=== PATIENT | male | born 1965 | race Caucasian/White ===

== ENCOUNTER 2019-03-22 17:11 | Emergency (ER) | payer SELFPAY ==
[~2019-03-22] VITALS: Ht 170.2 cm; Wt 73.2 kg
[2019-03-22 17:37] VITALS: Ht 170.2 cm; Wt 73.2 kg
[2019-03-22] MEDS ORDERED: ACETAMINOPHEN 500 MG TAB PO STA (17:50)
[2019-03-22] MEDS ORDERED: SOD CHLORIDE 0.9% 1,000 ML IV STA (17:50)
[2019-03-22] MEDS ORDERED: KETOROLAC 15 MG INJ IV STA (17:50)
--- NOTE | 2019-03-22 18:25 | ERD ---
ER Documentation Chief Complaint Chief Complaint PT REPORTS AP, NAUSEA X 3 DAYS HPI Very pleasant 54-year-old gentleman history of hypertension and diabetes who presents with 2 to 3 days of symptoms that include mild headache, sore throat, dry nonproductive cough. He denies any significant shortness of breath. Occasionally he has epigastric abdominal discomfort but no significant nausea vomiting diarrhea or constipation. Abdominal pain seems to be very mild component of this presentation. Patient was started on oral antibiotic by his primary care physician for the symptoms. The patient was only had one dose of this medication. He presents because of a fever. He did not take any Tylenol or Motrin prior to arrival. ROS All systems reviewed and are negative except as per history of present illness. Medications Home Meds Active Scripts Ibuprofen* (Motrin*) 800 Mg Tab, 800 MG PO Q6H PRN for PAIN AND OR ELEVATED TEMP, #30 TAB Prov:CRISPIN JUSTICE MD 03/22/19 Albuterol Sulfate* (Ventolin HFA*) 18 Gm Hfa.aer.ad, 2 PUFF INHALATION Q4H, #1 INHALER Prov:CRISPIN JUSTICE MD 03/22/19 Allergies Allergies: Coded Allergies: No Known Allergy (Unverified , 03/22/19) PMhx/Soc Medical and Surgical Hx: pt denies Surgical Hx Hx Cardiac Disorders: Yes (HTN, HYPERLIPIDEMIA) Hx Alcohol Use: No Hx Substance Use: No Hx Tobacco Use: No Smoking Status: Never smoker FmHx Family History: diabetes Physical Exam Vitals Vital Signs Date Temp Pulse Resp B/P (MAP) Pulse Ox O2 O2 Flow FiO2 Time Delivery Rate 03/22/19 112 22 139/79 98 Nasal 2.0 18:33 (99) Cannula 03/22/19 103.4 18:08 03/22/19 103.4 119 22 139/79 96 Room Air 18:01 (99) 03/22/19 102.4 121 20 160/79 95 17:37 (106) Physical Exam General: Well developed, well nourished, no acute distress Head: Normocephalic, atraumatic. Eyes: Pupils equally reactive, EOM intact ENT: Moist mucous membranes, posterior pharynx without swelling or exudates, uvula midline, tympanic membranes are nonbulging bilaterally Neck: Supple, no lymphadenopathy Respiratory: Lungs clear bilaterally, no distress Cardiovascular: RRR, no murmurs, rubs, or gallops Abdominal: Soft, non-tender, non-distended, no peritoneal signs : Deferred MSK: No edema, no unilateral swelling, 5/5 strength Neurologic: Alert and oriented, moving all extremities, normal speech, no focal weakness, no cerebellar signs Skin: No rash Psych: Normal mood Result Diagram: 03/22/19 1755 03/22/19 1754 Results 24 hrs Laboratory Tests Test 03/22/19 17:53 03/22/19 17:54 White Blood Count 5.4 10^3/ul Red Blood Count 2.91 10^6/ul Hemoglobin 9.1 g/dl Hematocrit 27.0 % Mean Corpuscular Volume 92.8 fl Mean Corpuscular Hemoglobin 31.3 pg Mean Corpuscular Hemoglobin Concent 33.7 g/dl Red Cell Distribution Width 13.2 % Platelet Count 117 10^3/UL Mean Platelet Volume 8.8 fl Immature Granulocytes % 7.800 % Neutrophils % 56.1 % Lymphocytes % 21.1 % Monocytes % 14.8 % Eosinophils % 0.0 % Basophils % 0.2 % Nucleated Red Blood Cells % 0.0 /100WBC Immature Granulocytes # 0.420 10^3/ul Neutrophils # 3.0 10^3/ul Lymphocytes # 1.1 10^3/ul Monocytes # 0.8 10^3/ul Eosinophils # 0.0 10^3/ul Basophils # 0.0 10^3/ul Nucleated Red Blood Cells # 0.0 10^3/ul Sodium Level 133 mmol/L Potassium Level 4.0 mmol/L Chloride Level 98 mmol/L Carbon Dioxide Level 24 mmol/L Anion Gap 11 Blood Urea Nitrogen 14 mg/dl Creatinine 0.83 mg/dl Est Glomerular Filtrat Rate mL/min > 60 mL/min Glucose Level 109 mg/dl Calcium Level 8.8 mg/dl Current Medications Medications Dose Sig/Oj Start Time Status Last (Trade) Ordered Route PRN Stop Time Admin Dose Reason Admin Sodium 1,000 ml @ Q1H STAT 03/22/19 DC 03/22/19 Chloride 1,000 mls/hr IV 17:50 18:05 03/22/19 18:49 Ketorolac 15 mg ONCE STAT 03/22/19 DC 03/22/19 Tromethamine IV 17:50 18:05 (Toradol) 03/22/19 17:52 1,000 mg ONCE STAT 03/22/19 DC 03/22/19 Acetaminophen PO 17:50 18:08 (Tylenol 03/22/19 17:52 Tab) Procedures/MDM EKG, MONITORS, & DIAGNOSTIC IMAGING: Chest x-ray: I reviewed and interpreted a 1 view of the chest Mediastinum: No enlargement Cardiac silhouette: No cardiomegaly Airspace: Clear lung camara bilaterally without evidence of pneumothorax Bones: No evidence of fracture LAB INTERPRETATION: I reviewed the laboratory testing and it shows mild anemia consistent with his reported baseline MEDICAL DECISION MAKING: The patient signs and symptoms are very consistent with likely viral upper respiratory tract infection. The patient does have a fever and needs to be evaluated for pneumonia but the patient initially started what appears to be amoxicillin. Patient does not have any clinical signs or symptoms concerning for pneumonia. The abdominal exam is benign without concern for acute intraabdominal process. Abdominal pain seems to be a very mild component of his symptomatology. 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 No concern for acute appendicitis or alternative acute interabdominal process. ER COURSE: * The patient continues to be well-appearing, he has been improved symptomatically with IV fluids and antipyretics. Vital signs improving. * No laboratory testing or diagnostic imaging suggestive of bacterial illness. The patient can continue his azithromycin given by his primary care physician. Again however this is more likely consistent with viral process. Return precautions were discussed and understood. * Outpatient follow-up for his baseline anemia is appropriate CONSULTATION: None DISPOSITION PLAN: The patient does not have an identifiable emergent medical condition that warrants inpatient hospitalization at this time. The patient is deemed safe for discharge with outpatient follow-up. We discussed follow up with the patient's primary care doctor within 24 to 48 h ours as needed. We also discussed return to the emergency room for worsening symptoms or worsening condition. Outpatient referral: None required Discharge Medications: Ventolin, Motrin Departure Diagnosis: Primary Impression: Acute bronchitis Bronchitis organism: unspecified organism Qualified Codes: J20.9 - Acute bronchitis, unspecified Additional Impression: Anemia Anemia type: unspecified type Qualified Codes: D64.9 - Anemia, unspecified Condition: Stable CRISPIN JUSTICE MD Mar 22, 2019 18:25
[2019-03-22 19:02] VITALS: BP 129/77; PULSE 114; RESP 24
[2019-03-22] MEDS ORDERED: IBUP800T48 PO (19:02)
[2019-03-22] MEDS ORDERED: ALBU18HF INHALATION (19:02)
[2019-03-23] MEDS ORDERED: METF500T24 PO (15:29)
[2019-03-23] MEDS ORDERED: ACET325T45 PO (15:29)
[2019-03-23] MEDS ORDERED: ONDA4TAB13 PO (15:29)
[2019-03-23] MEDS ORDERED: AZIT500T5 PO (15:30)
[2019-03-23] MEDS ORDERED: LISI-471 PO (16:07)
[2019-03-23] MEDS ORDERED: METO-429 PO (16:07)
== END 2019-03-22 19:10 | disposition home or self-care (01) ==
LOC: E/R 17:11
DX: J20.9 Acute bronchitis, unspecified (principal); I10 Essential (primary) hypertension; E11.9 Type 2 diabetes mellitus without complications; D64.9 Anemia, unspecified
CPT/HCPCS: 36415; 71045; 80048; 85025; 96374; 99284; J1885; J7030

== ENCOUNTER 2019-03-23 14:36 | Inpatient (IN) | payer MEDICAID ==
[~2019-03-23] VITALS: Ht 167.6 cm; Wt 70.5 kg
[~2019-03-23 14:36] MED LIST: ALBU18HF INHALATION; IBUP800T48 PO
[2019-03-23] MEDS ORDERED: METF500T24 PO (15:29)
[2019-03-23] MEDS ORDERED: ONDA4TAB13 PO (15:29)
[2019-03-23] MEDS ORDERED: ACET325T45 PO (15:29)
[2019-03-23] MEDS ORDERED: AZIT500T5 PO (15:30)
[2019-03-23] MEDS ORDERED: METO-429 PO (16:07)
[2019-03-23] MEDS ORDERED: LISI-471 PO (16:07)
[2019-03-23] MEDS ORDERED: ONDANSETRON 4 MG INJ IV PRN (16:30)
[2019-03-23] MEDS ORDERED: ACETAMINOPHEN 325 MG TAB PO PRN (16:30)
--- NOTE | 2019-03-23 16:35 | ERD ---
ER Documentation Chief Complaint Chief Complaint called back to er for abnoraml lab results from yesterday HPI Patient is a 54-year-old male with hypertension and diabetes who presents with blasts in his blood. Please note a glass ribbon machine operator assistant was used for the entire history and physical exam. The patient was seen yesterday for multiple complaints and was diagnosed with bronchitis. CBC was done which showed anemia but today our pathologist Dr. Cash called and said that there were blasts seen on the manual differential. He saw the patient was discharged and want to make sure the patient was followed up. Therefore the patient was called by myself and our charge nurse to return for reevaluation and admission. The pa tia was seen yesterday for abdominal pain, headache, and cough. He had fever at that time but has had no fever today. His primary doctor is Dr. Cason. ROS All systems reviewed and are negative except as per history of present illness. Medications Home Meds Active Scripts Ibuprofen* (Motrin*) 800 Mg Tab, 800 MG PO Q6H PRN for PAIN AND OR ELEVATED TEMP, #30 TAB Prov:CRISPIN JUSTICE MD 03/22/19 Reported Medications Metoprolol Tartrate* (Lopressor*) 50 Mg Tab, 50 MG PO DAILY, #60 TAB 03/23/19 Lisinopril* (Lisinopril*) 20 Mg Tablet, 20 MG PO DAILY, #30 TAB 03/23/19 Azithromycin* (Azithromycin*) 500 Mg Tablet, 500 MG PO DAILY, TAB START DATE 03/21/19 03/23/19 Acetaminophen* (Acetaminophen*) 325 Mg Tablet, 325 MG PO QID PRN for PAIN AND OR ELEVATED TEMP, #30 TAB 03/23/19 Ondansetron Hcl* (Zofran*) 4 Mg Tab, 4 MG PO TID PRN for NAUSEA AND OR VOMITING, TAB 03/23/19 Metformin Hcl* (Metformin Hcl*) 500 Mg Tablet, 500 MG PO WITH BREAKFAST DINNE, #60 TAB 03/23/19 Discontinued Scripts Albuterol Sulfate* (Ventolin HFA*) 18 Gm Hfa.aer.ad, 2 PUFF INHALATION Q4H, #1 INHALER Prov:CRISPIN JUSTICE MD 03/22/19 Allergies Allergies: Coded Allergies: No Known Allergy (Unverified , 03/23/19) PMhx/Soc History of Surgery: No Anesthesia Reaction: No Hx Neurological Disorder: No Hx Respiratory Disorders: No Hx Cardiac Disorders: Yes (HTN, HYPERLIPIDEMIA) Hx Psychiatric Problems: No Hx Miscellaneous Medical Probl: No Hx Alcohol Use: No Hx Substance Use: No Hx Tobacco Use: No Smoking Status: Never smoker FmHx Family History: No diabetes Physical Exam Vitals Vital Signs Date Temp Pulse Resp B/P (MAP) Pulse Ox O2 O2 Flow FiO2 Time Delivery Rate 03/23/19 98.2 100 18 150/91 96 Room Air 15:15 (110) 03/23/19 98.2 114 18 152/79 98 14:40 (103) Physical Exam Const: No acute distress Head: Atraumatic Eyes: Normal Conjunctiva ENT: Normal External Ears, Nose and Mouth. Neck: Full range of motion. No meningismus. Resp: Clear to auscultation bilaterally Cardio: Regular rate and rhythm, no murmurs Abd: Soft, non tender, non distended. Normal bowel sounds Skin: No petechiae or rashes Back: No midline or flank tenderness Ext: No cyanosis, or edema Neur: Awake and alert Psych: Normal Mood and Affect Result Diagram: 03/23/19 1518 03/23/19 1518 Results 24 hrs Laboratory Tests Test 03/23/19 15:18 White Blood Count 5.8 10^3/ul Red Blood Count 2.83 10^6/ul Hemoglobin 8.8 g/dl Hematocrit 25.7 % Mean Corpuscular Volume 90.8 fl Mean Corpuscular Hemoglobin 31.1 pg Mean Corpuscular Hemoglobin Concent 34.2 g/dl Red Cell Distribution Width 13.4 % Platelet Count 107 10^3/UL Mean Platelet Volume 9.0 fl Immature Granulocytes % 5.000 % Neutrophils % 57.5 % Segmented Neutrophils % (Manual) 63 % Lymphocytes % 24.2 % Lymphocytes % (Manual) 27 % Monocytes % 13.1 % Monocytes % (Manual) 2 % Eosinophils % 0.0 % Basophils % 0.2 % Promyelocytes % (Manual) 1 % Blast Cells % (Manual) 7.0 % Nucleated Red Blood Cells % 0.0 /100WBC Immature Granulocytes # 0.290 10^3/ul Neutrophils # 3.3 10^3/ul Lymphocytes (Manual) 1.5 10^3/ul Lymphocytes # 1.4 10^3/ul Monocytes # 0.8 10^3/ul Monocytes # (Manual) 0.1 10^3/ul Eosinophils # 0.0 10^3/ul Basophils # 0.0 10^3/ul Promyelocytes # 0.0 10^3/ul Nucleated Red Blood Cells # 0.0 10^3/ul Platelet Estimate NORMAL Polychromasia 1+ Sodium Level 133 mmol/L Potassium Level 3.8 mmol/L Chloride Level 100 mmol/L Carbon Dioxide Level 20 mmol/L Anion Gap 13 Blood Urea Nitrogen 21 mg/dl Creatinine 1.15 mg/dl Est Glomerular Filtrat Rate mL/min > 60 mL/min Glucose Level 152 mg/dl Calcium Level 8.5 mg/dl Total Bilirubin 0.6 mg/dl Direct Bilirubin 0.00 mg/dl Indirect Bilirubin 0.6 mg/dl Aspartate Amino Transf (AST/SGOT) 17 IU/L Alanine Aminotransferase (ALT/SGPT) 22 IU/L Alkaline Phosphatase 81 IU/L Lactate Dehydrogenase 597 IU/L Total Protein 7.6 g/dl Albumin 3.4 g/dl Globulin 4.20 g/dl Albumin/Globulin Ratio 0.80 Lipase 23 U/L Current Medications Medications Dose Sig/Oj Start Time Status Last (Trade) Ordered Route PRN Stop Time Admin Dose Reason Admin Ondansetron 4 mg BRIDGE ORDER 03/23/19 HCl (Zofran PRN IV 16:30 Inj) NAUSEA/VOMITI 03/24/19 16:29 NG 650 mg ER BRIDGE 03/23/19 Acetaminophen PRN PO 16:30 (Tylenol .MILD PAIN 03/24/19 16:29 Tab) 1-3 OR TEMP Procedures/MDM Patient is a 54-year-old male who presents with anemia with blasts in his blood. I am concerned for a bone marrow cancer. I doubt sepsis at this time. The patient will be admitted to the care of the panel team to a medical surgical bed. He will likely need bone marrow biopsy to confirm his diagnosis. I believe inpatient admission is appropriate. 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
--- NOTE | 2019-03-23 17:26 | HP ---
Date/Time of Note Date/Time of Note DATE: 03/23/19 TIME: 17:25 Assessment/Plan VTE Prophylaxis Pharmacological prophylaxis: NA/contraindicated Pharm contraindication: thrombocytopenia Lines/Catheters IV [facility] Assessment/Plan Hospital Course 54-year-old male with comorbidities including hypertension and diabetes mellitus who presented to the emergency room on 03/22/2019 with febrile illness and was discharged home on oral antibiotics, who was called back on 03/23/2019 as per the instruction of the pathologist for increased blast cells on CBC drawn on 03/22/2019. 1. Febrile illness with underlying anemia, thrombocytopenia, and blast cells on manual differential. To rule out myeloproliferative disorder. Obtain hematology consult. Bone marrow biopsy if required will be deferred to hematology. Obtain LDH and haptoglobin. Obtain iron panel. Obtain stool for OB. 2. Diabetes mellitus type 2. Obtain hemoglobin A1c to evaluate the blood glucose control over the past 3 months. Start the patient on sliding scale insulin along with basal insulin. 3. Hypertension. Resume antihypertensives. Plan: The patient will be admitted to inpatient medical surgical floor. The patient will be started on a carbohydrate controlled diet. The patient will be started on DVT prophylaxis (SCDs). The patient will remain a full code. Activities will be as tolerated. The rest of the patient's management will be based on the clinical course, inputs from consultants, and the results of diagnostic studies. Based on the patient's clinical presentation, he most probably requires at least 2 midnights' stay for further management and evaluation of his clinical presentation. The patient was seen in collaboration with Dr. Avilez. Result Diagram: 03/23/19 1518 03/23/19 1518 Results 24hrs Laboratory Tests Test 03/23/19 15:18 White Blood Count 5.8 Red Blood Count 2.83 L Hemoglobin 8.8 L Hematocrit 25.7 L Mean Corpuscular Volume 90.8 Mean Corpuscular Hemoglobin 31.1 Mean Corpuscular Hemoglobin Concent 34.2 Red Cell Distribution Width 13.4 Platelet Count 107 L Mean Platelet Volume 9.0 Immature Granulocytes % 5.000 H Neutrophils % 57.5 Segmented Neutrophils % (Manual) 63 Lymphocytes % 24.2 Lymphocytes % (Manual) 27 Monocytes % 13.1 H Monocytes % (Manual) 2 Eosinophils % 0.0 Basophils % 0.2 Promyelocytes % (Manual) 1 H Blast Cells % (Manual) 7.0 H Nucleated Red Blood Cells % 0.0 Immature Granulocytes # 0.290 H Neutrophils # 3.3 Lymphocytes (Manual) 1.5 Lymphocytes # 1.4 Monocytes # 0.8 Monocytes # (Manual) 0.1 L Eosinophils # 0.0 Basophils # 0.0 Promyelocytes # 0.0 Nucleated Red Blood Cells # 0.0 Platelet Estimate NORMAL Polychromasia 1+ Sodium Level 133 L Potassium Level 3.8 Chloride Level 100 Carbon Dioxide Level 20 L Anion Gap 13 Blood Urea Nitrogen 21 H Creatinine 1.15 Est Glomerular Filtrat Rate mL/min > 60 Glucose Level 152 Calcium Level 8.5 Total Bilirubin 0.6 Direct Bilirubin 0.00 Indirect Bilirubin 0.6 Aspartate Amino Transf (AST/SGOT) 17 Alanine Aminotransferase (ALT/SGPT) 22 Alkaline Phosphatase 81 Lactate Dehydrogenase 597 Total Protein 7.6 Albumin 3.4 Globulin 4.20 H Albumin/Globulin Ratio 0.80 Lipase 23 HPI/ROS Admit Date/Time Admit Date/Time Hx of Present Illness Reason for admission: Called back for further work-up because of presence of blastic cells in the blood work-up done on 03/22/2019. Consultants 1. Hematology/oncology. This is a 54-year-old male with past medical history of hypertension and diabetes mellitus type 2. The patient came to the emergency room on 03/22/2019 because of fevers and was discharged home on Zithromax for possible underlying upper respiratory infection. The patient's blood that was drawn on 03/22/2019 showed 4% blast cells on manual differential. Therefore, the hospital pathologist informed the ER physician and the ER physician called the patient back for further work-up for any underlying myeloproliferative disorder. The patient has been complaining of night sweats for the past 3 weeks. The patient also verbalized intentional/unintentional weight loss of 9 pounds over the past 1 month. He was complaining of occasional dry cough. He denied any hematemesis, hematochezia or melena. He was complaining of constipation. Lab work in the emergency room on 03/23/2019 showed normocytic anemia with thrombocytopenia and blast cells of 7%. The patient also had minimal hyponatremia. The patient's chest x-ray that was done on 03/22/2019 was negative for any acute cardiopulmonary process. ROS Constitutional: chills, febrile, other (night sweats, weight loss (intentional Vs unintentional)) Eyes: no complaints ENT: no complaints Respiratory: cough Cardiovascular: no complaints Gastrointestinal: constipation Genitourinary: no complaints Musculoskeletal: no complaints Skin: no complaints Neurologic: no complaints Endocrine: no complaints Lymphatic: no complaints Psychological: no complaints Immunologic: no complaints PMH/Family/Social Past Medical History 1. HTN. 2. DM. 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 Alcohol Use: occasionally Smoking Status: Never smoker Drug Use: none Exam/Review of Systems Vital Signs Vitals Vital Signs Date Temp Pulse Resp B/P (MAP) Pulse Ox O2 O2 Flow FiO2 Time Delivery Rate 03/23/19 98.2 100 18 150/91 96 Room Air 15:15 (110) Exam Exam General: Adequately build 54 year-old male lying in bed in no apparent distress. HEENT: Normocephalic, atraumatic. Eyes: Anicteric sclerae, conjunctivae clear. ENT: Nasal septum midline, oral mucosa moist. Neck supple, no JVD noticed. Respiratory: Bilaterally clear breath sounds. No use of accessory muscles of respiration. No adventitious breath sounds. Cardiovascular: S1, S2 heard. Regular rate and rhythm. Abdomen: Soft, nontender, and nondistended. Bowel sounds positive in all 4 quadrants. Genitourinary: Deferred. Extremities: No cyanosis, no clubbing, no edema. Peripheral pulses palpable. Neurologic: Cranial nerves II through XII grossly intact. The patient is awake, alert, and oriented. Skin: Normal skin turgor. No skin rashes. KATIE PACE NP Mar 23, 2019 17:26
[2019-03-23] MEDS ORDERED: GLUCOSE GEL 15 GRAM TUBE PO PRN ×2 (18:00)
[2019-03-23] MEDS: INSULIN ASPART [NOVOLOG] 3 ML PEN SC SCH ×2 (18:00→21:00)
[2019-03-23] MEDS ORDERED: GLUCAGON 1 MG INJ IM PRN (18:00)
[2019-03-23] MEDS ORDERED: NACL 0.9% 3 ML SYG IV SCH (18:00)
[2019-03-23] MEDS ORDERED: DEXTROSE 50% 50 ML SYRINGE IV PRN ×2 (18:00)
[2019-03-23] MEDS ORDERED: GLUCOSE GEL 15 GRAM TUBE BUCCAL PRN (18:00)
[2019-03-23 20:00] VITALS: BMI 26.3
[2019-03-23 20:05] VITALS: BP 142/81; PULSE 104; RESP 18
[2019-03-23] MEDS: SOD CHLORIDE 0.9% 1,000 ML IV SCH (20:50)
[2019-03-23] MEDS: LISINOPRIL 20 MG TAB PO SCH (22:04)
[2019-03-23] MEDS: METOPROLOL 50 MG TAB PO SCH (22:05)
[2019-03-23] MEDS: POLYETHYLENE GLYCOL 17 GM PACKET PO SCH (22:08)
[2019-03-23] MEDS: INSULIN GLARGINE [LANTus] (100 UNITS/ML) SYG SC SCH (22:14)
[2019-03-24 02:00] VITALS: BP 131/75; PULSE 94; RESP 19
[2019-03-24] MEDS: SOD CHLORIDE 0.9% 1,000 ML IV SCH ×2 (04:00→12:27)
[2019-03-24 07:44] VITALS: BP 141/82; PULSE 116; RESP 16
[2019-03-24] MEDS: POLYETHYLENE GLYCOL 17 GM PACKET PO SCH ×2 (08:10→21:00)
[2019-03-24] MEDS: METOPROLOL 50 MG TAB PO SCH (08:11)
[2019-03-24] MEDS: LISINOPRIL 20 MG TAB PO SCH (08:11)
[2019-03-24] MEDS: INSULIN ASPART [NOVOLOG] 3 ML PEN SC SCH ×4 (08:12→22:00)
--- NOTE | 2019-03-24 09:30 | CONS ---
Assessment/Plan Assessment/Plan Assessment/Plan (Daily) 54yo male with h/o HTN and DM admitted with progressive fatigue and fevers. Pt found to have pancytopenia with blasts noted on peripheral smear. 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 Pt needs to undergo a bone marrow biopsy to confirm likely AML. -I will order a bone marrow bx for basil (perhaps tomorrow) -Check coags to rule out signs of APL-not clinically likely. -Keep on Neutropenic precautions and diet -Cx if temp over 100.5. Monitor for secondary infection. -Check 2D echo to assess EF prior to starting likely anthracycline-based chemotherapy Plan discussed before pt and his . Nurse aware. Drs. Avery/Brinda to assume care in am. Sujey Salazar MD Hematology/Oncology Consultation Date/Type/Reason Admit Date/Time Date of Consultation: Mar 24, 2019 Type of Consult Hematology Consult Reason for Consultation Pancytopenia with blasts noted on peripheral smear Requesting Provider: KATIE PACE NP Date/Time of Note DATE: 03/24/19 TIME: 09:22 Hx of Present Illness 54yo male with past medical history notable for HTN and type 2DM admitted with progressive fatigue and fevers x 2-3 weeks. Pt found to have pancytopenia on admission with 4% blasts seen on peripheral smear. I have been asked to the pt for hematological examination. 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 He denies pain but has become more fatigued and has noted subjective fevers and chills with occasional sweats. He denies bruising, bleeding, diarrhea, cough, sob, chest pain, or nausea. Constitutional: chills, febrile Past Medical History Medical History: diabetes, hypertension Home Meds Active Scripts Ibuprofen* (Motrin*) 800 Mg Tab, 800 MG PO Q6H PRN for PAIN AND OR ELEVATED TEMP, #30 TAB Prov:CRISPIN JUSTICE MD 03/22/19 Reported Medications Metoprolol Tartrate* (Lopressor*) 50 Mg Tab, 50 MG PO DAILY, #60 TAB 03/23/19 Lisinopril* (Lisinopril*) 20 Mg Tablet, 20 MG PO DAILY, #30 TAB 03/23/19 Azithromycin* (Azithromycin*) 500 Mg Tablet, 500 MG PO DAILY, TAB START DATE 03/21/19 03/23/19 Acetaminophen* (Acetaminophen*) 325 Mg Tablet, 325 MG PO QID PRN for PAIN AND OR ELEVATED TEMP, #30 TAB 03/23/19 Ondansetron Hcl* (Zofran*) 4 Mg Tab, 4 MG PO TID PRN for NAUSEA AND OR VOMITING, TAB 03/23/19 Metformin Hcl* (Metformin Hcl*) 500 Mg Tablet, 500 MG PO WITH BREAKFAST DINNE, #60 TAB 03/23/19 Discontinued Scripts Albuterol Sulfate* (Ventolin HFA*) 18 Gm Hfa.aer.ad, 2 PUFF INHALATION Q4H, #1 INHALER Prov:CRISPIN JUSTICE MD 03/22/19 Medications Current Medications Ondansetron HCl (Zofran Inj) 4 mg BRIDGE ORDER PRN IV NAUSEA/VOMITING; Start 03/23/19 at 16:30; Stop 03/24/19 at 16:29 Acetaminophen (Tylenol Tab) 650 mg ER BRIDGE PRN PO .MILD PAIN 1-3 OR TEMP; Start 03/23/19 at 16:30; Stop 03/24/19 at 16:29 Lisinopril (Zestril) 20 mg DAILY PO Last administered on 03/24/19at 08:11; Admin Dose 20 MG; Start 03/23/19 at 21:00 Metoprolol Tartrate (Lopressor) 50 mg DAILY PO Last administered on 03/24/19at 08:11; Admin Dose 50 MG; Start 03/23/19 at 21:00 Insulin Glargine (Lantus) 11 units DAILY@2000 SC Last administered on 03/23/19at 22:14; Admin Dose 11 UNITS; Start 03/23/19 at 20:00 Insulin Aspart (Novolog Insulin Pen) NOVOLOG *MILD* ALGORITHM WITH MEALS BEDTIME SC Last administered on 03/24/19at 08:12; Admin Dose 1 UNIT; Start 03/23/19 at 18:00 IV Flush (NS 3 ml) 3 ml PER PROTOCOL IV ; Start 03/23/19 at 18:00 Ondansetron HCl (Zofran Inj) 4 mg Q6H PRN IV NAUSEA/VOMITING; Start 03/23/19 at 18:00 Acetaminophen (Tylenol Tab) 650 mg Q6H PRN PO .PAIN 1-3 OR TEMP; Start 03/23/19 at 18:00 Acetaminophen/ Hydrocodone Bitart ([place] (5/325)) 1 tab Q6H PRN PO .MOD PAIN 4- 6; Start 03/23/19 at 18:00 Polyethylene Glycol (Miralax) 17 gm BID PO Last administered on 03/24/19at 08:10; Admin Dose 17 GM; Start 03/23/19 at 21:00 Miscellaneous Information 1 ea NOTE XX ; Start 03/23/19 at 18:00 Glucose (Glutose) 15 gm Q15M PRN PO DECREASED GLUCOSE; Start 03/23/19 at 18:00 Glucose (Glutose) 22.5 gm Q15M PRN PO DECREASED GLUCOSE; Start 03/23/19 at 18:00 Dextrose (D50w Syringe) 25 ml Q15M PRN IV DECREASED GLUCOSE; Start 03/23/19 at 18:00 Dextrose (D50w Syringe) 50 ml Q15M PRN IV DECREASED GLUCOSE; Start 03/23/19 at 18:00 Glucagon (Glucagen) 1 mg Q15M PRN IM DECREASED GLUCOSE; Start 03/23/19 at 18:00 Glucose (Glutose) 15 gm Q15M PRN BUCCAL DECREASED GLUCOSE; Start 03/23/19 at 18:00 Allergies: Coded Allergies: No Known Allergy (Unverified , 03/23/19) Past Surgical History Past Surgical Hx: no surgical history Family History Significant Family History: no pertinent family hx Social History Alcohol Use: occasionally Smoking Status: Never smoker Drug Use: none Exam/Review of Systems Exam Vitals Vital Signs Date Temp Pulse Resp B/P (MAP) Pulse Ox O2 O2 Flow FiO2 Time Delivery Rate 03/24/19 99.8 116 16 141/82 93 07:44 (101) 03/24/19 Room Air 02:00 Intake and Output 03/23/19 03/23/19 03/24/19 1515:00 23:00 07:00 IntakeIntake Total 360 ml 1000 ml BalanceBalance 360 ml 1000 ml Constitutional: alert, oriented, well developed Cardiovascular: other (tachycardia) Skin: other (pale complexion) Results Result Diagram: 03/24/19 0513 03/24/19 0513 Results 24hrs Laboratory Tests Test 03/23/19 15:17 03/23/19 15:18 03/23/19 21:58 03/24/19 05:13 Hemoglobin A1c 9.6 H Iron Level 18 L Total Iron Binding 192 L Capacity Percent Iron 9 L Saturation Ferritin 573.0 H White Blood Count 5.8 2.8 #L Red Blood Count 2.83 L 2.58 L Hemoglobin 8.8 L 8.0 L Hematocrit 25.7 L 24.0 L Mean Corpuscular 90.8 93.0 Volume Mean Corpuscular 31.1 31.0 Hemoglobin Mean Corpuscular 34.2 33.3 Hemoglobin Concent Red Cell 13.4 13.6 Distribution Width Platelet Count 107 L 115 L Mean Platelet Volume 9.0 9.3 Immature 5.000 H 6.300 H Granulocytes % Neutrophils % 57.5 Segmented 63 43 Neutrophils % (Manual) Lymphocytes % 24.2 Lymphocytes % 27 44 (Manual) Monocytes % 13.1 H Monocytes % (Manual) 2 1 Eosinophils % 0.0 Basophils % 0.2 Promyelocytes % 1 H 2 H (Manual) Blast Cells % 7.0 H 4.0 H (Manual) Nucleated Red Blood 0.0 0.0 Cells % Immature 0.290 H 0.180 H Granulocytes # Neutrophils # 3.3 Lymphocytes (Manual) 1.5 1.2 Lymphocytes # 1.4 Monocytes # 0.8 Monocytes # (Manual) 0.1 L 0.0 L Eosinophils # 0.0 Basophils # 0.0 Promyelocytes # 0.0 0.0 Nucleated Red Blood 0.0 Cells # Platelet Estimate NORMAL DECREASED Polychromasia 1+ 1+ Sodium Level 133 L 135 Potassium Level 3.8 3.6 Chloride Level 100 104 Carbon Dioxide Level 20 L 22 Anion Gap 13 9 Blood Urea Nitrogen 21 H 16 Creatinine 1.15 0.75 Est Glomerular > 60 > 60 Filtrat Rate mL/min Glucose Level 152 129 Calcium Level 8.5 8.6 Total Bilirubin 0.6 0.5 Direct Bilirubin 0.00 0.00 Indirect Bilirubin 0.6 0.5 Aspartate Amino 17 13 L Transf (AST/SGOT) Alanine 22 20 Aminotransferase (AL T/SGPT) Alkaline Phosphatase 81 67 Lactate 597 Dehydrogenase Total Protein 7.6 6.7 Albumin 3.4 3.0 L Globulin 4.20 H 3.70 H Albumin/Globulin 0.80 0.81 Ratio Lipase 23 Bedside Glucose 96 Band Neutrophils % 5 H (Manual) Myelocytes % 1 H (Manual) Neutrophils # 1.2 L (Manual) Band Neutrophils # 0.1 Myelocytes # 0.0 Poikilocytosis 1+ Anisocytosis 1+ Erythrocyte 128 H Sedimentation Rate Phosphorus Level 3.3 Magnesium Level 1.9 C-Reactive Protein 24.7 H Triglycerides Level 70 Cholesterol Level 84 L LDL Cholesterol, 46 Calculated HDL Cholesterol 24 L Cholesterol/HDL 3.5 Ratio Test 03/24/19 08:00 Bedside Glucose 158 Medications Medication Current Medications Ondansetron HCl (Zofran Inj) 4 mg BRIDGE ORDER PRN IV NAUSEA/VOMITING; Start 03/23/19 at 16:30; Stop 03/24/19 at 16:29 Acetaminophen (Tylenol Tab) 650 mg ER BRIDGE PRN PO .MILD PAIN 1-3 OR TEMP; Start 03/23/19 at 16:30; Stop 03/24/19 at 16:29 Lisinopril (Zestril) 20 mg DAILY PO Last administered on 03/24/19at 08:11; Admin Dose 20 MG; Start 03/23/19 at 21:00 Metoprolol Tartrate (Lopressor) 50 mg DAILY PO Last administered on 03/24/19at 08:11; Admin Dose 50 MG; Start 03/23/19 at 21:00 Insulin Glargine (Lantus) 11 units DAILY@2000 SC Last administered on 03/23/19at 22:14; Admin Dose 11 UNITS; Start 03/23/19 at 20:00 Insulin Aspart (Novolog Insulin Pen) NOVOLOG *MILD* ALGORITHM WITH MEALS BEDTIME SC Last administered on 03/24/19at 08:12; Admin Dose 1 UNIT; Start 03/23/19 at 18:00 IV Flush (NS 3 ml) 3 ml PER PROTOCOL IV ; Start 03/23/19 at 18:00 Ondansetron HCl (Zofran Inj) 4 mg Q6H PRN IV NAUSEA/VOMITING; Start 03/23/19 at 18:00 Acetaminophen (Tylenol Tab) 650 mg Q6H PRN PO .PAIN 1-3 OR TEMP; Start 03/23/19 at 18:00 Acetaminophen/ Hydrocodone Bitart ([place] (5/325)) 1 tab Q6H PRN PO .MOD PAIN 4- 6; Start 03/23/19 at 18:00 Polyethylene Glycol (Miralax) 17 gm BID PO Last administered on 03/24/19at 08:10; Admin Dose 17 GM; Start 03/23/19 at 21:00 Miscellaneous Information 1 ea NOTE XX ; Start 03/23/19 at 18:00 Glucose (Glutose) 15 gm Q15M PRN PO DECREASED GLUCOSE; Start 03/23/19 at 18:00 Glucose (Glutose) 22.5 gm Q15M PRN PO DECREASED GLUCOSE; Start 03/23/19 at 18:00 Dextrose (D50w Syringe) 25 ml Q15M PRN IV DECREASED GLUCOSE; Start 03/23/19 at 18:00 Dextrose (D50w Syringe) 50 ml Q15M PRN IV DECREASED GLUCOSE; Start 03/23/19 at 18:00 Glucagon (Glucagen) 1 mg Q15M PRN IM DECREASED GLUCOSE; Start 03/23/19 at 18:00 Glucose (Glutose) 15 gm Q15M PRN BUCCAL DECREASED GLUCOSE; Start 03/23/19 at 18:00 SUJEY SALAZAR Mar 24, 2019 09:30
--- NOTE | 2019-03-24 09:47 | PN ---
Date/Time of Note Date/Time of Note DATE: 03/24/19 TIME: 09:46 Assessment/Plan VTE Prophylaxis Risk score (from Ns)>0 risk: 1 SCD applied (from Ns): No SCD contraindicated: other Pharmacological prophylaxis: NA/contraindicated Pharm contraindication: low risk/ambulating, thrombocytopenia Lines/Catheters IV [facility] [place] Assessment/Plan Hospital Course SUBJECTIVE: Complains of constipation. OBJECTIVE: Physical Exam General: Adequately build 54 year-old male lying in bed in no apparent distress. HEENT: Normocephalic, atraumatic. Eyes: Anicteric sclerae, conjunctivae clear. ENT: Nasal septum midline, oral mucosa moist. Neck supple, no JVD noticed. Respiratory: Bilaterally clear breath sounds. No use of accessory muscles of respiration. No adventitious breath sounds. Cardiovascular: S1, S2 heard. Regular rate and rhythm. Abdomen: Soft, nontender, and nondistended. Bowel sounds positive in all 4 quadrants. Genitourinary: Deferred. Extremities: No cyanosis, no clubbing, no edema. Peripheral pulses palpable. Neurologic: Cranial nerves II through XII grossly intact. The patient is awake, alert, and oriented. Skin: Normal skin turgor. No skin rashes. Labs & Vitals per chart ASSESSMENT & PLAN 54-year-old male with comorbidities including hypertension and diabetes mellitus who presented to the emergency room on 03/22/2019 with febrile illness and was discharged home on oral antibiotics, who was called back on 03/23/2019 as per the instruction of the pathologist for increased blast cells on CBC drawn on 03/22/2019. 1. Febrile illness with pancytopenia and blast cells on manual differential. Being followed by oncology. Blast cells with Candis rods on manual differential suggesting AML. Bone marrow biopsy has been ordered. Monitor for any febrile illness (secondary infection). Neutropenic precautions and neutropenic diet. 2. Diabetes mellitus type 2. Hemoglobin A1c 9.6. Continue the patient on sliding scale insulin along with basal insulin. 3. Hypertension. Continue antihypertensives. 4. Fluids, electrolytes, and nutrition. Carbohydrate controlled, neutropenic diet. 5. DVT prophylaxis. Bilateral SCDs. 6. Plan. Continue to monitor for any secondary infection. Await bone marrow biopsy. Bowel regimen for constipation. The patient was seen in collaboration with Dr. Avilez. Result Diagram: 03/24/19 0513 03/24/19 0513 Results 24hrs Laboratory Tests Test 03/23/19 15:17 03/23/19 15:18 03/23/19 21:58 03/24/19 05:13 Hemoglobin A1c 9.6 H Iron Level 18 L Total Iron Binding 192 L Capacity Percent Iron 9 L Saturation Ferritin 573.0 H White Blood Count 5.8 2.8 #L Red Blood Count 2.83 L 2.58 L Hemoglobin 8.8 L 8.0 L Hematocrit 25.7 L 24.0 L Mean Corpuscular 90.8 93.0 Volume Mean Corpuscular 31.1 31.0 Hemoglobin Mean Corpuscular 34.2 33.3 Hemoglobin Concent Red Cell 13.4 13.6 Distribution Width Platelet Count 107 L 115 L Mean Platelet Volume 9.0 9.3 Immature 5.000 H 6.300 H Granulocytes % Neutrophils % 57.5 Segmented 63 43 Neutrophils % (Manual) Lymphocytes % 24.2 Lymphocytes % 27 44 (Manual) Monocytes % 13.1 H Monocytes % (Manual) 2 1 Eosinophils % 0.0 Basophils % 0.2 Promyelocytes % 1 H 2 H (Manual) Blast Cells % 7.0 H 4.0 H (Manual) Nucleated Red Blood 0.0 0.0 Cells % Immature 0.290 H 0.180 H Granulocytes # Neutrophils # 3.3 Lymphocytes (Manual) 1.5 1.2 Lymphocytes # 1.4 Monocytes # 0.8 Monocytes # (Manual) 0.1 L 0.0 L Eosinophils # 0.0 Basophils # 0.0 Promyelocytes # 0.0 0.0 Nucleated Red Blood 0.0 Cells # Platelet Estimate NORMAL DECREASED Polychromasia 1+ 1+ Sodium Level 133 L 135 Potassium Level 3.8 3.6 Chloride Level 100 104 Carbon Dioxide Level 20 L 22 Anion Gap 13 9 Blood Urea Nitrogen 21 H 16 Creatinine 1.15 0.75 Est Glomerular > 60 > 60 Filtrat Rate mL/min Glucose Level 152 129 Calcium Level 8.5 8.6 Total Bilirubin 0.6 0.5 Direct Bilirubin 0.00 0.00 Indirect Bilirubin 0.6 0.5 Aspartate Amino 17 13 L Transf (AST/SGOT) Alanine 22 20 Aminotransferase (AL T/SGPT) Alkaline Phosphatase 81 67 Lactate 597 Dehydrogenase Total Protein 7.6 6.7 Albumin 3.4 3.0 L Globulin 4.20 H 3.70 H Albumin/Globulin 0.80 0.81 Ratio Lipase 23 Bedside Glucose 96 Band Neutrophils % 5 H (Manual) Myelocytes % 1 H (Manual) Neutrophils # 1.2 L (Manual) Band Neutrophils # 0.1 Myelocytes # 0.0 Poikilocytosis 1+ Anisocytosis 1+ Erythrocyte 128 H Sedimentation Rate Phosphorus Level 3.3 Magnesium Level 1.9 C-Reactive Protein 24.7 H Triglycerides Level 70 Cholesterol Level 84 L LDL Cholesterol, 46 Calculated HDL Cholesterol 24 L Cholesterol/HDL 3.5 Ratio Test 03/24/19 08:00 Bedside Glucose 158 Exam/Review of Systems Exam Vitals Vital Signs Date Temp Pulse Resp B/P (MAP) Pulse Ox O2 O2 Flow FiO2 Time Delivery Rate 03/24/19 99.8 116 16 141/82 93 07:44 (101) 03/24/19 Room Air 02:00 Intake and Output 03/23/19 03/23/19 03/24/19 1515:00 23:00 07:00 IntakeIntake Total 360 ml 1000 ml BalanceBalance 360 ml 1000 ml Results Results 24hrs Laboratory Tests Test 03/23/19 15:17 03/23/19 15:18 03/23/19 21:58 03/24/19 05:13 Hemoglobin A1c 9.6 H Iron Level 18 L Total Iron Binding 192 L Capacity Percent Iron 9 L Saturation Ferritin 573.0 H White Blood Count 5.8 2.8 #L Red Blood Count 2.83 L 2.58 L Hemoglobin 8.8 L 8.0 L Hematocrit 25.7 L 24.0 L Mean Corpuscular 90.8 93.0 Volume Mean Corpuscular 31.1 31.0 Hemoglobin Mean Corpuscular 34.2 33.3 Hemoglobin Concent Red Cell 13.4 13.6 Distribution Width Platelet Count 107 L 115 L Mean Platelet Volume 9.0 9.3 Immature 5.000 H 6.300 H Granulocytes % Neutrophils % 57.5 Segmented 63 43 Neutrophils % (Manual) Lymphocytes % 24.2 Lymphocytes % 27 44 (Manual) Monocytes % 13.1 H Monocytes % (Manual) 2 1 Eosinophils % 0.0 Basophils % 0.2 Promyelocytes % 1 H 2 H (Manual) Blast Cells % 7.0 H 4.0 H (Manual) Nucleated Red Blood 0.0 0.0 Cells % Immature 0.290 H 0.180 H Granulocytes # Neutrophils # 3.3 Lymphocytes (Manual) 1.5 1.2 Lymphocytes # 1.4 Monocytes # 0.8 Monocytes # (Manual) 0.1 L 0.0 L Eosinophils # 0.0 Basophils # 0.0 Promyelocytes # 0.0 0.0 Nucleated Red Blood 0.0 Cells # Platelet Estimate NORMAL DECREASED Polychromasia 1+ 1+ Sodium Level 133 L 135 Potassium Level 3.8 3.6 Chloride Level 100 104 Carbon Dioxide Level 20 L 22 Anion Gap 13 9 Blood Urea Nitrogen 21 H 16 Creatinine 1.15 0.75 Est Glomerular > 60 > 60 Filtrat Rate mL/min Glucose Level 152 129 Calcium Level 8.5 8.6 Total Bilirubin 0.6 0.5 Direct Bilirubin 0.00 0.00 Indirect Bilirubin 0.6 0.5 Aspartate Amino 17 13 L Transf (AST/SGOT) Alanine 22 20 Aminotransferase (AL T/SGPT) Alkaline Phosphatase 81 67 Lactate 597 Dehydrogenase Total Protein 7.6 6.7 Albumin 3.4 3.0 L Globulin 4.20 H 3.70 H Albumin/Globulin 0.80 0.81 Ratio Lipase 23 Bedside Glucose 96 Band Neutrophils % 5 H (Manual) Myelocytes % 1 H (Manual) Neutrophils # 1.2 L (Manual) Band Neutrophils # 0.1 Myelocytes # 0.0 Poikilocytosis 1+ Anisocytosis 1+ Erythrocyte 128 H Sedimentation Rate Phosphorus Level 3.3 Magnesium Level 1.9 C-Reactive Protein 24.7 H Triglycerides Level 70 Cholesterol Level 84 L LDL Cholesterol, 46 Calculated HDL Cholesterol 24 L Cholesterol/HDL 3.5 Ratio Test 03/24/19 08:00 Bedside Glucose 158 Medications Medication Current Medications Ondansetron HCl (Zofran Inj) 4 mg BRIDGE ORDER PRN IV NAUSEA/VOMITING; Start 03/23/19 at 16:30; Stop 03/24/19 at 16:29 Acetaminophen (Tylenol Tab) 650 mg ER BRIDGE PRN PO .MILD PAIN 1-3 OR TEMP; Start 03/23/19 at 16:30; Stop 03/24/19 at 16:29 Lisinopril (Zestril) 20 mg DAILY PO Last administered on 03/24/19at 08:11; Admin Dose 20 MG; Start 03/23/19 at 21:00 Metoprolol Tartrate (Lopressor) 50 mg DAILY PO Last administered on 03/24/19at 08:11; Admin Dose 50 MG; Start 03/23/19 at 21:00 Insulin Glargine (Lantus) 11 units DAILY@2000 SC Last administered on 03/23/19at 22:14; Admin Dose 11 UNITS; Start 03/23/19 at 20:00 Insulin Aspart (Novolog Insulin Pen) NOVOLOG *MILD* ALGORITHM WITH MEALS BEDTIME SC Last administered on 03/24/19at 08:12; Admin Dose 1 UNIT; Start 03/23/19 at 18:00 IV Flush (NS 3 ml) 3 ml PER PROTOCOL IV ; Start 03/23/19 at 18:00 Ondansetron HCl (Zofran Inj) 4 mg Q6H PRN IV NAUSEA/VOMITING; Start 03/23/19 at 18:00 Acetaminophen (Tylenol Tab) 650 mg Q6H PRN PO .PAIN 1-3 OR TEMP; Start 03/23/19 at 18:00 Acetaminophen/ Hydrocodone Bitart ([place] (5/325)) 1 tab Q6H PRN PO .MOD PAIN 4- 6; Start 03/23/19 at 18:00 Polyethylene Glycol (Miralax) 17 gm BID PO Last administered on 03/24/19at 08:10; Admin Dose 17 GM; Start 03/23/19 at 21:00 Miscellaneous Information 1 ea NOTE XX ; Start 03/23/19 at 18:00 Glucose (Glutose) 15 gm Q15M PRN PO DECREASED GLUCOSE; Start 03/23/19 at 18:00 Glucose (Glutose) 22.5 gm Q15M PRN PO DECREASED GLUCOSE; Start 03/23/19 at 18:00 Dextrose (D50w Syringe) 25 ml Q15M PRN IV DECREASED GLUCOSE; Start 03/23/19 at 18:00 Dextrose (D50w Syringe) 50 ml Q15M PRN IV DECREASED GLUCOSE; Start 03/23/19 at 18:00 Glucagon (Glucagen) 1 mg Q15M PRN IM DECREASED GLUCOSE; Start 03/23/19 at 18:00 Glucose (Glutose) 15 gm Q15M PRN BUCCAL DECREASED GLUCOSE; Start 03/23/19 at 18:00 KATIE PACE NP Mar 24, 2019 09:47
[2019-03-24] MEDS ORDERED: MAGNESIUM CITRATE 300 ML BTL PO ONE (11:00)
[2019-03-24 14:32] VITALS: BP 133/83; PULSE 105; RESP 16
[2019-03-24] MEDS: ACETAMINOPHEN 325 MG TAB PO PRN (19:35)
[2019-03-24 19:48] VITALS: BP 130/75; PULSE 95; RESP 17
[2019-03-24] MEDS: INSULIN GLARGINE [LANTus] (100 UNITS/ML) SYG SC SCH (21:58)
[2019-03-25 02:00] VITALS: BP 121/68; PULSE 96; RESP 18
[2019-03-25 02:25] VITALS: PULSE 90
[2019-03-25] MEDS: SOD CHLORIDE 0.9% 1,000 ML IV SCH (08:06)
[2019-03-25] MEDS: METOPROLOL 50 MG TAB PO SCH (08:07)
[2019-03-25] MEDS: POLYETHYLENE GLYCOL 17 GM PACKET PO SCH ×2 (08:07→20:44)
[2019-03-25] MEDS: LISINOPRIL 20 MG TAB PO SCH (08:08)
[2019-03-25] MEDS: INSULIN ASPART [NOVOLOG] 3 ML PEN SC SCH ×4 (08:20→20:47)
[2019-03-25 08:24] VITALS: BP 148/81; PULSE 109; RESP 18
--- NOTE | 2019-03-25 10:47 | PN ---
Date/Time of Note Date/Time of Note DATE: 03/25/19 TIME: 10:41 Assessment/Plan VTE Prophylaxis Risk score (from [facility] [place]0 risk: 3 SCD applied (from [facility] [place]): Yes Pharmacological prophylaxis: other Pharm contraindication: thrombocytopenia Lines/Catheters IV Catheter Type (from [facility]): Peripheral IV Urinary Cath still in place: No Assessment/Plan Hospital Course Assessment and plan 1. Febrile illness with pancytopenia and blast cells on manual differential. - Patient being currently worked up for AML. - Oncologist following -Tentative plan for bone marrow biopsy per oncologist - Continue neutropenic precautions. - Antipyretics as needed for fever. - Monitor for infection. 2.Diabetes type 2. - HbA1c is 9.6 - Continue on insulin regimen. 3. Hypertension. - Continue antihypertensives. Disposition and plan. Monitor for infection. Continue neutropenic precautions. Plan for bone marrow biopsy per oncologist. Follow-up on labs. Discussed plan of care with Dr. Wagner Result Diagram: 03/25/19 0512 03/25/19 0511 Results 24hrs Laboratory Tests Test 03/24/19 10:51 03/24/19 12:22 03/24/19 17:31 03/24/19 21:55 Platelet Count 115 L Prothrombin Time 15.3 H Prothrombin Time 1.2 Ratio INR International 1.20 Normalized Ratio Activated 35.3 H Partial Thromboplast Time Thrombin Time 13.7 L Fibrinogen 738.0 H D-Dimer 2830.41 H D-Dimer Comment Uric Acid 3.8 Bedside Glucose 242 H 196 178 Test 03/25/19 05:08 03/25/19 05:11 03/25/19 05:12 03/25/19 08:06 Phosphorus Level 3.1 Magnesium Level 2.0 Prothrombin Time 14.6 Prothrombin Time 1.1 Ratio INR International 1.13 Normalized Ratio Activated 33.1 Partial Thromboplast Time Sodium Level 137 Potassium Level 3.9 Chloride Level 104 Carbon Dioxide Level 25 Anion Gap 8 Blood Urea Nitrogen 12 Creatinine 0.71 Est Glomerular > 60 Filtrat Rate mL/min Glucose Level 139 Calcium Level 8.3 L Total Bilirubin 0.5 Direct Bilirubin 0.00 Indirect Bilirubin 0.5 Aspartate Amino 17 Transf (AST/SGOT) Alanine 25 Aminotransferase (AL T/SGPT) Alkaline Phosphatase 77 Total Protein 6.8 Albumin 3.1 L Globulin 3.70 H Albumin/Globulin 0.83 Ratio White Blood Count 3.8 #L Red Blood Count 2.53 L Hemoglobin 7.9 L Hematocrit 23.7 L Mean Corpuscular 93.7 Volume Mean Corpuscular 31.2 Hemoglobin Mean Corpuscular 33.3 Hemoglobin Concent Red Cell 13.7 Distribution Width Platelet Count 115 L Mean Platelet Volume 8.6 Immature 5.800 H Granulocytes % Neutrophils % Segmented 52 Neutrophils % (Manual) Band Neutrophils % 2 (Manual) Lymphocytes % Lymphocytes % 36 (Manual) Reactive Lymphocytes 2 H % (Manual) Monocytes % Monocytes % (Manual) 4 Eosinophils % Basophils % Basophils % (Manual) 2 Blast Cells % 2.0 H (Manual) Nucleated Red Blood 0.0 Cells % Immature 0.220 H Granulocytes # Neutrophils # Neutrophils # 2.0 (Manual) Band Neutrophils # 0.0 Lymphocytes (Manual) 1.3 Lymphocytes # Reactive Lymphocytes 0.0 # Monocytes # Monocytes # (Manual) 0.1 L Eosinophils # Basophils # Basophils # (Manual) 0.0 Nucleated Red Blood Cells # Platelet Estimate DECREASED Polychromasia 1+ Anisocytosis 1+ Tear Drop Cells 1+ Bedside Glucose 198 Subjective 24 Hr Interval Summary Free Text/Dictation Reports having some shortness of breath but denies any chest pain or weakness at this time. Exam/Review of Systems Exam Vitals Vital Signs Date Temp Pulse Resp B/P (MAP) Pulse Ox O2 O2 Flow FiO2 Time Delivery Rate 03/25/19 99.0 109 18 148/81 95 Room Air 08:24 (103) Intake and Output 03/24/19 03/24/19 03/25/19 1515:00 23:00 07:00 IntakeIntake Total 760 ml 660 ml 800 ml BalanceBalance 760 ml 660 ml 800 ml Constitutional: alert, oriented Psych: no complaints Eyes: nl conjunctiva Respiratory: clear to auscultation, normal air movement Cardiovascular: regular rate and rhythm Gastrointestinal: soft, non-tender Neurological: GLASS TINTER II-XII intact, nl mental status, nl speech Skin: other (pale) Results Results 24hrs Laboratory Tests Test 03/24/19 10:51 03/24/19 12:22 03/24/19 17:31 03/24/19 21:55 Platelet Count 115 L Prothrombin Time 15.3 H Prothrombin Time 1.2 Ratio INR International 1.20 Normalized Ratio Activated 35.3 H Partial Thromboplast Time Thrombin Time 13.7 L Fibrinogen 738.0 H D-Dimer 2830.41 H D-Dimer Comment Uric Acid 3.8 Bedside Glucose 242 H 196 178 Test 03/25/19 05:08 03/25/19 05:11 03/25/19 05:12 03/25/19 08:06 Phosphorus Level 3.1 Magnesium Level 2.0 Prothrombin Time 14.6 Prothrombin Time 1.1 Ratio INR International 1.13 Normalized Ratio Activated 33.1 Partial Thromboplast Time Sodium Level 137 Potassium Level 3.9 Chloride Level 104 Carbon Dioxide Level 25 Anion Gap 8 Blood Urea Nitrogen 12 Creatinine 0.71 Est Glomerular > 60 Filtrat Rate mL/min Glucose Level 139 Calcium Level 8.3 L Total Bilirubin 0.5 Direct Bilirubin 0.00 Indirect Bilirubin 0.5 Aspartate Amino 17 Transf (AST/SGOT) Alanine 25 Aminotransferase (AL T/SGPT) Alkaline Phosphatase 77 Total Protein 6.8 Albumin 3.1 L Globulin 3.70 H Albumin/Globulin 0.83 Ratio White Blood Count 3.8 #L Red Blood Count 2.53 L Hemoglobin 7.9 L Hematocrit 23.7 L Mean Corpuscular 93.7 Volume Mean Corpuscular 31.2 Hemoglobin Mean Corpuscular 33.3 Hemoglobin Concent Red Cell 13.7 Distribution Width Platelet Count 115 L Mean Platelet Volume 8.6 Immature 5.800 H Granulocytes % Neutrophils % Segmented 52 Neutrophils % (Manual) Band Neutrophils % 2 (Manual) Lymphocytes % Lymphocytes % 36 (Manual) Reactive Lymphocytes 2 H % (Manual) Monocytes % Monocytes % (Manual) 4 Eosinophils % Basophils % Basophils % (Manual) 2 Blast Cells % 2.0 H (Manual) Nucleated Red Blood 0.0 Cells % Immature 0.220 H Granulocytes # Neutrophils # Neutrophils # 2.0 (Manual) Band Neutrophils # 0.0 Lymphocytes (Manual) 1.3 Lymphocytes # Reactive Lymphocytes 0.0 # Monocytes # Monocytes # (Manual) 0.1 L Eosinophils # Basophils # Basophils # (Manual) 0.0 Nucleated Red Blood Cells # Platelet Estimate DECREASED Polychromasia 1+ Anisocytosis 1+ Tear Drop Cells 1+ Bedside Glucose 198 Medications Medication Current Medications Lisinopril (Zestril) 20 mg DAILY PO Last administered on 03/25/19at 08:08; Admin Dose 20 MG; Start 03/23/19 at 21:00 Metoprolol Tartrate (Lopressor) 50 mg DAILY PO Last administered on 03/25/19at 08:07; Admin Dose 50 MG; Start 03/23/19 at 21:00 Insulin Glargine (Lantus) 11 units DAILY@2000 SC Last administered on 03/24/19at 21:58; Admin Dose 11 UNITS; Start 03/23/19 at 20:00 Insulin Aspart (Novolog Insulin Pen) NOVOLOG *MILD* ALGORITHM WITH MEALS BEDTIME SC Last administered on 03/25/19at 08:20; Admin Dose 2 UNIT; Start 03/23/19 at 18:00 IV Flush (NS 3 ml) 3 ml PER PROTOCOL IV ; Start 03/23/19 at 18:00 Ondansetron HCl (Zofran Inj) 4 mg Q6H PRN IV NAUSEA/VOMITING; Start 03/23/19 at 18:00 Acetaminophen (Tylenol Tab) 650 mg Q6H PRN PO .PAIN 1-3 OR TEMP Last administered on 03/24/19at 19:35; Admin Dose 650 MG; Start 03/23/19 at 18:00 Acetaminophen/ Hydrocodone Bitart ([place] (5/325)) 1 tab Q6H PRN PO .MOD PAIN 4- 6; Start 03/23/19 at 18:00 Polyethylene Glycol (Miralax) 17 gm BID PO Last administered on 03/24/19at 08:10; Admin Dose 17 GM; Start 03/23/19 at 21:00 Miscellaneous Information 1 ea NOTE XX ; Start 03/23/19 at 18:00 Glucose (Glutose) 15 gm Q15M PRN PO DECREASED GLUCOSE; Start 03/23/19 at 18:00 Glucose (Glutose) 22.5 gm Q15M PRN PO DECREASED GLUCOSE; Start 03/23/19 at 18:00 Dextrose (D50w Syringe) 25 ml Q15M PRN IV DECREASED GLUCOSE; Start 03/23/19 at 18:00 Dextrose (D50w Syringe) 50 ml Q15M PRN IV DECREASED GLUCOSE; Start 03/23/19 at 18:00 Glucagon (Glucagen) 1 mg Q15M PRN IM DECREASED GLUCOSE; Start 03/23/19 at 18:00 Glucose (Glutose) 15 gm Q15M PRN BUCCAL DECREASED GLUCOSE; Start 03/23/19 at 18:00 Sodium Chloride 1,000 ml @ 50 mls/hr Q20H IV Last administered on 03/25/19at 08 :06; Admin Dose 50 MLS/HR; Start 03/24/19 at 11:00 JAY REEVES NP Mar 25, 2019 10:46
[2019-03-25 14:17] VITALS: BP 140/88; PULSE 104; RESP 18
[2019-03-25] MEDS: ACETAMINOPHEN 325 MG TAB PO PRN (14:28)
--- NOTE | 2019-03-25 15:55 | RADRPT ---
Echocardiogram Report Patient Name: RALF DUQUEPatient ID: [id number] : 1965 (54y 2m)Study Date: 03/24/2019 10:35:26 AM Gender: Connorcession #: [id number] Tech: [place] Location: [facility] Ref.Physician: SUJEY THOMAS Height(Cm): BSA: Weight(Kg): Quality: AdequateOrder Physician: SUJEY THOMAS Account #: Procedures: Echocardiographic Report: Transthoracic echocardiogram with complete 2D, M-Mode, and doppler examination. Indications: Evaluate Left Ventricular function. Measurements: 2D/M Mode Doppler Measurement Value Normal Range Measurement Value Normal Range LVIDd 2D 5.3 [ 4.2 - 5.8 ] cm MV E Peak Mikel 1.2 [ 60.0 - 130.0 ] cm/sec LVIDs 2D 3.7 [ 2.5 - 4.0 ] cm MV A Peak Mikel 0.8 [ 100.0 - 120.0 ] cm/sec LVPWd 2D 0.9 [ 0.6 - 1.0 ] cm MV E/A 1.5 [ 0.8 - 1.5 ] ratio IVSd 2D 0.9 [ 0.6 - 1.0 ] cm MV Decel Time 141 [ 104 - 258 ] msec AoR Diam 2D 3.2 [ 2.6 - 3.4 ] cm MV E/A 1.5 [ 0.8 - 1.5 ] ratio LA Dimen 2D 3.8 [ 3.0 - 4.0 ] cm Findings: Left Ventricle: Normal left ventricular cavity size. Normal left ventricular wall thickness. Moderate global left ventricular systolic dysfunction. Ejection fraction is visually estimated at 35-40 %. Tissue Doppler/Mitral Doppler indices are consistent with pseudonormalization with mildly elevated left atrial pressure (Stage II diastolic dysfunction). Right Ventricle: Normal right ventricular size. Normal right ventricular systolic function. Left Atrium: The left atrium is normal in size. Right Atrium: The right atrium is normal in size. Mitral Valve: Mitral valve leaflets appear mildly thickened. Mild mitral annular calcification. Trace mitral regurgitation. Aortic Valve: Normal appearance of the aortic valve. No significant aortic stenosis or insufficiency. Tricuspid Valve: Normal appearance and function of the tricuspid valve with trace physiologic regurgitation. Normal right ventricular systolic pressure. Pulmonic Valve: Normal pulmonic valve appearance. Pericardium: Normal pericardium with no significant pericardial effusion. Aorta: Normal aortic root. IVC: Normal size and normal respiratory collapse consistent with normal right atrial pressure. Normal size and no respiratory collapse consistent with elevated right atrial pressure. Conclusions: Normal left ventricular cavity size. Normal left ventricular wall thickness. Moderate global left ventricular systolic dysfunction. Ejection fraction is visually estimated at 35-40 %. Tissue Doppler/Mitral Doppler indices are consistent with pseudonormalization with mildly elevated left atrial pressure (Stage II diastolic dysfunction). Normal appearance of the aortic valve. No significant aortic stenosis or insufficiency. Normal appearance and function of the tricuspid valve with trace physiologic regurgitation. Normal right ventricular systolic pressure. Mitral valve leaflets appear mildly thickened. Mild mitral annular calcification. Trace mitral regurgitation. Electronically Signed By: Hipolito Koroma 2019-03-25 15:54:35 PDT
[2019-03-25 19:57] VITALS: BP 163/87; PULSE 100; RESP 18
[2019-03-25] MEDS: INSULIN GLARGINE [LANTus] (100 UNITS/ML) SYG SC SCH (20:46)
[2019-03-26] VITALS (11 sets, daily range): BP systolic 136–156; BP diastolic 70–93; PULSE 18–108; RESP 17–18
[2019-03-26] MEDS ORDERED: hydrALAzine 20 MG INJ IV PRN (03:30)
[2019-03-26] MEDS: SOD CHLORIDE 0.9% 1,000 ML IV SCH ×2 (03:36→23:20)
[2019-03-26] MEDS: INSULIN ASPART [NOVOLOG] 3 ML PEN SC SCH ×4 (08:53→21:28)
[2019-03-26] MEDS ORDERED: LIDOCAINE 1% (MDV) 20 ML INJ ONE ×3 (09:00→09:02)
[2019-03-26] MEDS ORDERED: MIDAZOLAM 1 MG/ML 2 ML INJ ONE ×2 (09:01→09:17)
[2019-03-26] MEDS ORDERED: FENTAnyl 50 MCG/ML VIAL ONE (09:01)
[2019-03-26] MEDS: ACETAMINOPHEN 325 MG TAB PO PRN ×2 (11:48→19:35)
[2019-03-26] MEDS: METOPROLOL 50 MG TAB PO SCH (11:54)
[2019-03-26] MEDS: LISINOPRIL 20 MG TAB PO SCH (11:55)
--- NOTE | 2019-03-26 12:01 | PN ---
Date/Time of Note Date/Time of Note DATE: 03/26/19 TIME: 11:57 Assessment/Plan VTE Prophylaxis Risk score (from [facility] [place]0 risk: 3 SCD applied (from [facility]): Yes Pharmacological prophylaxis: NA/contraindicated Pharm contraindication: thrombocytopenia Lines/Catheters IV Catheter Type (from [facility]): Peripheral IV Urinary Cath still in place: No Assessment/Plan Hospital Course Assessment and plan 1. Febrile illness with pancytopenia and blast cells on manual differential. - Oncologist following -s/p bone marrow biopsy - awaiting results - Continue neutropenic precautions. - Antipyretics as needed for fever. - Monitor for infection. 2.Diabetes type 2. - HbA1c is 9.6 - Continue on insulin regimen. 3. Hypertension. - Continue antihypertensives. 4. dyspnea - etiology unknown - f/u chest imaging - add breathing tx Disposition and plan. f/u chest imaging. breathing tx added. f/u biopsy results Discussed plan of care with Dr. Wagner Result Diagram: 03/25/19 0512 03/25/19 0511 Results 24hrs Laboratory Tests Test 03/25/19 12:37 03/25/19 17:53 03/25/19 20:42 03/26/19 08:34 Bedside Glucose 224 H 150 256 H 177 Subjective 24 Hr Interval Summary Free Text/Dictation reports having some shortness of breath Exam/Review of Systems Exam Vitals Vital Signs Date Temp Pulse Resp B/P (MAP) Pulse Ox O2 O2 Flow FiO2 Time Delivery Rate 03/26/19 99.8 100 18 136/70 92 Room Air 10:48 (92) Intake and Output 03/25/19 03/25/19 03/26/19 1515:00 23:00 07:00 IntakeIntake Total 1060 ml 500 ml 650 ml BalanceBalance 1060 ml 500 ml 650 ml Exam Constitutional: alert, oriented Psych: no complaints Eyes: nl conjunctiva Respiratory: clear to auscultation, normal air movement Cardiovascular: regular rate and rhythm Gastrointestinal: soft, non-tender Neurological: MACHINE SETTER II-XII intact, nl mental status, nl speech Skin: other (pale) Results Results 24hrs Laboratory Tests Test 03/25/19 12:37 03/25/19 17:53 03/25/19 20:42 03/26/19 08:34 Bedside Glucose 224 H 150 256 H 177 Medications Medication Current Medications Lisinopril (Zestril) 20 mg DAILY PO Last administered on 03/26/19at 11:55; Admin Dose 20 MG; Start 03/23/19 at 21:00 Metoprolol Tartrate (Lopressor) 50 mg DAILY PO Last administered on 03/26/19at 11:54; Admin Dose 50 MG; Start 03/23/19 at 21:00 Insulin Aspart (Novolog Insulin Pen) NOVOLOG *MILD* ALGORITHM WITH MEALS BEDTIME SC Last administered on 03/26/19at 08:53; Admin Dose 1 UNIT; Start 03/23/19 at 18:00 IV Flush (NS 3 ml) 3 ml PER PROTOCOL IV ; Start 03/23/19 at 18:00 Ondansetron HCl (Zofran Inj) 4 mg Q6H PRN IV NAUSEA/VOMITING; Start 03/23/19 at 18:00 Acetaminophen (Tylenol Tab) 650 mg Q6H PRN PO .PAIN 1-3 OR TEMP Last administered on 03/26/19at 11:48; Admin Dose 650 MG; Start 03/23/19 at 18:00 Acetaminophen/ Hydrocodone Bitart ([place] (5/325)) 1 tab Q6H PRN PO .MOD PAIN 4- 6; Start 03/23/19 at 18:00 Polyethylene Glycol (Miralax) 17 gm BID PO Last administered on 03/25/19at 20:44; Admin Dose 17 GM; Start 03/23/19 at 21:00 Miscellaneous Information 1 ea NOTE XX ; Start 03/23/19 at 18:00 Glucose (Glutose) 15 gm Q15M PRN PO DECREASED GLUCOSE; Start 03/23/19 at 18:00 Glucose (Glutose) 22.5 gm Q15M PRN PO DECREASED GLUCOSE; Start 03/23/19 at 18:00 Dextrose (D50w Syringe) 25 ml Q15M PRN IV DECREASED GLUCOSE; Start 03/23/19 at 18:00 Dextrose (D50w Syringe) 50 ml Q15M PRN IV DECREASED GLUCOSE; Start 03/23/19 at 18:00 Glucagon (Glucagen) 1 mg Q15M PRN IM DECREASED GLUCOSE; Start 03/23/19 at 18:00 Glucose (Glutose) 15 gm Q15M PRN BUCCAL DECREASED GLUCOSE; Start 03/23/19 at 18:00 Sodium Chloride 1,000 ml @ 50 mls/hr Q20H IV Last administered on 03/26/19at 03:36; Admin Dose 50 MLS/HR; Start 03/24/19 at 11:00 Hydralazine HCl (Apresoline) 10 mg Q4H PRN IV FOR SBP>170; Start 03/26/19 at 03:30 Insulin Glargine (Lantus) 15 units DAILY@2000 SC ; Start 03/26/19 at 20:00 JAY REEVES NP Mar 26, 2019 12:01
[2019-03-26] MEDS: POLYETHYLENE GLYCOL 17 GM PACKET PO SCH ×2 (12:30→21:28)
[2019-03-26] MEDS ORDERED: ALBUTEROL/IPRATROPIUM (NEB) 3 ML AMP HHN PRN (12:30)
--- NOTE | 2019-03-26 17:58 | PN ---
Date/Time of Note Date/Time of Note DATE: 03/26/19 TIME: 17:54 Assessment/Plan VTE Prophylaxis Risk score (from [facility] [place])>0 risk: 3 SCD applied (from [facility] [place]): Yes SCD contraindicated: low risk/ambulating Pharmacological prophylaxis: other Pharm contraindication: thrombocytopenia Lines/Catheters IV Catheter Type (from [facility]): Peripheral IV Urinary Cath still in place: No Assessment/Plan Assessment/Plan Unfortunately my progress note from yesterday was not saved. However the order for the marrow was and the results are pending. 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 If so, he will need a [place] catheter placed and to be started on chemotherapy. I will check for the results of the biopsy tomorrow. The patient is comfortable and has no pain or malaise presently. Result Diagram: 03/26/19 1204 03/26/19 1204 Results 24hrs Laboratory Tests Test 03/25/19 20:42 03/26/19 08:34 03/26/19 12:04 03/26/19 12:49 Bedside Glucose 256 H 177 152 White Blood Count 3.0 #L Red Blood Count 2.27 L Hemoglobin 7.1 L Hematocrit 21.5 L Mean Corpuscular 94.7 Volume Mean Corpuscular 31.3 Hemoglobin Mean Corpuscular 33.0 Hemoglobin Concent Red Cell 13.4 Distribution Width Platelet Count 109 L Mean Platelet Volume 8.6 Immature 8.200 H Granulocytes % Neutrophils % Segmented 35 L Neutrophils % (Manual) Band Neutrophils % 2 (Manual) Lymphocytes % Lymphocytes % 46 (Manual) Monocytes % Monocytes % (Manual) 5 Eosinophils % Basophils % Myelocytes % 2 H (Manual) Blast Cells % 10.0 H (Manual) Nucleated Red Blood 0.0 Cells % Immature 0.250 H Granulocytes # Neutrophils # Neutrophils # 1.1 L (Manual) Band Neutrophils # 0.0 Lymphocytes (Manual) 1.3 Lymphocytes # Monocytes # Monocytes # (Manual) 0.1 L Eosinophils # Basophils # Myelocytes # 0.0 Nucleated Red Blood Cells # Platelet Estimate DECREASED Polychromasia 3+ Anisocytosis 1+ Microcytosis 1+ Tear Drop Cells 1+ Ovalocytes 1+ Sodium Level 135 Potassium Level 3.9 Chloride Level 104 Carbon Dioxide Level 25 Anion Gap 6 Blood Urea Nitrogen 8 Creatinine 0.63 Est Glomerular > 60 Filtrat Rate mL/min Glucose Level 153 Calcium Level 7.9 L Total Bilirubin 0.5 Direct Bilirubin 0.00 Indirect Bilirubin 0.5 Aspartate Amino 16 Transf (AST/SGOT) Alanine 29 Aminotransferase (AL T/SGPT) Alkaline Phosphatase 66 Total Protein 6.5 Albumin 2.9 L Globulin 3.60 H Albumin/Globulin 0.80 Ratio Test 03/26/19 17:30 Bedside Glucose 198 Subjective 24 Hr Interval Summary Free Text/Dictation 54 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 Bone marrow biopsy done earlier today without complication. Exam/Review of Systems Exam Vitals Vital Signs Date Temp Pulse Resp B/P (MAP) Pulse Ox O2 O2 Flow FiO2 Time Delivery Rate 03/26/19 99.0 90 18 137/75 95 Room Air 14:28 (95) Intake and Output 03/25/19 03/25/19 03/26/19 1515:00 23:00 07:00 IntakeIntake Total 1060 ml 500 ml 650 ml BalanceBalance 1060 ml 500 ml 650 ml Constitutional: alert, oriented Head: normocephalic Eyes: other (conjunctival pallor) ENMT: nl external ears & nose, other (no gum hypeertrophy) Neck: supple Respiratory: clear to auscultation Cardiovascular: regular rate and rhythm Extremities: other (bone marrow site without bleeding) Lymph: nl lymph nodes Results Results 24hrs Laboratory Tests Test 03/25/19 20:42 03/26/19 08:34 03/26/19 12:04 03/26/19 12:49 Bedside Glucose 256 H 177 152 White Blood Count 3.0 #L Red Blood Count 2.27 L Hemoglobin 7.1 L Hematocrit 21.5 L Mean Corpuscular 94.7 Volume Mean Corpuscular 31.3 Hemoglobin Mean Corpuscular 33.0 Hemoglobin Concent Red Cell 13.4 Distribution Width Platelet Count 109 L Mean Platelet Volume 8.6 Immature 8.200 H Granulocytes % Neutrophils % Segmented 35 L Neutrophils % (Manual) Band Neutrophils % 2 (Manual) Lymphocytes % Lymphocytes % 46 (Manual) Monocytes % Monocytes % (Manual) 5 Eosinophils % Basophils % Myelocytes % 2 H (Manual) Blast Cells % 10.0 H (Manual) Nucleated Red Blood 0.0 Cells % Immature 0.250 H Granulocytes # Neutrophils # Neutrophils # 1.1 L (Manual) Band Neutrophils # 0.0 Lymphocytes (Manual) 1.3 Lymphocytes # Monocytes # Monocytes # (Manual) 0.1 L Eosinophils # Basophils # Myelocytes # 0.0 Nucleated Red Blood Cells # Platelet Estimate DECREASED Polychromasia 3+ Anisocytosis 1+ Microcytosis 1+ Tear Drop Cells 1+ Ovalocytes 1+ Sodium Level 135 Potassium Level 3.9 Chloride Level 104 Carbon Dioxide Level 25 Anion Gap 6 Blood Urea Nitrogen 8 Creatinine 0.63 Est Glomerular > 60 Filtrat Rate mL/min Glucose Level 153 Calcium Level 7.9 L Total Bilirubin 0.5 Direct Bilirubin 0.00 Indirect Bilirubin 0.5 Aspartate Amino 16 Transf (AST/SGOT) Alanine 29 Aminotransferase (AL T/SGPT) Alkaline Phosphatase 66 Total Protein 6.5 Albumin 2.9 L Globulin 3.60 H Albumin/Globulin 0.80 Ratio Test 03/26/19 17:30 Bedside Glucose 198 Medications Medication Current Medications Lisinopril (Zestril) 20 mg DAILY PO Last administered on 03/26/19 11:55; Admin Dose 20 MG; Start 03/23/19 at 21:00 Metoprolol Tartrate (Lopressor) 50 mg DAILY PO Last administered on 03/26/19 11:54; Admin Dose 50 MG; Start 03/23/19 at 21:00 Insulin Aspart (Novolog Insulin Pen) NOVOLOG *MILD* ALGORITHM WITH MEALS BEDTIME SC Last administered on 03/26/19 17:33; Admin Dose 2 UNIT; Start 03/23/19 at 18:00 IV Flush (NS 3 ml) 3 ml PER PROTOCOL IV ; Start 03/23/19 at 18:00 Ondansetron HCl (Zofran Inj) 4 mg Q6H PRN IV NAUSEA/VOMITING; Start 03/23/19 at 18:00 Acetaminophen (Tylenol Tab) 650 mg Q6H PRN PO .PAIN 1-3 OR TEMP Last administered on 03/26/19at 11:48; Admin Dose 650 MG; Start 03/23/19 at 18:00 Acetaminophen/ Hydrocodone Bitart ([place] (5/325)) 1 tab Q6H PRN PO .MOD PAIN 4- 6; Start 03/23/19 at 18:00 Polyethylene Glycol (Miralax) 17 gm BID PO Last administered on 03/25/19at 20:44; Admin Dose 17 GM; Start 03/23/19 at 21:00 Miscellaneous Information 1 ea NOTE XX ; Start 03/23/19 at 18:00 Glucose (Glutose) 15 gm Q15M PRN PO DECREASED GLUCOSE; Start 03/23/19 at 18:00 Glucose (Glutose) 22.5 gm Q15M PRN PO DECREASED GLUCOSE; Start 03/23/19 at 18:00 Dextrose (D50w Syringe) 25 ml Q15M PRN IV DECREASED GLUCOSE; Start 03/23/19 at 18:00 Dextrose (D50w Syringe) 50 ml Q15M PRN IV DECREASED GLUCOSE; Start 03/23/19 at 18:00 Glucagon (Glucagen) 1 mg Q15M PRN IM DECREASED GLUCOSE; Start 03/23/19 at 18:00 Glucose (Glutose) 15 gm Q15M PRN BUCCAL DECREASED GLUCOSE; Start 03/23/19 at 18:00 Sodium Chloride 1,000 ml @ 50 mls/hr Q20H IV Last administered on 03/26/19at 03:36; Admin Dose 50 MLS/HR; Start 03/24/19 at 11:00 Hydralazine HCl (Apresoline) 10 mg Q4H PRN IV FOR SBP>170; Start 03/26/19 at 03:30 Insulin Glargine (Lantus) 15 units DAILY@2000 SC ; Start 03/26/19 at 20:00 Albuterol/ Ipratropium (Duoneb) 3 ml Q2H RESP THERAPY PRN HHN sob; Start at 12:30 BETTE MALDONADO MD Mar 26, 2019 17:58
[2019-03-26] MEDS: INSULIN GLARGINE [LANTus] (100 UNITS/ML) SYG SC SCH (21:26)
[2019-03-27 01:10] VITALS: BP 135/79; PULSE 97; RESP 17
[2019-03-27 07:51] VITALS: BP 146/81; PULSE 100; RESP 16
[2019-03-27] MEDS: INSULIN ASPART [NOVOLOG] 3 ML PEN SC SCH ×4 (08:00→20:57)
[2019-03-27] MEDS: POLYETHYLENE GLYCOL 17 GM PACKET PO SCH ×2 (08:59→22:25)
[2019-03-27] MEDS: METOPROLOL 50 MG TAB PO SCH (09:00)
[2019-03-27] MEDS: LISINOPRIL 20 MG TAB PO SCH (09:00)
--- NOTE | 2019-03-27 10:52 | PN ---
Date/Time of Note Date/Time of Note DATE: 03/27/19 TIME: 10:47 Assessment/Plan VTE Prophylaxis [place] [facility] [place]: 3 [place]CD [place] [facility] [place] Yes Pharmacological prophylaxis: NA/contraindicated Pharm contraindication: other (anemia) Lines/Catheters [facility] (from [facility] Peripheral IV Urinary Cath still in place: No Assessment/Plan Hospital Course Assessment and plan 1. Febrile illness with pancytopenia and blast cells on manual differential. - Oncologist following -s/p bone marrow biopsy - awaiting results - Continue neutropenic precautions. - Antipyretics as needed for fever. - Monitor for infection. - will get ID consult -started on abx - f/u cultures 2.Diabetes type 2. - HbA1c is 9.6 - Continue on insulin regimen. 3. Hypertension. - Continue antihypertensives. 4. dyspnea - CXR with pulmonary congestion - start on lasix - breathing tx 5. CHF - manifold builder consult 6. 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 f/u biopsy results. cardiology and ID consult to follow. start on diuretic and abx. f/u H&H. Transfuse blood products prn. monitor inhouse Discussed plan of care with Dr. Wagner Result Diagram: 03/27/19 0452 03/27/19 0452 Results 24hrs Laboratory Tests Test 03/26/19 12:04 03/26/19 12:49 03/26/19 16:22 03/26/19 17:30 White Blood Count 3.0 #L Red Blood Count 2.27 L Hemoglobin 7.1 L Hematocrit 21.5 L Mean Corpuscular 94.7 Volume Mean Corpuscular 31.3 Hemoglobin Mean Corpuscular 33.0 Hemoglobin Concent Red Cell 13.4 Distribution Width Platelet Count 109 L Mean Platelet Volume 8.6 Immature 8.200 H Granulocytes % Neutrophils % Segmented 35 L Neutrophils % (Manual) Band Neutrophils % 2 (Manual) Lymphocytes % Lymphocytes % 46 (Manual) Monocytes % Monocytes % (Manual) 5 Eosinophils % Basophils % Myelocytes % 2 H (Manual) Blast Cells % 10.0 H (Manual) Nucleated Red Blood 0.0 Cells % Immature 0.250 H Granulocytes # Neutrophils # Neutrophils # 1.1 L (Manual) Band Neutrophils # 0.0 Lymphocytes (Manual) 1.3 Lymphocytes # Monocytes # Monocytes # (Manual) 0.1 L Eosinophils # Basophils # Myelocytes # 0.0 Nucleated Red Blood Cells # Platelet Estimate DECREASED Polychromasia 3+ Anisocytosis 1+ Microcytosis 1+ Tear Drop Cells 1+ Ovalocytes 1+ Sodium Level 135 Potassium Level 3.9 Chloride Level 104 Carbon Dioxide Level 25 Anion Gap 6 Blood Urea Nitrogen 8 Creatinine 0.63 Est Glomerular > 60 Filtrat Rate mL/min Glucose Level 153 Calcium Level 7.9 L Total Bilirubin 0.5 Direct Bilirubin 0.00 Indirect Bilirubin 0.5 Aspartate Amino 16 Transf (AST/SGOT) Alanine 29 Aminotransferase (AL T/SGPT) Alkaline Phosphatase 66 Total Protein 6.5 Albumin 2.9 L Globulin 3.60 H Albumin/Globulin 0.80 Ratio Bedside Glucose 152 198 Stool Occult Blood NEGATIVE Test 03/26/19 21:22 03/27/19 02:07 03/27/19 04:52 03/27/19 08:34 Bedside Glucose 219 129 120 White Blood Count 3.0 L Red Blood Count 2.21 L Hemoglobin 6.9 *L Hematocrit 21.2 L Mean Corpuscular 95.9 Volume Mean Corpuscular 31.2 Hemoglobin Mean Corpuscular 32.5 Hemoglobin Concent Red Cell 13.8 Distribution Width Platelet Count 106 L Mean Platelet Volume 9.0 Immature 7.700 H Granulocytes % Neutrophils % Segmented 31 L Neutrophils % (Manual) Lymphocytes % Lymphocytes % 52 H (Manual) Monocytes % Monocytes % (Manual) 5 Eosinophils % Eosinophils % 1 (Manual) Basophils % Myelocytes % 2 H (Manual) Blast Cells % 9.0 H (Manual) Nucleated Red Blood 0.0 Cells % Immature 0.230 H Granulocytes # Neutrophils # Lymphocytes (Manual) 1.5 Lymphocytes # Monocytes # Monocytes # (Manual) 0.1 L Eosinophils # Basophils # Myelocytes # 0.0 Nucleated Red Blood Cells # Platelet Estimate DECREASED Giant Platelets 2 H Sodium Level 139 Potassium Level 4.1 Chloride Level 102 Carbon Dioxide Level 26 Anion Gap 11 Blood Urea Nitrogen 9 Creatinine 0.64 Est Glomerular > 60 Filtrat Rate mL/min Glucose Level 115 Calcium Level 7.9 L Subjective 24 Hr Interval Summary Free Text/Dictation reports still having some shortness of breath, more notable on exertion Exam/Review of Systems Exam Vitals Vital Signs Date Temp Pulse Resp B/P (MAP) Pulse Ox O2 O2 Flow FiO2 Time Delivery Rate 03/27/19 99.7 100 16 146/81 96 07:51 (102) 03/26/19 Room Air 14:28 Intake and Output 03/26/19 03/26/19 03/27/19 1515:00 23:00 07:00 IntakeIntake Total 240 ml 1350 ml 850 ml OutputOutput Total 300 ml BalanceBalance -60 ml 1350 ml 850 ml Exam Constitutional: alert, oriented Psych: no complaints Eyes: nl conjunctiva Respiratory: no obvious wheezing/rhonchi Cardiovascular: regular rate and rhythm Gastrointestinal: soft, non-tender 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, nl mental status, nl speech Skin: other (pale) Results Results 24hrs Laboratory Tests Test 03/26/19 12:04 03/26/19 12:49 03/26/19 16:22 03/26/19 17:30 White Blood Count 3.0 #L Red Blood Count 2.27 L Hemoglobin 7.1 L Hematocrit 21.5 L Mean Corpuscular 94.7 Volume Mean Corpuscular 31.3 Hemoglobin Mean Corpuscular 33.0 Hemoglobin Concent Red Cell 13.4 Distribution Width Platelet Count 109 L Mean Platelet Volume 8.6 Immature 8.200 H Granulocytes % Neutrophils % Segmented 35 L Neutrophils % (Manual) Band Neutrophils % 2 (Manual) Lymphocytes % Lymphocytes % 46 (Manual) Monocytes % Monocytes % (Manual) 5 Eosinophils % Basophils % Myelocytes % 2 H (Manual) Blast Cells % 10.0 H (Manual) Nucleated Red Blood 0.0 Cells % Immature 0.250 H Granulocytes # Neutrophils # Neutrophils # 1.1 L (Manual) Band Neutrophils # 0.0 Lymphocytes (Manual) 1.3 Lymphocytes # Monocytes # Monocytes # (Manual) 0.1 L Eosinophils # Basophils # Myelocytes # 0.0 Nucleated Red Blood Cells # Platelet Estimate DECREASED Polychromasia 3+ Anisocytosis 1+ Microcytosis 1+ Tear Drop Cells 1+ Ovalocytes 1+ Sodium Level 135 Potassium Level 3.9 Chloride Level 104 Carbon Dioxide Level 25 Anion Gap 6 Blood Urea Nitrogen 8 Creatinine 0.63 Est Glomerular > 60 Filtrat Rate mL/min Glucose Level 153 Calcium Level 7.9 L Total Bilirubin 0.5 Direct Bilirubin 0.00 Indirect Bilirubin 0.5 Aspartate Amino 16 Transf (AST/SGOT) Alanine 29 Aminotransferase (AL T/SGPT) Alkaline Phosphatase 66 Total Protein 6.5 Albumin 2.9 L Globulin 3.60 H Albumin/Globulin 0.80 Ratio Bedside Glucose 152 198 Stool Occult Blood NEGATIVE Test 03/26/19 21:22 03/27/19 02:07 03/27/19 04:52 03/27/19 08:34 Bedside Glucose 219 129 120 White Blood Count 3.0 L Red Blood Count 2.21 L Hemoglobin 6.9 *L Hematocrit 21.2 L Mean Corpuscular 95.9 Volume Mean Corpuscular 31.2 Hemoglobin Mean Corpuscular 32.5 Hemoglobin Concent Red Cell 13.8 Distribution Width Platelet Count 106 L Mean Platelet Volume 9.0 Immature 7.700 H Granulocytes % Neutrophils % Segmented 31 L Neutrophils % (Manual) Lymphocytes % Lymphocytes % 52 H (Manual) Monocytes % Monocytes % (Manual) 5 Eosinophils % Eosinophils % 1 (Manual) Basophils % Myelocytes % 2 H (Manual) Blast Cells % 9.0 H (Manual) Nucleated Red Blood 0.0 Cells % Immature 0.230 H Granulocytes # Neutrophils # Lymphocytes (Manual) 1.5 Lymphocytes # Monocytes # Monocytes # (Manual) 0.1 L Eosinophils # Basophils # Myelocytes # 0.0 Nucleated Red Blood Cells # Platelet Estimate DECREASED Giant Platelets 2 H Sodium Level 139 Potassium Level 4.1 Chloride Level 102 Carbon Dioxide Level 26 Anion Gap 11 Blood Urea Nitrogen 9 Creatinine 0.64 Est Glomerular > 60 Filtrat Rate mL/min Glucose Level 115 Calcium Level 7.9 L Medications Medication Current Medications Lisinopril (Zestril) 20 mg DAILY PO Last administered on 03/27/19at 09:00; Admin Dose 20 MG; Start 03/23/19 at 21:00 Metoprolol Tartrate (Lopressor) 50 mg DAILY PO Last administered on 03/27/19at 09:00; Admin Dose 50 MG; Start 03/23/19 at 21:00 Insulin Aspart (Novolog Insulin Pen) NOVOLOG *MILD* ALGORITHM WITH MEALS BEDTIME SC Last administered on 03/26/19at 21:28; Admin Dose 1 UNIT; Start 03/23/19 at 18:00 IV Flush (NS 3 ml) 3 ml PER PROTOCOL IV ; Start 03/23/19 at 18:00 Ondansetron HCl (Zofran Inj) 4 mg Q6H PRN IV NAUSEA/VOMITING; Start 03/23/19 at 18:00 Acetaminophen (Tylenol Tab) 650 mg Q6H PRN PO .PAIN 1-3 OR TEMP Last administered on 03/26/19at 19:35; Admin Dose 650 MG; Start 03/23/19 at 18:00 Acetaminophen/ Hydrocodone Bitart ([place] (5/325)) 1 tab Q6H PRN PO .MOD PAIN 4- 6; Start 03/23/19 at 18:00 Polyethylene Glycol (Miralax) 17 gm BID PO Last administered on 03/27/19at 08:59; Admin Dose 17 GM; Start 03/23/19 at 21:00 Miscellaneous Information 1 ea NOTE XX ; Start 03/23/19 at 18:00 Glucose (Glutose) 15 gm Q15M PRN PO DECREASED GLUCOSE; Start 03/23/19 at 18:00 Glucose (Glutose) 22.5 gm Q15M PRN PO DECREASED GLUCOSE; Start 03/23/19 at 18:00 Dextrose (D50w Syringe) 25 ml Q15M PRN IV DECREASED GLUCOSE; Start 03/23/19 at 18:00 Dextrose (D50w Syringe) 50 ml Q15M PRN IV DECREASED GLUCOSE; Start 03/23/19 at 18:00 Glucagon (Glucagen) 1 mg Q15M PRN IM DECREASED GLUCOSE; Start 03/23/19 at 18:00 Glucose (Glutose) 15 gm Q15M PRN BUCCAL DECREASED GLUCOSE; Start 03/23/19 at 18:00 Sodium Chloride 1,000 ml @ 50 mls/hr Q20H IV Last administered on 03/26/19at 23:20; Admin Dose 50 MLS/HR; Start 03/24/19 at 11:00 Hydralazine HCl (Apresoline) 10 mg Q4H PRN IV FOR SBP>170; Start 03/26/19 at 03:30 Insulin Glargine (Lantus) 15 units DAILY@2000 SC Last administered on 03/26/19at 21:26; Admin Dose 15 UNITS; Start 03/26/19 at 20:00 Albuterol/ Ipratropium (Duoneb) 3 ml Q2H RESP THERAPY PRN HHN sob; Start 03/26/19 at 12:30 Cefepime HCl 50 ml @ 100 mls/hr Q8 IVPB ; Start 03/27/19 at 14:00; Status JAY OROURKE NP Mar 27, 2019 10:52
[2019-03-27] MEDS: FUROSEMIDE 40 MG INJ IV SCH (12:47)
[2019-03-27] MEDS: CEFEPIME 2GM/50 ML (PMX) 50 ML IVPB SCH ×2 (14:53→22:25)
[2019-03-27 15:05] VITALS: BP 131/75; PULSE 100; RESP 16
--- NOTE | 2019-03-27 15:39 | CONS ---
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 Consultation Date/Type/Reason Admit Date/Time Type of Consult Cardiology Reason for Consultation Shortness of breath Date/Time of Note DATE: 03/27/19 TIME: 15:34 Hx of Present Illness This is a 54-year-old male who presents with progressive worsening shortness of breath and fatigue over the past month. Symptoms are worse with exertion and improved at rest. He denies exertional chest pain, denies dizziness or lightheadedness. 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 He does get occasional chills. He is currently undergoing work-up for leukemia. 12 point review of systems was performed with all pertinent positives and neg atives mentioned above and all else is negative Past Medical History Medical History: diabetes, high cholesterol, hypertension Home Meds Active Scripts Ibuprofen* (Motrin*) 800 Mg Tab, 800 MG PO Q6H PRN for PAIN AND OR ELEVATED TEMP, #30 TAB Prov:CRISPIN JUSTICE MD 03/22/19 Reported Medications Metoprolol Tartrate* (Lopressor*) 50 Mg Tab, 50 MG PO DAILY, #60 TAB 03/23/19 Lisinopril* (Lisinopril*) 20 Mg Tablet, 20 MG PO DAILY, #30 TAB 03/23/19 Azithromycin* (Azithromycin*) 500 Mg Tablet, 500 MG PO DAILY, TAB START DATE 03/21/19 03/23/19 Acetaminophen* (Acetaminophen*) 325 Mg Tablet, 325 MG PO QID PRN for PAIN AND OR ELEVATED TEMP, #30 TAB 03/23/19 Ondansetron Hcl* (Zofran*) 4 Mg Tab, 4 MG PO TID PRN for NAUSEA AND OR VOMITING, TAB 03/23/19 Metformin Hcl* (Metformin Hcl*) 500 Mg Tablet, 500 MG PO WITH BREAKFAST DINNE, #60 TAB 03/23/19 Discontinued Scripts Albuterol Sulfate* (Ventolin HFA*) 18 Gm Hfa.aer.ad, 2 PUFF INHALATION Q4H, #1 INHALER Prov:CRISPIN JUSTICE MD 03/22/19 Medications Current Medications Lisinopril (Zestril) 20 mg DAILY PO Last administered on 03/27/19at 09:00; Admin Dose 20 MG; Start 03/23/19 at 21:00 Metoprolol Tartrate (Lopressor) 50 mg DAILY PO Last administered on 03/27/19at 09:00; Admin Dose 50 MG; Start 03/23/19 at 21:00 Insulin Aspart (Novolog Insulin Pen) NOVOLOG *MILD* ALGORITHM WITH MEALS BEDTIME SC Last administered on 03/27/19at 12:50; Admin Dose 1 UNIT; Start 03/23/19 at 18:00 IV Flush (NS 3 ml) 3 ml PER PROTOCOL IV ; Start 03/23/19 at 18:00 Ondansetron HCl (Zofran Inj) 4 mg Q6H PRN IV NAUSEA/VOMITING; Start 03/23/19 at 18:00 Acetaminophen (Tylenol Tab) 650 mg Q6H PRN PO .PAIN 1-3 OR TEMP Last administered on 03/26/19at 19:35; Admin Dose 650 MG; Start 03/23/19 at 18:00 Acetaminophen/ Hydrocodone Bitart ([place] (5/325)) 1 tab Q6H PRN PO .MOD PAIN 4- 6; Start 03/23/19 at 18:00 Polyethylene Glycol (Miralax) 17 gm BID PO Last administered on 03/27/19at 08:59; Admin Dose 17 GM; Start 03/23/19 at 21:00 Miscellaneous Information 1 ea NOTE XX ; Start 03/23/19 at 18:00 Glucose (Glutose) 15 gm Q15M PRN PO DECREASED GLUCOSE; Start 03/23/19 at 18:00 Glucose (Glutose) 22.5 gm Q15M PRN PO DECREASED GLUCOSE; Start 03/23/19 at 18:00 Dextrose (D50w Syringe) 25 ml Q15M PRN IV DECREASED GLUCOSE; Start 03/23/19 at 18:00 Dextrose (D50w Syringe) 50 ml Q15M PRN IV DECREASED GLUCOSE; Start 03/23/19 at 18:00 Glucagon (Glucagen) 1 mg Q15M PRN IM DECREASED GLUCOSE; Start 03/23/19 at 18:00 Glucose (Glutose) 15 gm Q15M PRN BUCCAL DECREASED GLUCOSE; Start 03/23/19 at 18:00 Hydralazine HCl (Apresoline) 10 mg Q4H PRN IV FOR SBP>170; Start 03/26/19 at 03:30 Insulin Glargine (Lantus) 15 units DAILY@2000 SC Last administered on 03/26/19at 21:26; Admin Dose 15 UNITS; Start 03/26/19 at 20:00 Albuterol/ Ipratropium (Duoneb) 3 ml Q2H RESP THERAPY PRN HHN sob; Start 03/26/19 at 12:30 Cefepime HCl 50 ml @ 100 mls/hr Q8 IVPB Last administered on 03/27/19at 14:53; Admin Dose 100 MLS/HR; Start 03/27/19 at 14:00 Furosemide (Lasix) 40 mg DAILY@0600 IV Last administered on 03/27/19at 12:47; Admin Dose 40 MG; Start 03/27/19 at 11:00 Allergies: Coded Allergies: No Known Allergy (Unverified , 03/23/19) Past Surgical History Past Surgical Hx: no surgical history Family History Significant Family History: no pertinent family hx Social History Alcohol Use: occasionally Smoking Status: Never smoker Drug Use: none 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 Exam/Review of Systems Vital Signs Vitals Vital Signs Date Temp Pulse Resp B/P (MAP) Pulse Ox O2 O2 Flow FiO2 Time Delivery Rate 03/27/19 100.2 100 16 131/75 95 15:05 (93) 03/26/19 Room Air 14:28 Intake and Output 03/26/19 03/26/19 03/27/19 1515:00 23:00 07:00 IntakeIntake Total 240 ml 1350 ml 850 ml OutputOutput Total 300 ml BalanceBalance -60 ml 1350 ml 850 ml Exam Constitutional: alert, oriented (No apparent distress) Head: normocephalic Respiratory: other (Coarse breath sounds bilaterally, no wheezing) Cardiovascular: regular rate and rhythm, other (S1-S2 heard) Gastrointestinal: soft, non-tender, bowel sounds Extremities: edema (Trace) Labs Result Diagram: 03/27/19 1031 03/27/19 0452 Results 24hrs Laboratory Tests Test 03/26/19 16:22 03/26/19 17:30 03/26/19 21:22 03/27/19 02:07 Stool Occult Blood NEGATIVE Bedside Glucose 198 219 129 Test 03/27/19 04:52 03/27/19 08:34 03/27/19 10:31 03/27/19 12:45 White Blood Count 3.0 L 2.9 L Red Blood Count 2.21 L 2.29 L Hemoglobin 6.9 *L 7.1 L Hematocrit 21.2 L 21.6 L Mean Corpuscular 95.9 94.3 Volume Mean Corpuscular 31.2 31.0 Hemoglobin Mean Corpuscular 32.5 32.9 Hemoglobin Concent Red Cell 13.8 13.7 Distribution Width Platelet Count 106 L 105 L Mean Platelet Volume 9.0 8.9 Immature 7.700 H 7.400 H Granulocytes % Neutrophils % Segmented 31 L 40 Neutrophils % (Manual) Lymphocytes % Lymphocytes % 52 H 44 (Manual) Monocytes % Monocytes % (Manual) 5 3 Eosinophils % Eosinophils % 1 (Manual) Basophils % Myelocytes % 2 H 2 H (Manual) Blast Cells % 9.0 H 7.0 H (Manual) Nucleated Red Blood 0.0 0.0 Cells % Immature 0.230 H 0.210 H Granulocytes # Neutrophils # Lymphocytes (Manual) 1.5 1.2 Lymphocytes # Monocytes # Monocytes # (Manual) 0.1 L 0.0 L Eosinophils # Basophils # Myelocytes # 0.0 0.0 Nucleated Red Blood Cells # Platelet Estimate DECREASED DECREASED Giant Platelets 2 H Sodium Level 139 Potassium Level 4.1 Chloride Level 102 Carbon Dioxide Level 26 Anion Gap 11 Blood Urea Nitrogen 9 Creatinine 0.64 Est Glomerular > 60 Filtrat Rate mL/min Glucose Level 115 Calcium Level 7.9 L Bedside Glucose 120 158 Reactive Lymphocytes 2 H % (Manual) Basophils % (Manual) 1 Metamyelocytes % 1 H (manual) Reactive Lymphocytes 0.0 # Basophils # (Manual) 0.0 Metamyelocytes # 0.0 Polychromasia 1+ Anisocytosis 1+ Microcytosis 1+ Lactic Acid Level 0.9 Medications Medications Current Medications Lisinopril (Zestril) 20 mg DAILY PO Last administered on 03/27/19at 09:00; Admin Dose 20 MG; Start 03/23/19 at 21:00 Metoprolol Tartrate (Lopressor) 50 mg DAILY PO Last administered on 03/27/19 09:00; Admin Dose 50 MG; Start 03/23/19 at 21:00 Insulin Aspart (Novolog Insulin Pen) NOVOLOG *MILD* ALGORITHM WITH MEALS BEDTIME SC Last administered on 03/27/19at 12:50; Admin Dose 1 UNIT; Start 03/23/19 at 18:00 IV Flush (NS 3 ml) 3 ml PER PROTOCOL IV ; Start 03/23/19 at 18:00 Ondansetron HCl (Zofran Inj) 4 mg Q6H PRN IV NAUSEA/VOMITING; Start 03/23/19 at 18:00 Acetaminophen (Tylenol Tab) 650 mg Q6H PRN PO .PAIN 1-3 OR TEMP Last administered on 03/26/19at 19:35; Admin Dose 650 MG; Start 03/23/19 at 18:00 Acetaminophen/ Hydrocodone Bitart ([place] (5/325)) 1 tab Q6H PRN PO .MOD PAIN 4- 6; Start 03/23/19 at 18:00 Polyethylene Glycol (Miralax) 17 gm BID PO Last administered on 03/27/19at 08:59; Admin Dose 17 GM; Start 03/23/19 at 21:00 Miscellaneous Information 1 ea NOTE XX ; Start 03/23/19 at 18:00 Glucose (Glutose) 15 gm Q15M PRN PO DECREASED GLUCOSE; Start 03/23/19 at 18:00 Glucose (Glutose) 22.5 gm Q15M PRN PO DECREASED GLUCOSE; Start 03/23/19 at 18:00 Dextrose (D50w Syringe) 25 ml Q15M PRN IV DECREASED GLUCOSE; Start 03/23/19 at 18:00 Dextrose (D50w Syringe) 50 ml Q15M PRN IV DECREASED GLUCOSE; Start 03/23/19 at 18:00 Glucagon (Glucagen) 1 mg Q15M PRN IM DECREASED GLUCOSE; Start 03/23/19 at 18:00 Glucose (Glutose) 15 gm Q15M PRN BUCCAL DECREASED GLUCOSE; Start 03/23/19 at 18:00 Hydralazine HCl (Apresoline) 10 mg Q4H PRN IV FOR SBP>170; Start 03/26/19 at 03:30 Insulin Glargine (Lantus) 15 units DAILY@2000 SC Last administered on 03/26/19at 21:26; Admin Dose 15 UNITS; Start 03/26/19 at 20:00 Albuterol/ Ipratropium (Duoneb) 3 ml Q2H RESP THERAPY PRN HHN sob; Start 03/26/19 at 12:30 Cefepime HCl 50 ml @ 100 mls/hr Q8 IVPB Last administered on 03/27/19at 14:53; Admin Dose 100 MLS/HR; Start 03/27/19 at 14:00 Furosemide (Lasix) 40 mg DAILY@0600 IV Last administered on 03/27/19at 12:47; Admin Dose 40 MG; Start 03/27/19 at 11:00 Jun Ayala DO Mar 27, 2019 15:39
--- NOTE | 2019-03-27 17:10 | PN ---
Date/Time of Note Date/Time of Note DATE: 03/27/19 TIME: 17:03 Assessment/Plan VTE Prophylaxis Risk score (from [facility])>0 risk: 4 SCD applied (from [facility]): Yes Pharmacological prophylaxis: NA/contraindicated (impending pancytopenia) Pharm contraindication: other (thrombocytopenia impending) Lines/Catheters IV [facility]ter Type (from [facility]): [place] Urinary Cath still in place: No Assessment/Plan Assessment/Plan Path shows acute myelogenous leukemia. Full markers are pending to establish the subtype. He will need a double lumen Worthington catheter placed and to start chemotherapy, likely 7+3 regimen. I would also transfer to Oncology floor when convenient. I spoke to pt and to . He will be in the hospital for about a month after chemotherapy starts even if all goes smoothly. I also explained that he will need antibiotics and blood products on an ongoing basis. He recognizes that his prognosis is dismal without treatment and is willing to proceed. I will talk to hospitalist about getting the Worthington placed. Result Diagram: 03/27/19 1031 03/27/19 0452 Results 24hrs Laboratory Tests Test 03/26/19 17:30 03/26/19 21:22 03/27/19 02:07 03/27/19 04:52 Bedside Glucose 198 219 129 White Blood Count 3.0 L Red Blood Count 2.21 L Hemoglobin 6.9 *L Hematocrit 21.2 L Mean Corpuscular 95.9 Volume Mean Corpuscular 31.2 Hemoglobin Mean Corpuscular 32.5 Hemoglobin Concent Red Cell 13.8 Distribution Width Platelet Count 106 L Mean Platelet Volume 9.0 Immature 7.700 H Granulocytes % Neutrophils % Segmented 31 L Neutrophils % (Manual) Lymphocytes % Lymphocytes % 52 H (Manual) Monocytes % Monocytes % (Manual) 5 Eosinophils % Eosinophils % 1 (Manual) Basophils % Myelocytes % 2 H (Manual) Blast Cells % 9.0 H (Manual) Nucleated Red Blood 0.0 Cells % Immature 0.230 H Granulocytes # Neutrophils # Lymphocytes (Manual) 1.5 Lymphocytes # Monocytes # Monocytes # (Manual) 0.1 L Eosinophils # Basophils # Myelocytes # 0.0 Nucleated Red Blood Cells # Platelet Estimate DECREASED Giant Platelets 2 H Sodium Level 139 Potassium Level 4.1 Chloride Level 102 Carbon Dioxide Level 26 Anion Gap 11 Blood Urea Nitrogen 9 Creatinine 0.64 Est Glomerular > 60 Filtrat Rate mL/min Glucose Level 115 Calcium Level 7.9 L Test 03/27/19 08:34 03/27/19 10:31 03/27/19 12:45 Bedside Glucose 120 158 White Blood Count 2.9 L Red Blood Count 2.29 L Hemoglobin 7.1 L Hematocrit 21.6 L Mean Corpuscular 94.3 Volume Mean Corpuscular 31.0 Hemoglobin Mean Corpuscular 32.9 Hemoglobin Concent Red Cell 13.7 Distribution Width Platelet Count 105 L Mean Platelet Volume 8.9 Immature 7.400 H Granulocytes % Neutrophils % Segmented 40 Neutrophils % (Manual) Lymphocytes % Lymphocytes % 44 (Manual) Reactive Lymphocytes 2 H % (Manual) Monocytes % Monocytes % (Manual) 3 Eosinophils % Basophils % Basophils % (Manual) 1 Metamyelocytes % 1 H (manual) Myelocytes % 2 H (Manual) Blast Cells % 7.0 H (Manual) Nucleated Red Blood 0.0 Cells % Immature 0.210 H Granulocytes # Neutrophils # Lymphocytes (Manual) 1.2 Lymphocytes # Reactive Lymphocytes 0.0 # Monocytes # Monocytes # (Manual) 0.0 L Eosinophils # Basophils # Basophils # (Manual) 0.0 Metamyelocytes # 0.0 Myelocytes # 0.0 Nucleated Red Blood Cells # Platelet Estimate DECREASED Polychromasia 1+ Anisocytosis 1+ Microcytosis 1+ Lactic Acid Level 0.9 Subjective 24 Hr Interval Summary Free Text/Dictation Pt is stable clinically and is resting in bed with sitting next to him. Eyes: other (conjunctival pallor) Respiratory: no complaints Exam/Review of Systems Exam Vitals Vital Signs Date Temp Pulse Resp B/P (MAP) Pulse Ox O2 O2 Flow FiO2 Time Delivery Rate 03/27/19 100.2 100 16 131/75 95 15:05 (93) 03/26/19 Room Air 14:28 Intake and Output 03/26/19 03/26/19 03/27/19 1515:00 23:00 07:00 IntakeIntake Total 240 ml 1350 ml 850 ml OutputOutput Total 300 ml BalanceBalance -60 ml 1350 ml 850 ml Constitutional: alert, oriented, well developed Head: normocephalic Eyes: other (conjunctival pallor) Neck: supple Respiratory: clear to auscultation Cardiovascular: regular rate and rhythm Gastrointestinal: soft, non-tender Musculoskeletal: nl extremities to inspection Neurological: TDP DISPLAYS ANALYST II-XII intact, nl mental status, nl speech Skin: rash or lesions (none) Results Results 24hrs Laboratory Tests Test 03/26/19 17:30 03/26/19 21:22 03/27/19 02:07 03/27/19 04:52 Bedside Glucose 198 219 129 White Blood Count 3.0 L Red Blood Count 2.21 L Hemoglobin 6.9 *L Hematocrit 21.2 L Mean Corpuscular 95.9 Volume Mean Corpuscular 31.2 Hemoglobin Mean Corpuscular 32.5 Hemoglobin Concent Red Cell 13.8 Distribution Width Platelet Count 106 L Mean Platelet Volume 9.0 Immature 7.700 H Granulocytes % Neutrophils % Segmented 31 L Neutrophils % (Manual) Lymphocytes % Lymphocytes % 52 H (Manual) Monocytes % Monocytes % (Manual) 5 Eosinophils % Eosinophils % 1 (Manual) Basophils % Myelocytes % 2 H (Manual) Blast Cells % 9.0 H (Manual) Nucleated Red Blood 0.0 Cells % Immature 0.230 H Granulocytes # Neutrophils # Lymphocytes (Manual) 1.5 Lymphocytes # Monocytes # Monocytes # (Manual) 0.1 L Eosinophils # Basophils # Myelocytes # 0.0 Nucleated Red Blood Cells # Platelet Estimate DECREASED Giant Platelets 2 H Sodium Level 139 Potassium Level 4.1 Chloride Level 102 Carbon Dioxide Level 26 Anion Gap 11 Blood Urea Nitrogen 9 Creatinine 0.64 Est Glomerular > 60 Filtrat Rate mL/min Glucose Level 115 Calcium Level 7.9 L Test 03/27/19 08:34 03/27/19 10:31 03/27/19 12:45 Bedside Glucose 120 158 White Blood Count 2.9 L Red Blood Count 2.29 L Hemoglobin 7.1 L Hematocrit 21.6 L Mean Corpuscular 94.3 Volume Mean Corpuscular 31.0 Hemoglobin Mean Corpuscular 32.9 Hemoglobin Concent Red Cell 13.7 Distribution Width Platelet Count 105 L Mean Platelet Volume 8.9 Immature 7.400 H Granulocytes % Neutrophils % Segmented 40 Neutrophils % (Manual) Lymphocytes % Lymphocytes % 44 (Manual) Reactive Lymphocytes 2 H % (Manual) Monocytes % Monocytes % (Manual) 3 Eosinophils % Basophils % Basophils % (Manual) 1 Metamyelocytes % 1 H (manual) Myelocytes % 2 H (Manual) Blast Cells % 7.0 H (Manual) Nucleated Red Blood 0.0 Cells % Immature 0.210 H Granulocytes # Neutrophils # Lymphocytes (Manual) 1.2 Lymphocytes # Reactive Lymphocytes 0.0 # Monocytes # Monocytes # (Manual) 0.0 L Eosinophils # Basophils # Basophils # (Manual) 0.0 Metamyelocytes # 0.0 Myelocytes # 0.0 Nucleated Red Blood Cells # Platelet Estimate DECREASED Polychromasia 1+ Anisocytosis 1+ Microcytosis 1+ Lactic Acid Level 0.9 Medications Medication Current Medications Insulin Aspart (Novolog Insulin Pen) NOVOLOG *MILD* ALGORITHM WITH MEALS BEDTIME SC Last administered on 03/27/19at 12:50; Admin Dose 1 UNIT; Start 03/23/19 at 18:00 IV Flush (NS 3 ml) 3 ml PER PROTOCOL IV ; Start 03/23/19 at 18:00 Ondansetron HCl (Zofran Inj) 4 mg Q6H PRN IV NAUSEA/VOMITING; Start 03/23/19 at 18:00 Acetaminophen (Tylenol Tab) 650 mg Q6H PRN PO .PAIN 1-3 OR TEMP Last administered on 03/26/19at 19:35; Admin Dose 650 MG; Start 03/23/19 at 18:00 Acetaminophen/ Hydrocodone Bitart ([place] (5/325)) 1 tab Q6H PRN PO .MOD PAIN 4- 6; Start 03/23/19 at 18:00 Polyethylene Glycol (Miralax) 17 gm BID PO Last administered on 03/27/19at 08:59; Admin Dose 17 GM; Start 03/23/19 at 21:00 Miscellaneous Information 1 ea NOTE XX ; Start 03/23/19 at 18:00 Glucose (Glutose) 15 gm Q15M PRN PO DECREASED GLUCOSE; Start 03/23/19 at 18:00 Glucose (Glutose) 22.5 gm Q15M PRN PO DECREASED GLUCOSE; Start 03/23/19 at 18:00 Dextrose (D50w Syringe) 25 ml Q15M PRN IV DECREASED GLUCOSE; Start 03/23/19 at 18:00 Dextrose (D50w Syringe) 50 ml Q15M PRN IV DECREASED GLUCOSE; Start 03/23/19 at 18:00 Glucagon (Glucagen) 1 mg Q15M PRN IM DECREASED GLUCOSE; Start 03/23/19 at 18:00 Glucose (Glutose) 15 gm Q15M PRN BUCCAL DECREASED GLUCOSE; Start 03/23/19 at 18:00 Hydralazine HCl (Apresoline) 10 mg Q4H PRN IV FOR SBP>170; Start 03/26/19 at 03:30 Insulin Glargine (Lantus) 15 units DAILY@2000 SC Last administered on 03/26/19at 21:26; Admin Dose 15 UNITS; Start 03/26/19 at 20:00 Albuterol/ Ipratropium (Duoneb) 3 ml Q2H RESP THERAPY PRN HHN sob; Start 03/26/19 at 12:30 Cefepime HCl 50 ml @ 100 mls/hr Q8 IVPB Last administered on 03/27/19at 14:53; Admin Dose 100 MLS/HR; Start 03/27/19 at 14:00 Furosemide (Lasix) 40 mg DAILY@0600 IV Last administered on 03/27/19at 12:47; Admin Dose 40 MG; Start 03/27/19 at 11:00 Lisinopril (Zestril) 10 mg BID PO ; Start 03/28/19 at 09:00 Carvedilol (Coreg) 6.25 mg BID PO ; Start 03/27/19 at 21:00 BETTE MALDONADO MD Mar 27, 2019 17:10
[2019-03-27 20:07] VITALS: BP 139/74; PULSE 99; RESP 17
[2019-03-27] MEDS: INSULIN GLARGINE [LANTus] (100 UNITS/ML) SYG SC SCH (20:57)
[2019-03-27] MEDS ORDERED: VANCOMYCIN IV PER PHARMACY XX SCH (22:00)
[2019-03-27] MEDS ORDERED: VANCOMYCIN HCL 1.5 GM in SOD CHLORIDE 0.9% 250 ML IVPB ONE (23:00)
--- NOTE | 2019-03-27 23:56 | CONS ---
DATE OF ADMISSION: 03/23/2019 DATE OF CONSULTATION: 03/27/2019 TYPE OF CONSULTATION: Infectious disease. REASON FOR CONSULTATION: Antibiotic management. HISTORY OF PRESENT ILLNESS: Dudley Park is a 54-year-old male who was admitted on the f or abnormal lab results. The patient's history includes: 1. Hypertension. 2. Diabetes. The patient presents with blasts in his blood. The patient was seen again from 03/22/2019 for multip le complaints and was diagnosed with bronchitis. CBC was done, which showed anemia and Dr. Cash, our pathologist, called, noted there were blasts in the manual differential. The patient was called in for evaluation. He was seen previously for abdominal pain, headache, and cough. He had fever at that time, but no fever today. Primary doctor is . PAST MEDICAL HISTORY: Positive for hypertension and hyperlipidemia. FAMILY HISTORY: Noncontributory. SOCIAL HISTORY: Does not smoke, drink, or abuse drugs. ALLERGIES: NONE TO PENICILLIN, SULFA, OR FOODS. MEDICATIONS: Per chart. REVIEW OF SYSTEMS: As per HPI. On admission, his white count is 5.8, H and H of 8.8/25.7, platelets 107,000, with 63% neutrophils an d 7% blasts. BUN and creatinine 21/1.15, glucose of 152. PHYSICAL EXAMINATION: VITAL SIGNS: Stable. SKIN: Without generalized rash. HEENT: Within normal limits. NECK: Supple. LYMPH NODES: None palpable. CHEST: Decreased breath sounds at the bases. HEART: Without murmur or gallop. ABDOMEN: Soft, nontender, without organosplenomegaly or masses. EXTREMITIES: Without cyanosis, clubbing, or edema. RECTAL AND GENITAL: Deferred. NEUROLOGICAL: No focal neurological abnormalities. IMPRESSION AND PLAN: Patient was admitted for a bone marrow biopsy and to delineate what his problem is. The patient was seen by Dr. Jesse Parry. The patient was thought to have acute myelogenous leukemia. If so, we will need a Worthington catheter, and he was started on chemotherapy. His white cou nt on the was 3000, H and H of 7.1 and 21.5, platelet count 109,000. BUN and creatinine 8/0.63. Glucose of 153. Today, patient has a febrile illness with pancytopenia and blasts on manual differ ential. Bone marrow biopsy is pending. He is on neutropenic precautions, antipyretics. His H and H now is 6.9 and 21.2, platelet count of 106,000, white count of 3000. BUN and creatinine 9/0.64. Jose weber was started on cefepime, which I think is reasonable. His temperature was up to 102 yesterday. Blood cultures were done x4. A urine culture is pending. Needle biopsy was done of the left iliac crest and will await the results. I will dictate my findings to the hospitalist and Dr. Parry. Dictated By: MELLISA ORR MD, JD/NTS Conf#: [id number] DID#: [id number] CC: KURTIS WHITTAKER MD;*End*
[2019-03-28 02:00] VITALS: BP 101/59; PULSE 91; RESP 18
[2019-03-28] MEDS: FUROSEMIDE 40 MG INJ IV SCH (05:50)
[2019-03-28] MEDS: CEFEPIME 2GM/50 ML (PMX) 50 ML IVPB SCH ×3 (05:50→22:01)
[2019-03-28] MEDS: ACETAMINOPHEN 325 MG TAB PO PRN ×2 (05:58→13:33)
[2019-03-28] MEDS ORDERED: VANCOMYCIN 1 GM 250 ML IVPB SCH ×2 (07:00→17:00)
[2019-03-28 08:10] VITALS: BP 125/74; PULSE 82; RESP 18
[2019-03-28] MEDS: INSULIN ASPART [NOVOLOG] 3 ML PEN SC SCH ×4 (08:42→22:21)
[2019-03-28] MEDS: POLYETHYLENE GLYCOL 17 GM PACKET PO SCH ×2 (09:09→21:00)
[2019-03-28] MEDS: LISINOPRIL 10 MG TAB PO SCH ×2 (09:10→22:04)
--- NOTE | 2019-03-28 11:08 | PN ---
Date/Time of Note Date/Time of Note DATE: 03/28/19 TIME: 11:05 Assessment/Plan VTE Prophylaxis Risk score (from [place])>0 risk: 4 SCD applied (from [place]): Yes Pharmacological prophylaxis: NA/contraindicated Pharm contraindication: other (anemia) Lines/Catheters IV [facility]ter Type (from [facility]): Peripheral IV Urinary Cath still in place: No Assessment/Plan Hospital Course Assessment and plan 1. Febrile illness with pancytopenia and blast cells on manual differential. 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 - Antipyretics as needed for fever. - Monitor for infection - ID consult to follow -continue on abx - f/u cultures 2.Diabetes type 2. - HbA1c is 9.6 - Continue on insulin regimen. 3. Hypertension. - Continue antihypertensives. 4. dyspnea - CXR with pulmonary congestion - start on lasix - breathing tx 5. CHF - absence management consultant following - continue medical optimization 6. 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 Plan for placement of double-lumen Worthington catheter for chemotherapy. Follow-up with oncologist recommendations. Monitor labs. Discussed plan of care with Dr. Wagner Result Diagram: 03/28/19 0509 03/28/19 0509 Results 24hrs Laboratory Tests Test 03/27/19 12:45 03/27/19 17:45 03/27/19 20:53 03/28/19 02:05 Bedside Glucose 158 160 236 H 155 Test 03/28/19 05:09 03/28/19 08:32 White Blood Count 3.5 #L Red Blood Count 2.27 L Hemoglobin 7.2 L Hematocrit 21.1 L Mean Corpuscular 93.0 Volume Mean Corpuscular 31.7 Hemoglobin Mean Corpuscular 34.1 Hemoglobin Concent Red Cell 13.4 Distribution Width Platelet Count 95 L Mean Platelet Volume 8.8 Immature 8.000 H Granulocytes % Neutrophils % Segmented 33 L Neutrophils % (Manual) Band Neutrophils % 6 H (Manual) Lymphocytes % Lymphocytes % 49 (Manual) Reactive Lymphocytes 2 H % (Manual) Monocytes % Monocytes % (Manual) 2 Eosinophils % Basophils % Metamyelocytes % 1 H (manual) Myelocytes % 1 H (Manual) Blast Cells % 6.0 H (Manual) Nucleated Red Blood 0.0 Cells % Immature 0.280 H Granulocytes # Neutrophils # Neutrophils # 1.2 L (Manual) Band Neutrophils # 0.2 Lymphocytes (Manual) 1.7 Lymphocytes # Reactive Lymphocytes 0.0 # Monocytes # Monocytes # (Manual) 0.0 L Eosinophils # Basophils # Metamyelocytes # 0.0 Myelocytes # 0.0 Nucleated Red Blood Cells # Platelet Estimate DECREASED Polychromasia 1+ Anisocytosis 1+ Microcytosis 1+ Sodium Level 134 L Potassium Level 3.9 Chloride Level 99 Carbon Dioxide Level 26 Anion Gap 9 Blood Urea Nitrogen 12 Creatinine 0.61 Est Glomerular > 60 Filtrat Rate mL/min Glucose Level 151 Calcium Level 8.0 L Magnesium Level 1.8 Bedside Glucose 165 Subjective 24 Hr Interval Summary Free Text/Dictation reports breathing better. no s/s of distress Exam/Review of Systems Exam Vitals Vital Signs Date Temp Pulse Resp B/P (MAP) Pulse Ox O2 O2 Flow FiO2 Time Delivery Rate 03/28/19 98.6 82 18 125/74 96 Room Air 08:10 (91) Intake and Output 03/27/19 03/27/19 03/28/19 1515:00 23:00 07:00 IntakeIntake Total 1240 ml 1250 ml 780 ml BalanceBalance 1240 ml 1250 ml 780 ml Exam Constitutional: alert, oriented Psych: no complaints Eyes: nl conjunctiva Respiratory: no obvious wheezing/rhonchi Cardiovascular: regular rate and rhythm Gastrointestinal: soft, non-tender Neurological: TELE TECH II-XII intact, nl mental status, nl speech Skin: other (pale) Results Results 24hrs Laboratory Tests Test 03/27/19 12:45 03/27/19 17:45 03/27/19 20:53 03/28/19 02:05 Bedside Glucose 158 160 236 H 155 Test 03/28/19 05:09 03/28/19 08:32 White Blood Count 3.5 #L Red Blood Count 2.27 L Hemoglobin 7.2 L Hematocrit 21.1 L Mean Corpuscular 93.0 Volume Mean Corpuscular 31.7 Hemoglobin Mean Corpuscular 34.1 Hemoglobin Concent Red Cell 13.4 Distribution Width Platelet Count 95 L Mean Platelet Volume 8.8 Immature 8.000 H Granulocytes % Neutrophils % Segmented 33 L Neutrophils % (Manual) Band Neutrophils % 6 H (Manual) Lymphocytes % Lymphocytes % 49 (Manual) Reactive Lymphocytes 2 H % (Manual) Monocytes % Monocytes % (Manual) 2 Eosinophils % Basophils % Metamyelocytes % 1 H (manual) Myelocytes % 1 H (Manual) Blast Cells % 6.0 H (Manual) Nucleated Red Blood 0.0 Cells % Immature 0.280 H Granulocytes # Neutrophils # Neutrophils # 1.2 L (Manual) Band Neutrophils # 0.2 Lymphocytes (Manual) 1.7 Lymphocytes # Reactive Lymphocytes 0.0 # Monocytes # Monocytes # (Manual) 0.0 L Eosinophils # Basophils # Metamyelocytes # 0.0 Myelocytes # 0.0 Nucleated Red Blood Cells # Platelet Estimate DECREASED Polychromasia 1+ Anisocytosis 1+ Microcytosis 1+ Sodium Level 134 L Potassium Level 3.9 Chloride Level 99 Carbon Dioxide Level 26 Anion Gap 9 Blood Urea Nitrogen 12 Creatinine 0.61 Est Glomerular > 60 Filtrat Rate mL/min Glucose Level 151 Calcium Level 8.0 L Magnesium Level 1.8 Bedside Glucose 165 Medications Medication Current Medications Insulin Aspart (Novolog Insulin Pen) NOVOLOG *MILD* ALGORITHM WITH MEALS BEDTIME SC Last administered on 03/28/19at 08:42; Admin Dose 1 UNIT; Start 03/23/19 at 18:00 IV Flush (NS 3 ml) 3 ml PER PROTOCOL IV ; Start 03/23/19 at 18:00 Ondansetron HCl (Zofran Inj) 4 mg Q6H PRN IV NAUSEA/VOMITING; Start 03/23/19 at 18:00 Acetaminophen (Tylenol Tab) 650 mg Q6H PRN PO .PAIN 1-3 OR TEMP Last administered on 03/28/19at 05:58; Admin Dose 650 MG; Start 03/23/19 at 18:00 Acetaminophen/ Hydrocodone Bitart ([place] (5/325)) 1 tab Q6H PRN PO .MOD PAIN 4- 6; Start 03/23/19 at 18:00 Polyethylene Glycol (Miralax) 17 gm BID PO Last administered on 03/28/19at 09:09; Admin Dose 17 GM; Start 03/23/19 at 21:00 Miscellaneous Information 1 ea NOTE XX ; Start 03/23/19 at 18:00 Glucose (Glutose) 15 gm Q15M PRN PO DECREASED GLUCOSE; Start 03/23/19 at 18:00 Glucose (Glutose) 22.5 gm Q15M PRN PO DECREASED GLUCOSE; Start 03/23/19 at 18:00 Dextrose (D50w Syringe) 25 ml Q15M PRN IV DECREASED GLUCOSE; Start 03/23/19 at 18:00 Dextrose (D50w Syringe) 50 ml Q15M PRN IV DECREASED GLUCOSE; Start 03/23/19 at 18:00 Glucagon (Glucagen) 1 mg Q15M PRN IM DECREASED GLUCOSE; Start 03/23/19 at 18:00 Glucose (Glutose) 15 gm Q15M PRN BUCCAL DECREASED GLUCOSE; Start 03/23/19 at 18:00 Hydralazine HCl (Apresoline) 10 mg Q4H PRN IV FOR SBP>170; Start 03/26/19 at 03:30 Insulin Glargine (Lantus) 15 units DAILY@2000 SC Last administered on 03/27/19at 20:57; Admin Dose 15 UNITS; Start 03/26/19 at 20:00 Albuterol/ Ipratropium (Duoneb) 3 ml Q2H RESP THERAPY PRN HHN sob; Start 03/26/19 at 12:30 Cefepime HCl 50 ml @ 100 mls/hr Q8 IVPB Last administered on 03/28/19 05:50; Admin Dose 100 MLS/HR; Start 03/27/19 at 14:00 Furosemide (Lasix) 40 mg DAILY@0600 IV Last administered on 03/28/19 05:50; Admin Dose 40 MG; Start 03/27/19 at 11:00 Lisinopril (Zestril) 10 mg BID PO Last administered on 03/28/19 09:10; Admin Dose 10 MG; Start 03/28/19 at 09:00 Carvedilol (Coreg) 6.25 mg BID PO Last administered on 03/28/19 09:10; Admin Dose 6.25 MG; Start 03/27/19 at 21:00 Vancomycin HCl (Vanco Iv Per Pharmacy) 1 ea Per Rx Protocol XX ; Start 03/27/19 at 22:00 Vancomycin HCl 250 ml @ 125 mls/hr Q8H IVPB Last administered on 03/28/19 09:10; Admin Dose 125 MLS/HR; Start 03/28/19 at 07:00 JAY REEVES NP Mar 28, 2019 11:08
--- NOTE | 2019-03-28 13:12 | CONS ---
Assessment/Plan Assessment/Plan Hospital Course (Demo Recall) Patient is alert complaining of chills he is still spiking low-grade fevers with a T-max this morning 100.2 WBC today 3.5 platelets 95 Blood cultures and urine culture negative Chest x-ray this morning revealed no acute pulmonary abnormality BUN 12 creatinine 0.61 Antimicrobials: Vancomycin cefepime Physical examination: Well-developed middle-aged man who is alert in no distress head atraumatic normocephalic sclera nonicteric vehicle mucosa pink neck is supple chest rise symmetrical breath sounds clear Heart S1-S2 abdomen soft bowel sounds present extremities without cyanosis edema Assessment: 1. Neutropenic fevers 2. AML, newly diagnosed 3. Diabetes 4. Hypertension 5. Pancytopenia Plan: Clinically stable, continue antibiotics until neutropenia resolves, follow oncology recommendations, pending Port-A-Cath placement Consultation Date/Type/Reason Admit Date/Time Mar 23, 2019 at 16:10 Initial Consult Date 03/24/19 Type of Consult id Requesting Provider: KATIE PACE NP Date/Time of Note DATE: 03/28/19 TIME: 13:11 Exam/Review of Systems Exam Vitals Vital Signs Date Temp Pulse Resp B/P (MAP) Pulse Ox O2 O2 Flow FiO2 Time Delivery Rate 03/28/19 98.6 82 18 125/74 96 Room Air 08:10 (91) Intake and Output 03/27/19 03/27/19 03/28/19 1515:00 23:00 07:00 IntakeIntake Total 1240 ml 1250 ml 780 ml BalanceBalance 1240 ml 1250 ml 780 ml Results Result Diagram: 03/28/19 0509 03/28/19 0509 Results 24hrs Laboratory Tests Test 03/27/19 17:45 03/27/19 20:53 03/28/19 02:05 03/28/19 05:09 Bedside Glucose 160 236 H 155 White Blood Count 3.5 #L Red Blood Count 2.27 L Hemoglobin 7.2 L Hematocrit 21.1 L Mean Corpuscular 93.0 Volume Mean Corpuscular 31.7 Hemoglobin Mean Corpuscular 34.1 Hemoglobin Concen t Red Cell 13.4 Distribution Width Platelet Count 95 L Mean Platelet 8.8 Volume Immature 8.000 H Granulocytes % Neutrophils % Segmented 33 L Neutrophils % (Manual) Band Neutrophils 6 H % (Manual) Lymphocytes % Lymphocytes % 49 (Manual) Reactive 2 H Lymphocytes % (Manual) Monocytes % Monocytes % 2 (Manual) Eosinophils % Basophils % Metamyelocytes % 1 H (manual) Myelocytes % 1 H (Manual) Blast Cells % 6.0 H (Manual) Nucleated Red 0.0 Blood Cells % Immature 0.280 H Granulocytes # Neutrophils # Neutrophils # 1.2 L (Manual) Band Neutrophils 0.2 # Lymphocytes 1.7 (Manual) Lymphocytes # Reactive 0.0 Lymphocytes # Monocytes # Monocytes # 0.0 L (Manual) Eosinophils # Basophils # Metamyelocytes # 0.0 Myelocytes # 0.0 Nucleated Red Blood Cells # Platelet Estimate DECREASED Polychromasia 1+ Anisocytosis 1+ Microcytosis 1+ Sodium Level 134 L Potassium Level 3.9 Chloride Level 99 Carbon Dioxide 26 Level Anion Gap 9 Blood Urea 12 Nitrogen Creatinine 0.61 Est Glomerular > 60 Filtrat Rate mL/min Glucose Level 151 Calcium Level 8.0 L Magnesium Level 1.8 Test 03/28/19 08:32 03/28/19 11:30 03/28/19 13:02 Bedside Glucose 165 242 H Urine Color YELLOW Urine Clarity SLIGHTLY CLOUDY A Urine pH 5.0 Urine Specific 1.018 [place] Urine Ketones TRACE A Urine Nitrite NEGATIVE Urine Bilirubin NEGATIVE Urine NEGATIVE Urobilinogen Urine Leukocyte NEGATIVE Esterase Urine Microscopic 0 RBC Urine Microscopic 2 WBC Urine Bacteria FEW A Urine Mucus FEW A Urine Hemoglobin NEGATIVE Urine Glucose 3+ H Urine Total NEGATIVE Protein Medications Medication Current Medications Insulin Aspart (Novolog Insulin Pen) NOVOLOG *MILD* ALGORITHM WITH MEALS BEDTIME SC Last administered on 03/28/19at 08:42; Admin Dose 1 UNIT; Start 03/23/19 at 18:00 IV Flush (NS 3 ml) 3 ml PER PROTOCOL IV ; Start 03/23/19 at 18:00 Ondansetron HCl (Zofran Inj) 4 mg Q6H PRN IV NAUSEA/VOMITING; Start 03/23/19 at 18:00 Acetaminophen (Tylenol Tab) 650 mg Q6H PRN PO .PAIN 1-3 OR TEMP Last administered on 03/28/19at 05:58; Admin Dose 650 MG; Start 03/23/19 at 18:00 Acetaminophen/ Hydrocodone Bitart ([place] (5/325)) 1 tab Q6H PRN PO .MOD PAIN 4- 6; Start 03/23/19 at 18:00 Polyethylene Glycol (Miralax) 17 gm BID PO Last administered on 03/28/19at 09:09; Admin Dose 17 GM; Start 03/23/19 at 21:00 Miscellaneous Information 1 ea NOTE XX ; Start 03/23/19 at 18:00 Glucose (Glutose) 15 gm Q15M PRN PO DECREASED GLUCOSE; Start 03/23/19 at 18:00 Glucose (Glutose) 22.5 gm Q15M PRN PO DECREASED GLUCOSE; Start 03/23/19 at 18:00 Dextrose (D50w Syringe) 25 ml Q15M PRN IV DECREASED GLUCOSE; Start 03/23/19 at 18:00 Dextrose (D50w Syringe) 50 ml Q15M PRN IV DECREASED GLUCOSE; Start 03/23/19 at 18:00 Glucagon (Glucagen) 1 mg Q15M PRN IM DECREASED GLUCOSE; Start 03/23/19 at 18:00 Glucose (Glutose) 15 gm Q15M PRN BUCCAL DECREASED GLUCOSE; Start 03/23/19 at 18:00 Hydralazine HCl (Apresoline) 10 mg Q4H PRN IV FOR SBP>170; Start 03/26/19 at 03:30 Insulin Glargine (Lantus) 15 units DAILY@2000 SC Last administered on 03/27/19at 20:57; Admin Dose 15 UNITS; Start 03/26/19 at 20:00 Albuterol/ Ipratropium (Duoneb) 3 ml Q2H RESP THERAPY PRN HHN sob; Start 03/26/19 at 12:30 Cefepime HCl 50 ml @ 100 mls/hr Q8 IVPB Last administered on 03/28/19at 05:50; Admin Dose 100 MLS/HR; Start 03/27/19 at 14:00 Furosemide (Lasix) 40 mg DAILY@0600 IV Last administered on 03/28/19at 05:50; Admin Dose 40 MG; Start 03/27/19 at 11:00 Lisinopril (Zestril) 10 mg BID PO Last administered on 03/28/19at 09:10; Admin Dose 10 MG; Start 03/28/19 at 09:00 Carvedilol (Coreg) 6.25 mg BID PO Last administered on 03/28/19at 09:10; Admin Dose 6.25 MG; Start 03/27/19 at 21:00 Vancomycin HCl (Vanco Iv Per Pharmacy) 1 ea Per Rx Protocol XX ; Start 03/27/19 at 22:00 Vancomycin HCl 250 ml @ 125 mls/hr Q8H IVPB ; Start 03/28/19 at 17:00 Miscellaneous Information (*Rx Drug Level Order Reminder*) 1 0000 ONCE XX ; Start 03/29/19 at 00:00; Stop 03/29/19 at 00:01 JEANNIE NICHOLSON NP Mar 28, 2019 13:12
--- NOTE | 2019-03-28 14:33 | PN ---
Date/Time of Note Date/Time of Note DATE: 03/28/19 TIME: 14:28 Assessment/Plan VTE Prophylaxis Risk score (from [facility])>0 risk: 4 SCD applied (from [facility]): Yes Pharmacological prophylaxis: NA/contraindicated (progressive pancytopenia) Pharm contraindication: other (progressive pancytopenia) Lines/Catheters IV Catheter Type (from [facility]): Peripheral IV Urinary Cath still in place: No Assessment/Plan Assessment/Plan [place] has been delayed since there is no doctor presently available to perform the procedure. [employer] Deny is working on getting someone to do it. He also developed high fever and is now on antibiotics. I have spoken to pt, and son. The plan will be to start 7 + 3 regimen once venous access is obtained. If we cannot get a [place], we may need to use a PICC line. Result Diagram: 03/28/19 0509 03/28/19 0509 Results 24hrs Laboratory Tests Test 03/27/19 17:45 03/27/19 20:53 03/28/19 02:05 03/28/19 05:09 Bedside Glucose 160 236 H 155 White Blood Count 3.5 #L Red Blood Count 2.27 L Hemoglobin 7.2 L Hematocrit 21.1 L Mean Corpuscular 93.0 Volume Mean Corpuscular 31.7 Hemoglobin Mean Corpuscular 34.1 Hemoglobin Concen t Red Cell 13.4 Distribution Width Platelet Count 95 L Mean Platelet 8.8 Volume Immature 8.000 H Granulocytes % Neutrophils % Segmented 33 L Neutrophils % (Manual) Band Neutrophils 6 H % (Manual) Lymphocytes % Lymphocytes % 49 (Manual) Reactive 2 H Lymphocytes % (Manual) Monocytes % Monocytes % 2 (Manual) Eosinophils % Basophils % Metamyelocytes % 1 H (manual) Myelocytes % 1 H (Manual) Blast Cells % 6.0 H (Manual) Nucleated Red 0.0 Blood Cells % Immature 0.280 H Granulocytes # Neutrophils # Neutrophils # 1.2 L (Manual) Band Neutrophils 0.2 # Lymphocytes 1.7 (Manual) Lymphocytes # Reactive 0.0 Lymphocytes # Monocytes # Monocytes # 0.0 L (Manual) Eosinophils # Basophils # Metamyelocytes # 0.0 Myelocytes # 0.0 Nucleated Red Blood Cells # Platelet Estimate DECREASED Polychromasia 1+ Anisocytosis 1+ Microcytosis 1+ Sodium Level 134 L Potassium Level 3.9 Chloride Level 99 Carbon Dioxide 26 Level Anion Gap 9 Blood Urea 12 Nitrogen Creatinine 0.61 Est Glomerular > 60 Filtrat Rate mL/min Glucose Level 151 Calcium Level 8.0 L Magnesium Level 1.8 Test 03/28/19 08:32 03/28/19 11:30 03/28/19 13:02 Bedside Glucose 165 242 H Urine Color YELLOW Urine Clarity SLIGHTLY CLOUDY A Urine pH 5.0 Urine Specific 1.018 [place] Urine Ketones TRACE A Urine Nitrite NEGATIVE Urine Bilirubin NEGATIVE Urine NEGATIVE Urobilinogen Urine Leukocyte NEGATIVE Esterase Urine Microscopic 0 RBC Urine Microscopic 2 WBC Urine Bacteria FEW A Urine Mucus FEW A Urine Hemoglobin NEGATIVE Urine Glucose 3+ H Urine Total NEGATIVE Protein Subjective 24 Hr Interval Summary Free Text/Dictation Pt had fever but is alert and says he is comfortable presently. Exam/Review of Systems Exam Vitals Vital Signs Date Temp Pulse Resp B/P (MAP) Pulse Ox O2 O2 Flow FiO2 Time Delivery Rate 03/28/19 101.9 13:33 03/28/19 82 18 125/74 96 Room Air 08:10 (91) Intake and Output 03/27/19 03/27/19 03/28/19 1515:00 23:00 07:00 IntakeIntake Total 1240 ml 1250 ml 780 ml BalanceBalance 1240 ml 1250 ml 780 ml Constitutional: alert, oriented Head: normocephalic Eyes: other (conjunctival pallor) ENMT: nl lips & teeth Neck: supple Respiratory: clear to auscultation Cardiovascular: regular rate and rhythm Gastrointestinal: soft, non-tender Results Results 24hrs Laboratory Tests Test 03/27/19 17:45 03/27/19 20:53 03/28/19 02:05 03/28/19 05:09 Bedside Glucose 160 236 H 155 White Blood Count 3.5 #L Red Blood Count 2.27 L Hemoglobin 7.2 L Hematocrit 21.1 L Mean Corpuscular 93.0 Volume Mean Corpuscular 31.7 Hemoglobin Mean Corpuscular 34.1 Hemoglobin Concen t Red Cell 13.4 Distribution Width Platelet Count 95 L Mean Platelet 8.8 Volume Immature 8.000 H Granulocytes % Neutrophils % Segmented 33 L Neutrophils % (Manual) Band Neutrophils 6 H % (Manual) Lymphocytes % Lymphocytes % 49 (Manual) Reactive 2 H Lymphocytes % (Manual) Monocytes % Monocytes % 2 (Manual) Eosinophils % Basophils % Metamyelocytes % 1 H (manual) Myelocytes % 1 H (Manual) Blast Cells % 6.0 H (Manual) Nucleated Red 0.0 Blood Cells % Immature 0.280 H Granulocytes # Neutrophils # Neutrophils # 1.2 L (Manual) Band Neutrophils 0.2 # Lymphocytes 1.7 (Manual) Lymphocytes # Reactive 0.0 Lymphocytes # Monocytes # Monocytes # 0.0 L (Manual) Eosinophils # Basophils # Metamyelocytes # 0.0 Myelocytes # 0.0 Nucleated Red Blood Cells # Platelet Estimate DECREASED Polychromasia 1+ Anisocytosis 1+ Microcytosis 1+ Sodium Level 134 L Potassium Level 3.9 Chloride Level 99 Carbon Dioxide 26 Level Anion Gap 9 Blood Urea 12 Nitrogen Creatinine 0.61 Est Glomerular > 60 Filtrat Rate mL/min Glucose Level 151 Calcium Level 8.0 L Magnesium Level 1.8 Test 03/28/19 08:32 03/28/19 11:30 03/28/19 13:02 Bedside Glucose 165 242 H Urine Color YELLOW Urine Clarity SLIGHTLY CLOUDY A Urine pH 5.0 Urine Specific 1.018 [place] Urine Ketones TRACE A Urine Nitrite NEGATIVE Urine Bilirubin NEGATIVE Urine NEGATIVE Urobilinogen Urine Leukocyte NEGATIVE Esterase Urine Microscopic 0 RBC Urine Microscopic 2 WBC Urine Bacteria FEW A Urine Mucus FEW A Urine Hemoglobin NEGATIVE Urine Glucose 3+ H Urine Total NEGATIVE Protein Medications Medication Current Medications Insulin Aspart (Novolog Insulin Pen) NOVOLOG *MILD* ALGORITHM WITH MEALS BEDTIME SC Last administered on 03/28/19at 13:13; Admin Dose 3 UNIT; Start 03/23/19 at 18:00 IV Flush (NS 3 ml) 3 ml PER PROTOCOL IV ; Start 03/23/19 at 18:00 Ondansetron HCl (Zofran Inj) 4 mg Q6H PRN IV NAUSEA/VOMITING; Start 03/23/19 at 18:00 Acetaminophen (Tylenol Tab) 650 mg Q6H PRN PO .PAIN 1-3 OR TEMP Last administered on 03/28/19at 13:33; Admin Dose 650 MG; Start 03/23/19 at 18:00 Acetaminophen/ Hydrocodone Bitart ([place] (5/325)) 1 tab Q6H PRN PO .MOD PAIN 4- 6; Start 03/23/19 at 18:00 Polyethylene Glycol (Miralax) 17 gm BID PO Last administered on 03/28/19at 09:09; Admin Dose 17 GM; Start 03/23/19 at 21:00 Miscellaneous Information 1 ea NOTE XX ; Start 03/23/19 at 18:00 Glucose (Glutose) 15 gm Q15M PRN PO DECREASED GLUCOSE; Start 03/23/19 at 18:00 Glucose (Glutose) 22.5 gm Q15M PRN PO DECREASED GLUCOSE; Start 03/23/19 at 18:00 Dextrose (D50w Syringe) 25 ml Q15M PRN IV DECREASED GLUCOSE; Start 03/23/19 at 18:00 Dextrose (D50w Syringe) 50 ml Q15M PRN IV DECREASED GLUCOSE; Start 03/23/19 at 18:00 Glucagon (Glucagen) 1 mg Q15M PRN IM DECREASED GLUCOSE; Start 03/23/19 at 18:00 Glucose (Glutose) 15 gm Q15M PRN BUCCAL DECREASED GLUCOSE; Start 03/23/19 at 18:00 Hydralazine HCl (Apresoline) 10 mg Q4H PRN IV FOR SBP>170; Start 03/26/19 at 03:30 Insulin Glargine (Lantus) 15 units DAILY@2000 SC Last administered on 03/27/19at 20:57; Admin Dose 15 UNITS; Start 03/26/19 at 20:00 Albuterol/ Ipratropium (Duoneb) 3 ml Q2H RESP THERAPY PRN HHN sob; Start 03/26/19 at 12:30 Cefepime HCl 50 ml @ 100 mls/hr Q8 IVPB Last administered on 03/28/19at 05:50; Admin Dose 100 MLS/HR; Start 03/27/19 at 14:00 Furosemide (Lasix) 40 mg DAILY@0600 IV Last administered on 03/28/19at 05:50; Admin Dose 40 MG; Start 03/27/19 at 11:00 Lisinopril (Zestril) 10 mg BID PO Last administered on 03/28/19at 09:10; Admin Dose 10 MG; Start 03/28/19 at 09:00 Carvedilol (Coreg) 6.25 mg BID PO Last administered on 03/28/19at 09:10; Admin Dose 6.25 MG; Start 03/27/19 at 21:00 Vancomycin HCl (Vanco Iv Per Pharmacy) 1 ea Per Rx Protocol XX ; Start 03/27/19 at 22:00 Vancomycin HCl 250 ml @ 125 mls/hr Q8H IVPB ; Start 03/28/19 at 17:00 Miscellaneous Information (*Rx Drug Level Order Reminder*) 1 0000 ONCE XX ; Start 03/29/19 at 00:00; Stop 03/29/19 at 00:01 BETTE MALDONADO MD Mar 28, 2019 14:33
[2019-03-28 14:55] VITALS: BP 128/73; PULSE 97; RESP 18
[2019-03-28] MEDS ORDERED: POTASSIUM CHLORIDE (SR) 20 MEQ TAB PO STA (17:15)
--- NOTE | 2019-03-28 17:17 | CONS ---
Assessment/Plan Assessment/Plan Hospital Course (Demo Recall) Acute decompensated systolic congestive heart failure Newly diagnosed cardia myopathy LV ejection fraction 35 to 40% Newly diagnosed AML Diabetes Hypertension Patient with improvement in respiratory status, would plan on transition to p.o. in the next 1 to 2 days if continues to improve. Continue carvedilol and titrate as heart rate and blood pressure permits Continue lisinopril and titrate as renal function and blood pressure permits Maintain potassium above 4.0 and magnesium above 2.0. Consultation Date/Type/Reason Admit Date/Time Mar 23, 2019 at 16:10 Initial Consult Date 03/24/19 Type of Consult Cardiology Requesting Provider: KATIE PACE NP Date/Time of Note DATE: 03/28/19 TIME: 17:16 24 HR Interval Summary Free Text/Dictation Shortness of breath is much better. Denies palpitations, dizziness or chest pain Exam/Review of Systems Vital Signs Vitals Vital Signs Date Temp Pulse Resp B/P (MAP) Pulse Ox O2 O2 Flow FiO2 Time Delivery Rate 03/28/19 99.1 15:33 03/28/19 97 18 128/73 92 Room Air 14:55 (91) Intake and Output 03/27/19 03/27/19 03/28/19 1515:00 23:00 07:00 IntakeIntake Total 1240 ml 1250 ml 780 ml BalanceBalance 1240 ml 1250 ml 780 ml Exam Constitutional: alert, oriented Head: normocephalic Respiratory: other (Coarse breath sounds bilaterally, no wheezing) Cardiovascular: regular rate and rhythm (S1-S2 heard) Gastrointestinal: soft, non-tender, bowel sounds Extremities: other (No significant edema) Labs Result Diagram: 03/28/19 0509 03/28/19 0509 Results 24hrs Laboratory Tests Test 03/27/19 17:45 03/27/19 20:53 03/28/19 02:05 03/28/19 05:09 Bedside Glucose 160 236 H 155 White Blood Count 3.5 #L Red Blood Count 2.27 L Hemoglobin 7.2 L Hematocrit 21.1 L Mean Corpuscular 93.0 Volume Mean Corpuscular 31.7 Hemoglobin Mean Corpuscular 34.1 Hemoglobin Concen t Red Cell 13.4 Distribution Width Platelet Count 95 L Mean Platelet 8.8 Volume Immature 8.000 H Granulocytes % Neutrophils % Segmented 33 L Neutrophils % (Manual) Band Neutrophils 6 H % (Manual) Lymphocytes % Lymphocytes % 49 (Manual) Reactive 2 H Lymphocytes % (Manual) Monocytes % Monocytes % 2 (Manual) Eosinophils % Basophils % Metamyelocytes % 1 H (manual) Myelocytes % 1 H (Manual) Blast Cells % 6.0 H (Manual) Nucleated Red 0.0 Blood Cells % Immature 0.280 H Granulocytes # Neutrophils # Neutrophils # 1.2 L (Manual) Band Neutrophils 0.2 # Lymphocytes 1.7 (Manual) Lymphocytes # Reactive 0.0 Lymphocytes # Monocytes # Monocytes # 0.0 L (Manual) Eosinophils # Basophils # Metamyelocytes # 0.0 Myelocytes # 0.0 Nucleated Red Blood Cells # Platelet Estimate DECREASED Polychromasia 1+ Anisocytosis 1+ Microcytosis 1+ Sodium Level 134 L Potassium Level 3.9 Chloride Level 99 Carbon Dioxide 26 Level Anion Gap 9 Blood Urea 12 Nitrogen Creatinine 0.61 Est Glomerular > 60 Filtrat Rate mL/min Glucose Level 151 Calcium Level 8.0 L Magnesium Level 1.8 Test 03/28/19 08:32 03/28/19 11:30 03/28/19 13:02 Bedside Glucose 165 242 H Urine Color YELLOW Urine Clarity SLIGHTLY CLOUDY A Urine pH 5.0 Urine Specific 1.018 [place] Urine Ketones TRACE A Urine Nitrite NEGATIVE Urine Bilirubin NEGATIVE Urine NEGATIVE Urobilinogen Urine Leukocyte NEGATIVE Esterase Urine Microscopic 0 RBC Urine Microscopic 2 WBC Urine Bacteria FEW A Urine Mucus FEW A Urine Hemoglobin NEGATIVE Urine Glucose 3+ H Urine Total NEGATIVE Protein Medications Medications Current Medications Insulin Aspart (Novolog Insulin Pen) NOVOLOG *MILD* ALGORITHM WITH MEALS BEDTIME SC Last administered on 03/28/19at 13:13; Admin Dose 3 UNIT; Start 03/23/19 at 18:00 IV Flush (NS 3 ml) 3 ml PER PROTOCOL IV ; Start 03/23/19 at 18:00 Ondansetron HCl (Zofran Inj) 4 mg Q6H PRN IV NAUSEA/VOMITING; Start 03/23/19 at 18:00 Acetaminophen (Tylenol Tab) 650 mg Q6H PRN PO .PAIN 1-3 OR TEMP Last administered on 03/28/19at 13:33; Admin Dose 650 MG; Start 03/23/19 at 18:00 Acetaminophen/ Hydrocodone Bitart ([place] (5/325)) 1 tab Q6H PRN PO .MOD PAIN 4- 6; Start 03/23/19 at 18:00 Polyethylene Glycol (Miralax) 17 gm BID PO Last administered on 03/28/19at 09:09; Admin Dose 17 GM; Start 03/23/19 at 21:00 Miscellaneous Information 1 ea NOTE XX ; Start 03/23/19 at 18:00 Glucose (Glutose) 15 gm Q15M PRN PO DECREASED GLUCOSE; Start 03/23/19 at 18:00 Glucose (Glutose) 22.5 gm Q15M PRN PO DECREASED GLUCOSE; Start 03/23/19 at 18:00 Dextrose (D50w Syringe) 25 ml Q15M PRN IV DECREASED GLUCOSE; Start 03/23/19 at 18:00 Dextrose (D50w Syringe) 50 ml Q15M PRN IV DECREASED GLUCOSE; Start 03/23/19 at 18:00 Glucagon (Glucagen) 1 mg Q15M PRN IM DECREASED GLUCOSE; Start 03/23/19 at 18:00 Glucose (Glutose) 15 gm Q15M PRN BUCCAL DECREASED GLUCOSE; Start 03/23/19 at 18:00 Hydralazine HCl (Apresoline) 10 mg Q4H PRN IV FOR SBP>170; Start 03/26/19 at 03:30 Insulin Glargine (Lantus) 15 units DAILY@2000 SC Last administered on 03/27/19at 20:57; Admin Dose 15 UNITS; Start 03/26/19 at 20:00 Albuterol/ Ipratropium (Duoneb) 3 ml Q2H RESP THERAPY PRN HHN sob; Start 03/26/19 at 12:30 Cefepime HCl 50 ml @ 100 mls/hr Q8 IVPB Last administered on 03/28/19at 15:33; Admin Dose 100 MLS/HR; Start 03/27/19 at 14:00 Furosemide (Lasix) 40 mg DAILY@0600 IV Last administered on 03/28/19at 05:50; Admin Dose 40 MG; Start 03/27/19 at 11:00 Lisinopril (Zestril) 10 mg BID PO Last administered on 03/28/19at 09:10; Admin Dose 10 MG; Start 03/28/19 at 09:00 Carvedilol (Coreg) 6.25 mg BID PO Last administered on 03/28/19at 09:10; Admin Dose 6.25 MG; Start 03/27/19 at 21:00 Vancomycin HCl (Vanco Iv Per Pharmacy) 1 ea Per Rx Protocol XX ; Start 03/27/19 at 22:00 Vancomycin HCl 250 ml @ 125 mls/hr Q8H IVPB ; Start 03/28/19 at 17:00 Miscellaneous Information (*Rx Drug Level Order Reminder*) 1 0000 ONCE XX ; Start 03/29/19 at 00:00; Stop 03/29/19 at 00:01 Jun Ayala DO Mar 28, 2019 17:17
[2019-03-28] MEDS ORDERED: FUROSEMIDE 20 MG INJ IV ONE (17:30)
[2019-03-28] MEDS ORDERED: MAGNESIUM SULFATE 2 GM/50 ML 50 ML IVPB ONE (17:30)
[2019-03-28 20:00] VITALS: BP 122/75; PULSE 84; RESP 18
[2019-03-28] MEDS: INSULIN GLARGINE [LANTus] (100 UNITS/ML) SYG SC SCH (22:20)
[2019-03-29 02:00] VITALS: BP 108/63; PULSE 88; RESP 18
[2019-03-29] MEDS ORDERED: VANCOMYCIN 1 GM 250 ML IVPB SCH (03:30)
[2019-03-29] MEDS: CEFEPIME 2GM/50 ML (PMX) 50 ML IVPB SCH ×3 (06:57→22:22)
[2019-03-29] MEDS: FUROSEMIDE 40 MG INJ IV SCH (06:58)
--- NOTE | 2019-03-29 07:40 | RADRPT ---
Vent Rate: 104 bpm RR Interval: 576 msec FL Interval: 129 msec QRS Duration: 81 msec QT Interval: 319 msec QTC Interval: 420 msec P-R-T [place]: 35 - 50 - 118 degrees Sinus tachycardia...rate> 99 Nonspecific T abnormalities, lateral leads...T <-0.10mV, I aVL V5 V6 Electronically Signed By: Scot Devries
[2019-03-29 07:52] VITALS: BP 111/59; PULSE 80; RESP 19
[2019-03-29] MEDS: LISINOPRIL 10 MG TAB PO SCH ×2 (08:30→20:48)
[2019-03-29] MEDS: POLYETHYLENE GLYCOL 17 GM PACKET PO SCH ×2 (08:30→20:48)
[2019-03-29] MEDS: INSULIN ASPART [NOVOLOG] 3 ML PEN SC SCH ×4 (08:39→20:47)
[2019-03-29] MEDS: VANCOMYCIN HCL 1.25 GM in SOD CHLORIDE 0.9% 250 ML IVPB SCH ×2 (11:30→18:29)
--- NOTE | 2019-03-29 11:57 | PN ---
Date/Time of Note Date/Time of Note DATE: 03/29/19 TIME: 11:54 Assessment/Plan VTE Prophylaxis Risk score (from [facility])>0 risk: 5 SCD applied (from Ns): Yes Pharmacological prophylaxis: NA/contraindicated Pharm contraindication: other (anemic) Lines/Catheters IV C[facility]ter Type (from [facility] Saline Lock Urinary Cath still in place: No Assessment/Plan Hospital Course Assessment and plan 1. Febrile illness with pancytopenia and blast cells on manual differential. 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 - Antipyretics as needed for fever. - Monitor for infection - ID consult to follow -continue on abx - s/p double lumen vidales placement 2.Diabetes type 2. - HbA1c is 9.6 - Continue on insulin regimen. 3. Hypertension. - Continue antihypertensives. 4. dyspnea - improved - lasix prn 5. CHF - emergency doctor following - continue medical optimization 6. 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 transfer to [facility]. chemo per oncologist. continue daily labs monitoring Discussed plan of care with Dr. Wagner Result Diagram: 03/29/19 0252 03/29/19 0251 Results 24hrs Laboratory Tests Test 03/28/19 13:02 03/28/19 22:17 03/29/19 02:50 03/29/19 02:51 Bedside Glucose 242 H 269 H 195 Sodium Level 134 L Potassium Level 4.4 Chloride Level 103 Carbon Dioxide Level 23 Anion Gap 8 Blood Urea Nitrogen 17 Creatinine 0.64 Est Glomerular > 60 Filtrat Rate mL/min Glucose Level 174 Calcium Level 7.9 L Vancomycin Level 9.2 L Trough Test 03/29/19 02:52 03/29/19 08:29 White Blood Count 3.1 L Red Blood Count 2.32 L Hemoglobin 7.2 L Hematocrit 21.9 L Mean Corpuscular 94.4 Volume Mean Corpuscular 31.0 Hemoglobin Mean Corpuscular 32.9 Hemoglobin Concent Red Cell 13.4 Distribution Width Platelet Count 92 L Mean Platelet Volume 8.8 Immature 7.700 H Granulocytes % Neutrophils % Segmented 31 L Neutrophils % (Manual) Lymphocytes % Lymphocytes % 62 H (Manual) Monocytes % Monocytes % (Manual) 3 Eosinophils % Basophils % Basophils % (Manual) 1 Myelocytes % 2 H (Manual) Blast Cells % 1.0 H (Manual) Nucleated Red Blood 0.0 Cells % Immature 0.240 H Granulocytes # Neutrophils # Lymphocytes (Manual) 1.9 Lymphocytes # Monocytes # Monocytes # (Manual) 0.0 L Eosinophils # Basophils # Basophils # (Manual) 0.0 Myelocytes # 0.0 Nucleated Red Blood Cells # Platelet Estimate DECREASED Giant Platelets 2 H Polychromasia 1+ Anisocytosis 1+ Magnesium Level 2.6 H Bedside Glucose 201 Subjective 24 Hr Interval Summary Free Text/Dictation no s/s of distress comfortable at present Exam/Review of Systems Exam Vitals Vital Signs Date Temp Pulse Resp B/P (MAP) Pulse Ox O2 O2 Flow FiO2 Time Delivery Rate 03/29/19 98.9 80 19 111/59 95 07:52 (76) 03/29/19 Room Air 02:00 Intake and Output 03/28/19 03/28/19 03/29/19 1515:00 23:00 07:00 IntakeIntake Total 490 ml 50 ml 1200 ml OutputOutput Total 550 ml BalanceBalance 490 ml 50 ml 650 ml Exam Exam Constitutional: alert, oriented Psych: no complaints Eyes: nl conjunctiva Respiratory: no obvious wheezing/rhonchi Cardiovascular: regular rate and rhythm Gastrointestinal: soft, non-tender 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, nl mental status, nl speech Skin: other (pale) Results Results 24hrs Laboratory Tests Test 03/28/19 13:02 03/28/19 22:17 03/29/19 02:50 03/29/19 02:51 Bedside Glucose 242 H 269 H 195 Sodium Level 134 L Potassium Level 4.4 Chloride Level 103 Carbon Dioxide Level 23 Anion Gap 8 Blood Urea Nitrogen 17 Creatinine 0.64 Est Glomerular > 60 Filtrat Rate mL/min Glucose Level 174 Calcium Level 7.9 L Vancomycin Level 9.2 L Trough Test 03/29/19 02:52 03/29/19 08:29 White Blood Count 3.1 L Red Blood Count 2.32 L Hemoglobin 7.2 L Hematocrit 21.9 L Mean Corpuscular 94.4 Volume Mean Corpuscular 31.0 Hemoglobin Mean Corpuscular 32.9 Hemoglobin Concent Red Cell 13.4 Distribution Width Platelet Count 92 L Mean Platelet Volume 8.8 Immature 7.700 H Granulocytes % Neutrophils % Segmented 31 L Neutrophils % (Manual) Lymphocytes % Lymphocytes % 62 H (Manual) Monocytes % Monocytes % (Manual) 3 Eosinophils % Basophils % Basophils % (Manual) 1 Myelocytes % 2 H (Manual) Blast Cells % 1.0 H (Manual) Nucleated Red Blood 0.0 Cells % Immature 0.240 H Granulocytes # Neutrophils # Lymphocytes (Manual) 1.9 Lymphocytes # Monocytes # Monocytes # (Manual) 0.0 L Eosinophils # Basophils # Basophils # (Manual) 0.0 Myelocytes # 0.0 Nucleated Red Blood Cells # Platelet Estimate DECREASED Giant Platelets 2 H Polychromasia 1+ Anisocytosis 1+ Magnesium Level 2.6 H Bedside Glucose 201 Medications Medication Current Medications Insulin Aspart (Novolog Insulin Pen) NOVOLOG *MILD* ALGORITHM WITH MEALS BEDTIME SC Last administered on 03/29/19at 08:39; Admin Dose 2 UNIT; Start 03/23/19 at 18:00 IV Flush (NS 3 ml) 3 ml PER PROTOCOL IV ; Start 03/23/19 at 18:00 Ondansetron HCl (Zofran Inj) 4 mg Q6H PRN IV NAUSEA/VOMITING; Start 03/23/19 at 18:00 Acetaminophen (Tylenol Tab) 650 mg Q6H PRN PO .PAIN 1-3 OR TEMP Last administered on 03/28/19at 13:33; Admin Dose 650 MG; Start 03/23/19 at 18:00 Acetaminophen/ Hydrocodone Bitart ([place] (5/325)) 1 tab Q6H PRN PO .MOD PAIN 4- 6; Start 03/23/19 at 18:00 Polyethylene Glycol (Miralax) 17 gm BID PO Last administered on 03/28/19at 09:09; Admin Dose 17 GM; Start 03/23/19 at 21:00 Miscellaneous Information 1 ea NOTE XX ; Start 03/23/19 at 18:00 Glucose (Glutose) 15 gm Q15M PRN PO DECREASED GLUCOSE; Start 03/23/19 at 18:00 Glucose (Glutose) 22.5 gm Q15M PRN PO DECREASED GLUCOSE; Start 03/23/19 at 18:00 Dextrose (D50w Syringe) 25 ml Q15M PRN IV DECREASED GLUCOSE; Start 03/23/19 at 18:00 Dextrose (D50w Syringe) 50 ml Q15M PRN IV DECREASED GLUCOSE; Start 03/23/19 at 18:00 Glucagon (Glucagen) 1 mg Q15M PRN IM DECREASED GLUCOSE; Start 03/23/19 at 18:00 Glucose (Glutose) 15 gm Q15M PRN BUCCAL DECREASED GLUCOSE; Start 03/23/19 at 18:00 Hydralazine HCl (Apresoline) 10 mg Q4H PRN IV FOR SBP>170; Start 03/26/19 at 03:30 Insulin Glargine (Lantus) 15 units DAILY@2000 SC Last administered on 03/28/19at 22:20; Admin Dose 15 UNITS; Start 03/26/19 at 20:00 Albuterol/ Ipratropium (Duoneb) 3 ml Q2H RESP THERAPY PRN HHN sob; Start 03/26/19 at 12:30 Cefepime HCl 50 ml @ 100 mls/hr Q8 IVPB Last administered on 03/29/19 06:57; Admin Dose 100 MLS/HR; Start 03/27/19 at 14:00 Furosemide (Lasix) 40 mg DAILY@0600 IV Last administered on 03/29/19at 06:58; Admin Dose 40 MG; Start 03/27/19 at 11:00 Lisinopril (Zestril) 10 mg BID PO Last administered on 03/29/19 08:30; Admin Dose 10 MG; Start 03/28/19 at 09:00 Carvedilol (Coreg) 6.25 mg BID PO Last administered on 03/29/19 08:30; Admin Dose 6.25 MG; Start 03/27/19 at 21:00 Vancomycin HCl (Vanco Iv Per Pharmacy) 1 ea Per Rx Protocol XX ; Start 03/27/19 at 22:00 Vancomycin HCl 1.25 gm/Sodium Chloride 250 ml @ 83.333 mls/ hr Q8H IVPB Last administered on 03/29/19at 11:30; Admin Dose 83.333 MLS/HR; Start 03/29/19 at 11:00 Miscellaneous Information (*Rx Drug Level Order Reminder*) VANCOMYCIN TROUGH LEVEL 1000 ONCE XX ; Start 03/30/19 at 10:00; Stop 03/30/19 at 10:01 JAY REEVES NP Mar 29, 2019 11:57
[2019-03-29] MEDS: ACETAMINOPHEN 325 MG TAB PO PRN ×2 (12:37→23:39)
--- NOTE | 2019-03-29 13:34 | CONS ---
Assessment/Plan Assessment/Plan Hospital Course (Demo Recall) Patient is alert eating lunch denies pain he is still having fevers Blood cultures and urine culture negative Chest x-ray revealed no acute pulmonary abnormality Antimicrobials: Vancomycin cefepime Physical examination: Well-developed middle-aged man who is alert in no distress head atraumatic normocephalic sclera nonicteric vehicle mucosa pink neck is supple chest rise symmetrical breath sounds clear Heart S1-S2 abdomen soft bowel sounds present extremities without cyanosis edema Assessment: 1. Ongoing fevers likely secondary to underlying malignancy and neutropenia 2. AML, newly diagnosed 3. Diabetes 4. Hypertension 5. Pancytopenia Plan: Clinically stable, all cultures negative, continue antibiotics, follow oncology recommendations, plan for Port-A-Cath placement Consultation Date/Type/Reason Admit Date/Time Mar 23, 2019 at 16:10 Initial Consult Date 03/24/19 Type of Consult id Requesting Provider: KATIE PACE NP Date/Time of Note DATE: 03/29/19 TIME: 13:32 Exam/Review of Systems Exam Vitals Vital Signs Date Temp Pulse Resp B/P (MAP) Pulse Ox O2 O2 Flow FiO2 Time Delivery Rate 03/29/19 101.3 12:37 03/29/19 80 19 111/59 95 07:52 (76) 03/29/19 Room Air 02:00 Intake and Output 03/28/19 03/28/19 03/29/19 1515:00 23:00 07:00 IntakeIntake Total 490 ml 50 ml 1200 ml OutputOutput Total 550 ml BalanceBalance 490 ml 50 ml 650 ml Results Result Diagram: 03/29/19 0252 03/29/19 0251 Results 24hrs Laboratory Tests Test 03/28/19 22:17 03/29/19 02:50 03/29/19 02:51 03/29/19 02:52 Bedside Glucose 269 H 195 Sodium Level 134 L Potassium Level 4.4 Chloride Level 103 Carbon Dioxide Level 23 Anion Gap 8 Blood Urea Nitrogen 17 Creatinine 0.64 Est Glomerular > 60 Filtrat Rate mL/min Glucose Level 174 Calcium Level 7.9 L Vancomycin Level 9.2 L Trough White Blood Count 3.1 L Red Blood Count 2.32 L Hemoglobin 7.2 L Hematocrit 21.9 L Mean Corpuscular 94.4 Volume Mean Corpuscular 31.0 Hemoglobin Mean Corpuscular 32.9 Hemoglobin Concent Red Cell 13.4 Distribution Width Platelet Count 92 L Mean Platelet Volume 8.8 Immature 7.700 H Granulocytes % Neutrophils % Segmented 31 L Neutrophils % (Manual) Lymphocytes % Lymphocytes % 62 H (Manual) Monocytes % Monocytes % (Manual) 3 Eosinophils % Basophils % Basophils % (Manual) 1 Myelocytes % 2 H (Manual) Blast Cells % 1.0 H (Manual) Nucleated Red Blood 0.0 Cells % Immature 0.240 H Granulocytes # Neutrophils # Lymphocytes (Manual) 1.9 Lymphocytes # Monocytes # Monocytes # (Manual) 0.0 L Eosinophils # Basophils # Basophils # (Manual) 0.0 Myelocytes # 0.0 Nucleated Red Blood Cells # Platelet Estimate DECREASED Giant Platelets 2 H Polychromasia 1+ Anisocytosis 1+ Magnesium Level 2.6 H Test 03/29/19 08:29 03/29/19 12:39 Bedside Glucose 201 301 H Medications Medication Current Medications Insulin Aspart (Novolog Insulin Pen) NOVOLOG *MILD* ALGORITHM WITH MEALS BEDTIME SC Last administered on 03/29/19at 12:44; Admin Dose 5 UNIT; Start 03/23/19 at 18:00 IV Flush (NS 3 ml) 3 ml PER PROTOCOL IV ; Start 03/23/19 at 18:00 Ondansetron HCl (Zofran Inj) 4 mg Q6H PRN IV NAUSEA/VOMITING; Start 03/23/19 at 18:00 Acetaminophen (Tylenol Tab) 650 mg Q6H PRN PO .PAIN 1-3 OR TEMP Last administ ered on 03/29/19at 12:37; Admin Dose 650 MG; Start 03/23/19 at 18:00 Acetaminophen/ Hydrocodone Bitart ([place] (5/325)) 1 tab Q6H PRN PO .MOD PAIN 4- 6; Start 03/23/19 at 18:00 Polyethylene Glycol (Miralax) 17 gm BID PO Last administered on 03/28/19at 09:09; Admin Dose 17 GM; Start 03/23/19 at 21:00 Miscellaneous Information 1 ea NOTE XX ; Start 03/23/19 at 18:00 Glucose (Glutose) 15 gm Q15M PRN PO DECREASED GLUCOSE; Start 03/23/19 at 18:00 Glucose (Glutose) 22.5 gm Q15M PRN PO DECREASED GLUCOSE; Start 03/23/19 at 18:00 Dextrose (D50w Syringe) 25 ml Q15M PRN IV DECREASED GLUCOSE; Start 03/23/19 at 18:00 Dextrose (D50w Syringe) 50 ml Q15M PRN IV DECREASED GLUCOSE; Start 03/23/19 at 18:00 Glucagon (Glucagen) 1 mg Q15M PRN IM DECREASED GLUCOSE; Start 03/23/19 at 18:00 Glucose (Glutose) 15 gm Q15M PRN BUCCAL DECREASED GLUCOSE; Start 03/23/19 at 18:00 Hydralazine HCl (Apresoline) 10 mg Q4H PRN IV FOR SBP>170; Start 03/26/19 at 03:30 Insulin Glargine (Lantus) 15 units DAILY@2000 SC Last administered on 03/28/19at 22:20; Admin Dose 15 UNITS; Start 03/26/19 at 20:00 Albuterol/ Ipratropium (Duoneb) 3 ml Q2H RESP THERAPY PRN HHN sob; Start 03/26/19 at 12:30 Cefepime HCl 50 ml @ 100 mls/hr Q8 IVPB Last administered on 03/29/19at 06:57; Admin Dose 100 MLS/HR; Start 03/27/19 at 14:00 Furosemide (Lasix) 40 mg DAILY@0600 IV Last administered on 03/29/19at 06:58; Admin Dose 40 MG; Start 03/27/19 at 11:00 Lisinopril (Zestril) 10 mg BID PO Last administered on 03/29/19at 08:30; Admin Dose 10 MG; Start 03/28/19 at 09:00 Carvedilol (Coreg) 6.25 mg BID PO Last administered on 03/29/19at 08:30; Admin Dose 6.25 MG; Start 03/27/19 at 21:00 Vancomycin HCl (Vanco Iv Per Pharmacy) 1 ea Per Rx Protocol XX ; Start 03/27/19 at 22:00 Vancomycin HCl 1.25 gm/Sodium Chloride 250 ml @ 83.333 mls/ hr Q8H IVPB Last administered on 03/29/19at 11:30; Admin Dose 83.333 MLS/HR; Start 03/29/19 at 11:00 Miscellaneous Information (*Rx Drug Level Order Reminder*) VANCOMYCIN TROUGH LEVEL 1000 ONCE XX ; Start 03/30/19 at 10:00; Stop 03/30/19 at 10:01 JEANNIE NICHOLSON NP Mar 29, 2019 13:34
--- NOTE | 2019-03-29 14:32 | CONS ---
Assessment/Plan Assessment/Plan Assessment/Plan (Daily) Acute decompensated systolic congestive heart failure Newly diagnosed cardia myopathy LV ejection fraction 35 to 40% Newly diagnosed AML Diabetes Hypertension Patient with improvement in respiratory status, would plan on transition to p.o. in the next 1 to 2 days if continues to improve. Continue carvedilol and titrate as heart rate and blood pressure permits Continue lisinopril and titrate as renal function and blood pressure permits Maintain potassium above 4.0 and magnesium above 2.0. Consultation Date/Type/Reason Admit Date/Time Mar 23, 2019 at 16:10 Initial Consult Date 03/24/19 Type of Consult Cardiology Requesting Provider: KATIE PACE NP Date/Time of Note DATE: 03/29/19 TIME: 14:32 24 HR Interval Summary Free Text/Dictation the patient with no cahnge Exam/Review of Systems Vital Signs Vitals Vital Signs Date Temp Pulse Resp B/P (MAP) Pulse Ox O2 O2 Flow FiO2 Time Delivery Rate 03/29/19 100.0 13:30 03/29/19 80 19 111/59 95 07:52 (76) 03/29/19 Room Air 02:00 Intake and Output 03/28/19 03/28/19 03/29/19 1515:00 23:00 07:00 IntakeIntake Total 490 ml 50 ml 1200 ml OutputOutput Total 550 ml BalanceBalance 490 ml 50 ml 650 ml Labs Result Diagram: 03/29/19 0252 03/29/19 0251 Results 24hrs Laboratory Tests Test 03/28/19 22:17 03/29/19 02:50 03/29/19 02:51 03/29/19 02:52 Bedside Glucose 269 H 195 Sodium Level 134 L Potassium Level 4.4 Chloride Level 103 Carbon Dioxide Level 23 Anion Gap 8 Blood Urea Nitrogen 17 Creatinine 0.64 Est Glomerular > 60 Filtrat Rate mL/min Glucose Level 174 Calcium Level 7.9 L Vancomycin Level 9.2 L Trough White Blood Count 3.1 L Red Blood Count 2.32 L Hemoglobin 7.2 L Hematocrit 21.9 L Mean Corpuscular 94.4 Volume Mean Corpuscular 31.0 Hemoglobin Mean Corpuscular 32.9 Hemoglobin Concent Red Cell 13.4 Distribution Width Platelet Count 92 L Mean Platelet Volume 8.8 Immature 7.700 H Granulocytes % Neutrophils % Segmented 31 L Neutrophils % (Manual) Lymphocytes % Lymphocytes % 62 H (Manual) Monocytes % Monocytes % (Manual) 3 Eosinophils % Basophils % Basophils % (Manual) 1 Myelocytes % 2 H (Manual) Blast Cells % 1.0 H (Manual) Nucleated Red Blood 0.0 Cells % Immature 0.240 H Granulocytes # Neutrophils # Lymphocytes (Manual) 1.9 Lymphocytes # Monocytes # Monocytes # (Manual) 0.0 L Eosinophils # Basophils # Basophils # (Manual) 0.0 Myelocytes # 0.0 Nucleated Red Blood Cells # Platelet Estimate DECREASED Giant Platelets 2 H Polychromasia 1+ Anisocytosis 1+ Magnesium Level 2.6 H Test 03/29/19 08:29 03/29/19 12:39 Bedside Glucose 201 301 H Medications Medications Current Medications Insulin Aspart (Novolog Insulin Pen) NOVOLOG *MILD* ALGORITHM WITH MEALS BEDTIME SC Last administered on 03/29/19at 12:44; Admin Dose 5 UNIT; Start 03/23/19 at 18:00 IV Flush (NS 3 ml) 3 ml PER PROTOCOL IV ; Start 03/23/19 at 18:00 Ondansetron HCl (Zofran Inj) 4 mg Q6H PRN IV NAUSEA/VOMITING; Start 03/23/19 at 18:00 Acetaminophen (Tylenol Tab) 650 mg Q6H PRN PO .PAIN 1-3 OR TEMP Last a dministered on 03/29/19at 12:37; Admin Dose 650 MG; Start 03/23/19 at 18:00 Acetaminophen/ Hydrocodone Bitart ([place] (5/325)) 1 tab Q6H PRN PO .MOD PAIN 4- 6; Start 03/23/19 at 18:00 Polyethylene Glycol (Miralax) 17 gm BID PO Last administered on 03/28/19at 09:09; Admin Dose 17 GM; Start 03/23/19 at 21:00 Miscellaneous Information 1 ea NOTE XX ; Start 03/23/19 at 18:00 Glucose (Glutose) 15 gm Q15M PRN PO DECREASED GLUCOSE; Start 03/23/19 at 18:00 Glucose (Glutose) 22.5 gm Q15M PRN PO DECREASED GLUCOSE; Start 03/23/19 at 18:00 Dextrose (D50w Syringe) 25 ml Q15M PRN IV DECREASED GLUCOSE; Start 03/23/19 at 18:00 Dextrose (D50w Syringe) 50 ml Q15M PRN IV DECREASED GLUCOSE; Start 03/23/19 at 18:00 Glucagon (Glucagen) 1 mg Q15M PRN IM DECREASED GLUCOSE; Start 03/23/19 at 18:00 Glucose (Glutose) 15 gm Q15M PRN BUCCAL DECREASED GLUCOSE; Start 03/23/19 at 18:00 Hydralazine HCl (Apresoline) 10 mg Q4H PRN IV FOR SBP>170; Start 03/26/19 at 03:30 Insulin Glargine (Lantus) 15 units DAILY@2000 SC Last administered on 03/28/19 22:20; Admin Dose 15 UNITS; Start 03/26/19 at 20:00 Albuterol/ Ipratropium (Duoneb) 3 ml Q2H RESP THERAPY PRN HHN sob; Start 03/26/19 at 12:30 Cefepime HCl 50 ml @ 100 mls/hr Q8 IVPB Last administered on 03/29/19 06:57; Admin Dose 100 MLS/HR; Start 03/27/19 at 14:00 Furosemide (Lasix) 40 mg DAILY@0600 IV Last administered on 03/29/19at 06:58; Admin Dose 40 MG; Start 03/27/19 at 11:00 Lisinopril (Zestril) 10 mg BID PO Last administered on 03/29/19at 08:30; Admin Dose 10 MG; Start 03/28/19 at 09:00 Carvedilol (Coreg) 6.25 mg BID PO Last administered on 03/29/19 08:30; Admin Dose 6.25 MG; Start 03/27/19 at 21:00 Vancomycin HCl (Vanco Iv Per Pharmacy) 1 ea Per Rx Protocol XX ; Start 03/27/19 at 22:00 Vancomycin HCl 1.25 gm/Sodium Chloride 250 ml @ 83.333 mls/ hr Q8H IVPB Last administered on 03/29/19at 11:30; Admin Dose 83.333 MLS/HR; Start 03/29/19 at 11:00 Miscellaneous Information (*Rx Drug Level Order Reminder*) VANCOMYCIN TROUGH LEVEL 1000 ONCE XX ; Start 03/30/19 at 10:00; Stop 03/30/19 at 10:01 EMRE PLASCENCIA MD Mar 29, 2019 14:32
[2019-03-29 14:50] VITALS: BP 117/68; PULSE 95; RESP 18
--- NOTE | 2019-03-29 15:48 | PN ---
DATE: 03/29/2019 SUBJECTIVE: The patient has had a double lumen Worthington catheter inserted. He is experiencing minima l discomfort in the area of insertion. He does not complain of shortness of breath or pleuritic pain . OBJECTIVE: GENERAL: The patient is a well-developed, well-nourished male in no acute distress. VITAL SIGNS: Temperature 99.2, pulse 95, respirations 18, blood pressure 117/68, pulse oximetry 97% on room air. SKIN: No ecchymosis, no petechiae or rashes, but warm to the touch. HEENT: Normocephalic. No evidence of trauma. Pupils are equal, round, react to light and accommoda tion. Sclerae are nonicteric. Oral mucosa is moist without lesions. Tongue is well papillated. No gingival hyperplasia, no hypertrophy of Waldeyer's ring. NECK: Supple. No jugular venous distention or thyroid enlargement. No carotid bruits. CHEST: Clear to auscultation and percussion. No rhonchi, wheezes, rales or rubs. There is a double lumen Worthington catheter tunneled subcutaneously in the right anterior chest. Site is covered with dr jose. HEART: Regular sinus rhythm. No S3, S4 or murmurs. ABDOMEN: Soft. No masses, no ascites. EXTREMITIES: Good range of motion. No clubbing, edema or cyanosis. NEUROLOGIC: Normal. LABORATORY DATA: Sodium 134, potassium ____, carbon dioxide 23, creatinine 0.64, BUN 17. Calcium is 7.9. WBC 3100 with an absolute neutrophil count of 1200, hemoglobin 7.2, hematocrit 21.9, platelet count i s 92,000. ASSESSMENT: Acute myelogenous leukemia. PLAN: 1. The patient will receive 2 units of packed red blood cells. 2. He will be transferred to [facility] to start chemotherapy with a 7-day infusion of ____ and 3 days o f daunorubicin. 3. We will also start the patient on allopurinol 300 mg daily. Dictated By: ERIN COLLADO MD SR/NTS Conf#: [id number] DID#: [id number] CC: MELLISA ORR MD; KURTIS WHITTAKER MD;*[facility]*
[2019-03-29] MEDS: ALLOPURINOL 300 MG TAB PO SCH (15:59)
[2019-03-29 18:08] VITALS: BP 136/82; PULSE 87; RESP 18
[2019-03-29 20:07] VITALS: BP 158/93; PULSE 88; RESP 20
[2019-03-29] MEDS: INSULIN GLARGINE [LANTus] (100 UNITS/ML) SYG SC SCH (20:45)
[2019-03-30] VITALS (7 sets, daily range): BP systolic 120–139; BP diastolic 76–88; PULSE 80–89; RESP 18–20; Ht 167.6 cm; Wt 70.5 kg
[2019-03-30] MEDS: VANCOMYCIN HCL 1.25 GM in SOD CHLORIDE 0.9% 250 ML IVPB SCH ×3 (02:44→20:45)
[2019-03-30] MEDS: FUROSEMIDE 40 MG INJ IV SCH (06:27)
[2019-03-30] MEDS: CEFEPIME 2GM/50 ML (PMX) 50 ML IVPB SCH ×3 (06:28→23:30)
[2019-03-30] MEDS: ALLOPURINOL 300 MG TAB PO SCH (08:31)
[2019-03-30] MEDS: POLYETHYLENE GLYCOL 17 GM PACKET PO SCH ×2 (08:31→20:54)
[2019-03-30] MEDS: LISINOPRIL 10 MG TAB PO SCH ×2 (08:32→20:53)
[2019-03-30] MEDS: INSULIN ASPART [NOVOLOG] 3 ML PEN SC SCH ×4 (08:34→20:53)
--- NOTE | 2019-03-30 12:34 | PN ---
Date/Time of Note Date/Time of Note DATE: 03/30/19 TIME: 12:32 Assessment/Plan VTE [place]axis [place] [facility] [place]: 5 [place] [facility] [place] Yes Pharmacological prophylaxis: NA/contraindicated Pharm contraindication: other (anemic) Lines/Catheters [facility] Per[facility] IV Urinary Cath still in place: No Assessment/Plan Hospital Course Assessment and plan 1. Febrile illness with pancytopenia and blast cells on manual differential. 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 - Antipyretics as needed for fever. - Monitor for infection - ID consult to follow -continue on abx - s/p double lumen vidales placement 2.Diabetes type 2. - HbA1c is 9.6 - Continue on insulin regimen. 3. Hypertension. - Continue antihypertensives. 4. dyspnea - improved - lasix prn 5. 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 Pancytopenia - secondary to AML - transfuse blood products prn Disposition and plan. daily cbc monitoring. transfuse blood products prn. chemo per oncologist Discussed plan of care with Dr. Abreu Result Diagram: 03/30/19 0428 03/30/19 0428 Results 24hrs Laboratory Tests Test 03/29/19 12:39 03/29/19 17:52 03/29/19 20:41 03/30/19 03:21 Bedside Glucose 301 H 239 H 321 H 193 Test 03/30/19 04:28 03/30/19 07:06 03/30/19 08:03 03/30/19 09:57 White Blood Count 3.6 L Red Blood Count 2.65 L Hemoglobin 8.3 L Hematocrit 24.6 L Mean Corpuscular 92.8 Volume Mean Corpuscular 31.3 Hemoglobin Mean Corpuscular 33.7 Hemoglobin Concen t Red Cell 13.4 Distribution Width Platelet Count 91 L Mean Platelet 9.2 Volume Immature 8.600 H Granulocytes % Neutrophils % Lymphocytes % Monocytes % Eosinophils % Basophils % Nucleated Red 0.0 Blood Cells % Immature 0.310 H Granulocytes # Neutrophils # Lymphocytes # Monocytes # Eosinophils # Basophils # Nucleated Red Blood Cells # Sodium Level 134 L Potassium Level 4.1 Chloride Level 102 Carbon Dioxide 25 Level Anion Gap 7 Blood Urea 11 Nitrogen Creatinine 0.56 L Est Glomerular > 60 Filtrat Rate mL/min Glucose Level 176 Uric Acid 2.7 L Calcium Level 7.8 L Lactate 432 Dehydrogenase Lab Scanned BLOOD TRANSFUSIO Report N Bedside Glucose 160 Vancomycin Level 13.1 Trough Subjective 24 Hr Interval Summary Free Text/Dictation no s/s of distress. family at bedside. 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 intact, nl mental status, nl speech Skin: cdi Results Results 24hrs Laboratory Tests Test 03/29/19 12:39 03/29/19 17:52 03/29/19 20:41 03/30/19 03:21 Bedside Glucose 301 H 239 H 321 H 193 Test 03/30/19 04:28 03/30/19 07:06 03/30/19 08:03 03/30/19 09:57 White Blood Count 3.6 L Red Blood Count 2.65 L Hemoglobin 8.3 L Hematocrit 24.6 L Mean Corpuscular 92.8 Volume Mean Corpuscular 31.3 Hemoglobin Mean Corpuscular 33.7 Hemoglobin Concen t Red Cell 13.4 Distribution Width Platelet Count 91 L Mean Platelet 9.2 Volume Immature 8.600 H Granulocytes % Neutrophils % Lymphocytes % Monocytes % Eosinophils % Basophils % Nucleated Red 0.0 Blood Cells % Immature 0.310 H Granulocytes # Neutrophils # Lymphocytes # Monocytes # Eosinophils # Basophils # Nucleated Red Blood Cells # Sodium Level 134 L Potassium Level 4.1 Chloride Level 102 Carbon Dioxide 25 Level Anion Gap 7 Blood Urea 11 Nitrogen Creatinine 0.56 L Est Glomerular > 60 Filtrat Rate mL/min Glucose Level 176 Uric Acid 2.7 L Calcium Level 7.8 L Lactate 432 Dehydrogenase Lab Scanned BLOOD TRANSFUSIO Report N Bedside Glucose 160 Vancomycin Level 13.1 Trough Medications Medication Current Medications Insulin Aspart (Novolog Insulin Pen) NOVOLOG *MILD* ALGORITHM WITH MEALS BEDTIME SC Last administered on 03/30/19at 08:34; Admin Dose 1 UNIT; Start 03/23/19 at 18:00 IV Flush (NS 3 ml) 3 ml PER PROTOCOL IV ; Start 03/23/19 at 18:00 Ondansetron HCl (Zofran Inj) 4 mg Q6H PRN IV NAUSEA/VOMITING; Start 03/23/19 at 18:00 Acetaminophen (Tylenol Tab) 650 mg Q6H PRN PO .PAIN 1-3 OR TEMP Last administered on 03/29/19at 23:39; Admin Dose 650 MG; Start 03/23/19 at 18:00 Acetaminophen/ Hydrocodone Bitart ([place] (5/325)) 1 tab Q6H PRN PO .MOD PAIN 4- 6; Start 03/23/19 at 18:00 Polyethylene Glycol (Miralax) 17 gm BID PO Last administered on 03/30/19at 08:31; Admin Dose 17 GM; Start 03/23/19 at 21:00 Miscellaneous Information 1 ea NOTE XX ; Start 03/23/19 at 18:00 Glucose (Glutose) 15 gm Q15M PRN PO DECREASED GLUCOSE; Start 03/23/19 at 18:00 Glucose (Glutose) 22.5 gm Q15M PRN PO DECREASED GLUCOSE; Start 03/23/19 at 18:00 Dextrose (D50w Syringe) 25 ml Q15M PRN IV DECREASED GLUCOSE; Start 03/23/19 at 18:00 Dextrose (D50w Syringe) 50 ml Q15M PRN IV DECREASED GLUCOSE; Start 03/23/19 at 18:00 Glucagon (Glucagen) 1 mg Q15M PRN IM DECREASED GLUCOSE; Start 03/23/19 at 18:00 Glucose (Glutose) 15 gm Q15M PRN BUCCAL DECREASED GLUCOSE; Start 03/23/19 at 18:00 Hydralazine HCl (Apresoline) 10 mg Q4H PRN IV FOR SBP>170; Start 03/26/19 at 03:30 Insulin Glargine (Lantus) 15 units DAILY@2000 SC Last administered on 03/29/19at 20:45; Admin Dose 15 UNITS; Start 03/26/19 at 20:00 Albuterol/ Ipratropium (Duoneb) 3 ml Q2H RESP THERAPY PRN HHN sob; Start 03/26/19 at 12:30 Cefepime HCl 50 ml @ 100 mls/hr Q8 IVPB Last administered on 03/30/19at 06:28; Admin Dose 100 MLS/HR; Start 03/27/19 at 14:00 Furosemide (Lasix) 40 mg DAILY@0600 IV Last administered on 03/30/19at 06:27; Admin Dose 40 MG; Start 03/27/19 at 11:00 Lisinopril (Zestril) 10 mg BID PO Last administered on 03/30/19 08:32; Admin Dose 10 MG; Start 03/28/19 at 09:00 Carvedilol (Coreg) 6.25 mg BID PO Last administered on 03/30/19 08:32; Admin Dose 6.25 MG; Start 03/27/19 at 21:00 Vancomycin HCl (Vanco Iv Per Pharmacy) 1 ea Per Rx Protocol XX ; Start 03/27/19 at 22:00 Vancomycin HCl 1.25 gm/Sodium Chloride 250 ml @ 83.333 mls/ hr Q8H IVPB Last administered on 03/30/19at 12:02; Admin Dose 83.333 MLS/HR; Start 03/29/19 at 11:00 Allopurinol (Zyloprim) 300 mg DAILY PO Last administered on 03/30/19at 08:31; Admin Dose 300 MG; Start 03/29/19 at 15:30 Cytarabine 0.28 gm/Sodium Chloride 1,000 ml @ 41.667 mls/ hr Q24H IV ; Start 03/30/19 at 15:00; Stop 04/06/19 at 14:59 Daunorubicin HCl 140 mg/Sodium Chloride 100 ml @ 100 mls/hr Q24H IV ; Start 03/30/19 at 15:00; Stop 04/01/19 at 15:59 Ondansetron HCl 16 mg/ Dexamethasone 20 mg/Sodium Chloride 63 ml @ 252 mls/hr Q24H IV ; Start 03/30/19 at 14:30; Stop 04/01/19 at 14:44 Ondansetron HCl 8 mg/Sodium Chloride 54 ml @ 216 mls/hr Q8H PRN IV NAUSEA AND/OR VOMITING; Start 03/30/19 at 14:30; Stop 04/06/19 at 14:29 JAY REEVES NP Mar 30, 2019 12:34
--- NOTE | 2019-03-30 14:06 | CONS ---
Assessment/Plan Assessment/Plan Hospital Course (Demo Recall) ID PROGRESS NOTE CURRENT ABX: DAY # =>Vanco IV + Cefepime 03/30/198 03/30/19427 24H INTERVAL SUMMARY * VSS, NAD, afebrile so far today -> Yesterday TMAX 101.3 * Blood cultures and urine culture negative * s/p 03/26/[address] guided left iliac bone marrow aspiration and biopsy. DIAGNOSTIC IMAGING * 03/28/19 CXR: Chest x-ray revealed no acute pulmonary abnormality PHYSICAL EXAMINATION: GENERAL: VSS, NAD HEENT: AT, NC, NECK: Supple, CHEST: Rise symmetrical HEART: Pulse RRR ABDOMEN: Benign EXTREMITIES: Warm, dry SKIN: No rash, no diaphoresis ID ASSESSMENT 54 yo M admit with: 1. Ongoing fevers likely secondary to underlying malignancy and neutropenia 2. AML, newly diagnosed 3. Diabetes 4. Hypertension 5. Pancytopenia ABX ALLERGIES: KNDA INVASIVES: PIV CURRENT ABX: DAY # ID RECOMMENDATIONS/PLAN: 1. Continue current ABX 2. Neutropenic precautions when indicated . Consultation Date/Type/Reason Admit Date/Time Mar 23, 2019 at 16:10 Initial Consult Date 03/24/19 Requesting Provider: KATIE PACE NP Date/Time of Note DATE: 03/30/19 TIME: 14:05 Exam/Review of Systems Exam Vitals Vital Signs Date Temp Pulse Resp B/P (MAP) Pulse Ox O2 O2 Flow FiO2 Time Delivery Rate 03/30/19 98.3 84 20 138/83 96 Room Air 08:07 (101) Intake and Output 03/29/19 03/29/19 03/30/19 1515:00 23:00 07:00 IntakeIntake Total 1050 ml 840 ml 600 ml OutputOutput Total 1380 ml BalanceBalance 1050 ml 840 ml -780 ml Results Result Diagram: 03/30/1942703/30/19427 Results 24hrs Laboratory Tests Test 03/29/19 17:52 03/29/19 20:41 03/30/19 03:21 03/30/19 04:28 Bedside Glucose 239 H 321 H 193 White Blood Count 3.6 L Red Blood Count 2.65 L Hemoglobin 8.3 L Hematocrit 24.6 L Mean Corpuscular 92.8 Volume Mean Corpuscular 31.3 Hemoglobin Mean Corpuscular 33.7 Hemoglobin Concen t Red Cell 13.4 Distribution Width Platelet Count 91 L Mean Platelet 9.2 Volume Immature 8.600 H Granulocytes % Neutrophils % Lymphocytes % Monocytes % Eosinophils % Basophils % Nucleated Red 0.0 Blood Cells % Immature 0.310 H Granulocytes # Neutrophils # Lymphocytes # Monocytes # Eosinophils # Basophils # Nucleated Red Blood Cells # Sodium Level 134 L Potassium Level 4.1 Chloride Level 102 Carbon Dioxide 25 Level Anion Gap 7 Blood Urea 11 Nitrogen Creatinine 0.56 L Est Glomerular > 60 Filtrat Rate mL/min Glucose Level 176 Uric Acid 2.7 L Calcium Level 7.8 L Lactate 432 Dehydrogenase Test 03/30/19 07:06 03/30/19 08:03 03/30/19 09:57 03/30/19 12:46 Lab Scanned BLOOD TRANSFUSIO Report N Bedside Glucose 160 219 Vancomycin Level 13.1 Trough Medications Medication Current Medications Insulin Aspart (Novolog Insulin Pen) NOVOLOG *MILD* ALGORITHM WITH MEALS BEDTIME SC Last administered on 03/30/19at 13:19; Admin Dose 2 UNIT; Start 03/23/19 at 18:00 IV Flush (NS 3 ml) 3 ml PER PROTOCOL IV ; Start 03/23/19 at 18:00 Ondansetron HCl (Zofran Inj) 4 mg Q6H PRN IV NAUSEA/VOMITING; Start 03/23/19 at 18:00 Acetaminophen (Tylenol Tab) 650 mg Q6H PRN PO .PAIN 1-3 OR TEMP Last administered on 03/29/19at 23:39; Admin Dose 650 MG; Start 03/23/19 at 18:00 Acetaminophen/ Hydrocodone Bitart ([place] (5/325)) 1 tab Q6H PRN PO .MOD PAIN 4- 6; Start 03/23/19 at 18:00 Polyethylene Glycol (Miralax) 17 gm BID PO Last administered on 03/30/19at 08:31; Admin Dose 17 GM; Start 03/23/19 at 21:00 Miscellaneous Information 1 ea NOTE XX ; Start 03/23/19 at 18:00 Glucose (Glutose) 15 gm Q15M PRN PO DECREASED GLUCOSE; Start 03/23/19 at 18:00 Glucose (Glutose) 22.5 gm Q15M PRN PO DECREASED GLUCOSE; Start 03/23/19 at 18:00 Dextrose (D50w Syringe) 25 ml Q15M PRN IV DECREASED GLUCOSE; Start 03/23/19 at 18:00 Dextrose (D50w Syringe) 50 ml Q15M PRN IV DECREASED GLUCOSE; Start 03/23/19 at 18:00 Glucagon (Glucagen) 1 mg Q15M PRN IM DECREASED GLUCOSE; Start 03/23/19 at 18:00 Glucose (Glutose) 15 gm Q15M PRN BUCCAL DECREASED GLUCOSE; Start 03/23/19 at 18:00 Hydralazine HCl (Apresoline) 10 mg Q4H PRN IV FOR SBP>170; Start 03/26/19 at 03:30 Insulin Glargine (Lantus) 15 units DAILY@2000 SC Last administered on 03/29/19at 20:45; Admin Dose 15 UNITS; Start 03/26/19 at 20:00 Albuterol/ Ipratropium (Duoneb) 3 ml Q2H RESP THERAPY PRN HHN sob; Start 03/26/19 at 12:30 Cefepime HCl 50 ml @ 100 mls/hr Q8 IVPB Last administered on 03/30/19at 13:38; Admin Dose 100 MLS/HR; Start 03/27/19 at 14:00 Furosemide (Lasix) 40 mg DAILY@0600 IV Last administered on 03/30/19 06:27; Admin Dose 40 MG; Start 03/27/19 at 11:00 Lisinopril (Zestril) 10 mg BID PO Last administered on 03/30/19 08:32; Admin Dose 10 MG; Start 03/28/19 at 09:00 Carvedilol (Coreg) 6.25 mg BID PO Last administered on 03/30/19at 08:32; Admin Dose 6.25 MG; Start 03/27/19 at 21:00 Vancomycin HCl (Vanco Iv Per Pharmacy) 1 ea Per Rx Protocol XX ; Start 03/27/19 at 22:00 Vancomycin HCl 1.25 gm/Sodium Chloride 250 ml @ 83.333 mls/ hr Q8H IVPB Last administered on 03/30/19at 12:02; Admin Dose 83.333 MLS/HR; Start 03/29/19 at 11:00 Allopurinol (Zyloprim) 300 mg DAILY PO Last administered on 03/30/19 08:31; Admin Dose 300 MG; Start 03/29/19 at 15:30 Cytarabine 0.28 gm/Sodium Chloride 1,000 ml @ 41.667 mls/ hr Q24H IV ; Start 03/30/19 at 15:00; Stop 04/06/19 at 14:59 Daunorubicin HCl 140 mg/Sodium Chloride 100 ml @ 100 mls/hr Q24H IV ; Start 03/30/19 at 15:00; Stop 04/01/19 at 15:59 Ondansetron HCl 16 mg/ Dexamethasone 20 mg/Sodium Chloride 63 ml @ 252 mls/hr Q24H IV ; Start 03/30/19 at 14:30; Stop 04/01/19 at 14:44 Ondansetron HCl 8 mg/Sodium Chloride 54 ml @ 216 mls/hr Q8H PRN IV NAUSEA AND/OR VOMITING; Start 03/30/19 at 14:30; Stop 04/06/19 at 14:29 LIVIA OSMAN NP Mar 30, 2019 14:06
[2019-03-30] MEDS ORDERED: ONDANSETRON INJ 8 MG in SOD CHLORIDE 0.9% 50 ML IV PRN (14:30)
[2019-03-30] MEDS: ONDANSETRON INJ 16 MG, DEXAMETHASONE 4 MG/ML 20 MG in SOD CHLORIDE 0.9% 50 ML IV SCH (15:46)
[2019-03-30] MEDS: DAUNORUBICIN IV SCH (16:11)
[2019-03-30] MEDS: SOD CHLORIDE 0.9% IV SCH ×2 (16:11→17:56)
[2019-03-30] MEDS: CYTARABINE IV SCH (17:56)
[2019-03-30] MEDS: INSULIN GLARGINE [LANTus] (100 UNITS/ML) SYG SC SCH (20:51)
[2019-03-31 02:10] VITALS: BP 125/74; PULSE 87; RESP 18
[2019-03-31] MEDS: VANCOMYCIN HCL 1.25 GM in SOD CHLORIDE 0.9% 250 ML IVPB SCH ×3 (03:59→18:37)
[2019-03-31] MEDS: CEFEPIME 2GM/50 ML (PMX) 50 ML IVPB SCH ×3 (05:54→21:19)
[2019-03-31] MEDS: FUROSEMIDE 40 MG INJ IV SCH (05:54)
[2019-03-31 08:20] VITALS: BP 126/74; PULSE 78; RESP 18
[2019-03-31] MEDS: ALLOPURINOL 300 MG TAB PO SCH (08:25)
[2019-03-31] MEDS: POLYETHYLENE GLYCOL 17 GM PACKET PO SCH ×2 (08:25→21:07)
[2019-03-31] MEDS: INSULIN ASPART [NOVOLOG] 3 ML PEN SC SCH ×6 (08:27→21:05)
[2019-03-31] MEDS: LISINOPRIL 10 MG TAB PO SCH ×2 (08:27→21:07)
--- NOTE | 2019-03-31 11:26 | PN ---
Date/Time of Note Date/Time of Note DATE: 03/31/19 TIME: 11:24 Assessment/Plan VTE Prophylaxis Risk score [place]from [facility] [place] risk: 5 SCD applied (from [facility] [place] Yes Pharmacological prophylaxis: NA/contraindicated Pharm contraindication: other (pancytopenia) Lines/Catheters [facility] Type [facility]from [facility] [place] line still needed: Yes Urinary Cath still in place: No Assessment/Plan Hospital Course Assessment and plan 1. Febrile illness with pancytopenia and blast cells on manual differential. 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 - Antipyretics as needed for fever. - Monitor for infection - ID consult to follow -continue on abx -continue 7+3 regimen 2.Diabetes type 2. - HbA1c is 9.6 - Continue on insulin regimen. Will adjust prn 3. Hypertension. - Continue antihypertensives. 4. dyspnea - improved - lasix prn 5. 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 Pancytopenia - secondary to AML - transfuse blood products prn Disposition and plan. daily cbc monitoring. transfuse blood products prn. chemo per oncologist. antiemetics prn. continue current tx Discussed plan of care with Dr. Abreu Result Diagram: 03/31/19 0414 03/31/194 Results 24hrs Laboratory Tests Test 03/30/19 12:46 03/30/19 17:56 03/30/19 20:47 03/31/19 02:05 Bedside Glucose 219 213 317 H 256 H Test 03/31/19 04:14 03/31/19 08:23 White Blood Count 2.1 #L Red Blood Count 3.19 #L Hemoglobin 9.9 L Hematocrit 29.8 #L Mean Corpuscular 93.4 Volume Mean Corpuscular 31.0 Hemoglobin Mean Corpuscular 33.2 Hemoglobin Concent Red Cell 13.8 Distribution Width Platelet Count 88 L Mean Platelet Volume 9.9 Immature 16.500 H Granulocytes % Neutrophils % Segmented 24 L Neutrophils % (Manual) Band Neutrophils % 16 H (Manual) Lymphocytes % Lymphocytes % 26 (Manual) Monocytes % Monocytes % (Manual) 10 Eosinophils % Basophils % Myelocytes % 3 H (Manual) Promyelocytes % 2 H (Manual) Blast Cells % 19.0 H (Manual) Nucleated Red Blood 0.0 Cells % Immature 0.350 H Granulocytes # Neutrophils # Neutrophils # 0.5 L (Manual) Band Neutrophils # 0.3 Lymphocytes (Manual) 0.5 L Lymphocytes # Monocytes # Monocytes # (Manual) 0.2 L Eosinophils # Basophils # Myelocytes # 0.0 Promyelocytes # 0.0 Nucleated Red Blood Cells # Platelet Estimate DECREASED Giant Platelets 3 H Poikilocytosis 2+ Sodium Level 139 Potassium Level 4.4 Chloride Level 103 Carbon Dioxide Level 23 Anion Gap 13 Blood Urea Nitrogen 14 Creatinine 0.61 Est Glomerular > 60 Filtrat Rate mL/min Glucose Level 260 H Calcium Level 8.4 Bedside Glucose 223 H Subjective 24 Hr Interval Summary Free Text/Dictation comfortable at present. denies any nausea. 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 TRUCKER II-XII intact, nl mental status, nl speech Skin: cdi Results Results 24hrs Laboratory Tests Test 03/30/19 12:46 03/30/19 17:56 03/30/19 20:47 03/31/19 02:05 Bedside Glucose 219 213 317 H 256 H Test 03/31/19 04:14 03/31/19 08:23 White Blood Count 2.1 #L Red Blood Count 3.19 #L Hemoglobin 9.9 L Hematocrit 29.8 #L Mean Corpuscular 93.4 Volume Mean Corpuscular 31.0 Hemoglobin Mean Corpuscular 33.2 Hemoglobin Concent Red Cell 13.8 Distribution Width Platelet Count 88 L Mean Platelet Volume 9.9 Immature 16.500 H Granulocytes % Neutrophils % Segmented 24 L Neutrophils % (Manual) Band Neutrophils % 16 H (Manual) Lymphocytes % Lymphocytes % 26 (Manual) Monocytes % Monocytes % (Manual) 10 Eosinophils % Basophils % Myelocytes % 3 H (Manual) Promyelocytes % 2 H (Manual) Blast Cells % 19.0 H (Manual) Nucleated Red Blood 0.0 Cells % Immature 0.350 H Granulocytes # Neutrophils # Neutrophils # 0.5 L (Manual) Band Neutrophils # 0.3 Lymphocytes (Manual) 0.5 L Lymphocytes # Monocytes # Monocytes # (Manual) 0.2 L Eosinophils # Basophils # Myelocytes # 0.0 Promyelocytes # 0.0 Nucleated Red Blood Cells # Platelet Estimate DECREASED Giant Platelets 3 H Poikilocytosis 2+ Sodium Level 139 Potassium Level 4.4 Chloride Level 103 Carbon Dioxide Level 23 Anion Gap 13 Blood Urea Nitrogen 14 Creatinine 0.61 Est Glomerular > 60 Filtrat Rate mL/min Glucose Level 260 H Calcium Level 8.4 Bedside Glucose 223 H Medications Medication Current Medications Insulin Aspart (Novolog Insulin Pen) NOVOLOG *MILD* ALGORITHM WITH MEALS BEDTIME SC Last administered on 03/31/19at 08:27; Admin Dose 3 UNIT; Start 03/23/19 at 18:00 IV Flush (NS 3 ml) 3 ml PER PROTOCOL IV ; Start 03/23/19 at 18:00 Ondansetron HCl (Zofran Inj) 4 mg Q6H PRN IV NAUSEA/VOMITING; Start 03/23/19 at 18:00 Acetaminophen (Tylenol Tab) 650 mg Q6H PRN PO .PAIN 1-3 OR TEMP Last administered on 03/29/19at 23:39; Admin Dose 650 MG; Start 03/23/19 at 18:00 Acetaminophen/ Hydrocodone Bitart ([place] (5/325)) 1 tab Q6H PRN PO .MOD PAIN 4- 6; Start 03/23/19 at 18:00 Polyethylene Glycol (Miralax) 17 gm BID PO Last administered on 03/30/19at 08:31; Admin Dose 17 GM; Start 03/23/19 at 21:00 Miscellaneous Information 1 ea NOTE XX ; Start 03/23/19 at 18:00 Glucose (Glutose) 15 gm Q15M PRN PO DECREASED GLUCOSE; Start 03/23/19 at 18:00 Glucose (Glutose) 22.5 gm Q15M PRN PO DECREASED GLUCOSE; Start 03/23/19 at 18:00 Dextrose (D50w Syringe) 25 ml Q15M PRN IV DECREASED GLUCOSE; Start 03/23/19 at 18:00 Dextrose (D50w Syringe) 50 ml Q15M PRN IV DECREASED GLUCOSE; Start 03/23/19 at 18:00 Glucagon (Glucagen) 1 mg Q15M PRN IM DECREASED GLUCOSE; Start 03/23/19 at 18:00 Glucose (Glutose) 15 gm Q15M PRN BUCCAL DECREASED GLUCOSE; Start 03/23/19 at 18:00 Hydralazine HCl (Apresoline) 10 mg Q4H PRN IV FOR SBP>170; Start 03/26/19 at 03:30 Albuterol/ Ipratropium (Duoneb) 3 ml Q2H RESP THERAPY PRN HHN sob; Start 03/26/19 at 12:30 Cefepime HCl 50 ml @ 100 mls/hr Q8 IVPB Last administered on 03/31/19 05:54; Admin Dose 100 MLS/HR; Start 03/27/19 at 14:00 Furosemide (Lasix) 40 mg DAILY@0600 IV Last administered on 03/31/19 05:54; Admin Dose 40 MG; Start 03/27/19 at 11:00 Lisinopril (Zestril) 10 mg BID PO Last administered on 03/31/19 08:27; Admin Dose 10 MG; Start 03/28/19 at 09:00 Carvedilol (Coreg) 6.25 mg BID PO Last administered on 03/31/19 08:25; Admin Dose 6.25 MG; Start 03/27/19 at 21:00 Vancomycin HCl (Vanco Iv Per Pharmacy) 1 ea Per Rx Protocol XX ; Start 03/27/19 at 22:00 Vancomycin HCl 1.25 gm/Sodium Chloride 250 ml @ 83.333 mls/ hr Q8H IVPB Last administered on 03/31/19at 10:46; Admin Dose 83.333 MLS/HR; Start 03/29/19 at 11:00 Allopurinol (Zyloprim) 300 mg DAILY PO Last administered on 03/31/19 08:25; Admin Dose 300 MG; Start 03/29/19 at 15:30 Cytarabine 0.28 gm/Sodium Chloride 1,000 ml @ 41.667 mls/ hr Q24H IV Last administered on 03/30/19at 17:56; Admin Dose 41.667 MLS/HR; Start 03/30/19 at 15:00; Stop 04/06/19 at 14:59 Daunorubicin HCl 140 mg/Sodium Chloride 100 ml @ 100 mls/hr Q24H IV Last administered on 03/30/19at 16:11; Admin Dose 100 MLS/HR; Start 03/30/19 at 15:00; Stop 04/01/19 at 15:59 Ondansetron HCl 16 mg/ Dexamethasone 20 mg/Sodium Chloride 63 ml @ 252 mls/hr Q24H IV Last administered on 03/30/19at 15:46; Admin Dose 252 MLS/HR; Start 03/30/19 at 14:30; Stop 04/01/19 at 14:44 Ondansetron HCl 8 mg/Sodium Chloride 54 ml @ 216 mls/hr Q8H PRN IV NAUSEA AND/OR VOMITING; Start 03/30/19 at 14:30; Stop 04/06/19 at 14:29 Insulin Glargine (Lantus) 20 units DAILY@2000 SC ; Start 03/31/19 at 20:00; Status UNV Insulin Aspart (Novolog Insulin Pen) 4 unit WITH MEALS SC ; Start 03/31/19 at 11:40; Status UNV JAY REEVES NP Mar 31, 2019 11:26
[2019-03-31 15:23] VITALS: BP 149/93; PULSE 83; RESP 18
--- NOTE | 2019-03-31 15:48 | PN ---
Date/Time of Note Date/Time of Note DATE: 03/30/19 TIME: 15:47 Assessment/Plan VTE Prophylaxis [place] [facility] [place] risk: 5 SCD applied [place] [facility] [place] SCD contraindicated: other Pharmacological prophylaxis: NA/contraindicated Pharm contraindication: low risk/ambulating Lines/Catheters [facility] Type [facility]from [facility] [place] line still needed: Yes Urinary Cath still in place: No Assessment/Plan Assessment/Plan ASSESSMENT: Acute myelogenous leukemia PLAN: Started on chemotherapy with a 7-day infusion of cytarabine and 3 days of daunorubicin. Continue patient on allopurinol 300 mg daily. Result Diagram: 03/31/19 0414 03/31/194 Results 24hrs Laboratory Tests Test 03/30/19 17:56 03/30/19 20:47 03/31/19 02:05 03/31/19 04:14 Bedside Glucose 213 317 H 256 H White Blood Count 2.1 #L Red Blood Count 3.19 #L Hemoglobin 9.9 L Hematocrit 29.8 #L Mean Corpuscular 93.4 Volume Mean Corpuscular 31.0 Hemoglobin Mean Corpuscular 33.2 Hemoglobin Concent Red Cell 13.8 Distribution Width Platelet Count 88 L Mean Platelet Volume 9.9 Immature 16.500 H Granulocytes % Neutrophils % Segmented 24 L Neutrophils % (Manual) Band Neutrophils % 16 H (Manual) Lymphocytes % Lymphocytes % 26 (Manual) Monocytes % Monocytes % (Manual) 10 Eosinophils % Basophils % Myelocytes % 3 H (Manual) Promyelocytes % 2 H (Manual) Blast Cells % 19.0 H (Manual) Nucleated Red Blood 0.0 Cells % Immature 0.350 H Granulocytes # Neutrophils # Neutrophils # 0.5 L (Manual) Band Neutrophils # 0.3 Lymphocytes (Manual) 0.5 L Lymphocytes # Monocytes # Monocytes # (Manual) 0.2 L Eosinophils # Basophils # Myelocytes # 0.0 Promyelocytes # 0.0 Nucleated Red Blood Cells # Platelet Estimate DECREASED Giant Platelets 3 H Poikilocytosis 2+ Sodium Level 139 Potassium Level 4.4 Chloride Level 103 Carbon Dioxide Level 23 Anion Gap 13 Blood Urea Nitrogen 14 Creatinine 0.61 Est Glomerular > 60 Filtrat Rate mL/min Glucose Level 260 H Calcium Level 8.4 Test 03/31/19 08:23 Bedside Glucose 223 H Subjective 24 Hr Interval Summary Constitutional: no complaints, improved Exam/Review of Systems Exam Vitals Vital Signs Date Temp Pulse Resp B/P (MAP) Pulse Ox O2 O2 Flow FiO2 Time Delivery Rate 03/31/19 98.4 78 18 126/74 98 Room Air 08:20 (91) Intake and Output 03/30/19 03/30/19 03/31/19 1515:00 23:00 07:00 IntakeIntake Total 1210 ml 1534.6 ml 1099.2 ml OutputOutput Total 600 ml 900 ml BalanceBalance 610 ml 634.6 ml 1099.2 ml Constitutional: alert, oriented Eyes: nl conjunctiva, EOMI Neck: supple, non-tender Respiratory: clear to auscultation, normal air movement Cardiovascular: regular rate and rhythm, nl pulses Gastrointestinal: soft, non-tender Results Results 24hrs Laboratory Tests Test 03/30/19 17:56 03/30/19 20:47 03/31/19 02:05 03/31/19 04:14 Bedside Glucose 213 317 H 256 H White Blood Count 2.1 #L Red Blood Count 3.19 #L Hemoglobin 9.9 L Hematocrit 29.8 #L Mean Corpuscular 93.4 Volume Mean Corpuscular 31.0 Hemoglobin Mean Corpuscular 33.2 Hemoglobin Concent Red Cell 13.8 Distribution Width Platelet Count 88 L Mean Platelet Volume 9.9 Immature 16.500 H Granulocytes % Neutrophils % Segmented 24 L Neutrophils % (Manual) Band Neutrophils % 16 H (Manual) Lymphocytes % Lymphocytes % 26 (Manual) Monocytes % Monocytes % (Manual) 10 Eosinophils % Basophils % Myelocytes % 3 H (Manual) Promyelocytes % 2 H (Manual) Blast Cells % 19.0 H (Manual) Nucleated Red Blood 0.0 Cells % Immature 0.350 H Granulocytes # Neutrophils # Neutrophils # 0.5 L (Manual) Band Neutrophils # 0.3 Lymphocytes (Manual) 0.5 L Lymphocytes # Monocytes # Monocytes # (Manual) 0.2 L Eosinophils # Basophils # Myelocytes # 0.0 Promyelocytes # 0.0 Nucleated Red Blood Cells # Platelet Estimate DECREASED Giant Platelets 3 H Poikilocytosis 2+ Sodium Level 139 Potassium Level 4.4 Chloride Level 103 Carbon Dioxide Level 23 Anion Gap 13 Blood Urea Nitrogen 14 Creatinine 0.61 Est Glomerular > 60 Filtrat Rate mL/min Glucose Level 260 H Calcium Level 8.4 Test 03/31/19 08:23 Bedside Glucose 223 H Medications Medication Current Medications Insulin Aspart (Novolog Insulin Pen) NOVOLOG *MILD* ALGORITHM WITH MEALS BEDTIME SC Last administered on 03/31/19at 12:33; Admin Dose 4 UNIT; Start 03/23/19 at 18:00 IV Flush (NS 3 ml) 3 ml PER PROTOCOL IV ; Start 03/23/19 at 18:00 Ondansetron HCl (Zofran Inj) 4 mg Q6H PRN IV NAUSEA/VOMITING; Start 03/23/19 at 18:00 Acetaminophen (Tylenol Tab) 650 mg Q6H PRN PO .PAIN 1-3 OR TEMP Last administered on 03/29/19at 23:39; Admin Dose 650 MG; Start 03/23/19 at 18:00 Acetaminophen/ Hydrocodone Bitart ([place] (5/325)) 1 tab Q6H PRN PO .MOD PAIN 4- 6; Start 03/23/19 at 18:00 Polyethylene Glycol (Miralax) 17 gm BID PO Last administered on 03/30/19at 08:31; Admin Dose 17 GM; Start 03/23/19 at 21:00 Miscellaneous Information 1 ea NOTE XX ; Start 03/23/19 at 18:00 Glucose (Glutose) 15 gm Q15M PRN PO DECREASED GLUCOSE; Start 03/23/19 at 18:00 Glucose (Glutose) 22.5 gm Q15M PRN PO DECREASED GLUCOSE; Start 03/23/19 at 18:00 Dextrose (D50w Syringe) 25 ml Q15M PRN IV DECREASED GLUCOSE; Start 03/23/19 at 18:00 Dextrose (D50w Syringe) 50 ml Q15M PRN IV DECREASED GLUCOSE; Start 03/23/19 at 18:00 Glucagon (Glucagen) 1 mg Q15M PRN IM DECREASED GLUCOSE; Start 03/23/19 at 18:00 Glucose (Glutose) 15 gm Q15M PRN BUCCAL DECREASED GLUCOSE; Start 03/23/19 at 18:00 Hydralazine HCl (Apresoline) 10 mg Q4H PRN IV FOR SBP>170; Start 03/26/19 at 03:30 Albuterol/ Ipratropium (Duoneb) 3 ml Q2H RESP THERAPY PRN HHN sob; Start 03/26/19 at 12:30 Cefepime HCl 50 ml @ 100 mls/hr Q8 IVPB Last administered on 03/31/19at 14:04; Admin Dose 100 MLS/HR; Start 03/27/19 at 14:00 Furosemide (Lasix) 40 mg DAILY@0600 IV Last administered on 03/31/19at 05:54; Admin Dose 40 MG; Start 03/27/19 at 11:00 Lisinopril (Zestril) 10 mg BID PO Last administered on 03/31/19at 08:27; Admin Dose 10 MG; Start 03/28/19 at 09:00 Carvedilol (Coreg) 6.25 mg BID PO Last administered on 03/31/19 08:25; Admin Dose 6.25 MG; Start 03/27/19 at 21:00 Vancomycin HCl (Vanco Iv Per Pharmacy) 1 ea Per Rx Protocol XX ; Start 03/27/19 at 22:00 Vancomycin HCl 1.25 gm/Sodium Chloride 250 ml @ 83.333 mls/ hr Q8H IVPB Last administered on 03/31/19at 10:46; Admin Dose 83.333 MLS/HR; Start 03/29/19 at 11:00 Allopurinol (Zyloprim) 300 mg DAILY PO Last administered on 03/31/19 08:25; Admin Dose 300 MG; Start 03/29/19 at 15:30 Cytarabine 0.28 gm/Sodium Chloride 1,000 ml @ 41.667 mls/ hr Q24H IV Last administered on 03/30/19at 17:56; Admin Dose 41.667 MLS/HR; Start 03/30/19 at 15:00; Stop 04/06/19 at 14:59 Daunorubicin HCl 140 mg/Sodium Chloride 100 ml @ 100 mls/hr Q24H IV Last administered on 03/30/19at 16:11; Admin Dose 100 MLS/HR; Start 03/30/19 at 15:00; Stop 04/01/19 at 15:59 Ondansetron HCl 16 mg/ Dexamethasone 20 mg/Sodium Chloride 63 ml @ 252 mls/hr Q24H IV Last administered on 03/30/19at 15:46; Admin Dose 252 MLS/HR; Start 03/30/19 at 14:30; Stop 04/01/19 at 14:44 Ondansetron HCl 8 mg/Sodium Chloride 54 ml @ 216 mls/hr Q8H PRN IV NAUSEA AND/OR VOMITING; Start 03/30/19 at 14:30; Stop 04/06/19 at 14:29 Insulin Glargine (Lantus) 20 units DAILY@2000 SC ; Start 03/31/19 at 20:00 Insulin Aspart (Novolog Insulin Pen) 4 unit WITH MEALS SC Last administered on 03/31/19at 12:34; Admin Dose 4 UNIT; Start 03/31/19 at 11:40 Miscellaneous Information (*Rx Drug Level Order Reminder*) VANCO TR 1000 ONCE XX ; Start 04/01/19 at 10:00; Stop 04/01/19 at 10:01 ALBERTO TENORIO MD Mar 31, 2019 15:48
--- NOTE | 2019-03-31 15:52 | PN ---
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 Patient started on standard induction chemotherapy "7+3" Continue to monitor CBC with prophylactic transfusion as needed Monitor closely for fever, although patient is already on vancomycin and cefepime Result Diagram: 03/31/19 0414 03/31/19 0414 Results 24hrs Laboratory Tests Test 03/30/19 17:56 03/30/19 20:47 03/31/19 02:05 03/31/19 04:14 Bedside Glucose 213 317 H 256 H White Blood Count 2.1 #L Red Blood Count 3.19 #L Hemoglobin 9.9 L Hematocrit 29.8 #L Mean Corpuscular 93.4 Volume Mean Corpuscular 31.0 Hemoglobin Mean Corpuscular 33.2 Hemoglobin Concent Red Cell 13.8 Distribution Width Platelet Count 88 L Mean Platelet Volume 9.9 Immature 16.500 H Granulocytes % Neutrophils % Segmented 24 L Neutrophils % (Manual) Band Neutrophils % 16 H (Manual) Lymphocytes % Lymphocytes % 26 (Manual) Monocytes % Monocytes % (Manual) 10 Eosinophils % Basophils % Myelocytes % 3 H (Manual) Promyelocytes % 2 H (Manual) Blast Cells % 19.0 H (Manual) Nucleated Red Blood 0.0 Cells % Immature 0.350 H Granulocytes # Neutrophils # Neutrophils # 0.5 L (Manual) Band Neutrophils # 0.3 Lymphocytes (Manual) 0.5 L Lymphocytes # Monocytes # Monocytes # (Manual) 0.2 L Eosinophils # Basophils # Myelocytes # 0.0 Promyelocytes # 0.0 Nucleated Red Blood Cells # Platelet Estimate DECREASED Giant Platelets 3 H Poikilocytosis 2+ Sodium Level 139 Potassium Level 4.4 Chloride Level 103 Carbon Dioxide Level 23 Anion Gap 13 Blood Urea Nitrogen 14 Creatinine 0.61 Est Glomerular > 60 Filtrat Rate mL/min Glucose Level 260 H Calcium Level 8.4 Test 03/31/19 08:23 Bedside Glucose 223 H Subjective 24 Hr Interval Summary Free Text/Dictation Patient without complaint. Denies any shortness of breath imbalance Exam/Review of Systems Exam Vitals Vital Signs Date Temp Pulse Resp B/P (MAP) Pulse Ox O2 O2 Flow FiO2 Time Delivery Rate 03/31/19 98.4 78 18 126/74 98 Room Air 08:20 (91) Intake and Output 03/30/19 03/30/19 03/31/19 1515:00 23:00 07:00 IntakeIntake Total 1210 ml 1534.6 ml 1099.2 ml OutputOutput Total 600 ml 900 ml BalanceBalance 610 ml 634.6 ml 1099.2 ml Constitutional: alert, oriented Eyes: nl conjunctiva, EOMI Neck: supple, non-tender Respiratory: clear to auscultation, normal air movement Cardiovascular: regular rate and rhythm, nl pulses Gastrointestinal: soft, non-tender Results Results 24hrs Laboratory Tests Test 03/30/19 17:56 03/30/19 20:47 03/31/19 02:05 03/31/19 04:14 Bedside Glucose 213 317 H 256 H White Blood Count 2.1 #L Red Blood Count 3.19 #L Hemoglobin 9.9 L Hematocrit 29.8 #L Mean Corpuscular 93.4 Volume Mean Corpuscular 31.0 Hemoglobin Mean Corpuscular 33.2 Hemoglobin Concent Red Cell 13.8 Distribution Width Platelet Count 88 L Mean Platelet Volume 9.9 Immature 16.500 H Granulocytes % Neutrophils % Segmented 24 L Neutrophils % (Manual) Band Neutrophils % 16 H (Manual) Lymphocytes % Lymphocytes % 26 (Manual) Monocytes % Monocytes % (Manual) 10 Eosinophils % Basophils % Myelocytes % 3 H (Manual) Promyelocytes % 2 H (Manual) Blast Cells % 19.0 H (Manual) Nucleated Red Blood 0.0 Cells % Immature 0.350 H Granulocytes # Neutrophils # Neutrophils # 0.5 L (Manual) Band Neutrophils # 0.3 Lymphocytes (Manual) 0.5 L Lymphocytes # Monocytes # Monocytes # (Manual) 0.2 L Eosinophils # Basophils # Myelocytes # 0.0 Promyelocytes # 0.0 Nucleated Red Blood Cells # Platelet Estimate DECREASED Giant Platelets 3 H Poikilocytosis 2+ Sodium Level 139 Potassium Level 4.4 Chloride Level 103 Carbon Dioxide Level 23 Anion Gap 13 Blood Urea Nitrogen 14 Creatinine 0.61 Est Glomerular > 60 Filtrat Rate mL/min Glucose Level 260 H Calcium Level 8.4 Test 03/31/19 08:23 Bedside Glucose 223 H Medications Medication Current Medications Insulin Aspart (Novolog Insulin Pen) NOVOLOG *MILD* ALGORITHM WITH MEALS BEDTIME SC Last administered on 03/31/19at 12:33; Admin Dose 4 UNIT; Start 03/23/19 at 18:00 IV Flush (NS 3 ml) 3 ml PER PROTOCOL IV ; Start 03/23/19 at 18:00 Ondansetron HCl (Zofran Inj) 4 mg Q6H PRN IV NAUSEA/VOMITING; Start 03/23/19 at 18:00 Acetaminophen (Tylenol Tab) 650 mg Q6H PRN PO .PAIN 1-3 OR TEMP Last administered on 03/29/19at 23:39; Admin Dose 650 MG; Start 03/23/19 at 18:00 Acetaminophen/ Hydrocodone Bitart ([place] (5/325)) 1 tab Q6H PRN PO .MOD PAIN 4- 6; Start 03/23/19 at 18:00 Polyethylene Glycol (Miralax) 17 gm BID PO Last administered on 03/30/19at 08:31; Admin Dose 17 GM; Start 03/23/19 at 21:00 Miscellaneous Information 1 ea NOTE XX ; Start 03/23/19 at 18:00 Glucose (Glutose) 15 gm Q15M PRN PO DECREASED GLUCOSE; Start 03/23/19 at 18:00 Glucose (Glutose) 22.5 gm Q15M PRN PO DECREASED GLUCOSE; Start 03/23/19 at 18:00 Dextrose (D50w Syringe) 25 ml Q15M PRN IV DECREASED GLUCOSE; Start 03/23/19 at 18:00 Dextrose (D50w Syringe) 50 ml Q15M PRN IV DECREASED GLUCOSE; Start 03/23/19 at 18:00 Glucagon (Glucagen) 1 mg Q15M PRN IM DECREASED GLUCOSE; Start 03/23/19 at 18:00 Glucose (Glutose) 15 gm Q15M PRN BUCCAL DECREASED GLUCOSE; Start 03/23/19 at 18:00 Hydralazine HCl (Apresoline) 10 mg Q4H PRN IV FOR SBP>170; Start 03/26/19 at 03:30 Albuterol/ Ipratropium (Duoneb) 3 ml Q2H RESP THERAPY PRN HHN sob; Start 03/26/19 at 12:30 Cefepime HCl 50 ml @ 100 mls/hr Q8 IVPB Last administered on 03/31/19 14:04; Admin Dose 100 MLS/HR; Start 03/27/19 at 14:00 Furosemide (Lasix) 40 mg DAILY@0600 IV Last administered on 03/31/19 05:54; Admin Dose 40 MG; Start 03/27/19 at 11:00 Lisinopril (Zestril) 10 mg BID PO Last administered on 03/31/19 08:27; Admin Dose 10 MG; Start 03/28/19 at 09:00 Carvedilol (Coreg) 6.25 mg BID PO Last administered on 03/31/19 08:25; Admin Dose 6.25 MG; Start 03/27/19 at 21:00 Vancomycin HCl (Vanco Iv Per Pharmacy) 1 ea Per Rx Protocol XX ; Start 03/27/19 at 22:00 Vancomycin HCl 1.25 gm/Sodium Chloride 250 ml @ 83.333 mls/ hr Q8H IVPB Last administered on 03/31/19at 10:46; Admin Dose 83.333 MLS/HR; Start 03/29/19 at 11:00 Allopurinol (Zyloprim) 300 mg DAILY PO Last administered on 03/31/19 08:25; Admin Dose 300 MG; Start 03/29/19 at 15:30 Cytarabine 0.28 gm/Sodium Chloride 1,000 ml @ 41.667 mls/ hr Q24H IV Last administered on 03/30/19at 17:56; Admin Dose 41.667 MLS/HR; Start 03/30/19 at 15:00; Stop 04/06/19 at 14:59 Daunorubicin HCl 140 mg/Sodium Chloride 100 ml @ 100 mls/hr Q24H IV Last administered on 03/30/19at 16:11; Admin Dose 100 MLS/HR; Start 03/30/19 at 15:00; Stop 04/01/19 at 15:59 Ondansetron HCl 16 mg/ Dexamethasone 20 mg/Sodium Chloride 63 ml @ 252 mls/hr Q24H IV Last administered on 03/30/19 15:46; Admin Dose 252 MLS/HR; Start 03/30/19 at 14:30; Stop 04/01/19 at 14:44 Ondansetron HCl 8 mg/Sodium Chloride 54 ml @ 216 mls/hr Q8H PRN IV NAUSEA AND/OR VOMITING; Start 03/30/19 at 14:30; Stop 04/06/19 at 14:29 Insulin Glargine (Lantus) 20 units DAILY@2000 SC ; Start 03/31/19 at 20:00 Insulin Aspart (Novolog Insulin Pen) 4 unit WITH MEALS SC Last administered on 03/31/19at 12:34; Admin Dose 4 UNIT; Start 03/31/19 at 11:40 Miscellaneous Information (*Rx Drug Level Order Reminder*) VANCO TR 1000 ONCE XX ; Start 04/01/19 at 10:00; Stop 04/01/19 at 10:01 ALBERTO TENORIO MD Mar 31, 2019 15:52
[2019-03-31] MEDS: ONDANSETRON INJ 16 MG, DEXAMETHASONE 4 MG/ML 20 MG in SOD CHLORIDE 0.9% 50 ML IV SCH (16:24)
[2019-03-31 16:30] VITALS: BP 154/91; PULSE 82; RESP 18
[2019-03-31] MEDS: SOD CHLORIDE 0.9% IV SCH ×2 (16:35→18:02)
[2019-03-31] MEDS: DAUNORUBICIN IV SCH (16:35)
[2019-03-31 16:55] VITALS: BP 153/90; PULSE 79; RESP 18
[2019-03-31] MEDS: CYTARABINE IV SCH (18:02)
--- NOTE | 2019-03-31 18:38 | CONS ---
Assessment/Plan Assessment/Plan Hospital Course (Demo Recall) ID PROGRESS NOTE CURRENT ABX: DAY # =>Vanco IV + Cefepime 24H INTERVAL SUMMARY * A/A/O, VSS, NAD, AFEBRILE X > 48H -- feeling better * Blood cultures and urine culture negative * s/p 03/26/[address] guided left iliac bone marrow aspiration and biopsy. DIAGNOSTIC IMAGING * 03/28/19 CXR: Chest x-ray revealed no acute pulmonary abnormality PHYSICAL EXAMINATION: GENERAL: VSS, NAD HEENT: AT, NC, NECK: Supple, CHEST: Rise symmetrical HEART: Pulse RRR ABDOMEN: Benign EXTREMITIES: Warm, dry SKIN: No rash, no diaphoresis ID ASSESSMENT 54 yo M admit with: 1. Ongoing fevers likely secondary to underlying malignancy and neutropenia 2. AML, newly diagnosed 3. Diabetes 4. Hypertension 5. Pancytopenia ABX ALLERGIES: KNDA INVASIVES: PIV CURRENT ABX: DAY # ID RECOMMENDATIONS/PLAN: 1. Continue current ABX 2. Neutropenic precautions when indicated . Consultation Date/Type/Reason Admit Date/Time Mar 23, 2019 at 16:10 Initial Consult Date 03/24/19 Requesting Provider: KATIE PACE NP Date/Time of Note DATE: 03/31/19 TIME: 18:36 Exam/Review of Systems Exam Vitals Vital Signs Date Temp Pulse Resp B/P (MAP) Pulse Ox O2 O2 Flow FiO2 Time Delivery Rate 03/31/19 79 18 153/90 99 Room Air 16:55 (111) 03/31/19 98.2 16:30 Intake and Output 03/30/19 03/30/19 03/31/19 1515:00 23:00 07:00 IntakeIntake Total 1210 ml 1534.6 ml 1099.2 ml OutputOutput Total 600 ml 900 ml BalanceBalance 610 ml 634.6 ml 1099.2 ml Results Result Diagram: 03/31/19 0414 03/31/19 0414 Results 24hrs Laboratory Tests Test 03/30/19 20:47 03/31/19 02:05 03/31/19 04:14 03/31/19 08:23 Bedside Glucose 317 H 256 H 223 H White Blood Count 2.1 #L Red Blood Count 3.19 #L Hemoglobin 9.9 L Hematocrit 29.8 #L Mean Corpuscular 93.4 Volume Mean Corpuscular 31.0 Hemoglobin Mean Corpuscular 33.2 Hemoglobin Concent Red Cell 13.8 Distribution Width Platelet Count 88 L Mean Platelet Volume 9.9 Immature 16.500 H Granulocytes % Neutrophils % Segmented 24 L Neutrophils % (Manual) Band Neutrophils % 16 H (Manual) Lymphocytes % Lymphocytes % 26 (Manual) Monocytes % Monocytes % (Manual) 10 Eosinophils % Basophils % Myelocytes % 3 H (Manual) Promyelocytes % 2 H (Manual) Blast Cells % 19.0 H (Manual) Nucleated Red Blood 0.0 Cells % Immature 0.350 H Granulocytes # Neutrophils # Neutrophils # 0.5 L (Manual) Band Neutrophils # 0.3 Lymphocytes (Manual) 0.5 L Lymphocytes # Monocytes # Monocytes # (Manual) 0.2 L Eosinophils # Basophils # Myelocytes # 0.0 Promyelocytes # 0.0 Nucleated Red Blood Cells # Platelet Estimate DECREASED Giant Platelets 3 H Poikilocytosis 2+ Sodium Level 139 Potassium Level 4.4 Chloride Level 103 Carbon Dioxide Level 23 Anion Gap 13 Blood Urea Nitrogen 14 Creatinine 0.61 Est Glomerular > 60 Filtrat Rate mL/min Glucose Level 260 H Calcium Level 8.4 Test 03/31/19 18:03 Bedside Glucose 210 Medications Medication Current Medications Insulin Aspart (Novolog Insulin Pen) NOVOLOG *MILD* ALGORITHM WITH MEALS BEDTIME SC Last administered on 03/31/19at 18:04; Admin Dose 2 UNIT; Start 03/23/19 at 18:00 IV Flush (NS 3 ml) 3 ml PER PROTOCOL IV ; Start 03/23/19 at 18:00 Ondansetron HCl (Zofran Inj) 4 mg Q6H PRN IV NAUSEA/VOMITING; Start 03/23/19 at 18:00 Acetaminophen (Tylenol Tab) 650 mg Q6H PRN PO .PAIN 1-3 OR TEMP Last administered on 03/29/19at 23:39; Admin Dose 650 MG; Start 03/23/19 at 18:00 Acetaminophen/ Hydrocodone Bitart ([place] (5/325)) 1 tab Q6H PRN PO .MOD PAIN 4- 6; Start 03/23/19 at 18:00 Polyethylene Glycol (Miralax) 17 gm BID PO Last administered on 03/30/19at 08:31; Admin Dose 17 GM; Start 03/23/19 at 21:00 Miscellaneous Information 1 ea NOTE XX ; Start 03/23/19 at 18:00 Glucose (Glutose) 15 gm Q15M PRN PO DECREASED GLUCOSE; Start 03/23/19 at 18:00 Glucose (Glutose) 22.5 gm Q15M PRN PO DECREASED GLUCOSE; Start 03/23/19 at 18:00 Dextrose (D50w Syringe) 25 ml Q15M PRN IV DECREASED GLUCOSE; Start 03/23/19 at 18:00 Dextrose (D50w Syringe) 50 ml Q15M PRN IV DECREASED GLUCOSE; Start 03/23/19 at 18:00 Glucagon (Glucagen) 1 mg Q15M PRN IM DECREASED GLUCOSE; Start 03/23/19 at 18:00 Glucose (Glutose) 15 gm Q15M PRN BUCCAL DECREASED GLUCOSE; Start 03/23/19 at 18:00 Hydralazine HCl (Apresoline) 10 mg Q4H PRN IV FOR SBP>170; Start 03/26/19 at 03:30 Albuterol/ Ipratropium (Duoneb) 3 ml Q2H RESP THERAPY PRN HHN sob; Start 03/26/19 at 12:30 Cefepime HCl 50 ml @ 100 mls/hr Q8 IVPB Last administered on 03/31/19at 14:04; Admin Dose 100 MLS/HR; Start 03/27/19 at 14:00 Furosemide (Lasix) 40 mg DAILY@0600 IV Last administered on 03/31/19at 05:54; Admin Dose 40 MG; Start 03/27/19 at 11:00 Lisinopril (Zestril) 10 mg BID PO Last administered on 03/31/19at 08:27; Admin Dose 10 MG; Start 03/28/19 at 09:00 Carvedilol (Coreg) 6.25 mg BID PO Last administered on 03/31/19at 08:25; Admin Dose 6.25 MG; Start 03/27/19 at 21:00 Vancomycin HCl (Vanco Iv Per Pharmacy) 1 ea Per Rx Protocol XX ; Start 03/27/19 at 22:00 Vancomycin HCl 1.25 gm/Sodium Chloride 250 ml @ 83.333 mls/ hr Q8H IVPB Last administered on 03/31/19at 10:46; Admin Dose 83.333 MLS/HR; Start 03/29/19 at 11:00 Allopurinol (Zyloprim) 300 mg DAILY PO Last administered on 03/31/19at 08:25; Admin Dose 300 MG; Start 03/29/19 at 15:30 Cytarabine 0.28 gm/Sodium Chloride 1,000 ml @ 41.667 mls/ hr Q24H IV Last administered on 03/31/19at 18:02; Admin Dose 41.667 MLS/HR; Start 03/30/19 at 15:00; Stop 04/06/19 at 14:59 Daunorubicin HCl 140 mg/Sodium Chloride 100 ml @ 100 mls/hr Q24H IV Last administered on 03/31/19at 16:35; Admin Dose 100 MLS/HR; Start 03/30/19 at 15:00; Stop 04/01/19 at 15:59 Ondansetron HCl 16 mg/ Dexamethasone 20 mg/Sodium Chloride 63 ml @ 252 mls/hr Q24H IV Last administered on 03/31/19at 16:24; Admin Dose 252 MLS/HR; Start 03/30/19 at 14:30; Stop 04/01/19 at 14:44 Ondansetron HCl 8 mg/Sodium Chloride 54 ml @ 216 mls/hr Q8H PRN IV NAUSEA AND/OR VOMITING; Start 03/30/19 at 14:30; Stop 04/06/19 at 14:29 Insulin Glargine (Lantus) 20 units DAILY@2000 SC ; Start 03/31/19 at 20:00 Insulin Aspart (Novolog Insulin Pen) 4 unit WITH MEALS SC Last administered on 03/31/19at 18:05; Admin Dose 4 UNIT; Start 03/31/19 at 11:40 Miscellaneous Information (*Rx Drug Level Order Reminder*) MARIIO TR 1000 ONCE XX ; Start 04/01/19 at 10:00; Stop 04/01/19 at 10:01 LIVIA OSMAN NP Mar 31, 2019 18:38
[2019-03-31 19:57] VITALS: BP 140/81; PULSE 90; RESP 18
[2019-03-31] MEDS: INSULIN GLARGINE [LANTus] (100 UNITS/ML) SYG SC SCH (21:06)
[2019-04-01] VITALS (7 sets, daily range): BP systolic 126–154; BP diastolic 77–92; PULSE 80–86; RESP 17–18
[2019-04-01] MEDS: VANCOMYCIN HCL 1.25 GM in SOD CHLORIDE 0.9% 250 ML IVPB SCH ×3 (02:25→19:07)
[2019-04-01] MEDS: CEFEPIME 2GM/50 ML (PMX) 50 ML IVPB SCH ×3 (05:37→23:31)
[2019-04-01] MEDS: FUROSEMIDE 40 MG INJ IV SCH (05:37)
[2019-04-01] MEDS: ALLOPURINOL 300 MG TAB PO SCH (08:51)
[2019-04-01] MEDS: LISINOPRIL 10 MG TAB PO SCH ×2 (08:52→21:31)
[2019-04-01] MEDS: POLYETHYLENE GLYCOL 17 GM PACKET PO SCH ×2 (08:52→21:29)
[2019-04-01] MEDS: INSULIN ASPART [NOVOLOG] 3 ML PEN SC SCH ×7 (08:59→21:28)
--- NOTE | 2019-04-01 10:23 | PN ---
Date/Time of Note Date/Time of Note DATE: 04/01/19 TIME: 10:20 Assessment/Plan VTE Prophylaxis Risk score (from Ns)>0 risk: 5 SCD applied (from Ns): No SCD contraindicated: low risk/ambulating Pharmacological prophylaxis: NA/contraindicated Pharm contraindication: thrombocytopenia Lines/Catheters IV C[facility] Type (from [facility]): [place] [facility] line still needed: Yes Urinary Cath still in place: No Assessment/Plan Hospital Course SUBJECTIVE: Denies any pain or dyspnea. Constipated. OBJECTIVE: Physical Exam General: Adequately build 54 year-old male lying in bed in no apparent distress. HEENT: Normocephalic, atraumatic. Eyes: Anicteric sclerae, conjunctivae clear. ENT: Nasal septum midline, oral mucosa moist. Neck supple, no JVD noticed. Respiratory: Bilaterally clear breath sounds. No use of accessory muscles of respiration. No adventitious breath sounds. Cardiovascular: S1, S2 heard. Regular rate and rhythm. Abdomen: Soft, nontender, and nondistended. Bowel sounds positive in all 4 quadrants. Genitourinary: Deferred. Extremities: No cyanosis, no clubbing, no edema. Peripheral pulses palpable. Neurologic: Cranial nerves II through XII grossly intact. The patient is awake, alert, and oriented. Skin: Normal skin turgor. No skin rashes. Labs & Vitals per chart ASSESSMENT & PLAN 54-year-old male with comorbidities including hypertension and diabetes mellitus who presented to the emergency room on 03/22/2019 with febrile illness and was discharged home on oral antibiotics, who was called back on 03/23/2019 as per the instruction of the pathologist for increased blast cells on CBC drawn on 03/22/2019. 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 2. Neutropenic fevers. On ABX as per ID. Reyes cultures remain negative. 3. Diabetes mellitus type 2. Hemoglobin A1c 9.6. Continue the patient on sliding scale insulin along with basal insulin. 4. Hypertension. Continue antihypertensives. 5. Cardiomyopathy. EF of 35-40%. Continue BBs and ACEIs. Cardiology following. 6. Acute CHF exacerbation, systolic dysfunction. Continue diuretic therapy. Switch to oral diuretic therapy. 7. Fluids, electrolytes, and nutrition. Carbohydrate controlled, neutropenic diet. 8. DVT prophylaxis. Bilateral SCDs. 9. Plan. Continue to monitor for any secondary infection. Continue chemotherapy as per oncology. The patient was seen in collaboration with Dr. Avilez. Result Diagram: 04/01/19 0424 04/01/19 0424 Results 24hrs Laboratory Tests Test 03/31/19 12:29 03/31/19 18:03 03/31/19 21:00 04/01/19 02:23 Bedside Glucose 267 H 210 258 H 262 H Test 04/01/19 04:24 04/01/19 06:11 04/01/19 08:50 White Blood Count 1.3 #L Red Blood Count 2.74 L Hemoglobin 8.5 L Hematocrit 25.3 L Mean Corpuscular 92.3 Volume Mean Corpuscular 31.0 Hemoglobin Mean Corpuscular 33.6 Hemoglobin Concen t Red Cell 14.0 Distribution Width Platelet Count 73 L Mean Platelet 10.3 Volume Immature 12.500 H Granulocytes % Neutrophils % Segmented 39 Neutrophils % (Manual) Band Neutrophils 8 H % (Manual) Lymphocytes % Lymphocytes % 33 (Manual) Monocytes % Monocytes % 7 (Manual) Eosinophils % Basophils % Myelocytes % 3 H (Manual) Promyelocytes % 1 H (Manual) Blast Cells % 9.0 H (Manual) Nucleated Red 0.0 Blood Cells % Immature 0.160 H Granulocytes # Neutrophils # Neutrophils # 0.5 L (Manual) Band Neutrophils 0.1 # Lymphocytes 0.4 L (Manual) Lymphocytes # Monocytes # Monocytes # 0.0 L (Manual) Eosinophils # Basophils # Myelocytes # 0.0 Promyelocytes # 0.0 Nucleated Red Blood Cells # Platelet Estimate DECREASED Dimorphic Red 3+ Blood Cells Poikilocytosis 3+ Anisocytosis 1+ Sodium Level 136 Potassium Level 4.4 Chloride Level 106 Carbon Dioxide 20 L Level Anion Gap 10 Blood Urea 18 Nitrogen Creatinine 0.47 L Est Glomerular > 60 Filtrat Rate mL/min Glucose Level 231 H Calcium Level 7.8 L Lab Scanned BLOOD TRANSFUSIO Report N Bedside Glucose 203 Exam/Review of Systems Exam Vitals Vital Signs Date Temp Pulse Resp B/P (MAP) Pulse Ox O2 O2 Flow FiO2 Time Delivery Rate 04/01/19 98.1 80 18 139/79 99 Room Air 08:07 (99) Intake and Output 03/31/19 03/31/19 04/01/19 1515:00 23:00 07:00 IntakeIntake Total 1140 ml 1808.868 ml 833.339 ml OutputOutput Total 850 ml 800 ml BalanceBalance 290 ml 1008.868 ml 833.339 ml Results Results 24hrs Laboratory Tests Test 03/31/19 12:29 03/31/19 18:03 03/31/19 21:00 04/01/19 02:23 Bedside Glucose 267 H 210 258 H 262 H Test 04/01/19 04:24 04/01/19 06:11 04/01/19 08:50 White Blood Count 1.3 #L Red Blood Count 2.74 L Hemoglobin 8.5 L Hematocrit 25.3 L Mean Corpuscular 92.3 Volume Mean Corpuscular 31.0 Hemoglobin Mean Corpuscular 33.6 Hemoglobin Concen t Red Cell 14.0 Distribution Width Platelet Count 73 L Mean Platelet 10.3 Volume Immature 12.500 H Granulocytes % Neutrophils % Segmented 39 Neutrophils % (Manual) Band Neutrophils 8 H % (Manual) Lymphocytes % Lymphocytes % 33 (Manual) Monocytes % Monocytes % 7 (Manual) Eosinophils % Basophils % Myelocytes % 3 H (Manual) Promyelocytes % 1 H (Manual) Blast Cells % 9.0 H (Manual) Nucleated Red 0.0 Blood Cells % Immature 0.160 H Granulocytes # Neutrophils # Neutrophils # 0.5 L (Manual) Band Neutrophils 0.1 # Lymphocytes 0.4 L (Manual) Lymphocytes # Monocytes # Monocytes # 0.0 L (Manual) Eosinophils # Basophils # Myelocytes # 0.0 Promyelocytes # 0.0 Nucleated Red Blood Cells # Platelet Estimate DECREASED Dimorphic Red 3+ Blood Cells Poikilocytosis 3+ Anisocytosis 1+ Sodium Level 136 Potassium Level 4.4 Chloride Level 106 Carbon Dioxide 20 L Level Anion Gap 10 Blood Urea 18 Nitrogen Creatinine 0.47 L Est Glomerular > 60 Filtrat Rate mL/min Glucose Level 231 H Calcium Level 7.8 L Lab Scanned BLOOD TRANSFUSIO Report N Bedside Glucose 203 Medications Medication Current Medications Insulin Aspart (Novolog Insulin Pen) NOVOLOG *MILD* ALGORITHM WITH MEALS BEDTIME SC Last administered on 04/01/19at 09:00; Admin Dose 2 UNIT; Start at 18:00 IV Flush (NS 3 ml) 3 ml PER PROTOCOL IV ; Start 03/23/19 at 18:00 Ondansetron HCl (Zofran Inj) 4 mg Q6H PRN IV NAUSEA/VOMITING; Start 03/23/19 at 18:00 Acetaminophen (Tylenol Tab) 650 mg Q6H PRN PO .PAIN 1-3 OR TEMP Last administered on 03/29/19at 23:39; Admin Dose 650 MG; Start 03/23/19 at 18:00 Acetaminophen/ Hydrocodone Bitart ([place] (5/325)) 1 tab Q6H PRN PO .MOD PAIN 4- 6; Start 03/23/19 at 18:00 Polyethylene Glycol (Miralax) 17 gm BID PO Last administered on 04/01/19at 08:5 2; Admin Dose 17 GM; Start 03/23/19 at 21:00 Miscellaneous Information 1 ea NOTE XX ; Start 03/23/19 at 18:00 Glucose (Glutose) 15 gm Q15M PRN PO DECREASED GLUCOSE; Start 03/23/19 at 18:00 Glucose (Glutose) 22.5 gm Q15M PRN PO DECREASED GLUCOSE; Start 03/23/19 at 18:00 Dextrose (D50w Syringe) 25 ml Q15M PRN IV DECREASED GLUCOSE; Start 03/23/19 at 18:00 Dextrose (D50w Syringe) 50 ml Q15M PRN IV DECREASED GLUCOSE; Start 03/23/19 at 18:00 Glucagon (Glucagen) 1 mg Q15M PRN IM DECREASED GLUCOSE; Start 03/23/19 at 18:00 Glucose (Glutose) 15 gm Q15M PRN BUCCAL DECREASED GLUCOSE; Start 03/23/19 at 18:00 Hydralazine HCl (Apresoline) 10 mg Q4H PRN IV FOR SBP>170; Start 03/26/19 at 03:30 Albuterol/ Ipratropium (Duoneb) 3 ml Q2H RESP THERAPY PRN HHN sob; Start 03/26/19 at 12:30 Cefepime HCl 50 ml @ 100 mls/hr Q8 IVPB Last administered on 04/01/19at 05:37; Admin Dose 100 MLS/HR; Start 03/27/19 at 14:00 Furosemide (Lasix) 40 mg DAILY@0600 IV Last administered on 04/01/19at 05:37; Admin Dose 40 MG; Start 03/27/19 at 11:00 Lisinopril (Zestril) 10 mg BID PO Last administered on 04/01/19at 08:52; Admin Dose 10 MG; Start 03/28/19 at 09:00 Carvedilol (Coreg) 6.25 mg BID PO Last administered on 04/01/19at 08:53; Admin Dose 6.25 MG; Start 03/27/19 at 21:00 Vancomycin HCl (Vanco Iv Per Pharmacy) 1 ea Per Rx Protocol XX ; Start 03/27/19 at 22:00 Vancomycin HCl 1.25 gm/Sodium Chloride 250 ml @ 83.333 mls/ hr Q8H IVPB Last administered on 04/01/19at 02:25; Admin Dose 83.333 MLS/HR; Start 03/29/19 at 11:00 Allopurinol (Zyloprim) 300 mg DAILY PO Last administered on 04/01/19 08:51; Admin Dose 300 MG; Start 03/29/19 at 15:30 Cytarabine 0.28 gm/Sodium Chloride 1,000 ml @ 41.667 mls/ hr Q24H IV Last administered on 03/31/19at 18:02; Admin Dose 41.667 MLS/HR; Start 03/30/19 at 15:00; Stop 04/06/19 at 14:59 Daunorubicin HCl 140 mg/Sodium Chloride 100 ml @ 100 mls/hr Q24H IV Last administered on 03/31/19at 16:35; Admin Dose 100 MLS/HR; Start 03/30/19 at 15:00; Stop 04/01/19 at 15:59 Ondansetron HCl 16 mg/ Dexamethasone 20 mg/Sodium Chloride 63 ml @ 252 mls/hr Q24H IV Last administered on 03/31/19at 16:24; Admin Dose 252 MLS/HR; Start 03/30/19 at 14:30; Stop 04/01/19 at 14:44 Ondansetron HCl 8 mg/Sodium Chloride 54 ml @ 216 mls/hr Q8H PRN IV NAUSEA AND/OR VOMITING; Start 03/30/19 at 14:30; Stop 04/06/19 at 14:29 Insulin Glargine (Lantus) 20 units DAILY@2000 SC Last administered on 03/31/19at 21:06; Admin Dose 20 UNITS; Start 03/31/19 at 20:00 Insulin Aspart (Novolog Insulin Pen) 4 unit WITH MEALS SC Last administered on 04/01/19at 08:59; Admin Dose 4 UNIT; Start 03/31/19 at 11:40 KATIE PACE NP Apr 01, 2019 10:23
--- NOTE | 2019-04-01 14:35 | CONS ---
Assessment/Plan Assessment/Plan Hospital Course (Demo Recall) No acute changes overnight patient is alert feels good no fevers WBC 1.3 BUN 18 creatinine 0.47 Indwelling's: Right upper extremity PICC line, right IJ Port-A-Cath Blood cultures and urine culture negative Chest x-ray revealed no acute pulmonary abnormality Antimicrobials: Vancomycin cefepime Physical examination: Well-developed middle-aged man who is alert in no distress head atraumatic normocephalic sclera nonicteric vehicle mucosa pink neck is supple chest rise symmetrical breath sounds clear Heart S1-S2 abdomen soft bowel sounds present extremities without cyanosis edema Assessment: 1. S/p neutropenia 2. AML, newly diagnosed 3. Diabetes 4. Hypertension 5. Pancytopenia Plan: Clinically stable, continue antibiotics, follow oncology recommendations Consultation Date/Type/Reason Admit Date/Time Mar 23, 2019 at 16:10 Initial Consult Date 03/24/19 Type of Consult id Requesting Provider: KATIE PACE NP Date/Time of Note DATE: 04/01/19 TIME: 14:34 Exam/Review of Systems Exam Vitals Vital Signs Date Temp Pulse Resp B/P (MAP) Pulse Ox O2 O2 Flow FiO2 Time Delivery Rate 04/01/19 98.1 80 18 139/79 99 Room Air 08:07 (99) Intake and Output 03/31/19 03/31/19 04/01/19 1515:00 23:00 07:00 IntakeIntake Total 1140 ml 1808.868 ml 833.339 ml OutputOutput Total 850 ml 800 ml BalanceBalance 290 ml 1008.868 ml 833.339 ml Results Result Diagram: 04/01/19 0424 04/01/19 0424 Results 24hrs Laboratory Tests Test 03/31/19 18:03 03/31/19 21:00 04/01/19 02:23 04/01/19 04:24 Bedside Glucose 210 258 H 262 H White Blood Count 1.3 #L Red Blood Count 2.74 L Hemoglobin 8.5 L Hematocrit 25.3 L Mean Corpuscular 92.3 Volume Mean Corpuscular 31.0 Hemoglobin Mean Corpuscular 33.6 Hemoglobin Concen t Red Cell 14.0 Distribution Width Platelet Count 73 L Mean Platelet 10.3 Volume Immature 12.500 H Granulocytes % Neutrophils % Segmented 39 Neutrophils % (Manual) Band Neutrophils 8 H % (Manual) Lymphocytes % Lymphocytes % 33 (Manual) Monocytes % Monocytes % 7 (Manual) Eosinophils % Basophils % Myelocytes % 3 H (Manual) Promyelocytes % 1 H (Manual) Blast Cells % 9.0 H (Manual) Nucleated Red 0.0 Blood Cells % Immature 0.160 H Granulocytes # Neutrophils # Neutrophils # 0.5 L (Manual) Band Neutrophils 0.1 # Lymphocytes 0.4 L (Manual) Lymphocytes # Monocytes # Monocytes # 0.0 L (Manual) Eosinophils # Basophils # Myelocytes # 0.0 Promyelocytes # 0.0 Nucleated Red Blood Cells # Platelet Estimate DECREASED Dimorphic Red 3+ Blood Cells Poikilocytosis 3+ Anisocytosis 1+ Sodium Level 136 Potassium Level 4.4 Chloride Level 106 Carbon Dioxide 20 L Level Anion Gap 10 Blood Urea 18 Nitrogen Creatinine 0.47 L Est Glomerular > 60 Filtrat Rate mL/min Glucose Level 231 H Calcium Level 7.8 L Test 04/01/19 06:11 04/01/19 08:50 04/01/19 09:57 04/01/19 12:43 Lab Scanned BLOOD TRANSFUSIO Report N Bedside Glucose 203 255 H Vancomycin Level 13.3 Trough Medications Medication Current Medications Insulin Aspart (Novolog Insulin Pen) NOVOLOG *MILD* ALGORITHM WITH MEALS BEDTIME SC Last administered on 04/01/19at 12:53; Admin Dose 3 UNIT; Start 03/23/19 at 18:00 IV Flush (NS 3 ml) 3 ml PER PROTOCOL IV ; Start 03/23/19 at 18:00 Ondansetron HCl (Zofran Inj) 4 mg Q6H PRN IV NAUSEA/VOMITING; Start 03/23/19 at 18:00 Acetaminophen (Tylenol Tab) 650 mg Q6H PRN PO .PAIN 1-3 OR TEMP Last administered on 03/29/19at 23:39; Admin Dose 650 MG; Start 03/23/19 at 18:00 Acetaminophen/ Hydrocodone Bitart ([place] (5/325)) 1 tab Q6H PRN PO .MOD PAIN 4- 6; Start 03/23/19 at 18:00 Polyethylene Glycol (Miralax) 17 gm BID PO Last administered on 04/01/19at 08:52; Admin Dose 17 GM; Start 03/23/19 at 21:00 Miscellaneous Information 1 ea NOTE XX ; Start 03/23/19 at 18:00 Glucose (Glutose) 15 gm Q15M PRN PO DECREASED GLUCOSE; Start 03/23/19 at 18:00 Glucose (Glutose) 22.5 gm Q15M PRN PO DECREASED GLUCOSE; Start 03/23/19 at 18:00 Dextrose (D50w Syringe) 25 ml Q15M PRN IV DECREASED GLUCOSE; Start 03/23/19 at 18:00 Dextrose (D50w Syringe) 50 ml Q15M PRN IV DECREASED GLUCOSE; Start 03/23/19 at 18:00 Glucagon (Glucagen) 1 mg Q15M PRN IM DECREASED GLUCOSE; Start 03/23/19 at 18:00 Glucose (Glutose) 15 gm Q15M PRN BUCCAL DECREASED GLUCOSE; Start 03/23/19 at 18:00 Hydralazine HCl (Apresoline) 10 mg Q4H PRN IV FOR SBP>170; Start 03/26/19 at 03:30 Albuterol/ Ipratropium (Duoneb) 3 ml Q2H RESP THERAPY PRN HHN sob; Start 03/26/19 at 12:30 Cefepime HCl 50 ml @ 100 mls/hr Q8 IVPB Last administered on 04/01/19at 14:24; Admin Dose 100 MLS/HR; Start 03/27/19 at 14:00 Lisinopril (Zestril) 10 mg BID PO Last administered on 04/01/19at 08:52; Admin Dose 10 MG; Start 03/28/19 at 09:00 Carvedilol (Coreg) 6.25 mg BID PO Last administered on 04/01/19at 08:53; Admin Dose 6.25 MG; Start 03/27/19 at 21:00 Vancomycin HCl (Vanco Iv Per Pharmacy) 1 ea Per Rx Protocol XX ; Start 03/27/19 at 22:00 Vancomycin HCl 1.25 gm/Sodium Chloride 250 ml @ 83.333 mls/ hr Q8H IVPB Last administered on 04/01/19at 11:30; Admin Dose 83.333 MLS/HR; Start 03/29/19 at 11:00 Allopurinol (Zyloprim) 300 mg DAILY PO Last administered on 04/01/19at 08:51; Admin Dose 300 MG; Start 03/29/19 at 15:30 Cytarabine 0.28 gm/Sodium Chloride 1,000 ml @ 41.667 mls/ hr Q24H IV Last administered on 03/31/19at 18:02; Admin Dose 41.667 MLS/HR; Start 03/30/19 at 15:00; Stop 04/06/19 at 14:59 Daunorubicin HCl 140 mg/Sodium Chloride 100 ml @ 100 mls/hr Q24H IV Last administered on 03/31/19at 16:35; Admin Dose 100 MLS/HR; Start 03/30/19 at 15:00; Stop 04/01/19 at 15:59 Ondansetron HCl 16 mg/ Dexamethasone 20 mg/Sodium Chloride 63 ml @ 252 mls/hr Q24H IV Last administered on 03/31/19at 16:24; Admin Dose 252 MLS/HR; Start 03/30/19 at 14:30; Stop 04/01/19 at 14:44 Ondansetron HCl 8 mg/Sodium Chloride 54 ml @ 216 mls/hr Q8H PRN IV NAUSEA AND/OR VOMITING; Start 03/30/19 at 14:30; Stop 04/06/19 at 14:29 Insulin Glargine (Lantus) 20 units DAILY@2000 SC Last administered on 03/31/19at 21:06; Admin Dose 20 UNITS; Start 03/31/19 at 20:00 Insulin Aspart (Novolog Insulin Pen) 4 unit WITH MEALS SC Last administered on 04/01/19at 12:53; Admin Dose 4 UNIT; Start 03/31/19 at 11:40 Furosemide (Lasix) 20 mg DAILY PO ; Start 04/02/19 at 09:00 JEANNIE NICHOLSON NP Apr 01, 2019 14:35
[2019-04-01] MEDS: ONDANSETRON INJ 16 MG, DEXAMETHASONE 4 MG/ML 20 MG in SOD CHLORIDE 0.9% 50 ML IV SCH (15:40)
[2019-04-01] MEDS: DAUNORUBICIN IV SCH (16:25)
[2019-04-01] MEDS: SOD CHLORIDE 0.9% IV SCH ×2 (16:25→18:12)
--- NOTE | 2019-04-01 18:09 | PN ---
Date/Time of Note Date/Time of Note DATE: 04/01/19 TIME: 18:05 Assessment/Plan VTE Prophylaxis Risk score (from Ns)>0 risk: 5 SCD applied (from [facility]): Yes Pharmacological prophylaxis: NA/contraindicated Pharm contraindication: thrombocytopenia, other (pancytopenia) Lines/Catheters IV Catheter Type (from [facility]): [place] [facility] line still needed: Yes Urinary Cath still in place: No Assessment/Plan Assessment/Plan Day 3 of induction with 7+3 regimen. No side effects so far. We discussed that he will need to be here for several weeks due to the pancytopenia that will become more severe. He will need blood products and antibiotics at least. He understands this and is handling this situation very well psychologically. Result Diagram: 04/01/19 0424 04/01/19423 Results 24hrs Laboratory Tests Test 03/31/19 21:00 04/01/19 02:23 04/01/19 04:24 04/01/19 06:11 Bedside Glucose 258 H 262 H White Blood Count 1.3 #L Red Blood Count 2.74 L Hemoglobin 8.5 L Hematocrit 25.3 L Mean Corpuscular 92.3 Volume Mean Corpuscular 31.0 Hemoglobin Mean Corpuscular 33.6 Hemoglobin Concen t Red Cell 14.0 Distribution Width Platelet Count 73 L Mean Platelet 10.3 Volume Immature 12.500 H Granulocytes % Neutrophils % Segmented 39 Neutrophils % (Manual) Band Neutrophils 8 H % (Manual) Lymphocytes % Lymphocytes % 33 (Manual) Monocytes % Monocytes % 7 (Manual) Eosinophils % Basophils % Myelocytes % 3 H (Manual) Promyelocytes % 1 H (Manual) Blast Cells % 9.0 H (Manual) Nucleated Red 0.0 Blood Cells % Immature 0.160 H Granulocytes # Neutrophils # Neutrophils # 0.5 L (Manual) Band Neutrophils 0.1 # Lymphocytes 0.4 L (Manual) Lymphocytes # Monocytes # Monocytes # 0.0 L (Manual) Eosinophils # Basophils # Myelocytes # 0.0 Promyelocytes # 0.0 Nucleated Red Blood Cells # Platelet Estimate DECREASED Dimorphic Red 3+ Blood Cells Poikilocytosis 3+ Anisocytosis 1+ Sodium Level 136 Potassium Level 4.4 Chloride Level 106 Carbon Dioxide 20 L Level Anion Gap 10 Blood Urea 18 Nitrogen Creatinine 0.47 L Est Glomerular > 60 Filtrat Rate mL/min Glucose Level 231 H Calcium Level 7.8 L Lab Scanned BLOOD TRANSFUSIO Report N Test 04/01/19 08:50 04/01/19 09:57 04/01/19 12:43 04/01/19 17:48 Bedside Glucose 203 255 H 235 H Vancomycin Level 13.3 Trough Subjective 24 Hr Interval Summary Free Text/Dictation Pt is day 3 of chemotherapy induction and has no complaints of nausea, malaise, vomiting Exam/Review of Systems Exam Vitals Vital Signs Date Temp Pulse Resp B/P (MAP) Pulse Ox O2 O2 Flow FiO2 Time Delivery Rate 04/01/19 98.1 80 18 139/79 99 Room Air 08:07 (99) Intake and Output 03/31/19 03/31/19 04/01/19 1515:00 23:00 07:00 IntakeIntake Total 1140 ml 1808.868 ml 833.339 ml OutputOutput Total 850 ml 800 ml BalanceBalance 290 ml 1008.868 ml 833.339 ml Constitutional: alert, oriented Head: normocephalic Eyes: other (conjunctival pallor) ENMT: nl lips & teeth Neck: supple Respiratory: clear to auscultation Cardiovascular: regular rate and rhythm Gastrointestinal: soft, non-tender Neurological: nl mental status, nl speech Lymph: nl lymph nodes Results Results 24hrs Laboratory Tests Test 03/31/19 21:00 04/01/19 02:23 04/01/19 04:24 04/01/19 06:11 Bedside Glucose 258 H 262 H White Blood Count 1.3 #L Red Blood Count 2.74 L Hemoglobin 8.5 L Hematocrit 25.3 L Mean Corpuscular 92.3 Volume Mean Corpuscular 31.0 Hemoglobin Mean Corpuscular 33.6 Hemoglobin Concen t Red Cell 14.0 Distribution Width Platelet Count 73 L Mean Platelet 10.3 Volume Immature 12.500 H Granulocytes % Neutrophils % Segmented 39 Neutrophils % (Manual) Band Neutrophils 8 H % (Manual) Lymphocytes % Lymphocytes % 33 (Manual) Monocytes % Monocytes % 7 (Manual) Eosinophils % Basophils % Myelocytes % 3 H (Manual) Promyelocytes % 1 H (Manual) Blast Cells % 9.0 H (Manual) Nucleated Red 0.0 Blood Cells % Immature 0.160 H Granulocytes # Neutrophils # Neutrophils # 0.5 L (Manual) Band Neutrophils 0.1 # Lymphocytes 0.4 L (Manual) Lymphocytes # Monocytes # Monocytes # 0.0 L (Manual) Eosinophils # Basophils # Myelocytes # 0.0 Promyelocytes # 0.0 Nucleated Red Blood Cells # Platelet Estimate DECREASED Dimorphic Red 3+ Blood Cells Poikilocytosis 3+ Anisocytosis 1+ Sodium Level 136 Potassium Level 4.4 Chloride Level 106 Carbon Dioxide 20 L Level Anion Gap 10 Blood Urea 18 Nitrogen Creatinine 0.47 L Est Glomerular > 60 Filtrat Rate mL/min Glucose Level 231 H Calcium Level 7.8 L Lab Scanned BLOOD TRANSFUSIO Report N Test 04/01/19 08:50 04/01/19 09:57 04/01/19 12:43 04/01/19 17:48 Bedside Glucose 203 255 H 235 H Vancomycin Level 13.3 Trough Medications Medication Current Medications Insulin Aspart (Novolog Insulin Pen) NOVOLOG *MILD* ALGORITHM WITH MEALS BEDTIME SC Last administered on 04/01/19at 12:53; Admin Dose 3 UNIT; Start 03/23/19 at 18:00 IV Flush (NS 3 ml) 3 ml PER PROTOCOL IV ; Start 03/23/19 at 18:00 Ondansetron HCl (Zofran Inj) 4 mg Q6H PRN IV NAUSEA/VOMITING; Start 03/23/19 at 18:00 Acetaminophen (Tylenol Tab) 650 mg Q6H PRN PO .PAIN 1-3 OR TEMP Last admi nistered on 03/29/19at 23:39; Admin Dose 650 MG; Start 03/23/19 at 18:00 Acetaminophen/ Hydrocodone Bitart ([place] (5/325)) 1 tab Q6H PRN PO .MOD PAIN 4- 6; Start 03/23/19 at 18:00 Polyethylene Glycol (Miralax) 17 gm BID PO Last administered on 04/01/19at 08:52; Admin Dose 17 GM; Start 03/23/19 at 21:00 Miscellaneous Information 1 ea NOTE XX ; Start 03/23/19 at 18:00 Glucose (Glutose) 15 gm Q15M PRN PO DECREASED GLUCOSE; Start 03/23/19 at 18:00 Glucose (Glutose) 22.5 gm Q15M PRN PO DECREASED GLUCOSE; Start 03/23/19 at 18:00 Dextrose (D50w Syringe) 25 ml Q15M PRN IV DECREASED GLUCOSE; Start 03/23/19 at 18:00 Dextrose (D50w Syringe) 50 ml Q15M PRN IV DECREASED GLUCOSE; Start 03/23/19 at 18:00 Glucagon (Glucagen) 1 mg Q15M PRN IM DECREASED GLUCOSE; Start 03/23/19 at 18:00 Glucose (Glutose) 15 gm Q15M PRN BUCCAL DECREASED GLUCOSE; Start 03/23/19 at 18:00 Hydralazine HCl (Apresoline) 10 mg Q4H PRN IV FOR SBP>170; Start 03/26/19 at 03:30 Albuterol/ Ipratropium (Duoneb) 3 ml Q2H RESP THERAPY PRN HHN sob; Start 03/26/19 at 12:30 Cefepime HCl 50 ml @ 100 mls/hr Q8 IVPB Last administered on 04/01/19at 14:24; Admin Dose 100 MLS/HR; Start 03/27/19 at 14:00 Lisinopril (Zestril) 10 mg BID PO Last administered on 04/01/19at 08:52; Admin Dose 10 MG; Start 03/28/19 at 09:00 Carvedilol (Coreg) 6.25 mg BID PO Last administered on 04/01/19at 08:53; Admin Dose 6.25 MG; Start 03/27/19 at 21:00 Vancomycin HCl (Vanco Iv Per Pharmacy) 1 ea Per Rx Protocol XX ; Start 03/27/19 at 22:00 Vancomycin HCl 1.25 gm/Sodium Chloride 250 ml @ 83.333 mls/ hr Q8H IVPB Last administered on 04/01/19at 11:30; Admin Dose 83.333 MLS/HR; Start 03/29/19 at 11:00 Allopurinol (Zyloprim) 300 mg DAILY PO Last administered on 04/01/19at 08:51; Admin Dose 300 MG; Start 03/29/19 at 15:30 Cytarabine 0.28 gm/Sodium Chloride 1,000 ml @ 41.667 mls/ hr Q24H IV Last administered on 03/31/19at 18:02; Admin Dose 41.667 MLS/HR; Start 03/30/19 at 15:00; Stop 04/06/19 at 14:59 Ondansetron HCl 8 mg/Sodium Chloride 54 ml @ 216 mls/hr Q8H PRN IV NAUSEA AND/OR VOMITING; Start 03/30/19 at 14:30; Stop 04/06/19 at 14:29 Insulin Glargine (Lantus) 20 units DAILY@2000 SC Last administered on 03/31/19at 21:06; Admin Dose 20 UNITS; Start 03/31/19 at 20:00 Insulin Aspart (Novolog Insulin Pen) 4 unit WITH MEALS SC Last administered on 04/01/19at 12:53; Admin Dose 4 UNIT; Start 03/31/19 at 11:40 Furosemide (Lasix) 20 mg DAILY PO ; Start 04/02/19 at 09:00 BETTE MALDONADO MD Apr 01, 2019 18:09
[2019-04-01] MEDS: CYTARABINE IV SCH (18:12)
[2019-04-01] MEDS: INSULIN GLARGINE [LANTus] (100 UNITS/ML) SYG SC SCH (21:29)
[2019-04-02 02:09] VITALS: BP 142/80; PULSE 81; RESP 18
[2019-04-02] MEDS: VANCOMYCIN HCL 1.25 GM in SOD CHLORIDE 0.9% 250 ML IVPB SCH ×2 (02:41→11:03)
[2019-04-02] MEDS ORDERED: ACCU-CHEK XX ONE (03:00)
[2019-04-02] MEDS ORDERED: INSULIN ASPART [NOVOLOG] 3 ML PEN SC ONE (03:00)
[2019-04-02] MEDS: CEFEPIME 2GM/50 ML (PMX) 50 ML IVPB SCH ×2 (05:27→14:16)
--- NOTE | 2019-04-02 05:53 | PN ---
Date/Time of Note Date/Time of Note DATE: 04/02/19 TIME: 05:53 Assessment/Plan VTE Prophylaxis Risk score (from Ns)>0 risk: 5 SCD applied (from [facility] [place]): No SCD contraindicated: other Pharmacological prophylaxis: NA/contraindicated Pharm contraindication: thrombocytopenia Lines/Catheters IV C[facility]ter Type (from [facility]): [place] [facility] line still needed: Yes Urinary Cath still in place: No Assessment/Plan Hospital Course SUBJECTIVE: Denies any pain or dyspnea. Constipated. OBJECTIVE: Physical Exam General: Adequately build 54 year-old male lying in bed in no apparent distress. HEENT: Normocephalic, atraumatic. Eyes: Anicteric sclerae, conjunctivae clear. ENT: Nasal septum midline, oral mucosa moist. Neck supple, no JVD noticed. Respiratory: Bilaterally clear breath sounds. No use of accessory muscles of respiration. No adventitious breath sounds. Cardiovascular: S1, S2 heard. Regular rate and rhythm. Abdomen: Soft, nontender, and nondistended. Bowel sounds positive in all 4 quadrants. Genitourinary: Deferred. Extremities: No cyanosis, no clubbing, no edema. Peripheral pulses palpable. Neurologic: Cranial nerves II through XII grossly intact. The patient is awake, alert, and oriented. Skin: Normal skin turgor. No skin rashes. Labs & Vitals per chart ASSESSMENT & PLAN 54-year-old male with comorbidities including hypertension and diabetes mellitus who presented to the emergency room on 03/22/2019 with febrile illness and was discharged home on oral antibiotics, who was called back on 03/23/2019 as per the instruction of the pathologist for increased blast cells on CBC drawn on 03/22/2019. 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 2. Neutropenic fevers. On ABX as per ID. Reyes cultures remain negative. 3. Diabetes mellitus type 2. Hemoglobin A1c 9.6. Continue the patient on sliding scale insulin along with basal insulin. 4. Hypertension. Continue antihypertensives. 5. Cardiomyopathy. EF of 35-40%. Continue BBs and ACEIs. Cardiology following. 6. Acute CHF exacerbation, systolic dysfunction. Continue diuretic therapy. Switch to oral diuretic therapy. 7. Fluids, electrolytes, and nutrition. Carbohydrate controlled, neutropenic diet. 8. DVT prophylaxis. Bilateral SCDs. 9. Plan. Continue to monitor for any secondary infection. Continue chemotherapy as per oncology. The patient was seen in collaboration with Dr. Avilez. Result Diagram: 04/02/19 0423 04/01/19 0424 Results 24hrs Laboratory Tests Test 04/01/19 06:11 04/01/19 08:50 04/01/19 09:57 04/01/19 12:43 Lab Scanned BLOOD TRANSFUSIO Report N Bedside Glucose 203 255 H Vancomycin Level 13.3 Trough Test 04/01/19 17:48 04/01/19 21:25 04/02/19 02:46 04/02/19 04:23 Bedside Glucose 235 H 224 H 231 H White Blood Count 1.0 #L Red Blood Count 2.73 L Hemoglobin 8.6 L Hematocrit 25.0 L Mean Corpuscular 91.6 Volume Mean Corpuscular 31.5 Hemoglobin Mean Corpuscular 34.4 Hemoglobin Concen t Red Cell 13.5 Distribution Width Platelet Count 70 L Mean Platelet 10.2 Volume Immature 10.200 H Granulocytes % Neutrophils % Lymphocytes % Monocytes % Eosinophils % Basophils % Nucleated Red 0.0 Blood Cells % Immature 0.100 H Granulocytes # Neutrophils # Lymphocytes # Monocytes # Eosinophils # Basophils # Nucleated Red Blood Cells # Test 04/02/19 05:25 Bedside Glucose 199 Exam/Review of Systems Exam Vitals Vital Signs Date Temp Pulse Resp B/P (MAP) Pulse Ox O2 O2 Flow FiO2 Time Delivery Rate 04/02/19 98.0 81 18 142/80 98 Room Air 02:09 (100) Intake and Output 04/01/19 04/01/19 04/02/19 1515:00 23:00 07:00 IntakeIntake Total 300 ml 3579.668 ml 600.002 ml BalanceBalance 300 ml 3579.668 ml 600.002 ml Results Results 24hrs Laboratory Tests Test 04/01/19 06:11 04/01/19 08:50 04/01/19 09:57 04/01/19 12:43 Lab Scanned BLOOD TRANSFUSIO Report N Bedside Glucose 203 255 H Vancomycin Level 13.3 Trough Test 04/01/19 17:48 04/01/19 21:25 04/02/19 02:46 04/02/19 04:23 Bedside Glucose 235 H 224 H 231 H White Blood Count 1.0 #L Red Blood Count 2.73 L Hemoglobin 8.6 L Hematocrit 25.0 L Mean Corpuscular 91.6 Volume Mean Corpuscular 31.5 Hemoglobin Mean Corpuscular 34.4 Hemoglobin Concen t Red Cell 13.5 Distribution Width Platelet Count 70 L Mean Platelet 10.2 Volume Immature 10.200 H Granulocytes % Neutrophils % Lymphocytes % Monocytes % Eosinophils % Basophils % Nucleated Red 0.0 Blood Cells % Immature 0.100 H Granulocytes # Neutrophils # Lymphocytes # Monocytes # Eosinophils # Basophils # Nucleated Red Blood Cells # Test 04/02/19 05:25 Bedside Glucose 199 Medications Medication Current Medications Insulin Aspart (Novolog Insulin Pen) NOVOLOG *MILD* ALGORITHM WITH MEALS BEDTIME SC Last administered on 04/01/19at 21:28; Admin Dose 2 UNIT; Start 03/23/19 at 18:00 IV Flush (NS 3 ml) 3 ml PER PROTOCOL IV ; Start 03/23/19 at 18:00 Ondansetron HCl (Zofran Inj) 4 mg Q6H PRN IV NAUSEA/VOMITING; Start 03/23/19 at 18:00 Acetaminophen (Tylenol Tab) 650 mg Q6H PRN PO .PAIN 1-3 OR TEMP Last administered on 03/29/19at 23:39; Admin Dose 650 MG; Start 03/23/19 at 18:00 Acetaminophen/ Hydrocodone Bitart ([place] (5/325)) 1 tab Q6H PRN PO .MOD PAIN 4- 6; Start 03/23/19 at 18:00 Polyethylene Glycol (Miralax) 17 gm BID PO Last administered on 04/01/19at 21:29; Admin Dose 17 GM; Start 03/23/19 at 21:00 Miscellaneous Information 1 ea NOTE XX ; Start 03/23/19 at 18:00 Glucose (Glutose) 15 gm Q15M PRN PO DECREASED GLUCOSE; Start 03/23/19 at 18:00 Glucose (Glutose) 22.5 gm Q15M PRN PO DECREASED GLUCOSE; Start 03/23/19 at 18:00 Dextrose (D50w Syringe) 25 ml Q15M PRN IV DECREASED GLUCOSE; Start 03/23/19 at 18:00 Dextrose (D50w Syringe) 50 ml Q15M PRN IV DECREASED GLUCOSE; Start 03/23/19 at 18:00 Glucagon (Glucagen) 1 mg Q15M PRN IM DECREASED GLUCOSE; Start 03/23/19 at 18:00 Glucose (Glutose) 15 gm Q15M PRN BUCCAL DECREASED GLUCOSE; Start 03/23/19 at 18:00 Hydralazine HCl (Apresoline) 10 mg Q4H PRN IV FOR SBP>170; Start 03/26/19 at 03:30 Albuterol/ Ipratropium (Duoneb) 3 ml Q2H RESP THERAPY PRN HHN sob; Start 03/26/19 at 12:30 Cefepime HCl 50 ml @ 100 mls/hr Q8 IVPB Last administered on 04/02/19 05:27; Admin Dose 100 MLS/HR; Start 03/27/19 at 14:00 Lisinopril (Zestril) 10 mg BID PO Last administered on 04/01/19 21:31; Admin Dose 10 MG; Start 03/28/19 at 09:00 Carvedilol (Coreg) 6.25 mg BID PO Last administered on 04/01/19 21:32; Admin Dose 6.25 MG; Start 03/27/19 at 21:00 Vancomycin HCl (Vanco Iv Per Pharmacy) 1 ea Per Rx Protocol XX ; Start 03/27/19 at 22:00 Vancomycin HCl 1.25 gm/Sodium Chloride 250 ml @ 83.333 mls/ hr Q8H IVPB Last administered on 04/02/19 02:41; Admin Dose 83.333 MLS/HR; Start 03/29/19 at 11:00 Allopurinol (Zyloprim) 300 mg DAILY PO Last administered on 04/01/19 08:51; Admin Dose 300 MG; Start 03/29/19 at 15:30 Cytarabine 0.28 gm/Sodium Chloride 1,000 ml @ 41.667 mls/ hr Q24H IV Last administered on 04/01/19 18:12; Admin Dose 41.667 MLS/HR; Start 03/30/19 at 15:00; Stop 04/06/19 at 14:59 Ondansetron HCl 8 mg/Sodium Chloride 54 ml @ 216 mls/hr Q8H PRN IV NAUSEA AND/OR VOMITING; Start 03/30/19 at 14:30; Stop 04/06/19 at 14:29 Insulin Glargine (Lantus) 20 units DAILY@2000 SC Last administered on 04/01/19at 21:29; Admin Dose 20 UNITS; Start 03/31/19 at 20:00 Insulin Aspart (Novolog Insulin Pen) 4 unit WITH MEALS SC Last administered on 04/01/19at 18:13; Admin Dose 4 UNIT; Start 03/31/19 at 11:40 Furosemide (Lasix) 20 mg DAILY PO ; Start 04/02/19 at 09:00 KATIE PACE NP Apr 02, 2019 05:53
[2019-04-02] MEDS: POLYETHYLENE GLYCOL 17 GM PACKET PO SCH ×2 (08:20→20:43)
[2019-04-02] MEDS: LISINOPRIL 10 MG TAB PO SCH ×2 (08:21→20:50)
[2019-04-02] MEDS: ALLOPURINOL 300 MG TAB PO SCH (08:21)
[2019-04-02] MEDS: FUROSEMIDE 20 MG TAB PO SCH (08:21)
[2019-04-02] MEDS: INSULIN ASPART [NOVOLOG] 3 ML PEN SC SCH ×7 (08:22→20:51)
[2019-04-02 08:31] VITALS: BP 147/91; PULSE 89; RESP 18
[2019-04-02 12:38] VITALS: BP 146/85; PULSE 77; RESP 18
--- NOTE | 2019-04-02 15:21 | CONS ---
Assessment/Plan Assessment/Plan Hospital Course (Demo Recall) No acute changes overnight. Patient is alert feels good, denies pain Indwelling's: Right upper extremity PICC line, right IJ Port-A-Cath Blood cultures and urine culture negative Antimicrobials: Vancomycin cefepime Physical examination: Well-developed middle-aged man who is alert in no distress head atraumatic normocephalic sclera nonicteric vehicle mucosa pink neck is supple chest rise symmetrical breath sounds clear Heart S1-S2 abdomen soft bowel sounds present extremities without cyanosis edema Assessment: 1. S/p neutropenia 2. AML, newly diagnosed 3. Diabetes 4. Hypertension 5. Pancytopenia Plan: Clinically stable, oncology recommendations noted, change abx to Levaquin and Doxycycline, add fluconazole and prophylactic acyclovir Consultation Date/Type/Reason Admit Date/Time Mar 23, 2019 at 16:10 Initial Consult Date 03/24/19 Type of Consult id Requesting Provider: KATIE PACE NP Date/Time of Note DATE: 04/02/19 TIME: 15:19 Exam/Review of Systems Exam Vitals Vital Signs Date Temp Pulse Resp B/P (MAP) Pulse Ox O2 O2 Flow FiO2 Time Delivery Rate 04/02/19 98.0 77 18 146/85 98 Room Air 12:38 (105) Intake and Output 04/01/19 04/01/19 04/02/19 1515:00 23:00 07:00 IntakeIntake Total 300 ml 3579.668 ml 733.336 ml BalanceBalance 300 ml 3579.668 ml 733.336 ml Results Result Diagram: 04/02/19 0423 04/02/19 0423 Results 24hrs Laboratory Tests Test 04/01/19 17:48 04/01/19 21:25 04/02/19 02:46 04/02/19 04:23 Bedside Glucose 235 H 224 H 231 H White Blood Count 1.0 #L Red Blood Count 2.73 L Hemoglobin 8.6 L Hematocrit 25.0 L Mean Corpuscular 91.6 Volume Mean Corpuscular 31.5 Hemoglobin Mean Corpuscular 34.4 Hemoglobin Concent Red Cell 13.5 Distribution Width Platelet Count 70 L Mean Platelet Volume 10.2 Immature 10.200 H Granulocytes % Neutrophils % Segmented 47 Neutrophils % (Manual) Band Neutrophils % 9 H (Manual) Lymphocytes % Lymphocytes % 38 (Manual) Monocytes % Monocytes % (Manual) 4 Eosinophils % Basophils % Blast Cells % 2.0 H (Manual) Nucleated Red Blood 0.0 Cells % Immature 0.100 H Granulocytes # Neutrophils # Neutrophils # 0.5 L (Manual) Band Neutrophils # 0.0 Lymphocytes (Manual) 0.3 L Lymphocytes # Monocytes # Monocytes # (Manual) 0.0 L Eosinophils # Basophils # Nucleated Red Blood Cells # Platelet Estimate DECREASED Hypochromasia 1+ Anisocytosis 1+ Macrocytosis 1+ Sodium Level 136 Potassium Level 4.4 Chloride Level 105 Carbon Dioxide Level 23 Anion Gap 8 Blood Urea Nitrogen 16 Creatinine 0.48 L Est Glomerular > 60 Filtrat Rate mL/min Glucose Level 203 Calcium Level 7.9 L Test 04/02/19 05:00 04/02/19 05:25 04/02/19 08:19 04/02/19 12:30 Phosphorus Level 4.1 Magnesium Level 2.2 Bedside Glucose 199 160 245 H Medications Medication Current Medications Insulin Aspart (Novolog Insulin Pen) NOVOLOG *MILD* ALGORITHM WITH MEALS BE DTIME SC Last administered on 04/02/19at 12:32; Admin Dose 3 UNIT; Start 03/23/19 at 18:00 IV Flush (NS 3 ml) 3 ml PER PROTOCOL IV ; Start 03/23/19 at 18:00 Ondansetron HCl (Zofran Inj) 4 mg Q6H PRN IV NAUSEA/VOMITING; Start 03/23/19 at 18:00 Acetaminophen (Tylenol Tab) 650 mg Q6H PRN PO .PAIN 1-3 OR TEMP Last administered on 03/29/19at 23:39; Admin Dose 650 MG; Start 03/23/19 at 18:00 Acetaminophen/ Hydrocodone Bitart ([place] (5/325)) 1 tab Q6H PRN PO .MOD PAIN 4- 6; Start 03/23/19 at 18:00 Polyethylene Glycol (Miralax) 17 gm BID PO Last administered on 04/02/19at 08:20; Admin Dose 17 GM; Start 03/23/19 at 21:00 Miscellaneous Information 1 ea NOTE XX ; Start 03/23/19 at 18:00 Glucose (Glutose) 15 gm Q15M PRN PO DECREASED GLUCOSE; Start 03/23/19 at 18:00 Glucose (Glutose) 22.5 gm Q15M PRN PO DECREASED GLUCOSE; Start 03/23/19 at 18:00 Dextrose (D50w Syringe) 25 ml Q15M PRN IV DECREASED GLUCOSE; Start 03/23/19 at 18:00 Dextrose (D50w Syringe) 50 ml Q15M PRN IV DECREASED GLUCOSE; Start 03/23/19 at 18:00 Glucagon (Glucagen) 1 mg Q15M PRN IM DECREASED GLUCOSE; Start 03/23/19 at 18:00 Glucose (Glutose) 15 gm Q15M PRN BUCCAL DECREASED GLUCOSE; Start 03/23/19 at 18:00 Hydralazine HCl (Apresoline) 10 mg Q4H PRN IV FOR SBP>170; Start 03/26/19 at 03:30 Albuterol/ Ipratropium (Duoneb) 3 ml Q2H RESP THERAPY PRN HHN sob; Start 03/26/19 at 12:30 Cefepime HCl 50 ml @ 100 mls/hr Q8 IVPB Last administered on 04/02/19at 14:16; Admin Dose 100 MLS/HR; Start 03/27/19 at 14:00 Lisinopril (Zestril) 10 mg BID PO Last administered on 04/02/19 08:21; Admin Dose 10 MG; Start 03/28/19 at 09:00 Carvedilol (Coreg) 6.25 mg BID PO Last administered on 04/02/19 08:23; Admin Dose 6.25 MG; Start 03/27/19 at 21:00 Vancomycin HCl (Vanco Iv Per Pharmacy) 1 ea Per Rx Protocol XX ; Start 03/27/19 at 22:00 Vancomycin HCl 1.25 gm/Sodium Chloride 250 ml @ 83.333 mls/ hr Q8H IVPB Last administered on 04/02/19at 11:03; Admin Dose 83.333 MLS/HR; Start 03/29/19 at 11:00 Allopurinol (Zyloprim) 300 mg DAILY PO Last administered on 04/02/19 08:21; Admin Dose 300 MG; Start 03/29/19 at 15:30 Ondansetron HCl 8 mg/Sodium Chloride 54 ml @ 216 mls/hr Q8H PRN IV NAUSEA AND/OR VOMITING; Start 03/30/19 at 14:30; Stop 04/06/19 at 14:29 Furosemide (Lasix) 20 mg DAILY PO Last administered on 04/02/19at 08:21; Admin Dose 20 MG; Start 04/02/19 at 09:00 Insulin Aspart (Novolog Insulin Pen) 5 unit WITH MEALS SC Last administered on 04/02/19at 12:33; Admin Dose 5 UNIT; Start 04/02/19 at 11:40 Insulin Glargine (Lantus) 22 units DAILY@2000 SC ; Start 04/02/19 at 20:00 JEANNIE NICHOLSON NP Apr 02, 2019 15:20
[2019-04-02] MEDS: FLUCONAZOLE 100 MG TAB PO SCH (16:04)
--- NOTE | 2019-04-02 16:31 | PN ---
Date/Time of Note Date/Time of Note DATE: 04/02/19 TIME: 16:28 Assessment/Plan VTE Prophylaxis Risk score (from Ns)>0 risk: 5 SCD applied (from Ns): Yes Pharmacological prophylaxis: other (plt are low and will get lower) Pharm contraindication: thrombocytopenia Lines/Catheters [facility] Type (from [facility] [place] [facility] line still needed: Yes Urinary Cath still in place: No Assessment/Plan Assessment/Plan Day 4 of induction. He is doing well without nausea. He does get some reflux however. Pancytopenia is present and likely to get worse as the chemotherapy progresses. Continue current plans. Result Diagram: 04/02/19 0423 04/02/19 0423 Results 24hrs Laboratory Tests Test 04/01/19 17:48 04/01/19 21:25 04/02/19 02:46 04/02/19 04:23 Bedside Glucose 235 H 224 H 231 H White Blood Count 1.0 #L Red Blood Count 2.73 L Hemoglobin 8.6 L Hematocrit 25.0 L Mean Corpuscular 91.6 Volume Mean Corpuscular 31.5 Hemoglobin Mean Corpuscular 34.4 Hemoglobin Concent Red Cell 13.5 Distribution Width Platelet Count 70 L Mean Platelet Volume 10.2 Immature 10.200 H Granulocytes % Neutrophils % Segmented 47 Neutrophils % (Manual) Band Neutrophils % 9 H (Manual) Lymphocytes % Lymphocytes % 38 (Manual) Monocytes % Monocytes % (Manual) 4 Eosinophils % Basophils % Blast Cells % 2.0 H (Manual) Nucleated Red Blood 0.0 Cells % Immature 0.100 H Granulocytes # Neutrophils # Neutrophils # 0.5 L (Manual) Band Neutrophils # 0.0 Lymphocytes (Manual) 0.3 L Lymphocytes # Monocytes # Monocytes # (Manual) 0.0 L Eosinophils # Basophils # Nucleated Red Blood Cells # Platelet Estimate DECREASED Hypochromasia 1+ Anisocytosis 1+ Macrocytosis 1+ Sodium Level 136 Potassium Level 4.4 Chloride Level 105 Carbon Dioxide Level 23 Anion Gap 8 Blood Urea Nitrogen 16 Creatinine 0.48 L Est Glomerular > 60 Filtrat Rate mL/min Glucose Level 203 Calcium Level 7.9 L Test 04/02/19 05:00 04/02/19 05:25 04/02/19 08:19 04/02/19 12:30 Phosphorus Level 4.1 Magnesium Level 2.2 Bedside Glucose 199 160 245 H Subjective 24 Hr Interval Summary Free Text/Dictation 54 yo man day 4 of induction with 7+3. He says that he feels well and spent a couple of hours this morning in a chair. Exam/Review of Systems Exam Vitals Vital Signs Date Temp Pulse Resp B/P (MAP) Pulse Ox O2 O2 Flow FiO2 Time Delivery Rate 04/02/19 98.0 77 18 146/85 98 Room Air 12:38 (105) Intake and Output 04/01/19 04/01/19 04/02/19 1515:00 23:00 07:00 IntakeIntake Total 300 ml 3579.668 ml 733.336 ml BalanceBalance 300 ml 3579.668 ml 733.336 ml Constitutional: alert, oriented Head: normocephalic Eyes: other (marked pallor) Neck: supple Respiratory: clear to auscultation Cardiovascular: regular rate and rhythm Gastrointestinal: soft, nl liver, spleen, non-tender Extremities: normal pulses Neurological: nl mental status, nl speech Skin: nl turgor Lymph: nl lymph nodes Results Results 24hrs Laboratory Tests Test 04/01/19 17:48 04/01/19 21:25 04/02/19 02:46 04/02/19 04:23 Bedside Glucose 235 H 224 H 231 H White Blood Count 1.0 #L Red Blood Count 2.73 L Hemoglobin 8.6 L Hematocrit 25.0 L Mean Corpuscular 91.6 Volume Mean Corpuscular 31.5 Hemoglobin Mean Corpuscular 34.4 Hemoglobin Concent Red Cell 13.5 Distribution Width Platelet Count 70 L Mean Platelet Volume 10.2 Immature 10.200 H Granulocytes % Neutrophils % Segmented 47 Neutrophils % (Manual) Band Neutrophils % 9 H (Manual) Lymphocytes % Lymphocytes % 38 (Manual) Monocytes % Monocytes % (Manual) 4 Eosinophils % Basophils % Blast Cells % 2.0 H (Manual) Nucleated Red Blood 0.0 Cells % Immature 0.100 H Granulocytes # Neutrophils # Neutrophils # 0.5 L (Manual) Band Neutrophils # 0.0 Lymphocytes (Manual) 0.3 L Lymphocytes # Monocytes # Monocytes # (Manual) 0.0 L Eosinophils # Basophils # Nucleated Red Blood Cells # Platelet Estimate DECREASED Hypochromasia 1+ Anisocytosis 1+ Macrocytosis 1+ Sodium Level 136 Potassium Level 4.4 Chloride Level 105 Carbon Dioxide Level 23 Anion Gap 8 Blood Urea Nitrogen 16 Creatinine 0.48 L Est Glomerular > 60 Filtrat Rate mL/min Glucose Level 203 Calcium Level 7.9 L Test 04/02/19 05:00 04/02/19 05:25 04/02/19 08:19 04/02/19 12:30 Phosphorus Level 4.1 Magnesium Level 2.2 Bedside Glucose 199 160 245 H Medications Medication Current Medications Insulin Aspart (Novolog Insulin Pen) NOVOLOG *MILD* ALGORITHM WITH MEALS BEDTIME SC Last administered on 04/02/19at 12:32; Admin Dose 3 UNIT; Start 03/23/19 at 18:00 IV Flush (NS 3 ml) 3 ml PER PROTOCOL IV ; Start 03/23/19 at 18:00 Ondansetron HCl (Zofran Inj) 4 mg Q6H PRN IV NAUSEA/VOMITING; Start 03/23/19 at 18:00 Acetaminophen (Tylenol Tab) 650 mg Q6H PRN PO .PAIN 1-3 OR TEMP Last administered on 03/29/19at 23:39; Admin Dose 650 MG; Start 03/23/19 at 18:00 Acetaminophen/ Hydrocodone Bitart ([place] (5/325)) 1 tab Q6H PRN PO .MOD PAIN 4- 6; Start 03/23/19 at 18:00 Polyethylene Glycol (Miralax) 17 gm BID PO Last administered on 04/02/19at 08:20; Admin Dose 17 GM; Start 03/23/19 at 21:00 Miscellaneous Information 1 ea NOTE XX ; Start 03/23/19 at 18:00 Glucose (Glutose) 15 gm Q15M PRN PO DECREASED GLUCOSE; Start 03/23/19 at 18:00 Glucose (Glutose) 22.5 gm Q15M PRN PO DECREASED GLUCOSE; Start 03/23/19 at 18:00 Dextrose (D50w Syringe) 25 ml Q15M PRN IV DECREASED GLUCOSE; Start 03/23/19 at 18:00 Dextrose (D50w Syringe) 50 ml Q15M PRN IV DECREASED GLUCOSE; Start 03/23/19 at 18:00 Glucagon (Glucagen) 1 mg Q15M PRN IM DECREASED GLUCOSE; Start 03/23/19 at 18:00 Glucose (Glutose) 15 gm Q15M PRN BUCCAL DECREASED GLUCOSE; Start 03/23/19 at 18:00 Hydralazine HCl (Apresoline) 10 mg Q4H PRN IV FOR SBP>170; Start 03/26/19 at 03:30 Albuterol/ Ipratropium (Duoneb) 3 ml Q2H RESP THERAPY PRN HHN sob; Start 03/26/19 at 12:30 Lisinopril (Zestril) 10 mg BID PO Last administered on 04/02/19 08:21; Admin Dose 10 MG; Start 03/28/19 at 09:00 Carvedilol (Coreg) 6.25 mg BID PO Last administered on 04/02/19 08:23; Admin Dose 6.25 MG; Start 03/27/19 at 21:00 Allopurinol (Zyloprim) 300 mg DAILY PO Last administered on 04/02/19 08:21; Admin Dose 300 MG; Start 03/29/19 at 15:30 Cytarabine 0.28 gm/Sodium Chloride 1,000 ml @ 41.667 mls/ hr Q24H IV Last administered on 04/01/19 18:12; Admin Dose 41.667 MLS/HR; Start 03/30/19 at 15:00; Stop 04/06/19 at 14:59 Ondansetron HCl 8 mg/Sodium Chloride 54 ml @ 216 mls/hr Q8H PRN IV NAUSEA AND/OR VOMITING; Start 03/30/19 at 14:30; Stop 04/06/19 at 14:29 Furosemide (Lasix) 20 mg DAILY PO Last administered on 04/02/19 08:21; Admin Dose 20 MG; Start 04/02/19 at 09:00 Insulin Aspart (Novolog Insulin Pen) 5 unit WITH MEALS SC Last administered on 04/02/19at 12:33; Admin Dose 5 UNIT; Start 04/02/19 at 11:40 Insulin Glargine (Lantus) 22 units DAILY@2000 SC ; Start 04/02/19 at 20:00 Fluconazole (Diflucan) 100 mg DAILY PO Last administered on 04/02/19at 16:04; Admin Dose 100 MG; Start 04/02/19 at 15:30 Acyclovir (Zovirax) 400 mg DAILY PO ; Start 04/03/19 at 09:00; Status UNV Levofloxacin (Levaquin) 500 mg DAILY@06 PO ; Start 6/26/19 at 06:00; Status UNV Doxycycline Hyclate (Vibramycin) 100 mg BID PO ; Start 04/02/19 at 21:00; Status UNV Famotidine (Pepcid) 20 mg BID PO ; Start 04/02/19 at 21:00; Status UNV BETTE MALDONADO MD Apr 02, 2019 16:31
[2019-04-02 17:42] VITALS: BP 156/97; PULSE 81; RESP 18
[2019-04-02] MEDS: CYTARABINE IV SCH (17:46)
[2019-04-02] MEDS: SOD CHLORIDE 0.9% IV SCH (17:46)
--- NOTE | 2019-04-02 18:33 | CONS ---
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 Consultation Date/Type/Reason Admit Date/Time Mar 23, 2019 at 16:10 Initial Consult Date 03/24/19 Type of Consult Cardiology Requesting Provider: KATIE PACE NP Date/Time of Note DATE: 04/02/19 TIME: 18:32 24 HR Interval Summary Free Text/Dictation No shortness of breath, chest pain, palpitations Exam/Review of Systems Vital Signs Vitals Vital Signs Date Temp Pulse Resp B/P (MAP) Pulse Ox O2 O2 Flow FiO2 Time Delivery Rate 04/02/19 97.3 81 18 156/97 99 Room Air 17:42 (116) Intake and Output 04/01/19 04/01/19 04/02/19 1515:00 23:00 07:00 IntakeIntake Total 300 ml 3579.668 ml 733.336 ml BalanceBalance 300 ml 3579.668 ml 733.336 ml Exam Constitutional: alert, oriented (No apparent distress) Head: normocephalic Respiratory: other (Coarse breath sounds bilaterally, no wheezing) Cardiovascular: regular rate and rhythm (S1-S2 heard) Gastrointestinal: soft, non-tender, bowel sounds Extremities: other (No significant edema) Labs Result Diagram: 04/02/19 0423 04/02/19 0423 Results 24hrs Laboratory Tests Test 04/01/19 21:25 04/02/19 02:46 04/02/19 04:23 04/02/19 05:00 Bedside Glucose 224 H 231 H White Blood Count 1.0 #L Red Blood Count 2.73 L Hemoglobin 8.6 L Hematocrit 25.0 L Mean Corpuscular 91.6 Volume Mean Corpuscular 31.5 Hemoglobin Mean Corpuscular 34.4 Hemoglobin Concent Red Cell 13.5 Distribution Width Platelet Count 70 L Mean Platelet Volume 10.2 Immature 10.200 H Granulocytes % Neutrophils % Segmented 47 Neutrophils % (Manual) Band Neutrophils % 9 H (Manual) Lymphocytes % Lymphocytes % 38 (Manual) Monocytes % Monocytes % (Manual) 4 Eosinophils % Basophils % Blast Cells % 2.0 H (Manual) Nucleated Red Blood 0.0 Cells % Immature 0.100 H Granulocytes # Neutrophils # Neutrophils # 0.5 L (Manual) Band Neutrophils # 0.0 Lymphocytes (Manual) 0.3 L Lymphocytes # Monocytes # Monocytes # (Manual) 0.0 L Eosinophils # Basophils # Nucleated Red Blood Cells # Platelet Estimate DECREASED Hypochromasia 1+ Anisocytosis 1+ Macrocytosis 1+ Sodium Level 136 Potassium Level 4.4 Chloride Level 105 Carbon Dioxide Level 23 Anion Gap 8 Blood Urea Nitrogen 16 Creatinine 0.48 L Est Glomerular > 60 Filtrat Rate mL/min Glucose Level 203 Calcium Level 7.9 L Phosphorus Level 4.1 Magnesium Level 2.2 Test 04/02/19 05:25 04/02/19 08:19 04/02/19 12:30 04/02/19 17:35 Bedside Glucose 199 160 245 H 187 Medications Medications Current Medications Insulin Aspart (Novolog Insulin Pen) NOVOLOG *MILD* ALGORITHM WITH MEALS BEDTIME SC Last administered on 04/02/19at 17:44; Admin Dose 2 UNIT; Start 03/23/19 at 18:00 IV Flush (NS 3 ml) 3 ml PER PROTOCOL IV ; Start 03/23/19 at 18:00 Ondansetron HCl (Zofran Inj) 4 mg Q6H PRN IV NAUSEA/VOMITING; Start 03/23/19 at 18:00 Acetaminophen (Tylenol Tab) 650 mg Q6H PRN PO .PAIN 1-3 OR TEMP Last administered on 03/29/19at 23:39; Admin Dose 650 MG; Start 03/23/19 at 18:00 Acetaminophen/ Hydrocodone Bitart ([place] (5/325)) 1 tab Q6H PRN PO .MOD PAIN 4- 6; Start 03/23/19 at 18:00 Polyethylene Glycol (Miralax) 17 gm BID PO Last administered on 04/02/19at 08:20; Admin Dose 17 GM; Start 03/23/19 at 21:00 Miscellaneous Information 1 ea NOTE XX ; Start 03/23/19 at 18:00 Glucose (Glutose) 15 gm Q15M PRN PO DECREASED GLUCOSE; Start 03/23/19 at 18:00 Glucose (Glutose) 22.5 gm Q15M PRN PO DECREASED GLUCOSE; Start 03/23/19 at 18:00 Dextrose (D50w Syringe) 25 ml Q15M PRN IV DECREASED GLUCOSE; Start 03/23/19 at 18:00 Dextrose (D50w Syringe) 50 ml Q15M PRN IV DECREASED GLUCOSE; Start 03/23/19 at 18:00 Glucagon (Glucagen) 1 mg Q15M PRN IM DECREASED GLUCOSE; Start 03/23/19 at 18:00 Glucose (Glutose) 15 gm Q15M PRN BUCCAL DECREASED GLUCOSE; Start 03/23/19 at 18:00 Hydralazine HCl (Apresoline) 10 mg Q4H PRN IV FOR SBP>170; Start 03/26/19 at 03:30 Albuterol/ Ipratropium (Duoneb) 3 ml Q2H RESP THERAPY PRN HHN sob; Start 03/26/19 at 12:30 Lisinopril (Zestril) 10 mg BID PO Last administered on 04/02/19 08:21; Admin Dose 10 MG; Start 03/28/19 at 09:00 Carvedilol (Coreg) 6.25 mg BID PO Last administered on 04/02/19 08:23; Admin Dose 6.25 MG; Start 03/27/19 at 21:00 Allopurinol (Zyloprim) 300 mg DAILY PO Last administered on 04/02/19 08:21; Admin Dose 300 MG; Start 03/29/19 at 15:30 Cytarabine 0.28 gm/Sodium Chloride 1,000 ml @ 41.667 mls/ hr Q24H IV Last administered on 04/02/19 17:46; Admin Dose 41.667 MLS/HR; Start 03/30/19 at 15:00; Stop 04/06/19 at 14:59 Ondansetron HCl 8 mg/Sodium Chloride 54 ml @ 216 mls/hr Q8H PRN IV NAUSEA AND/OR VOMITING; Start 03/30/19 at 14:30; Stop 04/06/19 at 14:29 Furosemide (Lasix) 20 mg DAILY PO Last administered on 04/02/19 08:21; Admin Dose 20 MG; Start 04/02/19 at 09:00 Insulin Aspart (Novolog Insulin Pen) 5 unit WITH MEALS SC Last administered on 6/25/19at 17:45; Admin Dose 5 UNIT; Start 04/02/19 at 11:40 Insulin Glargine (Lantus) 22 units DAILY@2000 SC ; Start 04/02/19 at 20:00 Fluconazole (Diflucan) 100 mg DAILY PO Last administered on 04/02/19at 16:04; Admin Dose 100 MG; Start 04/02/19 at 15:30 Acyclovir (Zovirax) 400 mg DAILY PO ; Start 04/03/19 at 09:00 Levofloxacin (Levaquin) 500 mg DAILY@06 PO ; Start 04/03/19 at 06:00 Doxycycline Hyclate (Vibramycin) 100 mg BID PO ; Start 04/02/19 at 21:00 Famotidine (Pepcid) 20 mg BID PO ; Start 04/02/19 at 21:00 Al Hydrox/Mg Hydrox/Simethicone (Mag-Al Plus) 30 ml Q6H PRN PO GASTROINTESTINAL UPSET; Start 04/02/19 at 18:30; Status Jun Luis DO Apr 02, 2019 18:33
[2019-04-02 20:07] VITALS: BP 152/93; PULSE 78; RESP 18
[2019-04-02] MEDS: FAMOTIDINE 20 MG TAB PO SCH (20:43)
[2019-04-02] MEDS: DOXYCYCLINE 100 MG TAB PO SCH (20:43)
[2019-04-02] MEDS: ONDANSETRON 4 MG INJ IV PRN (20:43)
[2019-04-02] MEDS: INSULIN GLARGINE [LANTus] (100 UNITS/ML) SYG SC SCH (20:48)
[2019-04-02 21:14] VITALS: BP 149/85; PULSE 79
[2019-04-03 00:26] VITALS: BP 136/81; PULSE 73; RESP 17
--- NOTE | 2019-04-03 05:43 | PN ---
Date/Time of Note Date/Time of Note DATE: 04/03/19 TIME: 05:43 Assessment/Plan VTE Prophylaxis Risk score (from Ns)>0 risk: 5 SCD applied (from [facility] [place]): No SCD contraindicated: other Pharmacological prophylaxis: NA/contraindicated Pharm contraindication: thrombocytopenia Lines/Catheters IV [facility] Type [facility]from [facility] [place] line still needed: Yes Urinary Cath still in place: No Assessment/Plan Hospital Course SUBJECTIVE: Denies any pain or dyspnea. Constipated. OBJECTIVE: Physical Exam General: Adequately build 54 year-old male lying in bed in no apparent distress. HEENT: Normocephalic, atraumatic. Eyes: Anicteric sclerae, conjunctivae clear. ENT: Nasal septum midline, oral mucosa moist. Neck supple, no JVD noticed. Respiratory: Bilaterally clear breath sounds. No use of accessory muscles of respiration. No adventitious breath sounds. Cardiovascular: S1, S2 heard. Regular rate and rhythm. Abdomen: Soft, nontender, and nondistended. Bowel sounds positive in all 4 quadrants. Genitourinary: Deferred. Extremities: No cyanosis, no clubbing, no edema. Peripheral pulses palpable. Neurologic: Cranial nerves II through XII grossly intact. The patient is awake, alert, and oriented. Skin: Normal skin turgor. No skin rashes. Labs & Vitals per chart ASSESSMENT & PLAN 54-year-old male with comorbidities including hypertension and diabetes mellitus who presented to the emergency room on 03/22/2019 with febrile illness and was discharged home on oral antibiotics, who was called back on 03/23/2019 as per the instruction of the pathologist for increased blast cells on CBC drawn on 03/22/2019. 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 2. Neutropenic fevers. On ABX as per ID. Reyes cultures remain negative. 3. Diabetes mellitus type 2. Hemoglobin A1c 9.6. Continue the patient on sliding scale insulin along with basal insulin. 4. Hypertension. Continue antihypertensives. 5. Cardiomyopathy. EF of 35-40%. Continue BBs and ACEIs. Cardiology following. 6. Acute CHF exacerbation, systolic dysfunction. Continue diuretic therapy. Switch to oral diuretic therapy. 7. Fluids, electrolytes, and nutrition. Carbohydrate controlled, neutropenic diet. 8. DVT prophylaxis. Bilateral SCDs. 9. Plan. Continue to monitor for any secondary infection. Continue chemotherapy as per oncology. The patient was seen in collaboration with Dr. Avilez. Result Diagram: 04/02/19 0423 04/02/19 0423 Results 24hrs Laboratory Tests Test 04/02/19 08:19 04/02/19 12:30 04/02/19 17:35 04/02/19 20:45 Bedside Glucose 160 245 H 187 158 Test 04/03/19 04:32 White Blood Count Pending Red Blood Count Pending Hemoglobin Pending Hematocrit Pending Mean Corpuscular Pending Volume Mean Corpuscular Pending Hemoglobin Mean Corpuscular Pending Hemoglobin Concent Red Cell Pending Distribution Width Platelet Count Pending Mean Platelet Volume Pending Exam/Review of Systems Exam Vitals Vital Signs Date Temp Pulse Resp B/P (MAP) Pulse Ox O2 O2 Flow FiO2 Time Delivery Rate 04/03/19 98.0 73 17 136/81 97 Room Air 00:26 (99) Intake and Output 04/02/19 04/02/19 04/03/19 1515:00 23:00 07:00 IntakeIntake Total 660 ml 1608.331 ml 566.668 ml BalanceBalance 660 ml 1608.331 ml 566.668 ml Results Results 24hrs Laboratory Tests Test 04/02/19 08:19 04/02/19 12:30 04/02/19 17:35 04/02/19 20:45 Bedside Glucose 160 245 H 187 158 Test 04/03/19 04:32 White Blood Count Pending Red Blood Count Pending Hemoglobin Pending Hematocrit Pending Mean Corpuscular Pending Volume Mean Corpuscular Pending Hemoglobin Mean Corpuscular Pending Hemoglobin Concent Red Cell Pending Distribution Width Platelet Count Pending Mean Platelet Volume Pending Medications Medication Current Medications Insulin Aspart (Novolog Insulin Pen) NOVOLOG *MILD* ALGORITHM WITH MEALS BEDTIME SC Last administered on 04/02/19at 17:44; Admin Dose 2 UNIT; Start 03/23/19 at 18:00 IV Flush (NS 3 ml) 3 ml PER PROTOCOL IV ; Start 03/23/19 at 18:00 Ondansetron HCl (Zofran Inj) 4 mg Q6H PRN IV NAUSEA/VOMITING Last administered on 04/02/19at 20:43; Admin Dose 4 MG; Start 03/23/19 at 18:00 Acetaminophen (Tylenol Tab) 650 mg Q6H PRN PO .PAIN 1-3 OR TEMP Last administered on 03/29/19at 23:39; Admin Dose 650 MG; Start 03/23/19 at 18:00 Acetaminophen/ Hydrocodone Bitart ([place] (5/325)) 1 tab Q6H PRN PO .MOD PAIN 4- 6; Start 03/23/19 at 18:00 Polyethylene Glycol (Miralax) 17 gm BID PO Last administered on 04/02/19at 20:43; Admin Dose 17 GM; Start 03/23/19 at 21:00 Miscellaneous Information 1 ea NOTE XX ; Start 03/23/19 at 18:00 Glucose (Glutose) 15 gm Q15M PRN PO DECREASED GLUCOSE; Start 03/23/19 at 18:00 Glucose (Glutose) 22.5 gm Q15M PRN PO DECREASED GLUCOSE; Start 03/23/19 at 18:00 Dextrose (D50w Syringe) 25 ml Q15M PRN IV DECREASED GLUCOSE; Start 03/23/19 at 18:00 Dextrose (D50w Syringe) 50 ml Q15M PRN IV DECREASED GLUCOSE; Start 03/23/19 at 18:00 Glucagon (Glucagen) 1 mg Q15M PRN IM DECREASED GLUCOSE; Start 03/23/19 at 18:00 Glucose (Glutose) 15 gm Q15M PRN BUCCAL DECREASED GLUCOSE; Start 03/23/19 at 18:00 Hydralazine HCl (Apresoline) 10 mg Q4H PRN IV FOR SBP>170; Start 03/26/19 at 03:30 Albuterol/ Ipratropium (Duoneb) 3 ml Q2H RESP THERAPY PRN HHN sob; Start 03/26/19 at 12:30 Lisinopril (Zestril) 10 mg BID PO Last administered on 04/02/19at 20:50; Admin Dose 10 MG; Start 03/28/19 at 09:00 Allopurinol (Zyloprim) 300 mg DAILY PO Last administered on 04/02/19at 08:21; Admin Dose 300 MG; Start 03/29/19 at 15:30 Cytarabine 0.28 gm/Sodium Chloride 1,000 ml @ 41.667 mls/ hr Q24H IV Last administered on 04/02/19at 17:46; Admin Dose 41.667 MLS/HR; Start 03/30/19 at 15:00; Stop 04/06/19 at 14:59 Ondansetron HCl 8 mg/Sodium Chloride 54 ml @ 216 mls/hr Q8H PRN IV NAUSEA AND/OR VOMITING; Start 03/30/19 at 14:30; Stop 04/06/19 at 14:29 Furosemide (Lasix) 20 mg DAILY PO Last administered on 04/02/19 08:21; Admin Dose 20 MG; Start 04/02/19 at 09:00 Insulin Aspart (Novolog Insulin Pen) 5 unit WITH MEALS SC Last administered on 04/02/19 17:45; Admin Dose 5 UNIT; Start 04/02/19 at 11:40 Insulin Glargine (Lantus) 22 units DAILY@2000 SC Last administered on 04/02/19 20:48; Admin Dose 22 UNITS; Start 04/02/19 at 20:00 Fluconazole (Diflucan) 100 mg DAILY PO Last administered on 04/02/19 16:04; Admin Dose 100 MG; Start 04/02/19 at 15:30 Acyclovir (Zovirax) 400 mg DAILY PO ; Start 04/03/19 at 09:00 Levofloxacin (Levaquin) 500 mg DAILY@06 PO ; Start 04/03/19 at 06:00 Doxycycline Hyclate (Vibramycin) 100 mg BID PO Last administered on 04/02/19 20:43; Admin Dose 100 MG; Start 04/02/19 at 21:00 Famotidine (Pepcid) 20 mg BID PO Last administered on 04/02/19 20:43; Admin Dose 20 MG; Start 04/02/19 at 21:00 Al Hydrox/Mg Hydrox/Simethicone (Mag-Al Plus) 30 ml Q6H PRN PO GASTROINTESTINAL UPSET; Start 04/02/19 at 18:30 Carvedilol (Coreg) 12.5 mg BID PO Last administered on 04/02/19 20:51; Admin Dose 12.5 MG; Start 04/02/19 at 21:00 KATIE PACE NP Apr 03, 2019 05:43
[2019-04-03] MEDS: LEVOFLOXACIN 500 MG TAB PO SCH (05:45)
[2019-04-03 07:18] VITALS: BP 140/78; PULSE 75; RESP 20
[2019-04-03] MEDS: INSULIN ASPART [NOVOLOG] 3 ML PEN SC SCH ×7 (07:50→21:00)
[2019-04-03] MEDS: POLYETHYLENE GLYCOL 17 GM PACKET PO SCH ×2 (08:55→21:15)
[2019-04-03] MEDS: LISINOPRIL 10 MG TAB PO SCH ×2 (08:56→21:14)
[2019-04-03] MEDS: DOXYCYCLINE 100 MG TAB PO SCH ×2 (08:56→21:15)
[2019-04-03] MEDS: FLUCONAZOLE 100 MG TAB PO SCH (08:57)
[2019-04-03] MEDS: FUROSEMIDE 20 MG TAB PO SCH (08:57)
[2019-04-03] MEDS: ALLOPURINOL 300 MG TAB PO SCH (08:57)
[2019-04-03] MEDS: FAMOTIDINE 20 MG TAB PO SCH ×2 (08:57→21:14)
[2019-04-03] MEDS: ACYCLOVIR 400 MG TAB PO SCH (08:57)
--- NOTE | 2019-04-03 11:36 | CONS ---
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 We will continue to follow trend and make further adjustments as necessary Continue lisinopril and titrate as renal function and blood pressure permits Maintain potassium above 4.0 and magnesium above 2.0. Consultation Date/Type/Reason Admit Date/Time Mar 23, 2019 at 16:10 Initial Consult Date 03/24/19 Type of Consult Cardiology Requesting Provider: KATIE PACE NP Date/Time of Note DATE: 04/03/19 TIME: 11:35 24 HR Interval Summary Free Text/Dictation Denies chest pain, palpitations or shortness of breath Exam/Review of Systems Vital Signs Vitals Vital Signs Date Temp Pulse Resp B/P (MAP) Pulse Ox O2 O2 Flow FiO2 Time Delivery Rate 04/03/19 98.4 75 20 140/78 96 Room Air 07:18 (98) Intake and Output 04/02/19 04/02/19 04/03/19 1515:00 23:00 07:00 IntakeIntake Total 660 ml 1608.331 ml 833.336 ml BalanceBalance 660 ml 1608.331 ml 833.336 ml Exam Constitutional: alert, oriented (No apparent distress) Head: normocephalic Respiratory: clear to auscultation, normal air movement Cardiovascular: regular rate and rhythm (S1-S2 heard) Gastrointestinal: soft, non-tender, bowel sounds Extremities: other (No significant edema) Labs Result Diagram: 04/03/19 0432 04/03/19 0432 Results 24hrs Laboratory Tests Test 04/02/19 12:30 04/02/19 17:35 04/02/19 20:45 04/03/19 04:32 Bedside Glucose 245 H 187 158 White Blood Count 1.9 #L Red Blood Count 2.82 L Hemoglobin 8.8 L Hematocrit 25.6 L Mean Corpuscular 90.8 Volume Mean Corpuscular 31.2 Hemoglobin Mean Corpuscular 34.4 Hemoglobin Concent Red Cell 13.4 Distribution Width Platelet Count 67 L Mean Platelet Volume 10.1 Immature 2.100 H Granulocytes % Neutrophils % Segmented 47 Neutrophils % (Manual) Band Neutrophils % 4 (Manual) Lymphocytes % Lymphocytes % 46 (Manual) Monocytes % Monocytes % (Manual) 2 Eosinophils % Basophils % Blast Cells % 1.0 H (Manual) Nucleated Red Blood 0.0 Cells % Immature 0.040 H Granulocytes # Neutrophils # Neutrophils # 0.9 L (Manual) Band Neutrophils # 0.0 Lymphocytes (Manual) 0.8 Lymphocytes # Monocytes # Monocytes # (Manual) 0.0 L Eosinophils # Basophils # Nucleated Red Blood Cells # Platelet Estimate DECREASED Sodium Level 134 L Potassium Level 3.9 Chloride Level 101 Carbon Dioxide Level 25 Anion Gap 8 Blood Urea Nitrogen 14 Creatinine 0.47 L Est Glomerular > 60 Filtrat Rate mL/min Glucose Level 103 # Calcium Level 7.8 L Phosphorus Level 3.5 Magnesium Level 2.3 Test 04/03/19 08:45 Bedside Glucose 87 Medications Medications Current Medications Insulin Aspart (Novolog Insulin Pen) NOVOLOG *MILD* ALGORITHM WITH MEALS BEDTIME SC Last administered on 04/02/19at 17:44; Admin Dose 2 UNIT; Start 03/23/19 at 18:00 IV Flush (NS 3 ml) 3 ml PER PROTOCOL IV ; Start 03/23/19 at 18:00 Ondansetron HCl (Zofran Inj) 4 mg Q6H PRN IV NAUSEA/VOMITING Last administered on 04/02/19at 20:43; Admin Dose 4 MG; Start 03/23/19 at 18:00 Acetaminophen (Tylenol Tab) 650 mg Q6H PRN PO .PAIN 1-3 OR TEMP Last administered on 03/29/19at 23:39; Admin Dose 650 MG; Start 03/23/19 at 18:00 Acetaminophen/ Hydrocodone Bitart ([place] (5/325)) 1 tab Q6H PRN PO .MOD PAIN 4- 6; Start 03/23/19 at 18:00 Polyethylene Glycol (Miralax) 17 gm BID PO Last administered on 04/03/19at 0 8:55; Admin Dose 17 GM; Start 03/23/19 at 21:00 Miscellaneous Information 1 ea NOTE XX ; Start 03/23/19 at 18:00 Glucose (Glutose) 15 gm Q15M PRN PO DECREASED GLUCOSE; Start 03/23/19 at 18:00 Glucose (Glutose) 22.5 gm Q15M PRN PO DECREASED GLUCOSE; Start 03/23/19 at 18:00 Dextrose (D50w Syringe) 25 ml Q15M PRN IV DECREASED GLUCOSE; Start 03/23/19 at 18:00 Dextrose (D50w Syringe) 50 ml Q15M PRN IV DECREASED GLUCOSE; Start 03/23/19 at 18:00 Glucagon (Glucagen) 1 mg Q15M PRN IM DECREASED GLUCOSE; Start 03/23/19 at 18:00 Glucose (Glutose) 15 gm Q15M PRN BUCCAL DECREASED GLUCOSE; Start 03/23/19 at 18:00 Hydralazine HCl (Apresoline) 10 mg Q4H PRN IV FOR SBP>170; Start 03/26/19 at 03:30 Albuterol/ Ipratropium (Duoneb) 3 ml Q2H RESP THERAPY PRN HHN sob; Start 03/26/19 at 12:30 Lisinopril (Zestril) 10 mg BID PO Last administered on 04/03/19at 08:56; Admin Dose 10 MG; Start 03/28/19 at 09:00 Allopurinol (Zyloprim) 300 mg DAILY PO Last administered on 04/03/19at 08:57; Admin Dose 300 MG; Start 03/29/19 at 15:30 Cytarabine 0.28 gm/Sodium Chloride 1,000 ml @ 41.667 mls/ hr Q24H IV Last administered on 04/02/19at 17:46; Admin Dose 41.667 MLS/HR; Start 03/30/19 at 15:00; Stop 04/06/19 at 14:59 Ondansetron HCl 8 mg/Sodium Chloride 54 ml @ 216 mls/hr Q8H PRN IV NAUSEA AND/OR VOMITING; Start 03/30/19 at 14:30; Stop 04/06/19 at 14:29 Furosemide (Lasix) 20 mg DAILY PO Last administered on 04/03/19 08:57; Admin Dose 20 MG; Start 04/02/19 at 09:00 Insulin Aspart (Novolog Insulin Pen) 5 unit WITH MEALS SC Last administered on 04/02/19at 17:45; Admin Dose 5 UNIT; Start 04/02/19 at 11:40 Insulin Glargine (Lantus) 22 units DAILY@2000 SC Last administered on 04/02/19at 20:48; Admin Dose 22 UNITS; Start 04/02/19 at 20:00 Fluconazole (Diflucan) 100 mg DAILY PO Last administered on 04/03/19 08:57; Admin Dose 100 MG; Start 04/02/19 at 15:30 Acyclovir (Zovirax) 400 mg DAILY PO Last administered on 04/03/19 08:57; Admin Dose 400 MG; Start 04/03/19 at 09:00 Levofloxacin (Levaquin) 500 mg DAILY@06 PO Last administered on 04/03/19 05:45; Admin Dose 500 MG; Start 04/03/19 at 06:00 Doxycycline Hyclate (Vibramycin) 100 mg BID PO Last administered on 04/03/19 08:56; Admin Dose 100 MG; Start 04/02/19 at 21:00 Famotidine (Pepcid) 20 mg BID PO Last administered on 04/03/19 08:57; Admin Dose 20 MG; Start 04/02/19 at 21:00 Al Hydrox/Mg Hydrox/Simethicone (Mag-Al Plus) 30 ml Q6H PRN PO GASTROINTESTINAL UPSET; Start 04/02/19 at 18:30 Carvedilol (Coreg) 12.5 mg BID PO Last administered on 04/03/19 08:57; Admin Dose 12.5 MG; Start 04/02/19 at 21:00 Jun Ayala DO Apr 03, 2019 11:36
[2019-04-03 13:15] VITALS: BP 140/80; PULSE 71; RESP 18
[2019-04-03 15:40] VITALS: BP 157/85; PULSE 74; RESP 18
--- NOTE | 2019-04-03 16:18 | CONS ---
Assessment/Plan Assessment/Plan Hospital Course (Demo Recall) No acute changes overnight. Patient is alert, feels ok, denies pain Indwelling's: Right IJ Port-A-Cath Blood cultures and urine culture negative Antimicrobials: Doxycycline, levofloxacin, fluconazole, acyclovir Physical examination: Well-developed middle-aged man who is alert in no distress head atraumatic normocephalic sclera nonicteric vehicle mucosa pink neck is supple chest rise symmetrical breath sounds clear Heart S1-S2 abdomen soft bowel sounds present extremities without cyanosis edema Assessment: 1. S/p neutropenia 2. AML, newly diagnosed 3. Diabetes 4. Hypertension 5. Pancytopenia Plan: Clinically stable, continue prophylactic coverage, follow oncology re commendations Consultation Date/Type/Reason Admit Date/Time Mar 23, 2019 at 16:10 Initial Consult Date 03/24/19 Type of Consult id Requesting Provider: KATIE PACE NP Date/Time of Note DATE: 04/03/19 TIME: 16:17 Exam/Review of Systems Exam Vitals Vital Signs Date Temp Pulse Resp B/P (MAP) Pulse Ox O2 O2 Flow FiO2 Time Delivery Rate 04/03/19 98.4 74 18 157/85 99 Room Air 15:40 (109) Intake and Output 04/02/19 04/02/19 04/03/19 1515:00 23:00 07:00 IntakeIntake Total 660 ml 1608.331 ml 833.336 ml BalanceBalance 660 ml 1608.331 ml 833.336 ml Results Result Diagram: 04/03/19 0432 04/03/19 0432 Results 24hrs Laboratory Tests Test 04/02/19 17:35 04/02/19 20:45 04/03/19 04:32 04/03/19 08:45 Bedside Glucose 187 158 87 White Blood Count 1.9 #L Red Blood Count 2.82 L Hemoglobin 8.8 L Hematocrit 25.6 L Mean Corpuscular 90.8 Volume Mean Corpuscular 31.2 Hemoglobin Mean Corpuscular 34.4 Hemoglobin Concent Red Cell 13.4 Distribution Width Platelet Count 67 L Mean Platelet Volume 10.1 Immature 2.100 H Granulocytes % Neutrophils % Segmented 47 Neutrophils % (Manual) Band Neutrophils % 4 (Manual) Lymphocytes % Lymphocytes % 46 (Manual) Monocytes % Monocytes % (Manual) 2 Eosinophils % Basophils % Blast Cells % 1.0 H (Manual) Nucleated Red Blood 0.0 Cells % Immature 0.040 H Granulocytes # Neutrophils # Neutrophils # 0.9 L (Manual) Band Neutrophils # 0.0 Lymphocytes (Manual) 0.8 Lymphocytes # Monocytes # Monocytes # (Manual) 0.0 L Eosinophils # Basophils # Nucleated Red Blood Cells # Platelet Estimate DECREASED Sodium Level 134 L Potassium Level 3.9 Chloride Level 101 Carbon Dioxide Level 25 Anion Gap 8 Blood Urea Nitrogen 14 Creatinine 0.47 L Est Glomerular > 60 Filtrat Rate mL/min Glucose Level 103 # Uric Acid 2.2 L Calcium Level 7.8 L Phosphorus Level 3.5 Magnesium Level 2.3 Test 04/03/19 13:11 Bedside Glucose 138 Medications Medication Current Medications Insulin Aspart (Novolog Insulin Pen) NOVOLOG *MILD* ALGORITHM WITH MEALS BEDTIME SC Last administered on 04/02/19at 17:44; Admin Dose 2 UNIT; Start 03/23/19 at 18:00 IV Flush (NS 3 ml) 3 ml PER PROTOCOL IV ; Start 03/23/19 at 18:00 Ondansetron HCl (Zofran Inj) 4 mg Q6H PRN IV NAUSEA/VOMITING Last administered on 04/02/19at 20:43; Admin Dose 4 MG; Start 03/23/19 at 18:00 Acetaminophen (Tylenol Tab) 650 mg Q6H PRN PO .PAIN 1-3 OR TEMP Last administered on 03/29/19at 23:39; Admin Dose 650 MG; Start 03/23/19 at 18:00 Acetaminophen/ Hydrocodone Bitart ([place] (5/325)) 1 tab Q6H PRN PO .MOD PAIN 4- 6; Start 03/23/19 at 18:00 Polyethylene Glycol (Miralax) 17 gm BID PO Last administered on 04/03/19at 08:55; Admin Dose 17 GM; Start 03/23/19 at 21:00 Miscellaneous Information 1 ea NOTE XX ; Start 03/23/19 at 18:00 Glucose (Glutose) 15 gm Q15M PRN PO DECREASED GLUCOSE; Start 03/23/19 at 18:00 Glucose (Glutose) 22.5 gm Q15M PRN PO DECREASED GLUCOSE; Start 03/23/19 at 18:00 Dextrose (D50w Syringe) 25 ml Q15M PRN IV DECREASED GLUCOSE; Start 03/23/19 at 18:00 Dextrose (D50w Syringe) 50 ml Q15M PRN IV DECREASED GLUCOSE; Start 03/23/19 at 18:00 Glucagon (Glucagen) 1 mg Q15M PRN IM DECREASED GLUCOSE; Start 03/23/19 at 18:00 Glucose (Glutose) 15 gm Q15M PRN BUCCAL DECREASED GLUCOSE; Start 03/23/19 at 18:00 Hydralazine HCl (Apresoline) 10 mg Q4H PRN IV FOR SBP>170; Start 03/26/19 at 03:30 Albuterol/ Ipratropium (Duoneb) 3 ml Q2H RESP THERAPY PRN HHN sob; Start 03/26/19 at 12:30 Lisinopril (Zestril) 10 mg BID PO Last administered on 04/03/19 08:56; Admin Dose 10 MG; Start 03/28/19 at 09:00 Allopurinol (Zyloprim) 300 mg DAILY PO Last administered on 04/03/19 08:57; Admin Dose 300 MG; Start 03/29/19 at 15:30 Cytarabine 0.28 gm/Sodium Chloride 1,000 ml @ 41.667 mls/ hr Q24H IV Last administered on 04/02/19 17:46; Admin Dose 41.667 MLS/HR; Start 03/30/19 at 15:00; Stop 04/06/19 at 14:59 Ondansetron HCl 8 mg/Sodium Chloride 54 ml @ 216 mls/hr Q8H PRN IV NAUSEA AND/OR VOMITING; Start 03/30/19 at 14:30; Stop 04/06/19 at 14:29 Furosemide (Lasix) 20 mg DAILY PO Last administered on 04/03/19 08:57; Admin D ose 20 MG; Start 04/02/19 at 09:00 Insulin Aspart (Novolog Insulin Pen) 5 unit WITH MEALS SC Last administered on 04/03/19 13:21; Admin Dose 5 UNIT; Start 04/02/19 at 11:40 Insulin Glargine (Lantus) 22 units DAILY@2000 SC Last administered on 04/02/19at 20:48; Admin Dose 22 UNITS; Start 04/02/19 at 20:00 Fluconazole (Diflucan) 100 mg DAILY PO Last administered on 6/26/19at 08:57; Admin Dose 100 MG; Start 04/02/19 at 15:30 Acyclovir (Zovirax) 400 mg DAILY PO Last administered on 04/03/19at 08:57; Admin Dose 400 MG; Start 04/03/19 at 09:00 Levofloxacin (Levaquin) 500 mg DAILY@06 PO Last administered on 04/03/19at 05:45; Admin Dose 500 MG; Start 04/03/19 at 06:00 Doxycycline Hyclate (Vibramycin) 100 mg BID PO Last administered on 04/03/19at 08:56; Admin Dose 100 MG; Start 04/02/19 at 21:00 Famotidine (Pepcid) 20 mg BID PO Last administered on 04/03/19at 08:57; Admin Dose 20 MG; Start 04/02/19 at 21:00 Al Hydrox/Mg Hydrox/Simethicone (Mag-Al Plus) 30 ml Q6H PRN PO GASTROINTESTINAL UPSET; Start 04/02/19 at 18:30 Carvedilol (Coreg) 12.5 mg BID PO Last administered on 04/03/19at 08:57; Admin Dose 12.5 MG; Start 04/02/19 at 21:00 JEANNIE NICHOLSON NP Apr 03, 2019 16:18
[2019-04-03] MEDS: SOD CHLORIDE 0.9% IV SCH (17:20)
[2019-04-03] MEDS: CYTARABINE IV SCH (17:20)
[2019-04-03 19:25] VITALS: BP 152/80; PULSE 75; RESP 20
--- NOTE | 2019-04-03 19:30 | PN ---
DATE: 04/03/2019 SUBJECTIVE: The patient states that he is feeling well. He is not complaining of any mouth discomfo rt or dysphagia. Has had some mild diarrhea. He denies any shaking chills or fever. No complaints of abdominal pain or nausea or vomiting. No ey e discomfort. OBJECTIVE: GENERAL: The patient is a well-developed, well-nourished male in no acute distress. VITAL SIGNS: Temperature 98.4 orally, pulse 74 per minute and regular, respirations 18, blood pressu re is 157/85, pulse oximetry 99% on room air. SKIN: No petechia, but there are diffuse ecchymoses, particularly on the arms. HEENT: Normocephalic. No evidence of trauma. Pupils equal, round, reactive to light and accommodat ion. Sclerae nonicteric. There is no conjunctival irritation. Oral mucosa is moist without lesions . Tongue is well papillated. No gingival hyperplasia, no hypertrophy of Waldeyer's ring, no mucosal telangiectasias. NECK: Supple, no jugular venous distention or thyroid enlargement. CHEST: Clear to auscultation and percussion. No rhonchi, wheezes, rales or rubs. There is a double lumen [place] catheter in place in the patient's right anterior chest wall. HEART: Regular sinus rhythm, no S3, S4 or murmurs. ABDOMEN: Soft, no masses, no ascites. EXTREMITIES: Good range of motion. No clubbing, no edema or cyanosis. No palpable cords or Homans sign. NEUROLOGIC: Normal. LABORATORY DATA: White count 1900 with absolute neutrophil count of 900. There are 1% blasts noted. Hemoglobin was 8.8, hematocrit 25.6 and platelet count is 67,000. Sodium 134, potassium 3.9, creatinine 0.47, BUN 14. Uric acid is 2.2. ASSESSMENT: Acute myelogenous leukemia, undergoing induction chemotherapy. DISCUSSION: This is day 5 of chemotherapy. The patient has completed 3 days of daunorubicin. He is now starting the fifth day of infusion of cytosine arabinoside. The patient seems to be tolerating therapy well. He is mildly depressed. I have discussed findings with the patient. I have again reinforced that all that he is experiencing is expected. I have expl ained that the ecchymoses are expected anticipated as well and that he will likely require transfusio ns in the future. We will continue to monitor the patient's CBC and electrolytes. I will also repeat coagulation studi es in the morning. The patient does not have any evidence of conjunctival irritation, but we will start the patient on c orticosteroid ophthalmic solution. Dictated By: ERIN COLLADO MD SR/NTS Conf#: [id number] DID#: [id number] CC: MELLISA ORR MD; KURTIS WHITTAKER MD;*EndCC*
[2019-04-03] MEDS: INSULIN GLARGINE [LANTus] (100 UNITS/ML) SYG SC SCH (21:12)
[2019-04-03] MEDS: DEXAMETHASONE 0.1% 5 ML OPH BOTH EYES SCH (21:18)
[2019-04-04 00:15] VITALS: BP 147/85; PULSE 74; RESP 20
[2019-04-04] MEDS: HYDROCODONE/APAP (5/325) TAB PO PRN ×3 (01:20→20:20)
[2019-04-04] MEDS: LEVOFLOXACIN 500 MG TAB PO SCH (05:21)
--- NOTE | 2019-04-04 07:38 | PN ---
Date/Time of Note Date/Time of Note DATE: 04/04/19 TIME: 07:38 Assessment/Plan VTE Prophylaxis Risk score (from Nsg)>0 risk: 5 SCD applied (from Ns): Yes Pharmacological prophylaxis: NA/contraindicated Pharm contraindication: thrombocytopenia [facility] [place] [facility] line still needed: Yes Urinary Cath still in place: No Assessment/Plan Hospital Course SUBJECTIVE: Denies any pain or dyspnea. Minimal nausea reported. OBJECTIVE: Physical Exam General: Adequately build 54 year-old male lying in bed in no apparent distress. HEENT: Normocephalic, atraumatic. Eyes: Anicteric sclerae, conjunctivae clear. ENT: Nasal septum midline, oral mucosa moist. Neck supple, no JVD noticed. Respiratory: Bilaterally clear breath sounds. No use of accessory muscles of respiration. No adventitious breath sounds. Cardiovascular: S1, S2 heard. Regular rate and rhythm. Abdomen: Soft, nontender, and nondistended. Bowel sounds positive in all 4 quadrants. Genitourinary: Deferred. Extremities: No cyanosis, no clubbing, no edema. Peripheral pulses palpable. Neurologic: Cranial nerves II through XII grossly intact. The patient is awake, alert, and oriented. Skin: Normal skin turgor. No skin rashes. Labs & Vitals per chart ASSESSMENT & PLAN 54-year-old male with comorbidities including hypertension and diabetes mellitus who presented to the emergency room on 03/22/2019 with febrile illness and was discharged home on oral antibiotics, who was called back on 03/23/2019 as per the instruction of the pathologist for increased blast cells on CBC drawn on 03/22/2019. 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 2. Neutropenic fevers. On ABX as per ID. Reyes cultures remain negative. 3. Diabetes mellitus type 2. Hemoglobin A1c 9.6. Continue the patient on sliding scale insulin along with basal insulin. 4. Hypertension. Continue antihypertensives. 5. Cardiomyopathy. EF of 35-40%. Continue BBs and ACEIs. Cardiology following. 6. Acute CHF exacerbation, systolic dysfunction. Continue diuretic therapy. Switch to oral diuretic therapy. 7. Fluids, electrolytes, and nutrition. Carbohydrate controlled, neutropenic diet. 8. DVT prophylaxis. Bilateral SCDs. 9. Plan. Continue to monitor for any secondary infection. Continue chemotherapy as per oncology. The patient was seen in collaboration with Dr. Avilez. Result Diagram: 04/04/19 0451 04/04/19 0451 Results 24hrs Laboratory Tests Test 04/03/19 08:45 04/03/19 13:11 04/03/19 17:50 04/03/19 19:35 Bedside Glucose 87 138 140 Prothrombin Time 14.4 Prothrombin Time 1.1 Ratio INR International 1.11 Normalized Ratio Activated 28.2 Partial Thromboplast Time Fibrinogen 395.0 # Test 04/03/19 21:09 04/04/19 04:51 Bedside Glucose 131 White Blood Count 1.5 #L Red Blood Count 2.61 L Hemoglobin 8.3 L Hematocrit 24.4 L Mean Corpuscular 93.5 Volume Mean Corpuscular 31.8 Hemoglobin Mean Corpuscular 34.0 Hemoglobin Concent Red Cell 13.5 Distribution Width Platelet Count 46 #L Mean Platelet Volume 10.2 Immature 1.400 H Granulocytes % Neutrophils % Lymphocytes % Monocytes % Eosinophils % Basophils % Nucleated Red Blood 0.0 Cells % Immature 0.020 Granulocytes # Neutrophils # Lymphocytes # Monocytes # Eosinophils # Basophils # Nucleated Red Blood Cells # Sodium Level 137 Potassium Level 3.8 Chloride Level 105 Carbon Dioxide Level 24 Anion Gap 8 Blood Urea Nitrogen 12 Creatinine 0.47 L Est Glomerular > 60 Filtrat Rate mL/min Glucose Level 71 Calcium Level 7.9 L Phosphorus Level 4.0 Magnesium Level 2.3 Exam/Review of Systems Exam Vitals Vital Signs Date Temp Pulse Resp B/P (MAP) Pulse Ox O2 O2 Flow FiO2 Time Delivery Rate 04/04/19 98.2 74 20 147/85 97 Room Air 00:15 (105) Intake and Output 04/03/19 04/03/19 04/04/19 1515:00 23:00 07:00 IntakeIntake Total 500 ml 658.337 ml 791.587 ml OutputOutput Total 2 ml 1 ml BalanceBalance 498 ml 657.337 ml 791.587 ml Results Results 24hrs Laboratory Tests Test 04/03/19 08:45 04/03/19 13:11 04/03/19 17:50 04/03/19 19:35 Bedside Glucose 87 138 140 Prothrombin Time 14.4 Prothrombin Time 1.1 Ratio INR International 1.11 Normalized Ratio Activated 28.2 Partial Thromboplast Time Fibrinogen 395.0 # Test 04/03/19 21:09 04/04/19 04:51 Bedside Glucose 131 White Blood Count 1.5 #L Red Blood Count 2.61 L Hemoglobin 8.3 L Hematocrit 24.4 L Mean Corpuscular 93.5 Volume Mean Corpuscular 31.8 Hemoglobin Mean Corpuscular 34.0 Hemoglobin Concent Red Cell 13.5 Distribution Width Platelet Count 46 #L Mean Platelet Volume 10.2 Immature 1.400 H Granulocytes % Neutrophils % Lymphocytes % Monocytes % Eosinophils % Basophils % Nucleated Red Blood 0.0 Cells % Immature 0.020 Granulocytes # Neutrophils # Lymphocytes # Monocytes # Eosinophils # Basophils # Nucleated Red Blood Cells # Sodium Level 137 Potassium Level 3.8 Chloride Level 105 Carbon Dioxide Level 24 Anion Gap 8 Blood Urea Nitrogen 12 Creatinine 0.47 L Est Glomerular > 60 Filtrat Rate mL/min Glucose Level 71 Calcium Level 7.9 L Phosphorus Level 4.0 Magnesium Level 2.3 Medications Medication Current Medications Insulin Aspart (Novolog Insulin Pen) NOVOLOG *MILD* ALGORITHM WITH MEALS BEDTIME SC Last administered on 04/02/19 17:44; Admin Dose 2 UNIT; Start 03/23/19 at 18:00 IV Flush (NS 3 ml) 3 ml PER PROTOCOL IV ; Start 03/23/19 at 18:00 Ondansetron HCl (Zofran Inj) 4 mg Q6H PRN IV NAUSEA/VOMITING Last administered on 04/02/19at 20:43; Admin Dose 4 MG; Start 03/23/19 at 18:00 Acetaminophen (Tylenol Tab) 650 mg Q6H PRN PO .PAIN 1-3 OR TEMP Last administered on 03/29/19at 23:39; Admin Dose 650 MG; Start 03/23/19 at 18:00 Acetaminophen/ Hydrocodone Bitart ([place] (5/325)) 1 tab Q6H PRN PO .MOD PAIN 4- 6 Last administered on 04/04/19 01:20; Admin Dose 1 TAB; Start 03/23/19 at 18:00 Polyethylene Glycol (Miralax) 17 gm BID PO Last administered on 04/03/19at 21:15 ; Admin Dose 17 GM; Start 03/23/19 at 21:00 Miscellaneous Information 1 ea NOTE XX ; Start 03/23/19 at 18:00 Glucose (Glutose) 15 gm Q15M PRN PO DECREASED GLUCOSE; Start 03/23/19 at 18:00 Glucose (Glutose) 22.5 gm Q15M PRN PO DECREASED GLUCOSE; Start 03/23/19 at 18:00 Dextrose (D50w Syringe) 25 ml Q15M PRN IV DECREASED GLUCOSE; Start 03/23/19 at 18:00 Dextrose (D50w Syringe) 50 ml Q15M PRN IV DECREASED GLUCOSE; Start 03/23/19 at 18:00 Glucagon (Glucagen) 1 mg Q15M PRN IM DECREASED GLUCOSE; Start 03/23/19 at 18:00 Glucose (Glutose) 15 gm Q15M PRN BUCCAL DECREASED GLUCOSE; Start 03/23/19 at 18:00 Hydralazine HCl (Apresoline) 10 mg Q4H PRN IV FOR SBP>170; Start 03/26/19 at 03:30 Albuterol/ Ipratropium (Duoneb) 3 ml Q2H RESP THERAPY PRN HHN sob; Start 03/26/19 at 12:30 Lisinopril (Zestril) 10 mg BID PO Last administered on 04/03/19at 21:14; Admin Dose 10 MG; Start 03/28/19 at 09:00 Allopurinol (Zyloprim) 300 mg DAILY PO Last administered on 04/03/19at 08:57; Admin Dose 300 MG; Start 03/29/19 at 15:30 Cytarabine 0.28 gm/Sodium Chloride 1,000 ml @ 41.667 mls/ hr Q24H IV Last admi nistered on 04/03/19at 17:20; Admin Dose 41.667 MLS/HR; Start 03/30/19 at 15:00; Stop 04/06/19 at 14:59 Ondansetron HCl 8 mg/Sodium Chloride 54 ml @ 216 mls/hr Q8H PRN IV NAUSEA AND/OR VOMITING; Start 03/30/19 at 14:30; Stop 04/06/19 at 14:29 Furosemide (Lasix) 20 mg DAILY PO Last administered on 04/03/19at 08:57; Admin Dose 20 MG; Start 04/02/19 at 09:00 Insulin Aspart (Novolog Insulin Pen) 5 unit WITH MEALS SC Last administered on 04/03/19at 17:52; Admin Dose 5 UNIT; Start 04/02/19 at 11:40 Insulin Glargine (Lantus) 22 units DAILY@2000 SC Last administered on 04/03/19 21:12; Admin Dose 22 UNITS; Start 04/02/19 at 20:00 Fluconazole (Diflucan) 100 mg DAILY PO Last administered on 04/03/19 08:57; Admin Dose 100 MG; Start 04/02/19 at 15:30 Acyclovir (Zovirax) 400 mg DAILY PO Last administered on 04/03/19 08:57; Admin Dose 400 MG; Start 04/03/19 at 09:00 Levofloxacin (Levaquin) 500 mg DAILY@06 PO Last administered on 04/04/19 05:21; Admin Dose 500 MG; Start 04/03/19 at 06:00 Doxycycline Hyclate (Vibramycin) 100 mg BID PO Last administered on 04/03/19 21:15; Admin Dose 100 MG; Start 04/02/19 at 21:00 Famotidine (Pepcid) 20 mg BID PO Last administered on 04/03/19 21:14; Admin Dose 20 MG; Start 04/02/19 at 21:00 Al Hydrox/Mg Hydrox/Simethicone (Mag-Al Plus) 30 ml Q6H PRN PO GASTROINTESTINAL UPSET; Start 04/02/19 at 18:30 Carvedilol (Coreg) 12.5 mg BID PO Last administered on 04/03/19 21:15; Admin Dose 12.5 MG; Start 04/02/19 at 21:00 Dexamethasone (Maxidex 0.1% Oph) 2 drop BID BOTH EYES Last administered on 04/03/19 21:18; Admin Dose 2 DROP; Start 04/03/19 at 21:00 KATIE PACE NP Apr 04, 2019 07:38
[2019-04-04 07:48] VITALS: BP 147/84; PULSE 68; RESP 18
[2019-04-04] MEDS: INSULIN ASPART [NOVOLOG] 3 ML PEN SC SCH ×7 (07:50→21:00)
[2019-04-04] MEDS: DOXYCYCLINE 100 MG TAB PO SCH ×2 (08:34→20:21)
[2019-04-04] MEDS: ALLOPURINOL 300 MG TAB PO SCH (08:34)
[2019-04-04] MEDS: POLYETHYLENE GLYCOL 17 GM PACKET PO SCH ×2 (08:34→20:24)
[2019-04-04] MEDS: FAMOTIDINE 20 MG TAB PO SCH ×2 (08:34→20:23)
[2019-04-04] MEDS: FLUCONAZOLE 100 MG TAB PO SCH (08:34)
[2019-04-04] MEDS: DEXAMETHASONE 0.1% 5 ML OPH BOTH EYES SCH ×2 (08:36→20:40)
[2019-04-04] MEDS: ACYCLOVIR 400 MG TAB PO SCH (08:36)
[2019-04-04] MEDS: LISINOPRIL 10 MG TAB PO SCH ×2 (08:36→20:23)
[2019-04-04] MEDS: FUROSEMIDE 20 MG TAB PO SCH (08:37)
--- NOTE | 2019-04-04 13:35 | CONS ---
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 Diabetes Hypertension Continue maintenance diuretics as needed Blood pressure trend improved after increasing carvedilol. We will continue to follow trend and make further adjustments as necessary Continue lisinopril and titrate as renal function and blood pressure permits Consultation Date/Type/Reason Admit Date/Time Mar 23, 2019 at 16:10 Initial Consult Date 03/24/19 Type of Consult Cardiology Requesting Provider: KATIE PACE NP Date/Time of Note DATE: 04/04/19 TIME: 13:34 24 HR Interval Summary Free Text/Dictation No chest pain, shortness of breath or palpitations Exam/Review of Systems Vital Signs Vitals Vital Signs Date Temp Pulse Resp B/P (MAP) Pulse Ox O2 O2 Flow FiO2 Time Delivery Rate 04/04/19 98.4 68 18 147/84 95 Room Air 07:48 (105) Intake and Output 04/03/19 04/03/19 04/04/19 1515:00 23:00 07:00 IntakeIntake Total 500 ml 658.337 ml 791.587 ml OutputOutput Total 2 ml 1 ml BalanceBalance 498 ml 657.337 ml 791.587 ml Exam Constitutional: alert, oriented, well developed Head: normocephalic Respiratory: clear to auscultation, normal air movement Cardiovascular: regular rate and rhythm (S1-S2 heard) Gastrointestinal: soft, non-tender, bowel sounds Extremities: other (No edema) Labs Result Diagram: 04/04/19 0451 04/04/19 0451 Results 24hrs Laboratory Tests Test 04/03/19 17:50 04/03/19 19:35 04/03/19 21:09 04/04/19 04:51 Bedside Glucose 140 131 Prothrombin Time 14.4 Prothrombin Time 1.1 Ratio INR International 1.11 Normalized Ratio Activated 28.[address] Time Fibrinogen 395.0 # White Blood Count 1.5 #L Red Blood Count 2.61 L Hemoglobin 8.3 L Hematocrit 24.4 L Mean Corpuscular 93.5 Volume Mean Corpuscular 31.8 Hemoglobin Mean Corpuscular 34.0 Hemoglobin Concent Red Cell 13.5 Distribution Width Platelet Count 46 #L Mean Platelet 10.2 Volume Immature 1.400 H Granulocytes % Neutrophils % Segmented 29 L Neutrophils % (Manual) Band Neutrophils % 4 (Manual) Lymphocytes % Lymphocytes % 66 H (Manual) Monocytes % Monocytes % 1 (Manual) Eosinophils % Basophils % Nucleated Red 0.0 Blood Cells % Immature 0.020 Granulocytes # Neutrophils # Neutrophils # 0.4 L (Manual) Band Neutrophils # 0.0 Lymphocytes 0.9 (Manual) Lymphocytes # Monocytes # Monocytes # 0.0 L (Manual) Eosinophils # Basophils # Nucleated Red Blood Cells # Platelet Estimate SIG DECREASED Poikilocytosis 1+ Anisocytosis 1+ Target Cells 1+ Sodium Level 137 Potassium Level 3.8 Chloride Level 105 Carbon Dioxide 24 Level Anion Gap 8 Blood Urea 12 Nitrogen Creatinine 0.47 L Est Glomerular > 60 Filtrat Rate mL/min Glucose Level 71 Calcium Level 7.9 L Phosphorus Level 4.0 Magnesium Level 2.3 Test 04/04/19 08:33 04/04/19 12:46 Bedside Glucose 78 130 Medications Medications Current Medications Insulin Aspart (Novolog Insulin Pen) NOVOLOG *MILD* ALGORITHM WITH MEALS BEDTIME SC Last administered on 04/02/19 17:44; Admin Dose 2 UNIT; Start 03/23/19 at 18:00 IV Flush (NS 3 ml) 3 ml PER PROTOCOL IV ; Start 03/23/19 at 18:00 Ondansetron HCl (Zofran Inj) 4 mg Q6H PRN IV NAUSEA/VOMITING Last administered on 04/02/19 20:43; Admin Dose 4 MG; Start 03/23/19 at 18:00 Acetaminophen (Tylenol Tab) 650 mg Q6H PRN PO .PAIN 1-3 OR TEMP Last administered on 03/29/19 23:39; Admin Dose 650 MG; Start 03/23/19 at 18:00 Acetaminophen/ Hydrocodone Bitart ([place] (5/325)) 1 tab Q6H PRN PO .MOD PAIN 4- 6 Last administered on 04/04/19 11:45; Admin Dose 1 TAB; Start 03/23/19 at 18:00 Polyethylene Glycol (Miralax) 17 gm BID PO Last administered on 04/04/19 08:34; Admin Dose 17 GM; Start 03/23/19 at 21:00 Miscellaneous Information 1 ea NOTE XX ; Start 03/23/19 at 18:00 Glucose (Glutose) 15 gm Q15M PRN PO DECREASED GLUCOSE; Start 03/23/19 at 18:00 Glucose (Glutose) 22.5 gm Q15M PRN PO DECREASED GLUCOSE; Start 03/23/19 at 18:00 Dextrose (D50w Syringe) 25 ml Q15M PRN IV DECREASED GLUCOSE; Start 03/23/19 at 18:00 Dextrose (D50w Syringe) 50 ml Q15M PRN IV DECREASED GLUCOSE; Start 03/23/19 at 18:00 Glucagon (Glucagen) 1 mg Q15M PRN IM DECREASED GLUCOSE; Start 03/23/19 at 18:00 Glucose (Glutose) 15 gm Q15M PRN BUCCAL DECREASED GLUCOSE; Start 03/23/19 at 18:00 Hydralazine HCl (Apresoline) 10 mg Q4H PRN IV FOR SBP>170; Start 03/26/19 at 03:30 Albuterol/ Ipratropium (Duoneb) 3 ml Q2H RESP THERAPY PRN HHN sob; Start 03/26/19 at 12:30 Lisinopril (Zestril) 10 mg BID PO Last administered on 04/04/19at 08:36; Admin D ose 10 MG; Start 03/28/19 at 09:00 Allopurinol (Zyloprim) 300 mg DAILY PO Last administered on 04/04/19at 08:34; Admin Dose 300 MG; Start 03/29/19 at 15:30 Cytarabine 0.28 gm/Sodium Chloride 1,000 ml @ 41.667 mls/ hr Q24H IV Last administered on 04/03/19at 17:20; Admin Dose 41.667 MLS/HR; Start 03/30/19 at 15:00; Stop 04/06/19 at 14:59 Ondansetron HCl 8 mg/Sodium Chloride 54 ml @ 216 mls/hr Q8H PRN IV NAUSEA AND/OR VOMITING; Start 03/30/19 at 14:30; Stop 04/06/19 at 14:29 Furosemide (Lasix) 20 mg DAILY PO Last administered on 04/04/19at 08:37; Admin Dose 20 MG; Start 04/02/19 at 09:00 Insulin Aspart (Novolog Insulin Pen) 5 unit WITH MEALS SC Last administered on 04/04/19at 12:50; Admin Dose 5 UNIT; Start 04/02/19 at 11:40 Insulin Glargine (Lantus) 22 units DAILY@2000 SC Last administered on 04/03/19 21:12; Admin Dose 22 UNITS; Start 04/02/19 at 20:00 Fluconazole (Diflucan) 100 mg DAILY PO Last administered on 04/04/19 08:34; Admin Dose 100 MG; Start 04/02/19 at 15:30 Acyclovir (Zovirax) 400 mg DAILY PO Last administered on 04/04/19 08:36; Admin Dose 400 MG; Start 04/03/19 at 09:00 Levofloxacin (Levaquin) 500 mg DAILY@06 PO Last administered on 04/04/19 05:21; Admin Dose 500 MG; Start 04/03/19 at 06:00 Doxycycline Hyclate (Vibramycin) 100 mg BID PO Last administered on 04/04/19 08:34; Admin Dose 100 MG; Start 04/02/19 at 21:00 Famotidine (Pepcid) 20 mg BID PO Last administered on 04/04/19 08:34; Admin Dose 20 MG; Start 04/02/19 at 21:00 Al Hydrox/Mg Hydrox/Simethicone (Mag-Al Plus) 30 ml Q6H PRN PO GASTROINTESTINAL UPSET; Start 04/02/19 at 18:30 Carvedilol (Coreg) 12.5 mg BID PO Last administered on 04/04/19 08:35; Admin Dose 12.5 MG; Start 04/02/19 at 21:00 Dexamethasone (Maxidex 0.1% Oph) 2 drop BID BOTH EYES Last administered on 04/04/19 08:36; Admin Dose 2 DROP; Start 04/03/19 at 21:00 Jun Ayala DO Apr 04, 2019 13:35
--- NOTE | 2019-04-04 14:53 | CONS ---
Assessment/Plan Assessment/Plan Hospital Course (Demo Recall) Patient is alert sitting comfortably in the chair denies pain no fevers overnight WBC 1.5 BUN 12 creatinine 0.47 Indwelling's: Right IJ Port-A-Cath Blood cultures and urine culture negative Antimicrobials: Doxycycline, levofloxacin, fluconazole, acyclovir Physical examination: Well-developed middle-aged man who is alert in no distress head atraumatic normocephalic sclera nonicteric vehicle mucosa pink neck is supple chest rise symmetrical breath sounds clear Heart S1-S2 abdomen soft bowel sounds present extremities without cyanosis edema Assessment: 1. S/p neutropenia 2. AML, newly diagnosed 3. Diabetes 4. Hypertension 5. Pancytopenia Plan: Clinically stable, continue prophylactic antimicrobials, follow oncology recommendations Consultation Date/Type/Reason Admit Date/Time Mar 23, 2019 at 16:10 Initial Consult Date 03/24/19 Type of Consult id Requesting Provider: KATIE PACE NP Date/Time of Note DATE: 04/04/19 TIME: 14:53 Exam/Review of Systems Exam Vitals Vital Signs Date Temp Pulse Resp B/P (MAP) Pulse Ox O2 O2 Flow FiO2 Time Delivery Rate 04/04/19 98.4 68 18 147/84 95 Room Air 07:48 (105) Intake and Output 04/03/19 04/03/19 04/04/19 1515:00 23:00 07:00 IntakeIntake Total 500 ml 658.337 ml 791.587 ml OutputOutput Total 2 ml 1 ml BalanceBalance 498 ml 657.337 ml 791.587 ml Results Result Diagram: 04/04/19 0451 04/04/19 0451 Results 24hrs Laboratory Tests Test 04/03/19 17:50 04/03/19 19:35 04/03/19 21:09 04/04/19 04:51 Bedside Glucose 140 131 Prothrombin Time 14.4 Prothrombin Time 1.1 Ratio INR International 1.11 Normalized Ratio Activated 28.[address] Time Fibrinogen 395.0 # White Blood Count 1.5 #L Red Blood Count 2.61 L Hemoglobin 8.3 L Hematocrit 24.4 L Mean Corpuscular 93.5 Volume Mean Corpuscular 31.8 Hemoglobin Mean Corpuscular 34.0 Hemoglobin Concent Red Cell 13.5 Distribution Width Platelet Count 46 #L Mean Platelet 10.2 Volume Immature 1.400 H Granulocytes % Neutrophils % Segmented 29 L Neutrophils % (Manual) Band Neutrophils % 4 (Manual) Lymphocytes % Lymphocytes % 66 H (Manual) Monocytes % Monocytes % 1 (Manual) Eosinophils % Basophils % Nucleated Red 0.0 Blood Cells % Immature 0.020 Granulocytes # Neutrophils # Neutrophils # 0.4 L (Manual) Band Neutrophils # 0.0 Lymphocytes 0.9 (Manual) Lymphocytes # Monocytes # Monocytes # 0.0 L (Manual) Eosinophils # Basophils # Nucleated Red Blood Cells # Platelet Estimate SIG DECREASED Poikilocytosis 1+ Anisocytosis 1+ Target Cells 1+ Sodium Level 137 Potassium Level 3.8 Chloride Level 105 Carbon Dioxide 24 Level Anion Gap 8 Blood Urea 12 Nitrogen Creatinine 0.47 L Est Glomerular > 60 Filtrat Rate mL/min Glucose Level 71 Calcium Level 7.9 L Phosphorus Level 4.0 Magnesium Level 2.3 Test 04/04/19 08:33 04/04/19 12:46 Bedside Glucose 78 130 Medications Medication Current Medications Insulin Aspart (Novolog Insulin Pen) NOVOLOG *MILD* ALGORITHM WITH MEALS BEDTIME SC Last administered on 04/02/19 17:44; Admin Dose 2 UNIT; Start 03/23/19 at 18:00 IV Flush (NS 3 ml) 3 ml PER PROTOCOL IV ; Start 03/23/19 at 18:00 Ondansetron HCl (Zofran Inj) 4 mg Q6H PRN IV NAUSEA/VOMITING Last administered on 04/02/19 20:43; Admin Dose 4 MG; Start 03/23/19 at 18:00 Acetaminophen (Tylenol Tab) 650 mg Q6H PRN PO .PAIN 1-3 OR TEMP Last administered on 03/29/19 23:39; Admin Dose 650 MG; Start 03/23/19 at 18:00 Acetaminophen/ Hydrocodone Bitart ([place] (5/325)) 1 tab Q6H PRN PO .MOD PAIN 4- 6 Last administered on 04/04/19 11:45; Admin Dose 1 TAB; Start 03/23/19 at 18:00 Polyethylene Glycol (Miralax) 17 gm BID PO Last administered on 04/04/19 08:34; Admin Dose 17 GM; Start 03/23/19 at 21:00 Miscellaneous Information 1 ea NOTE XX ; Start 03/23/19 at 18:00 Glucose (Glutose) 15 gm Q15M PRN PO DECREASED GLUCOSE; Start 03/23/19 at 18:00 Glucose (Glutose) 22.5 gm Q15M PRN PO DECREASED GLUCOSE; Start 03/23/19 at 18:00 Dextrose (D50w Syringe) 25 ml Q15M PRN IV DECREASED GLUCOSE; Start 03/23/19 at 18:00 Dextrose (D50w Syringe) 50 ml Q15M PRN IV DECREASED GLUCOSE; Start 03/23/19 at 18:00 Glucagon (Glucagen) 1 mg Q15M PRN IM DECREASED GLUCOSE; Start 03/23/19 at 18:00 Glucose (Glutose) 15 gm Q15M PRN BUCCAL DECREASED GLUCOSE; Start 03/23/19 at 18:00 Hydralazine HCl (Apresoline) 10 mg Q4H PRN IV FOR SBP>170; Start 03/26/19 at 03:30 Albuterol/ Ipratropium (Duoneb) 3 ml Q2H RESP THERAPY PRN HHN sob; Start 03/26/19 at 12:30 Lisinopril (Zestril) 10 mg BID PO Last administered on 04/04/19at 08:36; Admin Dose 10 MG; Start 03/28/19 at 09:00 Allopurinol (Zyloprim) 300 mg DAILY PO Last administered on 04/04/19at 08:34; Admin Dose 300 MG; Start 03/29/19 at 15:30 Cytarabine 0.28 gm/Sodium Chloride 1,000 ml @ 41.667 mls/ hr Q24H IV Last administered on 04/03/19at 17:20; Admin Dose 41.667 MLS/HR; Start 03/30/19 at 15 :00; Stop 04/06/19 at 14:59 Ondansetron HCl 8 mg/Sodium Chloride 54 ml @ 216 mls/hr Q8H PRN IV NAUSEA AND/OR VOMITING; Start 03/30/19 at 14:30; Stop 04/06/19 at 14:29 Furosemide (Lasix) 20 mg DAILY PO Last administered on 04/04/19at 08:37; Admin Dose 20 MG; Start 04/02/19 at 09:00 Insulin Aspart (Novolog Insulin Pen) 5 unit WITH MEALS SC Last administered on 04/04/19at 12:50; Admin Dose 5 UNIT; Start 04/02/19 at 11:40 Insulin Glargine (Lantus) 22 units DAILY@2000 SC Last administered on 04/03/19 21:12; Admin Dose 22 UNITS; Start 04/02/19 at 20:00 Fluconazole (Diflucan) 100 mg DAILY PO Last administered on 04/04/19 08:34; Admin Dose 100 MG; Start 04/02/19 at 15:30 Acyclovir (Zovirax) 400 mg DAILY PO Last administered on 04/04/19 08:36; Admin Dose 400 MG; Start 04/03/19 at 09:00 Levofloxacin (Levaquin) 500 mg DAILY@06 PO Last administered on 04/04/19 05:21; Admin Dose 500 MG; Start 04/03/19 at 06:00 Doxycycline Hyclate (Vibramycin) 100 mg BID PO Last administered on 04/04/19 08:34; Admin Dose 100 MG; Start 04/02/19 at 21:00 Famotidine (Pepcid) 20 mg BID PO Last administered on 04/04/19 08:34; Admin Dose 20 MG; Start 04/02/19 at 21:00 Al Hydrox/Mg Hydrox/Simethicone (Mag-Al Plus) 30 ml Q6H PRN PO GASTROINTESTINAL UPSET; Start 04/02/19 at 18:30 Carvedilol (Coreg) 12.5 mg BID PO Last administered on 04/04/19 08:35; Admin Dose 12.5 MG; Start 04/02/19 at 21:00 Dexamethasone (Maxidex 0.1% Oph) 2 drop BID BOTH EYES Last administered on 04/04/19 08:36; Admin Dose 2 DROP; Start 04/03/19 at 21:00 JEANNIE NICHOLSON NP Apr 04, 2019 14:53
[2019-04-04 15:04] VITALS: BP 154/87; PULSE 71; RESP 20
--- NOTE | 2019-04-04 16:11 | PN ---
Date/Time of Note Date/Time of Note DATE: 04/04/19 TIME: 16:07 Assessment/Plan VTE Prophylaxis Risk score (from Ns)>0 risk: 6 SCD applied (from [facility]): Yes Pharmacological prophylaxis: NA/contraindicated Pharm contraindication: thrombocytopenia Lines/Catheters IV C[facility]ter Type (from [facility]): [place] [facility] line still needed: Yes Urinary Cath still in place: No Assessment/Plan Assessment/Plan Counts are gradually declining but transfusions are not needed yet. No fever or chills yet either. I suggested his bring in cards or the like to give him something other than watching TV to do. Today is day 6 of the induction program and treatment is well tolerated so far. Result Diagram: 04/04/19 0451 04/04/19 0451 Results 24hrs Laboratory Tests Test 04/03/19 17:50 04/03/19 19:35 04/03/19 21:09 04/04/19 04:51 Bedside Glucose 140 131 Prothrombin Time 14.4 Prothrombin Time 1.1 Ratio INR International 1.11 Normalized Ratio Activated 28.[address] Time Fibrinogen 395.0 # White Blood Count 1.5 #L Red Blood Count 2.61 L Hemoglobin 8.3 L Hematocrit 24.4 L Mean Corpuscular 93.5 Volume Mean Corpuscular 31.8 Hemoglobin Mean Corpuscular 34.0 Hemoglobin Concent Red Cell 13.5 Distribution Width Platelet Count 46 #L Mean Platelet 10.2 Volume Immature 1.400 H Granulocytes % Neutrophils % Segmented 29 L Neutrophils % (Manual) Band Neutrophils % 4 (Manual) Lymphocytes % Lymphocytes % 66 H (Manual) Monocytes % Monocytes % 1 (Manual) Eosinophils % Basophils % Nucleated Red 0.0 Blood Cells % Immature 0.020 Granulocytes # Neutrophils # Neutrophils # 0.4 L (Manual) Band Neutrophils # 0.0 Lymphocytes 0.9 (Manual) Lymphocytes # Monocytes # Monocytes # 0.0 L (Manual) Eosinophils # Basophils # Nucleated Red Blood Cells # Platelet Estimate SIG DECREASED Poikilocytosis 1+ Anisocytosis 1+ Target Cells 1+ Sodium Level 137 Potassium Level 3.8 Chloride Level 105 Carbon Dioxide 24 Level Anion Gap 8 Blood Urea 12 Nitrogen Creatinine 0.47 L Est Glomerular > 60 Filtrat Rate mL/min Glucose Level 71 Calcium Level 7.9 L Phosphorus Level 4.0 Magnesium Level 2.3 Test 04/04/19 08:33 04/04/19 12:46 Bedside Glucose 78 130 Subjective 24 Hr Interval Summary Free Text/Dictation Pt is tolerating chemotherapy well. He goes from chair to bed. No cough, nausea, vomiting Exam/Review of Systems Exam Vitals Vital Signs Date Temp Pulse Resp B/P (MAP) Pulse Ox O2 O2 Flow FiO2 Time Delivery Rate 04/04/19 97.9 71 20 154/87 99 15:04 (109) 04/04/19 Room Air 07:48 Intake and Output 04/03/19 04/03/19 04/04/19 1515:00 23:00 07:00 IntakeIntake Total 500 ml 658.337 ml 791.587 ml OutputOutput Total 2 ml 1 ml BalanceBalance 498 ml 657.337 ml 791.587 ml Constitutional: alert, oriented Head: normocephalic Eyes: nl conjunctiva, other (conjunctival pallor) ENMT: nl external ears & nose Neck: supple Respiratory: clear to auscultation Cardiovascular: regular rate and rhythm Gastrointestinal: soft, non-tender Extremities: normal pulses Lymph: nl lymph nodes Results Results 24hrs Laboratory Tests Test 04/03/19 17:50 04/03/19 19:35 04/03/19 21:09 04/04/19 04:51 Bedside Glucose 140 131 Prothrombin Time 14.4 Prothrombin Time 1.1 Ratio INR International 1.11 Normalized Ratio Activated 28.[address] Time Fibrinogen 395.0 # White Blood Count 1.5 #L Red Blood Count 2.61 L Hemoglobin 8.3 L Hematocrit 24.4 L Mean Corpuscular 93.5 Volume Mean Corpuscular 31.8 Hemoglobin Mean Corpuscular 34.0 Hemoglobin Concent Red Cell 13.5 Distribution Width Platelet Count 46 #L Mean Platelet 10.2 Volume Immature 1.400 H Granulocytes % Neutrophils % Segmented 29 L Neutrophils % (Manual) Band Neutrophils % 4 (Manual) Lymphocytes % Lymphocytes % 66 H (Manual) Monocytes % Monocytes % 1 (Manual) Eosinophils % Basophils % Nucleated Red 0.0 Blood Cells % Immature 0.020 Granulocytes # Neutrophils # Neutrophils # 0.4 L (Manual) Band Neutrophils # 0.0 Lymphocytes 0.9 (Manual) Lymphocytes # Monocytes # Monocytes # 0.0 L (Manual) Eosinophils # Basophils # Nucleated Red Blood Cells # Platelet Estimate SIG DECREASED Poikilocytosis 1+ Anisocytosis 1+ Target Cells 1+ Sodium Level 137 Potassium Level 3.8 Chloride Level 105 Carbon Dioxide 24 Level Anion Gap 8 Blood Urea 12 Nitrogen Creatinine 0.47 L Est Glomerular > 60 Filtrat Rate mL/min Glucose Level 71 Calcium Level 7.9 L Phosphorus Level 4.0 Magnesium Level 2.3 Test 04/04/19 08:33 04/04/19 12:46 Bedside Glucose 78 130 Medications Medication Current Medications Insulin Aspart (Novolog Insulin Pen) NOVOLOG *MILD* ALGORITHM WITH MEALS BEDTIME SC Last administered on 04/02/19at 17:44; Admin Dose 2 UNIT; Start 03/23/19 at 18:00 IV Flush (NS 3 ml) 3 ml PER PROTOCOL IV ; Start 03/23/19 at 18:00 Ondansetron HCl (Zofran Inj) 4 mg Q6H PRN IV NAUSEA/VOMITING Last administered on 04/02/19at 20:43; Admin Dose 4 MG; Start 03/23/19 at 18:00 Acetaminophen (Tylenol Tab) 650 mg Q6H PRN PO .PAIN 1-3 OR TEMP Last administered on 03/29/19at 23:39; Admin Dose 650 MG; Start 03/23/19 at 18:00 Acetaminophen/ Hydrocodone Bitart ([place] (5/325)) 1 tab Q6H PRN PO .MOD PAIN 4- 6 Last administered on 04/04/19at 11:45; Admin Dose 1 TAB; Start 03/23/19 at 18:00 Polyethylene Glycol (Miralax) 17 gm BID PO Last administered on 04/04/19at 08:34; Admin Dose 17 GM; Start 03/23/19 at 21:00 Miscellaneous Information 1 ea NOTE XX ; Start 03/23/19 at 18:00 Glucose (Glutose) 15 gm Q15M PRN PO DECREASED GLUCOSE; Start 03/23/19 at 18:00 Glucose (Glutose) 22.5 gm Q15M PRN PO DECREASED GLUCOSE; Start 03/23/19 at 18:00 Dextrose (D50w Syringe) 25 ml Q15M PRN IV DECREASED GLUCOSE; Start 03/23/19 at 18:00 Dextrose (D50w Syringe) 50 ml Q15M PRN IV DECREASED GLUCOSE; Start 03/23/19 at 18:00 Glucagon (Glucagen) 1 mg Q15M PRN IM DECREASED GLUCOSE; Start 03/23/19 at 18:00 Glucose (Glutose) 15 gm Q15M PRN BUCCAL DECREASED GLUCOSE; Start 03/23/19 at 18:00 Hydralazine HCl (Apresoline) 10 mg Q4H PRN IV FOR SBP>170; Start 03/26/19 at 03:30 Albuterol/ Ipratropium (Duoneb) 3 ml Q2H RESP THERAPY PRN HHN sob; Start 03/26/19 at 12:30 Lisinopril (Zestril) 10 mg BID PO Last administered on 04/04/19 08:36; Admin Dose 10 MG; Start 03/28/19 at 09:00 Allopurinol (Zyloprim) 300 mg DAILY PO Last administered on 04/04/19 08:34; Admin Dose 300 MG; Start 03/29/19 at 15:30 Cytarabine 0.28 gm/Sodium Chloride 1,000 ml @ 41.667 mls/ hr Q24H IV Last administered on 04/03/19 17:20; Admin Dose 41.667 MLS/HR; Start 03/30/19 at 15:00; Stop 04/06/19 at 14:59 Ondansetron HCl 8 mg/Sodium Chloride 54 ml @ 216 mls/hr Q8H PRN IV NAUSEA AND/OR VOMITING; Start 03/30/19 at 14:30; Stop 04/06/19 at 14:29 Furosemide (Lasix) 20 mg DAILY PO Last administered on 04/04/19 08:37; Admin Dose 20 MG; Start 04/02/19 at 09:00 Insulin Aspart (Novolog Insulin Pen) 5 unit WITH MEALS SC Last administered on 04/04/19at 12:50; Admin Dose 5 UNIT; Start 04/02/19 at 11:40 Insulin Glargine (Lantus) 22 units DAILY@2000 SC Last administered on 04/03/19 21:12; Admin Dose 22 UNITS; Start 04/02/19 at 20:00 Fluconazole (Diflucan) 100 mg DAILY PO Last administered on 04/04/19 08:34; Admin Dose 100 MG; Start 04/02/19 at 15:30 Acyclovir (Zovirax) 400 mg DAILY PO Last administered on 04/04/19 08:36; Admin Dose 400 MG; Start 04/03/19 at 09:00 Levofloxacin (Levaquin) 500 mg DAILY@06 PO Last administered on 04/04/19 05:21; Admin Dose 500 MG; Start 04/03/19 at 06:00 Doxycycline Hyclate (Vibramycin) 100 mg BID PO Last administered on 04/04/19 08:34; Admin Dose 100 MG; Start 04/02/19 at 21:00 Famotidine (Pepcid) 20 mg BID PO Last administered on 04/04/19 08:34; Admin Dose 20 MG; Start 04/02/19 at 21:00 Al Hydrox/Mg Hydrox/Simethicone (Mag-Al Plus) 30 ml Q6H PRN PO GASTROINTESTINAL UPSET; Start 04/02/19 at 18:30 Carvedilol (Coreg) 12.5 mg BID PO Last administered on 04/04/19 08:35; Admin D ose 12.5 MG; Start 04/02/19 at 21:00 Dexamethasone (Maxidex 0.1% Oph) 2 drop BID BOTH EYES Last administered on 04/04/19 08:36; Admin Dose 2 DROP; Start 04/03/19 at 21:00 BETTE MALDONADO MD Apr 04, 2019 16:11
[2019-04-04] MEDS: SOD CHLORIDE 0.9% IV SCH (16:44)
[2019-04-04] MEDS: CYTARABINE IV SCH (16:44)
[2019-04-04] MEDS: ONDANSETRON 4 MG INJ IV PRN (17:41)
[2019-04-04 19:30] VITALS: BP 151/85; PULSE 71; RESP 20
[2019-04-04] MEDS: INSULIN GLARGINE [LANTus] (100 UNITS/ML) SYG SC SCH (20:00)
[2019-04-05 02:05] VITALS: BP 147/79; PULSE 71; RESP 20
[2019-04-05] MEDS: HYDROCODONE/APAP (5/325) TAB PO PRN ×2 (03:02→22:36)
[2019-04-05] MEDS: LEVOFLOXACIN 500 MG TAB PO SCH (05:18)
[2019-04-05 07:23] VITALS: BP 155/88; PULSE 73; RESP 18
[2019-04-05] MEDS: INSULIN ASPART [NOVOLOG] 3 ML PEN SC SCH ×7 (07:50→20:20)
[2019-04-05] MEDS: ONDANSETRON 4 MG INJ IV PRN ×2 (08:29→17:12)
[2019-04-05] MEDS: DEXAMETHASONE 0.1% 5 ML OPH BOTH EYES SCH ×2 (08:32→20:22)
[2019-04-05] MEDS: FLUCONAZOLE 100 MG TAB PO SCH (08:32)
[2019-04-05] MEDS: ALLOPURINOL 300 MG TAB PO SCH (08:32)
[2019-04-05] MEDS: DOXYCYCLINE 100 MG TAB PO SCH ×2 (08:32→20:15)
[2019-04-05] MEDS: ACYCLOVIR 400 MG TAB PO SCH (08:33)
[2019-04-05] MEDS: FAMOTIDINE 20 MG TAB PO SCH ×2 (08:33→20:15)
[2019-04-05] MEDS: POLYETHYLENE GLYCOL 17 GM PACKET PO SCH ×2 (08:33→20:22)
[2019-04-05] MEDS: FUROSEMIDE 20 MG TAB PO SCH (08:34)
[2019-04-05] MEDS: LISINOPRIL 10 MG TAB PO SCH (08:34)
--- NOTE | 2019-04-05 09:01 | PN ---
Date/Time of Note Date/Time of Note DATE: 04/05/19 TIME: 09:00 Assessment/Plan VTE Prophylaxis Risk score (from Nsg)>0 risk: 5 SCD applied (from Ns): Yes Pharmacological prophylaxis: NA/contraindicated Pharm contraindication: thrombocytopenia Lines/Catheters IV Catheter Type (from Nrsg): Central Line Central line still needed: Yes Urinary Cath still in place: No Assessment/Plan Hospital Course SUBJECTIVE: Denies any pain or dyspnea. Minimal nausea reported. OBJECTIVE: Physical Exam General: Adequately build 54 year-old male lying in bed in no apparent distress. HEENT: Normocephalic, atraumatic. Eyes: Anicteric sclerae, conjunctivae clear. ENT: Nasal septum midline, oral mucosa moist. Neck supple, no JVD noticed. Respiratory: Bilaterally clear breath sounds. No use of accessory muscles of respiration. No adventitious breath sounds. Cardiovascular: S1, S2 heard. Regular rate and rhythm. Abdomen: Soft, nontender, and nondistended. Bowel sounds positive in all 4 quadrants. Genitourinary: Deferred. Extremities: No cyanosis, no clubbing, no edema. Peripheral pulses palpable. Neurologic: Cranial nerves II through XII grossly intact. The patient is awake, alert, and oriented. Skin: Normal skin turgor. No skin rashes. Labs & Vitals per chart ASSESSMENT & PLAN 54-year-old male with comorbidities including hypertension and diabetes mellitus who presented to the emergency room on 03/22/2019 with febrile illness and was discharged home on oral antibiotics, who was called back on 03/23/2019 as per the instruction of the pathologist for increased blast cells on CBC drawn on 03/22/2019. 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 2. Neutropenic fevers. On ABX as per ID. Reyes cultures remain negative. 3. Diabetes mellitus type 2. Hemoglobin A1c 9.6. Continue the patient on sliding scale insulin along with basal insulin. 4. Hypertension. Continue antihypertensives. 5. Cardiomyopathy. EF of 35-40%. Continue BBs and ACEIs. Cardiology following. 6. Acute CHF exacerbation, systolic dysfunction. Continue diuretic therapy. Switch to oral diuretic therapy. 7. Fluids, electrolytes, and nutrition. Carbohydrate controlled, neutropenic diet. 8. DVT prophylaxis. Bilateral SCDs. 9. Plan. Continue to monitor for any secondary infection. Continue chemotherapy as per oncology. The patient was seen in collaboration with Dr. Avilez. Result Diagram: 04/05/19 0520 04/05/19 0520 Results 24hrs Laboratory Tests Test 04/04/19 12:46 04/04/19 17:42 04/04/19 20:32 04/05/19 05:20 Bedside Glucose 130 83 108 White Blood Count 1.1 #L Red Blood Count 2.82 L Hemoglobin 8.8 L Hematocrit 25.2 L Mean Corpuscular 89.4 Volume Mean Corpuscular 31.2 Hemoglobin Mean Corpuscular 34.9 Hemoglobin Concent Red Cell 13.3 Distribution Width Platelet Count 37 L Mean Platelet Volume 9.9 Immature 0.900 H Granulocytes % Neutrophils % Lymphocytes % Monocytes % Eosinophils % Basophils % Nucleated Red Blood 0.0 Cells % Immature 0.010 Granulocytes # Neutrophils # Lymphocytes # Monocytes # Eosinophils # Basophils # Nucleated Red Blood Cells # Sodium Level 136 Potassium Level 3.9 Chloride Level 104 Carbon Dioxide Level 24 Anion Gap 8 Blood Urea Nitrogen 10 Creatinine 0.47 L Est Glomerular > 60 Filtrat Rate mL/min Glucose Level 76 Calcium Level 8.4 Phosphorus Level 4.2 Magnesium Level 2.2 Test 04/05/19 08:13 Bedside Glucose 77 Exam/Review of Systems Exam Vitals Vital Signs Date Temp Pulse Resp B/P (MAP) Pulse Ox O2 O2 Flow FiO2 Time Delivery Rate 04/05/19 98.4 73 18 155/88 97 Room Air 07:23 (110) Intake and Output 04/04/19 04/04/19 04/05/19 1515:00 23:00 07:00 IntakeIntake Total 960 ml 458.413 ml 515 ml OutputOutput Total 1 ml BalanceBalance 959 ml 458.413 ml 515 ml Results Results 24hrs Laboratory Tests Test 04/04/19 12:46 04/04/19 17:42 04/04/19 20:32 04/05/19 05:20 Bedside Glucose 130 83 108 White Blood Count 1.1 #L Red Blood Count 2.82 L Hemoglobin 8.8 L Hematocrit 25.2 L Mean Corpuscular 89.4 Volume Mean Corpuscular 31.2 Hemoglobin Mean Corpuscular 34.9 Hemoglobin Concent Red Cell 13.3 Distribution Width Platelet Count 37 L Mean Platelet Volume 9.9 Immature 0.900 H Granulocytes % Neutrophils % Lymphocytes % Monocytes % Eosinophils % Basophils % Nucleated Red Blood 0.0 Cells % Immature 0.010 Granulocytes # Neutrophils # Lymphocytes # Monocytes # Eosinophils # Basophils # Nucleated Red Blood Cells # Sodium Level 136 Potassium Level 3.9 Chloride Level 104 Carbon Dioxide Level 24 Anion Gap 8 Blood Urea Nitrogen 10 Creatinine 0.47 L Est Glomerular > 60 Filtrat Rate mL/min Glucose Level 76 Calcium Level 8.4 Phosphorus Level 4.2 Magnesium Level 2.2 Test 04/05/19 08:13 Bedside Glucose 77 Medications Medication Current Medications Insulin Aspart (Novolog Insulin Pen) NOVOLOG *MILD* ALGORITHM WITH MEALS BEDTIME SC Last administered on 04/02/19 17:44; Admin Dose 2 UNIT; Start 03/23/19 at 18:00 IV Flush (NS 3 ml) 3 ml PER PROTOCOL IV ; Start 03/23/19 at 18:00 Ondansetron HCl (Zofran Inj) 4 mg Q6H PRN IV NAUSEA/VOMITING Last administered on 04/05/19 08:29; Admin Dose 4 MG; Start 03/23/19 at 18:00 Acetaminophen (Tylenol Tab) 650 mg Q6H PRN PO .PAIN 1-3 OR TEMP Last administered on 03/29/19at 23:39; Admin Dose 650 MG; Start 03/23/19 at 18:00 Acetaminophen/ Hydrocodone Bitart ([place] (5/325)) 1 tab Q6H PRN PO .MOD PAIN 4- 6 Last administered on 04/05/19at 03:02; Admin Dose 1 TAB; Start 03/23/19 at 18:00 Polyethylene Glycol (Miralax) 17 gm BID PO Last administered on 04/05/19 08:33; Admin Dose 17 GM; Start 03/23/19 at 21:00 Miscellaneous Information 1 ea NOTE XX ; Start 03/23/19 at 18:00 Glucose (Glutose) 15 gm Q15M PRN PO DECREASED GLUCOSE; Start 03/23/19 at 18:00 Glucose (Glutose) 22.5 gm Q15M PRN PO DECREASED GLUCOSE; Start 03/23/19 at 18:00 Dextrose (D50w Syringe) 25 ml Q15M PRN IV DECREASED GLUCOSE; Start 03/23/19 at 18:00 Dextrose (D50w Syringe) 50 ml Q15M PRN IV DECREASED GLUCOSE; Start 03/23/19 at 18:00 Glucagon (Glucagen) 1 mg Q15M PRN IM DECREASED GLUCOSE; Start 03/23/19 at 18:00 Glucose (Glutose) 15 gm Q15M PRN BUCCAL DECREASED GLUCOSE; Start 03/23/19 at 18:00 Hydralazine HCl (Apresoline) 10 mg Q4H PRN IV FOR SBP>170; Start 03/26/19 at 03:30 Albuterol/ Ipratropium (Duoneb) 3 ml Q2H RESP THERAPY PRN HHN sob; Start 03/26/19 at 12:30 Lisinopril (Zestril) 10 mg BID PO Last administered on 04/05/19 08:34; Admin Dose 10 MG; Start 03/28/19 at 09:00 Allopurinol (Zyloprim) 300 mg DAILY PO Last administered on 04/05/19 08:32; Admin Dose 300 MG; Start 03/29/19 at 15:30 Cytarabine 0.28 gm/Sodium Chloride 1,000 ml @ 41.667 mls/ hr Q24H IV Last administered on 04/04/19at 16:44; Admin Dose 41.667 MLS/HR; Start 03/30/19 at 15:00; Stop 04/06/19 at 14:59 Ondansetron HCl 8 mg/Sodium Chloride 54 ml @ 216 mls/hr Q8H PRN IV NAUSEA AND/OR VOMITING; Start 03/30/19 at 14:30; Stop 04/06/19 at 14:29 Furosemide (Lasix) 20 mg DAILY PO Last administered on 04/05/19 08:34; Admin Dose 20 MG; Start 04/02/19 at 09:00 Insulin Aspart (Novolog Insulin Pen) 5 unit WITH MEALS SC Last administered on 04/05/19 08:36; Admin Dose 5 UNIT; Start 04/02/19 at 11:40 Insulin Glargine (Lantus) 22 units DAILY@2000 SC Last administered on 04/03/19 21:12; Admin Dose 22 UNITS; Start 04/02/19 at 20:00 Fluconazole (Diflucan) 100 mg DAILY PO Last administered on 04/05/19 08:32; Admin Dose 100 MG; Start 04/02/19 at 15:30 Acyclovir (Zovirax) 400 mg DAILY PO Last administered on 04/05/19 08:33; Admin Dose 400 MG; Start 04/03/19 at 09:00 Levofloxacin (Levaquin) 500 mg DAILY@06 PO Last administered on 04/05/19 05:18; Admin Dose 500 MG; Start 04/03/19 at 06:00 Doxycycline Hyclate (Vibramycin) 100 mg BID PO Last administered on 04/05/19 08:32; Admin Dose 100 MG; Start 04/02/19 at 21:00 Famotidine (Pepcid) 20 mg BID PO Last administered on 04/05/19 08:33; Admin Dose 20 MG; Start 04/02/19 at 21:00 Al Hydrox/Mg Hydrox/Simethicone (Mag-Al Plus) 30 ml Q6H PRN PO GASTROINTESTINAL UPSET; Start 04/02/19 at 18:30 Carvedilol (Coreg) 12.5 mg BID PO Last administered on 04/05/19 08:34; Admin Dose 12.5 MG; Start 04/02/19 at 21:00 Dexamethasone (Maxidex 0.1% Oph) 2 drop BID BOTH EYES Last administered on 04/05/19 08:32; Admin Dose 2 DROP; Start 04/03/19 at 21:00 KATIE PACE NP Apr 05, 2019 09:01
--- NOTE | 2019-04-05 11:50 | PN ---
DATE: 04/05/2019 SUBJECTIVE: The patient states he is feeling well. He has no complaints of nausea or vomiting. He has had no diarrhea, no mouth soreness. He has had no complaints of eye discomfort. He has had no s haking chills. The patient did have an episode of some chest discomfort, but this abated spontaneously. OBJECTIVE: GENERAL: The patient is a well-developed, well-nourished male, in no acute distress. VITAL SIGNS: Temperature 98.4 orally, pulse 73 per minute and regular, respirations 18, blood pressu re 155/88 and pulse oximetry 97% on room air. SKIN: Scattered ecchymosis. No petechiae or rashes. HEENT: Normocephalic. No evidence of trauma. Pupils are equal, round and reactive to light and acc ommodation. Sclerae nonicteric. There is no conjunctival irritation or discharge. Oral mucosa is m oist without lesions. No evidence of monilia. No ulcerations. Tongue is well papillated. No gingi martin hyperplasia. NECK: Supple. No jugular venous distention or thyroid enlargement. CHEST: Clear to auscultation and percussion. No rhonchi, wheezes, rales or rubs. There is a double lumen [place] catheter in the right anterior chest wall. No evidence of infection at the insertion site. BREASTS: No gynecomastia. HEART: Regular sinus rhythm. No S3, S4 or murmurs. ABDOMEN: Soft, no masses, no ascites. Bowel sounds are active. No hernia defects. EXTREMITIES: Good range of motion. No clubbing, no edema or cyanosis. No palpable cords or Homans sign. NEUROLOGIC: Normal. LABORATORY DATA: WBC 1100 with absolute neutrophil count of approximately 400. There are no immatur e neutrophils. No circulating blasts. Hemoglobin 8.8, hematocrit 25.2, and platelet count is 37,000 . Protime 14.4 seconds, INR of 1.11, PTT is 28.2 seconds, fibrinogen 395. Sodium 136, potassium 3.9, creatinine 0.47, BUN 10. Uric acid not available. ASSESSMENT: 1. Acute myelogenous leukemia, undergoing induction chemotherapy, is now starting day 7 of continuou s infusion cytosine arabinoside. 2. Pancytopenia secondary to chemotherapy. We will continue to monitor the patient closely. At this point, there is no evidence of tumor lysis syndrome. The patient has no evidence of mucositis or conjunctivitis. We will continue to monitor the patient's uric acid as well as CBC and electrolytes. At this point, patient does not require transfusions. We will transfuse with platelets if the platel et count drops below 10,000 or there is clinical bleeding. Dictated By: ERIN COLLADO MD SR/NTS Conf#: [id number] DID#: [id number] CC: KURTIS WHITTAKER MD;*EndCC*
--- NOTE | 2019-04-05 12:46 | CONS ---
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 Diabetes Hypertension Continue maintenance diuretics as needed Blood pressure trend on the higher side, would increase dose of lisinopril Continue beta-blockers heart rate and blood pressure permits Consultation Date/Type/Reason Admit Date/Time Mar 23, 2019 at 16:10 Initial Consult Date 03/24/19 Type of Consult Cardiology Requesting Provider: KATIE PACE NP Date/Time of Note DATE: 04/05/19 TIME: 12:44 24 HR Interval Summary Free Text/Dictation No shortness of breath, chest pain, palpitations or dizziness at rest or with activity Exam/Review of Systems Vital Signs Vitals Vital Signs Date Temp Pulse Resp B/P (MAP) Pulse Ox O2 O2 Flow FiO2 Time Delivery Rate 04/05/19 98.4 73 18 155/88 97 Room Air 07:23 (110) Intake and Output 04/04/19 04/04/19 04/05/19 1515:00 23:00 07:00 IntakeIntake Total 960 ml 458.413 ml 515 ml OutputOutput Total 1 ml BalanceBalance 959 ml 458.413 ml 515 ml Exam Constitutional: alert, oriented (No apparent distress) Head: normocephalic Respiratory: other (Coarse breath sounds bilaterally, no wheezing) Cardiovascular: regular rate and rhythm (S1-S2 heard) Gastrointestinal: soft, non-tender, bowel sounds Extremities: other (No edema) Labs Result Diagram: 04/05/19 0520 04/05/19 0520 Results 24hrs Laboratory Tests Test 04/04/19 12:46 04/04/19 17:42 04/04/19 20:32 04/05/19 05:20 Bedside Glucose 130 83 108 White Blood Count 1.1 #L Red Blood Count 2.82 L Hemoglobin 8.8 L Hematocrit 25.2 L Mean Corpuscular 89.4 Volume Mean Corpuscular 31.2 Hemoglobin Mean Corpuscular 34.9 Hemoglobin Concent Red Cell 13.3 Distribution Width Platelet Count 37 L Mean Platelet Volume 9.9 Immature 0.900 H Granulocytes % Neutrophils % Lymphocytes % Monocytes % Eosinophils % Basophils % Nucleated Red Blood 0.0 Cells % Immature 0.010 Granulocytes # Neutrophils # Lymphocytes # Monocytes # Eosinophils # Basophils # Nucleated Red Blood Cells # Sodium Level 136 Potassium Level 3.9 Chloride Level 104 Carbon Dioxide Level 24 Anion Gap 8 Blood Urea Nitrogen 10 Creatinine 0.47 L Est Glomerular > 60 Filtrat Rate mL/min Glucose Level 76 Calcium Level 8.4 Phosphorus Level 4.2 Magnesium Level 2.2 Test 04/05/19 08:13 04/05/19 12:17 Bedside Glucose 77 155 Medications Medications Current Medications Insulin Aspart (Novolog Insulin Pen) NOVOLOG *MILD* ALGORITHM WITH MEALS BEDTIME SC Last administered on 04/05/19 12:39; Admin Dose 1 UNIT; Start 03/23/19 at 18:00 IV Flush (NS 3 ml) 3 ml PER PROTOCOL IV ; Start 03/23/19 at 18:00 Ondansetron HCl (Zofran Inj) 4 mg Q6H PRN IV NAUSEA/VOMITING Last administered on 04/05/19at 08:29; Admin Dose 4 MG; Start 03/23/19 at 18:00 Acetaminophen (Tylenol Tab) 650 mg Q6H PRN PO .PAIN 1-3 OR TEMP Last administered on 03/29/19at 23:39; Admin Dose 650 MG; Start 03/23/19 at 18:00 Acetaminophen/ Hydrocodone Bitart ([place] (5/325)) 1 tab Q6H PRN PO .MOD PAIN 4- 6 Last administered on 04/05/19 03:02; Admin Dose 1 TAB; Start 03/23/19 at 18:00 Polyethylene Glycol (Miralax) 17 gm BID PO Last administered on 04/05/19 08:33; Admin Dose 17 GM; Start 03/23/19 at 21:00 Miscellaneous Information 1 ea NOTE XX ; Start 03/23/19 at 18:00 Glucose (Glutose) 15 gm Q15M PRN PO DECREASED GLUCOSE; Start 03/23/19 at 18:00 Glucose (Glutose) 22.5 gm Q15M PRN PO DECREASED GLUCOSE; Start 03/23/19 at 18:00 Dextrose (D50w Syringe) 25 ml Q15M PRN IV DECREASED GLUCOSE; Start 03/23/19 at 18:00 Dextrose (D50w Syringe) 50 ml Q15M PRN IV DECREASED GLUCOSE; Start 03/23/19 at 18:00 Glucagon (Glucagen) 1 mg Q15M PRN IM DECREASED GLUCOSE; Start 03/23/19 at 18:00 Glucose (Glutose) 15 gm Q15M PRN BUCCAL DECREASED GLUCOSE; Start 03/23/19 at 18:00 Hydralazine HCl (Apresoline) 10 mg Q4H PRN IV FOR SBP>170; Start 03/26/19 at 03:30 Albuterol/ Ipratropium (Duoneb) 3 ml Q2H RESP THERAPY PRN HHN sob; Start 03/26/19 at 12:30 Lisinopril (Zestril) 10 mg BID PO Last administered on 04/05/19 08:34; Admin Dose 10 MG; Start 03/28/19 at 09:00 Allopurinol (Zyloprim) 300 mg DAILY PO Last administered on 04/05/19 08:32; Admin Dose 300 MG; Start 03/29/19 at 15:30 Cytarabine 0.28 gm/Sodium Chloride 1,000 ml @ 41.667 mls/ hr Q24H IV Last administered on 04/04/19 16:44; Admin Dose 41.667 MLS/HR; Start 03/30/19 at 15: 00; Stop 04/06/19 at 14:59 Ondansetron HCl 8 mg/Sodium Chloride 54 ml @ 216 mls/hr Q8H PRN IV NAUSEA AND/OR VOMITING; Start 03/30/19 at 14:30; Stop 04/06/19 at 14:29 Furosemide (Lasix) 20 mg DAILY PO Last administered on 04/05/19 08:34; Admin Dose 20 MG; Start 04/02/19 at 09:00 Insulin Aspart (Novolog Insulin Pen) 5 unit WITH MEALS SC Last administered on 04/05/19at 12:40; Admin Dose 5 UNIT; Start 04/02/19 at 11:40 Fluconazole (Diflucan) 100 mg DAILY PO Last administered on 04/05/19 08:32; Admin Dose 100 MG; Start 04/02/19 at 15:30 Acyclovir (Zovirax) 400 mg DAILY PO Last administered on 04/05/19 08:33; Admin Dose 400 MG; Start 04/03/19 at 09:00 Levofloxacin (Levaquin) 500 mg DAILY@06 PO Last administered on 04/05/19 05:18; Admin Dose 500 MG; Start 04/03/19 at 06:00 Doxycycline Hyclate (Vibramycin) 100 mg BID PO Last administered on 04/05/19 08:32; Admin Dose 100 MG; Start 04/02/19 at 21:00 Famotidine (Pepcid) 20 mg BID PO Last administered on 04/05/19at 08:33; Admin Dose 20 MG; Start 04/02/19 at 21:00 Al Hydrox/Mg Hydrox/Simethicone (Mag-Al Plus) 30 ml Q6H PRN PO GASTROINTESTINAL UPSET; Start 04/02/19 at 18:30 Carvedilol (Coreg) 12.5 mg BID PO Last administered on 04/05/19at 08:34; Admin Dose 12.5 MG; Start 04/02/19 at 21:00 Dexamethasone (Maxidex 0.1% Oph) 2 drop BID BOTH EYES Last administered on 04/05/19 08:32; Admin Dose 2 DROP; Start 04/03/19 at 21:00 Insulin Glargine (Lantus) 20 units DAILY@2000 SC ; Start 04/05/19 at 20:00 Jun Ayala DO Apr 05, 2019 12:46
--- NOTE | 2019-04-05 14:46 | CONS ---
Assessment/Plan Assessment/Plan Hospital Course (Demo Recall) No events, looks comfortable, no fevers Indwelling's: Right IJ Port-A-Cath Blood cultures and urine culture negative Antimicrobials: Doxycycline, levofloxacin, fluconazole, acyclovir Physical examination: Well-developed middle-aged man who is alert in no distress head atraumatic normocephalic sclera nonicteric vehicle mucosa pink neck is supple chest rise symmetrical breath sounds clear Heart S1-S2 abdomen soft bowel sounds present extremities without cyanosis edema Assessment: 1. S/p neutropenia 2. AML, newly diagnosed 3. Diabetes 4. Hypertension 5. Pancytopenia Plan: Stable, continue prophylactic antimicrobials, follow oncology recommendations Consultation Date/Type/Reason Admit Date/Time Mar 23, 2019 at 16:10 Initial Consult Date 03/24/19 Type of Consult id Requesting Provider: KATIE PACE NP Date/Time of Note DATE: 04/05/19 TIME: 14:45 Exam/Review of Systems Exam Vitals Vital Signs Date Temp Pulse Resp B/P (MAP) Pulse Ox O2 O2 Flow FiO2 Time Delivery Rate 04/05/19 98.4 73 18 155/88 97 Room Air 07:23 (110) Intake and Output 04/04/19 04/04/19 04/05/19 1515:00 23:00 07:00 IntakeIntake Total 960 ml 458.413 ml 515 ml OutputOutput Total 1 ml BalanceBalance 959 ml 458.413 ml 515 ml Results Result Diagram: 04/05/19 0520 04/05/19 0520 Results 24hrs Laboratory Tests Test 04/04/19 17:42 04/04/19 20:32 04/05/19 05:20 04/05/19 08:13 Bedside Glucose 83 108 77 White Blood Count 1.1 #L Red Blood Count 2.82 L Hemoglobin 8.8 L Hematocrit 25.2 L Mean Corpuscular 89.4 Volume Mean Corpuscular 31.2 Hemoglobin Mean Corpuscular 34.9 Hemoglobin Concent Red Cell 13.3 Distribution Width Platelet Count 37 L Mean Platelet Volume 9.9 Immature 0.900 H Granulocytes % Neutrophils % Segmented 28 L Neutrophils % (Manual) Band Neutrophils % 3 (Manual) Lymphocytes % Lymphocytes % 68 H (Manual) Monocytes % Monocytes % (Manual) 1 Eosinophils % Eosinophils % 1 (Manual) Basophils % Metamyelocytes % 1 H (manual) Nucleated Red Blood 0.0 Cells % Immature 0.010 Granulocytes # Neutrophils # Neutrophils # 0.3 L (Manual) Band Neutrophils # 0.0 Lymphocytes (Manual) 0.7 L Lymphocytes # Monocytes # Monocytes # (Manual) 0.0 L Eosinophils # Basophils # Metamyelocytes # 0.0 Nucleated Red Blood Cells # Platelet Estimate DECREASED Polychromasia 3+ Poikilocytosis 3+ Anisocytosis 3+ Microcytosis 1+ Macrocytosis 2+ Sodium Level 136 Potassium Level 3.9 Chloride Level 104 Carbon Dioxide Level 24 Anion Gap 8 Blood Urea Nitrogen 10 Creatinine 0.47 L Est Glomerular > 60 Filtrat Rate mL/min Glucose Level 76 Calcium Level 8.4 Phosphorus Level 4.2 Magnesium Level 2.2 Test 04/05/19 12:17 Bedside Glucose 155 Medications Medication Current Medications Insulin Aspart (Novolog Insulin Pen) NOVOLOG *MILD* ALGORITHM WITH MEALS BEDTIME SC Last administered on 04/05/19 12:39; Admin Dose 1 UNIT; Start 03/23/19 at 18:00 IV Flush (NS 3 ml) 3 ml PER PROTOCOL IV ; Start 03/23/19 at 18:00 Ondansetron HCl (Zofran Inj) 4 mg Q6H PRN IV NAUSEA/VOMITING Last administered on 04/05/19 08:29; Admin Dose 4 MG; Start 03/23/19 at 18:00 Acetaminophen (Tylenol Tab) 650 mg Q6H PRN PO .PAIN 1-3 OR TEMP Last administered on 03/29/19 23:39; Admin Dose 650 MG; Start 03/23/19 at 18:00 Acetaminophen/ Hydrocodone Bitart ([place] (5/325)) 1 tab Q6H PRN PO .MOD PAIN 4- 6 Last administered on 04/05/19 03:02; Admin Dose 1 TAB; Start 03/23/19 at 18:00 Polyethylene Glycol (Miralax) 17 gm BID PO Last administered on 04/05/19 08:33; Admin Dose 17 GM; Start 03/23/19 at 21:00 Miscellaneous Information 1 ea NOTE XX ; Start 03/23/19 at 18:00 Glucose (Glutose) 15 gm Q15M PRN PO DECREASED GLUCOSE; Start 03/23/19 at 18:00 Glucose (Glutose) 22.5 gm Q15M PRN PO DECREASED GLUCOSE; Start 03/23/19 at 18:00 Dextrose (D50w Syringe) 25 ml Q15M PRN IV DECREASED GLUCOSE; Start 03/23/19 at 18:00 Dextrose (D50w Syringe) 50 ml Q15M PRN IV DECREASED GLUCOSE; Start 03/23/19 at 18:00 Glucagon (Glucagen) 1 mg Q15M PRN IM DECREASED GLUCOSE; Start 03/23/19 at 18:00 Glucose (Glutose) 15 gm Q15M PRN BUCCAL DECREASED GLUCOSE; Start 03/23/19 at 18:00 Hydralazine HCl (Apresoline) 10 mg Q4H PRN IV FOR SBP>170; Start 03/26/19 at 03:30 Albuterol/ Ipratropium (Duoneb) 3 ml Q2H RESP THERAPY PRN HHN sob; Start 03/26/19 at 12:30 Allopurinol (Zyloprim) 300 mg DAILY PO Last administered on 04/05/19at 08:32; Admin Dose 300 MG; Start 03/29/19 at 15:30 Cytarabine 0.28 gm/Sodium Chloride 1,000 ml @ 41.667 mls/ hr Q24H IV Last administered on 04/04/19at 16:44; Admin Dose 41.667 MLS/HR; Start 03/30/19 at 15:00; Stop 04/06/19 at 14:59 Ondansetron HCl 8 mg/Sodium Chloride 54 ml @ 216 mls/hr Q8H PRN IV NAUSEA AND/OR VOMITING; Start 03/30/19 at 14:30; Stop 04/06/19 at 14:29 Furosemide (Lasix) 20 mg DAILY PO Last administered on 04/05/19at 08:34; Admin Dose 20 MG; Start 04/02/19 at 09:00 Insulin Aspart (Novolog Insulin Pen) 5 unit WITH MEALS SC Last administered on 04/05/19at 12:40; Admin Dose 5 UNIT; Start 04/02/19 at 11:40 Fluconazole (Diflucan) 100 mg DAILY PO Last administered on 04/05/19at 08:32; Admin Dose 100 MG; Start 04/02/19 at 15:30 Acyclovir (Zovirax) 400 mg DAILY PO Last administered on 04/05/19at 08:33; Admin Dose 400 MG; Start 04/03/19 at 09:00 Levofloxacin (Levaquin) 500 mg DAILY@06 PO Last administered on 04/05/19 05:18; Admin Dose 500 MG; Start 04/03/19 at 06:00 Doxycycline Hyclate (Vibramycin) 100 mg BID PO Last administered on 04/05/19 08:32; Admin Dose 100 MG; Start 04/02/19 at 21:00 Famotidine (Pepcid) 20 mg BID PO Last administered on 04/05/19at 08:33; Admin Dose 20 MG; Start 04/02/19 at 21:00 Al Hydrox/Mg Hydrox/Simethicone (Mag-Al Plus) 30 ml Q6H PRN PO GASTROINTESTINAL UPSET; Start 04/02/19 at 18:30 Carvedilol (Coreg) 12.5 mg BID PO Last administered on 04/05/19at 08:34; Admin Dose 12.5 MG; Start 04/02/19 at 21:00 Dexamethasone (Maxidex 0.1% Oph) 2 drop BID BOTH EYES Last administered on 04/05/19at 08:32; Admin Dose 2 DROP; Start 04/03/19 at 21:00 Insulin Glargine (Lantus) 20 units DAILY@2000 SC ; Start 04/05/19 at 20:00 Lisinopril (Zestril) 20 mg BID PO ; Start 04/05/19 at 21:00 JEANNIE NICHOLSON NP Apr 05, 2019 14:45
[2019-04-05] MEDS: CYTARABINE IV SCH (15:41)
[2019-04-05] MEDS: SOD CHLORIDE 0.9% IV SCH (15:41)
[2019-04-05 19:15] VITALS: BP 152/82; PULSE 77; RESP 20
[2019-04-05] MEDS: LISINOPRIL 20 MG TAB PO SCH (20:15)
[2019-04-05] MEDS: INSULIN GLARGINE [LANTus] (100 UNITS/ML) SYG SC SCH (20:21)
[2019-04-06] VITALS (7 sets, daily range): BP systolic 130–145; BP diastolic 74–82; PULSE 72–82; RESP 16–20
[2019-04-06] MEDS: LEVOFLOXACIN 500 MG TAB PO SCH (05:16)
[2019-04-06] MEDS: INSULIN ASPART [NOVOLOG] 3 ML PEN SC SCH ×7 (07:50→20:25)
[2019-04-06] MEDS: DOXYCYCLINE 100 MG TAB PO SCH ×2 (08:25→20:16)
[2019-04-06] MEDS: FAMOTIDINE 20 MG TAB PO SCH ×2 (08:25→20:16)
[2019-04-06] MEDS: FLUCONAZOLE 100 MG TAB PO SCH (08:25)
[2019-04-06] MEDS: LISINOPRIL 20 MG TAB PO SCH ×2 (08:25→20:16)
[2019-04-06] MEDS: ACYCLOVIR 400 MG TAB PO SCH (08:25)
[2019-04-06] MEDS: ALLOPURINOL 300 MG TAB PO SCH (08:26)
[2019-04-06] MEDS: POLYETHYLENE GLYCOL 17 GM PACKET PO SCH ×2 (08:26→20:24)
[2019-04-06] MEDS: FUROSEMIDE 20 MG TAB PO SCH (08:26)
--- NOTE | 2019-04-06 09:15 | PN ---
Date/Time of Note Date/Time of Note DATE: 04/06/19 TIME: 09:09 Assessment/Plan VTE Prophylaxis Risk score (from Nsg)>0 risk: 5 SCD applied (from Ns): Yes Pharmacological prophylaxis: NA/contraindicated Pharm contraindication: thrombocytopenia Lines/Catheters IV Catheter Type (from Nrsg): [place] line still needed: Yes Urinary Cath still in place: No Assessment/Plan Hospital Course SUBJECTIVE: Denies any pain or dyspnea. Minimal nausea reported. OBJECTIVE: Physical Exam General: Adequately build 54 year-old male lying in bed in no apparent distress. HEENT: Normocephalic, atraumatic. Eyes: Anicteric sclerae, conjunctivae clear. ENT: Nasal septum midline, oral mucosa moist. Neck supple, no JVD noticed. Respiratory: Bilaterally clear breath sounds. No use of accessory muscles of respiration. No adventitious breath sounds. Cardiovascular: S1, S2 heard. Regular rate and rhythm. Abdomen: Soft, nontender, and nondistended. Bowel sounds positive in all 4 quadrants. Genitourinary: Deferred. Extremities: No cyanosis, no clubbing, no edema. Peripheral pulses palpable. Neurologic: Cranial nerves II through XII grossly intact. The patient is awake, alert, and oriented. Skin: Normal skin turgor. No skin rashes. Labs & Vitals per chart ASSESSMENT & PLAN 54-year-old male with comorbidities including hypertension and diabetes mellitus who presented to the emergency room on 03/22/2019 with febrile illness and was discharged home on oral antibiotics, who was called back on 03/23/2019 as per the instruction of the pathologist for increased blast cells on CBC drawn on 03/22/2019. 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 2. Neutropenic fevers. On ABX as per ID. Reyes cultures remain negative. 3. Diabetes mellitus type 2. Hemoglobin A1c 9.6. Continue the patient on sliding scale insulin along with basal insulin. 4. Hypertension. Continue antihypertensives. 5. Cardiomyopathy. EF of 35-40%. Continue BBs and ACEIs. Cardiology following. 6. Acute CHF exacerbation, systolic dysfunction. Continue diuretic therapy. Switch to oral diuretic therapy. 7. Fluids, electrolytes, and nutrition. Carbohydrate controlled, neutropenic diet. 8. DVT prophylaxis. Bilateral SCDs. 9. Plan. Continue to monitor for any secondary infection. Continue chemotherapy as per oncology. The patient was seen in collaboration with Dr. Avilez. Result Diagram: 04/06/19 0502 04/06/19 0503 Results 24hrs Laboratory Tests Test 04/05/19 12:17 04/05/19 17:28 04/05/19 20:13 04/06/19 02:27 Bedside Glucose 155 124 230 H 94 Test 04/06/19 05:02 04/06/19 05:03 04/06/19 08:21 White Blood Count 0.9 L Red Blood Count 2.64 L Hemoglobin 8.4 L Hematocrit 23.8 L Mean Corpuscular 90.2 Volume Mean Corpuscular 31.8 Hemoglobin Mean Corpuscular 35.3 Hemoglobin Concent Red Cell 13.1 Distribution Width Platelet Count 25 #*L Mean Platelet 10.0 Volume Immature 0.000 L Granulocytes % Neutrophils % Segmented 23 L Neutrophils % (Manual) Band Neutrophils % 1 (Manual) Lymphocytes % Lymphocytes % 76 H (Manual) Monocytes % Eosinophils % Basophils % Nucleated Red 0.0 Blood Cells % Immature 0.000 Granulocytes # Neutrophils # Neutrophils # 0.2 L (Manual) Band Neutrophils # 0.0 Lymphocytes 0.6 L (Manual) Lymphocytes # Monocytes # Eosinophils # Basophils # Nucleated Red Blood Cells # Platelet Estimate SIG DECREASED Giant Platelets 1 H Fibrinogen 380.0 Phosphorus Level 4.1 Magnesium Level 2.1 Sodium Level 138 Potassium Level 4.0 Chloride Level 102 Carbon Dioxide 25 Level Anion Gap 11 Blood Urea 11 Nitrogen Creatinine 0.51 L Est Glomerular > 60 Filtrat Rate mL/min Glucose Level 84 Uric Acid 2.0 L Calcium Level 8.4 Total Bilirubin 0.8 Direct Bilirubin 0.00 Indirect Bilirubin 0.8 Aspartate Amino 57 H Transf (AST/SGOT) Alanine 72 H Aminotransferase ( ALT/SGPT) Alkaline 93 Phosphatase Lactate 445 Dehydrogenase Total Protein 6.2 Albumin 3.2 L Globulin 3.00 Albumin/Globulin 1.06 Ratio Bedside Glucose 87 Exam/Review of Systems Exam Vitals Vital Signs Date Temp Pulse Resp B/P (MAP) Pulse Ox O2 O2 Flow FiO2 Time Delivery Rate 04/06/19 98.4 72 16 142/82 100 Room Air 07:35 (102) Intake and Output 04/05/19 04/05/19 04/06/19 1515:00 23:00 07:00 IntakeIntake Total 780 ml 909 ml 680 ml BalanceBalance 780 ml 909 ml 680 ml Results Results 24hrs Laboratory Tests Test 04/05/19 12:17 04/05/19 17:28 04/05/19 20:13 04/06/19 02:27 Bedside Glucose 155 124 230 H 94 Test 04/06/19 05:02 04/06/19 05:03 04/06/19 08:21 White Blood Count 0.9 L Red Blood Count 2.64 L Hemoglobin 8.4 L Hematocrit 23.8 L Mean Corpuscular 90.2 Volume Mean Corpuscular 31.8 Hemoglobin Mean Corpuscular 35.3 Hemoglobin Concent Red Cell 13.1 Distribution Width Platelet Count 25 #*L Mean Platelet 10.0 Volume Immature 0.000 L Granulocytes % Neutrophils % Segmented 23 L Neutrophils % (Manual) Band Neutrophils % 1 (Manual) Lymphocytes % Lymphocytes % 76 H (Manual) Monocytes % Eosinophils % Basophils % Nucleated Red 0.0 Blood Cells % Immature 0.000 Granulocytes # Neutrophils # Neutrophils # 0.2 L (Manual) Band Neutrophils # 0.0 Lymphocytes 0.6 L (Manual) Lymphocytes # Monocytes # Eosinophils # Basophils # Nucleated Red Blood Cells # Platelet Estimate SIG DECREASED Giant Platelets 1 H Fibrinogen 380.0 Phosphorus Level 4.1 Magnesium Level 2.1 Sodium Level 138 Potassium Level 4.0 Chloride Level 102 Carbon Dioxide 25 Level Anion Gap 11 Blood Urea 11 Nitrogen Creatinine 0.51 L Est Glomerular > 60 Filtrat Rate mL/min Glucose Level 84 Uric Acid 2.0 L Calcium Level 8.4 Total Bilirubin 0.8 Direct Bilirubin 0.00 Indirect Bilirubin 0.8 Aspartate Amino 57 H Transf (AST/SGOT) Alanine 72 H Aminotransferase ( ALT/SGPT) Alkaline 93 Phosphatase Lactate 445 Dehydrogenase Total Protein 6.2 Albumin 3.2 L Globulin 3.00 Albumin/Globulin 1.06 Ratio Bedside Glucose 87 Medications Medication Current Medications Insulin Aspart (Novolog Insulin Pen) NOVOLOG *MILD* ALGORITHM WITH MEALS BEDTIME SC Last administered on 04/05/19at 20:20; Admin Dose 2 UNIT; Start 03/23/19 at 18:00 IV Flush (NS 3 ml) 3 ml PER PROTOCOL IV ; Start 03/23/19 at 18:00 Ondansetron HCl (Zofran Inj) 4 mg Q6H PRN IV NAUSEA/VOMITING Last administered on 04/05/19at 17:12; Admin Dose 4 MG; Start 03/23/19 at 18:00 Acetaminophen (Tylenol Tab) 650 mg Q6H PRN PO .PAIN 1-3 OR TEMP Last administered on 03/29/19at 23:39; Admin Dose 650 MG; Start 03/23/19 at 18:00 Acetaminophen/ Hydrocodone Bitart ([place] (5/325)) 1 tab Q6H PRN PO .MOD PAIN 4- 6 Last administered on 04/05/19at 22:36; Admin Dose 1 TAB; Start 03/23/19 at 18:00 Polyethylene Glycol (Miralax) 17 gm BID PO Last administered on 04/06/19at 08:26; Admin Dose 17 GM; Start 03/23/19 at 21:00 Miscellaneous Information 1 ea NOTE XX ; Start 03/23/19 at 18:00 Glucose (Glutose) 15 gm Q15M PRN PO DECREASED GLUCOSE; Start 03/23/19 at 18:00 Glucose (Glutose) 22.5 gm Q15M PRN PO DECREASED GLUCOSE; Start 03/23/19 at 18:00 Dextrose (D50w Syringe) 25 ml Q15M PRN IV DECREASED GLUCOSE; Start 03/23/19 at 18:00 Dextrose (D50w Syringe) 50 ml Q15M PRN IV DECREASED GLUCOSE; Start 03/23/19 at 18:00 Glucagon (Glucagen) 1 mg Q15M PRN IM DECREASED GLUCOSE; Start 03/23/19 at 18:00 Glucose (Glutose) 15 gm Q15M PRN BUCCAL DECREASED GLUCOSE; Start 03/23/19 at 18:00 Hydralazine HCl (Apresoline) 10 mg Q4H PRN IV FOR SBP>170; Start 03/26/19 at 03:30 Albuterol/ Ipratropium (Duoneb) 3 ml Q2H RESP THERAPY PRN HHN sob; Start 03/26/19 at 12:30 Allopurinol (Zyloprim) 300 mg DAILY PO Last administered on 04/06/19at 08:26; Admin Dose 300 MG; Start 03/29/19 at 15:30 Cytarabine 0.28 gm/Sodium Chloride 1,000 ml @ 41.667 mls/ hr Q24H IV Last administered on 04/05/19at 15:41; Admin Dose 41.667 MLS/HR; Start 03/30/19 at 15:00; Stop 04/06/19 at 14:59 Ondansetron HCl 8 mg/Sodium Chloride 54 ml @ 216 mls/hr Q8H PRN IV NAUSEA AND/OR VOMITING; Start 03/30/19 at 14:30; Stop 04/06/19 at 14:29 Furosemide (Lasix) 20 mg DAILY PO Last administered on 04/06/19 08:26; Admin Dose 20 MG; Start 04/02/19 at 09:00 Insulin Aspart (Novolog Insulin Pen) 5 unit WITH MEALS SC Last administered on 04/06/19 08:24; Admin Dose 5 UNIT; Start 04/02/19 at 11:40 Fluconazole (Diflucan) 100 mg DAILY PO Last administered on 04/06/19 08:25; Admin Dose 100 MG; Start 04/02/19 at 15:30 Acyclovir (Zovirax) 400 mg DAILY PO Last administered on 04/06/19 08:25; Admin Dose 400 MG; Start 04/03/19 at 09:00 Levofloxacin (Levaquin) 500 mg DAILY@06 PO Last administered on 04/06/19 05:16; Admin Dose 500 MG; Start 04/03/19 at 06:00 Doxycycline Hyclate (Vibramycin) 100 mg BID PO Last administered on 04/06/19 08:25; Admin Dose 100 MG; Start 04/02/19 at 21:00 Famotidine (Pepcid) 20 mg BID PO Last administered on 04/06/19 08:25; Admin Dose 20 MG; Start 04/02/19 at 21:00 Al Hydrox/Mg Hydrox/Simethicone (Mag-Al Plus) 30 ml Q6H PRN PO GASTROINTESTINAL UPSET; Start 04/02/19 at 18:30 Carvedilol (Coreg) 12.5 mg BID PO Last administered on 04/06/19 08:26; Admin Dose 12.5 MG; Start 04/02/19 at 21:00 Dexamethasone (Maxidex 0.1% Oph) 2 drop BID BOTH EYES Last administered on 04/05/19 20:22; Admin Dose 2 DROP; Start 04/03/19 at 21:00 Insulin Glargine (Lantus) 20 units DAILY@2000 SC Last administered on 04/05/19 20:21; Admin Dose 20 UNITS; Start 04/05/19 at 20:00 Lisinopril (Zestril) 20 mg BID PO Last administered on 04/06/19at 08:25; Admin Dose 20 MG; Start 04/05/19 at 21:00 KATIE PACE NP Apr 06, 2019 09:15
[2019-04-06] MEDS: DEXAMETHASONE 0.1% 5 ML OPH BOTH EYES SCH ×2 (10:54→20:17)
--- NOTE | 2019-04-06 10:54 | PN ---
DATE: 04/06/2019 MEDICAL ONCOLOGY/HEMATOLOGY SUBJECTIVE: Patient is feeling well. He denies complaints of nausea or vomiting. He has had some o ccasional diarrhea, but no abdominal cramping. He has no complaints of mouth soreness. No eye disco mfort. Appetite is good. The patient has had no gingival bleeding but has had occasional mild epistaxis. He denies shaking chills or night sweats. OBJECTIVE: GENERAL: The patient is a well-developed, well-nourished male in no acute distress. VITAL SIGNS: Temperature 98.4 orally, pulse 72 per minute and regular, respirations 16, blood pressu re 142/82 and pulse oximetry 100% on room air. SKIN: Occasional ecchymoses but no petechiae or rashes. HEENT: Normocephalic. No evidence of trauma. Pupils equal, round, react to light and accommodation . Sclerae nonicteric. Oral mucosa is moist without lesions. There are no mucosal ulcerations or pu rpura. Tongue is well papillated. There is no gingival hyperplasia, no hypertrophy of Waldeyer ring . NECK: Supple. No jugular venous distention or thyroid enlargement. No carotid bruits. CHEST: Clear to auscultation and percussion. No rhonchi, wheezes, rales or rubs. There is no pain on percussion of the spine, sternum, clavicles or ribs. There is a double lumen subcutaneously tunne led [place] catheter in the right anterior chest wall. There is no tenderness or erythema along the tunnel site. Entrance site is clear. HEART: Regular sinus rhythm, no S3, S4 or murmurs. ABDOMEN: Flat and soft. There is no organomegaly, mass or tenderness. No rebound. Bowel sounds are active. EXTREMITIES: Good range of motion. No clubbing, no edema or cyanosis. No palpable cords or Homans sign. NEUROLOGIC: Normal. LABORATORY DATA: White count today is 900 with an absolute neutrophil count of 200, hemoglobin 8.4, hematocrit 23.8, MCV 90.2, platelet count 25,000. Fibrinogen this morning is 380.6. Sodium 138, potassium 40, creatinine 0.51, BUN 11. Uric acid 2, t otal bilirubin 0.8, direct bilirubin 0, AST 57, ALT 72, alkaline phosphatase 93 and LDH 445. ASSESSMENT: 1. Acute myelogenous leukemia, undergoing induction therapy, today is day #7 of continuous infusion of cytosine arabinoside. 2. Pancytopenia secondary to #1. DISCUSSION: The patient will complete cytosine arabinoside infusion today and therefore, will have c ompleted his first course of induction chemotherapy. I have explained to the patient that now expect that he will have a prolonged period of pancytopenia which will last 2 to 3 weeks. During this time, the patient will require support with red blood cell and platelet transfusions. Platelet count is now 25,000. Will withhold platelet transfusions until the patient's platelet count is below 10,000 or there is clinical bleeding. This will help to delay the development of alloantib odies. Dictated By: ERIN COLLADO MD SR/NTS Conf#: [id number] DID#: [id number] CC: KURTIS WHITTAKER MD;*End*
[2019-04-06] MEDS: ONDANSETRON 4 MG INJ IV PRN (12:46)
--- NOTE | 2019-04-06 16:08 | CONS ---
Consultation Date/Type/Reason Admit Date/Time Mar 23, 2019 at 16:10 Initial Consult Date SUBJECTIVE: Pt is sleepy, afebrile, resting in bed comfortably. VS: stable T: 98.0 LABS: Reviewed. WBC-0.9 Hgb/Ht==8.4/23.8 Plt=25 Indwelling's: Right IJ Port-A-Cath Blood cultures and urine culture negative Antimicrobials: Doxycycline, levofloxacin, fluconazole, acyclovir Physical examination: GEN: Well-developed middle-aged man who is alert in no distress HENT: head atraumatic normocephalic, sclera nonicteric vehicle mucosa pink, neck is supple PULM: chest rise symmetrical breath sounds clear Heart: S1-S2 Abdomen: soft, bowel sounds present Extremities: no cyanosis or edema Assessment: 1. S/p neutropenia 2. AML, newly diagnosed 3. Diabetes 4. Hypertension 5. Pancytopenia Plan:Pt is stable. Continue prophylactic antimicrobials. Follow oncology recommendations. Pt is getting transfusion today. Requesting Provider: KATIE PACE NP Date/Time of Note DATE: 04/06/19 TIME: 16:04 Exam/Review of Systems Exam Vitals Vital Signs Date Temp Pulse Resp B/P (MAP) Pulse Ox O2 O2 Flow FiO2 Time Delivery Rate 04/06/19 98.0 16 130/75 100 Room Air 14:17 (93) 04/06/19 72 07:35 Intake and Output 04/05/19 04/05/19 04/06/19 1515:00 23:00 07:00 IntakeIntake Total 780 ml 909 ml 680 ml BalanceBalance 780 ml 909 ml 680 ml Results Result Diagram: 04/06/19 0502 04/06/19 0503 Results 24hrs Laboratory Tests Test 04/05/19 17:28 04/05/19 20:13 04/06/19 02:27 04/06/19 05:02 Bedside Glucose 124 230 H 94 White Blood Count 0.9 L Red Blood Count 2.64 L Hemoglobin 8.4 L Hematocrit 23.8 L Mean Corpuscular 90.2 Volume Mean Corpuscular 31.8 Hemoglobin Mean Corpuscular 35.3 Hemoglobin Concent Red Cell 13.1 Distribution Width Platelet Count 25 #*L Mean Platelet 10.0 Volume Immature 0.000 L Granulocytes % Neutrophils % Segmented 23 L Neutrophils % (Manual) Band Neutrophils % 1 (Manual) Lymphocytes % Lymphocytes % 76 H (Manual) Monocytes % Eosinophils % Basophils % Nucleated Red 0.0 Blood Cells % Immature 0.000 Granulocytes # Neutrophils # Neutrophils # 0.2 L (Manual) Band Neutrophils # 0.0 Lymphocytes 0.6 L (Manual) Lymphocytes # Monocytes # Eosinophils # Basophils # Nucleated Red Blood Cells # Platelet Estimate SIG DECREASED Giant Platelets 1 H Fibrinogen 380.0 Phosphorus Level 4.1 Magnesium Level 2.1 Test 04/06/19 05:03 04/06/19 08:21 04/06/19 12:27 Sodium Level 138 Potassium Level 4.0 Chloride Level 102 Carbon Dioxide 25 Level Anion Gap 11 Blood Urea 11 Nitrogen Creatinine 0.51 L Est Glomerular > 60 Filtrat Rate mL/min Glucose Level 84 Uric Acid 2.0 L Calcium Level 8.4 Total Bilirubin 0.8 Direct Bilirubin 0.00 Indirect Bilirubin 0.8 Aspartate Amino 57 H Transf (AST/SGOT) Alanine 72 H Aminotransferase ( ALT/SGPT) Alkaline 93 Phosphatase Lactate 445 Dehydrogenase Total Protein 6.2 Albumin 3.2 L Globulin 3.00 Albumin/Globulin 1.06 Ratio Bedside Glucose 87 155 Medications Medication Current Medications Insulin Aspart (Novolog Insulin Pen) NOVOLOG *MILD* ALGORITHM WITH MEALS BE DTIME SC Last administered on 04/06/19 12:41; Admin Dose 1 UNIT; Start 03/23/19 at 18:00 IV Flush (NS 3 ml) 3 ml PER PROTOCOL IV ; Start 03/23/19 at 18:00 Ondansetron HCl (Zofran Inj) 4 mg Q6H PRN IV NAUSEA/VOMITING Last administered on 04/06/19 12:46; Admin Dose 4 MG; Start 03/23/19 at 18:00 Acetaminophen (Tylenol Tab) 650 mg Q6H PRN PO .PAIN 1-3 OR TEMP Last administered on 03/29/19 23:39; Admin Dose 650 MG; Start 03/23/19 at 18:00 Acetaminophen/ Hydrocodone Bitart ([place] (5/325)) 1 tab Q6H PRN PO .MOD PAIN 4- 6 Last administered on 04/05/19 22:36; Admin Dose 1 TAB; Start 03/23/19 at 18:00 Polyethylene Glycol (Miralax) 17 gm BID PO Last administered on 04/06/19 08:26; Admin Dose 17 GM; Start 03/23/19 at 21:00 Miscellaneous Information 1 ea NOTE XX ; Start 03/23/19 at 18:00 Glucose (Glutose) 15 gm Q15M PRN PO DECREASED GLUCOSE; Start 03/23/19 at 18:00 Glucose (Glutose) 22.5 gm Q15M PRN PO DECREASED GLUCOSE; Start 03/23/19 at 18:00 Dextrose (D50w Syringe) 25 ml Q15M PRN IV DECREASED GLUCOSE; Start 03/23/19 at 18:00 Dextrose (D50w Syringe) 50 ml Q15M PRN IV DECREASED GLUCOSE; Start 03/23/19 at 18:00 Glucagon (Glucagen) 1 mg Q15M PRN IM DECREASED GLUCOSE; Start 03/23/19 at 18:00 Glucose (Glutose) 15 gm Q15M PRN BUCCAL DECREASED GLUCOSE; Start 03/23/19 at 18:00 Hydralazine HCl (Apresoline) 10 mg Q4H PRN IV FOR SBP>170; Start 03/26/19 at 03:30 Albuterol/ Ipratropium (Duoneb) 3 ml Q2H RESP THERAPY PRN HHN sob; Start 03/26/19 at 12:30 Allopurinol (Zyloprim) 300 mg DAILY PO Last administered on 04/06/19 08:26; Admin Dose 300 MG; Start 03/29/19 at 15:30 Furosemide (Lasix) 20 mg DAILY PO Last administered on 04/06/19 08:26; Admin Dose 20 MG; Start 04/02/19 at 09:00 Insulin Aspart (Novolog Insulin Pen) 5 unit WITH MEALS SC Last administered on 04/06/19at 12:42; Admin Dose 5 UNIT; Start 04/02/19 at 11:40 Fluconazole (Diflucan) 100 mg DAILY PO Last administered on 04/06/19 08:25; Admin Dose 100 MG; Start 04/02/19 at 15:30 Acyclovir (Zovirax) 400 mg DAILY PO Last administered on 04/06/19 08:25; Admin Dose 400 MG; Start 04/03/19 at 09:00 Levofloxacin (Levaquin) 500 mg DAILY@06 PO Last administered on 04/06/19at 05:16; Admin Dose 500 MG; Start 6/26/19 at 06:00 Doxycycline Hyclate (Vibramycin) 100 mg BID PO Last administered on 04/06/19 08:25; Admin Dose 100 MG; Start 04/02/19 at 21:00 Famotidine (Pepcid) 20 mg BID PO Last administered on 04/06/19 08:25; Admin Dose 20 MG; Start 04/02/19 at 21:00 Al Hydrox/Mg Hydrox/Simethicone (Mag-Al Plus) 30 ml Q6H PRN PO GASTROINTESTINAL UPSET; Start 04/02/19 at 18:30 Carvedilol (Coreg) 12.5 mg BID PO Last administered on 04/06/19 08:26; Admin Dose 12.5 MG; Start 04/02/19 at 21:00 Dexamethasone (Maxidex 0.1% Oph) 2 drop BID BOTH EYES Last administered on 04/06/19 10:54; Admin Dose 2 DROP; Start 04/03/19 at 21:00 Insulin Glargine (Lantus) 20 units DAILY@2000 SC Last administered on 04/05/19 20:21; Admin Dose 20 UNITS; Start 04/05/19 at 20:00 Lisinopril (Zestril) 20 mg BID PO Last administered on 04/06/19 08:25; Admin Dose 20 MG; Start 04/05/19 at 21:00 GRACIELA CARLIN Apr 06, 2019 16:08
[2019-04-06] MEDS: INSULIN GLARGINE [LANTus] (100 UNITS/ML) SYG SC SCH (20:20)
[2019-04-07 00:07] VITALS: BP 125/70; PULSE 72; RESP 18
[2019-04-07] MEDS: LEVOFLOXACIN 500 MG TAB PO SCH (05:47)
[2019-04-07 06:33] VITALS: BP 134/78; PULSE 79; RESP 20
[2019-04-07 07:20] VITALS: BP 136/77; PULSE 78; RESP 19
--- NOTE | 2019-04-07 08:43 | PN ---
Date/Time of Note Date/Time of Note DATE: 04/07/19 TIME: 08:41 Assessment/Plan VTE Prophylaxis Risk score (from Ns)>0 risk: 5 SCD applied (from Ns): Yes Pharmacological prophylaxis: NA/contraindicated Pharm contraindication: thrombocytopenia Lines/Catheters IV Catheter Type (from [facility]): [place] line still needed: Yes Urinary Cath still in place: No Assessment/Plan Hospital Course SUBJECTIVE: Denies any pain or dyspnea. Had a low grade fever in the morning. Last night, the patient felt dizzy after he used the restroom and he eased down to the floor. He denied hitting his head. He denied any significant impact of any other body organs. He denied any pain. OBJECTIVE: Physical Exam General: Adequately build 54 year-old male lying in bed in no apparent distress. HEENT: Normocephalic, atraumatic. Eyes: Anicteric sclerae, conjunctivae clear. ENT: Nasal septum midline, oral mucosa moist. Neck supple, no JVD noticed. Respiratory: Bilaterally clear breath sounds. No use of accessory muscles of respiration. No adventitious breath sounds. Cardiovascular: S1, S2 heard. Regular rate and rhythm. Abdomen: Soft, nontender, and nondistended. Bowel sounds positive in all 4 quadrants. Genitourinary: Deferred. Extremities: No cyanosis, no clubbing, no edema. Peripheral pulses palpable. Neurologic: Cranial nerves II through XII grossly intact. The patient is awake, alert, and oriented. Skin: Normal skin turgor. No skin rashes. Labs & Vitals per chart ASSESSMENT & PLAN 54-year-old male with comorbidities including hypertension and diabetes mellitus who presented to the emergency room on 03/22/2019 with febrile illness and was discharged home on oral antibiotics, who was called back on 03/23/2019 as per the instruction of the pathologist for increased blast cells on CBC drawn on 03/22/2019. 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 2. Neutropenic fevers. On antimicrobials as per ID. Reyes cultures remain negative. 3. Diabetes mellitus type 2. Hemoglobin A1c 9.6. Continue the patient on sliding scale insulin along with pre-meal insulin and basal insulin. 4. Hypertension. Continue antihypertensives. 5. Cardiomyopathy. EF of 35-40%. Continue BBs and ACEIs. Cardiology following. 6. Acute CHF exacerbation, systolic dysfunction. Continue diuretic therapy. Switched to oral diuretic therapy. 7. Fluids, electrolytes, and nutrition. Carbohydrate controlled, neutropenic diet. 8. DVT prophylaxis. Bilateral SCDs. 9. Plan. Continue to monitor for any secondary infection. Discharge the patient home once his pancytopenia is improved. Transfusion of blood products will be deferred to oncology. The patient was seen in collaboration with Dr. Avilez. Result Diagram: 04/07/19 0425 04/07/19 0425 Results 24hrs Laboratory Tests Test 04/06/19 12:27 04/06/19 17:49 04/06/19 20:14 04/07/19 04:25 Bedside Glucose 155 141 172 White Blood Count 0.6 #L Red Blood Count 2.51 L Hemoglobin 7.9 L Hematocrit 22.5 L Mean Corpuscular 89.6 Volume Mean Corpuscular 31.5 Hemoglobin Mean Corpuscular 35.1 Hemoglobin Concent Red Cell 12.9 Distribution Width Platelet Count 18 #*L Mean Platelet 11.2 H Volume Immature 1.700 H Granulocytes % Neutrophils % Segmented 11 L Neutrophils % (Manual) Lymphocytes % Lymphocytes % 85 H (Manual) Monocytes % Monocytes % 2 (Manual) Eosinophils % Basophils % Basophils % 1 (Manual) Metamyelocytes % 1 H (manual) Nucleated Red 0.0 Blood Cells % Immature 0.010 Granulocytes # Neutrophils # Lymphocytes 0.5 L (Manual) Lymphocytes # Monocytes # Monocytes # 0.0 L (Manual) Eosinophils # Basophils # Basophils # 0.0 (Manual) Metamyelocytes # 0.0 Nucleated Red Blood Cells # Platelet Estimate SIG DECREASED Anisocytosis 1+ Ovalocytes 1+ Sodium Level 135 Potassium Level 4.2 Chloride Level 102 Carbon Dioxide 25 Level Anion Gap 8 Blood Urea 9 Nitrogen Creatinine 0.52 L Est Glomerular > 60 Filtrat Rate mL/min Glucose Level 105 Uric Acid 1.9 L Calcium Level 8.3 L Phosphorus Level 4.4 Magnesium Level 2.0 Total Bilirubin 0.7 Direct Bilirubin 0.00 Indirect Bilirubin 0.7 Aspartate Amino 16 # Transf (AST/SGOT) Alanine 54 Aminotransferase ( ALT/SGPT) Alkaline 87 Phosphatase Lactate 304 L Dehydrogenase Total Protein 6.6 Albumin 3.2 L Globulin 3.40 H Albumin/Globulin 0.94 Ratio Exam/Review of Systems Exam Vitals Vital Signs Date Temp Pulse Resp B/P (MAP) Pulse Ox O2 O2 Flow FiO2 Time Delivery Rate 04/07/19 98.5 08:26 04/07/19 78 19 136/77 99 Room Air 07:20 (96) Intake and Output 04/06/19 04/06/19 04/07/19 1515:00 23:00 07:00 IntakeIntake Total 600 ml 446 ml 280 ml BalanceBalance 600 ml 446 ml 280 ml Results Results 24hrs Laboratory Tests Test 04/06/19 12:27 04/06/19 17:49 04/06/19 20:14 04/07/19 04:25 Bedside Glucose 155 141 172 White Blood Count 0.6 #L Red Blood Count 2.51 L Hemoglobin 7.9 L Hematocrit 22.5 L Mean Corpuscular 89.6 Volume Mean Corpuscular 31.5 Hemoglobin Mean Corpuscular 35.1 Hemoglobin Concent Red Cell 12.9 Distribution Width Platelet Count 18 #*L Mean Platelet 11.2 H Volume Immature 1.700 H Granulocytes % Neutrophils % Segmented 11 L Neutrophils % (Manual) Lymphocytes % Lymphocytes % 85 H (Manual) Monocytes % Monocytes % 2 (Manual) Eosinophils % Basophils % Basophils % 1 (Manual) Metamyelocytes % 1 H (manual) Nucleated Red 0.0 Blood Cells % Immature 0.010 Granulocytes # Neutrophils # Lymphocytes 0.5 L (Manual) Lymphocytes # Monocytes # Monocytes # 0.0 L (Manual) Eosinophils # Basophils # Basophils # 0.0 (Manual) Metamyelocytes # 0.0 Nucleated Red Blood Cells # Platelet Estimate SIG DECREASED Anisocytosis 1+ Ovalocytes 1+ Sodium Level 135 Potassium Level 4.2 Chloride Level 102 Carbon Dioxide 25 Level Anion Gap 8 Blood Urea 9 Nitrogen Creatinine 0.52 L Est Glomerular > 60 Filtrat Rate mL/min Glucose Level 105 Uric Acid 1.9 L Calcium Level 8.3 L Phosphorus Level 4.4 Magnesium Level 2.0 Total Bilirubin 0.7 Direct Bilirubin 0.00 Indirect Bilirubin 0.7 Aspartate Amino 16 # Transf (AST/SGOT) Alanine 54 Aminotransferase ( ALT/SGPT) Alkaline 87 Phosphatase Lactate 304 L Dehydrogenase Total Protein 6.6 Albumin 3.2 L Globulin 3.40 H Albumin/Globulin 0.94 Ratio Medications Medication Current Medications Insulin Aspart (Novolog Insulin Pen) NOVOLOG *MILD* ALGORITHM WITH MEALS BEDTIME SC Last administered on 04/06/19at 18:02; Admin Dose 1 UNIT; Start 03/23/19 at 18:00 IV Flush (NS 3 ml) 3 ml PER PROTOCOL IV ; Start 03/23/19 at 18:00 Ondansetron HCl (Zofran Inj) 4 mg Q6H PRN IV NAUSEA/VOMITING Last administered on 04/06/19at 12:46; Admin Dose 4 MG; Start 03/23/19 at 18:00 Acetaminophen (Tylenol Tab) 650 mg Q6H PRN PO .PAIN 1-3 OR TEMP Last administered on 03/29/19 23:39; Admin Dose 650 MG; Start 03/23/19 at 18:00 Acetaminophen/ Hydrocodone Bitart ([place] (5/325)) 1 tab Q6H PRN PO .MOD PAIN 4- 6 Last administered on 04/05/19 22:36; Admin Dose 1 TAB; Start 03/23/19 at 18:00 Polyethylene Glycol (Miralax) 17 gm BID PO Last administered on 04/06/19 08:26; Admin Dose 17 GM; Start 03/23/19 at 21:00 Miscellaneous Information 1 ea NOTE XX ; Start 03/23/19 at 18:00 Glucose (Glutose) 15 gm Q15M PRN PO DECREASED GLUCOSE; Start 03/23/19 at 18:00 Glucose (Glutose) 22.5 gm Q15M PRN PO DECREASED GLUCOSE; Start 03/23/19 at 18:00 Dextrose (D50w Syringe) 25 ml Q15M PRN IV DECREASED GLUCOSE; Start 03/23/19 at 18:00 Dextrose (D50w Syringe) 50 ml Q15M PRN IV DECREASED GLUCOSE; Start 03/23/19 at 18:00 Glucagon (Glucagen) 1 mg Q15M PRN IM DECREASED GLUCOSE; Start 03/23/19 at 18:00 Glucose (Glutose) 15 gm Q15M PRN BUCCAL DECREASED GLUCOSE; Start 03/23/19 at 18:00 Hydralazine HCl (Apresoline) 10 mg Q4H PRN IV FOR SBP>170; Start 03/26/19 at 03:30 Albuterol/ Ipratropium (Duoneb) 3 ml Q2H RESP THERAPY PRN HHN sob; Start 03/09 05/27 at 12:30 Allopurinol (Zyloprim) 300 mg DAILY PO Last administered on 04/06/19 08:26; Admin Dose 300 MG; Start 03/29/19 at 15:30 Furosemide (Lasix) 20 mg DAILY PO Last administered on 04/06/19 08:26; Admin Dose 20 MG; Start 04/02/19 at 09:00 Insulin Aspart (Novolog Insulin Pen) 5 unit WITH MEALS SC Last administered on 04/06/19 18:03; Admin Dose 5 UNIT; Start 04/02/19 at 11:40 Fluconazole (Diflucan) 100 mg DAILY PO Last administered on 04/06/19 08:25; Admin Dose 100 MG; Start 04/02/19 at 15:30 Acyclovir (Zovirax) 400 mg DAILY PO Last administered on 04/06/19 08:25; Admin Dose 400 MG; Start 04/03/19 at 09:00 Levofloxacin (Levaquin) 500 mg DAILY@06 PO Last administered on 04/07/19 05:47; Admin Dose 500 MG; Start 04/03/19 at 06:00 Doxycycline Hyclate (Vibramycin) 100 mg BID PO Last administered on 04/06/19 20:16; Admin Dose 100 MG; Start 04/02/19 at 21:00 Famotidine (Pepcid) 20 mg BID PO Last administered on 04/06/19 20:16; Admin Dose 20 MG; Start 04/02/19 at 21:00 Al Hydrox/Mg Hydrox/Simethicone (Mag-Al Plus) 30 ml Q6H PRN PO GASTROINTESTINAL UPSET; Start 04/02/19 at 18:30 Carvedilol (Coreg) 12.5 mg BID PO Last administered on 04/06/19 20:17; Admin Dose 12.5 MG; Start 04/02/19 at 21:00 Dexamethasone (Maxidex 0.1% Oph) 2 drop BID BOTH EYES Last administered on 04/06/19 20:17; Admin Dose 2 DROP; Start 04/03/19 at 21:00 Insulin Glargine (Lantus) 20 units DAILY@2000 SC Last administered on 04/06/19 20:20; Admin Dose 20 UNITS; Start 04/05/19 at 20:00 Lisinopril (Zestril) 20 mg BID PO Last administered on 04/06/19 20:16; Admin Dose 20 MG; Start 6/28/19 at 21:00 KATIE PACE NP Apr 07, 2019 08:43
[2019-04-07] MEDS: POLYETHYLENE GLYCOL 17 GM PACKET PO SCH ×2 (09:00→21:00)
[2019-04-07] MEDS: INSULIN ASPART [NOVOLOG] 3 ML PEN SC SCH ×7 (09:12→20:51)
[2019-04-07] MEDS: FAMOTIDINE 20 MG TAB PO SCH ×2 (09:13→20:46)
[2019-04-07] MEDS: ACYCLOVIR 400 MG TAB PO SCH (09:13)
[2019-04-07] MEDS: FLUCONAZOLE 100 MG TAB PO SCH (09:13)
[2019-04-07] MEDS: ALLOPURINOL 300 MG TAB PO SCH (09:13)
[2019-04-07] MEDS: DEXAMETHASONE 0.1% 5 ML OPH BOTH EYES SCH ×2 (09:14→20:47)
[2019-04-07] MEDS: FUROSEMIDE 20 MG TAB PO SCH (09:14)
[2019-04-07] MEDS: LISINOPRIL 20 MG TAB PO SCH ×2 (09:51→20:46)
[2019-04-07] MEDS: DOXYCYCLINE 100 MG TAB PO SCH ×2 (09:51→20:46)
--- NOTE | 2019-04-07 12:06 | CONS ---
Consultation Date/Type/Reason Admit Date/Time Mar 23, 2019 at 16:10 Initial Consult Date SUBJECTIVE: Pt is awake, alert, afebrile, resting in bed comfortably. Pt had mild fever in AM today 99.5 VS: stable T: 98.5 LABS: Reviewed. WBC-0.6 Hgb/Ht==7.9/22.5 Plt=18 Indwelling's: Right IJ Port-A-Cath Blood cultures and urine culture negative Antimicrobials: Doxycycline, levofloxacin, fluconazole, acyclovir Physical examination: GEN: Well-developed middle-aged man who is alert in no distress HENT: head atraumatic normocephalic, sclera nonicteric vehicle mucosa pink, neck is supple PULM: chest rise symmetrical breath sounds clear Heart: S1-S2 Abdomen: soft, bowel sounds present Extremities: no cyanosis or edema Assessment: 1. S/p neutropenia 2. AML, newly diagnosed 3. Diabetes 4. Hypertension 5. Pancytopenia Plan:Pt is stable. Continue prophylactic antimicrobials. Transfuse per oncology recommendations. Requesting Provider: KATIE PACE NP Date/Time of Note DATE: 04/07/19 TIME: 12:04 Exam/Review of Systems Exam Vitals Vital Signs Date Temp Pulse Resp B/P (MAP) Pulse Ox O2 O2 Flow FiO2 Time Delivery Rate 04/07/19 98.5 08:26 04/07/19 78 19 136/77 99 Room Air 07:20 (96) Intake and Output 04/06/19 04/06/19 04/07/19 1515:00 23:00 07:00 IntakeIntake Total 600 ml 446 ml 280 ml BalanceBalance 600 ml 446 ml 280 ml Results Result Diagram: 04/07/19 0425 04/07/19 0425 Results 24hrs Laboratory Tests Test 04/06/19 12:27 04/06/19 17:49 04/06/19 20:14 04/07/19 04:25 Bedside Glucose 155 141 172 White Blood Count 0.6 #L Red Blood Count 2.51 L Hemoglobin 7.9 L Hematocrit 22.5 L Mean Corpuscular 89.6 Volume Mean Corpuscular 31.5 Hemoglobin Mean Corpuscular 35.1 Hemoglobin Concent Red Cell 12.9 Distribution Width Platelet Count 18 #*L Mean Platelet 11.2 H Volume Immature 1.700 H Granulocytes % Neutrophils % Segmented 11 L Neutrophils % (Manual) Lymphocytes % Lymphocytes % 85 H (Manual) Monocytes % Monocytes % 2 (Manual) Eosinophils % Basophils % Basophils % 1 (Manual) Metamyelocytes % 1 H (manual) Nucleated Red 0.0 Blood Cells % Immature 0.010 Granulocytes # Neutrophils # Lymphocytes 0.5 L (Manual) Lymphocytes # Monocytes # Monocytes # 0.0 L (Manual) Eosinophils # Basophils # Basophils # 0.0 (Manual) Metamyelocytes # 0.0 Nucleated Red Blood Cells # Platelet Estimate SIG DECREASED Anisocytosis 1+ Ovalocytes 1+ Sodium Level 135 Potassium Level 4.2 Chloride Level 102 Carbon Dioxide 25 Level Anion Gap 8 Blood Urea 9 Nitrogen Creatinine 0.52 L Est Glomerular > 60 Filtrat Rate mL/min Glucose Level 105 Uric Acid 1.9 L Calcium Level 8.3 L Phosphorus Level 4.4 Magnesium Level 2.0 Total Bilirubin 0.7 Direct Bilirubin 0.00 Indirect Bilirubin 0.7 Aspartate Amino 16 # Transf (AST/SGOT) Alanine 54 Aminotransferase ( ALT/SGPT) Alkaline 87 Phosphatase Lactate 304 L Dehydrogenase Total Protein 6.6 Albumin 3.2 L Globulin 3.40 H Albumin/Globulin 0.94 Ratio Test 04/07/19 08:42 Bedside Glucose 97 Medications Medication Current Medications Insulin Aspart (Novolog Insulin Pen) NOVOLOG *MILD* ALGORITHM WITH MEALS BEDTIME SC Last administered on 04/06/19 18:02; Admin Dose 1 UNIT; Start 03/23/19 at 18:00 IV Flush (NS 3 ml) 3 ml PER PROTOCOL IV ; Start 03/23/19 at 18:00 Ondansetron HCl (Zofran Inj) 4 mg Q6H PRN IV NAUSEA/VOMITING Last administered on 04/06/19 12:46; Admin Dose 4 MG; Start 03/23/19 at 18:00 Acetaminophen (Tylenol Tab) 650 mg Q6H PRN PO .PAIN 1-3 OR TEMP Last administered on 03/29/19 23:39; Admin Dose 650 MG; Start 03/23/19 at 18:00 Acetaminophen/ Hydrocodone Bitart ([place] (5/325)) 1 tab Q6H PRN PO .MOD PAIN 4- 6 Last administered on 04/05/19 22:36; Admin Dose 1 TAB; Start 03/23/19 at 18:00 Polyethylene Glycol (Miralax) 17 gm BID PO Last administered on 04/06/19 08:26; Admin Dose 17 GM; Start 03/23/19 at 21:00 Miscellaneous Information 1 ea NOTE XX ; Start 03/23/19 at 18:00 Glucose (Glutose) 15 gm Q15M PRN PO DECREASED GLUCOSE; Start 03/23/19 at 18:00 Glucose (Glutose) 22.5 gm Q15M PRN PO DECREASED GLUCOSE; Start 03/23/19 at 18:00 Dextrose (D50w Syringe) 25 ml Q15M PRN IV DECREASED GLUCOSE; Start 03/23/19 at 18:00 Dextrose (D50w Syringe) 50 ml Q15M PRN IV DECREASED GLUCOSE; Start 03/23/19 at 18:00 Glucagon (Glucagen) 1 mg Q15M PRN IM DECREASED GLUCOSE; Start 03/23/19 at 18:00 Glucose (Glutose) 15 gm Q15M PRN BUCCAL DECREASED GLUCOSE; Start 03/23/19 at 18:00 Hydralazine HCl (Apresoline) 10 mg Q4H PRN IV FOR SBP>170; Start 03/26/19 at 03:30 Albuterol/ Ipratropium (Duoneb) 3 ml Q2H RESP THERAPY PRN HHN sob; Start 03/26/19 at 12:30 Allopurinol (Zyloprim) 300 mg DAILY PO Last administered on 04/07/19 09:13; Admin Dose 300 MG; Start 03/29/19 at 15:30 Furosemide (Lasix) 20 mg DAILY PO Last administered on 04/07/19 09:14; Admin Dose 20 MG; Start 04/02/19 at 09:00 Insulin Aspart (Novolog Insulin Pen) 5 unit WITH MEALS SC Last administered on 04/07/19 09:15; Admin Dose 5 UNIT; Start 04/02/19 at 11:40 Fluconazole (Diflucan) 100 mg DAILY PO Last administered on 04/07/19 09:13; Admin Dose 100 MG; Start 04/02/19 at 15:30 Acyclovir (Zovirax) 400 mg DAILY PO Last administered on 04/07/19 09:13; Admin Dose 400 MG; Start 04/03/19 at 09:00 Levofloxacin (Levaquin) 500 mg DAILY@06 PO Last administered on 6/30/19at 05:47; Admin Dose 500 MG; Start 04/03/19 at 06:00 Doxycycline Hyclate (Vibramycin) 100 mg BID PO Last administered on 04/07/19 09:51; Admin Dose 100 MG; Start 04/02/19 at 21:00 Famotidine (Pepcid) 20 mg BID PO Last administered on 04/07/19 09:13; Admin Dose 20 MG; Start 04/02/19 at 21:00 Al Hydrox/Mg Hydrox/Simethicone (Mag-Al Plus) 30 ml Q6H PRN PO GASTROINTESTINAL UPSET; Start 04/02/19 at 18:30 Carvedilol (Coreg) 12.5 mg BID PO Last administered on 04/07/19 09:14; Admin Dose 12.5 MG; Start 04/02/19 at 21:00 Dexamethasone (Maxidex 0.1% Oph) 2 drop BID BOTH EYES Last administered on 04/07/19 09:14; Admin Dose 2 DROP; Start 04/03/19 at 21:00 Insulin Glargine (Lantus) 20 units DAILY@2000 SC Last administered on 04/06/19 20:20; Admin Dose 20 UNITS; Start 04/05/19 at 20:00 Lisinopril (Zestril) 20 mg BID PO Last administered on 04/07/19 09:51; Admin D ose 20 MG; Start 04/05/19 at 21:00 GRACIELA CARLIN Apr 07, 2019 12:06
[2019-04-07 15:06] VITALS: BP 129/70; PULSE 83; RESP 18
[2019-04-07 19:33] VITALS: BP 140/78; PULSE 81; RESP 17
[2019-04-07] MEDS: INSULIN GLARGINE [LANTus] (100 UNITS/ML) SYG SC SCH (20:49)
--- NOTE | 2019-04-08 00:24 | PN ---
DATE: 04/07/2019 SUBJECTIVE: The patient states he is feeling weaker. Did get up to go to the bathroom last night an d had trouble getting off the toilet and had to sit on the floor. Did not actually fall or strike hi s head. The patient has had some mild diarrhea, but no melena or hematochezia. No complaints of mouth pain. He has had no fevers or chills. OBJECTIVE: GENERAL: The patient is a well-developed, well-nourished male in no acute distress. VITAL SIGNS: Temperature 99.6 orally, pulse 81 per minute and regular, respirations 17, blood pressu re 140/78, pulse oximetry 96% on room air. SKIN: Pale and scattered ecchymosis. No petechiae or rashes. HEENT: Normocephalic. No evidence of trauma. Pupils equal, round, reactive to light and accommodat ion. Sclerae nonicteric. Oral mucosa is moist without lesions. Tongue is well papillated. No ging ival hyperplasia, no hypertrophy of [place]yer ring. NECK: Supple. No jugular venous distention or thyroid enlargement. No carotid bruits. CHEST: Clear to auscultation and percussion. No rhonchi, wheezes, rales or rubs. There is a [place] n catheter tunneled subcutaneously in the upper chest on the right. There is no evidence of any infl ammation around the tunneled portion or the insertion site. HEART: Regular sinus rhythm. No S3, S4 or murmurs. No rubs. BREASTS: No gynecomastia. ABDOMEN: Soft. No masses, no ascites. Bowel sounds are active. EXTREMITIES: Good range of motion. No clubbing, no edema or cyanosis. No palpable cords or Homans sign. NEUROLOGIC: Normal. LABORATORY DATA: White count is 700 with an absolute neutrophil count of 100, hemoglobin is 7.9, hem atocrit 22.7 and platelet count is 14,000. Chemistries include a sodium 135, potassium 4.2, creatini ne 0.52, BUN 9. Uric acid 1.9, total bilirubin 0.7, direct bilirubin 0, AST 16, ALT 54, alkaline phos phatase 87. ASSESSMENT: 1. Acute myelogenous leukemia, undergoing induction therapy, today is day #8 after start of chemothe rapy. Continuous infusion of cytosine arabinoside is completed. 2. Pancytopenia secondary to #1. DISCUSSION: The patient has been cautioned not to get up without assistance. I have told the patient it is likely he will require platelet transfusions within the next day and al so red blood cell transfusions within the next several days. We will continue to monitor at this time. No other treatment indicated. Dictated By: ERIN COLLADO MD SR/NTS Conf#: [id number] DID#: [id number] CC: KURTIS WHITTAKER MD;*EndCC*
[2019-04-08 02:01] VITALS: BP 141/79; PULSE 80; RESP 18
[2019-04-08] MEDS: ACETAMINOPHEN 325 MG TAB PO PRN ×2 (02:20→11:28)
[2019-04-08] MEDS: LEVOFLOXACIN 500 MG TAB PO SCH (05:29)
--- NOTE | 2019-04-08 07:27 | PN ---
Date/Time of Note Date/Time of Note DATE: 04/08/19 TIME: 07:27 Assessment/Plan VTE Prophylaxis Risk score (from Ns)>0 risk: 4 SCD applied (from Ns): Yes Pharmacological prophylaxis: NA/contraindicated Pharm contraindication: thrombocytopenia Lines/Catheters IV [facility]ter Type [facility]from [facility] [place] line still needed: Yes Urinary Cath still in place: No Assessment/Plan Hospital Course SUBJECTIVE: Denies any pain or dyspnea. Had a low grade fever in the morning. OBJECTIVE: Physical Exam General: Adequately build 54 year-old male lying in bed in no apparent distress. HEENT: Normocephalic, atraumatic. Eyes: Anicteric sclerae, conjunctivae clear. ENT: Nasal septum midline, oral mucosa moist. Neck supple, no JVD noticed. Respiratory: Bilaterally clear breath sounds. No use of accessory muscles of respiration. No adventitious breath sounds. Cardiovascular: S1, S2 heard. Regular rate and rhythm. Abdomen: Soft, nontender, and nondistended. Bowel sounds positive in all 4 quadrants. Genitourinary: Deferred. Extremities: No cyanosis, no clubbing, no edema. Peripheral pulses palpable. Neurologic: Cranial nerves II through XII grossly intact. The patient is awake, alert, and oriented. Skin: Normal skin turgor. No skin rashes. Labs & Vitals per chart ASSESSMENT & PLAN 54-year-old male with comorbidities including hypertension and diabetes mellitus who presented to the emergency room on 03/22/2019 with febrile illness and was discharged home on oral antibiotics, who was called back on 03/23/2019 as per the instruction of the pathologist for increased blast cells on CBC drawn on . 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 2. Neutropenic fevers. On antimicrobials as per ID. Reyes cultures remain negative. 3. Diabetes mellitus type 2. Hemoglobin A1c 9.6. Continue the patient on sliding scale insulin along with pre-meal insulin and basal insulin. 4. Hypertension. Continue antihypertensives. 5. Cardiomyopathy. EF of 35-40%. Continue BBs and ACEIs. Cardiology following. 6. Acute CHF exacerbation, systolic dysfunction. Continue diuretic therapy. Switched to oral diuretic therapy. 7. Fluids, electrolytes, and nutrition. Carbohydrate controlled, neutropenic diet. 8. DVT prophylaxis. Bilateral SCDs. 9. Plan. Continue to monitor for any secondary infection. Discharge the patient home once his pancytopenia is improved. Transfusion of blood products will be deferred to oncology. The patient was seen in collaboration with Dr. Abreu. Result Diagram: 04/08/195 04/08/19424 Results 24hrs Laboratory Tests Test 04/07/19 08:42 04/07/19 12:40 04/07/19 13:06 04/07/19 17:31 Bedside Glucose 97 196 215 White Blood Count 0.7 L Red Blood Count 2.51 L Hemoglobin 7.9 L Hematocrit 22.7 L Mean Corpuscular 90.4 Volume Mean Corpuscular 31.5 Hemoglobin Mean Corpuscular 34.8 Hemoglobin Concent Red Cell 13.1 Distribution Width Platelet Count 14 #*L Mean Platelet Volume 9.7 Immature 0.000 L Granulocytes % Neutrophils % 13.9 L Lymphocytes % 84.6 H Monocytes % 1.5 Eosinophils % 0.0 Basophils % 0.0 Nucleated Red Blood 0.0 Cells % Immature 0.000 Granulocytes # Neutrophils # 0.1 L Lymphocytes # 0.6 L Monocytes # 0.0 L Eosinophils # 0.0 Basophils # 0.0 Nucleated Red Blood 0.0 Cells # Test 04/07/19 20:44 04/08/19 02:19 04/08/19 04:25 Bedside Glucose 220 123 White Blood Count 0.5 #L Red Blood Count 2.46 L Hemoglobin 7.7 L Hematocrit 21.8 L Mean Corpuscular 88.6 Volume Mean Corpuscular 31.3 Hemoglobin Mean Corpuscular 35.3 Hemoglobin Concent Red Cell 12.7 Distribution Width Platelet Count 11 #*L Mean Platelet Volume 10.7 H Immature 2.000 H Granulocytes % Neutrophils % Lymphocytes % Monocytes % Eosinophils % Basophils % Nucleated Red Blood 0.0 Cells % Immature 0.010 Granulocytes # Neutrophils # Lymphocytes # Monocytes # Eosinophils # Basophils # Nucleated Red Blood Cells # Sodium Level 134 L Potassium Level 4.1 Chloride Level 99 Carbon Dioxide Level 25 Anion Gap 10 Blood Urea Nitrogen 11 Creatinine 0.53 L Est Glomerular > 60 Filtrat Rate mL/min Glucose Level 97 Uric Acid 1.9 L Calcium Level 8.4 Phosphorus Level 4.3 Magnesium Level 2.0 Total Bilirubin 0.7 Direct Bilirubin 0.00 Indirect Bilirubin 0.7 Aspartate Amino 13 L Transf (AST/SGOT) Alanine 41 Aminotransferase (AL T/SGPT) Alkaline Phosphatase 71 Lactate 287 L Dehydrogenase Total Protein 6.4 Albumin 3.3 Globulin 3.10 Albumin/Globulin 1.06 Ratio Exam/Review of Systems Exam Vitals Vital Signs Date Temp Pulse Resp B/P (MAP) Pulse Ox O2 O2 Flow FiO2 Time Delivery Rate 04/08/19 98.3 03:05 04/08/19 80 18 141/79 98 Room Air 02:01 (99) Intake and Output 04/07/19 04/07/19 04/08/19 1515:00 23:00 07:00 IntakeIntake Total 1840 ml OutputOutput Total 420 ml BalanceBalance 1420 ml Results Results 24hrs Laboratory Tests Test 04/07/19 08:42 04/07/19 12:40 04/07/19 13:06 04/07/19 17:31 Bedside Glucose 97 196 215 White Blood Count 0.7 L Red Blood Count 2.51 L Hemoglobin 7.9 L Hematocrit 22.7 L Mean Corpuscular 90.4 Volume Mean Corpuscular 31.5 Hemoglobin Mean Corpuscular 34.8 Hemoglobin Concent Red Cell 13.1 Distribution Width Platelet Count 14 #*L Mean Platelet Volume 9.7 Immature 0.000 L Granulocytes % Neutrophils % 13.9 L Lymphocytes % 84.6 H Monocytes % 1.5 Eosinophils % 0.0 Basophils % 0.0 Nucleated Red Blood 0.0 Cells % Immature 0.000 Granulocytes # Neutrophils # 0.1 L Lymphocytes # 0.6 L Monocytes # 0.0 L Eosinophils # 0.0 Basophils # 0.0 Nucleated Red Blood 0.0 Cells # Test 04/07/19 20:44 04/08/19 02:19 04/08/19 04:25 Bedside Glucose 220 123 White Blood Count 0.5 #L Red Blood Count 2.46 L Hemoglobin 7.7 L Hematocrit 21.8 L Mean Corpuscular 88.6 Volume Mean Corpuscular 31.3 Hemoglobin Mean Corpuscular 35.3 Hemoglobin Concent Red Cell 12.7 Distribution Width Platelet Count 11 #*L Mean Platelet Volume 10.7 H Immature 2.000 H Granulocytes % Neutrophils % Lymphocytes % Monocytes % Eosinophils % Basophils % Nucleated Red Blood 0.0 Cells % Immature 0.010 Granulocytes # Neutrophils # Lymphocytes # Monocytes # Eosinophils # Basophils # Nucleated Red Blood Cells # Sodium Level 134 L Potassium Level 4.1 Chloride Level 99 Carbon Dioxide Level 25 Anion Gap 10 Blood Urea Nitrogen 11 Creatinine 0.53 L Est Glomerular > 60 Filtrat Rate mL/min Glucose Level 97 Uric Acid 1.9 L Calcium Level 8.4 Phosphorus Level 4.3 Magnesium Level 2.0 Total Bilirubin 0.7 Direct Bilirubin 0.00 Indirect Bilirubin 0.7 Aspartate Amino 13 L Transf (AST/SGOT) Alanine 41 Aminotransferase (AL T/SGPT) Alkaline Phosphatase 71 Lactate 287 L Dehydrogenase Total Protein 6.4 Albumin 3.3 Globulin 3.10 Albumin/Globulin 1.06 Ratio Medications Medication Current Medications Insulin Aspart (Novolog Insulin Pen) NOVOLOG *MILD* ALGORITHM WITH MEALS BEDTIME SC Last administered on 04/07/19 20:51; Admin Dose 1 UNIT; Start 03/23/19 at 18:00 IV Flush (NS 3 ml) 3 ml PER PROTOCOL IV Last administered on 04/08/19 05:29; Admin Dose 3 ML; Start 03/23/19 at 18:00 Ondansetron HCl (Zofran Inj) 4 mg Q6H PRN IV NAUSEA/VOMITING Last administered on 04/06/19 12:46; Admin Dose 4 MG; Start 03/23/19 at 18:00 Acetaminophen (Tylenol Tab) 650 mg Q6H PRN PO .PAIN 1-3 OR TEMP Last administered on 04/08/19 02:20; Admin Dose 650 MG; Start 03/23/19 at 18:00 Acetaminophen/ Hydrocodone Bitart ([place] (5/325)) 1 tab Q6H PRN PO .MOD PAIN 4- 6 Last administered on 04/05/19 22:36; Admin Dose 1 TAB; Start 03/23/19 at 18:00 Polyethylene Glycol (Miralax) 17 gm BID PO Last administered on 04/06/19 08:26; Admin Dose 17 GM; Start 03/23/19 at 21:00 Miscellaneous Information 1 ea NOTE XX ; Start 03/23/19 at 18:00 Glucose (Glutose) 15 gm Q15M PRN PO DECREASED GLUCOSE; Start 03/23/19 at 18:00 Glucose (Glutose) 22.5 gm Q15M PRN PO DECREASED GLUCOSE; Start 03/23/19 at 18:00 Dextrose (D50w Syringe) 25 ml Q15M PRN IV DECREASED GLUCOSE; Start 03/23/19 at 18:00 Dextrose (D50w Syringe) 50 ml Q15M PRN IV DECREASED GLUCOSE; Start 03/23/19 at 18:00 Glucagon (Glucagen) 1 mg Q15M PRN IM DECREASED GLUCOSE; Start 03/23/19 at 18:00 Glucose (Glutose) 15 gm Q15M PRN BUCCAL DECREASED GLUCOSE; Start 03/23/19 at 18:00 Hydralazine HCl (Apresoline) 10 mg Q4H PRN IV FOR SBP>170; Start 03/26/19 at 03:30 Albuterol/ Ipratropium (Duoneb) 3 ml Q2H RESP THERAPY PRN HHN sob; Start 03/26 at 12:30 Allopurinol (Zyloprim) 300 mg DAILY PO Last administered on 04/07/19 09:13; Admin Dose 300 MG; Start 03/29/19 at 15:30 Furosemide (Lasix) 20 mg DAILY PO Last administered on 04/07/19 09:14; Admin Dose 20 MG; Start 04/02/19 at 09:00 Insulin Aspart (Novolog Insulin Pen) 5 unit WITH MEALS SC Last administered on 04/07/19 18:17; Admin Dose 5 UNIT; Start 04/02/19 at 11:40 Fluconazole (Diflucan) 100 mg DAILY PO Last administered on 04/07/19 09:13; Admin Dose 100 MG; Start 04/02/19 at 15:30 Acyclovir (Zovirax) 400 mg DAILY PO Last administered on 04/07/19 09:13; Admin Dose 400 MG; Start 04/03/19 at 09:00 Levofloxacin (Levaquin) 500 mg DAILY@06 PO Last administered on 04/08/19 05:29; Admin Dose 500 MG; Start 04/03/19 at 06:00 Doxycycline Hyclate (Vibramycin) 100 mg BID PO Last administered on 04/07/19 20:46; Admin Dose 100 MG; Start 04/02/19 at 21:00 Famotidine (Pepcid) 20 mg BID PO Last administered on 04/07/19 20:46; Admin Dose 20 MG; Start 04/02/19 at 21:00 Al Hydrox/Mg Hydrox/Simethicone (Mag-Al Plus) 30 ml Q6H PRN PO GASTROINTESTINAL UPSET; Start 04/02/19 at 18:30 Carvedilol (Coreg) 12.5 mg BID PO Last administered on 04/07/19 20:46; Admin Dose 12.5 MG; Start 04/02/19 at 21:00 Dexamethasone (Maxidex 0.1% Oph) 2 drop BID BOTH EYES Last administered on 04/07/19 20:47; Admin Dose 2 DROP; Start 04/03/19 at 21:00 Insulin Glargine (Lantus) 20 units DAILY@2000 SC Last administered on 04/07/19 20:49; Admin Dose 20 UNITS; Start 04/05/19 at 20:00 Lisinopril (Zestril) 20 mg BID PO Last administered on 04/07/19 20:46; Admin Dose 20 MG; Start 04/05/19 at 21:00 KATIE PACE NP Apr 08, 2019 07:27
[2019-04-08 07:37] VITALS: BP 138/77; PULSE 80; RESP 18
[2019-04-08] MEDS: INSULIN ASPART [NOVOLOG] 3 ML PEN SC SCH ×7 (07:50→20:18)
[2019-04-08] MEDS: ACYCLOVIR 400 MG TAB PO SCH (08:39)
[2019-04-08] MEDS: FAMOTIDINE 20 MG TAB PO SCH ×2 (08:39→20:20)
[2019-04-08] MEDS: DOXYCYCLINE 100 MG TAB PO SCH ×2 (08:39→20:19)
[2019-04-08] MEDS: ALLOPURINOL 300 MG TAB PO SCH (08:39)
[2019-04-08] MEDS: FLUCONAZOLE 100 MG TAB PO SCH (08:40)
[2019-04-08] MEDS: DEXAMETHASONE 0.1% 5 ML OPH BOTH EYES SCH ×2 (08:40→20:21)
[2019-04-08] MEDS: LISINOPRIL 20 MG TAB PO SCH ×2 (08:40→20:19)
[2019-04-08] MEDS: FUROSEMIDE 20 MG TAB PO SCH (08:41)
[2019-04-08] MEDS: POLYETHYLENE GLYCOL 17 GM PACKET PO SCH ×2 (08:43→20:29)
[2019-04-08 14:00] VITALS: BP 130/78; PULSE 82; RESP 18
--- NOTE | 2019-04-08 14:27 | CONS ---
Assessment/Plan Assessment/Plan Hospital Course (Demo Recall) Patient is alert and looks comfortable denies pain had a low-grade fever last night currently afebrile Indwelling's: Right IJ Port-A-Cath Blood cultures and urine culture negative Antimicrobials: Doxycycline, levofloxacin, fluconazole, acyclovir Physical examination: Well-developed middle-aged man who is alert in no distress head atraumatic normocephalic sclera nonicteric vehicle mucosa pink neck is supple chest rise symmetrical breath sounds clear Heart S1-S2 abdomen soft bowel sounds present extremities without cyanosis edema Assessment: 1. S/p neutropenia 2. AML, newly diagnosed 3. Diabetes 4. Hypertension 5. Pancytopenia Plan: Stable, continue prophylactic antimicrobials, management per oncology Consultation Date/Type/Reason Admit Date/Time Mar 23, 2019 at 16:10 Initial Consult Date 03/24/19 Type of Consult id Requesting Provider: KATIE PACE NP Date/Time of Note DATE: 04/08/19 TIME: 14:26 Exam/Review of Systems Exam Vitals Vital Signs Date Temp Pulse Resp B/P (MAP) Pulse Ox O2 O2 Flow FiO2 Time Delivery Rate 04/08/19 99.3 12:20 04/08/19 80 18 138/77 98 Room Air 07:37 (97) Intake and Output 04/07/19 04/07/19 04/08/19 1515:00 23:00 07:00 IntakeIntake Total 1840 ml OutputOutput Total 420 ml BalanceBalance 1420 ml Results Result Diagram: 04/08/19 0425 04/08/19 0425 Results 24hrs Laboratory Tests Test 04/07/19 17:31 04/07/19 20:44 04/08/19 02:19 04/08/19 04:25 Bedside Glucose 215 220 123 White Blood Count 0.5 #L Red Blood Count 2.46 L Hemoglobin 7.7 L Hematocrit 21.8 L Mean Corpuscular 88.6 Volume Mean Corpuscular 31.3 Hemoglobin Mean Corpuscular 35.3 Hemoglobin Concent Red Cell 12.7 Distribution Width Platelet Count 11 #*L Mean Platelet 10.7 H Volume Immature 2.000 H Granulocytes % Neutrophils % Segmented 2 L Neutrophils % (Manual) Band Neutrophils % 1 (Manual) Lymphocytes % Lymphocytes % 97 H (Manual) Monocytes % Eosinophils % Basophils % Nucleated Red Blood 0.0 Cells % Immature 0.010 Granulocytes # Neutrophils # Neutrophils # 0.0 L (Manual) Band Neutrophils # 0.0 Lymphocytes 0.4 L (Manual) Lymphocytes # Monocytes # Eosinophils # Basophils # Nucleated Red Blood Cells # Platelet Estimate SIG DECREASED Ovalocytes 1+ Sodium Level 134 L Potassium Level 4.1 Chloride Level 99 Carbon Dioxide 25 Level Anion Gap 10 Blood Urea Nitrogen 11 Creatinine 0.53 L Est Glomerular > 60 Filtrat Rate mL/min Glucose Level 97 Uric Acid 1.9 L Calcium Level 8.4 Phosphorus Level 4.3 Magnesium Level 2.0 Total Bilirubin 0.7 Direct Bilirubin 0.00 Indirect Bilirubin 0.7 Aspartate Amino 13 L Transf (AST/SGOT) Alanine 41 Aminotransferase (A LT/SGPT) Alkaline 71 Phosphatase Lactate 287 L Dehydrogenase Total Protein 6.4 Albumin 3.3 Globulin 3.10 Albumin/Globulin 1.06 Ratio Test 04/08/19 08:20 04/08/19 12:45 Bedside Glucose 95 205 Medications Medication Current Medications Insulin Aspart (Novolog Insulin Pen) NOVOLOG *MILD* ALGORITHM WITH MEALS BEDTIME SC Last administered on 04/08/19 12:50; Admin Dose 2 UNIT; Start 03/23/19 at 18:00 IV Flush (NS 3 ml) 3 ml PER PROTOCOL IV Last administered on 04/08/19 05:29; Admin Dose 3 ML; Start 03/23/19 at 18:00 Ondansetron HCl (Zofran Inj) 4 mg Q6H PRN IV NAUSEA/VOMITING Last administered on 04/06/19 12:46; Admin Dose 4 MG; Start 03/23/19 at 18:00 Acetaminophen (Tylenol Tab) 650 mg Q6H PRN PO .PAIN 1-3 OR TEMP Last administered on 04/08/19 11:28; Admin Dose 650 MG; Start 03/23/19 at 18:00 Acetaminophen/ Hydrocodone Bitart ([place] (5/325)) 1 tab Q6H PRN PO .MOD PAIN 4- 6 Last administered on 04/05/19 22:36; Admin Dose 1 TAB; Start 03/23/19 at 18:00 Polyethylene Glycol (Miralax) 17 gm BID PO Last administered on 04/06/19 08:26; Admin Dose 17 GM; Start 03/23/19 at 21:00 Miscellaneous Information 1 ea NOTE XX ; Start 03/23/19 at 18:00 Glucose (Glutose) 15 gm Q15M PRN PO DECREASED GLUCOSE; Start 03/23/19 at 18:00 Glucose (Glutose) 22.5 gm Q15M PRN PO DECREASED GLUCOSE; Start 03/23/19 at 18:00 Dextrose (D50w Syringe) 25 ml Q15M PRN IV DECREASED GLUCOSE; Start 03/23/19 at 18:00 Dextrose (D50w Syringe) 50 ml Q15M PRN IV DECREASED GLUCOSE; Start 03/23/19 at 18:00 Glucagon (Glucagen) 1 mg Q15M PRN IM DECREASED GLUCOSE; Start 03/23/19 at 18:00 Glucose (Glutose) 15 gm Q15M PRN BUCCAL DECREASED GLUCOSE; Start 03/23/19 at 18:00 Hydralazine HCl (Apresoline) 10 mg Q4H PRN IV FOR SBP>170; Start 03/26/19 at 03:30 Albuterol/ Ipratropium (Duoneb) 3 ml Q2H RESP THERAPY PRN HHN sob; Start 03/26/19 at 12:30 Allopurinol (Zyloprim) 300 mg DAILY PO Last administered on 04/08/19 08:39; Admin Dose 300 MG; Start 03/29/19 at 15:30 Furosemide (Lasix) 20 mg DAILY PO Last administered on 04/08/19at 08:41; Admin Dose 20 MG; Start 04/02/19 at 09:00 Insulin Aspart (Novolog Insulin Pen) 5 unit WITH MEALS SC Last administered on 04/08/19at 12:50; Admin Dose 5 UNIT; Start 04/02/19 at 11:40 Fluconazole (Diflucan) 100 mg DAILY PO Last administered on 04/08/19at 08:40; Admin Dose 100 MG; Start 04/02/19 at 15:30 Acyclovir (Zovirax) 400 mg DAILY PO Last administered on 04/08/19 08:39; Admin Dose 400 MG; Start 04/03/19 at 09:00 Levofloxacin (Levaquin) 500 mg DAILY@06 PO Last administered on 04/08/19at 05:29; Admin Dose 500 MG; Start 04/03/19 at 06:00 Doxycycline Hyclate (Vibramycin) 100 mg BID PO Last administered on 04/08/19at 08:39; Admin Dose 100 MG; Start 04/02/19 at 21:00 Famotidine (Pepcid) 20 mg BID PO Last administered on 04/08/19 08:39; Admin Dose 20 MG; Start 04/02/19 at 21:00 Al Hydrox/Mg Hydrox/Simethicone (Mag-Al Plus) 30 ml Q6H PRN PO GASTROINTESTINAL UPSET; Start 04/02/19 at 18:30 Carvedilol (Coreg) 12.5 mg BID PO Last administered on 04/08/19at 08:41; Admin Dose 12.5 MG; Start 04/02/19 at 21:00 Dexamethasone (Maxidex 0.1% Oph) 2 drop BID BOTH EYES Last administered on 04/08/19 08:40; Admin Dose 2 DROP; Start 04/03/19 at 21:00 Insulin Glargine (Lantus) 20 units DAILY@2000 SC Last administered on 04/07/19at 20:49; Admin Dose 20 UNITS; Start 04/05/19 at 20:00 Lisinopril (Zestril) 20 mg BID PO Last administered on 04/08/19 08:40; Admin Dose 20 MG; Start 04/05/19 at 21:00 JEANNIE NICHOLSON NP Apr 08, 2019 14:27
--- NOTE | 2019-04-08 18:24 | PN ---
Date/Time of Note Date/Time of Note DATE: 04/08/19 TIME: 18:18 Assessment/Plan VTE Prophylaxis Risk score (from Ns)>0 risk: 6 SCD applied (from [facility] [place] Yes Pharmacological prophylaxis: other Pharm contraindication: thrombocytopenia Lines/Catheters IV C[facility]ter Type (from [facility]): [place] line still needed: Yes Urinary Cath still in place: No Assessment/Plan Assessment/Plan Pt has a low grade fever and severe neutropenia, as expected. Pt, his and I discussed that he will be in the hospital for two or three weeks even if all goes well. He will need transfusion support and antibiotics over this interval until the pancytopenia resolves. Note that today is day 10 of the induction program. Recheck CBC in the morning. Result Diagram: 04/08/195 04/08/19424 Results 24hrs Laboratory Tests Test 04/07/19 20:44 04/08/19 02:19 04/08/19 04:25 04/08/19 08:20 Bedside Glucose 220 123 95 White Blood Count 0.5 #L Red Blood Count 2.46 L Hemoglobin 7.7 L Hematocrit 21.8 L Mean Corpuscular 88.6 Volume Mean Corpuscular 31.3 Hemoglobin Mean Corpuscular 35.3 Hemoglobin Concent Red Cell 12.7 Distribution Width Platelet Count 11 #*L Mean Platelet Volume 10.7 H Immature 2.000 H Granulocytes % Neutrophils % Segmented 2 L Neutrophils % (Manual) Band Neutrophils % 1 (Manual) Lymphocytes % Lymphocytes % 97 H (Manual) Monocytes % Eosinophils % Basophils % Nucleated Red Blood 0.0 Cells % Immature 0.010 Granulocytes # Neutrophils # Neutrophils # 0.0 L (Manual) Band Neutrophils # 0.0 Lymphocytes (Manual) 0.4 L Lymphocytes # Monocytes # Eosinophils # Basophils # Nucleated Red Blood Cells # Platelet Estimate SIG DECREASED Ovalocytes 1+ Sodium Level 134 L Potassium Level 4.1 Chloride Level 99 Carbon Dioxide Level 25 Anion Gap 10 Blood Urea Nitrogen 11 Creatinine 0.53 L Est Glomerular > 60 Filtrat Rate mL/min Glucose Level 97 Uric Acid 1.9 L Calcium Level 8.4 Phosphorus Level 4.3 Magnesium Level 2.0 Total Bilirubin 0.7 Direct Bilirubin 0.00 Indirect Bilirubin 0.7 Aspartate Amino 13 L Transf (AST/SGOT) Alanine 41 Aminotransferase (AL T/SGPT) Alkaline Phosphatase 71 Lactate 287 L Dehydrogenase Total Protein 6.4 Albumin 3.3 Globulin 3.10 Albumin/Globulin 1.06 Ratio Test 04/08/19 12:45 04/08/19 17:56 Bedside Glucose 205 153 Subjective 24 Hr Interval Summary Free Text/Dictation Pt is eating dinner and is comfortable. Nurse says that both RBC and platelets have been given this afternoon. Exam/Review of Systems Exam Vitals Vital Signs Date Temp Pulse Resp B/P (MAP) Pulse Ox O2 O2 Flow FiO2 Time Delivery Rate 04/08/19 99.3 12:20 04/08/19 80 18 138/77 98 Room Air 07:37 (97) Intake and Output 04/07/19 04/07/19 04/08/19 1515:00 23:00 07:00 IntakeIntake Total 1840 ml OutputOutput Total 420 ml BalanceBalance 1420 ml Constitutional: alert, oriented Head: normocephalic Eyes: other (conjunctival pallor) ENMT: nl external ears & nose Neck: supple Respiratory: clear to auscultation Cardiovascular: regular rate and rhythm Gastrointestinal: soft, nl liver, spleen, non-tender Lymph: nl lymph nodes Results Results 24hrs Laboratory Tests Test 04/07/19 20:44 04/08/19 02:19 04/08/19 04:25 04/08/19 08:20 Bedside Glucose 220 123 95 White Blood Count 0.5 #L Red Blood Count 2.46 L Hemoglobin 7.7 L Hematocrit 21.8 L Mean Corpuscular 88.6 Volume Mean Corpuscular 31.3 Hemoglobin Mean Corpuscular 35.3 Hemoglobin Concent Red Cell 12.7 Distribution Width Platelet Count 11 #*L Mean Platelet Volume 10.7 H Immature 2.000 H Granulocytes % Neutrophils % Segmented 2 L Neutrophils % (Manual) Band Neutrophils % 1 (Manual) Lymphocytes % Lymphocytes % 97 H (Manual) Monocytes % Eosinophils % Basophils % Nucleated Red Blood 0.0 Cells % Immature 0.010 Granulocytes # Neutrophils # Neutrophils # 0.0 L (Manual) Band Neutrophils # 0.0 Lymphocytes (Manual) 0.4 L Lymphocytes # Monocytes # Eosinophils # Basophils # Nucleated Red Blood Cells # Platelet Estimate SIG DECREASED Ovalocytes 1+ Sodium Level 134 L Potassium Level 4.1 Chloride Level 99 Carbon Dioxide Level 25 Anion Gap 10 Blood Urea Nitrogen 11 Creatinine 0.53 L Est Glomerular > 60 Filtrat Rate mL/min Glucose Level 97 Uric Acid 1.9 L Calcium Level 8.4 Phosphorus Level 4.3 Magnesium Level 2.0 Total Bilirubin 0.7 Direct Bilirubin 0.00 Indirect Bilirubin 0.7 Aspartate Amino 13 L Transf (AST/SGOT) Alanine 41 Aminotransferase (AL T/SGPT) Alkaline Phosphatase 71 Lactate 287 L Dehydrogenase Total Protein 6.4 Albumin 3.3 Globulin 3.10 Albumin/Globulin 1.06 Ratio Test 04/08/19 12:45 04/08/19 17:56 Bedside Glucose 205 153 Medications Medication Current Medications Insulin Aspart (Novolog Insulin Pen) NOVOLOG *MILD* ALGORITHM WITH MEALS BEDTIME SC Last administered on 04/08/19 18:02; Admin Dose 1 UNIT; Start 03/23/19 at 18:00 IV Flush (NS 3 ml) 3 ml PER PROTOCOL IV Last administered on 04/08/19 05:29; Admin Dose 3 ML; Start 03/23/19 at 18:00 Ondansetron HCl (Zofran Inj) 4 mg Q6H PRN IV NAUSEA/VOMITING Last administered on 04/06/19at 12:46; Admin Dose 4 MG; Start 03/23/19 at 18:00 Acetaminophen (Tylenol Tab) 650 mg Q6H PRN PO .PAIN 1-3 OR TEMP Last administered on 04/08/19 11:28; Admin Dose 650 MG; Start 03/23/19 at 18:00 Acetaminophen/ Hydrocodone Bitart ([place] (5/325)) 1 tab Q6H PRN PO .MOD PAIN 4- 6 Last administered on 04/05/19 22:36; Admin Dose 1 TAB; Start 03/23/19 at 18:00 Polyethylene Glycol (Miralax) 17 gm BID PO Last administered on 04/06/19 08:26; Admin Dose 17 GM; Start 03/23/19 at 21:00 Miscellaneous Information 1 ea NOTE XX ; Start 03/23/19 at 18:00 Glucose (Glutose) 15 gm Q15M PRN PO DECREASED GLUCOSE; Start 03/23/19 at 18:00 Glucose (Glutose) 22.5 gm Q15M PRN PO DECREASED GLUCOSE; Start 03/23/19 at 18:00 Dextrose (D50w Syringe) 25 ml Q15M PRN IV DECREASED GLUCOSE; Start 03/23/19 at 18:00 Dextrose (D50w Syringe) 50 ml Q15M PRN IV DECREASED GLUCOSE; Start 03/23/19 at 18:00 Glucagon (Glucagen) 1 mg Q15M PRN IM DECREASED GLUCOSE; Start 03/23/19 at 18:00 Glucose (Glutose) 15 gm Q15M PRN BUCCAL DECREASED GLUCOSE; Start 03/23/19 at 18:00 Hydralazine HCl (Apresoline) 10 mg Q4H PRN IV FOR SBP>170; Start 03/26/19 at 03:30 Albuterol/ Ipratropium (Duoneb) 3 ml Q2H RESP THERAPY PRN HHN sob; Start 03/26/19 at 12:30 Allopurinol (Zyloprim) 300 mg DAILY PO Last administered on 04/08/19 08:39; Admin Dose 300 MG; Start 03/29/19 at 15:30 Furosemide (Lasix) 20 mg DAILY PO Last administered on 04/08/19at 08:41; Admin Dose 20 MG; Start 04/02/19 at 09:00 Insulin Aspart (Novolog Insulin Pen) 5 unit WITH MEALS SC Last administered on 04/08/19at 18:03; Admin Dose 5 UNIT; Start 04/02/19 at 11:40 Fluconazole (Diflucan) 100 mg DAILY PO Last administered on 04/08/19 08:40; Admin Dose 100 MG; Start 04/02/19 at 15:30 Acyclovir (Zovirax) 400 mg DAILY PO Last administered on 04/08/19 08:39; Admin Dose 400 MG; Start 04/03/19 at 09:00 Levofloxacin (Levaquin) 500 mg DAILY@06 PO Last administered on 04/08/19 05:29; Admin Dose 500 MG; Start 04/03/19 at 06:00 Doxycycline Hyclate (Vibramycin) 100 mg BID PO Last administered on 04/08/19 08:39; Admin Dose 100 MG; Start 04/02/19 at 21:00 Famotidine (Pepcid) 20 mg BID PO Last administered on 04/08/19 08:39; Admin Dose 20 MG; Start 04/02/19 at 21:00 Al Hydrox/Mg Hydrox/Simethicone (Mag-Al Plus) 30 ml Q6H PRN PO GASTROINTESTINAL UPSET; Start 04/02/19 at 18:30 Carvedilol (Coreg) 12.5 mg BID PO Last administered on 04/08/19 08:41; Admin Dose 12.5 MG; Start 04/02/19 at 21:00 Dexamethasone (Maxidex 0.1% Oph) 2 drop BID BOTH EYES Last administered on 04/08/19 08:40; Admin Dose 2 DROP; Start 04/03/19 at 21:00 Insulin Glargine (Lantus) 20 units DAILY@2000 SC Last administered on 04/07/19 20:49; Admin Dose 20 UNITS; Start 04/05/19 at 20:00 Lisinopril (Zestril) 20 mg BID PO Last administered on 04/08/19 08:40; Admin Dose 20 MG; Start 04/05/19 at 21:00 BETTE MALDONADO MD Apr 08, 2019 18:24
[2019-04-08 20:06] VITALS: BP 143/79; PULSE 86; RESP 18
[2019-04-08] MEDS: INSULIN GLARGINE [LANTus] (100 UNITS/ML) SYG SC SCH (20:18)
[2019-04-09 02:05] VITALS: BP 146/83; PULSE 80; RESP 18
[2019-04-09] MEDS: LEVOFLOXACIN 500 MG TAB PO SCH (05:40)
[2019-04-09 07:19] VITALS: BP 132/78; PULSE 82; RESP 19
--- NOTE | 2019-04-09 07:32 | PN ---
Date/Time of Note Date/Time of Note DATE: 04/09/19 TIME: 07:32 Assessment/Plan VTE Prophylaxis Risk score (from Ns)>0 risk: 5 SCD applied (from Ns): Yes Pharmacological prophylaxis: NA/contraindicated Pharm contraindication: thrombocytopenia Lines/Catheters [facility]from [facility] [place] line still needed: Yes Urinary Cath still in place: No Assessment/Plan Hospital Course SUBJECTIVE: Denies any pain or dyspnea. OBJECTIVE: Physical Exam General: Adequately build 54 year-old male lying in bed in no apparent distress. HEENT: Normocephalic, atraumatic. Eyes: Anicteric sclerae, conjunctivae clear. ENT: Nasal septum midline, oral mucosa moist. Neck supple, no JVD noticed. Respiratory: Bilaterally clear breath sounds. No use of accessory muscles of respiration. No adventitious breath sounds. Cardiovascular: S1, S2 heard. Regular rate and rhythm. Abdomen: Soft, nontender, and nondistended. Bowel sounds positive in all 4 quadrants. Genitourinary: Deferred. Extremities: No cyanosis, no clubbing, no edema. Peripheral pulses palpable. Neurologic: Cranial nerves II through XII grossly intact. The patient is awake, alert, and oriented. Skin: Normal skin turgor. No skin rashes. Labs & Vitals per chart ASSESSMENT & PLAN 54-year-old male with comorbidities including hypertension and diabetes mellitus who presented to the emergency room on 03/22/2019 with febrile illness and was discharged home on oral antibiotics, who was called back on 03/23/2019 as per the instruction of the pathologist for increased blast cells on CBC drawn on 03/22/2019. 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 2. Neutropenic fevers. On antimicrobials as per ID. Reyes cultures remain negative. 3. Diabetes mellitus type 2. Hemoglobin A1c 9.6. Continue the patient on sliding scale insulin along with pre-meal insulin and basal insulin. 4. Hypertension. Continue antihypertensives. 5. Cardiomyopathy. EF of 35-40%. Continue BBs and ACEIs. Cardiology following. 6. Acute CHF exacerbation, systolic dysfunction. Continue diuretic therapy. Switched to oral diuretic therapy. 7. Fluids, electrolytes, and nutrition. Carbohydrate controlled, neutropenic diet. 8. DVT prophylaxis. Bilateral SCDs. 9. Plan. Continue to monitor for any secondary infection. Discharge the patient home once his pancytopenia is improved. Transfusion of blood products will be deferred to oncology. The patient was seen in collaboration with Dr. Abreu. Result Diagram: 04/09/19 0422 04/09/19 0423 Results 24hrs Laboratory Tests Test 04/08/19 08:20 04/08/19 12:45 04/08/19 17:56 04/08/19 20:14 Bedside Glucose 95 205 153 188 Test 04/09/19 01:35 04/09/19 04:22 04/09/19 04:23 Bedside Glucose 97 White Blood Count 0.4 L Red Blood Count 2.79 L Hemoglobin 8.8 L Hematocrit 24.2 L Mean Corpuscular 86.7 Volume Mean Corpuscular 31.5 Hemoglobin Mean Corpuscular 36.4 Hemoglobin Concent Red Cell Distribution 12.6 Width Platelet Count 40 #L Mean Platelet Volume 10.5 H Immature Granulocytes 0.000 L % Neutrophils % 7.9 L Segmented Neutrophils 2 L % (Manual) Lymphocytes % 92.1 H Lymphocytes % 97 H (Manual) Monocytes % 0.0 Monocytes % (Manual) 1 Eosinophils % 0.0 Basophils % 0.0 Nucleated Red Blood 0.0 Cells % Immature Granulocytes 0.000 # Neutrophils # 0.0 L Lymphocytes (Manual) 0.3 L Lymphocytes # 0.4 L Monocytes # 0.0 L Monocytes # (Manual) 0.0 L Eosinophils # 0.0 Basophils # 0.0 Nucleated Red Blood 0.0 Cells # Platelet Estimate SIG DECREASED Poikilocytosis 1+ Anisocytosis 1+ Phosphorus Level 4.3 Magnesium Level 2.0 Sodium Level 134 L Potassium Level 4.0 Chloride Level 100 Carbon Dioxide Level 24 Anion Gap 10 Blood Urea Nitrogen 11 Creatinine 0.51 L Est Glomerular > 60 Filtrat Rate mL/min Glucose Level 81 Uric Acid 1.6 L Calcium Level 8.2 L Total Bilirubin 0.8 Direct Bilirubin 0.00 Indirect Bilirubin 0.8 Aspartate Amino 12 L Transf (AST/SGOT) Alanine 32 Aminotransferase (ALT /SGPT) Alkaline Phosphatase 73 Lactate Dehydrogenase 321 Total Protein 6.8 Albumin 3.4 Globulin 3.40 H Albumin/Globulin 1.00 Ratio Exam/Review of Systems Exam Vitals Vital Signs Date Temp Pulse Resp B/P (MAP) Pulse Ox O2 O2 Flow FiO2 Time Delivery Rate 04/09/19 98.4 82 19 132/78 98 07:19 (96) 04/09/19 Room Air 02:05 Intake and Output 04/08/19 04/08/19 04/09/19 1515:00 23:00 07:00 IntakeIntake Total 560 ml 1290 ml BalanceBalance 560 ml 1290 ml Results Results 24hrs Laboratory Tests Test 04/08/19 08:20 04/08/19 12:45 04/08/19 17:56 04/08/19 20:14 Bedside Glucose 95 205 153 188 Test 04/09/19 01:35 04/09/19 04:22 04/09/19 04:23 Bedside Glucose 97 White Blood Count 0.4 L Red Blood Count 2.79 L Hemoglobin 8.8 L Hematocrit 24.2 L Mean Corpuscular 86.7 Volume Mean Corpuscular 31.5 Hemoglobin Mean Corpuscular 36.4 Hemoglobin Concent Red Cell Distribution 12.6 Width Platelet Count 40 #L Mean Platelet Volume 10.5 H Immature Granulocytes 0.000 L % Neutrophils % 7.9 L Segmented Neutrophils 2 L % (Manual) Lymphocytes % 92.1 H Lymphocytes % 97 H (Manual) Monocytes % 0.0 Monocytes % (Manual) 1 Eosinophils % 0.0 Basophils % 0.0 Nucleated Red Blood 0.0 Cells % Immature Granulocytes 0.000 # Neutrophils # 0.0 L Lymphocytes (Manual) 0.3 L Lymphocytes # 0.4 L Monocytes # 0.0 L Monocytes # (Manual) 0.0 L Eosinophils # 0.0 Basophils # 0.0 Nucleated Red Blood 0.0 Cells # Platelet Estimate SIG DECREASED Poikilocytosis 1+ Anisocytosis 1+ Phosphorus Level 4.3 Magnesium Level 2.0 Sodium Level 134 L Potassium Level 4.0 Chloride Level 100 Carbon Dioxide Level 24 Anion Gap 10 Blood Urea Nitrogen 11 Creatinine 0.51 L Est Glomerular > 60 Filtrat Rate mL/min Glucose Level 81 Uric Acid 1.6 L Calcium Level 8.2 L Total Bilirubin 0.8 Direct Bilirubin 0.00 Indirect Bilirubin 0.8 Aspartate Amino 12 L Transf (AST/SGOT) Alanine 32 Aminotransferase (ALT /SGPT) Alkaline Phosphatase 73 Lactate Dehydrogenase 321 Total Protein 6.8 Albumin 3.4 Globulin 3.40 H Albumin/Globulin 1.00 Ratio Medications Medication Current Medications Insulin Aspart (Novolog Insulin Pen) NOVOLOG *MILD* ALGORITHM WITH MEALS BEDTIME SC Last administered on 04/08/19at 20:18; Admin Dose 1 UNIT; Start 03/23/19 at 18:00 IV Flush (NS 3 ml) 3 ml PER PROTOCOL IV Last administered on 04/08/19 05:29; Admin Dose 3 ML; Start 03/23/19 at 18:00 Ondansetron HCl (Zofran Inj) 4 mg Q6H PRN IV NAUSEA/VOMITING Last administered on 04/06/19 12:46; Admin Dose 4 MG; Start 03/23/19 at 18:00 Acetaminophen (Tylenol Tab) 650 mg Q6H PRN PO .PAIN 1-3 OR TEMP Last administered on 04/08/19 11:28; Admin Dose 650 MG; Start 03/23/19 at 18:00 Acetaminophen/ Hydrocodone Bitart ([place] (5/325)) 1 tab Q6H PRN PO .MOD PAIN 4- 6 Last administered on 04/05/19 22:36; Admin Dose 1 TAB; Start 03/23/19 at 18:00 Polyethylene Glycol (Miralax) 17 gm BID PO Last administered on 04/08/19 20:29; Admin Dose 17 GM; Start 03/23/19 at 21:00 Miscellaneous Information 1 ea NOTE XX ; Start 03/23/19 at 18:00 Glucose (Glutose) 15 gm Q15M PRN PO DECREASED GLUCOSE; Start 03/23/19 at 18:00 Glucose (Glutose) 22.5 gm Q15M PRN PO DECREASED GLUCOSE; Start 03/23/19 at 18:00 Dextrose (D50w Syringe) 25 ml Q15M PRN IV DECREASED GLUCOSE; Start 03/23/19 at 18:00 Dextrose (D50w Syringe) 50 ml Q15M PRN IV DECREASED GLUCOSE; Start 03/23/19 at 18:00 Glucagon (Glucagen) 1 mg Q15M PRN IM DECREASED GLUCOSE; Start 03/23/19 at 18:00 Glucose (Glutose) 15 gm Q15M PRN BUCCAL DECREASED GLUCOSE; Start 03/23/19 at 18 :00 Hydralazine HCl (Apresoline) 10 mg Q4H PRN IV FOR SBP>170; Start 03/26/19 at 03:30 Albuterol/ Ipratropium (Duoneb) 3 ml Q2H RESP THERAPY PRN HHN sob; Start 03/26/19 at 12:30 Allopurinol (Zyloprim) 300 mg DAILY PO Last administered on 04/08/19 08:39; Admin Dose 300 MG; Start 03/29/19 at 15:30 Furosemide (Lasix) 20 mg DAILY PO Last administered on 04/08/19 08:41; Admin Dose 20 MG; Start 04/02/19 at 09:00 Insulin Aspart (Novolog Insulin Pen) 5 unit WITH MEALS SC Last administered on 04/08/19 18:03; Admin Dose 5 UNIT; Start 04/02/19 at 11:40 Fluconazole (Diflucan) 100 mg DAILY PO Last administered on 04/08/19 08:40; Admin Dose 100 MG; Start 04/02/19 at 15:30 Acyclovir (Zovirax) 400 mg DAILY PO Last administered on 04/08/19 08:39; Admin Dose 400 MG; Start 04/03/19 at 09:00 Levofloxacin (Levaquin) 500 mg DAILY@06 PO Last administered on 04/09/19 05:40; Admin Dose 500 MG; Start 04/03/19 at 06:00 Doxycycline Hyclate (Vibramycin) 100 mg BID PO Last administered on 04/08/19 20:19; Admin Dose 100 MG; Start 04/02/19 at 21:00 Famotidine (Pepcid) 20 mg BID PO Last administered on 04/08/19 20:20; Admin Dose 20 MG; Start 04/02/19 at 21:00 Al Hydrox/Mg Hydrox/Simethicone (Mag-Al Plus) 30 ml Q6H PRN PO GASTROINTESTINAL UPSET; Start 04/02/19 at 18:30 Carvedilol (Coreg) 12.5 mg BID PO Last administered on 04/08/19 20:20; Admin Dose 12.5 MG; Start 04/02/19 at 21:00 Dexamethasone (Maxidex 0.1% Oph) 2 drop BID BOTH EYES Last administered on 04/08/19 20:21; Admin Dose 2 DROP; Start 04/03/19 at 21:00 Insulin Glargine (Lantus) 20 units DAILY@2000 SC Last administered on 04/08/19 20:18; Admin Dose 20 UNITS; Start 04/05/19 at 20:00 Lisinopril (Zestril) 20 mg BID PO Last administered on 04/08/19at 20:19; Admin Dose 20 MG; Start 04/05/19 at 21:00 KATIE PACE NP Apr 09, 2019 07:32
[2019-04-09] MEDS: INSULIN ASPART [NOVOLOG] 3 ML PEN SC SCH ×7 (07:50→20:33)
[2019-04-09] MEDS: ACYCLOVIR 400 MG TAB PO SCH (08:35)
[2019-04-09] MEDS: DOXYCYCLINE 100 MG TAB PO SCH ×2 (08:35→20:26)
[2019-04-09] MEDS: FLUCONAZOLE 100 MG TAB PO SCH (08:35)
[2019-04-09] MEDS: ALLOPURINOL 300 MG TAB PO SCH (08:35)
[2019-04-09] MEDS: FAMOTIDINE 20 MG TAB PO SCH ×2 (08:35→20:27)
[2019-04-09] MEDS: FUROSEMIDE 20 MG TAB PO SCH (08:36)
[2019-04-09] MEDS: DEXAMETHASONE 0.1% 5 ML OPH BOTH EYES SCH ×3 (08:37→20:49)
[2019-04-09] MEDS: LISINOPRIL 20 MG TAB PO SCH ×2 (08:37→20:27)
[2019-04-09] MEDS: POLYETHYLENE GLYCOL 17 GM PACKET PO SCH ×2 (08:38→21:00)
[2019-04-09] MEDS: ONDANSETRON 4 MG INJ IV PRN ×2 (11:09→17:54)
--- NOTE | 2019-04-09 12:13 | CONS ---
Assessment/Plan Assessment/Plan Hospital Course (Demo Recall) Patient is alert and looks comfortable, afebrile Indwelling's: Right IJ Port-A-Cath Blood cultures and urine culture negative Antimicrobials: Doxycycline, levofloxacin, fluconazole, acyclovir Physical examination: Well-developed middle-aged man who is alert in no distress head atraumatic normocephalic sclera nonicteric vehicle mucosa pink neck is supple chest rise symmetrical breath sounds clear Heart S1-S2 abdomen soft bowel sounds present extremities without cyanosis edema Assessment: 1. Neutropenia 2. AML, newly diagnosed 3. Diabetes 4. Hypertension 5. Pancytopenia Plan: Stable, continue prophylactic antimicrobials, continue chemotherapy per oncology, probiotics Consultation Date/Type/Reason Admit Date/Time Mar 23, 2019 at 16:10 Initial Consult Date 03/24/19 Type of Consult id Requesting Provider: KATIE PACE NP Date/Time of Note DATE: 04/09/19 TIME: 12:11 Exam/Review of Systems Exam Vitals Vital Signs Date Temp Pulse Resp B/P (MAP) Pulse Ox O2 O2 Flow FiO2 Time Delivery Rate 04/09/19 98.4 82 19 132/78 98 07:19 (96) 04/09/19 Room Air 02:05 Intake and Output 04/08/19 04/08/19 04/09/19 1515:00 23:00 07:00 IntakeIntake Total 560 ml 1290 ml BalanceBalance 560 ml 1290 ml Results Result Diagram: 04/09/19 0422 04/09/19 0423 Results 24hrs Laboratory Tests Test 04/08/19 12:45 04/08/19 17:56 04/08/19 20:14 04/09/19 01:35 Bedside Glucose 205 153 188 97 Test 04/09/19 04:22 04/09/19 04:23 04/09/19 07:46 04/09/19 08:30 White Blood Count 0.4 L Red Blood Count 2.79 L Hemoglobin 8.8 L Hematocrit 24.2 L Mean Corpuscular 86.7 Volume Mean Corpuscular 31.5 Hemoglobin Mean Corpuscular 36.4 Hemoglobin Concen t Red Cell 12.6 Distribution Width Platelet Count 40 #L Mean Platelet 10.5 H Volume Immature 0.000 L Granulocytes % Neutrophils % 7.9 L Segmented 2 L Neutrophils % (Manual) Lymphocytes % 92.1 H Lymphocytes % 97 H (Manual) Monocytes % 0.0 Monocytes % 1 (Manual) Eosinophils % 0.0 Basophils % 0.0 Nucleated Red 0.0 Blood Cells % Immature 0.000 Granulocytes # Neutrophils # 0.0 L Lymphocytes 0.3 L (Manual) Lymphocytes # 0.4 L Monocytes # 0.0 L Monocytes # 0.0 L (Manual) Eosinophils # 0.0 Basophils # 0.0 Nucleated Red 0.0 Blood Cells # Platelet Estimate SIG DECREASED Poikilocytosis 1+ Anisocytosis 1+ Phosphorus Level 4.3 Magnesium Level 2.0 Sodium Level 134 L Potassium Level 4.0 Chloride Level 100 Carbon Dioxide 24 Level Anion Gap 10 Blood Urea 11 Nitrogen Creatinine 0.51 L Est Glomerular > 60 Filtrat Rate mL/min Glucose Level 81 Uric Acid 1.6 L Calcium Level 8.2 L Total Bilirubin 0.8 Direct Bilirubin 0.00 Indirect 0.8 Bilirubin Aspartate Amino 12 L Transf (AST/SGOT) Alanine 32 Aminotransferase (ALT/SGPT) Alkaline 73 Phosphatase Lactate 321 Dehydrogenase Total Protein 6.8 Albumin 3.4 Globulin 3.40 H Albumin/Globulin 1.00 Ratio Lab Scanned BLOOD TRANSFUSIO Report N Bedside Glucose 99 Medications Medication Current Medications Insulin Aspart (Novolog Insulin Pen) NOVOLOG *MILD* ALGORITHM WITH MEALS B EDTIME SC Last administered on 04/08/19 20:18; Admin Dose 1 UNIT; Start 03/23/19 at 18:00 IV Flush (NS 3 ml) 3 ml PER PROTOCOL IV Last administered on 04/08/19 05:29; Admin Dose 3 ML; Start 03/23/19 at 18:00 Ondansetron HCl (Zofran Inj) 4 mg Q6H PRN IV NAUSEA/VOMITING Last administered on 04/09/19 11:09; Admin Dose 4 MG; Start 03/23/19 at 18:00 Acetaminophen (Tylenol Tab) 650 mg Q6H PRN PO .PAIN 1-3 OR TEMP Last administered on 04/08/19 11:28; Admin Dose 650 MG; Start 03/23/19 at 18:00 Acetaminophen/ Hydrocodone Bitart ([place] (5/325)) 1 tab Q6H PRN PO .MOD PAIN 4- 6 Last administered on 04/05/19 22:36; Admin Dose 1 TAB; Start 03/23/19 at 18:00 Polyethylene Glycol (Miralax) 17 gm BID PO Last administered on 04/08/19at 20:29; Admin Dose 17 GM; Start 03/23/19 at 21:00 Miscellaneous Information 1 ea NOTE XX ; Start 03/23/19 at 18:00 Glucose (Glutose) 15 gm Q15M PRN PO DECREASED GLUCOSE; Start 03/23/19 at 18:00 Glucose (Glutose) 22.5 gm Q15M PRN PO DECREASED GLUCOSE; Start 03/23/19 at 18:00 Dextrose (D50w Syringe) 25 ml Q15M PRN IV DECREASED GLUCOSE; Start 03/23/19 at 18:00 Dextrose (D50w Syringe) 50 ml Q15M PRN IV DECREASED GLUCOSE; Start 03/23/19 at 18:00 Glucagon (Glucagen) 1 mg Q15M PRN IM DECREASED GLUCOSE; Start 03/23/19 at 18:00 Glucose (Glutose) 15 gm Q15M PRN BUCCAL DECREASED GLUCOSE; Start 03/23/19 at 18:00 Hydralazine HCl (Apresoline) 10 mg Q4H PRN IV FOR SBP>170; Start 03/26/19 at 03:30 Albuterol/ Ipratropium (Duoneb) 3 ml Q2H RESP THERAPY PRN HHN sob; Start 03/26/19 at 12:30 Allopurinol (Zyloprim) 300 mg DAILY PO Last administered on 04/09/19at 08:35; Adm in Dose 300 MG; Start 03/29/19 at 15:30 Furosemide (Lasix) 20 mg DAILY PO Last administered on 04/09/19at 08:36; Admin Dose 20 MG; Start 04/02/19 at 09:00 Insulin Aspart (Novolog Insulin Pen) 5 unit WITH MEALS SC Last administered on 04/09/19at 08:37; Admin Dose 5 UNIT; Start 04/02/19 at 11:40 Fluconazole (Diflucan) 100 mg DAILY PO Last administered on 04/09/19at 08:35; Admin Dose 100 MG; Start 04/02/19 at 15:30 Acyclovir (Zovirax) 400 mg DAILY PO Last administered on 04/09/19at 08:35; Admin Dose 400 MG; Start 04/03/19 at 09:00 Levofloxacin (Levaquin) 500 mg DAILY@06 PO Last administered on 04/09/19 05:40; Admin Dose 500 MG; Start 04/03/19 at 06:00 Doxycycline Hyclate (Vibramycin) 100 mg BID PO Last administered on 04/09/19 08:35; Admin Dose 100 MG; Start 04/02/19 at 21:00 Famotidine (Pepcid) 20 mg BID PO Last administered on 04/09/19 08:35; Admin Dose 20 MG; Start 04/02/19 at 21:00 Al Hydrox/Mg Hydrox/Simethicone (Mag-Al Plus) 30 ml Q6H PRN PO GASTROINTESTINAL UPSET; Start 04/02/19 at 18:30 Carvedilol (Coreg) 12.5 mg BID PO Last administered on 04/09/19 08:38; Admin Dose 12.5 MG; Start 04/02/19 at 21:00 Dexamethasone (Maxidex 0.1% Oph) 2 drop BID BOTH EYES Last administered on 04/09/19 08:59; Admin Dose 2 DROP; Start 04/03/19 at 21:00 Insulin Glargine (Lantus) 20 units DAILY@2000 SC Last administered on 04/08/19 20:18; Admin Dose 20 UNITS; Start 04/05/19 at 20:00 Lisinopril (Zestril) 20 mg BID PO Last administered on 04/09/19 08:37; Admin Dose 20 MG; Start 04/05/19 at 21:00 JEANNIE NICHOLSON NP Apr 09, 2019 12:13
[2019-04-09] MEDS: AL HYDROX/MG HYDROX/SIMETH 30 ML CUP PO PRN (13:41)
--- NOTE | 2019-04-09 14:15 | PN ---
Date/Time of Note Date/Time of Note DATE: 04/09/19 TIME: 14:12 Assessment/Plan VTE Prophylaxis Risk score (from [facility])>0 risk: 6 SCD applied (from [facility]): Yes Pharmacological prophylaxis: other Pharm contraindication: thrombocytopenia Lines/Catheters IV C[facility]ter Type [facility]from [facility] [place] line still needed: Yes Urinary Cath still in place: No Assessment/Plan Assessment/Plan Pt feels better after RBC and plt transfusions yesterday. He and his son were told that he will still need to be here for at least a couple of weeks before marrow recovery is likely. Continue current plans and monitor counts daily. Today is day 11 of the induction program. Result Diagram: 04/09/19 0422 04/09/19 0423 Results 24hrs Laboratory Tests Test 04/08/19 17:56 04/08/19 20:14 04/09/19 01:35 04/09/19 04:22 Bedside Glucose 153 188 97 White Blood Count 0.4 L Red Blood Count 2.79 L Hemoglobin 8.8 L Hematocrit 24.2 L Mean Corpuscular 86.7 Volume Mean Corpuscular 31.5 Hemoglobin Mean Corpuscular 36.4 Hemoglobin Concen t Red Cell 12.6 Distribution Width Platelet Count 40 #L Mean Platelet 10.5 H Volume Immature 0.000 L Granulocytes % Neutrophils % 7.9 L Segmented 2 L Neutrophils % (Manual) Lymphocytes % 92.1 H Lymphocytes % 97 H (Manual) Monocytes % 0.0 Monocytes % 1 (Manual) Eosinophils % 0.0 Basophils % 0.0 Nucleated Red 0.0 Blood Cells % Immature 0.000 Granulocytes # Neutrophils # 0.0 L Lymphocytes 0.3 L (Manual) Lymphocytes # 0.4 L Monocytes # 0.0 L Monocytes # 0.0 L (Manual) Eosinophils # 0.0 Basophils # 0.0 Nucleated Red 0.0 Blood Cells # Platelet Estimate SIG DECREASED Poikilocytosis 1+ Anisocytosis 1+ Phosphorus Level 4.3 Magnesium Level 2.0 Test 04/09/19 04:23 04/09/19 07:46 04/09/19 08:30 04/09/19 12:46 Sodium Level 134 L Potassium Level 4.0 Chloride Level 100 Carbon Dioxide 24 Level Anion Gap 10 Blood Urea 11 Nitrogen Creatinine 0.51 L Est Glomerular > 60 Filtrat Rate mL/min Glucose Level 81 Uric Acid 1.6 L Calcium Level 8.2 L Total Bilirubin 0.8 Direct Bilirubin 0.00 Indirect 0.8 Bilirubin Aspartate Amino 12 L Transf (AST/SGOT) Alanine 32 Aminotransferase (ALT/SGPT) Alkaline 73 Phosphatase Lactate 321 Dehydrogenase Total Protein 6.8 Albumin 3.4 Globulin 3.40 H Albumin/Globulin 1.00 Ratio Lab Scanned BLOOD TRANSFUSIO Report N Bedside Glucose 99 180 Subjective 24 Hr Interval Summary Free Text/Dictation Pt feels better than yesterday but is still very sedentary Exam/Review of Systems Exam Vitals Vital Signs Date Temp Pulse Resp B/P (MAP) Pulse Ox O2 O2 Flow FiO2 Time Delivery Rate 04/09/19 98.4 82 19 132/78 98 07:19 (96) 04/09/19 Room Air 02:05 Intake and Output 04/08/19 04/08/19 04/09/19 1515:00 23:00 07:00 IntakeIntake Total 560 ml 1290 ml BalanceBalance 560 ml 1290 ml Constitutional: alert, oriented Head: normocephalic Eyes: other (cnjunctival pallor) Neck: supple Respiratory: clear to auscultation Cardiovascular: regular rate and rhythm Gastrointestinal: soft, nl liver, spleen, non-tender Extremities: normal pulses Lymph: nl lymph nodes Results Results 24hrs Laboratory Tests Test 04/08/19 17:56 04/08/19 20:14 04/09/19 01:35 04/09/19 04:22 Bedside Glucose 153 188 97 White Blood Count 0.4 L Red Blood Count 2.79 L Hemoglobin 8.8 L Hematocrit 24.2 L Mean Corpuscular 86.7 Volume Mean Corpuscular 31.5 Hemoglobin Mean Corpuscular 36.4 Hemoglobin Concen t Red Cell 12.6 Distribution Width Platelet Count 40 #L Mean Platelet 10.5 H Volume Immature 0.000 L Granulocytes % Neutrophils % 7.9 L Segmented 2 L Neutrophils % (Manual) Lymphocytes % 92.1 H Lymphocytes % 97 H (Manual) Monocytes % 0.0 Monocytes % 1 (Manual) Eosinophils % 0.0 Basophils % 0.0 Nucleated Red 0.0 Blood Cells % Immature 0.000 Granulocytes # Neutrophils # 0.0 L Lymphocytes 0.3 L (Manual) Lymphocytes # 0.4 L Monocytes # 0.0 L Monocytes # 0.0 L (Manual) Eosinophils # 0.0 Basophils # 0.0 Nucleated Red 0.0 Blood Cells # Platelet Estimate SIG DECREASED Poikilocytosis 1+ Anisocytosis 1+ Phosphorus Level 4.3 Magnesium Level 2.0 Test 04/09/19 04:23 04/09/19 07:46 04/09/19 08:30 04/09/19 12:46 Sodium Level 134 L Potassium Level 4.0 Chloride Level 100 Carbon Dioxide 24 Level Anion Gap 10 Blood Urea 11 Nitrogen Creatinine 0.51 L Est Glomerular > 60 Filtrat Rate mL/min Glucose Level 81 Uric Acid 1.6 L Calcium Level 8.2 L Total Bilirubin 0.8 Direct Bilirubin 0.00 Indirect 0.8 Bilirubin Aspartate Amino 12 L Transf (AST/SGOT) Alanine 32 Aminotransferase (ALT/SGPT) Alkaline 73 Phosphatase Lactate 321 Dehydrogenase Total Protein 6.8 Albumin 3.4 Globulin 3.40 H Albumin/Globulin 1.00 Ratio Lab Scanned BLOOD TRANSFUSIO Report N Bedside Glucose 99 180 Medications Medication Current Medications Insulin Aspart (Novolog Insulin Pen) NOVOLOG *MILD* ALGORITHM WITH MEALS BEDTIME SC Last administered on 04/09/19 12:51; Admin Dose 1 UNIT; Start 03/23/19 at 18:00 IV Flush (NS 3 ml) 3 ml PER PROTOCOL IV Last administered on 04/08/19 05:29; Admin Dose 3 ML; Start 03/23/19 at 18:00 Ondansetron HCl (Zofran Inj) 4 mg Q6H PRN IV NAUSEA/VOMITING Last administered on 04/09/19 11:09; Admin Dose 4 MG; Start 03/23/19 at 18:00 Acetaminophen (Tylenol Tab) 650 mg Q6H PRN PO .PAIN 1-3 OR TEMP Last administered on 04/08/19 11:28; Admin Dose 650 MG; Start 03/23/19 at 18:00 Acetaminophen/ Hydrocodone Bitart ([place] (5/325)) 1 tab Q6H PRN PO .MOD PAIN 4- 6 Last administered on 04/05/19 22:36; Admin Dose 1 TAB; Start 03/23/19 at 18: 00 Polyethylene Glycol (Miralax) 17 gm BID PO Last administered on 04/08/19 20:29; Admin Dose 17 GM; Start 03/23/19 at 21:00 Miscellaneous Information 1 ea NOTE XX ; Start 03/23/19 at 18:00 Glucose (Glutose) 15 gm Q15M PRN PO DECREASED GLUCOSE; Start 03/23/19 at 18:00 Glucose (Glutose) 22.5 gm Q15M PRN PO DECREASED GLUCOSE; Start 03/23/19 at 18:00 Dextrose (D50w Syringe) 25 ml Q15M PRN IV DECREASED GLUCOSE; Start 03/23/19 at 18:00 Dextrose (D50w Syringe) 50 ml Q15M PRN IV DECREASED GLUCOSE; Start 03/23/19 at 18:00 Glucagon (Glucagen) 1 mg Q15M PRN IM DECREASED GLUCOSE; Start 03/23/19 at 18:00 Glucose (Glutose) 15 gm Q15M PRN BUCCAL DECREASED GLUCOSE; Start 03/23/19 at 18:00 Hydralazine HCl (Apresoline) 10 mg Q4H PRN IV FOR SBP>170; Start 03/26/19 at 03:30 Albuterol/ Ipratropium (Duoneb) 3 ml Q2H RESP THERAPY PRN HHN sob; Start 03/26/19 at 12:30 Allopurinol (Zyloprim) 300 mg DAILY PO Last administered on 04/09/19 08:35; Admin Dose 300 MG; Start 03/29/19 at 15:30 Furosemide (Lasix) 20 mg DAILY PO Last administered on 04/09/19at 08:36; Admin Dose 20 MG; Start 04/02/19 at 09:00 Insulin Aspart (Novolog Insulin Pen) 5 unit WITH MEALS SC Last administered on 04/09/19at 12:52; Admin Dose 5 UNIT; Start 04/02/19 at 11:40 Fluconazole (Diflucan) 100 mg DAILY PO Last administered on 04/09/19 08:35; Admin Dose 100 MG; Start 04/02/19 at 15:30 Acyclovir (Zovirax) 400 mg DAILY PO Last administered on 04/09/19 08:35; Admin Dose 400 MG; Start 04/03/19 at 09:00 Levofloxacin (Levaquin) 500 mg DAILY@06 PO Last administered on 04/09/19at 05:40; Admin Dose 500 MG; Start 04/03/19 at 06:00 Doxycycline Hyclate (Vibramycin) 100 mg BID PO Last administered on 04/09/19 08:35; Admin Dose 100 MG; Start 04/02/19 at 21:00 Famotidine (Pepcid) 20 mg BID PO Last administered on 04/09/19 08:35; Admin Dose 20 MG; Start 04/02/19 at 21:00 Al Hydrox/Mg Hydrox/Simethicone (Mag-Al Plus) 30 ml Q6H PRN PO GASTROINTESTINAL UPSET Last administered on 04/09/19 13:41; Admin Dose 30 ML; Start 04/02/19 at 18:30 Carvedilol (Coreg) 12.5 mg BID PO Last administered on 04/09/19 08:38; Admin Dose 12.5 MG; Start 04/02/19 at 21:00 Dexamethasone (Maxidex 0.1% Oph) 2 drop BID BOTH EYES Last administered on 04/09/19 08:59; Admin Dose 2 DROP; Start 04/03/19 at 21:00 Insulin Glargine (Lantus) 20 units DAILY@2000 SC Last administered on 04/08/19at 20:18; Admin Dose 20 UNITS; Start 04/05/19 at 20:00 Lisinopril (Zestril) 20 mg BID PO Last administered on 04/09/19 08:37; Admin Dose 20 MG; Start 04/05/19 at 21:00 Lactobacillus Acidophilus (Florajen3 Capsule) 1 each BID PO ; Start 04/09/19 at 21:00 BETTE MALDONADO MD Apr 09, 2019 14:15
[2019-04-09 14:51] VITALS: BP 134/72; PULSE 78; RESP 20
[2019-04-09 20:06] VITALS: BP 145/79; PULSE 83; RESP 18
[2019-04-09] MEDS: ACETAMINOPHEN 325 MG TAB PO PRN (20:26)
[2019-04-09] MEDS: INSULIN GLARGINE [LANTus] (100 UNITS/ML) SYG SC SCH (20:33)
[2019-04-09] MEDS ORDERED: L ACIDOPHIL/B LACTIS/B LONGUM CAPSULE PO SCH (21:00)
[2019-04-10] MEDS ORDERED: ACCU-CHEK XX SCH (02:00)
[2019-04-10 02:01] VITALS: BP 121/65; PULSE 89; RESP 18
[2019-04-10] MEDS: HYDROCODONE/APAP (5/325) TAB PO PRN (03:07)
[2019-04-10] MEDS: LEVOFLOXACIN 500 MG TAB PO SCH (06:16)
[2019-04-10 08:23] VITALS: BP 124/74; PULSE 92; RESP 18
[2019-04-10] MEDS: POLYETHYLENE GLYCOL 17 GM PACKET PO SCH (09:00)
[2019-04-10] MEDS: ACETAMINOPHEN 325 MG TAB PO PRN (09:05)
[2019-04-10] MEDS: ALLOPURINOL 300 MG TAB PO SCH (09:06)
[2019-04-10] MEDS: FLUCONAZOLE 100 MG TAB PO SCH (09:06)
[2019-04-10] MEDS: DOXYCYCLINE 100 MG TAB PO SCH (09:06)
[2019-04-10] MEDS: FAMOTIDINE 20 MG TAB PO SCH (09:06)
[2019-04-10] MEDS: ACYCLOVIR 400 MG TAB PO SCH (09:06)
[2019-04-10] MEDS: LISINOPRIL 20 MG TAB PO SCH ×2 (09:07→20:28)
[2019-04-10] MEDS: FUROSEMIDE 20 MG TAB PO SCH (09:07)
[2019-04-10] MEDS: DEXAMETHASONE 0.1% 5 ML OPH BOTH EYES SCH (09:08)
[2019-04-10] MEDS: INSULIN ASPART [NOVOLOG] 3 ML PEN SC SCH ×7 (09:09→20:37)
--- NOTE | 2019-04-10 13:45 | CONS ---
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 Continue beta-lissette as heart rate and blood pressure permits Consultation Date/Type/Reason Admit Date/Time Mar 23, 2019 at 16:10 Initial Consult Date 03/24/19 Type of Consult Cardiology Requesting Provider: KATIE PACE NP Date/Time of Note DATE: 04/10/19 TIME: 13:43 24 HR Interval Summary Free Text/Dictation No shortness of breath, chest pain or palpitation Exam/Review of Systems Vital Signs Vitals Vital Signs Date Temp Pulse Resp B/P (MAP) Pulse Ox O2 O2 Flow FiO2 Time Delivery Rate 04/10/19 98.5 10:53 04/10/19 92 18 124/74 96 08:23 (91) 04/09/19 Room Air 02:05 Intake and Output 04/09/19 04/09/19 04/10/19 1414:59 22:59 06:59 IntakeIntake Total 300 ml 480 ml 480 ml BalanceBalance 300 ml 480 ml 480 ml Exam Constitutional: alert, oriented Head: normocephalic Respiratory: clear to auscultation, normal air movement, other Cardiovascular: regular rate and rhythm (S1-S2 heard) Gastrointestinal: soft, non-tender, bowel sounds Extremities: other (No significant edema) Labs Result Diagram: 04/10/19 0424 04/10/19 0424 Results 24hrs Laboratory Tests Test 04/09/19 17:34 04/09/19 20:25 04/10/19 02:31 04/10/19 04:24 Bedside Glucose 159 183 128 White Blood Count 0.2 #L Red Blood Count 2.64 L Hemoglobin 8.5 L Hematocrit 23.4 L Mean Corpuscular Volume 88.6 Mean Corpuscular 32.2 Hemoglobin Mean Corpuscular 36.3 Hemoglobin Concent Red Cell Distribution 12.5 Width Platelet Count 24 #*L Mean Platelet Volume 10.3 Immature Granulocytes % 0.000 L Neutrophils % Lymphocytes % Monocytes % Eosinophils % Basophils % Nucleated Red Blood 0.0 Cells % Immature Granulocytes # 0.000 Neutrophils # Lymphocytes # Monocytes # Eosinophils # Basophils # Nucleated Red Blood Cells # Sodium Level 129 L Potassium Level 4.1 Chloride Level 96 L Carbon Dioxide Level 23 Anion Gap 10 Blood Urea Nitrogen 11 Creatinine 0.56 L Est Glomerular Filtrat > 60 Rate mL/min Glucose Level 134 # Uric Acid 1.7 L Calcium Level 8.3 L Phosphorus Level 4.6 Magnesium Level 1.8 Total Bilirubin 0.7 Direct Bilirubin 0.00 Indirect Bilirubin 0.7 Aspartate Amino 12 L Transf (AST/SGOT) Alanine 32 Aminotransferase (ALT/SG PT) Alkaline Phosphatase 71 Lactate Dehydrogenase 309 L Total Protein 6.6 Albumin 3.3 Globulin 3.30 H Albumin/Globulin Ratio 1.00 Test 04/10/19 08:44 04/10/19 13:04 Bedside Glucose 146 228 H Medications Medications Current Medications Insulin Aspart (Novolog Insulin Pen) NOVOLOG *MILD* ALGORI... WITH MEALS BEDTIME SC Last administered on 04/10/19 13:06; Admin Dose 3 UNIT; Start 03/23/19 at 18:00 IV Flush (NS 3 ml) 3 ml PER PROTOCOL IV Last administered on 04/08/19 05:29; Admin Dose 3 ML; Start 03/23/19 at 18:00 Ondansetron HCl (Zofran Inj) 4 mg Q6H PRN IV NAUSEA/VOMITING Last administered on 04/09/19 17:54; Admin Dose 4 MG; Start 03/23/19 at 18:00 Acetaminophen (Tylenol Tab) 650 mg Q6H PRN PO .PAIN 1-3 OR TEMP Last admini stered on 04/10/19 09:05; Admin Dose 650 MG; Start 03/23/19 at 18:00 Acetaminophen/ Hydrocodone Bitart ([place] (5/325)) 1 tab Q6H PRN PO .MOD PAIN 4- 6 Last administered on 04/10/19 03:07; Admin Dose 1 TAB; Start 03/23/19 at 18:00 Polyethylene Glycol (Miralax) 17 gm BID PO Last administered on 04/08/19 20:29; Admin Dose 17 GM; Start 03/23/19 at 21:00 Miscellaneous Information 1 ea NOTE XX ; Start 03/23/19 at 18:00 Glucose (Glutose) 15 gm Q15M PRN PO DECREASED GLUCOSE; Start 03/23/19 at 18:00 Glucose (Glutose) 22.5 gm Q15M PRN PO DECREASED GLUCOSE; Start 03/23/19 at 18:00 Dextrose (D50w Syringe) 25 ml Q15M PRN IV DECREASED GLUCOSE; Start 03/23/19 at 18:00 Dextrose (D50w Syringe) 50 ml Q15M PRN IV DECREASED GLUCOSE; Start 03/23/19 at 18:00 Glucagon (Glucagen) 1 mg Q15M PRN IM DECREASED GLUCOSE; Start 03/23/19 at 18:00 Glucose (Glutose) 15 gm Q15M PRN BUCCAL DECREASED GLUCOSE; Start 03/23/19 at 18:00 Hydralazine HCl (Apresoline) 10 mg Q4H PRN IV FOR SBP>170; Start 03/26/19 at 03:30 Albuterol/ Ipratropium (Duoneb) 3 ml Q2H RESP THERAPY PRN HHN sob; Start 03/26/19 at 12:30 Allopurinol (Zyloprim) 300 mg DAILY PO Last administered on 04/10/19 09:06; Admin Dose 300 MG; Start 03/29/19 at 15:30 Furosemide (Lasix) 20 mg DAILY PO Last administered on 04/10/19 09:07; Admin Dose 20 MG; Start 04/02/19 at 09:00 Insulin Aspart (Novolog Insulin Pen) 5 unit WITH MEALS SC Last administered on 04/10/19 13:07; Admin Dose 5 UNIT; Start 04/02/19 at 11:40 Fluconazole (Diflucan) 100 mg DAILY PO Last administered on 04/10/19 09:06; Admin Dose 100 MG; Start 04/02/19 at 15:30 Acyclovir (Zovirax) 400 mg DAILY PO Last administered on 04/10/19 09:06; Admin Dose 400 MG; Start 04/03/19 at 09:00 Levofloxacin (Levaquin) 500 mg DAILY@06 PO Last administered on 04/10/19 06:16; Admin Dose 500 MG; Start 04/03/19 at 06:00 Doxycycline Hyclate (Vibramycin) 100 mg BID PO Last administered on 04/10/19 09:06; Admin Dose 100 MG; Start 04/02/19 at 21:00 Famotidine (Pepcid) 20 mg BID PO Last administered on 04/10/19 09:06; Admin Dose 20 MG; Start 04/02/19 at 21:00 Al Hydrox/Mg Hydrox/Simethicone (Mag-Al Plus) 30 ml Q6H PRN PO GASTROINTESTINAL UPSET Last administered on 04/09/19 13:41; Admin Dose 30 ML; Start 04/02/19 at 18:30 Carvedilol (Coreg) 12.5 mg BID PO Last administered on 04/10/19 09:07; Admin Dose 12.5 MG; Start 04/02/19 at 21:00 Dexamethasone (Maxidex 0.1% Oph) 2 drop BID BOTH EYES Last administered on 04/10/19 09:08; Admin Dose 2 DROP; Start 04/03/19 at 21:00 Insulin Glargine (Lantus) 20 units DAILY@2000 SC Last administered on 04/09/19 20:33; Admin Dose 20 UNITS; Start 04/05/19 at 20:00 Lisinopril (Zestril) 20 mg BID PO Last administered on 04/10/19 09:07; Admin Dose 20 MG; Start 04/05/19 at 21:00 Jun Ayala DO Apr 10, 2019 13:45
--- NOTE | 2019-04-10 13:59 | CONS ---
Assessment/Plan Assessment/Plan Hospital Course (Demo Recall) Patient is alert sitting up in a chair denies pain he has been having low-grade fevers with the highest 100.7. WBC 0.2 platelets 24 BUN 11 creatinine 0.56 Indwelling's: Right IJ Port-A-Cath Blood cultures and urine culture negative Antimicrobials: Doxycycline, levofloxacin, fluconazole, acyclovir Physical examination: Well-developed middle-aged man who is alert in no distress head atraumatic normocephalic sclera nonicteric vehicle mucosa pink neck is supple chest rise symmetrical breath sounds clear Heart S1-S2 abdomen soft bowel sounds present extremities without cyanosis edema Assessment: 1. Neutropenia with fevers 2. AML, newly diagnosed 3. Diabetes 4. Hypertension 5. Pancytopenia Plan: Remains stable, continue prophylactic antimicrobials, will repeat blood an d urine cultures if fever increased to 101, start Vanco Merrem and DC doxycycline Consultation Date/Type/Reason Admit Date/Time Mar 23, 2019 at 16:10 Initial Consult Date 03/24/19 Type of Consult id Requesting Provider: KATIE PACE NP Date/Time of Note DATE: 04/10/19 TIME: 13:57 Exam/Review of Systems Exam Vitals Vital Signs Date Temp Pulse Resp B/P (MAP) Pulse Ox O2 O2 Flow FiO2 Time Delivery Rate 04/10/19 98.5 10:53 04/10/19 92 18 124/74 96 08:23 (91) 04/09/19 Room Air 02:05 Intake and Output 04/09/19 04/09/19 04/10/19 1414:59 22:59 06:59 IntakeIntake Total 300 ml 480 ml 480 ml BalanceBalance 300 ml 480 ml 480 ml Results Result Diagram: 04/10/19 0424 04/10/19 0424 Results 24hrs Laboratory Tests Test 04/09/19 17:34 04/09/19 20:25 04/10/19 02:31 04/10/19 04:24 Bedside Glucose 159 183 128 White Blood Count 0.2 #L Red Blood Count 2.64 L Hemoglobin 8.5 L Hematocrit 23.4 L Mean Corpuscular Volume 88.6 Mean Corpuscular 32.2 Hemoglobin Mean Corpuscular 36.3 Hemoglobin Concent Red Cell Distribution 12.5 Width Platelet Count 24 #*L Mean Platelet Volume 10.3 Immature Granulocytes % 0.000 L Neutrophils % Lymphocytes % Monocytes % Eosinophils % Basophils % Nucleated Red Blood 0.0 Cells % Immature Granulocytes # 0.000 Neutrophils # Lymphocytes # Monocytes # Eosinophils # Basophils # Nucleated Red Blood Cells # Sodium Level 129 L Potassium Level 4.1 Chloride Level 96 L Carbon Dioxide Level 23 Anion Gap 10 Blood Urea Nitrogen 11 Creatinine 0.56 L Est Glomerular Filtrat > 60 Rate mL/min Glucose Level 134 # Uric Acid 1.7 L Calcium Level 8.3 L Phosphorus Level 4.6 Magnesium Level 1.8 Total Bilirubin 0.7 Direct Bilirubin 0.00 Indirect Bilirubin 0.7 Aspartate Amino 12 L Transf (AST/SGOT) Alanine 32 Aminotransferase (ALT/SG PT) Alkaline Phosphatase 71 Lactate Dehydrogenase 309 L Total Protein 6.6 Albumin 3.3 Globulin 3.30 H Albumin/Globulin Ratio 1.00 Test 04/10/19 08:44 04/10/19 13:04 Bedside Glucose 146 228 H Medications Medication Current Medications Insulin Aspart (Novolog Insulin Pen) NOVOLOG *MILD* ALGORI... WITH MEALS BEDTIME SC Last administered on 04/10/19 13:06; Admin Dose 3 UNIT; Start 03/23/19 at 18:00 IV Flush (NS 3 ml) 3 ml PER PROTOCOL IV Last administered on 04/08/19 05:29; Admin Dose 3 ML; Start 03/23/19 at 18:00 Ondansetron HCl (Zofran Inj) 4 mg Q6H PRN IV NAUSEA/VOMITING Last administered on 04/09/19 17:54; Admin Dose 4 MG; Start 03/23/19 at 18:00 Acetaminophen (Tylenol Tab) 650 mg Q6H PRN PO .PAIN 1-3 OR TEMP Last administered on 04/10/19 09:05; Admin Dose 650 MG; Start 03/23/19 at 18:00 Acetaminophen/ Hydrocodone Bitart ([place] (5/325)) 1 tab Q6H PRN PO .MOD PAIN 4- 6 Last administered on 04/10/19 03:07; Admin Dose 1 TAB; Start 03/23/19 at 18:00 Polyethylene Glycol (Miralax) 17 gm BID PO Last administered on 04/08/19 20:29; Admin Dose 17 GM; Start 03/23/19 at 21:00 Miscellaneous Information 1 ea NOTE XX ; Start 03/23/19 at 18:00 Glucose (Glutose) 15 gm Q15M PRN PO DECREASED GLUCOSE; Start 03/23/19 at 18:00 Glucose (Glutose) 22.5 gm Q15M PRN PO DECREASED GLUCOSE; Start 03/23/19 at 18:00 Dextrose (D50w Syringe) 25 ml Q15M PRN IV DECREASED GLUCOSE; Start 03/23/19 at 18:00 Dextrose (D50w Syringe) 50 ml Q15M PRN IV DECREASED GLUCOSE; Start 03/23/19 at 18:00 Glucagon (Glucagen) 1 mg Q15M PRN IM DECREASED GLUCOSE; Start 03/23/19 at 18:00 Glucose (Glutose) 15 gm Q15M PRN BUCCAL DECREASED GLUCOSE; Start 03/23/19 at 1 8:00 Hydralazine HCl (Apresoline) 10 mg Q4H PRN IV FOR SBP>170; Start 03/26/19 at 03:30 Albuterol/ Ipratropium (Duoneb) 3 ml Q2H RESP THERAPY PRN HHN sob; Start 03/26/19 at 12:30 Allopurinol (Zyloprim) 300 mg DAILY PO Last administered on 04/10/19 09:06; Admin Dose 300 MG; Start 03/29/19 at 15:30 Furosemide (Lasix) 20 mg DAILY PO Last administered on 04/10/19 09:07; Admin Dose 20 MG; Start 04/02/19 at 09:00 Insulin Aspart (Novolog Insulin Pen) 5 unit WITH MEALS SC Last administered on 04/10/19at 13:07; Admin Dose 5 UNIT; Start 04/02/19 at 11:40 Fluconazole (Diflucan) 100 mg DAILY PO Last administered on 04/10/19 09:06; Admin Dose 100 MG; Start 04/02/19 at 15:30 Acyclovir (Zovirax) 400 mg DAILY PO Last administered on 04/10/19 09:06; Admin Dose 400 MG; Start 04/03/19 at 09:00 Levofloxacin (Levaquin) 500 mg DAILY@06 PO Last administered on 04/10/19 06:16; Admin Dose 500 MG; Start 04/03/19 at 06:00 Doxycycline Hyclate (Vibramycin) 100 mg BID PO Last administered on 04/10/19 09:06; Admin Dose 100 MG; Start 04/02/19 at 21:00 Famotidine (Pepcid) 20 mg BID PO Last administered on 04/10/19 09:06; Admin Dose 20 MG; Start 04/02/19 at 21:00 Al Hydrox/Mg Hydrox/Simethicone (Mag-Al Plus) 30 ml Q6H PRN PO GASTROINTESTINAL UPSET Last administered on 04/09/19 13:41; Admin Dose 30 ML; Start 04/02/19 at 18:30 Carvedilol (Coreg) 12.5 mg BID PO Last administered on 04/10/19 09:07; Admin Dose 12.5 MG; Start 04/02/19 at 21:00 Dexamethasone (Maxidex 0.1% Oph) 2 drop BID BOTH EYES Last administered on 04/10/19 09:08; Admin Dose 2 DROP; Start 04/03/19 at 21:00 Insulin Glargine (Lantus) 20 units DAILY@2000 SC Last administered on 04/09/19 20:33; Admin Dose 20 UNITS; Start 04/05/19 at 20:00 Lisinopril (Zestril) 20 mg BID PO Last administered on 04/10/19 09:07; Admin Dose 20 MG; Start 04/05/19 at 21:00 JEANNIE NICHOLSON NP Apr 10, 2019 13:59
[2019-04-10 15:23] VITALS: BP 119/68; PULSE 82; RESP 18
[2019-04-10] MEDS ORDERED: VANCOMYCIN IV PER PHARMACY XX SCH (16:00)
[2019-04-10] MEDS ORDERED: VANCOMYCIN HCL 1.5 GM in SOD CHLORIDE 0.9% 250 ML IVPB SCH (17:00)
[2019-04-10] MEDS: MEROPENEM 500MG/50 ML (PMX) 50 ML IVPB SCH ×2 (18:02→23:02)
[2019-04-10 19:58] VITALS: BP 129/73; PULSE 91; RESP 18
--- NOTE | 2019-04-10 19:59 | PN ---
Date/Time of Note Date/Time of Note DATE: 04/10/19 TIME: 19:55 Assessment/Plan VTE Prophylaxis Risk score (from [facility] [place]0 risk: 5 SCD applied (from [facility] [place]): Yes SCD contraindicated: low risk/ambulating Pharmacological prophylaxis: NA/contraindicated Pharm contraindication: blood coag disorder Lines/Catheters IV C[facility]ter Type (from [facility] [place] line still needed: Yes Urinary Cath still in place: No Assessment/Plan Hospital Course A/P 1) AML; sp induction chemo; monitor 2) Neutropenic fever; cont atb/antiviral 3) CMY; EF=35%. ischemic vs nonischemic; cont bb/acei 4) DM [id number] 5) Metabolic syndrome 6) Pancytopenia S: sp transfusion. fever noted O: vss except fever PE no pallor reg s1s2 no mrg ctab; port c/d/i bs+ nt nd no r r g no edema Result Diagram: 04/10/19 0424 04/10/19 0424 Results 24hrs Laboratory Tests Test 04/09/19 20:25 04/10/19 02:31 04/10/19 04:24 04/10/19 08:44 Bedside Glucose 183 128 146 White Blood Count 0.2 #L Red Blood Count 2.64 L Hemoglobin 8.5 L Hematocrit 23.4 L Mean Corpuscular 88.6 Volume Mean Corpuscular 32.2 Hemoglobin Mean Corpuscular 36.3 Hemoglobin Concent Red Cell Distribution 12.5 Width Platelet Count 24 #*L Mean Platelet Volume 10.3 Immature Granulocytes 0.000 L % Neutrophils % Lymphocytes % Lymphocytes % 93 H (Manual) Monocytes % Monocytes % (Manual) 8 Eosinophils % Basophils % Nucleated Red Blood 0.0 Cells % Immature Granulocytes 0.000 # Neutrophils # Lymphocytes (Manual) 0.1 L Lymphocytes # Monocytes # Monocytes # (Manual) 0.0 L Eosinophils # Basophils # Nucleated Red Blood Cells # Platelet Estimate SIG DECREASED Polychromasia 1+ Poikilocytosis 2+ Sodium Level 129 L Potassium Level 4.1 Chloride Level 96 L Carbon Dioxide Level 23 Anion Gap 10 Blood Urea Nitrogen 11 Creatinine 0.56 L Est Glomerular > 60 Filtrat Rate mL/min Glucose Level 134 # Uric Acid 1.7 L Calcium Level 8.3 L Phosphorus Level 4.6 Magnesium Level 1.8 Total Bilirubin 0.7 Direct Bilirubin 0.00 Indirect Bilirubin 0.7 Aspartate Amino 12 L Transf (AST/SGOT) Alanine 32 Aminotransferase (ALT /SGPT) Alkaline Phosphatase 71 Lactate Dehydrogenase 309 L Total Protein 6.6 Albumin 3.3 Globulin 3.30 H Albumin/Globulin 1.00 Ratio Test 04/10/19 13:04 04/10/19 17:28 Bedside Glucose 228 H 226 H Exam/Review of Systems Exam Vitals Vital Signs Date Temp Pulse Resp B/P (MAP) Pulse Ox O2 O2 Flow FiO2 Time Delivery Rate 04/10/19 99.1 17:37 04/10/19 82 18 119/68 95 15:23 (85) 04/09/19 Room Air 02:05 Intake and Output 04/09/19 04/09/19 04/10/19 1515:00 23:00 07:00 IntakeIntake Total 300 ml 480 ml 480 ml BalanceBalance 300 ml 480 ml 480 ml Results Results 24hrs Laboratory Tests Test 04/09/19 20:25 04/10/19 02:31 04/10/19 04:24 04/10/19 08:44 Bedside Glucose 183 128 146 White Blood Count 0.2 #L Red Blood Count 2.64 L Hemoglobin 8.5 L Hematocrit 23.4 L Mean Corpuscular 88.6 Volume Mean Corpuscular 32.2 Hemoglobin Mean Corpuscular 36.3 Hemoglobin Concent Red Cell Distribution 12.5 Width Platelet Count 24 #*L Mean Platelet Volume 10.3 Immature Granulocytes 0.000 L % Neutrophils % Lymphocytes % Lymphocytes % 93 H (Manual) Monocytes % Monocytes % (Manual) 8 Eosinophils % Basophils % Nucleated Red Blood 0.0 Cells % Immature Granulocytes 0.000 # Neutrophils # Lymphocytes (Manual) 0.1 L Lymphocytes # Monocytes # Monocytes # (Manual) 0.0 L Eosinophils # Basophils # Nucleated Red Blood Cells # Platelet Estimate SIG DECREASED Polychromasia 1+ Poikilocytosis 2+ Sodium Level 129 L Potassium Level 4.1 Chloride Level 96 L Carbon Dioxide Level 23 Anion Gap 10 Blood Urea Nitrogen 11 Creatinine 0.56 L Est Glomerular > 60 Filtrat Rate mL/min Glucose Level 134 # Uric Acid 1.7 L Calcium Level 8.3 L Phosphorus Level 4.6 Magnesium Level 1.8 Total Bilirubin 0.7 Direct Bilirubin 0.00 Indirect Bilirubin 0.7 Aspartate Amino 12 L Transf (AST/SGOT) Alanine 32 Aminotransferase (ALT /SGPT) Alkaline Phosphatase 71 Lactate Dehydrogenase 309 L Total Protein 6.6 Albumin 3.3 Globulin 3.30 H Albumin/Globulin 1.00 Ratio Test 04/10/19 13:04 04/10/19 17:28 Bedside Glucose 228 H 226 H Medications Medication Current Medications Insulin Aspart (Novolog Insulin Pen) NOVOLOG *MILD* ALGORI... WITH MEALS BEDTIME SC Last administered on 04/10/19 17:53; Admin Dose 3 UNIT; Start 03/23/19 at 18:00 IV Flush (NS 3 ml) 3 ml PER PROTOCOL IV Last administered on 04/08/19 05:29; Admin Dose 3 ML; Start 03/23/19 at 18:00 Ondansetron HCl (Zofran Inj) 4 mg Q6H PRN IV NAUSEA/VOMITING Last administered on 04/09/19 17:54; Admin Dose 4 MG; Start 03/23/19 at 18:00 Acetaminophen (Tylenol Tab) 650 mg Q6H PRN PO .PAIN 1-3 OR TEMP Last admi nistered on 04/10/19 09:05; Admin Dose 650 MG; Start 03/23/19 at 18:00 Acetaminophen/ Hydrocodone Bitart ([place] (5/325)) 1 tab Q6H PRN PO .MOD PAIN 4- 6 Last administered on 04/10/19 03:07; Admin Dose 1 TAB; Start 03/23/19 at 18:00 Polyethylene Glycol (Miralax) 17 gm BID PO Last administered on 04/08/19 20:29; Admin Dose 17 GM; Start 03/23/19 at 21:00 Miscellaneous Information 1 ea NOTE XX ; Start 03/23/19 at 18:00 Glucose (Glutose) 15 gm Q15M PRN PO DECREASED GLUCOSE; Start 03/23/19 at 18:00 Glucose (Glutose) 22.5 gm Q15M PRN PO DECREASED GLUCOSE; Start 03/23/19 at 18:00 Dextrose (D50w Syringe) 25 ml Q15M PRN IV DECREASED GLUCOSE; Start 03/23/19 at 18:00 Dextrose (D50w Syringe) 50 ml Q15M PRN IV DECREASED GLUCOSE; Start 03/23/19 at 18:00 Glucagon (Glucagen) 1 mg Q15M PRN IM DECREASED GLUCOSE; Start 03/23/19 at 18:00 Glucose (Glutose) 15 gm Q15M PRN BUCCAL DECREASED GLUCOSE; Start 03/23/19 at 18:00 Hydralazine HCl (Apresoline) 10 mg Q4H PRN IV FOR SBP>170; Start 03/26/19 at 03:30 Albuterol/ Ipratropium (Duoneb) 3 ml Q2H RESP THERAPY PRN HHN sob; Start 03/26/19 at 12:30 Allopurinol (Zyloprim) 300 mg DAILY PO Last administered on 04/10/19 09:06; Admin Dose 300 MG; Start 03/29/19 at 15:30 Furosemide (Lasix) 20 mg DAILY PO Last administered on 04/10/19 09:07; Admin Dose 20 MG; Start 04/02/19 at 09:00 Insulin Aspart (Novolog Insulin Pen) 5 unit WITH MEALS SC Last administered on 04/10/19 17:54; Admin Dose 5 UNIT; Start 04/02/19 at 11:40 Fluconazole (Diflucan) 100 mg DAILY PO Last administered on 04/10/19 09:06; Admin Dose 100 MG; Start 04/02/19 at 15:30 Acyclovir (Zovirax) 400 mg DAILY PO Last administered on 04/10/19 09:06; Admin Dose 400 MG; Start 04/03/19 at 09:00 Levofloxacin (Levaquin) 500 mg DAILY@06 PO Last administered on 04/10/19 06:16; Admin Dose 500 MG; Start 04/03/19 at 06:00 Famotidine (Pepcid) 20 mg BID PO Last administered on 04/10/19 09:06; Admin Dose 20 MG; Start 04/02/19 at 21:00 Al Hydrox/Mg Hydrox/Simethicone (Mag-Al Plus) 30 ml Q6H PRN PO GASTROINTESTINAL UPSET Last administered on 04/09/19 13:41; Admin Dose 30 ML; Start 04/02/19 at 18:30 Carvedilol (Coreg) 12.5 mg BID PO Last administered on 04/10/19 09:07; Admin Dose 12.5 MG; Start 04/02/19 at 21:00 Dexamethasone (Maxidex 0.1% Oph) 2 drop BID BOTH EYES Last administered on 7/3/19at 09:08; Admin Dose 2 DROP; Start 04/03/19 at 21:00 Insulin Glargine (Lantus) 20 units DAILY@2000 SC Last administered on 04/09/19at 20:33; Admin Dose 20 UNITS; Start 04/05/19 at 20:00 Lisinopril (Zestril) 20 mg BID PO Last administered on 04/10/19 09:07; Admin Dose 20 MG; Start 04/05/19 at 21:00 Vancomycin HCl (Vanco Iv Per Pharmacy) VANCOMYCIN PER PHARMACY PER PROTOCOL XX ; Start 04/10/19 at 16:00 Meropenem/Sodium Chloride 50 ml @ 100 mls/hr Q8 IVPB Last administered on 04/10/19 18:02; Admin Dose 100 MLS/HR; Start 04/10/19 at 17:00 Vancomycin HCl 1.5 gm/Sodium Chloride 250 ml @ 83.333 mls/ hr Q24H IVPB Last administered on 04/10/19at 18:51; Admin Dose 83.333 MLS/HR; Start 04/10/19 at 17:00 Vancomycin HCl 1.25 gm/Sodium Chloride 250 ml @ 83.333 mls/ hr Q8H IVPB ; Start 04/11/19 at 01:00 ESPERANZA FAUST MD Apr 10, 2019 19:59
[2019-04-10] MEDS: MAGNESIUM OXIDE 400 MG TAB PO SCH (20:27)
[2019-04-10] MEDS: INSULIN GLARGINE [LANTus] (100 UNITS/ML) SYG SC SCH (20:36)
[2019-04-11] MEDS: VANCOMYCIN HCL 1.25 GM in SOD CHLORIDE 0.9% 250 ML IVPB SCH ×3 (01:24→17:19)
[2019-04-11 01:53] VITALS: BP 125/71; PULSE 84; RESP 19
[2019-04-11] MEDS: MEROPENEM 500MG/50 ML (PMX) 50 ML IVPB SCH ×3 (05:44→21:52)
[2019-04-11] MEDS: LEVOFLOXACIN 500 MG TAB PO SCH (05:44)
[2019-04-11 07:29] VITALS: BP 121/74; PULSE 79; RESP 16
[2019-04-11] MEDS: INSULIN ASPART [NOVOLOG] 3 ML PEN SC SCH ×7 (07:50→20:46)
--- NOTE | 2019-04-11 08:10 | CONS ---
Consult Date/Type/Reason Admit Date/Time Mar 23, 2019 at 16:10 Initial Consult Date 03/24/19 Requesting Provider: KATIE PACE NP Date/Time of Note DATE: 04/11/19 TIME: 08:07 Subjective Had low grade temp. Started on broad spectrum abx. No fever this am. Denies complaints including cough, dysuria, or mouth sores. Some loose BMs. No pain.No bleeding. Objective Vitals Vital Signs Date Temp Pulse Resp B/P (MAP) Pulse Ox O2 O2 Flow FiO2 Time Delivery Rate 04/11/19 98.5 79 16 121/74 100 Room Air 07:29 (90) Intake and Output 04/10/19 04/10/19 04/11/19 1414:59 22:59 06:59 IntakeIntake Total 1080 ml 1020 ml 300 ml BalanceBalance 1080 ml 1020 ml 300 ml Exam NAD/A&Ox4 OP clear RRR no m/g/r [place] in right ij CTA B Soft, nt, nd, +BS No c/c/e Results/Medications Result Diagram: 04/11/19 0432 04/11/19 0432 Results 24 hrs Laboratory Tests Test 04/10/19 08:44 04/10/19 13:04 04/10/19 17:28 04/10/19 20:32 Bedside Glucose 146 228 H 226 H 211 Test 04/11/19 01:43 04/11/19 04:32 Bedside Glucose 151 White Blood Count 0.5 #L Red Blood Count 2.72 L Hemoglobin 8.5 L Hematocrit 23.6 L Mean Corpuscular 86.8 Volume Mean Corpuscular 31.3 Hemoglobin Mean Corpuscular 36.0 Hemoglobin Concent Red Cell Distribution 12.5 Width Platelet Count 19 #*L Mean Platelet Volume 10.0 Immature Granulocytes 0.000 L % Neutrophils % Lymphocytes % Lymphocytes % 99 H (Manual) Monocytes % Monocytes % (Manual) 1 Eosinophils % Basophils % Nucleated Red Blood 0.0 Cells % Immature Granulocytes 0.000 # Neutrophils # Lymphocytes (Manual) 0.4 L Lymphocytes # Monocytes # Monocytes # (Manual) 0.0 L Eosinophils # Basophils # Nucleated Red Blood Cells # Platelet Estimate SIG DECREASED Polychromasia 3+ Poikilocytosis 1+ Anisocytosis 1+ Microcytosis 1+ Sodium Level 133 L Potassium Level 4.0 Chloride Level 98 Carbon Dioxide Level 23 Anion Gap 12 Blood Urea Nitrogen 12 Creatinine 0.58 L Est Glomerular > 60 Filtrat Rate mL/min Glucose Level 123 Uric Acid 1.6 L Calcium Level 8.2 L Total Bilirubin 0.5 Direct Bilirubin 0.00 Indirect Bilirubin 0.5 Aspartate Amino 24 # Transf (AST/SGOT) Alanine 86 H Aminotransferase (ALT /SGPT) Alkaline Phosphatase 109 # Lactate Dehydrogenase 300 L Total Protein 6.5 Albumin 3.2 L Globulin 3.30 H Albumin/Globulin 0.96 Ratio Thyroid Stimulating 2.720 Hormone (TSH) Home Meds Active Scripts Ibuprofen* (Motrin*) 800 Mg Tab, 800 MG PO Q6H PRN for PAIN AND OR ELEVATED TEMP, #30 TAB Prov:CRISPIN JUSTICE MD 03/22/19 Reported Medications Metoprolol Tartrate* (Lopressor*) 50 Mg Tab, 50 MG PO DAILY, #60 TAB 03/23/19 Lisinopril* (Lisinopril*) 20 Mg Tablet, 20 MG PO DAILY, #30 TAB 03/23/19 Azithromycin* (Azithromycin*) 500 Mg Tablet, 500 MG PO DAILY, TAB START DATE 03/21/19 03/23/19 Acetaminophen* (Acetaminophen*) 325 Mg Tablet, 325 MG PO QID PRN for PAIN AND OR ELEVATED TEMP, #30 TAB 03/23/19 Ondansetron Hcl* (Zofran*) 4 Mg Tab, 4 MG PO TID PRN for NAUSEA AND OR VOMITING, TAB 03/23/19 Metformin Hcl* (Metformin Hcl*) 500 Mg Tablet, 500 MG PO WITH BREAKFAST DINNE, #60 TAB 03/23/19 Medications Current Medications Insulin Aspart (Novolog Insulin Pen) NOVOLOG *MILD* ALGORI... WITH MEALS BEDTIME SC Last administered on 04/10/19at 20:37; Admin Dose 1 UNIT; Start 03/23/19 at 18:00 IV Flush (NS 3 ml) 3 ml PER PROTOCOL IV Last administered on 04/08/19at 05:29; Admin Dose 3 ML; Start 03/23/19 at 18:00 Ondansetron HCl (Zofran Inj) 4 mg Q6H PRN IV NAUSEA/VOMITING Last administered on 04/09/19at 17:54; Admin Dose 4 MG; Start 03/23/19 at 18:00 Acetaminophen (Tylenol Tab) 650 mg Q6H PRN PO .PAIN 1-3 OR TEMP Last administered on 04/10/19 09:05; Admin Dose 650 MG; Start 03/23/19 at 18:00 Acetaminophen/ Hydrocodone Bitart ([place] (5/325)) 1 tab Q6H PRN PO .MOD PAIN 4- 6 Last administered on 04/10/19 03:07; Admin Dose 1 TAB; Start 03/23/19 at 18:00 Miscellaneous Information 1 ea NOTE XX ; Start 03/23/19 at 18:00 Glucose (Glutose) 15 gm Q15M PRN PO DECREASED GLUCOSE; Start 03/23/19 at 18:00 Glucose (Glutose) 22.5 gm Q15M PRN PO DECREASED GLUCOSE; Start 03/23/19 at 18:00 Dextrose (D50w Syringe) 25 ml Q15M PRN IV DECREASED GLUCOSE; Start 03/23/19 at 18:00 Dextrose (D50w Syringe) 50 ml Q15M PRN IV DECREASED GLUCOSE; Start 03/23/19 at 18:00 Glucagon (Glucagen) 1 mg Q15M PRN IM DECREASED GLUCOSE; Start 03/23/19 at 18:00 Glucose (Glutose) 15 gm Q15M PRN BUCCAL DECREASED GLUCOSE; Start 03/23/19 at 18:00 Hydralazine HCl (Apresoline) 10 mg Q4H PRN IV FOR SBP>170; Start 03/26/19 at 03:30 Albuterol/ Ipratropium (Duoneb) 3 ml Q2H RESP THERAPY PRN HHN sob; Start 03/26/19 at 12:30 Allopurinol (Zyloprim) 300 mg DAILY PO Last administered on 04/10/19 09:06; Admin Dose 300 MG; Start 03/29/19 at 15:30 Furosemide (Lasix) 20 mg DAILY PO Last administered on 04/10/19 09:07; Admin Dose 20 MG; Start 04/02/19 at 09:00 Fluconazole (Diflucan) 100 mg DAILY PO Last administered on 04/10/19 09:06; Admin Dose 100 MG; Start 04/02/19 at 15:30 Acyclovir (Zovirax) 400 mg DAILY PO Last administered on 04/10/19 09:06; Admin Dose 400 MG; Start 04/03/19 at 09:00 Levofloxacin (Levaquin) 500 mg DAILY@06 PO Last administered on 04/11/19 05:44; Admin Dose 500 MG; Start 04/03/19 at 06:00 Al Hydrox/Mg Hydrox/Simethicone (Mag-Al Plus) 30 ml Q6H PRN PO GASTROINTESTINAL UPSET Last administered on 04/09/19 13:41; Admin Dose 30 ML; Start 04/02/19 at 18:30 Carvedilol (Coreg) 12.5 mg BID PO Last administered on 04/10/19 20:29; Admin Dose 12.5 MG; Start 04/02/19 at 21:00 Dexamethasone (Maxidex 0.1% Oph) 2 drop BID BOTH EYES Last administered on 04/10/19 09:08; Admin Dose 2 DROP; Start 04/03/19 at 21:00 Insulin Glargine (Lantus) 20 units DAILY@2000 SC Last administered on 04/10/19 20:36; Admin Dose 20 UNITS; Start 04/05/19 at 20:00 Lisinopril (Zestril) 20 mg BID PO Last administered on 04/10/19 20:28; Admin Dose 20 MG; Start 04/05/19 at 21:00 Vancomycin HCl (Vanco Iv Per Pharmacy) VANCOMYCIN PER PHARMACY PER PROTOCOL XX ; Start 04/10/19 at 16:00 Meropenem/Sodium Chloride 50 ml @ 100 mls/hr Q8 IVPB Last administered on 04/11/19 05:44; Admin Dose 100 MLS/HR; Start 04/10/19 at 17:00 Vancomycin HCl 1.25 gm/Sodium Chloride 250 ml @ 83.333 mls/ hr Q8H IVPB Last administered on 04/11/19 01:24; Admin Dose 83.333 MLS/HR; Start 04/11/19 at 01:00 Famotidine (Pepcid) 20 mg DAILY PO ; Start 04/11/19 at 09:00 Insulin Aspart (Novolog Insulin Pen) 7 unit WITH MEALS SC ; Start 04/11/19 at 07:50 Polyethylene Glycol (Miralax) 17 gm DAILY PO ; Start 04/11/19 at 09:00 Magnesium Oxide (Mag-Ox 400) 400 mg BID PO Last administered on 7/3/19at 20:27; Admin Dose 400 MG; Start 04/10/19 at 21:00 Miscellaneous Information (*Rx Drug Level Order Reminder*) VANCO TR LEVEL PRIOR... 1600 ONCE XX ; Start 04/11/19 at 16:00; Stop 04/11/19 at 16:01 Assessment/Plan Assessment/Plan (Daily) Pt with AML and s/p standard 7 +3 therapy. Awaiting return of blood counts. Spiked temp and now on broad spectrum abx. -F/u cxr -Cont Abx -No need to transfuse plts or pRBC today -Await recovery of marrow. Simon Salazar MD Hematology SIMON SALAZAR Apr 11, 2019 08:10
[2019-04-11] MEDS: DEXAMETHASONE 0.1% 5 ML OPH BOTH EYES SCH ×2 (08:28→20:40)
[2019-04-11] MEDS: FLUCONAZOLE 100 MG TAB PO SCH (08:29)
[2019-04-11] MEDS: FUROSEMIDE 20 MG TAB PO SCH (08:29)
[2019-04-11] MEDS: ALLOPURINOL 300 MG TAB PO SCH (08:29)
[2019-04-11] MEDS: MAGNESIUM OXIDE 400 MG TAB PO SCH ×2 (08:29→20:41)
[2019-04-11] MEDS: LISINOPRIL 20 MG TAB PO SCH ×2 (08:30→20:41)
[2019-04-11] MEDS: ACYCLOVIR 400 MG TAB PO SCH (08:30)
[2019-04-11] MEDS: FAMOTIDINE 20 MG TAB PO SCH (08:31)
[2019-04-11] MEDS: POLYETHYLENE GLYCOL 17 GM PACKET PO SCH (08:31)
--- NOTE | 2019-04-11 12:46 | CONS ---
Assessment/Plan Assessment/Plan Hospital Course (Demo Recall) ID PROGRESS NOTE CURRENT ABX: DAY # =>Doxycycline + Levaquin + Diflucan + Acyclovir s/p Vanco IV + Cefepime 24H INTERVAL SUMMARY * A/A/O, VSS, NAD, LOW GRADE TEMPERATURES INTERMITTENT PERSISTING * He reports 2 loose BMs today -- denies ABD pain * Blood cultures and urine culture negative to date * s/p 03/26/[address] guided left iliac bone marrow aspiration and biopsy. * Indwelling's: Right IJ Port-A-Cath DIAGNOSTIC IMAGING * 03/28/19 CXR: Chest x-ray revealed no acute pulmonary abnormality * 04/07/[address]: No acute findings PHYSICAL EXAMINATION: GENERAL: VSS, NAD HEENT: AT, NC, NECK: Supple, CHEST: Rise symmetrical HEART: Pulse RRR ABDOMEN: Benign EXTREMITIES: Warm, dry SKIN: No rash, no diaphoresis ID ASSESSMENT 54 yo M admit with: 1. Ongoing fevers likely secondary to underlying malignancy and neutropenia 2. AML, newly diagnosed 3. Diabetes 4. Hypertension 5. 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 Continue current ABX = PROPHYLAXIS per ID LABORATORY COURIER colleague notes * PRN => If fever increased to 101, start Vanco IV + Merrem and DC Doxycycline/Levaquin 2. Neutropenic precautions when indicated . Consultation Date/Type/Reason Admit Date/Time Mar 23, 2019 at 16:10 Initial Consult Date 03/24/19 Requesting Provider: KATIE PACE NP Date/Time of Note DATE: 04/11/19 TIME: 12:42 Exam/Review of Systems Exam Vitals Vital Signs Date Temp Pulse Resp B/P (MAP) Pulse Ox O2 O2 Flow FiO2 Time Delivery Rate 04/11/19 98.5 79 16 121/74 100 Room Air 07:29 (90) Intake and Output 04/10/19 04/10/19 04/11/19 1515:00 23:00 07:00 IntakeIntake Total 1080 ml 1020 ml 350 ml BalanceBalance 1080 ml 1020 ml 350 ml Results Result Diagram: 04/11/19 0432 04/11/19 043 Results 24hrs Laboratory Tests Test 04/10/19 13:04 04/10/19 17:28 04/10/19 20:32 04/11/19 01:43 Bedside Glucose 228 H 226 H 211 151 Test 04/11/19 04:32 04/11/19 08:22 White Blood Count 0.5 #L Red Blood Count 2.72 L Hemoglobin 8.5 L Hematocrit 23.6 L Mean Corpuscular 86.8 Volume Mean Corpuscular 31.3 Hemoglobin Mean Corpuscular 36.0 Hemoglobin Concent Red Cell Distribution 12.5 Width Platelet Count 19 #*L Mean Platelet Volume 10.0 Immature Granulocytes 0.000 L % Neutrophils % Lymphocytes % Lymphocytes % 99 H (Manual) Monocytes % Monocytes % (Manual) 1 Eosinophils % Basophils % Nucleated Red Blood 0.0 Cells % Immature Granulocytes 0.000 # Neutrophils # Lymphocytes (Manual) 0.4 L Lymphocytes # Monocytes # Monocytes # (Manual) 0.0 L Eosinophils # Basophils # Nucleated Red Blood Cells # Platelet Estimate SIG DECREASED Polychromasia 3+ Poikilocytosis 1+ Anisocytosis 1+ Microcytosis 1+ Sodium Level 133 L Potassium Level 4.0 Chloride Level 98 Carbon Dioxide Level 23 Anion Gap 12 Blood Urea Nitrogen 12 Creatinine 0.58 L Est Glomerular > 60 Filtrat Rate mL/min Glucose Level 123 Uric Acid 1.6 L Calcium Level 8.2 L Total Bilirubin 0.5 Direct Bilirubin 0.00 Indirect Bilirubin 0.5 Aspartate Amino 24 # Transf (AST/SGOT) Alanine 86 H Aminotransferase (ALT /SGPT) Alkaline Phosphatase 109 # Lactate Dehydrogenase 300 L Total Protein 6.5 Albumin 3.2 L Globulin 3.30 H Albumin/Globulin 0.96 Ratio Thyroid Stimulating 2.720 Hormone (TSH) Bedside Glucose 125 Medications Medication Current Medications Insulin Aspart (Novolog Insulin Pen) NOVOLOG *MILD* ALGORI... WITH MEALS BEDTIME SC Last administered on 04/10/19 20:37; Admin Dose 1 UNIT; Start 03/23/19 at 18:00 IV Flush (NS 3 ml) 3 ml PER PROTOCOL IV Last administered on 04/08/19 05:29; Admin Dose 3 ML; Start 03/23/19 at 18:00 Ondansetron HCl (Zofran Inj) 4 mg Q6H PRN IV NAUSEA/VOMITING Last administered on 7/2/19at 17:54; Admin Dose 4 MG; Start 03/23/19 at 18:00 Acetaminophen (Tylenol Tab) 650 mg Q6H PRN PO .PAIN 1-3 OR TEMP Last administered on 04/10/19 09:05; Admin Dose 650 MG; Start 03/23/19 at 18:00 Acetaminophen/ Hydrocodone Bitart ([place] (5/325)) 1 tab Q6H PRN PO .MOD PAIN 4- 6 Last administered on 04/10/19 03:07; Admin Dose 1 TAB; Start 03/23/19 at 18:00 Miscellaneous Information 1 ea NOTE XX ; Start 03/23/19 at 18:00 Glucose (Glutose) 15 gm Q15M PRN PO DECREASED GLUCOSE; Start 03/23/19 at 18:00 Glucose (Glutose) 22.5 gm Q15M PRN PO DECREASED GLUCOSE; Start 03/23/19 at 18:00 Dextrose (D50w Syringe) 25 ml Q15M PRN IV DECREASED GLUCOSE; Start 03/23/19 at 18:00 Dextrose (D50w Syringe) 50 ml Q15M PRN IV DECREASED GLUCOSE; Start 03/23/19 at 18:00 Glucagon (Glucagen) 1 mg Q15M PRN IM DECREASED GLUCOSE; Start 03/23/19 at 18:00 Glucose (Glutose) 15 gm Q15M PRN BUCCAL DECREASED GLUCOSE; Start 03/23/19 at 18:00 Hydralazine HCl (Apresoline) 10 mg Q4H PRN IV FOR SBP>170; Start 03/26/19 at 03:30 Albuterol/ Ipratropium (Duoneb) 3 ml Q2H RESP THERAPY PRN HHN sob; Start 03/26/19 at 12:30 Furosemide (Lasix) 20 mg DAILY PO Last administered on 04/11/19 08:29; Admin Dose 20 MG; Start 04/02/19 at 09:00 Fluconazole (Diflucan) 100 mg DAILY PO Last administered on 04/11/19 08:29; Admin Dose 100 MG; Start 04/02/19 at 15:30 Acyclovir (Zovirax) 400 mg DAILY PO Last administered on 04/11/19at 08:30; Admin Dose 400 MG; Start 04/03/19 at 09:00 Levofloxacin (Levaquin) 500 mg DAILY@06 PO Last administered on 04/11/19 05:44; Admin Dose 500 MG; Start 04/03/19 at 06:00 Al Hydrox/Mg Hydrox/Simethicone (Mag-Al Plus) 30 ml Q6H PRN PO GASTROINTESTINAL UPSET Last administered on 04/09/19 13:41; Admin Dose 30 ML; Start 04/02/19 at 18:30 Carvedilol (Coreg) 12.5 mg BID PO Last administered on 04/11/19 08:30; Admin Dose 12.5 MG; Start 04/02/19 at 21:00 Dexamethasone (Maxidex 0.1% Oph) 2 drop BID BOTH EYES Last administered on 04/10/19 09:08; Admin Dose 2 DROP; Start 04/03/19 at 21:00 Insulin Glargine (Lantus) 20 units DAILY@2000 SC Last administered on 04/10/19 20:36; Admin Dose 20 UNITS; Start 04/05/19 at 20:00 Lisinopril (Zestril) 20 mg BID PO Last administered on 04/11/19 08:30; Admin Dose 20 MG; Start 04/05/19 at 21:00 Vancomycin HCl (Vanco Iv Per Pharmacy) VANCOMYCIN PER PHARMACY PER PROTOCOL XX ; Start 04/10/19 at 16:00 Meropenem/Sodium Chloride 50 ml @ 100 mls/hr Q8 IVPB Last administered on 04/11/19 05:44; Admin Dose 100 MLS/HR; Start 04/10/19 at 17:00 Vancomycin HCl 1.25 gm/Sodium Chloride 250 ml @ 83.333 mls/ hr Q8H IVPB Last administered on 04/11/19 08:28; Admin Dose 83.333 MLS/HR; Start 04/11/19 at 01:00 Famotidine (Pepcid) 20 mg DAILY PO Last administered on 04/11/19 08:31; Admin Dose 20 MG; Start 04/11/19 at 09:00 Insulin Aspart (Novolog Insulin Pen) 7 unit WITH MEALS SC Last administered on 04/11/19 08:27; Admin Dose 7 UNIT; Start 04/11/19 at 07:50 Polyethylene Glycol (Miralax) 17 gm DAILY PO ; Start 04/11/19 at 09:00 Magnesium Oxide (Mag-Ox 400) 400 mg BID PO Last administered on 04/11/19at 08:29; Admin Dose 400 MG; Start 04/10/19 at 21:00 Miscellaneous Information (*Rx Drug Level Order Reminder*) VANCO TR LEVEL PRIOR... 1600 ONCE XX ; Start 04/11/19 at 16:00; Stop 04/11/19 at 16:01 LIVIA OSMAN NP Apr 11, 2019 12:46
[2019-04-11 14:27] VITALS: BP 120/80; PULSE 80; RESP 18
--- NOTE | 2019-04-11 15:06 | PN ---
Date/Time of Note Date/Time of Note DATE: 04/11/19 TIME: 15:04 Assessment/Plan VTE Prophylaxis Risk score (from Ns)>0 risk: 5 SCD applied (from [facility] [place] Yes SCD contraindicated: low risk/ambulating Pharmacological prophylaxis: NA/contraindicated Pharm contraindication: low risk/ambulating Lines/Catheters IV C[facility] Type (from [facility] [place] line still needed: Yes Urinary Cath still in place: No Assessment/Plan Hospital Course A/P 1) AML; sp induction chemo; monitor 2) Neutropenic fever; cont atb/antiviral 3) CMY; EF=35%. ischemic vs nonischemic; cont bb/acei 4) DM [id number] 5) Metabolic syndrome 6) Pancytopenia -aml vs chemo induced 7) Loose bm's: antibiotic induced/ Benign diarrhea. stool softners decreased. S: 04/10 sp transfusion. fever noted 04/11 no events; low grade fever O: vss except fever PE no pallor reg s1s2 no mrg ctab; port c/d/i bs+ nt nd no r r g no edema Result Diagram: 04/11/192 04/11/19 0432 Results 24hrs Laboratory Tests Test 04/10/19 17:28 04/10/19 20:32 04/11/19 01:43 04/11/19 04:32 Bedside Glucose 226 H 211 151 White Blood Count 0.5 #L Red Blood Count 2.72 L Hemoglobin 8.5 L Hematocrit 23.6 L Mean Corpuscular 86.8 Volume Mean Corpuscular 31.3 Hemoglobin Mean Corpuscular 36.0 Hemoglobin Concent Red Cell Distribution 12.5 Width Platelet Count 19 #*L Mean Platelet Volume 10.0 Immature Granulocytes 0.000 L % Neutrophils % Lymphocytes % Lymphocytes % 99 H (Manual) Monocytes % Monocytes % (Manual) 1 Eosinophils % Basophils % Nucleated Red Blood 0.0 Cells % Immature Granulocytes 0.000 # Neutrophils # Lymphocytes (Manual) 0.4 L Lymphocytes # Monocytes # Monocytes # (Manual) 0.0 L Eosinophils # Basophils # Nucleated Red Blood Cells # Platelet Estimate SIG DECREASED Polychromasia 3+ Poikilocytosis 1+ Anisocytosis 1+ Microcytosis 1+ Sodium Level 133 L Potassium Level 4.0 Chloride Level 98 Carbon Dioxide Level 23 Anion Gap 12 Blood Urea Nitrogen 12 Creatinine 0.58 L Est Glomerular > 60 Filtrat Rate mL/min Glucose Level 123 Uric Acid 1.6 L Calcium Level 8.2 L Total Bilirubin 0.5 Direct Bilirubin 0.00 Indirect Bilirubin 0.5 Aspartate Amino 24 # Transf (AST/SGOT) Alanine 86 H Aminotransferase (ALT /SGPT) Alkaline Phosphatase 109 # Lactate Dehydrogenase 300 L Total Protein 6.5 Albumin 3.2 L Globulin 3.30 H Albumin/Globulin 0.96 Ratio Thyroid Stimulating 2.720 Hormone (TSH) Test 04/11/19 08:22 04/11/19 12:39 Bedside Glucose 125 199 Exam/Review of Systems Exam Vitals Vital Signs Date Temp Pulse Resp B/P (MAP) Pulse Ox O2 O2 Flow FiO2 Time Delivery Rate 04/11/19 98.4 80 18 120/80 99 14:27 (93) 04/11/19 Room Air 07:29 Intake and Output 04/10/19 04/10/19 04/11/19 1414:59 22:59 06:59 IntakeIntake Total 1080 ml 1020 ml 350 ml BalanceBalance 1080 ml 1020 ml 350 ml Results Results 24hrs Laboratory Tests Test 04/10/19 17:28 04/10/19 20:32 04/11/19 01:43 04/11/19 04:32 Bedside Glucose 226 H 211 151 White Blood Count 0.5 #L Red Blood Count 2.72 L Hemoglobin 8.5 L Hematocrit 23.6 L Mean Corpuscular 86.8 Volume Mean Corpuscular 31.3 Hemoglobin Mean Corpuscular 36.0 Hemoglobin Concent Red Cell Distribution 12.5 Width Platelet Count 19 #*L Mean Platelet Volume 10.0 Immature Granulocytes 0.000 L % Neutrophils % Lymphocytes % Lymphocytes % 99 H (Manual) Monocytes % Monocytes % (Manual) 1 Eosinophils % Basophils % Nucleated Red Blood 0.0 Cells % Immature Granulocytes 0.000 # Neutrophils # Lymphocytes (Manual) 0.4 L Lymphocytes # Monocytes # Monocytes # (Manual) 0.0 L Eosinophils # Basophils # Nucleated Red Blood Cells # Platelet Estimate SIG DECREASED Polychromasia 3+ Poikilocytosis 1+ Anisocytosis 1+ Microcytosis 1+ Sodium Level 133 L Potassium Level 4.0 Chloride Level 98 Carbon Dioxide Level 23 Anion Gap 12 Blood Urea Nitrogen 12 Creatinine 0.58 L Est Glomerular > 60 Filtrat Rate mL/min Glucose Level 123 Uric Acid 1.6 L Calcium Level 8.2 L Total Bilirubin 0.5 Direct Bilirubin 0.00 Indirect Bilirubin 0.5 Aspartate Amino 24 # Transf (AST/SGOT) Alanine 86 H Aminotransferase (ALT /SGPT) Alkaline Phosphatase 109 # Lactate Dehydrogenase 300 L Total Protein 6.5 Albumin 3.2 L Globulin 3.30 H Albumin/Globulin 0.96 Ratio Thyroid Stimulating 2.720 Hormone (TSH) Test 04/11/19 08:22 04/11/19 12:39 Bedside Glucose 125 199 Medications Medication Current Medications Insulin Aspart (Novolog Insulin Pen) NOVOLOG *MILD* ALGORI... WITH MEALS BEDTIME SC Last administered on 04/11/19 12:46; Admin Dose 2 UNIT; Start 03/23/19 at 18:00 IV Flush (NS 3 ml) 3 ml PER PROTOCOL IV Last administered on 04/08/19 05:29; Admin Dose 3 ML; Start 03/23/19 at 18:00 Ondansetron HCl (Zofran Inj) 4 mg Q6H PRN IV NAUSEA/VOMITING Last administered on 04/09/19 17:54; Admin Dose 4 MG; Start 03/23/19 at 18:00 Acetaminophen (Tylenol Tab) 650 mg Q6H PRN PO .PAIN 1-3 OR TEMP Last ad ministered on 04/10/19 09:05; Admin Dose 650 MG; Start 03/23/19 at 18:00 Acetaminophen/ Hydrocodone Bitart ([place] (5/325)) 1 tab Q6H PRN PO .MOD PAIN 4- 6 Last administered on 04/10/19 03:07; Admin Dose 1 TAB; Start 03/23/19 at 18:00 Miscellaneous Information 1 ea NOTE XX ; Start 03/23/19 at 18:00 Glucose (Glutose) 15 gm Q15M PRN PO DECREASED GLUCOSE; Start 03/23/19 at 18:00 Glucose (Glutose) 22.5 gm Q15M PRN PO DECREASED GLUCOSE; Start 03/23/19 at 18:00 Dextrose (D50w Syringe) 25 ml Q15M PRN IV DECREASED GLUCOSE; Start 03/23/19 at 18:00 Dextrose (D50w Syringe) 50 ml Q15M PRN IV DECREASED GLUCOSE; Start 03/23/19 at 18:00 Glucagon (Glucagen) 1 mg Q15M PRN IM DECREASED GLUCOSE; Start 03/23/19 at 18:00 Glucose (Glutose) 15 gm Q15M PRN BUCCAL DECREASED GLUCOSE; Start 03/23/19 at 18:00 Hydralazine HCl (Apresoline) 10 mg Q4H PRN IV FOR SBP>170; Start 03/26/19 at 03:30 Albuterol/ Ipratropium (Duoneb) 3 ml Q2H RESP THERAPY PRN HHN sob; Start 03/26/19 at 12:30 Furosemide (Lasix) 20 mg DAILY PO Last administered on 04/11/19 08:29; Admin Dose 20 MG; Start 04/02/19 at 09:00 Fluconazole (Diflucan) 100 mg DAILY PO Last administered on 04/11/19 08:29; Admin Dose 100 MG; Start 04/02/19 at 15:30 Acyclovir (Zovirax) 400 mg DAILY PO Last administered on 04/11/19 08:30; Admin Dose 400 MG; Start 04/03/19 at 09:00 Levofloxacin (Levaquin) 500 mg DAILY@06 PO Last administered on 04/11/19 05:44; Admin Dose 500 MG; Start 04/03/19 at 06:00 Al Hydrox/Mg Hydrox/Simethicone (Mag-Al Plus) 30 ml Q6H PRN PO GASTROINTESTINAL UPSET Last administered on 04/09/19 13:41; Admin Dose 30 ML; Start 04/02/19 at 18:30 Carvedilol (Coreg) 12.5 mg BID PO Last administered on 04/11/19 08:30; Admin Dose 12.5 MG; Start 04/02/19 at 21:00 Dexamethasone (Maxidex 0.1% Oph) 2 drop BID BOTH EYES Last administered on 04/10/19 09:08; Admin Dose 2 DROP; Start 04/03/19 at 21:00 Insulin Glargine (Lantus) 20 units DAILY@2000 SC Last administered on 04/10/19 20:36; Admin Dose 20 UNITS; Start 04/05/19 at 20:00 Lisinopril (Zestril) 20 mg BID PO Last administered on 04/11/19 08:30; Admin Dose 20 MG; Start 04/05/19 at 21:00 Vancomycin HCl (Vanco Iv Per Pharmacy) VANCOMYCIN PER PHARMACY PER PROTOCOL XX ; Start 04/10/19 at 16:00 Meropenem/Sodium Chloride 50 ml @ 100 mls/hr Q8 IVPB Last administered on 04/11/19at 13:53; Admin Dose 100 MLS/HR; Start 04/10/19 at 17:00 Vancomycin HCl 1.25 gm/Sodium Chloride 250 ml @ 83.333 mls/ hr Q8H IVPB Last administered on 04/11/19at 08:28; Admin Dose 83.333 MLS/HR; Start 04/11/19 at 01:00 Famotidine (Pepcid) 20 mg DAILY PO Last administered on 04/11/19at 08:31; Admin Dose 20 MG; Start 04/11/19 at 09:00 Insulin Aspart (Novolog Insulin Pen) 7 unit WITH MEALS SC Last administered on 04/11/19at 12:47; Admin Dose 7 UNIT; Start 04/11/19 at 07:50 Polyethylene Glycol (Miralax) 17 gm DAILY PO ; Start 04/11/19 at 09:00 Magnesium Oxide (Mag-Ox 400) 400 mg BID PO Last administered on 04/11/19at 08:29; Admin Dose 400 MG; Start 04/10/19 at 21:00 Miscellaneous Information (*Rx Drug Level Order Reminder*) VANCO TR LEVEL PRIOR... 1600 ONCE XX ; Start 04/11/19 at 16:00; Stop 04/11/19 at 16:01 ESPERANZA FAUST MD Apr 11, 2019 15:05
[2019-04-11 19:25] VITALS: BP 138/84; PULSE 79; RESP 20
[2019-04-11] MEDS: INSULIN GLARGINE [LANTus] (100 UNITS/ML) SYG SC SCH (20:44)
[2019-04-12] VITALS (8 sets, daily range): BP systolic 121–139; BP diastolic 59–78; PULSE 68–99; RESP 18–20
[2019-04-12] MEDS: VANCOMYCIN HCL 1.5 GM in SOD CHLORIDE 0.9% 250 ML IVPB SCH ×3 (00:56→17:50)
[2019-04-12] MEDS: MEROPENEM 500MG/50 ML (PMX) 50 ML IVPB SCH ×3 (06:00→22:45)
[2019-04-12] MEDS: LEVOFLOXACIN 500 MG TAB PO SCH (06:00)
--- NOTE | 2019-04-12 06:17 | PN ---
DATE: 04/10/2019 HEMATOLOGY PROGRESS NOTE SUBJECTIVE: The patient states he is feeling well now. He did have temperature spike early today, b ut this was not associated with any shaking chills. The patient denies headaches or dizziness. He does not complain of any neck stiffness. He has had n o cough or shortness of breath. No dysphagia or odynophagia. No abdominal pain or nausea or vomitin g. No diarrhea. OBJECTIVE: GENERAL: The patient is a well-developed, well-nourished male who is in no acute distress. VITAL SIGNS: T-max 102.1, now 99.1, pulse 82 per minute and regular, respirations 18, blood pressure 119/68, pulse oximetry 95% on room air. SKIN: Scattered ecchymosis, no petechiae or rashes. HEENT: Normocephalic. No evidence of trauma. Pupils equal, round, reactive to light and accommodat ion. Sclerae nonicteric. Oral mucosa is moist without lesions. There is no conjunctival irritation . NECK: Supple. No jugular venous distention or thyroid enlargement. CHEST: Clear to auscultation and percussion. No rhonchi, wheezes, rales or rubs. There is a double lumen [place] catheter in the right anterior chest wall. There is no erythema along the subcutaneou s tunnel or at the insertion site. NODES: No palpable lymphadenopathy in any lymph node bearing area. HEART: Regular sinus rhythm. No S3, S4 or murmurs. No rubs. ABDOMEN: Soft, no masses, no ascites. EXTREMITIES: Good range of motion. No clubbing, no edema or cyanosis. No palpable cords or Homans sign. NEUROLOGIC: Normal. LABORATORY DATA: Sodium 129, potassium 4.1, BUN 11, creatinine 0.56. Uric acid 1.7. White count 20 0 with an absolute neutrophil count of 0, hemoglobin 8.5, hematocrit 23.4, platelet count 24,000. ASSESSMENT: 1. Acute myelogenous leukemia. Now on day 11 status post initiation of induction chemotherapy. 2. Pancytopenia secondary to #1. 3. Neutropenic fever. Cultures have been obtained. The patient has now been seen by infectious disease and has been starte d on meropenem and vancomycin. I have explained the situation in detail to the patient and his . I have explained that this is a typical event in the treatment of acute leukemia and that often a bacterial source for infection is not found. We will continue antibiotic therapy until the patient becomes afebrile. I have told the patient that frequently fever will resolve when the white count does rise. No platelet transfusions or red blood cell transfusion at this time. We will hold platelet transfusi ons unless platelet count drops below 10,000 or patient has clinical bleeding. Dictated By: ERIN COLLADO MD SR/NTS Conf#: [id number] DID#: [id number] CC: KURTIS WHITTAKER MD;*EndCC*
[2019-04-12] MEDS: INSULIN ASPART [NOVOLOG] 3 ML PEN SC SCH ×7 (07:50→21:37)
[2019-04-12] MEDS: FAMOTIDINE 20 MG TAB PO SCH (09:11)
[2019-04-12] MEDS: MAGNESIUM OXIDE 400 MG TAB PO SCH ×2 (09:11→21:32)
[2019-04-12] MEDS: ACYCLOVIR 400 MG TAB PO SCH (09:13)
[2019-04-12] MEDS: FLUCONAZOLE 100 MG TAB PO SCH (09:13)
[2019-04-12] MEDS: FUROSEMIDE 20 MG TAB PO SCH (09:13)
[2019-04-12] MEDS: LISINOPRIL 20 MG TAB PO SCH ×2 (09:14→21:33)
[2019-04-12] MEDS: POLYETHYLENE GLYCOL 17 GM PACKET PO SCH (09:14)
[2019-04-12] MEDS: DEXAMETHASONE 0.1% 5 ML OPH BOTH EYES SCH ×2 (09:15→21:33)
--- NOTE | 2019-04-12 11:38 | CONS ---
Assessment/Plan Assessment/Plan Hospital Course (Demo Recall) ID PROGRESS NOTE CURRENT ABX: DAY # =>Doxycycline + Levaquin + Diflucan + Acyclovir s/p Vanco IV + Cefepime 04/12/19 0436 04/12/19 0436 POST CHEMO INDUCTION=> DAY # 11 24H INTERVAL SUMMARY * A/A/O, VSS, NAD, no fevers recorded 24H, denies fever/chills/rigors today * Still with loose BMs yesterday and today -- denies ABD pain * Blood cultures and urine culture negative to date * s/p 03/26/[address] guided left iliac bone marrow aspiration and biopsy. * Indwelling's: Right IJ Port-A-Cath DIAGNOSTIC IMAGING * 03/28/19 CXR: Chest x-ray revealed no acute pulmonary abnormality * 04/07/[address]: No acute findings PHYSICAL EXAMINATION: GENERAL: VSS, NAD HEENT: AT, NC, NECK: Supple, CHEST: Rise symmetrical HEART: Pulse RRR ABDOMEN: Benign EXTREMITIES: Warm, dry SKIN: No rash, no diaphoresis ID ASSESSMENT 54 yo M admit with: 1. Ongoing fevers likely secondary to underlying malignancy and neutropenia 2. AML, newly diagnosed 3. Diabetes 4. Hypertension 5. 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 Neutropenic precautions when indicated . Consultation Date/Type/Reason Admit Date/Time Mar 23, 2019 at 16:10 Initial Consult Date 03/24/19 Requesting Provider: KATIE PACE NP Date/Time of Note DATE: 04/12/19 TIME: 11:36 Exam/Review of Systems Exam Vitals Vital Signs Date Temp Pulse Resp B/P (MAP) Pulse Ox O2 O2 Flow FiO2 Time Delivery Rate 04/12/19 98.6 76 18 130/78 98 Room Air 07:17 (95) Intake and Output 04/11/19 04/11/19 04/12/19 1414:59 22:59 06:59 IntakeIntake Total 550 ml 350 ml 300 ml BalanceBalance 550 ml 350 ml 300 ml Results Result Diagram: 04/12/19 0436 04/12/19 0436 Results 24hrs Laboratory Tests Test 04/11/19 12:39 04/11/19 15:51 04/11/19 18:01 04/11/19 20:39 Bedside Glucose 199 141 166 Vancomycin Level 9.1 L Trough Test 04/12/19 04:36 04/12/19 08:09 White Blood Count 0.3 #L Red Blood Count 2.47 L Hemoglobin 7.6 L Hematocrit 21.4 L Mean Corpuscular 86.6 Volume Mean Corpuscular 30.8 Hemoglobin Mean Corpuscular 35.5 Hemoglobin Concent Red Cell Distribution 12.3 Width Platelet Count 12 #*L Mean Platelet Volume 10.0 Immature Granulocytes 2.900 H % Neutrophils % Lymphocytes % Lymphocytes % 100 H (Manual) Monocytes % Monocytes % (Manual) 1 Eosinophils % Basophils % Nucleated Red Blood 0.0 Cells % Immature Granulocytes 0.010 # Neutrophils # Lymphocytes (Manual) 0.3 L Lymphocytes # Monocytes # Monocytes # (Manual) 0.0 L Eosinophils # Basophils # Nucleated Red Blood Cells # Platelet Estimate SIG DECREASED Polychromasia 1+ Poikilocytosis 1+ Anisocytosis 1+ Microcytosis 1+ Sodium Level 134 L Potassium Level 3.7 Chloride Level 103 Carbon Dioxide Level 23 Anion Gap 8 Blood Urea Nitrogen 9 Creatinine 0.50 L Est Glomerular > 60 Filtrat Rate mL/min Glucose Level 89 Uric Acid 1.8 L Calcium Level 7.6 L Total Bilirubin 0.5 Direct Bilirubin 0.00 Indirect Bilirubin 0.5 Aspartate Amino 15 Transf (AST/SGOT) Alanine 65 Aminotransferase (ALT /SGPT) Alkaline Phosphatase 97 Lactate Dehydrogenase 262 L Total Protein 6.2 Albumin 2.9 L Globulin 3.30 H Albumin/Globulin 0.87 Ratio Bedside Glucose 111 Medications Medication Current Medications Insulin Aspart (Novolog Insulin Pen) NOVOLOG *MILD* ALGORI... WITH MEALS BEDTIME SC Last administered on 04/11/19at 18:04; Admin Dose 1 UNIT; Start 03/23/19 at 18:00 IV Flush (NS 3 ml) 3 ml PER PROTOCOL IV Last administered on 04/08/19at 05:29; Admin Dose 3 ML; Start 03/23/19 at 18:00 Ondansetron HCl (Zofran Inj) 4 mg Q6H PRN IV NAUSEA/VOMITING Last administered on 04/09/19 17:54; Admin Dose 4 MG; Start 03/23/19 at 18:00 Acetaminophen (Tylenol Tab) 650 mg Q6H PRN PO .PAIN 1-3 OR TEMP Last administered on 04/10/19 09:05; Admin Dose 650 MG; Start 03/23/19 at 18:00 Acetaminophen/ Hydrocodone Bitart ([place] (5/325)) 1 tab Q6H PRN PO .MOD PAIN 4- 6 Last administered on 04/10/19 03:07; Admin Dose 1 TAB; Start 03/23/19 at 18:00 Miscellaneous Information 1 ea NOTE XX ; Start 03/23/19 at 18:00 Glucose (Glutose) 15 gm Q15M PRN PO DECREASED GLUCOSE; Start 03/23/19 at 18:00 Glucose (Glutose) 22.5 gm Q15M PRN PO DECREASED GLUCOSE; Start 03/23/19 at 18:00 Dextrose (D50w Syringe) 25 ml Q15M PRN IV DECREASED GLUCOSE; Start 03/23/19 at 18:00 Dextrose (D50w Syringe) 50 ml Q15M PRN IV DECREASED GLUCOSE; Start 03/23/19 at 18:00 Glucagon (Glucagen) 1 mg Q15M PRN IM DECREASED GLUCOSE; Start 03/23/19 at 18:00 Glucose (Glutose) 15 gm Q15M PRN BUCCAL DECREASED GLUCOSE; Start 03/23/19 at 18:00 Hydralazine HCl (Apresoline) 10 mg Q4H PRN IV FOR SBP>170; Start 03/26/19 at 03:30 Albuterol/ Ipratropium (Duoneb) 3 ml Q2H RESP THERAPY PRN HHN sob; Start 03/26/19 at 12:30 Furosemide (Lasix) 20 mg DAILY PO Last administered on 04/12/19 09:13; Admin Dose 20 MG; Start 04/02/19 at 09:00 Fluconazole (Diflucan) 100 mg DAILY PO Last administered on 04/12/19 09:13; Admin Dose 100 MG; Start 04/02/19 at 15:30 Acyclovir (Zovirax) 400 mg DAILY PO Last administered on 04/12/19 09:13; Admin Dose 400 MG; Start 04/03/19 at 09:00 Levofloxacin (Levaquin) 500 mg DAILY@06 PO Last administered on 04/12/19 06:00; Admin Dose 500 MG; Start 04/03/19 at 06:00 Al Hydrox/Mg Hydrox/Simethicone (Mag-Al Plus) 30 ml Q6H PRN PO GASTROINTESTINAL UPSET Last administered on 04/09/19 13:41; Admin Dose 30 ML; Start 04/02/19 at 18:30 Carvedilol (Coreg) 12.5 mg BID PO Last administered on 04/12/19 09:16; Admin Dose 12.5 MG; Start 04/02/19 at 21:00 Dexamethasone (Maxidex 0.1% Oph) 2 drop BID BOTH EYES Last administered on 04/12/19 09:15; Admin Dose 2 DROP; Start 04/03/19 at 21:00 Insulin Glargine (Lantus) 20 units DAILY@2000 SC Last administered on 04/11/19 20:44; Admin Dose 20 UNITS; Start 04/05/19 at 20:00 Lisinopril (Zestril) 20 mg BID PO Last administered on 04/12/19 09:14; Admin Dose 20 MG; Start 04/05/19 at 21:00 Vancomycin HCl (Vanco Iv Per Pharmacy) VANCOMYCIN PER PHARMACY PER PROTOCOL XX ; Start 04/10/19 at 16:00 Meropenem/Sodium Chloride 50 ml @ 100 mls/hr Q8 IVPB Last administered on 04/12/19 06:00; Admin Dose 100 MLS/HR; Start 04/10/19 at 17:00 Famotidine (Pepcid) 20 mg DAILY PO Last administered on 04/12/19 09:11; Admin Dose 20 MG; Start 04/11/19 at 09:00 Insulin Aspart (Novolog Insulin Pen) 7 unit WITH MEALS SC Last administered on 04/12/19 09:10; Admin Dose 7 UNIT; Start 04/11/19 at 07:50 Polyethylene Glycol (Miralax) 17 gm DAILY PO Last administered on 04/12/19 09:14; Admin Dose 17 GM; Start 04/11/19 at 09:00 Magnesium Oxide (Mag-Ox 400) 400 mg BID PO Last administered on 7/5/19at 09:11; Admin Dose 400 MG; Start 04/10/19 at 21:00 Vancomycin HCl 1.5 gm/Sodium Chloride 250 ml @ 83.333 mls/ hr Q8H IVPB Last administered on 04/12/19at 11:04; Admin Dose 83.333 MLS/HR; Start 04/12/19 at 01:00 Miscellaneous Information (*Rx Drug Level Order Reminder*) VANCO TROUGH @ 2,300 ON... 2300 ONCE XX ; Start 04/12/19 at 23:00; Stop 04/12/19 at 23:01 LIVIA OSMAN NP Apr 12, 2019 11:38
--- NOTE | 2019-04-12 12:53 | CONS ---
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 Continue beta-lissette as heart rate and blood pressure permits Consultation Date/Type/Reason Admit Date/Time Mar 23, 2019 at 16:10 Initial Consult Date 03/24/19 Type of Consult Cardiology Requesting Provider: KATIE PACE NP Date/Time of Note DATE: 04/12/19 TIME: 12:52 24 HR Interval Summary Free Text/Dictation No shortness of breath, chest pain, dizziness or palpitations Exam/Review of Systems Vital Signs Vitals Vital Signs Date Temp Pulse Resp B/P (MAP) Pulse Ox O2 O2 Flow FiO2 Time Delivery Rate 04/12/19 98.6 76 18 130/78 98 Room Air 07:17 (95) Intake and Output 04/11/19 04/11/19 04/12/19 1515:00 23:00 07:00 IntakeIntake Total 550 ml 350 ml 300 ml BalanceBalance 550 ml 350 ml 300 ml Exam Constitutional: alert, oriented (No apparent distress) Head: normocephalic Respiratory: other (Coarse breath sounds bilaterally, no wheezing) Cardiovascular: regular rate and rhythm (S1-S2 heard) Gastrointestinal: soft, non-tender, bowel sounds Extremities: other (No edema) Labs Result Diagram: 04/12/19 0436 04/12/19 0436 Results 24hrs Laboratory Tests Test 04/11/19 15:51 04/11/19 18:01 04/11/19 20:39 04/12/19 04:36 Vancomycin Level 9.1 L Trough Bedside Glucose 141 166 White Blood Count 0.3 #L Red Blood Count 2.47 L Hemoglobin 7.6 L Hematocrit 21.4 L Mean Corpuscular 86.6 Volume Mean Corpuscular 30.8 Hemoglobin Mean Corpuscular 35.5 Hemoglobin Concent Red Cell Distribution 12.3 Width Platelet Count 12 #*L Mean Platelet Volume 10.0 Immature Granulocytes 2.900 H % Neutrophils % Lymphocytes % Lymphocytes % 100 H (Manual) Monocytes % Monocytes % (Manual) 1 Eosinophils % Basophils % Nucleated Red Blood 0.0 Cells % Immature Granulocytes 0.010 # Neutrophils # Lymphocytes (Manual) 0.3 L Lymphocytes # Monocytes # Monocytes # (Manual) 0.0 L Eosinophils # Basophils # Nucleated Red Blood Cells # Platelet Estimate SIG DECREASED Polychromasia 1+ Poikilocytosis 1+ Anisocytosis 1+ Microcytosis 1+ Sodium Level 134 L Potassium Level 3.7 Chloride Level 103 Carbon Dioxide Level 23 Anion Gap 8 Blood Urea Nitrogen 9 Creatinine 0.50 L Est Glomerular > 60 Filtrat Rate mL/min Glucose Level 89 Uric Acid 1.8 L Calcium Level 7.6 L Total Bilirubin 0.5 Direct Bilirubin 0.00 Indirect Bilirubin 0.5 Aspartate Amino 15 Transf (AST/SGOT) Alanine 65 Aminotransferase (ALT /SGPT) Alkaline Phosphatase 97 Lactate Dehydrogenase 262 L Total Protein 6.2 Albumin 2.9 L Globulin 3.30 H Albumin/Globulin 0.87 Ratio Test 04/12/19 08:09 04/12/19 12:40 Bedside Glucose 111 155 Medications Medications Current Medications Insulin Aspart (Novolog Insulin Pen) NOVOLOG *MILD* ALGORI... WITH MEALS BEDTIME SC Last administered on 04/12/19 12:43; Admin Dose 1 UNIT; Start 03/23/19 at 18:00 IV Flush (NS 3 ml) 3 ml PER PROTOCOL IV Last administered on 04/08/19 05:29; Admin Dose 3 ML; Start 03/23/19 at 18:00 Ondansetron HCl (Zofran Inj) 4 mg Q6H PRN IV NAUSEA/VOMITING Last administered on 04/09/19 17:54; Admin Dose 4 MG; Start 03/23/19 at 18:00 Acetaminophen (Tylenol Tab) 650 mg Q6H PRN PO .PAIN 1-3 OR TEMP Last administered on 04/10/19 09:05; Admin Dose 650 MG; Start 03/23/19 at 18:00 Acetaminophen/ Hydrocodone Bitart ([place] (5/325)) 1 tab Q6H PRN PO .MOD PAIN 4- 6 Last administered on 04/10/19 03:07; Admin Dose 1 TAB; Start 03/23/19 at 18:00 Miscellaneous Information 1 ea NOTE XX ; Start 03/23/19 at 18:00 Glucose (Glutose) 15 gm Q15M PRN PO DECREASED GLUCOSE; Start 03/23/19 at 18:00 Glucose (Glutose) 22.5 gm Q15M PRN PO DECREASED GLUCOSE; Start 03/23/19 at 18:00 Dextrose (D50w Syringe) 25 ml Q15M PRN IV DECREASED GLUCOSE; Start 03/23/19 at 18:00 Dextrose (D50w Syringe) 50 ml Q15M PRN IV DECREASED GLUCOSE; Start 03/23/19 at 18:00 Glucagon (Glucagen) 1 mg Q15M PRN IM DECREASED GLUCOSE; Start 03/23/19 at 18:00 Glucose (Glutose) 15 gm Q15M PRN BUCCAL DECREASED GLUCOSE; Start 03/23/19 at 18:00 Hydralazine HCl (Apresoline) 10 mg Q4H PRN IV FOR SBP>170; Start 03/26/19 at 03:30 Albuterol/ Ipratropium (Duoneb) 3 ml Q2H RESP THERAPY PRN HHN sob; Start 03/26/19 at 12:30 Furosemide (Lasix) 20 mg DAILY PO Last administered on 04/12/19 09:13; Admin Dose 20 MG; Start 04/02/19 at 09:00 Fluconazole (Diflucan) 100 mg DAILY PO Last administered on 04/12/19 09:13; Admin Dose 100 MG; Start 04/02/19 at 15:30 Acyclovir (Zovirax) 400 mg DAILY PO Last administered on 04/12/19 09:13; Admin Dose 400 MG; Start 04/03/19 at 09:00 Levofloxacin (Levaquin) 500 mg DAILY@06 PO Last administered on 04/12/19 06:00; Admin Dose 500 MG; Start 04/03/19 at 06:00 Al Hydrox/Mg Hydrox/Simethicone (Mag-Al Plus) 30 ml Q6H PRN PO GASTROINTESTINAL UPSET Last administered on 04/09/19 13:41; Admin Dose 30 ML; Start 04/02/19 at 18:30 Carvedilol (Coreg) 12.5 mg BID PO Last administered on 04/12/19 09:16; Admin Dose 12.5 MG; Start 04/02/19 at 21:00 Dexamethasone (Maxidex 0.1% Oph) 2 drop BID BOTH EYES Last administered on 04/12/19 09:15; Admin Dose 2 DROP; Start 04/03/19 at 21:00 Insulin Glargine (Lantus) 20 units DAILY@2000 SC Last administered on 04/11/19 20:44; Admin Dose 20 UNITS; Start 04/05/19 at 20:00 Lisinopril (Zestril) 20 mg BID PO Last administered on 04/12/19at 09:14; Admin Dose 20 MG; Start 04/05/19 at 21:00 Vancomycin HCl (Vanco Iv Per Pharmacy) VANCOMYCIN PER PHARMACY PER PROTOCOL XX ; Start 04/10/19 at 16:00 Meropenem/Sodium Chloride 50 ml @ 100 mls/hr Q8 IVPB Last administered on 04/12/19at 06:00; Admin Dose 100 MLS/HR; Start 04/10/19 at 17:00 Famotidine (Pepcid) 20 mg DAILY PO Last administered on 04/12/19 09:11; Admin Dose 20 MG; Start 04/11/19 at 09:00 Insulin Aspart (Novolog Insulin Pen) 7 unit WITH MEALS SC Last administered on 04/12/19 12:44; Admin Dose 7 UNIT; Start 04/11/19 at 07:50 Polyethylene Glycol (Miralax) 17 gm DAILY PO Last administered on 04/12/19 09:1 4; Admin Dose 17 GM; Start 04/11/19 at 09:00 Magnesium Oxide (Mag-Ox 400) 400 mg BID PO Last administered on 04/12/19 09:11; Admin Dose 400 MG; Start 04/10/19 at 21:00 Vancomycin HCl 1.5 gm/Sodium Chloride 250 ml @ 83.333 mls/ hr Q8H IVPB Last administered on 04/12/19 11:04; Admin Dose 83.333 MLS/HR; Start 04/12/19 at 01:00 Miscellaneous Information (*Rx Drug Level Order Reminder*) VANCO TROUGH @ 2,300 ON... 2300 ONCE XX ; Start 04/12/19 at 23:00; Stop 04/12/19 at 23:01 Jun Ayala DO Apr 12, 2019 12:53
--- NOTE | 2019-04-12 13:58 | PN ---
Date/Time of Note Date/Time of Note DATE: 04/12/19 TIME: 13:57 Assessment/Plan VTE Prophylaxis Risk score (from [facility] [place]0 risk: 6 SCD applied (from [facility] [place]): Yes SCD contraindicated: low risk/ambulating Pharmacological prophylaxis: NA/contraindicated Pharm contraindication: low risk/ambulating Lines/Catheters IV C[facility] Type (from [facility] [place] line still needed: Yes Urinary Cath still in place: No Assessment/Plan Hospital Course A/P 1) AML; sp induction chemo; monitor 2) Neutropenic fever; cont atb/antiviral 3) CMY; EF=35%. ischemic vs nonischemic; cont bb/acei 4) DM [id number] 5) Metabolic syndrome 6) Pancytopenia -aml vs chemo induced 7) Loose bm's: antibiotic induced/ Benign diarrhea. stool softners decreased. S: 04/10 sp transfusion. fever noted 04/11 no events; low grade fever 04/12 no diarrhea abdominal pain. Low-grade fever. O: vss except fever PE no pallor reg s1s2 no mrg ctab; port c/d/i bs+ nt nd no r r g no edema Result Diagram: 04/12/19 0436 04/12/19 0436 Results 24hrs Laboratory Tests Test 04/11/19 15:51 04/11/19 18:01 04/11/19 20:39 04/12/19 04:36 Vancomycin Level 9.1 L Trough Bedside Glucose 141 166 White Blood Count 0.3 #L Red Blood Count 2.47 L Hemoglobin 7.6 L Hematocrit 21.4 L Mean Corpuscular 86.6 Volume Mean Corpuscular 30.8 Hemoglobin Mean Corpuscular 35.5 Hemoglobin Concent Red Cell Distribution 12.3 Width Platelet Count 12 #*L Mean Platelet Volume 10.0 Immature Granulocytes 2.900 H % Neutrophils % Lymphocytes % Lymphocytes % 100 H (Manual) Monocytes % Monocytes % (Manual) 1 Eosinophils % Basophils % Nucleated Red Blood 0.0 Cells % Immature Granulocytes 0.010 # Neutrophils # Lymphocytes (Manual) 0.3 L Lymphocytes # Monocytes # Monocytes # (Manual) 0.0 L Eosinophils # Basophils # Nucleated Red Blood Cells # Platelet Estimate SIG DECREASED Polychromasia 1+ Poikilocytosis 1+ Anisocytosis 1+ Microcytosis 1+ Sodium Level 134 L Potassium Level 3.7 Chloride Level 103 Carbon Dioxide Level 23 Anion Gap 8 Blood Urea Nitrogen 9 Creatinine 0.50 L Est Glomerular > 60 Filtrat Rate mL/min Glucose Level 89 Uric Acid 1.8 L Calcium Level 7.6 L Total Bilirubin 0.5 Direct Bilirubin 0.00 Indirect Bilirubin 0.5 Aspartate Amino 15 Transf (AST/SGOT) Alanine 65 Aminotransferase (ALT /SGPT) Alkaline Phosphatase 97 Lactate Dehydrogenase 262 L Total Protein 6.2 Albumin 2.9 L Globulin 3.30 H Albumin/Globulin 0.87 Ratio Test 04/12/19 08:09 04/12/19 12:40 Bedside Glucose 111 155 Exam/Review of Systems Exam Vitals Vital Signs Date Temp Pulse Resp B/P (MAP) Pulse Ox O2 O2 Flow FiO2 Time Delivery Rate 04/12/19 98.6 76 18 130/78 98 Room Air 07:17 (95) Intake and Output 04/11/19 04/11/19 04/12/19 1515:00 23:00 07:00 IntakeIntake Total 550 ml 350 ml 300 ml BalanceBalance 550 ml 350 ml 300 ml Results Results 24hrs Laboratory Tests Test 04/11/19 15:51 04/11/19 18:01 04/11/19 20:39 04/12/19 04:36 Vancomycin Level 9.1 L Trough Bedside Glucose 141 166 White Blood Count 0.3 #L Red Blood Count 2.47 L Hemoglobin 7.6 L Hematocrit 21.4 L Mean Corpuscular 86.6 Volume Mean Corpuscular 30.8 Hemoglobin Mean Corpuscular 35.5 Hemoglobin Concent Red Cell Distribution 12.3 Width Platelet Count 12 #*L Mean Platelet Volume 10.0 Immature Granulocytes 2.900 H % Neutrophils % Lymphocytes % Lymphocytes % 100 H (Manual) Monocytes % Monocytes % (Manual) 1 Eosinophils % Basophils % Nucleated Red Blood 0.0 Cells % Immature Granulocytes 0.010 # Neutrophils # Lymphocytes (Manual) 0.3 L Lymphocytes # Monocytes # Monocytes # (Manual) 0.0 L Eosinophils # Basophils # Nucleated Red Blood Cells # Platelet Estimate SIG DECREASED Polychromasia 1+ Poikilocytosis 1+ Anisocytosis 1+ Microcytosis 1+ Sodium Level 134 L Potassium Level 3.7 Chloride Level 103 Carbon Dioxide Level 23 Anion Gap 8 Blood Urea Nitrogen 9 Creatinine 0.50 L Est Glomerular > 60 Filtrat Rate mL/min Glucose Level 89 Uric Acid 1.8 L Calcium Level 7.6 L Total Bilirubin 0.5 Direct Bilirubin 0.00 Indirect Bilirubin 0.5 Aspartate Amino 15 Transf (AST/SGOT) Alanine 65 Aminotransferase (ALT /SGPT) Alkaline Phosphatase 97 Lactate Dehydrogenase 262 L Total Protein 6.2 Albumin 2.9 L Globulin 3.30 H Albumin/Globulin 0.87 Ratio Test 04/12/19 08:09 04/12/19 12:40 Bedside Glucose 111 155 Medications Medication Current Medications Insulin Aspart (Novolog Insulin Pen) NOVOLOG *MILD* ALGORI... WITH MEALS BEDTIME SC Last administered on 04/12/19 12:43; Admin Dose 1 UNIT; Start 03/23/19 at 18:00 IV Flush (NS 3 ml) 3 ml PER PROTOCOL IV Last administered on 04/08/19 05:29; Admin Dose 3 ML; Start 03/23/19 at 18:00 Ondansetron HCl (Zofran Inj) 4 mg Q6H PRN IV NAUSEA/VOMITING Last administered on 04/09/19 17:54; Admin Dose 4 MG; Start 03/23/19 at 18:00 Acetaminophen (Tylenol Tab) 650 mg Q6H PRN PO .PAIN 1-3 OR TEMP Last administered on 04/10/19 09:05; Admin Dose 650 MG; Start 03/23/19 at 18:00 Acetaminophen/ Hydrocodone Bitart ([place] (5/325)) 1 tab Q6H PRN PO .MOD PAIN 4- 6 Last administered on 04/10/19 03:07; Admin Dose 1 TAB; Start 03/23/19 at 18:00 Miscellaneous Information 1 ea NOTE XX ; Start 03/23/19 at 18:00 Glucose (Glutose) 15 gm Q15M PRN PO DECREASED GLUCOSE; Start 03/23/19 at 18:00 Glucose (Glutose) 22.5 gm Q15M PRN PO DECREASED GLUCOSE; Start 03/23/19 at 18:00 Dextrose (D50w Syringe) 25 ml Q15M PRN IV DECREASED GLUCOSE; Start 03/23/19 at 18:00 Dextrose (D50w Syringe) 50 ml Q15M PRN IV DECREASED GLUCOSE; Start 03/23/19 at 18:00 Glucagon (Glucagen) 1 mg Q15M PRN IM DECREASED GLUCOSE; Start 03/23/19 at 18:00 Glucose (Glutose) 15 gm Q15M PRN BUCCAL DECREASED GLUCOSE; Start 03/23/19 at 18:00 Hydralazine HCl (Apresoline) 10 mg Q4H PRN IV FOR SBP>170; Start 03/26/19 at 03:30 Albuterol/ Ipratropium (Duoneb) 3 ml Q2H RESP THERAPY PRN HHN sob; Start 03/26/19 at 12:30 Furosemide (Lasix) 20 mg DAILY PO Last administered on 04/12/19 09:13; Admin Dose 20 MG; Start 04/02/19 at 09:00 Fluconazole (Diflucan) 100 mg DAILY PO Last administered on 04/12/19 09:13; Admin Dose 100 MG; Start 04/02/19 at 15:30 Acyclovir (Zovirax) 400 mg DAILY PO Last administered on 04/12/19 09:13; Admin Dose 400 MG; Start 04/03/19 at 09:00 Levofloxacin (Levaquin) 500 mg DAILY@06 PO Last administered on 04/12/19 06:00; Admin Dose 500 MG; Start 04/03/19 at 06:00 Al Hydrox/Mg Hydrox/Simethicone (Mag-Al Plus) 30 ml Q6H PRN PO GASTROINTESTINAL UPSET Last administered on 04/09/19 13:41; Admin Dose 30 ML; Start 04/02/19 at 18:30 Carvedilol (Coreg) 12.5 mg BID PO Last administered on 04/12/19 09:16; Admin Dose 12.5 MG; Start 04/02/19 at 21:00 Dexamethasone (Maxidex 0.1% Oph) 2 drop BID BOTH EYES Last administered on 04/12/19 09:15; Admin Dose 2 DROP; Start 04/03/19 at 21:00 Insulin Glargine (Lantus) 20 units DAILY@2000 SC Last administered on 04/11/19 20:44; Admin Dose 20 UNITS; Start 04/05/19 at 20:00 Lisinopril (Zestril) 20 mg BID PO Last administered on 04/12/19 09:14; Admin Dose 20 MG; Start 04/05/19 at 21:00 Vancomycin HCl (Vanco Iv Per Pharmacy) VANCOMYCIN PER PHARMACY PER PROTOCOL XX ; Start 04/10/19 at 16:00 Meropenem/Sodium Chloride 50 ml @ 100 mls/hr Q8 IVPB Last administered on 04/12/19 06:00; Admin Dose 100 MLS/HR; Start 04/10/19 at 17:00 Famotidine (Pepcid) 20 mg DAILY PO Last administered on 04/12/19 09:11; Admin Dose 20 MG; Start 04/11/19 at 09:00 Insulin Aspart (Novolog Insulin Pen) 7 unit WITH MEALS SC Last administered on 04/12/19at 12:44; Admin Dose 7 UNIT; Start 04/11/19 at 07:50 Polyethylene Glycol (Miralax) 17 gm DAILY PO Last administered on 04/12/19 09:14; Admin Dose 17 GM; Start 04/11/19 at 09:00 Magnesium Oxide (Mag-Ox 400) 400 mg BID PO Last administered on 04/12/19 09:11; Admin Dose 400 MG; Start 04/10/19 at 21:00 Vancomycin HCl 1.5 gm/Sodium Chloride 250 ml @ 83.333 mls/ hr Q8H IVPB Last administered on 04/12/19 11:04; Admin Dose 83.333 MLS/HR; Start 04/12/19 at 01:00 Miscellaneous Information (*Rx Drug Level Order Reminder*) VANCO TROUGH @ 2,300 ON... 2300 ONCE XX ; Start 04/12/19 at 23:00; Stop 04/12/19 at 23:01 ESPERANZA FAUST MD Apr 12, 2019 13:57
--- NOTE | 2019-04-12 14:17 | PN ---
Date/Time of Note Date/Time of Note DATE: 04/12/19 TIME: 14:15 Assessment/Plan VTE Prophylaxis Risk score (from [facility])>0 risk: 6 SCD applied (from [facility]): Yes Pharmacological prophylaxis: NA/contraindicated Pharm contraindication: thrombocytopenia Lines/Catheters IV Catheter Type (from [facility]): [place] [facility] line still needed: Yes Urinary Cath still in place: No Assessment/Plan Assessment/Plan 1. Acute myelogenous leukemia. Now on day 11 status post initiation of induction chemotherapy. 2. Pancytopenia secondary to #1. 3. Neutropenic fever. Cultures have been obtained. The patient has now been seen by infectious disease and been administered meropenem and vancomycin. I have explained the situation in detail to the patient and his . I have again explained that this is a typical event in the treatment of acute leukemia and that often a bacterial source for infection is not found. We will continue antibiotic therapy until the patient becomes afebrile. I have told the patient that frequently fever will resolve when the white count does rise. No platelet transfusions or red blood cell transfusion at this time, but I will recheck his platelet count this afternoon with administration of platelet count for platelet below 10,000 or patient has clinical bleeding. Result Diagram: 04/12/19 0436 04/12/19 0436 Results 24hrs Laboratory Tests Test 04/11/19 15:51 04/11/19 18:01 04/11/19 20:39 04/12/19 04:36 Vancomycin Level 9.1 L Trough Bedside Glucose 141 166 White Blood Count 0.3 #L Red Blood Count 2.47 L Hemoglobin 7.6 L Hematocrit 21.4 L Mean Corpuscular 86.6 Volume Mean Corpuscular 30.8 Hemoglobin Mean Corpuscular 35.5 Hemoglobin Concent Red Cell Distribution 12.3 Width Platelet Count 12 #*L Mean Platelet Volume 10.0 Immature Granulocytes 2.900 H % Neutrophils % Lymphocytes % Lymphocytes % 100 H (Manual) Monocytes % Monocytes % (Manual) 1 Eosinophils % Basophils % Nucleated Red Blood 0.0 Cells % Immature Granulocytes 0.010 # Neutrophils # Lymphocytes (Manual) 0.3 L Lymphocytes # Monocytes # Monocytes # (Manual) 0.0 L Eosinophils # Basophils # Nucleated Red Blood Cells # Platelet Estimate SIG DECREASED Polychromasia 1+ Poikilocytosis 1+ Anisocytosis 1+ Microcytosis 1+ Sodium Level 134 L Potassium Level 3.7 Chloride Level 103 Carbon Dioxide Level 23 Anion Gap 8 Blood Urea Nitrogen 9 Creatinine 0.50 L Est Glomerular > 60 Filtrat Rate mL/min Glucose Level 89 Uric Acid 1.8 L Calcium Level 7.6 L Total Bilirubin 0.5 Direct Bilirubin 0.00 Indirect Bilirubin 0.5 Aspartate Amino 15 Transf (AST/SGOT) Alanine 65 Aminotransferase (ALT /SGPT) Alkaline Phosphatase 97 Lactate Dehydrogenase 262 L Total Protein 6.2 Albumin 2.9 L Globulin 3.30 H Albumin/Globulin 0.87 Ratio Test 04/12/19 08:09 04/12/19 12:40 Bedside Glucose 111 155 Subjective 24 Hr Interval Summary Free Text/Dictation Patient farigues, but denies fever or chills Exam/Review of Systems Exam Vitals Vital Signs Date Temp Pulse Resp B/P (MAP) Pulse Ox O2 O2 Flow FiO2 Time Delivery Rate 04/12/19 98.6 76 18 130/78 98 Room Air 07:17 (95) Intake and Output 04/11/19 04/11/19 04/12/19 1515:00 23:00 07:00 IntakeIntake Total 550 ml 350 ml 300 ml BalanceBalance 550 ml 350 ml 300 ml Constitutional: alert, oriented Head: normocephalic, atraumatic Eyes: nl conjunctiva, EOMI ENMT: nl external ears & nose, nl lips & teeth Neck: supple, non-tender Respiratory: clear to auscultation, normal air movement Cardiovascular: regular rate and rhythm, nl pulses Gastrointestinal: soft, non-tender Extremities: normal pulses Results Results 24hrs Laboratory Tests Test 04/11/19 15:51 04/11/19 18:01 04/11/19 20:39 04/12/19 04:36 Vancomycin Level 9.1 L Trough Bedside Glucose 141 166 White Blood Count 0.3 #L Red Blood Count 2.47 L Hemoglobin 7.6 L Hematocrit 21.4 L Mean Corpuscular 86.6 Volume Mean Corpuscular 30.8 Hemoglobin Mean Corpuscular 35.5 Hemoglobin Concent Red Cell Distribution 12.3 Width Platelet Count 12 #*L Mean Platelet Volume 10.0 Immature Granulocytes 2.900 H % Neutrophils % Lymphocytes % Lymphocytes % 100 H (Manual) Monocytes % Monocytes % (Manual) 1 Eosinophils % Basophils % Nucleated Red Blood 0.0 Cells % Immature Granulocytes 0.010 # Neutrophils # Lymphocytes (Manual) 0.3 L Lymphocytes # Monocytes # Monocytes # (Manual) 0.0 L Eosinophils # Basophils # Nucleated Red Blood Cells # Platelet Estimate SIG DECREASED Polychromasia 1+ Poikilocytosis 1+ Anisocytosis 1+ Microcytosis 1+ Sodium Level 134 L Potassium Level 3.7 Chloride Level 103 Carbon Dioxide Level 23 Anion Gap 8 Blood Urea Nitrogen 9 Creatinine 0.50 L Est Glomerular > 60 Filtrat Rate mL/min Glucose Level 89 Uric Acid 1.8 L Calcium Level 7.6 L Total Bilirubin 0.5 Direct Bilirubin 0.00 Indirect Bilirubin 0.5 Aspartate Amino 15 Transf (AST/SGOT) Alanine 65 Aminotransferase (ALT /SGPT) Alkaline Phosphatase 97 Lactate Dehydrogenase 262 L Total Protein 6.2 Albumin 2.9 L Globulin 3.30 H Albumin/Globulin 0.87 Ratio Test 04/12/19 08:09 04/12/19 12:40 Bedside Glucose 111 155 Medications Medication Current Medications Insulin Aspart (Novolog Insulin Pen) NOVOLOG *MILD* ALGORI... WITH MEALS BEDTIME SC Last administered on 04/12/19 12:43; Admin Dose 1 UNIT; Start 03/23/19 at 18:00 IV Flush (NS 3 ml) 3 ml PER PROTOCOL IV Last administered on 04/08/19 05:29; Admin Dose 3 ML; Start 03/23/19 at 18:00 Ondansetron HCl (Zofran Inj) 4 mg Q6H PRN IV NAUSEA/VOMITING Last administered on 04/09/19 17:54; Admin Dose 4 MG; Start 03/23/19 at 18:00 Acetaminophen (Tylenol Tab) 650 mg Q6H PRN PO .PAIN 1-3 OR TEMP Last administered on 04/10/19 09:05; Admin Dose 650 MG; Start 03/23/19 at 18:00 Acetaminophen/ Hydrocodone Bitart ([place] (5/325)) 1 tab Q6H PRN PO .MOD PAIN 4- 6 Last administered on 04/10/19 03:07; Admin Dose 1 TAB; Start 03/23/19 at 18:00 Miscellaneous Information 1 ea NOTE XX ; Start 03/23/19 at 18:00 Glucose (Glutose) 15 gm Q15M PRN PO DECREASED GLUCOSE; Start 03/23/19 at 18:00 Glucose (Glutose) 22.5 gm Q15M PRN PO DECREASED GLUCOSE; Start 03/23/19 at 18:00 Dextrose (D50w Syringe) 25 ml Q15M PRN IV DECREASED GLUCOSE; Start 03/23/19 at 18:00 Dextrose (D50w Syringe) 50 ml Q15M PRN IV DECREASED GLUCOSE; Start 03/23/19 at 18:00 Glucagon (Glucagen) 1 mg Q15M PRN IM DECREASED GLUCOSE; Start 03/23/19 at 18:00 Glucose (Glutose) 15 gm Q15M PRN BUCCAL DECREASED GLUCOSE; Start 03/23/19 at 18:00 Hydralazine HCl (Apresoline) 10 mg Q4H PRN IV FOR SBP>170; Start 03/26/19 at 03:30 Albuterol/ Ipratropium (Duoneb) 3 ml Q2H RESP THERAPY PRN HHN sob; Start 03/26/19 at 12:30 Furosemide (Lasix) 20 mg DAILY PO Last administered on 04/12/19 09:13; Admin Dose 20 MG; Start 04/02/19 at 09:00 Fluconazole (Diflucan) 100 mg DAILY PO Last administered on 04/12/19 09:13; Admin Dose 100 MG; Start 04/02/19 at 15:30 Acyclovir (Zovirax) 400 mg DAILY PO Last administered on 04/12/19 09:13; Admin Dose 400 MG; Start 04/03/19 at 09:00 Levofloxacin (Levaquin) 500 mg DAILY@06 PO Last administered on 04/12/19 06:00; Admin Dose 500 MG; Start 04/03/19 at 06:00 Al Hydrox/Mg Hydrox/Simethicone (Mag-Al Plus) 30 ml Q6H PRN PO GASTROINTESTINAL UPSET Last administered on 04/09/19 13:41; Admin Dose 30 ML; Start 04/02/19 at 18:30 Carvedilol (Coreg) 12.5 mg BID PO Last administered on 04/12/19 09:16; Admin Dose 12.5 MG; Start 04/02/19 at 21:00 Dexamethasone (Maxidex 0.1% Oph) 2 drop BID BOTH EYES Last administered on 04/12/19 09:15; Admin Dose 2 DROP; Start 04/03/19 at 21:00 Insulin Glargine (Lantus) 20 units DAILY@2000 SC Last administered on 04/11/19 20:44; Admin Dose 20 UNITS; Start 04/05/19 at 20:00 Lisinopril (Zestril) 20 mg BID PO Last administered on 04/12/19 09:14; Admin Dose 20 MG; Start 04/05/19 at 21:00 Vancomycin HCl (Vanco Iv Per Pharmacy) VANCOMYCIN PER PHARMACY PER PROTOCOL XX ; Start 04/10/19 at 16:00 Meropenem/Sodium Chloride 50 ml @ 100 mls/hr Q8 IVPB Last administered on 04/12/19 06:00; Admin Dose 100 MLS/HR; Start 04/10/19 at 17:00 Famotidine (Pepcid) 20 mg DAILY PO Last administered on 04/12/19 09:11; Admin Dose 20 MG; Start 04/11/19 at 09:00 Insulin Aspart (Novolog Insulin Pen) 7 unit WITH MEALS SC Last administered on 04/12/19 12:44; Admin Dose 7 UNIT; Start 04/11/19 at 07:50 Polyethylene Glycol (Miralax) 17 gm DAILY PO Last administered on 04/12/19 09:14; Admin Dose 17 GM; Start 04/11/19 at 09:00 Magnesium Oxide (Mag-Ox 400) 400 mg BID PO Last administered on 04/12/19 09:11; Admin Dose 400 MG; Start 04/10/19 at 21:00 Vancomycin HCl 1.5 gm/Sodium Chloride 250 ml @ 83.333 mls/ hr Q8H IVPB Last administered on 04/12/19 11:04; Admin Dose 83.333 MLS/HR; Start 04/12/19 at 01:00 Miscellaneous Information (*Rx Drug Level Order Reminder*) VANCO TROUGH @ 2,300 ON... 2300 ONCE XX ; Start 04/12/19 at 23:00; Stop 04/12/19 at 23:01 ALBERTO TENORIO MD Apr 12, 2019 14:17
[2019-04-12] MEDS: INSULIN GLARGINE [LANTus] (100 UNITS/ML) SYG SC SCH (21:37)
[2019-04-13] VITALS: BP 129/69; PULSE 70; RESP 18
[2019-04-13] MEDS: VANCOMYCIN HCL 1.5 GM in SOD CHLORIDE 0.9% 250 ML IVPB SCH ×2 (00:52→09:02)
[2019-04-13 02:20] VITALS: BP 134/75; PULSE 80; RESP 17
[2019-04-13] MEDS: LEVOFLOXACIN 500 MG TAB PO SCH (05:09)
[2019-04-13] MEDS: MEROPENEM 500MG/50 ML (PMX) 50 ML IVPB SCH ×3 (05:15→21:52)
[2019-04-13 07:23] VITALS: BP 153/80; PULSE 81; RESP 18
[2019-04-13] MEDS: INSULIN ASPART [NOVOLOG] 3 ML PEN SC SCH ×7 (07:50→21:00)
[2019-04-13] MEDS: MAGNESIUM OXIDE 400 MG TAB PO SCH ×2 (09:03→21:03)
[2019-04-13] MEDS: LOPERAMIDE 2 MG CAP PO PRN (09:03)
[2019-04-13] MEDS: ACYCLOVIR 400 MG TAB PO SCH (09:03)
[2019-04-13] MEDS: FUROSEMIDE 20 MG TAB PO SCH (09:03)
[2019-04-13] MEDS: FLUCONAZOLE 100 MG TAB PO SCH (09:04)
[2019-04-13] MEDS: FAMOTIDINE 20 MG TAB PO SCH (09:04)
[2019-04-13] MEDS: LISINOPRIL 20 MG TAB PO SCH ×2 (09:04→21:04)
[2019-04-13] MEDS: DEXAMETHASONE 0.1% 5 ML OPH BOTH EYES SCH ×2 (09:05→21:03)
--- NOTE | 2019-04-13 09:22 | CONS ---
Consult Date/Type/Reason Admit Date/Time Mar 23, 2019 at 16:10 Initial Consult Date 03/24/19 Requesting Provider: KATIE PACE NP Date/Time of Note DATE: 04/13/19 TIME: 09:19 Subjective Pt reports 3 loose BM overnight. Not foul smelling. Denies f/c/ns. No sob or chest pain. No bruising or bleeding. Posterior teeth feel loose. Objective Vitals Vital Signs Date Temp Pulse Resp B/P (MAP) Pulse Ox O2 O2 Flow FiO2 Time Delivery Rate 04/13/19 99.0 81 18 153/80 99 Room Air 07:23 (104) Intake and Output 04/12/19 04/12/19 04/13/19 1515:00 23:00 07:00 IntakeIntake Total 1050 ml 2620 ml 1150 ml BalanceBalance 1050 ml 2620 ml 1150 ml Exam NAD/A&Ox4 OP clear Anicteric No gingival hyperplasia RRR no m/g/r CTA B Soft NT ND +BS No c/c/e Results/Medications Result Diagram: 04/13/19 0430 04/13/19 0430 Results 24 hrs Laboratory Tests Test 04/12/19 12:40 04/12/19 14:54 04/12/19 17:49 04/12/19 21:35 Bedside Glucose 155 117 191 Platelet Count 7 #*L Test 04/12/19 23:11 04/13/19 02:02 04/13/19 04:30 04/13/19 07:11 Vancomycin Level 17.2 Trough Bedside Glucose 91 White Blood Count 0.4 #L Red Blood Count 2.29 L Hemoglobin 7.2 L Hematocrit 20.0 L Mean Corpuscular 87.3 Volume Mean Corpuscular 31.4 Hemoglobin Mean Corpuscular 36.0 Hemoglobin Concent Red Cell 12.1 Distribution Width Platelet Count 25 #*L Mean Platelet 8.9 Volume Immature 0.000 L Granulocytes % Neutrophils % Lymphocytes % Monocytes % Eosinophils % Basophils % Nucleated Red Blood 0.0 Cells % Immature 0.000 Granulocytes # Neutrophils # Lymphocytes # Monocytes # Eosinophils # Basophils # Nucleated Red Blood Cells # Sodium Level 134 L Potassium Level 3.5 Chloride Level 104 Carbon Dioxide 23 Level Anion Gap 7 Blood Urea Nitrogen 7 Creatinine 0.46 L Est Glomerular > 60 Filtrat Rate mL/min Glucose Level 66 #L Uric Acid 1.7 L Calcium Level 7.8 L Total Bilirubin 0.5 Direct Bilirubin 0.00 Indirect Bilirubin 0.5 Aspartate Amino 15 Transf (AST/SGOT) Alanine 53 Aminotransferase (A LT/SGPT) Alkaline 82 Phosphatase Lactate 297 L Dehydrogenase Total Protein 6.1 Albumin 2.9 L Globulin 3.20 Albumin/Globulin 0.90 Ratio Lab Scanned Report BLOOD TRANSFUSION Test 04/13/19 08:36 Bedside Glucose 89 Home Meds Active Scripts Ibuprofen* (Motrin*) 800 Mg Tab, 800 MG PO Q6H PRN for PAIN AND OR ELEVATED TEMP, #30 TAB Prov:CRISPIN JUSTICE MD 03/22/19 Reported Medications Metoprolol Tartrate* (Lopressor*) 50 Mg Tab, 50 MG PO DAILY, #60 TAB 03/23/19 Lisinopril* (Lisinopril*) 20 Mg Tablet, 20 MG PO DAILY, #30 TAB 03/23/19 Azithromycin* (Azithromycin*) 500 Mg Tablet, 500 MG PO DAILY, TAB START DATE 03/21/19 03/23/19 Acetaminophen* (Acetaminophen*) 325 Mg Tablet, 325 MG PO QID PRN for PAIN AND OR ELEVATED TEMP, #30 TAB 03/23/19 Ondansetron Hcl* (Zofran*) 4 Mg Tab, 4 MG PO TID PRN for NAUSEA AND OR VOMITING, TAB 03/23/19 Metformin Hcl* (Metformin Hcl*) 500 Mg Tablet, 500 MG PO WITH BREAKFAST DINNE, #60 TAB 03/23/19 Medications Current Medications Insulin Aspart (Novolog Insulin Pen) NOVOLOG *MILD* ALGORI... WITH MEALS BEDTIME SC Last administered on 04/12/19at 21:37; Admin Dose 1 UNIT; Start 03/23/19 at 18:00 IV Flush (NS 3 ml) 3 ml PER PROTOCOL IV Last administered on 04/08/19at 05:29; Admin Dose 3 ML; Start 03/23/19 at 18:00 Ondansetron HCl (Zofran Inj) 4 mg Q6H PRN IV NAUSEA/VOMITING Last administered on 04/09/19at 17:54; Admin Dose 4 MG; Start 03/23/19 at 18:00 Acetaminophen (Tylenol Tab) 650 mg Q6H PRN PO .PAIN 1-3 OR TEMP Last administered on 04/10/19at 09:05; Admin Dose 650 MG; Start 03/23/19 at 18:00 Acetaminophen/ Hydrocodone Bitart ([place] (5/325)) 1 tab Q6H PRN PO .MOD PAIN 4- 6 Last administered on 04/10/19 03:07; Admin Dose 1 TAB; Start 03/23/19 at 18:00 Miscellaneous Information 1 ea NOTE XX ; Start 03/23/19 at 18:00 Glucose (Glutose) 15 gm Q15M PRN PO DECREASED GLUCOSE; Start 03/23/19 at 18:00 Glucose (Glutose) 22.5 gm Q15M PRN PO DECREASED GLUCOSE; Start 03/23/19 at 18:00 Dextrose (D50w Syringe) 25 ml Q15M PRN IV DECREASED GLUCOSE; Start 03/23/19 at 18:00 Dextrose (D50w Syringe) 50 ml Q15M PRN IV DECREASED GLUCOSE; Start 03/23/19 at 18:00 Glucagon (Glucagen) 1 mg Q15M PRN IM DECREASED GLUCOSE; Start 03/23/19 at 18:00 Glucose (Glutose) 15 gm Q15M PRN BUCCAL DECREASED GLUCOSE; Start 03/23/19 at 18:00 Hydralazine HCl (Apresoline) 10 mg Q4H PRN IV FOR SBP>170; Start 03/26/19 at 03:30 Albuterol/ Ipratropium (Duoneb) 3 ml Q2H RESP THERAPY PRN HHN sob; Start 03/26/19 at 12:30 Furosemide (Lasix) 20 mg DAILY PO Last administered on 04/13/19at 09:03; Admin Dose 20 MG; Start 04/02/19 at 09:00 Fluconazole (Diflucan) 100 mg DAILY PO Last administered on 04/13/19at 09:04; Admin Dose 100 MG; Start 04/02/19 at 15:30 Acyclovir (Zovirax) 400 mg DAILY PO Last administered on 04/13/19 09:03; Admin Dose 400 MG; Start 04/03/19 at 09:00 Levofloxacin (Levaquin) 500 mg DAILY@06 PO Last administered on 04/13/19at 05:09; Admin Dose 500 MG; Start 04/03/19 at 06:00 Al Hydrox/Mg Hydrox/Simethicone (Mag-Al Plus) 30 ml Q6H PRN PO GASTROINTESTINAL UPSET Last administered on 04/09/19 13:41; Admin Dose 30 ML; Start 04/02/19 at 18:30 Carvedilol (Coreg) 12.5 mg BID PO Last administered on 04/13/19 09:03; Admin Dose 12.5 MG; Start 04/02/19 at 21:00 Dexamethasone (Maxidex 0.1% Oph) 2 drop BID BOTH EYES Last administered on 04/13/19 09:05; Admin Dose 2 DROP; Start 04/03/19 at 21:00 Insulin Glargine (Lantus) 20 units DAILY@2000 SC Last administered on 04/12/19 21:37; Admin Dose 20 UNITS; Start 04/05/19 at 20:00 Lisinopril (Zestril) 20 mg BID PO Last administered on 04/13/19 09:04; Admin Dose 20 MG; Start 04/05/19 at 21:00 Vancomycin HCl (Vanco Iv Per Pharmacy) VANCOMYCIN PER PHARMACY PER PROTOCOL XX ; Start 04/10/19 at 16:00 Meropenem/Sodium Chloride 50 ml @ 100 mls/hr Q8 IVPB Last administered on 04/13/19 05:15; Admin Dose 100 MLS/HR; Start 04/10/19 at 17:00 Famotidine (Pepcid) 20 mg DAILY PO Last administered on 04/13/19 09:04; Admin Dose 20 MG; Start 04/11/19 at 09:00 Insulin Aspart (Novolog Insulin Pen) 7 unit WITH MEALS SC Last administered on 04/13/19 09:13; Admin Dose 7 UNIT; Start 04/11/19 at 07:50 Magnesium Oxide (Mag-Ox 400) 400 mg BID PO Last administered on 04/13/19 09:03; Admin Dose 400 MG; Start 04/10/19 at 21:00 Vancomycin HCl 1.5 gm/Sodium Chloride 250 ml @ 83.333 mls/ hr Q8H IVPB Last administered on 04/13/19 09:02; Admin Dose 83.333 MLS/HR; Start 04/12/19 at 01:00 Loperamide HCl (Imodium Cap) 2 mg Q8H PRN PO DIARRHEA Last administered on 04/13/19 09:03; Admin Dose 2 MG; Start 04/13/19 at 09:00 Assessment/Plan Assessment/Plan (Daily) ASSESSMENT: 1. AML-s/p 7 + 3 induction therapy - awaiting marrow recovery 2. Pancytopenia: due to chemotherapy 3. Neutropenic fever: cx negative to date but on abx. Not spiking temp. PLAN 1. No need for transfusions today (goal to keep plts over 10k and Hb over 7.0) 2. Await marrow recovery prior to discharge 3. Cont Abx 4. Check stool for c.diff (negative) SUJEY THOMAS Apr 13, 2019 09:22
--- NOTE | 2019-04-13 10:54 | CONS ---
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 Continue beta-lissette as heart rate and blood pressure permits Consultation Date/Type/Reason Admit Date/Time Mar 23, 2019 at 16:10 Initial Consult Date 03/24/19 Type of Consult Cardiology Requesting Provider: KATIE PACE NP Date/Time of Note DATE: 04/13/19 TIME: 10:54 24 HR Interval Summary Free Text/Dictation the patient with no change Exam/Review of Systems Vital Signs Vitals Vital Signs Date Temp Pulse Resp B/P (MAP) Pulse Ox O2 O2 Flow FiO2 Time Delivery Rate 04/13/19 99.0 81 18 153/80 99 Room Air 07:23 (104) Intake and Output 04/12/19 04/12/19 04/13/19 1515:00 23:00 07:00 IntakeIntake Total 1050 ml 2620 ml 1150 ml BalanceBalance 1050 ml 2620 ml 1150 ml Labs Result Diagram: 04/13/19 0430 04/13/19 0430 Results 24hrs Laboratory Tests Test 04/12/19 12:40 04/12/19 14:54 04/12/19 17:49 04/12/19 21:35 Bedside Glucose 155 117 191 Platelet Count 7 #*L Test 04/12/19 23:11 04/13/19 02:02 04/13/19 04:30 04/13/19 07:11 Vancomycin Level 17.2 Trough Bedside Glucose 91 White Blood Count 0.4 #L Red Blood Count 2.29 L Hemoglobin 7.2 L Hematocrit 20.0 L Mean Corpuscular 87.3 Volume Mean Corpuscular 31.4 Hemoglobin Mean Corpuscular 36.0 Hemoglobin Concen t Red Cell 12.1 Distribution Width Platelet Count 25 #*L Mean Platelet 8.9 Volume Immature 0.000 L Granulocytes % Neutrophils % Band Neutrophils 3 % (Manual) Lymphocytes % Lymphocytes % 97 H (Manual) Monocytes % Eosinophils % Basophils % Nucleated Red 0.0 Blood Cells % Immature 0.000 Granulocytes # Neutrophils # Band Neutrophils 0.0 # Lymphocytes 0.3 L (Manual) Lymphocytes # Monocytes # Eosinophils # Basophils # Nucleated Red Blood Cells # White Cell @See below Morphology Comment Platelet Estimate SIG DECREASED Polychromasia 1+ Poikilocytosis 1+ Anisocytosis 1+ Red Cell @See below Morphology Comment Sodium Level 134 L Potassium Level 3.5 Chloride Level 104 Carbon Dioxide 23 Level Anion Gap 7 Blood Urea 7 Nitrogen Creatinine 0.46 L Est Glomerular > 60 Filtrat Rate mL/min Glucose Level 66 #L Uric Acid 1.7 L Calcium Level 7.8 L Total Bilirubin 0.5 Direct Bilirubin 0.00 Indirect 0.5 Bilirubin Aspartate Amino 15 Transf (AST/SGOT) Alanine 53 Aminotransferase (ALT/SGPT) Alkaline 82 Phosphatase Lactate 297 L Dehydrogenase Total Protein 6.1 Albumin 2.9 L Globulin 3.20 Albumin/Globulin 0.90 Ratio Lab Scanned BLOOD TRANSFUSIO Report N Test 04/13/19 08:36 Bedside Glucose 89 Medications Medications Current Medications Insulin Aspart (Novolog Insulin Pen) NOVOLOG *MILD* ALGORI... WITH MEALS BEDTIME SC Last administered on 04/12/19 21:37; Admin Dose 1 UNIT; Start 03/23/19 at 18:00 IV Flush (NS 3 ml) 3 ml PER PROTOCOL IV Last administered on 04/08/19 05:29; Admin Dose 3 ML; Start 03/23/19 at 18:00 Ondansetron HCl (Zofran Inj) 4 mg Q6H PRN IV NAUSEA/VOMITING Last administered on 04/09/19 17:54; Admin Dose 4 MG; Start 03/23/19 at 18:00 Acetaminophen (Tylenol Tab) 650 mg Q6H PRN PO .PAIN 1-3 OR TEMP Last administered on 04/10/19 09:05; Admin Dose 650 MG; Start 03/23/19 at 18:00 Acetaminophen/ Hydrocodone Bitart ([place] (5/325)) 1 tab Q6H PRN PO .MOD PAIN 4- 6 Last administered on 04/10/19 03:07; Admin Dose 1 TAB; Start 03/23/19 at 18:00 Miscellaneous Information 1 ea NOTE XX ; Start 03/23/19 at 18:00 Glucose (Glutose) 15 gm Q15M PRN PO DECREASED GLUCOSE; Start 03/23/19 at 18:00 Glucose (Glutose) 22.5 gm Q15M PRN PO DECREASED GLUCOSE; Start 03/23/19 at 18:00 Dextrose (D50w Syringe) 25 ml Q15M PRN IV DECREASED GLUCOSE; Start 03/23/19 at 18:00 Dextrose (D50w Syringe) 50 ml Q15M PRN IV DECREASED GLUCOSE; Start 03/23/19 at 18:00 Glucagon (Glucagen) 1 mg Q15M PRN IM DECREASED GLUCOSE; Start 03/23/19 at 18:00 Glucose (Glutose) 15 gm Q15M PRN BUCCAL DECREASED GLUCOSE; Start 03/23/19 at 18:00 Hydralazine HCl (Apresoline) 10 mg Q4H PRN IV FOR SBP>170; Start 03/26/19 at 03:30 Albuterol/ Ipratropium (Duoneb) 3 ml Q2H RESP THERAPY PRN HHN sob; Start 03/26/19 at 12:30 Furosemide (Lasix) 20 mg DAILY PO Last administered on 04/13/19 09:03; Admin Dose 20 MG; Start 04/02/19 at 09:00 Fluconazole (Diflucan) 100 mg DAILY PO Last administered on 04/13/19 09:04; Admin Dose 100 MG; Start 04/02/19 at 15:30 Acyclovir (Zovirax) 400 mg DAILY PO Last administered on 04/13/19 09:03; Admin Dose 400 MG; Start 04/03/19 at 09:00 Levofloxacin (Levaquin) 500 mg DAILY@06 PO Last administered on 04/13/19 05:09; Admin Dose 500 MG; Start 04/03/19 at 06:00 Al Hydrox/Mg Hydrox/Simethicone (Mag-Al Plus) 30 ml Q6H PRN PO GASTROINTESTINAL UPSET Last administered on 04/09/19 13:41; Admin Dose 30 ML; Start 04/02/19 at 18:30 Carvedilol (Coreg) 12.5 mg BID PO Last administered on 04/13/19 09:03; Admin Dose 12.5 MG; Start 04/02/19 at 21:00 Dexamethasone (Maxidex 0.1% Oph) 2 drop BID BOTH EYES Last administered on 04/13/19 09:05; Admin Dose 2 DROP; Start 04/03/19 at 21:00 Insulin Glargine (Lantus) 20 units DAILY@2000 SC Last administered on 04/12/19 21:37; Admin Dose 20 UNITS; Start 04/05/19 at 20:00 Lisinopril (Zestril) 20 mg BID PO Last administered on 04/13/19at 09:04; Admin Dose 20 MG; Start 04/05/19 at 21:00 Vancomycin HCl (Vanco Iv Per Pharmacy) VANCOMYCIN PER PHARMACY PER PROTOCOL XX ; Start 04/10/19 at 16:00 Meropenem/Sodium Chloride 50 ml @ 100 mls/hr Q8 IVPB Last administered on 04/13/19at 05:15; Admin Dose 100 MLS/HR; Start 04/10/19 at 17:00 Famotidine (Pepcid) 20 mg DAILY PO Last administered on 04/13/19at 09:04; Admin Dose 20 MG; Start 04/11/19 at 09:00 Insulin Aspart (Novolog Insulin Pen) 7 unit WITH MEALS SC Last administered on 04/13/19at 09:13; Admin Dose 7 UNIT; Start 04/11/19 at 07:50 Magnesium Oxide (Mag-Ox 400) 400 mg BID PO Last administered on 04/13/19at 09:03; Admin Dose 400 MG; Start 04/10/19 at 21:00 Loperamide HCl (Imodium Cap) 2 mg Q8H PRN PO DIARRHEA Last administered on 04/13/19at 09:03; Admin Dose 2 MG; Start 04/13/19 at 09:00 Vancomycin HCl 1.25 gm/Sodium Chloride 250 ml @ 83.333 mls/ hr Q8H IVPB ; Start 04/13/19 at 17:00 Miscellaneous Information (*Rx Drug Level Order Reminder*) VANCO TR LEVEL PRIOR... 1600 ONCE XX ; Start 04/14/19 at 16:00; Stop 04/14/19 at 16:01 EMRE PLASCENCIA MD Apr 13, 2019 10:54
[2019-04-13 14:03] VITALS: BP 134/75; PULSE 87; RESP 18
--- NOTE | 2019-04-13 14:27 | CONS ---
Assessment/Plan Assessment/Plan Hospital Course (Demo Recall) ID PROGRESS NOTE CURRENT ABX: DAY # =>Doxycycline + Levaquin + Diflucan + Acyclovir s/p Vanco IV + Cefepime POST CHEMO INDUCTION=> DAY # 12 24H INTERVAL SUMMARY * Low grade temps 100.+-- no chills/no rigors -- VSS * Still with loose BMs ye -- C DIFFICILE DNA AMPLIFICATION Final CYTOTOXIGENIC C DIFFICILE NEGATIVE (Ref Range Neg) * Blood cultures and urine culture negative to date * s/p 03/26/[address] guided left iliac bone marrow aspiration and biopsy. * Indwelling's: Right IJ Port-A-Cath DIAGNOSTIC IMAGING * 03/28/19 CXR: Chest x-ray revealed no acute pulmonary abnormality * 04/07/[address]: No acute findings PHYSICAL EXAMINATION: GENERAL: VSS, NAD HEENT: AT, NC, NECK: Supple, CHEST: Rise symmetrical HEART: Pulse RRR ABDOMEN: Benign EXTREMITIES: Warm, dry SKIN: No rash, no diaphoresis ID ASSESSMENT 54 yo M admit with: 1. Ongoing fevers likely secondary to underlying malignancy and neutropenia 2. AML, newly diagnosed 3. Diabetes 4. Hypertension 5. 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 Continue current ABX = PROPHYLAXIS per ID [employer] colleague notes * PRN => If fever increased to 101, start Vanco IV + Merrem and DC Doxycycline/Levaquin 2. Neutropenic precautions when indicated . Consultation Date/Type/Reason Admit Date/Time Mar 23, 2019 at 16:10 Initial Consult Date 03/24/19 Requesting Provider: KATIE PACE NP Date/Time of Note DATE: 04/13/19 TIME: 14:25 Exam/Review of Systems Exam Vitals Vital Signs Date Temp Pulse Resp B/P (MAP) Pulse Ox O2 O2 Flow FiO2 Time Delivery Rate 04/13/19 100.3 87 18 134/75 99 Room Air 14:03 (94) Intake and Output 04/12/19 04/12/19 04/13/19 1515:00 23:00 07:00 IntakeIntake Total 1050 ml 2620 ml 1150 ml BalanceBalance 1050 ml 2620 ml 1150 ml Results Result Diagram: 04/13/19 0430 04/13/19 0430 Results 24hrs Laboratory Tests Test 04/12/19 14:54 04/12/19 17:49 04/12/19 21:35 04/12/19 23:11 Platelet Count 7 #*L Bedside Glucose 117 191 Vancomycin Level 17.2 Trough Test 04/13/19 02:02 04/13/19 04:30 04/13/19 07:11 04/13/19 08:36 Bedside Glucose 91 89 White Blood Count 0.4 #L Red Blood Count 2.29 L Hemoglobin 7.2 L Hematocrit 20.0 L Mean Corpuscular 87.3 Volume Mean Corpuscular 31.4 Hemoglobin Mean Corpuscular 36.0 Hemoglobin Concen t Red Cell 12.1 Distribution Width Platelet Count 25 #*L Mean Platelet 8.9 Volume Immature 0.000 L Granulocytes % Neutrophils % Band Neutrophils 3 % (Manual) Lymphocytes % Lymphocytes % 97 H (Manual) Monocytes % Eosinophils % Basophils % Nucleated Red 0.0 Blood Cells % Immature 0.000 Granulocytes # Neutrophils # Band Neutrophils 0.0 # Lymphocytes 0.3 L (Manual) Lymphocytes # Monocytes # Eosinophils # Basophils # Nucleated Red Blood Cells # White Cell @See below Morphology Comment Platelet Estimate SIG DECREASED Polychromasia 1+ Poikilocytosis 1+ Anisocytosis 1+ Red Cell @See below Morphology Comment Sodium Level 134 L Potassium Level 3.5 Chloride Level 104 Carbon Dioxide 23 Level Anion Gap 7 Blood Urea 7 Nitrogen Creatinine 0.46 L Est Glomerular > 60 Filtrat Rate mL/min Glucose Level 66 #L Uric Acid 1.7 L Calcium Level 7.8 L Total Bilirubin 0.5 Direct Bilirubin 0.00 Indirect 0.5 Bilirubin Aspartate Amino 15 Transf (AST/SGOT) Alanine 53 Aminotransferase (ALT/SGPT) Alkaline 82 Phosphatase Lactate 297 L Dehydrogenase Total Protein 6.1 Albumin 2.9 L Globulin 3.20 Albumin/Globulin 0.90 Ratio Lab Scanned BLOOD TRANSFUSIO Report N Test 04/13/19 12:29 Bedside Glucose 180 Medications Medication Current Medications Insulin Aspart (Novolog Insulin Pen) NOVOLOG *MILD* ALGORI... WITH MEALS BEDTIME SC Last administered on 04/13/19at 12:40; Admin Dose 1 UNIT; Start 03/23/19 at 18:00 IV Flush (NS 3 ml) 3 ml PER PROTOCOL IV Last administered on 04/08/19 05:29; Admin Dose 3 ML; Start 03/23/19 at 18:00 Ondansetron HCl (Zofran Inj) 4 mg Q6H PRN IV NAUSEA/VOMITING Last administered on 04/09/19 17:54; Admin Dose 4 MG; Start 03/23/19 at 18:00 Acetaminophen (Tylenol Tab) 650 mg Q6H PRN PO .PAIN 1-3 OR TEMP Last administered on 04/10/19 09:05; Admin Dose 650 MG; Start 03/23/19 at 18:00 Acetaminophen/ Hydrocodone Bitart ([place] (5/325)) 1 tab Q6H PRN PO .MOD PAIN 4- 6 Last administered on 04/10/19 03:07; Admin Dose 1 TAB; Start 03/23/19 at 18:00 Miscellaneous Information 1 ea NOTE XX ; Start 03/23/19 at 18:00 Glucose (Glutose) 15 gm Q15M PRN PO DECREASED GLUCOSE; Start 03/23/19 at 18:00 Glucose (Glutose) 22.5 gm Q15M PRN PO DECREASED GLUCOSE; Start 03/23/19 at 18:00 Dextrose (D50w Syringe) 25 ml Q15M PRN IV DECREASED GLUCOSE; Start 03/23/19 at 18:00 Dextrose (D50w Syringe) 50 ml Q15M PRN IV DECREASED GLUCOSE; Start 03/23/19 at 18:00 Glucagon (Glucagen) 1 mg Q15M PRN IM DECREASED GLUCOSE; Start 03/23/19 at 18:00 Glucose (Glutose) 15 gm Q15M PRN BUCCAL DECREASED GLUCOSE; Start 03/23/19 at 18:00 Hydralazine HCl (Apresoline) 10 mg Q4H PRN IV FOR SBP>170; Start 03/26/19 at 03:30 Albuterol/ Ipratropium (Duoneb) 3 ml Q2H RESP THERAPY PRN HHN sob; Start 03/26/19 at 12:30 Furosemide (Lasix) 20 mg DAILY PO Last administered on 04/13/19 09:03; Admin Dose 20 MG; Start 04/02/19 at 09:00 Fluconazole (Diflucan) 100 mg DAILY PO Last administered on 04/13/19 09:04; Admin Dose 100 MG; Start 04/02/19 at 15:30 Acyclovir (Zovirax) 400 mg DAILY PO Last administered on 04/13/19 09:03; Admin Dose 400 MG; Start 04/03/19 at 09:00 Levofloxacin (Levaquin) 500 mg DAILY@06 PO Last administered on 04/13/19 05:09; Admin Dose 500 MG; Start 04/03/19 at 06:00 Al Hydrox/Mg Hydrox/Simethicone (Mag-Al Plus) 30 ml Q6H PRN PO GASTROINTESTINAL UPSET Last administered on 04/09/19 13:41; Admin Dose 30 ML; Start 04/02/19 at 18:30 Carvedilol (Coreg) 12.5 mg BID PO Last administered on 04/13/19 09:03; Admin Dose 12.5 MG; Start 04/02/19 at 21:00 Dexamethasone (Maxidex 0.1% Oph) 2 drop BID BOTH EYES Last administered on 04/13/19 09:05; Admin Dose 2 DROP; Start 04/03/19 at 21:00 Insulin Glargine (Lantus) 20 units DAILY@2000 SC Last administered on 04/12/19 21:37; Admin Dose 20 UNITS; Start 04/05/19 at 20:00 Lisinopril (Zestril) 20 mg BID PO Last administered on 04/13/19 09:04; Admin Dose 20 MG; Start 04/05/19 at 21:00 Vancomycin HCl (Vanco Iv Per Pharmacy) VANCOMYCIN PER PHARMACY PER PROTOCOL XX ; Start 04/10/19 at 16:00 Meropenem/Sodium Chloride 50 ml @ 100 mls/hr Q8 IVPB Last administered on 04/13/19 13:54; Admin Dose 100 MLS/HR; Start 04/10/19 at 17:00 Famotidine (Pepcid) 20 mg DAILY PO Last administered on 04/13/19 09:04; Admin Dose 20 MG; Start 04/11/19 at 09:00 Insulin Aspart (Novolog Insulin Pen) 7 unit WITH MEALS SC Last administered on 04/13/19 12:41; Admin Dose 7 UNIT; Start 04/11/19 at 07:50 Magnesium Oxide (Mag-Ox 400) 400 mg BID PO Last administered on 04/13/19at 09:03; Admin Dose 400 MG; Start 04/10/19 at 21:00 Loperamide HCl (Imodium Cap) 2 mg Q8H PRN PO DIARRHEA Last administered on 04/13/19at 09:03; Admin Dose 2 MG; Start 04/13/19 at 09:00 Vancomycin HCl 1.25 gm/Sodium Chloride 250 ml @ 83.333 mls/ hr Q8H IVPB ; Start 04/13/19 at 17:00 Miscellaneous Information (*Rx Drug Level Order Reminder*) BAILEY STODDARD P RIOR... 1600 ONCE XX ; Start 04/14/19 at 16:00; Stop 04/14/19 at 16:01 LIVIA OSMAN NP Apr 13, 2019 14:27
[2019-04-13] MEDS: VANCOMYCIN HCL 1.25 GM in SOD CHLORIDE 0.9% 250 ML IVPB SCH (16:51)
[2019-04-13 19:20] VITALS: BP 147/80; PULSE 18; RESP 18
--- NOTE | 2019-04-13 19:35 | PN ---
Date/Time of Note Date/Time of Note DATE: 04/13/19 TIME: 19:34 Assessment/Plan VTE Prophylaxis Risk score (from [facility] [place])>0 risk: 3 SCD applied (from [facility] [place]): No SCD contraindicated: low risk/ambulating Pharmacological prophylaxis: NA/contraindicated Pharm contraindication: low risk/ambulating, blood coag disorder Lines/Catheters IV [facility] Type [facility]from [facility] [place] [facility] line still needed: Yes Urinary Cath still in place: No Assessment/Plan Hospital Course A/P 1) AML; sp induction chemo; monitor 2) Neutropenic fever; cont atb/antiviral 3) CMY; EF=35%. ischemic vs nonischemic; cont bb/acei 4) DM [id number] 5) Metabolic syndrome 6) Pancytopenia -aml vs chemo induced 7) Loose bm's: antibiotic induced/ Benign diarrhea. stool softners decreased. c diff -ve. start imodium. S: 04/10 sp transfusion. fever noted 04/11 no events; low grade fever 04/12 no diarrhea abdominal pain. Low-grade fever. 04/13 transfused platelets. diarrhea noted, but no abd pain. O: vss except fever PE no pallor reg s1s2 no mrg ctab; port c/d/i bs+ nt nd no r r g no edema Result Diagram: 04/13/19 0430 04/13/19 0430 Results 24hrs Laboratory Tests Test 04/12/19 21:35 04/12/19 23:11 04/13/19 02:02 04/13/19 04:30 Bedside Glucose 191 91 Vancomycin Level 17.2 Trough White Blood Count 0.4 #L Red Blood Count 2.29 L Hemoglobin 7.2 L Hematocrit 20.0 L Mean Corpuscular 87.3 Volume Mean Corpuscular 31.4 Hemoglobin Mean Corpuscular 36.0 Hemoglobin Concen t Red Cell 12.1 Distribution Width Platelet Count 25 #*L Mean Platelet 8.9 Volume Immature 0.000 L Granulocytes % Neutrophils % Band Neutrophils 3 % (Manual) Lymphocytes % Lymphocytes % 97 H (Manual) Monocytes % Eosinophils % Basophils % Nucleated Red 0.0 Blood Cells % Immature 0.000 Granulocytes # Neutrophils # Band Neutrophils 0.0 # Lymphocytes 0.3 L (Manual) Lymphocytes # Monocytes # Eosinophils # Basophils # Nucleated Red Blood Cells # White Cell @See below Morphology Comment Platelet Estimate SIG DECREASED Polychromasia 1+ Poikilocytosis 1+ Anisocytosis 1+ Red Cell @See below Morphology Comment Sodium Level 134 L Potassium Level 3.5 Chloride Level 104 Carbon Dioxide 23 Level Anion Gap 7 Blood Urea 7 Nitrogen Creatinine 0.46 L Est Glomerular > 60 Filtrat Rate mL/min Glucose Level 66 #L Uric Acid 1.7 L Calcium Level 7.8 L Total Bilirubin 0.5 Direct Bilirubin 0.00 Indirect 0.5 Bilirubin Aspartate Amino 15 Transf (AST/SGOT) Alanine 53 Aminotransferase (ALT/SGPT) Alkaline 82 Phosphatase Lactate 297 L Dehydrogenase Total Protein 6.1 Albumin 2.9 L Globulin 3.20 Albumin/Globulin 0.90 Ratio Test 04/13/19 07:11 04/13/19 08:36 04/13/19 12:29 04/13/19 17:38 Lab Scanned BLOOD TRANSFUSIO Report N Bedside Glucose 89 180 174 Exam/Review of Systems Exam Vitals Vital Signs Date Temp Pulse Resp B/P (MAP) Pulse Ox O2 O2 Flow FiO2 Time Delivery Rate 04/13/19 100.3 87 18 134/75 99 Room Air 14:03 (94) Intake and Output 04/12/19 04/12/19 04/13/19 1515:00 23:00 07:00 IntakeIntake Total 1050 ml 2620 ml 1150 ml BalanceBalance 1050 ml 2620 ml 1150 ml Results Results 24hrs Laboratory Tests Test 04/12/19 21:35 04/12/19 23:11 04/13/19 02:02 04/13/19 04:30 Bedside Glucose 191 91 Vancomycin Level 17.2 Trough White Blood Count 0.4 #L Red Blood Count 2.29 L Hemoglobin 7.2 L Hematocrit 20.0 L Mean Corpuscular 87.3 Volume Mean Corpuscular 31.4 Hemoglobin Mean Corpuscular 36.0 Hemoglobin Concen t Red Cell 12.1 Distribution Width Platelet Count 25 #*L Mean Platelet 8.9 Volume Immature 0.000 L Granulocytes % Neutrophils % Band Neutrophils 3 % (Manual) Lymphocytes % Lymphocytes % 97 H (Manual) Monocytes % Eosinophils % Basophils % Nucleated Red 0.0 Blood Cells % Immature 0.000 Granulocytes # Neutrophils # Band Neutrophils 0.0 # Lymphocytes 0.3 L (Manual) Lymphocytes # Monocytes # Eosinophils # Basophils # Nucleated Red Blood Cells # White Cell @See below Morphology Comment Platelet Estimate SIG DECREASED Polychromasia 1+ Poikilocytosis 1+ Anisocytosis 1+ Red Cell @See below Morphology Comment Sodium Level 134 L Potassium Level 3.5 Chloride Level 104 Carbon Dioxide 23 Level Anion Gap 7 Blood Urea 7 Nitrogen Creatinine 0.46 L Est Glomerular > 60 Filtrat Rate mL/min Glucose Level 66 #L Uric Acid 1.7 L Calcium Level 7.8 L Total Bilirubin 0.5 Direct Bilirubin 0.00 Indirect 0.5 Bilirubin Aspartate Amino 15 Transf (AST/SGOT) Alanine 53 Aminotransferase (ALT/SGPT) Alkaline 82 Phosphatase Lactate 297 L Dehydrogenase Total Protein 6.1 Albumin 2.9 L Globulin 3.20 Albumin/Globulin 0.90 Ratio Test 04/13/19 07:11 04/13/19 08:36 04/13/19 12:29 04/13/19 17:38 Lab Scanned BLOOD TRANSFUSIO Report N Bedside Glucose 89 180 174 Medications Medication Current Medications Insulin Aspart (Novolog Insulin Pen) NOVOLOG *MILD* ALGORI... WITH MEALS BEDTIME SC Last administered on 04/13/19 17:44; Admin Dose 1 UNIT; Start 03/23/19 at 18:00 IV Flush (NS 3 ml) 3 ml PER PROTOCOL IV Last administered on 04/08/19 05:29; Admin Dose 3 ML; Start 03/23/19 at 18:00 Ondansetron HCl (Zofran Inj) 4 mg Q6H PRN IV NAUSEA/VOMITING Last administered on 04/09/19 17:54; Admin Dose 4 MG; Start 03/23/19 at 18:00 Acetaminophen (Tylenol Tab) 650 mg Q6H PRN PO .PAIN 1-3 OR TEMP Last administered on 04/10/19 09:05; Admin Dose 650 MG; Start 03/23/19 at 18:00 Acetaminophen/ Hydrocodone Bitart ([place] (5/325)) 1 tab Q6H PRN PO .MOD PAIN 4- 6 Last administered on 04/10/19 03:07; Admin Dose 1 TAB; Start 03/23/19 at 18:00 Miscellaneous Information 1 ea NOTE XX ; Start 03/23/19 at 18:00 Glucose (Glutose) 15 gm Q15M PRN PO DECREASED GLUCOSE; Start 03/23/19 at 18:00 Glucose (Glutose) 22.5 gm Q15M PRN PO DECREASED GLUCOSE; Start 03/23/19 at 18:00 Dextrose (D50w Syringe) 25 ml Q15M PRN IV DECREASED GLUCOSE; Start 03/23/19 at 18:00 Dextrose (D50w Syringe) 50 ml Q15M PRN IV DECREASED GLUCOSE; Start 03/23/19 at 18:00 Glucagon (Glucagen) 1 mg Q15M PRN IM DECREASED GLUCOSE; Start 03/23/19 at 18:00 Glucose (Glutose) 15 gm Q15M PRN BUCCAL DECREASED GLUCOSE; Start 03/23/19 at 18:00 Hydralazine HCl (Apresoline) 10 mg Q4H PRN IV FOR SBP>170; Start 03/26/19 at 03:30 Albuterol/ Ipratropium (Duoneb) 3 ml Q2H RESP THERAPY PRN HHN sob; Start 03/26/19 at 12:30 Furosemide (Lasix) 20 mg DAILY PO Last administered on 04/13/19 09:03; Admin Dose 20 MG; Start 04/02/19 at 09:00 Fluconazole (Diflucan) 100 mg DAILY PO Last administered on 04/13/19 09:04; Admin Dose 100 MG; Start 04/02/19 at 15:30 Acyclovir (Zovirax) 400 mg DAILY PO Last administered on 04/13/19 09:03; Admin Dose 400 MG; Start 04/03/19 at 09:00 Levofloxacin (Levaquin) 500 mg DAILY@06 PO Last administered on 04/13/19 05:09; Admin Dose 500 MG; Start 04/03/19 at 06:00 Al Hydrox/Mg Hydrox/Simethicone (Mag-Al Plus) 30 ml Q6H PRN PO GASTROINTESTINAL UPSET Last administered on 04/09/19 13:41; Admin Dose 30 ML; Start 04/02/19 at 18:30 Carvedilol (Coreg) 12.5 mg BID PO Last administered on 04/13/19 09:03; Admin Dose 12.5 MG; Start 04/02/19 at 21:00 Dexamethasone (Maxidex 0.1% Oph) 2 drop BID BOTH EYES Last administered on 04/13/19 09:05; Admin Dose 2 DROP; Start 04/03/19 at 21:00 Insulin Glargine (Lantus) 20 units DAILY@2000 SC Last administered on 04/12/19 21:37; Admin Dose 20 UNITS; Start 04/05/19 at 20:00 Lisinopril (Zestril) 20 mg BID PO Last administered on 04/13/19at 09:04; Admin Dose 20 MG; Start 04/05/19 at 21:00 Vancomycin HCl (Vanco Iv Per Pharmacy) VANCOMYCIN PER PHARMACY PER PROTOCOL XX ; Start 04/10/19 at 16:00 Meropenem/Sodium Chloride 50 ml @ 100 mls/hr Q8 IVPB Last administered on 04/13/19at 13:54; Admin Dose 100 MLS/HR; Start 04/10/19 at 17:00 Famotidine (Pepcid) 20 mg DAILY PO Last administered on 04/13/19 09:04; Admin Dose 20 MG; Start 04/11/19 at 09:00 Insulin Aspart (Novolog Insulin Pen) 7 unit WITH MEALS SC Last administered on 04/13/19 17:44; Admin Dose 7 UNIT; Start 04/11/19 at 07:50 Magnesium Oxide (Mag-Ox 400) 400 mg BID PO Last administered on 04/13/19 09:03; Admin Dose 400 MG; Start 04/10/19 at 21:00 Loperamide HCl (Imodium Cap) 2 mg Q8H PRN PO DIARRHEA Last administered on 04/13/19 09:03; Admin Dose 2 MG; Start 04/13/19 at 09:00 Vancomycin HCl 1.25 gm/Sodium Chloride 250 ml @ 83.333 mls/ hr Q8H IVPB Last administered on 04/13/19 16:51; Admin Dose 83.333 MLS/HR; Start 04/13/19 at 17:00 Miscellaneous Information (*Rx Drug Level Order Reminder*) VANCO TR LEVEL PRIOR... 1600 ONCE XX ; Start 04/14/19 at 16:00; Stop 04/14/19 at 16:01 ESPERANZA FAUST MD Apr 13, 2019 19:35
[2019-04-13] MEDS: ACETAMINOPHEN 325 MG TAB PO PRN (19:44)
[2019-04-13] MEDS: INSULIN GLARGINE [LANTus] (100 UNITS/ML) SYG SC SCH (21:13)
[2019-04-14 00:30] VITALS: BP 132/72; RESP 18
[2019-04-14] MEDS: VANCOMYCIN HCL 1.25 GM in SOD CHLORIDE 0.9% 250 ML IVPB SCH ×3 (01:10→19:31)
[2019-04-14 02:49] VITALS: BP 136/74; PULSE 80; RESP 18
[2019-04-14] MEDS: MEROPENEM 500MG/50 ML (PMX) 50 ML IVPB SCH ×3 (06:21→22:43)
[2019-04-14 06:22] VITALS: BP 144/72; PULSE 83; RESP 18
[2019-04-14] MEDS: LEVOFLOXACIN 500 MG TAB PO SCH (06:22)
[2019-04-14 07:34] VITALS: BP 131/79; PULSE 84
[2019-04-14] MEDS: INSULIN ASPART [NOVOLOG] 3 ML PEN SC SCH ×7 (07:50→21:08)
--- NOTE | 2019-04-14 08:09 | CONS ---
Consult Date/Type/Reason Admit Date/Time Mar 23, 2019 at 16:10 Initial Consult Date 03/24/19 Requesting Provider: KATIE PACE NP Date/Time of Note DATE: 04/14/19 TIME: 08:06 Subjective No events overnight. No f/c/ns. No bleeding or bruising. No headaches. Objective Vitals Vital Signs Date Temp Pulse Resp B/P (MAP) Pulse Ox O2 O2 Flow FiO2 Time Delivery Rate 04/14/19 98.6 84 131/79 Room Air 07:34 (96) 04/14/19 18 100 06:22 Intake and Output 04/13/19 04/13/19 04/14/19 1515:00 23:00 07:00 IntakeIntake Total 800 ml 550 ml 1100 ml BalanceBalance 800 ml 550 ml 1100 ml Exam NAD/A&Ox4 OP clear RRR no m/g/r CTA B Soft NT ND +BS No c/c/e Results/Medications Result Diagram: 04/14/19 0426 04/14/19 0426 Results 24 hrs Laboratory Tests Test 04/13/19 08:36 04/13/19 12:29 04/13/19 17:38 04/13/19 21:06 Bedside Glucose 89 180 174 127 Test 04/14/19 04:26 White Blood Count 0.3 #L Red Blood Count 2.30 L Hemoglobin 7.2 L Hematocrit 20.0 L Mean Corpuscular Volume 87.0 Mean Corpuscular 31.3 Hemoglobin Mean Corpuscular 36.0 Hemoglobin Concent Red Cell Distribution 12.1 Width Platelet Count 16 #*L Mean Platelet Volume 9.8 Immature Granulocytes % 0.000 L Neutrophils % Lymphocytes % Monocytes % Eosinophils % Basophils % Nucleated Red Blood 0.0 Cells % Immature Granulocytes # 0.000 Neutrophils # Lymphocytes # Monocytes # Eosinophils # Basophils # Nucleated Red Blood Cells # Sodium Level 136 Potassium Level 3.5 Chloride Level 105 Carbon Dioxide Level 22 Anion Gap 9 Blood Urea Nitrogen 8 Creatinine 0.49 L Est Glomerular Filtrat > 60 Rate mL/min Glucose Level 101 Uric Acid 1.9 L Calcium Level 7.8 L Total Bilirubin 0.5 Direct Bilirubin 0.00 Indirect Bilirubin 0.5 Aspartate Amino 12 L Transf (AST/SGOT) Alanine 49 Aminotransferase (ALT/SG PT) Alkaline Phosphatase 79 Lactate Dehydrogenase 263 L Total Protein 6.0 L Albumin 2.8 L Globulin 3.20 Albumin/Globulin Ratio 0.87 Home Meds Active Scripts Ibuprofen* (Motrin*) 800 Mg Tab, 800 MG PO Q6H PRN for PAIN AND OR ELEVATED TEMP, #30 TAB Prov:CRISPIN JUSTICE MD 03/22/19 Reported Medications Metoprolol Tartrate* (Lopressor*) 50 Mg Tab, 50 MG PO DAILY, #60 TAB 03/23/19 Lisinopril* (Lisinopril*) 20 Mg Tablet, 20 MG PO DAILY, #30 TAB 03/23/19 Azithromycin* (Azithromycin*) 500 Mg Tablet, 500 MG PO DAILY, TAB START DATE 03/21/19 03/23/19 Acetaminophen* (Acetaminophen*) 325 Mg Tablet, 325 MG PO QID PRN for PAIN AND OR ELEVATED TEMP, #30 TAB 03/23/19 Ondansetron Hcl* (Zofran*) 4 Mg Tab, 4 MG PO TID PRN for NAUSEA AND OR VOMITING, TAB 03/23/19 Metformin Hcl* (Metformin Hcl*) 500 Mg Tablet, 500 MG PO WITH BREAKFAST DINNE, #60 TAB 03/23/19 Medications Current Medications Insulin Aspart (Novolog Insulin Pen) NOVOLOG *MILD* ALGORI... WITH MEALS BEDTIME SC Last administered on 04/13/19 17:44; Admin Dose 1 UNIT; Start 03/23/19 at 18:00 IV Flush (NS 3 ml) 3 ml PER PROTOCOL IV Last administered on 04/08/19 05:29; Admin Dose 3 ML; Start 03/23/19 at 18:00 Ondansetron HCl (Zofran Inj) 4 mg Q6H PRN IV NAUSEA/VOMITING Last administered on 04/09/19 17:54; Admin Dose 4 MG; Start 03/23/19 at 18:00 Acetaminophen (Tylenol Tab) 650 mg Q6H PRN PO .PAIN 1-3 OR TEMP Last administered on 04/13/19 19:44; Admin Dose 650 MG; Start 03/23/19 at 18:00 Acetaminophen/ Hydrocodone Bitart ([place] (5/325)) 1 tab Q6H PRN PO .MOD PAIN 4- 6 Last administered on 04/10/19 03:07; Admin Dose 1 TAB; Start 03/23/19 at 18:00 Miscellaneous Information 1 ea NOTE XX ; Start 03/23/19 at 18:00 Glucose (Glutose) 15 gm Q15M PRN PO DECREASED GLUCOSE; Start 03/23/19 at 18:00 Glucose (Glutose) 22.5 gm Q15M PRN PO DECREASED GLUCOSE; Start 03/23/19 at 18:00 Dextrose (D50w Syringe) 25 ml Q15M PRN IV DECREASED GLUCOSE; Start 03/23/19 at 18:00 Dextrose (D50w Syringe) 50 ml Q15M PRN IV DECREASED GLUCOSE; Start 03/23/19 at 18:00 Glucagon (Glucagen) 1 mg Q15M PRN IM DECREASED GLUCOSE; Start 03/23/19 at 18:00 Glucose (Glutose) 15 gm Q15M PRN BUCCAL DECREASED GLUCOSE; Start 03/23/19 at 18:00 Hydralazine HCl (Apresoline) 10 mg Q4H PRN IV FOR SBP>170; Start 03/26/19 at 03:30 Albuterol/ Ipratropium (Duoneb) 3 ml Q2H RESP THERAPY PRN HHN sob; Start 03/26/19 at 12:30 Fluconazole (Diflucan) 100 mg DAILY PO Last administered on 04/13/19 09:04; A dmin Dose 100 MG; Start 04/02/19 at 15:30 Acyclovir (Zovirax) 400 mg DAILY PO Last administered on 04/13/19 09:03; Admin Dose 400 MG; Start 04/03/19 at 09:00 Levofloxacin (Levaquin) 500 mg DAILY@06 PO Last administered on 04/14/19 06:22; Admin Dose 500 MG; Start 04/03/19 at 06:00 Al Hydrox/Mg Hydrox/Simethicone (Mag-Al Plus) 30 ml Q6H PRN PO GASTROINTESTINAL UPSET Last administered on 04/09/19 13:41; Admin Dose 30 ML; Start 04/02/19 at 18:30 Carvedilol (Coreg) 12.5 mg BID PO Last administered on 04/13/19 21:03; Admin Dose 12.5 MG; Start 04/02/19 at 21:00 Dexamethasone (Maxidex 0.1% Oph) 2 drop BID BOTH EYES Last administered on 04/13/19 21:03; Admin Dose 2 DROP; Start 04/03/19 at 21:00 Lisinopril (Zestril) 20 mg BID PO Last administered on 04/13/19at 21:04; Admin Dose 20 MG; Start 04/05/19 at 21:00 Vancomycin HCl (Vanco Iv Per Pharmacy) VANCOMYCIN PER PHARMACY PER PROTOCOL XX ; Start 04/10/19 at 16:00 Meropenem/Sodium Chloride 50 ml @ 100 mls/hr Q8 IVPB Last administered on 04/14/19at 06:21; Admin Dose 100 MLS/HR; Start 04/10/19 at 17:00 Famotidine (Pepcid) 20 mg DAILY PO Last administered on 04/13/19at 09:04; Admin Dose 20 MG; Start 04/11/19 at 09:00 Magnesium Oxide (Mag-Ox 400) 400 mg BID PO Last administered on 04/13/19at 21:03; Admin Dose 400 MG; Start 04/10/19 at 21:00 Loperamide HCl (Imodium Cap) 2 mg Q8H PRN PO DIARRHEA Last administered on 04/13/19at 09:03; Admin Dose 2 MG; Start 04/13/19 at 09:00 Vancomycin HCl 1.25 gm/Sodium Chloride 250 ml @ 83.333 mls/ hr Q8H IVPB Last administered on 04/14/19at 01:10; Admin Dose 83.333 MLS/HR; Start 04/13/19 at 17:00 Miscellaneous Information (*Rx Drug Level Order Reminder*) VANCO TR LEVEL PRIOR... 1600 ONCE XX ; Start 04/14/19 at 16:00; Stop 04/14/19 at 16:01 Furosemide (Lasix) 20 mg DAILY PO ; Start 04/19/19 at 09:00 Insulin Aspart (Novolog Insulin Pen) 6 unit WITH MEALS SC ; Start 04/14/19 at 07:50 Insulin Glargine (Lantus) 18 units DAILY@2000 SC Last administered on 04/13/19at 21:13; Admin Dose 18 UNITS; Start 04/13/19 at 20:00 Assessment/Plan Assessment/Plan (Daily) IMPRESSION: 1. AML-s/p 7 + 3 induction therapy - awaiting marrow recovery 2. Pancytopenia: due to chemotherapy 3. Neutropenic fever: cx negative to date but on abx. Not spiking FEVERS. 4. Type 2 DM 5. Compensated CHF-no signs of failure PLAN 1. No need for transfusions today (goal to keep plts over 10k and Hb over 7.0). Try to avoid multiple transfusions as this can lead to allo-immunization and make further transfusions difficult 2. Await marrow recovery prior to discharge 3. Cont Abx 4. Check stool for c.diff (negative) SUJEY THOMAS Apr 14, 2019 08:09
[2019-04-14] MEDS: FLUCONAZOLE 100 MG TAB PO SCH (08:52)
[2019-04-14] MEDS: MAGNESIUM OXIDE 400 MG TAB PO SCH ×2 (08:52→21:03)
[2019-04-14] MEDS: FAMOTIDINE 20 MG TAB PO SCH (08:52)
[2019-04-14] MEDS: ACYCLOVIR 400 MG TAB PO SCH (08:52)
[2019-04-14] MEDS: LISINOPRIL 20 MG TAB PO SCH ×2 (08:53→21:03)
[2019-04-14] MEDS: DEXAMETHASONE 0.1% 5 ML OPH BOTH EYES SCH ×2 (08:57→21:03)
--- NOTE | 2019-04-14 12:14 | CONS ---
Assessment/Plan Assessment/Plan Hospital Course (Demo Recall) ID PROGRESS NOTE CURRENT ABX: DAY # =>Doxycycline + Levaquin + Diflucan + Acyclovir s/p Vanco IV + Cefepime POST CHEMO INDUCTION=> DAY # 13 24H INTERVAL SUMMARY * A/A/O -- no new issues -- no fever today -- yesterday TMax 100.3 -- no chills/no rigors -- VSS * Still with loose BMs yet -- C DIFFICILE DNA AMPLIFICATION Final CYTOTOXIGENIC C DIFFICILE NEGATIVE (Ref Range Neg) * Blood cultures and urine culture negative to date * s/p 03/26/[address] guided left iliac bone marrow aspiration and biopsy. * Indwelling's: Right IJ Port-A-Cath DIAGNOSTIC IMAGING * 03/28/19 CXR: Chest x-ray revealed no acute pulmonary abnormality * 04/07/[address]: No acute findings PHYSICAL EXAMINATION: GENERAL: VSS, NAD HEENT: AT, NC, NECK: Supple, CHEST: Rise symmetrical HEART: Pulse RRR ABDOMEN: Benign EXTREMITIES: Warm, dry SKIN: No rash, no diaphoresis ID ASSESSMENT 54 yo M admit with: 1. Ongoing fevers likely secondary to underlying malignancy and neutropenia 2. AML, newly diagnosed 3. Diabetes 4. Hypertension 5. 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 Neutropenic precautions when indicated . Consultation Date/Type/Reason Admit Date/Time Mar 23, 2019 at 16:10 Initial Consult Date 03/24/19 Requesting Provider: KATIE PACE NP Date/Time of Note DATE: 04/14/19 TIME: 12:13 Exam/Review of Systems Exam Vitals Vital Signs Date Temp Pulse Resp B/P (MAP) Pulse Ox O2 O2 Flow FiO2 Time Delivery Rate 04/14/19 98.6 84 131/79 Room Air 07:34 (96) 04/14/19 18 100 06:22 Intake and Output 04/13/19 04/13/19 04/14/19 1515:00 23:00 07:00 IntakeIntake Total 800 ml 550 ml 1100 ml BalanceBalance 800 ml 550 ml 1100 ml Results Result Diagram: 04/14/19 0426 04/14/19 0426 Results 24hrs Laboratory Tests Test 04/13/19 12:29 04/13/19 17:38 04/13/19 21:06 04/14/19 04:26 Bedside Glucose 180 174 127 White Blood Count 0.3 #L Red Blood Count 2.30 L Hemoglobin 7.2 L Hematocrit 20.0 L Mean Corpuscular 87.0 Volume Mean Corpuscular 31.3 Hemoglobin Mean Corpuscular 36.0 Hemoglobin Concent Red Cell Distribution 12.1 Width Platelet Count 16 #*L Mean Platelet Volume 9.8 Immature Granulocytes 0.000 L % Neutrophils % Segmented Neutrophils 4 L % (Manual) Band Neutrophils % 4 (Manual) Lymphocytes % Lymphocytes % 82 H (Manual) Reactive Lymphocytes 2 H % (Manual) Monocytes % Monocytes % (Manual) 8 Eosinophils % Basophils % Nucleated Red Blood 0.0 Cells % Immature Granulocytes 0.000 # Neutrophils # Neutrophils # 0.0 L (Manual) Band Neutrophils # 0.0 Lymphocytes (Manual) 0.2 L Lymphocytes # Reactive Lymphocytes 0.0 # Monocytes # Monocytes # (Manual) 0.0 L Eosinophils # Basophils # Nucleated Red Blood Cells # Platelet Estimate SIG DECREASED Poikilocytosis 1+ Anisocytosis 1+ Sodium Level 136 Potassium Level 3.5 Chloride Level 105 Carbon Dioxide Level 22 Anion Gap 9 Blood Urea Nitrogen 8 Creatinine 0.49 L Est Glomerular > 60 Filtrat Rate mL/min Glucose Level 101 Uric Acid 1.9 L Calcium Level 7.8 L Total Bilirubin 0.5 Direct Bilirubin 0.00 Indirect Bilirubin 0.5 Aspartate Amino 12 L Transf (AST/SGOT) Alanine 49 Aminotransferase (ALT /SGPT) Alkaline Phosphatase 79 Lactate Dehydrogenase 263 L Total Protein 6.0 L Albumin 2.8 L Globulin 3.20 Albumin/Globulin 0.87 Ratio Test 04/14/19 08:50 Bedside Glucose 98 Medications Medication Current Medications Insulin Aspart (Novolog Insulin Pen) NOVOLOG *MILD* ALGORI... WITH MEALS BEDTIME SC Last administered on 04/13/19at 17:44; Admin Dose 1 UNIT; Start 03/23/19 at 18:00 IV Flush (NS 3 ml) 3 ml PER PROTOCOL IV Last administered on 04/08/19 05:29; Admin Dose 3 ML; Start 03/23/19 at 18:00 Ondansetron HCl (Zofran Inj) 4 mg Q6H PRN IV NAUSEA/VOMITING Last administered on 04/09/19 17:54; Admin Dose 4 MG; Start 03/23/19 at 18:00 Acetaminophen (Tylenol Tab) 650 mg Q6H PRN PO .PAIN 1-3 OR TEMP Last administered on 04/13/19 19:44; Admin Dose 650 MG; Start 03/23/19 at 18:00 Acetaminophen/ Hydrocodone Bitart ([place] (5/325)) 1 tab Q6H PRN PO .MOD PAIN 4- 6 Last administered on 04/10/19 03:07; Admin Dose 1 TAB; Start 03/23/19 at 18:00 Miscellaneous Information 1 ea NOTE XX ; Start 03/23/19 at 18:00 Glucose (Glutose) 15 gm Q15M PRN PO DECREASED GLUCOSE; Start 03/23/19 at 18:00 Glucose (Glutose) 22.5 gm Q15M PRN PO DECREASED GLUCOSE; Start 03/23/19 at 18:00 Dextrose (D50w Syringe) 25 ml Q15M PRN IV DECREASED GLUCOSE; Start 03/23/19 at 18:00 Dextrose (D50w Syringe) 50 ml Q15M PRN IV DECREASED GLUCOSE; Start 03/23/19 at 18:00 Glucagon (Glucagen) 1 mg Q15M PRN IM DECREASED GLUCOSE; Start 03/23/19 at 18:00 Glucose (Glutose) 15 gm Q15M PRN BUCCAL DECREASED GLUCOSE; Start 03/23/19 at 18:00 Hydralazine HCl (Apresoline) 10 mg Q4H PRN IV FOR SBP>170; Start 03/26/19 at 03:30 Albuterol/ Ipratropium (Duoneb) 3 ml Q2H RESP THERAPY PRN HHN sob; Start 03/09 05/27 at 12:30 Fluconazole (Diflucan) 100 mg DAILY PO Last administered on 04/14/19 08:52; Admin Dose 100 MG; Start 04/02/19 at 15:30 Acyclovir (Zovirax) 400 mg DAILY PO Last administered on 04/14/19 08:52; Admin Dose 400 MG; Start 04/03/19 at 09:00 Levofloxacin (Levaquin) 500 mg DAILY@06 PO Last administered on 04/14/19 06:22; Admin Dose 500 MG; Start 04/03/19 at 06:00 Al Hydrox/Mg Hydrox/Simethicone (Mag-Al Plus) 30 ml Q6H PRN PO GASTROINTESTINAL UPSET Last administered on 04/09/19 13:41; Admin Dose 30 ML; Start 04/02/19 at 18:30 Carvedilol (Coreg) 12.5 mg BID PO Last administered on 04/14/19 08:53; Admin Dose 12.5 MG; Start 04/02/19 at 21:00 Dexamethasone (Maxidex 0.1% Oph) 2 drop BID BOTH EYES Last administered on 04/14/19 08:57; Admin Dose 2 DROP; Start 04/03/19 at 21:00 Lisinopril (Zestril) 20 mg BID PO Last administered on 04/14/19 08:53; Admin Dose 20 MG; Start 04/05/19 at 21:00 Vancomycin HCl (Vanco Iv Per Pharmacy) VANCOMYCIN PER PHARMACY PER PROTOCOL XX ; Start 04/10/19 at 16:00 Meropenem/Sodium Chloride 50 ml @ 100 mls/hr Q8 IVPB Last administered on 04/14/19 06:21; Admin Dose 100 MLS/HR; Start 04/10/19 at 17:00 Famotidine (Pepcid) 20 mg DAILY PO Last administered on 04/14/19 08:52; Admin Dose 20 MG; Start 04/11/19 at 09:00 Magnesium Oxide (Mag-Ox 400) 400 mg BID PO Last administered on 04/14/19 08:52; Admin Dose 400 MG; Start 04/10/19 at 21:00 Loperamide HCl (Imodium Cap) 2 mg Q8H PRN PO DIARRHEA Last administered on 04/13/19 09:03; Admin Dose 2 MG; Start 04/13/19 at 09:00 Vancomycin HCl 1.25 gm/Sodium Chloride 250 ml @ 83.333 mls/ hr Q8H IVPB Last administered on 04/14/19 08:57; Admin Dose 83.333 MLS/HR; Start 04/13/19 at 17:00 Miscellaneous Information (*Rx Drug Level Order Reminder*) VANCO TR LEVEL PRIOR... 1600 ONCE XX ; Start 04/14/19 at 16:00; Stop 04/14/19 at 16:01 Furosemide (Lasix) 20 mg DAILY PO ; Start 04/19/19 at 09:00 Insulin Aspart (Novolog Insulin Pen) 6 unit WITH MEALS SC Last administered on 04/14/19at 08:54; Admin Dose 6 UNIT; Start 04/14/19 at 07:50 Insulin Glargine (Lantus) 18 units DAILY@2000 SC Last administered on 04/13/19at 21:13; Admin Dose 18 UNITS; Start 04/13/19 at 20:00 LIVIA OSMAN NP Apr 14, 2019 12:14
[2019-04-14 14:00] VITALS: BP 134/70; PULSE 80; RESP 18
--- NOTE | 2019-04-14 16:30 | PN ---
Date/Time of Note Date/Time of Note DATE: 04/14/19 TIME: 16:28 Assessment/Plan VTE Prophylaxis Risk score (from [facility])>0 risk: 5 SCD applied (from [facility]): No SCD contraindicated: low risk/ambulating Pharmacological prophylaxis: NA/contraindicated Pharm contraindication: blood coag disorder Lines/Catheters IV Catheter Type (from [facility]): [place] [facility] line still needed: Yes Urinary Cath still in place: No Assessment/Plan Hospital Course A/P 1) AML; sp induction chemo; stable, monitor 2) Neutropenic fever; cont atb/antiviral 3) CMY; EF=35%. ischemic vs nonischemic; cont bb/acei 4) DM [id number] 5) Metabolic syndrome 6) Pancytopenia -aml vs chemo induced 7) Loose bm's: antibiotic induced/ Benign diarrhea. stool softners decreased. c diff -ve. started imodium. S: 04/10 sp transfusion. fever noted 04/11 no events; low grade fever 04/12 no diarrhea abdominal pain. Low-grade fever. 04/13 transfused platelets. diarrhea noted, but no abd pain. 04/14: No diarrhea. No abdominal pain or fever. O: vss PE no pallor reg s1s2 no mrg ctab; port c/d/i bs+ nt nd no r r g no edema Result Diagram: 04/14/19 0426 04/14/19 0426 Results 24hrs Laboratory Tests Test 04/13/19 17:38 04/13/19 21:06 04/14/19 04:26 04/14/19 08:50 Bedside Glucose 174 127 98 White Blood Count 0.3 #L Red Blood Count 2.30 L Hemoglobin 7.2 L Hematocrit 20.0 L Mean Corpuscular 87.0 Volume Mean Corpuscular 31.3 Hemoglobin Mean Corpuscular 36.0 Hemoglobin Concent Red Cell Distribution 12.1 Width Platelet Count 16 #*L Mean Platelet Volume 9.8 Immature Granulocytes 0.000 L % Neutrophils % Segmented Neutrophils 4 L % (Manual) Band Neutrophils % 4 (Manual) Lymphocytes % Lymphocytes % 82 H (Manual) Reactive Lymphocytes 2 H % (Manual) Monocytes % Monocytes % (Manual) 8 Eosinophils % Basophils % Nucleated Red Blood 0.0 Cells % Immature Granulocytes 0.000 # Neutrophils # Neutrophils # 0.0 L (Manual) Band Neutrophils # 0.0 Lymphocytes (Manual) 0.2 L Lymphocytes # Reactive Lymphocytes 0.0 # Monocytes # Monocytes # (Manual) 0.0 L Eosinophils # Basophils # Nucleated Red Blood Cells # Platelet Estimate SIG DECREASED Poikilocytosis 1+ Anisocytosis 1+ Sodium Level 136 Potassium Level 3.5 Chloride Level 105 Carbon Dioxide Level 22 Anion Gap 9 Blood Urea Nitrogen 8 Creatinine 0.49 L Est Glomerular > 60 Filtrat Rate mL/min Glucose Level 101 Uric Acid 1.9 L Calcium Level 7.8 L Total Bilirubin 0.5 Direct Bilirubin 0.00 Indirect Bilirubin 0.5 Aspartate Amino 12 L Transf (AST/SGOT) Alanine 49 Aminotransferase (ALT /SGPT) Alkaline Phosphatase 79 Lactate Dehydrogenase 263 L Total Protein 6.0 L Albumin 2.8 L Globulin 3.20 Albumin/Globulin 0.87 Ratio Test 04/14/19 12:41 Bedside Glucose 222 H Exam/Review of Systems Exam Vitals Vital Signs Date Temp Pulse Resp B/P (MAP) Pulse Ox O2 O2 Flow FiO2 Time Delivery Rate 04/14/19 98.6 84 131/79 Room Air 07:34 (96) 04/14/19 18 100 06:22 Intake and Output 04/13/19 04/13/19 04/14/19 1414:59 22:59 06:59 IntakeIntake Total 750 ml 600 ml 1050 ml BalanceBalance 750 ml 600 ml 1050 ml Results Results 24hrs Laboratory Tests Test 04/13/19 17:38 04/13/19 21:06 04/14/19 04:26 04/14/19 08:50 Bedside Glucose 174 127 98 White Blood Count 0.3 #L Red Blood Count 2.30 L Hemoglobin 7.2 L Hematocrit 20.0 L Mean Corpuscular 87.0 Volume Mean Corpuscular 31.3 Hemoglobin Mean Corpuscular 36.0 Hemoglobin Concent Red Cell Distribution 12.1 Width Platelet Count 16 #*L Mean Platelet Volume 9.8 Immature Granulocytes 0.000 L % Neutrophils % Segmented Neutrophils 4 L % (Manual) Band Neutrophils % 4 (Manual) Lymphocytes % Lymphocytes % 82 H (Manual) Reactive Lymphocytes 2 H % (Manual) Monocytes % Monocytes % (Manual) 8 Eosinophils % Basophils % Nucleated Red Blood 0.0 Cells % Immature Granulocytes 0.000 # Neutrophils # Neutrophils # 0.0 L (Manual) Band Neutrophils # 0.0 Lymphocytes (Manual) 0.2 L Lymphocytes # Reactive Lymphocytes 0.0 # Monocytes # Monocytes # (Manual) 0.0 L Eosinophils # Basophils # Nucleated Red Blood Cells # Platelet Estimate SIG DECREASED Poikilocytosis 1+ Anisocytosis 1+ Sodium Level 136 Potassium Level 3.5 Chloride Level 105 Carbon Dioxide Level 22 Anion Gap 9 Blood Urea Nitrogen 8 Creatinine 0.49 L Est Glomerular > 60 Filtrat Rate mL/min Glucose Level 101 Uric Acid 1.9 L Calcium Level 7.8 L Total Bilirubin 0.5 Direct Bilirubin 0.00 Indirect Bilirubin 0.5 Aspartate Amino 12 L Transf (AST/SGOT) Alanine 49 Aminotransferase (ALT /SGPT) Alkaline Phosphatase 79 Lactate Dehydrogenase 263 L Total Protein 6.0 L Albumin 2.8 L Globulin 3.20 Albumin/Globulin 0.87 Ratio Test 04/14/19 12:41 Bedside Glucose 222 H Medications Medication Current Medications Insulin Aspart (Novolog Insulin Pen) NOVOLOG *MILD* ALGORI... WITH MEALS BEDTIME SC Last administered on 04/14/19 12:43; Admin Dose 3 UNIT; Start 03/23/19 at 18:00 IV Flush (NS 3 ml) 3 ml PER PROTOCOL IV Last administered on 04/08/19 05:29; Admin Dose 3 ML; Start 03/23/19 at 18:00 Ondansetron HCl (Zofran Inj) 4 mg Q6H PRN IV NAUSEA/VOMITING Last administered on 04/09/19 17:54; Admin Dose 4 MG; Start 03/23/19 at 18:00 Acetaminophen (Tylenol Tab) 650 mg Q6H PRN PO .PAIN 1-3 OR TEMP Last administ ered on 04/13/19 19:44; Admin Dose 650 MG; Start 03/23/19 at 18:00 Acetaminophen/ Hydrocodone Bitart ([place] (5/325)) 1 tab Q6H PRN PO .MOD PAIN 4- 6 Last administered on 04/10/19 03:07; Admin Dose 1 TAB; Start 03/23/19 at 18:00 Miscellaneous Information 1 ea NOTE XX ; Start 03/23/19 at 18:00 Glucose (Glutose) 15 gm Q15M PRN PO DECREASED GLUCOSE; Start 03/23/19 at 18:00 Glucose (Glutose) 22.5 gm Q15M PRN PO DECREASED GLUCOSE; Start 03/23/19 at 18:00 Dextrose (D50w Syringe) 25 ml Q15M PRN IV DECREASED GLUCOSE; Start 03/23/19 at 18:00 Dextrose (D50w Syringe) 50 ml Q15M PRN IV DECREASED GLUCOSE; Start 03/23/19 at 18:00 Glucagon (Glucagen) 1 mg Q15M PRN IM DECREASED GLUCOSE; Start 03/23/19 at 18:00 Glucose (Glutose) 15 gm Q15M PRN BUCCAL DECREASED GLUCOSE; Start 03/23/19 at 18:00 Hydralazine HCl (Apresoline) 10 mg Q4H PRN IV FOR SBP>170; Start 03/26/19 at 03:30 Albuterol/ Ipratropium (Duoneb) 3 ml Q2H RESP THERAPY PRN HHN sob; Start 03/26/19 at 12:30 Fluconazole (Diflucan) 100 mg DAILY PO Last administered on 04/14/19 08:52; Admin Dose 100 MG; Start 04/02/19 at 15:30 Acyclovir (Zovirax) 400 mg DAILY PO Last administered on 04/14/19 08:52; Admin Dose 400 MG; Start 04/03/19 at 09:00 Levofloxacin (Levaquin) 500 mg DAILY@06 PO Last administered on 04/14/19 06:22; Admin Dose 500 MG; Start 04/03/19 at 06:00 Al Hydrox/Mg Hydrox/Simethicone (Mag-Al Plus) 30 ml Q6H PRN PO GASTROINTESTINAL UPSET Last administered on 04/09/19 13:41; Admin Dose 30 ML; Start 04/02/19 at 18:30 Carvedilol (Coreg) 12.5 mg BID PO Last administered on 04/14/19 08:53; Admin Dose 12.5 MG; Start 04/02/19 at 21:00 Dexamethasone (Maxidex 0.1% Oph) 2 drop BID BOTH EYES Last administered on 04/14/19 08:57; Admin Dose 2 DROP; Start 04/03/19 at 21:00 Lisinopril (Zestril) 20 mg BID PO Last administered on 04/14/19 08:53; Admin Dose 20 MG; Start 04/05/19 at 21:00 Vancomycin HCl (Vanco Iv Per Pharmacy) VANCOMYCIN PER PHARMACY PER PROTOCOL XX ; Start 04/10/19 at 16:00 Meropenem/Sodium Chloride 50 ml @ 100 mls/hr Q8 IVPB Last administered on 04/14/19at 14:17; Admin Dose 100 MLS/HR; Start 04/10/19 at 17:00 Famotidine (Pepcid) 20 mg DAILY PO Last administered on 04/14/19 08:52; Admin Dose 20 MG; Start 04/11/19 at 09:00 Magnesium Oxide (Mag-Ox 400) 400 mg BID PO Last administered on 04/14/19 08:52; Admin Dose 400 MG; Start 04/10/19 at 21:00 Loperamide HCl (Imodium Cap) 2 mg Q8H PRN PO DIARRHEA Last administered on 04/13/19 09:03; Admin Dose 2 MG; Start 04/13/19 at 09:00 Vancomycin HCl 1.25 gm/Sodium Chloride 250 ml @ 83.333 mls/ hr Q8H IVPB Last administered on 04/14/19 08:57; Admin Dose 83.333 MLS/HR; Start 04/13/19 at 17:00 Furosemide (Lasix) 20 mg DAILY PO ; Start 04/19/19 at 09:00 Insulin Aspart (Novolog Insulin Pen) 6 unit WITH MEALS SC Last administered on 04/14/19 12:44; Admin Dose 6 UNIT; Start 04/14/19 at 07:50 Insulin Glargine (Lantus) 18 units DAILY@2000 SC Last administered on 04/13/19at 21:13; Admin Dose 18 UNITS; Start 04/13/19 at 20:00 ESPERANZA FAUST MD Apr 14, 2019 16:29
[2019-04-14 19:20] VITALS: BP_SYST 151; PULSE 91; RESP 18
[2019-04-14] MEDS: ACETAMINOPHEN 325 MG TAB PO PRN (19:48)
[2019-04-14] MEDS: INSULIN GLARGINE [LANTus] (100 UNITS/ML) SYG SC SCH (21:07)
[2019-04-14] MEDS: AL HYDROX/MG HYDROX/SIMETH 30 ML CUP PO PRN (22:43)
[2019-04-15] VITALS (11 sets, daily range): BP systolic 121–156; BP diastolic 63–88; PULSE 58–97; RESP 16–19
[2019-04-15] MEDS: VANCOMYCIN HCL 1.25 GM in SOD CHLORIDE 0.9% 250 ML IVPB SCH ×3 (04:46→20:54)
[2019-04-15] MEDS: LEVOFLOXACIN 500 MG TAB PO SCH (05:20)
[2019-04-15] MEDS ORDERED: DIPHENHYDRAMINE 25 MG CAP PO ONE (06:00)
[2019-04-15] MEDS ORDERED: ACETAMINOPHEN 325 MG TAB PO ONE (06:00)
[2019-04-15] MEDS: INSULIN ASPART [NOVOLOG] 3 ML PEN SC SCH ×7 (07:50→21:00)
[2019-04-15] MEDS: MEROPENEM 500MG/50 ML (PMX) 50 ML IVPB SCH ×3 (08:35→22:43)
--- NOTE | 2019-04-15 08:37 | PN ---
Date/Time of Note Date/Time of Note DATE: 04/15/19 TIME: 08:36 Assessment/Plan VTE Prophylaxis Risk score (from Ns)>0 risk: 5 SCD applied (from [facility]): No SCD contraindicated: other Pharmacological prophylaxis: NA/contraindicated Pharm contraindication: thrombocytopenia Lines/Catheters IV [facility] Type [facility]from [facility]): [place] line still needed: Yes Urinary Cath still in place: No Assessment/Plan Hospital Course SUBJECTIVE: Denies any pain or dyspnea. Continues to have fevers. Complains of diarrhea. OBJECTIVE: Physical Exam General: Adequately build 54 year-old male lying in bed in no apparent distress. HEENT: Normocephalic, atraumatic. Eyes: Anicteric sclerae, conjunctivae clear. ENT: Nasal septum midline, oral mucosa moist. Neck supple, no JVD noticed. Respiratory: Bilaterally clear breath sounds. No use of accessory muscles of respiration. No adventitious breath sounds. Cardiovascular: S1, S2 heard. Regular rate and rhythm. Abdomen: Soft, nontender, and nondistended. Bowel sounds positive in all 4 quadrants. Genitourinary: Deferred. Extremities: No cyanosis, no clubbing, no edema. Peripheral pulses palpable. Neurologic: Cranial nerves II through XII grossly intact. The patient is awake, alert, and oriented. Skin: Normal skin turgor. No skin rashes. Labs & Vitals per chart ASSESSMENT & PLAN 54-year-old male with comorbidities including hypertension and diabetes mellitus who presented to the emergency room on 03/22/2019 with febrile illness and was discharged home on oral antibiotics, who was called back on 03/23/2019 as per the instruction of the pathologist for increased blast cells on CBC drawn on 03/22/2019. 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 2. Neutropenic fevers. On antimicrobials as per ID. Reyes cultures remain negative. 3. Diabetes mellitus type 2. Hemoglobin A1c 9.6. Continue the patient on sliding scale insulin along with pre-meal insulin and basal insulin. 4. Hypertension. Continue antihypertensives. 5. Cardiomyopathy. EF of 35-40%. Continue BBs and ACEIs. Cardiology following. 6. Acute CHF exacerbation, systolic dysfunction. Continue diuretic therapy. Switched to oral diuretic therapy. 7. Fluids, electrolytes, and nutrition. Carbohydrate controlled, neutropenic diet. 8. DVT prophylaxis. Bilateral SCDs. 9. Plan. Continue to monitor for any secondary infection. Discharge the patient home once his pancytopenia is improved. Transfusion of blood products will be deferred to oncology. The patient was seen in collaboration with Dr. Avilez. Result Diagram: 04/15/19 0448 04/15/19 0448 Results 24hrs Laboratory Tests Test 04/14/19 08:50 04/14/19 12:41 04/14/19 17:06 04/14/19 17:35 Bedside Glucose 98 222 H 167 Vancomycin Level Trough 9.8 L Test 04/14/19 21:01 04/15/19 01:53 04/15/19 04:48 Bedside Glucose 228 H 131 White Blood Count 0.3 L Red Blood Count 2.24 L Hemoglobin 7.0 L Hematocrit 19.3 L Mean Corpuscular Volume 86.2 Mean Corpuscular 31.3 Hemoglobin Mean Corpuscular 36.3 Hemoglobin Concent Red Cell Distribution 12.0 Width Platelet Count 11 #*L Mean Platelet Volume 9.1 Immature Granulocytes % 0.000 L Neutrophils % Lymphocytes % Monocytes % Eosinophils % Basophils % Nucleated Red Blood 0.0 Cells % Immature Granulocytes # 0.000 Neutrophils # Lymphocytes # Monocytes # Eosinophils # Basophils # Nucleated Red Blood Cells # Sodium Level 133 L Potassium Level 3.6 Chloride Level 103 Carbon Dioxide Level 22 Anion Gap 8 Blood Urea Nitrogen 8 Creatinine 0.50 L Est Glomerular Filtrat > 60 Rate mL/min Glucose Level 99 Uric Acid 1.9 L Calcium Level 7.8 L Total Bilirubin 0.5 Direct Bilirubin 0.00 Indirect Bilirubin 0.5 Aspartate Amino 14 L Transf (AST/SGOT) Alanine 41 Aminotransferase (ALT/SG PT) Alkaline Phosphatase 79 Lactate Dehydrogenase 272 L Total Protein 6.2 Albumin 3.0 L Globulin 3.20 Albumin/Globulin Ratio 0.93 Exam/Review of Systems Exam Vitals Vital Signs Date Temp Pulse Resp B/P (MAP) Pulse Ox O2 O2 Flow FiO2 Time Delivery Rate 04/15/19 99.4 83 19 139/75 99 Room Air 07:39 (96) Intake and Output 04/14/19 04/14/19 04/15/19 1515:00 23:00 07:00 IntakeIntake Total 1900 ml 370 ml 50 ml BalanceBalance 1900 ml 370 ml 50 ml Results Results 24hrs Laboratory Tests Test 04/14/19 08:50 04/14/19 12:41 04/14/19 17:06 04/14/19 17:35 Bedside Glucose 98 222 H 167 Vancomycin Level Trough 9.8 L Test 04/14/19 21:01 04/15/19 01:53 04/15/19 04:48 Bedside Glucose 228 H 131 White Blood Count 0.3 L Red Blood Count 2.24 L Hemoglobin 7.0 L Hematocrit 19.3 L Mean Corpuscular Volume 86.2 Mean Corpuscular 31.3 Hemoglobin Mean Corpuscular 36.3 Hemoglobin Concent Red Cell Distribution 12.0 Width Platelet Count 11 #*L Mean Platelet Volume 9.1 Immature Granulocytes % 0.000 L Neutrophils % Lymphocytes % Monocytes % Eosinophils % Basophils % Nucleated Red Blood 0.0 Cells % Immature Granulocytes # 0.000 Neutrophils # Lymphocytes # Monocytes # Eosinophils # Basophils # Nucleated Red Blood Cells # Sodium Level 133 L Potassium Level 3.6 Chloride Level 103 Carbon Dioxide Level 22 Anion Gap 8 Blood Urea Nitrogen 8 Creatinine 0.50 L Est Glomerular Filtrat > 60 Rate mL/min Glucose Level 99 Uric Acid 1.9 L Calcium Level 7.8 L Total Bilirubin 0.5 Direct Bilirubin 0.00 Indirect Bilirubin 0.5 Aspartate Amino 14 L Transf (AST/SGOT) Alanine 41 Aminotransferase (ALT/SG PT) Alkaline Phosphatase 79 Lactate Dehydrogenase 272 L Total Protein 6.2 Albumin 3.0 L Globulin 3.20 Albumin/Globulin Ratio 0.93 Medications Medication Current Medications Insulin Aspart (Novolog Insulin Pen) NOVOLOG *MILD* ALGORI... WITH MEALS BEDTIME SC Last administered on 04/14/19 21:08; Admin Dose 2 UNIT; Start 03/23/19 at 18:00 IV Flush (NS 3 ml) 3 ml PER PROTOCOL IV Last administered on 04/08/19 05:29; Admin Dose 3 ML; Start 03/23/19 at 18:00 Ondansetron HCl (Zofran Inj) 4 mg Q6H PRN IV NAUSEA/VOMITING Last administered on 04/09/19 17:54; Admin Dose 4 MG; Start 03/23/19 at 18:00 Acetaminophen (Tylenol Tab) 650 mg Q6H PRN PO .PAIN 1-3 OR TEMP Last administered on 04/14/19 19:48; Admin Dose 650 MG; Start 03/23/19 at 18:00 Acetaminophen/ Hydrocodone Bitart ([place] (5/325)) 1 tab Q6H PRN PO .MOD PAIN 4- 6 Last administered on 04/10/19 03:07; Admin Dose 1 TAB; Start 03/23/19 at 18:00 Miscellaneous Information 1 ea NOTE XX ; Start 03/23/19 at 18:00 Glucose (Glutose) 15 gm Q15M PRN PO DECREASED GLUCOSE; Start 03/23/19 at 18:00 Glucose (Glutose) 22.5 gm Q15M PRN PO DECREASED GLUCOSE; Start 03/23/19 at 18:00 Dextrose (D50w Syringe) 25 ml Q15M PRN IV DECREASED GLUCOSE; Start 03/23/19 at 18:00 Dextrose (D50w Syringe) 50 ml Q15M PRN IV DECREASED GLUCOSE; Start 03/23/19 at 18:00 Glucagon (Glucagen) 1 mg Q15M PRN IM DECREASED GLUCOSE; Start 03/23/19 at 18:00 Glucose (Glutose) 15 gm Q15M PRN BUCCAL DECREASED GLUCOSE; Start 03/23/19 at 18:00 Hydralazine HCl (Apresoline) 10 mg Q4H PRN IV FOR SBP>170; Start 03/26/19 at 03:30 Albuterol/ Ipratropium (Duoneb) 3 ml Q2H RESP THERAPY PRN HHN sob; Start 03/26/19 at 12:30 Fluconazole (Diflucan) 100 mg DAILY PO Last administered on 04/14/19 08:52; Admin Dose 100 MG; Start 04/02/19 at 15:30 Acyclovir (Zovirax) 400 mg DAILY PO Last administered on 04/14/19 08:52; Admin Dose 400 MG; Start 04/03/19 at 09:00 Levofloxacin (Levaquin) 500 mg DAILY@06 PO Last administered on 04/15/19 05:20; Admin Dose 500 MG; Start 04/03/19 at 06:00 Al Hydrox/Mg Hydrox/Simethicone (Mag-Al Plus) 30 ml Q6H PRN PO GASTROINTESTINAL UPSET Last administered on 04/14/19 22:43; Admin Dose 30 ML; Start 04/02/19 at 18:30 Carvedilol (Coreg) 12.5 mg BID PO Last administered on 04/14/19 21:03; Admin Dose 12.5 MG; Start 04/02/19 at 21:00 Dexamethasone (Maxidex 0.1% Oph) 2 drop BID BOTH EYES Last administered on 04/14/19 21:03; Admin Dose 2 DROP; Start 04/03/19 at 21:00 Lisinopril (Zestril) 20 mg BID PO Last administered on 04/14/19 21:03; Admin Dose 20 MG; Start 04/05/19 at 21:00 Vancomycin HCl (Vanco Iv Per Pharmacy) VANCOMYCIN PER PHARMACY PER PROTOCOL XX ; Start 04/10/19 at 16:00 Meropenem/Sodium Chloride 50 ml @ 100 mls/hr Q8 IVPB Last administered on 04/14/19 22:43; Admin Dose 100 MLS/HR; Start 04/10/19 at 17:00 Famotidine (Pepcid) 20 mg DAILY PO Last administered on 04/14/19 08:52; Admin Dose 20 MG; Start 04/11/19 at 09:00 Magnesium Oxide (Mag-Ox 400) 400 mg BID PO Last administered on 04/14/19 21:03; Admin Dose 400 MG; Start 04/10/19 at 21:00 Loperamide HCl (Imodium Cap) 2 mg Q8H PRN PO DIARRHEA Last administered on 04/13/19 09:03; Admin Dose 2 MG; Start 04/13/19 at 09:00 Vancomycin HCl 1.25 gm/Sodium Chloride 250 ml @ 83.333 mls/ hr Q8H IVPB Last administered on 04/15/19 04:46; Admin Dose 83.333 MLS/HR; Start 04/13/19 at 17:00 Furosemide (Lasix) 20 mg DAILY PO ; Start 04/19/19 at 09:00 Insulin Aspart (Novolog Insulin Pen) 6 unit WITH MEALS SC Last administered on 04/14/19 17:37; Admin Dose 6 UNIT; Start 04/14/19 at 07:50 Insulin Glargine (Lantus) 18 units DAILY@2000 SC Last administered on 04/14/19 21:07; Admin Dose 18 UNITS; Start 04/13/19 at 20:00 KATIE PACE NP Apr 15, 2019 08:37
[2019-04-15] MEDS: MAGNESIUM OXIDE 400 MG TAB PO SCH ×2 (08:40→20:51)
[2019-04-15] MEDS: FLUCONAZOLE 100 MG TAB PO SCH (08:40)
[2019-04-15] MEDS: DEXAMETHASONE 0.1% 5 ML OPH BOTH EYES SCH ×2 (08:40→20:54)
[2019-04-15] MEDS: LOPERAMIDE 2 MG CAP PO PRN (08:40)
[2019-04-15] MEDS: ACYCLOVIR 400 MG TAB PO SCH (08:41)
[2019-04-15] MEDS: LISINOPRIL 20 MG TAB PO SCH ×2 (08:41→20:52)
[2019-04-15] MEDS: FAMOTIDINE 20 MG TAB PO SCH (08:41)
[2019-04-15] MEDS: ACETAMINOPHEN 325 MG TAB PO PRN (10:57)
[2019-04-15] MEDS: SACCHAROMYCES BOULARDII 250 MG CAP PO SCH ×2 (12:48→22:42)
--- NOTE | 2019-04-15 14:39 | CONS ---
Assessment/Plan Assessment/Plan Hospital Course (Demo Recall) ID PROGRESS NOTE CURRENT ABX: DAY # =>Doxycycline + Levaquin + Diflucan + Acyclovir s/p Vanco IV + Cefepime POST CHEMO INDUCTION=> DAY # 14 24H INTERVAL SUMMARY * A/A/O -- remains neutropenic, TMax today 99.9 -- no chills/no rigors -- VSS * Still with loose BMs continued diarrhea -- C DIFFICILE DNA AMPLIFICATION Final CYTOTOXIGENIC C DIFFICILE NEGATIVE (Ref Range Neg) * Blood cultures and urine culture negative to date * s/p 03/26/[address] guided left iliac bone marrow aspiration and bio psy. * Indwelling's: Right IJ Port-A-Cath DIAGNOSTIC IMAGING * 03/28/19 CXR: Chest x-ray revealed no acute pulmonary abnormality * 04/07/[address]: No acute findings PHYSICAL EXAMINATION: GENERAL: VSS, NAD HEENT: AT, NC, NECK: Supple, CHEST: Rise symmetrical HEART: Pulse RRR ABDOMEN: Benign EXTREMITIES: Warm, dry SKIN: No rash, no diaphoresis ID ASSESSMENT 54 yo M admit with: 1. Ongoing fevers likely secondary to underlying malignancy and neutropenia 2. AML, newly diagnosed 3. Diabetes 4. Hypertension 5. 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 Continue current ABX = PROPHYLAXIS per ID [employer] colleague notes * PRN => If fever increased to 101, start Vanco IV + Merrem and DC Doxycycline/Levaquin 2. Neutropenic precautions when indicated . Consultation Date/Type/Reason Admit Date/Time Mar 23, 2019 at 16:10 Initial Consult Date 03/24/19 Requesting Provider: KATIE PACE NP Date/Time of Note DATE: 04/15/19 TIME: 14:37 Exam/Review of Systems Exam Vitals Vital Signs Date Temp Pulse Resp B/P (MAP) Pulse Ox O2 O2 Flow FiO2 Time Delivery Rate 04/15/19 99.1 86 16 121/67 98 Room Air 13:20 (85) Intake and Output 04/14/19 04/14/19 04/15/19 1515:00 23:00 07:00 IntakeIntake Total 1900 ml 370 ml 50 ml BalanceBalance 1900 ml 370 ml 50 ml Results Result Diagram: 04/15/19 0448 04/15/19 0448 Results 24hrs Laboratory Tests Test 04/14/19 17:06 04/14/19 17:35 04/14/19 21:01 04/15/19 01:53 Vancomycin Level Trough 9.8 L Bedside Glucose 167 228 H 131 Test 04/15/19 04:48 04/15/19 08:35 04/15/19 12:44 White Blood Count 0.3 L Red Blood Count 2.24 L Hemoglobin 7.0 L Hematocrit 19.3 L Mean Corpuscular Volume 86.2 Mean Corpuscular 31.3 Hemoglobin Mean Corpuscular 36.3 Hemoglobin Concent Red Cell Distribution 12.0 Width Platelet Count 11 #*L Mean Platelet Volume 9.1 Immature Granulocytes % 0.000 L Neutrophils % Segmented Neutrophils 4 L % (Manual) Band Neutrophils % 3 (Manual) Lymphocytes % Lymphocytes % (Manual) 89 H Monocytes % Monocytes % (Manual) 3 Eosinophils % Basophils % Blast Cells % (Manual) 1.0 H Nucleated Red Blood 0.0 Cells % Immature Granulocytes # 0.000 Neutrophils # Neutrophils # (Manual) 0.0 L Band Neutrophils # 0.0 Lymphocytes (Manual) 0.2 L Lymphocytes # Monocytes # Monocytes # (Manual) 0.0 L Eosinophils # Basophils # Nucleated Red Blood Cells # Sodium Level 133 L Potassium Level 3.6 Chloride Level 103 Carbon Dioxide Level 22 Anion Gap 8 Blood Urea Nitrogen 8 Creatinine 0.50 L Est Glomerular Filtrat > 60 Rate mL/min Glucose Level 99 Uric Acid 1.9 L Calcium Level 7.8 L Total Bilirubin 0.5 Direct Bilirubin 0.00 Indirect Bilirubin 0.5 Aspartate Amino 14 L Transf (AST/SGOT) Alanine 41 Aminotransferase (ALT/SG PT) Alkaline Phosphatase 79 Lactate Dehydrogenase 272 L Total Protein 6.2 Albumin 3.0 L Globulin 3.20 Albumin/Globulin Ratio 0.93 Bedside Glucose 97 186 Medications Medication Current Medications Insulin Aspart (Novolog Insulin Pen) NOVOLOG *MILD* ALGORI... WITH MEALS BEDTIME SC Last administered on 04/15/19at 12:47; Admin Dose 2 UNIT; Start 03/23/19 at 18:00 IV Flush (NS 3 ml) 3 ml PER PROTOCOL IV Last administered on 7/1/19at 05:29; Admin Dose 3 ML; Start 03/23/19 at 18:00 Ondansetron HCl (Zofran Inj) 4 mg Q6H PRN IV NAUSEA/VOMITING Last administered on 04/09/19 17:54; Admin Dose 4 MG; Start 03/23/19 at 18:00 Acetaminophen (Tylenol Tab) 650 mg Q6H PRN PO .PAIN 1-3 OR TEMP Last admin istered on 04/15/19 10:57; Admin Dose 650 MG; Start 03/23/19 at 18:00 Acetaminophen/ Hydrocodone Bitart (Ray (5/325)) 1 tab Q6H PRN PO .MOD PAIN 4- 6 Last administered on 04/10/19 03:07; Admin Dose 1 TAB; Start 03/23/19 at 18:00 Miscellaneous Information 1 ea NOTE XX ; Start 03/23/19 at 18:00 Glucose (Glutose) 15 gm Q15M PRN PO DECREASED GLUCOSE; Start 03/23/19 at 18:00 Glucose (Glutose) 22.5 gm Q15M PRN PO DECREASED GLUCOSE; Start 03/23/19 at 18:00 Dextrose (D50w Syringe) 25 ml Q15M PRN IV DECREASED GLUCOSE; Start 03/23/19 at 18:00 Dextrose (D50w Syringe) 50 ml Q15M PRN IV DECREASED GLUCOSE; Start 03/23/19 at 18:00 Glucagon (Glucagen) 1 mg Q15M PRN IM DECREASED GLUCOSE; Start 03/23/19 at 18:00 Glucose (Glutose) 15 gm Q15M PRN BUCCAL DECREASED GLUCOSE; Start 03/23/19 at 18:00 Hydralazine HCl (Apresoline) 10 mg Q4H PRN IV FOR SBP>170; Start 03/26/19 at 03:30 Albuterol/ Ipratropium (Duoneb) 3 ml Q2H RESP THERAPY PRN HHN sob; Start 03/26/19 at 12:30 Fluconazole (Diflucan) 100 mg DAILY PO Last administered on 04/15/19 08:40; Admin Dose 100 MG; Start 04/02/19 at 15:30 Acyclovir (Zovirax) 400 mg DAILY PO Last administered on 04/15/19 08:41; Admin Dose 400 MG; Start 04/03/19 at 09:00 Levofloxacin (Levaquin) 500 mg DAILY@06 PO Last administered on 04/15/19 05:20; Admin Dose 500 MG; Start 04/03/19 at 06:00 Al Hydrox/Mg Hydrox/Simethicone (Mag-Al Plus) 30 ml Q6H PRN PO GASTROINTESTINAL UPSET Last administered on 04/14/19 22:43; Admin Dose 30 ML; Start 04/02/19 at 18:30 Carvedilol (Coreg) 12.5 mg BID PO Last administered on 04/15/19 08:40; Admin Dose 12.5 MG; Start 04/02/19 at 21:00 Dexamethasone (Maxidex 0.1% Oph) 2 drop BID BOTH EYES Last administered on 04/15/19 08:40; Admin Dose 2 DROP; Start 04/03/19 at 21:00 Lisinopril (Zestril) 20 mg BID PO Last administered on 04/15/19 08:41; Admin Dose 20 MG; Start 04/05/19 at 21:00 Vancomycin HCl (Vanco Iv Per Pharmacy) VANCOMYCIN PER PHARMACY PER PROTOCOL XX ; Start 04/10/19 at 16:00 Meropenem/Sodium Chloride 50 ml @ 100 mls/hr Q8 IVPB Last administered on 04/15/19 08:35; Admin Dose 100 MLS/HR; Start 04/10/19 at 17:00 Famotidine (Pepcid) 20 mg DAILY PO Last administered on 04/15/19 08:41; Admin Dose 20 MG; Start 04/11/19 at 09:00 Magnesium Oxide (Mag-Ox 400) 400 mg BID PO Last administered on 04/15/19 08:40; Admin Dose 400 MG; Start 04/10/19 at 21:00 Loperamide HCl (Imodium Cap) 2 mg Q8H PRN PO DIARRHEA Last administered on 04/15/19 08:40; Admin Dose 2 MG; Start 04/13/19 at 09:00 Vancomycin HCl 1.25 gm/Sodium Chloride 250 ml @ 83.333 mls/ hr Q8H IVPB Last administered on 04/15/19 12:27; Admin Dose 83.333 MLS/HR; Start 04/13/19 at 17:00 Furosemide (Lasix) 20 mg DAILY PO ; Start 04/19/19 at 09:00 Insulin Aspart (Novolog Insulin Pen) 6 unit WITH MEALS SC Last administered on 04/15/19at 12:48; Admin Dose 6 UNIT; Start 04/14/19 at 07:50 Insulin Glargine (Lantus) 18 units DAILY@2000 SC Last administered on 04/14/19 21:07; Admin Dose 18 UNITS; Start 04/13/19 at 20:00 Saccharomyces Boulardii (Florastor) 500 mg BID PO Last administered on 04/15/19at 12:48; Admin Dose 500 MG; Start 04/15/19 at 11:00 LIVIA OSMAN NP Apr 15, 2019 14:39
--- NOTE | 2019-04-15 16:11 | PN ---
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 He has .low grade fever and minimal loose stool. He feels tired but alright. RBC transfusion given today. Will recheck labs in AM. I expect about ten more days before WBC will recover significantly. Result Diagram: 04/15/19 0448 04/15/198 Results 24hrs Laboratory Tests Test 04/14/19 17:06 04/14/19 17:35 04/14/19 21:01 04/15/19 01:53 Vancomycin Level Trough 9.8 L Bedside Glucose 167 228 H 131 Test 04/15/19 04:48 04/15/19 08:35 04/15/19 12:44 White Blood Count 0.3 L Red Blood Count 2.24 L Hemoglobin 7.0 L Hematocrit 19.3 L Mean Corpuscular Volume 86.2 Mean Corpuscular 31.3 Hemoglobin Mean Corpuscular 36.3 Hemoglobin Concent Red Cell Distribution 12.0 Width Platelet Count 11 #*L Mean Platelet Volume 9.1 Immature Granulocytes % 0.000 L Neutrophils % Segmented Neutrophils 4 L % (Manual) Band Neutrophils % 3 (Manual) Lymphocytes % Lymphocytes % (Manual) 89 H Monocytes % Monocytes % (Manual) 3 Eosinophils % Basophils % Blast Cells % (Manual) 1.0 H Nucleated Red Blood 0.0 Cells % Immature Granulocytes # 0.000 Neutrophils # Neutrophils # (Manual) 0.0 L Band Neutrophils # 0.0 Lymphocytes (Manual) 0.2 L Lymphocytes # Monocytes # Monocytes # (Manual) 0.0 L Eosinophils # Basophils # Nucleated Red Blood Cells # Sodium Level 133 L Potassium Level 3.6 Chloride Level 103 Carbon Dioxide Level 22 Anion Gap 8 Blood Urea Nitrogen 8 Creatinine 0.50 L Est Glomerular Filtrat > 60 Rate mL/min Glucose Level 99 Uric Acid 1.9 L Calcium Level 7.8 L Total Bilirubin 0.5 Direct Bilirubin 0.00 Indirect Bilirubin 0.5 Aspartate Amino 14 L Transf (AST/SGOT) Alanine 41 Aminotransferase (ALT/SG PT) Alkaline Phosphatase 79 Lactate Dehydrogenase 272 L Total Protein 6.2 Albumin 3.0 L Globulin 3.20 Albumin/Globulin Ratio 0.93 Bedside Glucose 97 186 Subjective 24 Hr Interval Summary Free Text/Dictation t is tired but otherwise feels okay. Exam/Review of Systems Exam Vitals Vital Signs Date Temp Pulse Resp B/P (MAP) Pulse Ox O2 O2 Flow FiO2 Time Delivery Rate 04/15/19 99.1 86 16 121/67 98 Room Air 13:20 (85) Intake and Output 04/14/19 04/14/19 04/15/19 1515:00 23:00 07:00 IntakeIntake Total 1900 ml 370 ml 50 ml BalanceBalance 1900 ml 370 ml 50 ml Constitutional: alert, oriented Head: normocephalic Eyes: other (conjunctival pallor) ENMT: nl external ears & nose Neck: supple, other (right infraclavicular [place]) Respiratory: clear to auscultation Cardiovascular: regular rate and rhythm Gastrointestinal: soft, nl liver, spleen (no calf tenderness, Antonino's sign), non-tender Skin: ecchymosis (small ecchymosis over the SQ line from [place]) Lymph: nl lymph nodes Results Results 24hrs Laboratory Tests Test 04/14/19 17:06 04/14/19 17:35 04/14/19 21:01 04/15/19 01:53 Vancomycin Level Trough 9.8 L Bedside Glucose 167 228 H 131 Test 04/15/19 04:48 04/15/19 08:35 04/15/19 12:44 White Blood Count 0.3 L Red Blood Count 2.24 L Hemoglobin 7.0 L Hematocrit 19.3 L Mean Corpuscular Volume 86.2 Mean Corpuscular 31.3 Hemoglobin Mean Corpuscular 36.3 Hemoglobin Concent Red Cell Distribution 12.0 Width Platelet Count 11 #*L Mean Platelet Volume 9.1 Immature Granulocytes % 0.000 L Neutrophils % Segmented Neutrophils 4 L % (Manual) Band Neutrophils % 3 (Manual) Lymphocytes % Lymphocytes % (Manual) 89 H Monocytes % Monocytes % (Manual) 3 Eosinophils % Basophils % Blast Cells % (Manual) 1.0 H Nucleated Red Blood 0.0 Cells % Immature Granulocytes # 0.000 Neutrophils # Neutrophils # (Manual) 0.0 L Band Neutrophils # 0.0 Lymphocytes (Manual) 0.2 L Lymphocytes # Monocytes # Monocytes # (Manual) 0.0 L Eosinophils # Basophils # Nucleated Red Blood Cells # Sodium Level 133 L Potassium Level 3.6 Chloride Level 103 Carbon Dioxide Level 22 Anion Gap 8 Blood Urea Nitrogen 8 Creatinine 0.50 L Est Glomerular Filtrat > 60 Rate mL/min Glucose Level 99 Uric Acid 1.9 L Calcium Level 7.8 L Total Bilirubin 0.5 Direct Bilirubin 0.00 Indirect Bilirubin 0.5 Aspartate Amino 14 L Transf (AST/SGOT) Alanine 41 Aminotransferase (ALT/SG PT) Alkaline Phosphatase 79 Lactate Dehydrogenase 272 L Total Protein 6.2 Albumin 3.0 L Globulin 3.20 Albumin/Globulin Ratio 0.93 Bedside Glucose 97 186 Medications Medication Current Medications Insulin Aspart (Novolog Insulin Pen) NOVOLOG *MILD* ALGORI... WITH MEALS BEDTIME SC Last administered on 04/15/19 12:47; Admin Dose 2 UNIT; Start 03/23/19 at 18:00 IV Flush (NS 3 ml) 3 ml PER PROTOCOL IV Last administered on 04/08/19 05:29; Admin Dose 3 ML; Start 03/23/19 at 18:00 Ondansetron HCl (Zofran Inj) 4 mg Q6H PRN IV NAUSEA/VOMITING Last administered on 04/09/19 17:54; Admin Dose 4 MG; Start 03/23/19 at 18:00 Acetaminophen (Tylenol Tab) 650 mg Q6H PRN PO .PAIN 1-3 OR TEMP Last administered on 04/15/19 10:57; Admin Dose 650 MG; Start 03/23/19 at 18:00 Acetaminophen/ Hydrocodone Bitart ([place] (5/325)) 1 tab Q6H PRN PO .MOD PAIN 4- 6 Last administered on 04/10/19 03:07; Admin Dose 1 TAB; Start 03/23/19 at 18:00 Miscellaneous Information 1 ea NOTE XX ; Start 03/23/19 at 18:00 Glucose (Glutose) 15 gm Q15M PRN PO DECREASED GLUCOSE; Start 03/23/19 at 18:00 Glucose (Glutose) 22.5 gm Q15M PRN PO DECREASED GLUCOSE; Start 03/23/19 at 18:00 Dextrose (D50w Syringe) 25 ml Q15M PRN IV DECREASED GLUCOSE; Start 03/23/19 at 18:00 Dextrose (D50w Syringe) 50 ml Q15M PRN IV DECREASED GLUCOSE; Start 03/23/19 at 18:00 Glucagon (Glucagen) 1 mg Q15M PRN IM DECREASED GLUCOSE; Start 03/23/19 at 18:00 Glucose (Glutose) 15 gm Q15M PRN BUCCAL DECREASED GLUCOSE; Start 03/23/19 at 18:00 Hydralazine HCl (Apresoline) 10 mg Q4H PRN IV FOR SBP>170; Start 03/26/19 at 03:30 Albuterol/ Ipratropium (Duoneb) 3 ml Q2H RESP THERAPY PRN HHN sob; Start 03/26/19 at 12:30 Fluconazole (Diflucan) 100 mg DAILY PO Last administered on 04/15/19 08:40; Admin Dose 100 MG; Start 04/02/19 at 15:30 Acyclovir (Zovirax) 400 mg DAILY PO Last administered on 04/15/19 08:41; Admin Dose 400 MG; Start 04/03/19 at 09:00 Levofloxacin (Levaquin) 500 mg DAILY@06 PO Last administered on 04/15/19 05:20; Admin Dose 500 MG; Start 04/03/19 at 06:00 Al Hydrox/Mg Hydrox/Simethicone (Mag-Al Plus) 30 ml Q6H PRN PO GASTROINTESTINAL UPSET Last administered on 04/14/19at 22:43; Admin Dose 30 ML; Start 04/02/19 at 18:30 Carvedilol (Coreg) 12.5 mg BID PO Last administered on 04/15/19 08:40; Admin Dose 12.5 MG; Start 04/02/19 at 21:00 Dexamethasone (Maxidex 0.1% Oph) 2 drop BID BOTH EYES Last administered on 04/15/19 08:40; Admin Dose 2 DROP; Start 04/03/19 at 21:00 Lisinopril (Zestril) 20 mg BID PO Last administered on 04/15/19 08:41; Admin Dose 20 MG; Start 04/05/19 at 21:00 Vancomycin HCl (Vanco Iv Per Pharmacy) VANCOMYCIN PER PHARMACY PER PROTOCOL XX ; Start 04/10/19 at 16:00 Meropenem/Sodium Chloride 50 ml @ 100 mls/hr Q8 IVPB Last administered on 04/15/19 08:35; Admin Dose 100 MLS/HR; Start 04/10/19 at 17:00 Famotidine (Pepcid) 20 mg DAILY PO Last administered on 04/15/19 08:41; Admin Dose 20 MG; Start 04/11/19 at 09:00 Magnesium Oxide (Mag-Ox 400) 400 mg BID PO Last administered on 04/15/19 08:40; Admin Dose 400 MG; Start 04/10/19 at 21:00 Loperamide HCl (Imodium Cap) 2 mg Q8H PRN PO DIARRHEA Last administered on 04/15/19 08:40; Admin Dose 2 MG; Start 04/13/19 at 09:00 Vancomycin HCl 1.25 gm/Sodium Chloride 250 ml @ 83.333 mls/ hr Q8H IVPB Last administered on 04/15/19 12:27; Admin Dose 83.333 MLS/HR; Start 04/13/19 at 17:00 Furosemide (Lasix) 20 mg DAILY PO ; Start 04/19/19 at 09:00 Insulin Aspart (Novolog Insulin Pen) 6 unit WITH MEALS SC Last administered on 04/15/19 12:48; Admin Dose 6 UNIT; Start 04/14/19 at 07:50 Insulin Glargine (Lantus) 18 units DAILY@2000 SC Last administered on 04/14/19 21:07; Admin Dose 18 UNITS; Start 04/13/19 at 20:00 Saccharomyces Boulardii (Florastor) 500 mg BID PO Last administered on 04/15/19 12:48; Admin Dose 500 MG; Start 04/15/19 at 11:00 BETTE MALDONADO MD Apr 15, 2019 16:11
[2019-04-15] MEDS ORDERED: ACETAMINOPHEN 325 MG TAB PO SCH (17:30)
[2019-04-15] MEDS ORDERED: DIPHENHYDRAMINE 25 MG CAP PO SCH (17:30)
[2019-04-15] MEDS: INSULIN GLARGINE [LANTus] (100 UNITS/ML) SYG SC SCH (21:02)
[2019-04-16 01:43] VITALS: BP 135/72; PULSE 90; RESP 18
[2019-04-16] MEDS: VANCOMYCIN HCL 1.25 GM in SOD CHLORIDE 0.9% 250 ML IVPB SCH ×4 (04:00→22:28)
--- NOTE | 2019-04-16 05:48 | PN ---
Date/Time of Note Date/Time of Note DATE: 04/16/19 TIME: 05:48 Assessment/Plan VTE Prophylaxis Risk score (from [facility])>0 risk: 5 SCD applied (from [facility]): Yes Pharmacological prophylaxis: NA/contraindicated Pharm contraindication: thrombocytopenia Lines/Catheters [facility] [place] line still needed: Yes Urinary Cath still in place: No Assessment/Plan Hospital Course SUBJECTIVE: Denies any pain or dyspnea. OBJECTIVE: Physical Exam General: Adequately build 54 year-old male lying in bed in no apparent distress. HEENT: Normocephalic, atraumatic. Eyes: Anicteric sclerae, conjunctivae clear. ENT: Nasal septum midline, oral mucosa moist. Neck supple, no JVD noticed. Respiratory: Bilaterally clear breath sounds. No use of accessory muscles of respiration. No adventitious breath sounds. Cardiovascular: S1, S2 heard. Regular rate and rhythm. Abdomen: Soft, nontender, and nondistended. Bowel sounds positive in all 4 quadrants. Genitourinary: Deferred. Extremities: No cyanosis, no clubbing, no edema. Peripheral pulses palpable. Neurologic: Cranial nerves II through XII grossly intact. The patient is awake, alert, and oriented. Skin: Normal skin turgor. No skin rashes. Labs & Vitals per chart ASSESSMENT & PLAN 54-year-old male with comorbidities including hypertension and diabetes mellitus who presented to the emergency room on 03/22/2019 with febrile illness and was discharged home on oral antibiotics, who was called back on 03/23/2019 as per the instruction of the pathologist for increased blast cells on CBC drawn on 03/22/2019. 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 2. Neutropenic fevers. On antimicrobials as per ID. Reyes cultures remain negative. 3. Diabetes mellitus type 2. Hemoglobin A1c 9.6. Continue the patient on sliding scale insulin along with pre-meal insulin and basal insulin. 4. Hypertension. Continue antihypertensives. 5. Cardiomyopathy. EF of 35-40%. Continue BBs and ACEIs. Cardiology following. 6. Acute CHF exacerbation, systolic dysfunction. Continue diuretic therapy. Switched to oral diuretic therapy. 7. Fluids, electrolytes, and nutrition. Carbohydrate controlled, neutropenic diet. 8. DVT prophylaxis. Bilateral SCDs. 9. Plan. Continue to monitor for any secondary infection. Discharge the patient home once his pancytopenia is improved. Transfusion of blood products will be deferred to oncology. Replete potassium. The patient was seen in collaboration with Dr. Avilez. Result Diagram: 04/16/19 0427 04/15/19 0448 Results 24hrs Laboratory Tests Test 04/15/19 08:35 04/15/19 12:44 04/15/19 17:48 04/15/19 21:00 Bedside Glucose 97 186 114 139 Test 04/16/19 04:27 White Blood Count 0.4 #L Red Blood Count 2.38 L Hemoglobin 7.4 L Hematocrit 20.3 L Mean Corpuscular Volume 85.3 Mean Corpuscular 31.1 Hemoglobin Mean Corpuscular 36.5 Hemoglobin Concent Red Cell Distribution 12.3 Width Platelet Count 40 #L Mean Platelet Volume 9.9 Immature Granulocytes % 0.000 L Neutrophils % Lymphocytes % Monocytes % Eosinophils % Basophils % Nucleated Red Blood 0.0 Cells % Immature Granulocytes # 0.000 Neutrophils # Lymphocytes # Monocytes # Eosinophils # Basophils # Nucleated Red Blood Cells # Exam/Review of Systems Exam Vitals Vital Signs Date Temp Pulse Resp B/P (MAP) Pulse Ox O2 O2 Flow FiO2 Time Delivery Rate 04/16/19 96 21 02:50 04/16/19 90 18 135/72 01:43 (93) 04/15/19 99.2 Room Air 21:40 Intake and Output 04/15/19 04/15/19 04/16/19 1515:00 23:00 07:00 IntakeIntake Total 1100 ml 1790 ml 300 ml BalanceBalance 1100 ml 1790 ml 300 ml Results Results 24hrs Laboratory Tests Test 04/15/19 08:35 04/15/19 12:44 04/15/19 17:48 04/15/19 21:00 Bedside Glucose 97 186 114 139 Test 04/16/19 04:27 White Blood Count 0.4 #L Red Blood Count 2.38 L Hemoglobin 7.4 L Hematocrit 20.3 L Mean Corpuscular Volume 85.3 Mean Corpuscular 31.1 Hemoglobin Mean Corpuscular 36.5 Hemoglobin Concent Red Cell Distribution 12.3 Width Platelet Count 40 #L Mean Platelet Volume 9.9 Immature Granulocytes % 0.000 L Neutrophils % Lymphocytes % Monocytes % Eosinophils % Basophils % Nucleated Red Blood 0.0 Cells % Immature Granulocytes # 0.000 Neutrophils # Lymphocytes # Monocytes # Eosinophils # Basophils # Nucleated Red Blood Cells # Medications Medication Current Medications Insulin Aspart (Novolog Insulin Pen) NOVOLOG *MILD* ALGORI... WITH MEALS BEDTIME SC Last administered on 04/15/19 12:47; Admin Dose 2 UNIT; Start 03/23/19 at 18:00 IV Flush (NS 3 ml) 3 ml PER PROTOCOL IV Last administered on 04/08/19 05:29; Admin Dose 3 ML; Start 03/23/19 at 18:00 Ondansetron HCl (Zofran Inj) 4 mg Q6H PRN IV NAUSEA/VOMITING Last administered on 04/09/19 17:54; Admin Dose 4 MG; Start 03/23/19 at 18:00 Acetaminophen (Tylenol Tab) 650 mg Q6H PRN PO .PAIN 1-3 OR TEMP Last administered on 04/15/19 10:57; Admin Dose 650 MG; Start 03/23/19 at 18:00 Acetaminophen/ Hydrocodone Bitart ([place] (5/325)) 1 tab Q6H PRN PO .MOD PAIN 4- 6 Last administered on 04/10/19 03:07; Admin Dose 1 TAB; Start 03/23/19 at 18:00 Miscellaneous Information 1 ea NOTE XX ; Start 03/23/19 at 18:00 Glucose (Glutose) 15 gm Q15M PRN PO DECREASED GLUCOSE; Start 03/23/19 at 18:00 Glucose (Glutose) 22.5 gm Q15M PRN PO DECREASED GLUCOSE; Start 03/23/19 at 18:00 Dextrose (D50w Syringe) 25 ml Q15M PRN IV DECREASED GLUCOSE; Start 03/23/19 at 18:00 Dextrose (D50w Syringe) 50 ml Q15M PRN IV DECREASED GLUCOSE; Start 03/23/19 at 18:00 Glucagon (Glucagen) 1 mg Q15M PRN IM DECREASED GLUCOSE; Start 03/23/19 at 18:00 Glucose (Glutose) 15 gm Q15M PRN BUCCAL DECREASED GLUCOSE; Start 03/23/19 at 18:00 Hydralazine HCl (Apresoline) 10 mg Q4H PRN IV FOR SBP>170; Start 03/26/19 at 03:30 Albuterol/ Ipratropium (Duoneb) 3 ml Q2H RESP THERAPY PRN HHN sob; Start 03/26/19 at 12:30 Fluconazole (Diflucan) 100 mg DAILY PO Last administered on 04/15/19 08:40; Admin Dose 100 MG; Start 04/02/19 at 15:30 Acyclovir (Zovirax) 400 mg DAILY PO Last administered on 04/15/19 08:41; Admin Dose 400 MG; Start 04/03/19 at 09:00 Levofloxacin (Levaquin) 500 mg DAILY@06 PO Last administered on 04/15/19 05:20; Admin Dose 500 MG; Start 04/03/19 at 06:00 Al Hydrox/Mg Hydrox/Simethicone (Mag-Al Plus) 30 ml Q6H PRN PO GASTROINTESTINAL UPSET Last administered on 04/14/19 22:43; Admin Dose 30 ML; Start 04/02/19 at 18:30 Carvedilol (Coreg) 12.5 mg BID PO Last administered on 04/15/19 20:54; Admin Dose 12.5 MG; Start 04/02/19 at 21:00 Dexamethasone (Maxidex 0.1% Oph) 2 drop BID BOTH EYES Last administered on 04/15/19 20:54; Admin Dose 2 DROP; Start 04/03/19 at 21:00 Lisinopril (Zestril) 20 mg BID PO Last administered on 04/15/19 20:52; Admin Dose 20 MG; Start 04/05/19 at 21:00 Vancomycin HCl (Vanco Iv Per Pharmacy) VANCOMYCIN PER PHARMACY PER PROTOCOL XX ; Start 04/10/19 at 16:00 Meropenem/Sodium Chloride 50 ml @ 100 mls/hr Q8 IVPB Last administered on 04/15/19 22:43; Admin Dose 100 MLS/HR; Start 04/10/19 at 17:00 Famotidine (Pepcid) 20 mg DAILY PO Last administered on 04/15/19 08:41; Admin Dose 20 MG; Start 04/11/19 at 09:00 Magnesium Oxide (Mag-Ox 400) 400 mg BID PO Last administered on 04/15/19 20:51; Admin Dose 400 MG; Start 04/10/19 at 21:00 Loperamide HCl (Imodium Cap) 2 mg Q8H PRN PO DIARRHEA Last administered on 04/15/19 08:40; Admin Dose 2 MG; Start 04/13/19 at 09:00 Vancomycin HCl 1.25 gm/Sodium Chloride 250 ml @ 83.333 mls/ hr Q8H IVPB Last administered on 04/15/19at 20:54; Admin Dose 83.333 MLS/HR; Start 04/13/19 at 17:00; Stop 04/16/19 at 05:59 Furosemide (Lasix) 20 mg DAILY PO ; Start 04/19/19 at 09:00 Insulin Aspart (Novolog Insulin Pen) 6 unit WITH MEALS SC Last administered on 04/15/19at 17:52; Admin Dose 6 UNIT; Start 04/14/19 at 07:50 Insulin Glargine (Lantus) 18 units DAILY@2000 SC Last administered on 04/15/19at 21:02; Admin Dose 18 UNITS; Start 04/13/19 at 20:00 Saccharomyces Boulardii (Florastor) 500 mg BID PO Last administered on 04/15/19at 22:42; Admin Dose 500 MG; Start 04/15/19 at 11:00 Vancomycin HCl 1.25 gm/Sodium Chloride 250 ml @ 83.333 mls/ hr Q8H IVPB ; Start 04/16/19 at 06:00 KATIE PACE NP Apr 16, 2019 05:48
[2019-04-16] MEDS: LEVOFLOXACIN 500 MG TAB PO SCH (06:12)
[2019-04-16] MEDS: MEROPENEM 500MG/50 ML (PMX) 50 ML IVPB SCH ×3 (06:29→21:27)
[2019-04-16 08:23] VITALS: BP 137/76; PULSE 80; RESP 18
[2019-04-16] MEDS: INSULIN ASPART [NOVOLOG] 3 ML PEN SC SCH ×7 (08:54→21:31)
[2019-04-16] MEDS: FAMOTIDINE 20 MG TAB PO SCH (08:58)
[2019-04-16] MEDS: FLUCONAZOLE 100 MG TAB PO SCH (08:59)
[2019-04-16] MEDS: SACCHAROMYCES BOULARDII 250 MG CAP PO SCH ×2 (08:59→22:28)
[2019-04-16] MEDS: ACYCLOVIR 400 MG TAB PO SCH (08:59)
[2019-04-16] MEDS: DEXAMETHASONE 0.1% 5 ML OPH BOTH EYES SCH ×2 (08:59→21:27)
[2019-04-16] MEDS: MAGNESIUM OXIDE 400 MG TAB PO SCH ×2 (08:59→21:27)
[2019-04-16] MEDS: LISINOPRIL 20 MG TAB PO SCH ×2 (09:00→21:28)
[2019-04-16] MEDS ORDERED: POTASSIUM CHLORIDE (SR) 10 MEQ TAB PO ONE (09:00)
--- NOTE | 2019-04-16 13:39 | CONS ---
Assessment/Plan Assessment/Plan Hospital Course (Demo Recall) No acute changes overnight patient is awake denies pain no nausea vomiting no diarrhea, T-max 100.6 WBC 0.4 platelets 40 BUN 7 creatinine 0.43 Stool for C. difficile negative Indwelling's: Right IJ Port-A-Cath Blood cultures and urine culture negative Antimicrobials: Vanco, Merrem, fluconazole, acyclovir Physical examination: Well-developed middle-aged man who is alert in no distress head atraumatic normocephalic sclera nonicteric vehicle mucosa pink neck is supple chest rise symmetrical breath sounds clear Heart S1-S2 abdomen soft bowel sounds present extremities without cyanosis edema Assessment: 1. Neutropenia with fevers 2. AML, newly diagnosed 3. Diabetes 4. Hypertension 5. Pancytopenia Plan: Remains stable, continue prophylactic antimicrobials, oncology rec ommendations, blood products as needed Consultation Date/Type/Reason Admit Date/Time Mar 23, 2019 at 16:10 Initial Consult Date 03/24/19 Type of Consult id Requesting Provider: KATIE PACE NP Date/Time of Note DATE: 04/16/19 TIME: 13:38 Exam/Review of Systems Exam Vitals Vital Signs Date Temp Pulse Resp B/P (MAP) Pulse Ox O2 O2 Flow FiO2 Time Delivery Rate 04/16/19 98.9 80 18 137/76 97 Room Air 08:23 (96) 04/16/19 21 02:50 Intake and Output 04/15/19 04/15/19 04/16/19 1515:00 23:00 07:00 IntakeIntake Total 1100 ml 1839 ml 300 ml BalanceBalance 1100 ml 1839 ml 300 ml Results Result Diagram: 04/16/19 0427 04/16/19 0427 Results 24hrs Laboratory Tests Test 04/15/19 17:48 04/15/19 21:00 04/16/19 04:27 04/16/19 08:44 Bedside Glucose 114 139 88 White Blood Count 0.4 #L Red Blood Count 2.38 L Hemoglobin 7.4 L Hematocrit 20.3 L Mean Corpuscular 85.3 Volume Mean Corpuscular 31.1 Hemoglobin Mean Corpuscular 36.5 Hemoglobin Concent Red Cell Distribution 12.3 Width Platelet Count 40 #L Mean Platelet Volume 9.9 Immature Granulocytes 0.000 L % Neutrophils % Band Neutrophils % 1 (Manual) Lymphocytes % Lymphocytes % 92 H (Manual) Reactive Lymphocytes 1 H % (Manual) Monocytes % Monocytes % (Manual) 5 Eosinophils % Basophils % Blast Cells % 1.2 H (Manual) Nucleated Red Blood 0.0 Cells % Immature Granulocytes 0.000 # Neutrophils # Band Neutrophils # 0.0 Lymphocytes (Manual) 0.3 L Lymphocytes # Reactive Lymphocytes 0.0 # Monocytes # Monocytes # (Manual) 0.0 L Eosinophils # Basophils # Nucleated Red Blood Cells # Platelet Estimate SIG DECREASED Giant Platelets 1 H Polychromasia 3+ Poikilocytosis 1+ Anisocytosis 1+ Sodium Level 136 Potassium Level 3.3 L Chloride Level 103 Carbon Dioxide Level 25 Anion Gap 8 Blood Urea Nitrogen 7 Creatinine 0.43 L Est Glomerular > 60 Filtrat Rate mL/min Glucose Level 69 #L Uric Acid 1.7 L Calcium Level 7.9 L Phosphorus Level 3.2 Magnesium Level 2.0 Total Bilirubin 0.7 Direct Bilirubin 0.00 Indirect Bilirubin 0.7 Aspartate Amino 14 L Transf (AST/SGOT) Alanine 38 Aminotransferase (ALT /SGPT) Alkaline Phosphatase 73 Lactate Dehydrogenase 287 L Total Protein 6.0 L Albumin 2.9 L Globulin 3.10 Albumin/Globulin 0.93 Ratio Test 04/16/19 12:38 Bedside Glucose 234 H Medications Medication Current Medications Insulin Aspart (Novolog Insulin Pen) NOVOLOG *MILD* ALGORI... WITH MEALS BEDTIME SC Last administered on 04/16/19 12:43; Admin Dose 3 UNIT; Start 03/23/19 at 18:00 IV Flush (NS 3 ml) 3 ml PER PROTOCOL IV Last administered on 04/08/19 05:29; Admin Dose 3 ML; Start 03/23/19 at 18:00 Ondansetron HCl (Zofran Inj) 4 mg Q6H PRN IV NAUSEA/VOMITING Last administered on 04/09/19 17:54; Admin Dose 4 MG; Start 03/23/19 at 18:00 Acetaminophen (Tylenol Tab) 650 mg Q6H PRN PO .PAIN 1-3 OR TEMP Last administered on 04/15/19 10:57; Admin Dose 650 MG; Start 03/23/19 at 18:00 Acetaminophen/ Hydrocodone Bitart ([place] (5/325)) 1 tab Q6H PRN PO .MOD PAIN 4- 6 Last administered on 7/3/19at 03:07; Admin Dose 1 TAB; Start 03/23/19 at 18:00 Miscellaneous Information 1 ea NOTE XX ; Start 03/23/19 at 18:00 Glucose (Glutose) 15 gm Q15M PRN PO DECREASED GLUCOSE; Start 03/23/19 at 18:00 Glucose (Glutose) 22.5 gm Q15M PRN PO DECREASED GLUCOSE; Start 03/23/19 at 18: 00 Dextrose (D50w Syringe) 25 ml Q15M PRN IV DECREASED GLUCOSE; Start 03/23/19 at 18:00 Dextrose (D50w Syringe) 50 ml Q15M PRN IV DECREASED GLUCOSE; Start 03/23/19 at 18:00 Glucagon (Glucagen) 1 mg Q15M PRN IM DECREASED GLUCOSE; Start 03/23/19 at 18:00 Glucose (Glutose) 15 gm Q15M PRN BUCCAL DECREASED GLUCOSE; Start 03/23/19 at 18:00 Hydralazine HCl (Apresoline) 10 mg Q4H PRN IV FOR SBP>170; Start 03/26/19 at 03:30 Albuterol/ Ipratropium (Duoneb) 3 ml Q2H RESP THERAPY PRN HHN sob; Start at 12:30 Fluconazole (Diflucan) 100 mg DAILY PO Last administered on 04/16/19 08:59; Admin Dose 100 MG; Start 04/02/19 at 15:30 Acyclovir (Zovirax) 400 mg DAILY PO Last administered on 04/16/19at 08:59; Admin Dose 400 MG; Start 04/03/19 at 09:00 Al Hydrox/Mg Hydrox/Simethicone (Mag-Al Plus) 30 ml Q6H PRN PO GASTROINTESTINAL UPSET Last administered on 04/14/19at 22:43; Admin Dose 30 ML; Start 04/02/19 at 18:30 Carvedilol (Coreg) 12.5 mg BID PO Last administered on 04/16/19at 09:00; Admin Dose 12.5 MG; Start 04/02/19 at 21:00 Dexamethasone (Maxidex 0.1% Oph) 2 drop BID BOTH EYES Last administered on 04/16/19 08:59; Admin Dose 2 DROP; Start 04/03/19 at 21:00 Lisinopril (Zestril) 20 mg BID PO Last administered on 04/16/19 09:00; Admin Dose 20 MG; Start 04/05/19 at 21:00 Vancomycin HCl (Vanco Iv Per Pharmacy) VANCOMYCIN PER PHARMACY PER PROTOCOL XX ; Start 04/10/19 at 16:00 Meropenem/Sodium Chloride 50 ml @ 100 mls/hr Q8 IVPB Last administered on 04/16/19 06:29; Admin Dose 100 MLS/HR; Start 04/10/19 at 17:00 Famotidine (Pepcid) 20 mg DAILY PO Last administered on 04/16/19 08:58; Admin Dose 20 MG; Start 04/11/19 at 09:00 Magnesium Oxide (Mag-Ox 400) 400 mg BID PO Last administered on 04/16/19 08:59; Admin Dose 400 MG; Start 04/10/19 at 21:00 Loperamide HCl (Imodium Cap) 2 mg Q8H PRN PO DIARRHEA Last administered on 04/15/19 08:40; Admin Dose 2 MG; Start 04/13/19 at 09:00 Furosemide (Lasix) 20 mg DAILY PO ; Start 04/19/19 at 09:00 Insulin Aspart (Novolog Insulin Pen) 6 unit WITH MEALS SC Last administered on 04/16/19 12:43; Admin Dose 6 UNIT; Start 04/14/19 at 07:50 Insulin Glargine (Lantus) 18 units DAILY@2000 SC Last administered on 04/15/19 21:02; Admin Dose 18 UNITS; Start 04/13/19 at 20:00 Saccharomyces Boulardii (Florastor) 500 mg BID PO Last administered on 04/16/19 08:59; Admin Dose 500 MG; Start 04/15/19 at 11:00 Vancomycin HCl 1.25 gm/Sodium Chloride 250 ml @ 83.333 mls/ hr Q8H IVPB Last administered on 04/16/19 06:28; Admin Dose 83.333 MLS/HR; Start 04/16/19 at 06:00 JEANNIE NICHOLSON NP Apr 16, 2019 13:39
[2019-04-16] MEDS ORDERED: ALTEPLASE (CATHFLO) 2 MG INJ CATHETER ONE (15:00)
[2019-04-16] MEDS ORDERED: ALTEPLASE (CATHFLO) 2 MG INJ CATHETER PRN (15:00)
[2019-04-16 15:42] VITALS: BP 129/79; PULSE 84; RESP 18
--- NOTE | 2019-04-16 16:48 | PN ---
Date/Time of Note Date/Time of Note DATE: 04/16/19 TIME: 16:44 Assessment/Plan VTE Prophylaxis Risk score (from Ns)>0 risk: 5 SCD applied (from Nsg): Yes Pharmacological prophylaxis: other (thrombocytopenia) Lines/Catheters IV Catheter Type (from Nrs): BARBER Urinary Cath still in place: No Assessment/Plan Assessment/Plan Day 18 of the induction chemotherapy. He is doing well given the intensity of treatment. He will continue to need antibiotic coverage and transfusion support. Continue current plans. I would anticipate about 7 to 10 days for marrow recovery to show significant improvement. Result Diagram: 04/16/197 04/16/19 0427 Results 24hrs Laboratory Tests Test 04/15/19 17:48 04/15/19 21:00 04/16/19 04:27 04/16/19 08:44 Bedside Glucose 114 139 88 White Blood Count 0.4 #L Red Blood Count 2.38 L Hemoglobin 7.4 L Hematocrit 20.3 L Mean Corpuscular 85.3 Volume Mean Corpuscular 31.1 Hemoglobin Mean Corpuscular 36.5 Hemoglobin Concent Red Cell Distribution 12.3 Width Platelet Count 40 #L Mean Platelet Volume 9.9 Immature Granulocytes 0.000 L % Neutrophils % Band Neutrophils % 1 (Manual) Lymphocytes % Lymphocytes % 92 H (Manual) Reactive Lymphocytes 1 H % (Manual) Monocytes % Monocytes % (Manual) 5 Eosinophils % Basophils % Blast Cells % 1.2 H (Manual) Nucleated Red Blood 0.0 Cells % Immature Granulocytes 0.000 # Neutrophils # Band Neutrophils # 0.0 Lymphocytes (Manual) 0.3 L Lymphocytes # Reactive Lymphocytes 0.0 # Monocytes # Monocytes # (Manual) 0.0 L Eosinophils # Basophils # Nucleated Red Blood Cells # Platelet Estimate SIG DECREASED Giant Platelets 1 H Polychromasia 3+ Poikilocytosis 1+ Anisocytosis 1+ Sodium Level 136 Potassium Level 3.3 L Chloride Level 103 Carbon Dioxide Level 25 Anion Gap 8 Blood Urea Nitrogen 7 Creatinine 0.43 L Est Glomerular > 60 Filtrat Rate mL/min Glucose Level 69 #L Uric Acid 1.7 L Calcium Level 7.9 L Phosphorus Level 3.2 Magnesium Level 2.0 Total Bilirubin 0.7 Direct Bilirubin 0.00 Indirect Bilirubin 0.7 Aspartate Amino 14 L Transf (AST/SGOT) Alanine 38 Aminotransferase (ALT /SGPT) Alkaline Phosphatase 73 Lactate Dehydrogenase 287 L Total Protein 6.0 L Albumin 2.9 L Globulin 3.10 Albumin/Globulin 0.93 Ratio Test 04/16/19 12:38 Bedside Glucose 234 H Subjective 24 Hr Interval Summary Free Text/Dictation Pt feels better after transfusion support. He is out of bed sitting in a chair and said that he walked earlier in the day. Exam/Review of Systems Exam Vitals Vital Signs Date Temp Pulse Resp B/P (MAP) Pulse Ox O2 O2 Flow FiO2 Time Delivery Rate 04/16/19 99.7 84 18 129/79 97 Room Air 15:42 (96) 04/16/19 21 02:50 Intake and Output 04/15/19 04/15/19 04/16/19 1414:59 22:59 06:59 IntakeIntake Total 1100 ml 1839 ml 300 ml BalanceBalance 1100 ml 1839 ml 300 ml Constitutional: alert, oriented Head: normocephalic Eyes: other (conjunctival pallor) ENMT: nl external ears & nose Neck: supple Respiratory: clear to auscultation Cardiovascular: regular rate and rhythm Gastrointestinal: soft, non-tender Extremities: other (no calf tenderness or Antonino's sign) Lymph: nl lymph nodes Results Results 24hrs Laboratory Tests Test 04/15/19 17:48 04/15/19 21:00 04/16/19 04:27 04/16/19 08:44 Bedside Glucose 114 139 88 White Blood Count 0.4 #L Red Blood Count 2.38 L Hemoglobin 7.4 L Hematocrit 20.3 L Mean Corpuscular 85.3 Volume Mean Corpuscular 31.1 Hemoglobin Mean Corpuscular 36.5 Hemoglobin Concent Red Cell Distribution 12.3 Width Platelet Count 40 #L Mean Platelet Volume 9.9 Immature Granulocytes 0.000 L % Neutrophils % Band Neutrophils % 1 (Manual) Lymphocytes % Lymphocytes % 92 H (Manual) Reactive Lymphocytes 1 H % (Manual) Monocytes % Monocytes % (Manual) 5 Eosinophils % Basophils % Blast Cells % 1.2 H (Manual) Nucleated Red Blood 0.0 Cells % Immature Granulocytes 0.000 # Neutrophils # Band Neutrophils # 0.0 Lymphocytes (Manual) 0.3 L Lymphocytes # Reactive Lymphocytes 0.0 # Monocytes # Monocytes # (Manual) 0.0 L Eosinophils # Basophils # Nucleated Red Blood Cells # Platelet Estimate SIG DECREASED Giant Platelets 1 H Polychromasia 3+ Poikilocytosis 1+ Anisocytosis 1+ Sodium Level 136 Potassium Level 3.3 L Chloride Level 103 Carbon Dioxide Level 25 Anion Gap 8 Blood Urea Nitrogen 7 Creatinine 0.43 L Est Glomerular > 60 Filtrat Rate mL/min Glucose Level 69 #L Uric Acid 1.7 L Calcium Level 7.9 L Phosphorus Level 3.2 Magnesium Level 2.0 Total Bilirubin 0.7 Direct Bilirubin 0.00 Indirect Bilirubin 0.7 Aspartate Amino 14 L Transf (AST/SGOT) Alanine 38 Aminotransferase (ALT /SGPT) Alkaline Phosphatase 73 Lactate Dehydrogenase 287 L Total Protein 6.0 L Albumin 2.9 L Globulin 3.10 Albumin/Globulin 0.93 Ratio Test 04/16/19 12:38 Bedside Glucose 234 H Medications Medication Current Medications Insulin Aspart (Novolog Insulin Pen) NOVOLOG *MILD* ALGORI... WITH MEALS BEDTIME SC Last administered on 04/16/19 12:43; Admin Dose 3 UNIT; Start at 18:00 IV Flush (NS 3 ml) 3 ml PER PROTOCOL IV Last administered on 04/08/19 05:29; Admin Dose 3 ML; Start 03/23/19 at 18:00 Ondansetron HCl (Zofran Inj) 4 mg Q6H PRN IV NAUSEA/VOMITING Last administered on 04/09/19 17:54; Admin Dose 4 MG; Start 03/23/19 at 18:00 Acetaminophen (Tylenol Tab) 650 mg Q6H PRN PO .PAIN 1-3 OR TEMP Last administered on 04/15/19 10:57; Admin Dose 650 MG; Start 03/23/19 at 18:00 Acetaminophen/ Hydrocodone Bitart ([place] (5/325)) 1 tab Q6H PRN PO .MOD PAIN 4- 6 Last administered on 04/10/19 03:07; Admin Dose 1 TAB; Start 03/23/19 at 18:00 Miscellaneous Information 1 ea NOTE XX ; Start 03/23/19 at 18:00 Glucose (Glutose) 15 gm Q15M PRN PO DECREASED GLUCOSE; Start 03/23/19 at 18:00 Glucose (Glutose) 22.5 gm Q15M PRN PO DECREASED GLUCOSE; Start 03/23/19 at 18:00 Dextrose (D50w Syringe) 25 ml Q15M PRN IV DECREASED GLUCOSE; Start 03/23/19 at 18:00 Dextrose (D50w Syringe) 50 ml Q15M PRN IV DECREASED GLUCOSE; Start 03/23/19 at 18:00 Glucagon (Glucagen) 1 mg Q15M PRN IM DECREASED GLUCOSE; Start 03/23/19 at 18:00 Glucose (Glutose) 15 gm Q15M PRN BUCCAL DECREASED GLUCOSE; Start 03/23/19 at 18:00 Hydralazine HCl (Apresoline) 10 mg Q4H PRN IV FOR SBP>170; Start 03/26/19 at 03:30 Albuterol/ Ipratropium (Duoneb) 3 ml Q2H RESP THERAPY PRN HHN sob; Start 03/26/19 at 12:30 Fluconazole (Diflucan) 100 mg DAILY PO Last administered on 04/16/19 08:59; Ad min Dose 100 MG; Start 04/02/19 at 15:30 Acyclovir (Zovirax) 400 mg DAILY PO Last administered on 04/16/19at 08:59; Admin Dose 400 MG; Start 04/03/19 at 09:00 Al Hydrox/Mg Hydrox/Simethicone (Mag-Al Plus) 30 ml Q6H PRN PO GASTROINTESTINAL UPSET Last administered on 04/14/19at 22:43; Admin Dose 30 ML; Start 04/02/19 at 18:30 Carvedilol (Coreg) 12.5 mg BID PO Last administered on 04/16/19 09:00; Admin Dose 12.5 MG; Start 04/02/19 at 21:00 Dexamethasone (Maxidex 0.1% Oph) 2 drop BID BOTH EYES Last administered on 04/16/19 08:59; Admin Dose 2 DROP; Start 04/03/19 at 21:00 Lisinopril (Zestril) 20 mg BID PO Last administered on 04/16/19 09:00; Admin Dose 20 MG; Start 04/05/19 at 21:00 Vancomycin HCl (Vanco Iv Per Pharmacy) VANCOMYCIN PER PHARMACY PER PROTOCOL XX ; Start 04/10/19 at 16:00 Meropenem/Sodium Chloride 50 ml @ 100 mls/hr Q8 IVPB Last administered on 04/16/19at 16:02; Admin Dose 100 MLS/HR; Start 04/10/19 at 17:00 Famotidine (Pepcid) 20 mg DAILY PO Last administered on 04/16/19 08:58; Admin Dose 20 MG; Start 04/11/19 at 09:00 Magnesium Oxide (Mag-Ox 400) 400 mg BID PO Last administered on 04/16/19 08:59; Admin Dose 400 MG; Start 04/10/19 at 21:00 Loperamide HCl (Imodium Cap) 2 mg Q8H PRN PO DIARRHEA Last administered on 04/15/19 08:40; Admin Dose 2 MG; Start 04/13/19 at 09:00 Furosemide (Lasix) 20 mg DAILY PO ; Start 04/19/19 at 09:00 Insulin Aspart (Novolog Insulin Pen) 6 unit WITH MEALS SC Last administered on 04/16/19 12:43; Admin Dose 6 UNIT; Start 04/14/19 at 07:50 Insulin Glargine (Lantus) 18 units DAILY@2000 SC Last administered on 04/15/19 21:02; Admin Dose 18 UNITS; Start 04/13/19 at 20:00 Saccharomyces Boulardii (Florastor) 500 mg BID PO Last administered on 04/16/19 08:59; Admin Dose 500 MG; Start 04/15/19 at 11:00 Vancomycin HCl 1.25 gm/Sodium Chloride 250 ml @ 83.333 mls/ hr Q8H IVPB Last administered on 04/16/19 14:01; Admin Dose 83.333 MLS/HR; Start 04/16/19 at 06:00 Alteplase, Recombinant (Cathflo (Activase)) 2 mg MAY REPEAT X1 PRN CATHETER IF C ATHETER REMAINS OCCULUDED; Start 04/16/19 at 15:00 BETTE MALDONADO MD Apr 16, 2019 16:48
[2019-04-16 20:57] VITALS: BP 150/82; PULSE 95; RESP 19
[2019-04-16] MEDS: INSULIN GLARGINE [LANTus] (100 UNITS/ML) SYG SC SCH (21:32)
[2019-04-17 02:00] VITALS: BP 142/82; PULSE 92; RESP 18
[2019-04-17] MEDS: MEROPENEM 500MG/50 ML (PMX) 50 ML IVPB SCH ×2 (05:32→14:12)
--- NOTE | 2019-04-17 05:49 | PN ---
Date/Time of Note Date/Time of Note DATE: 04/17/19 TIME: 05:49 Assessment/Plan VTE Prophylaxis Risk score (from Ns)>0 risk: 5 SCD applied (from Ns): Yes Pharmacological prophylaxis: NA/contraindicated Pharm contraindication: thrombocytopenia Lines/Catheters [facility] [place] [facility] line still needed: Yes Urinary Cath still in place: No Assessment/Plan Hospital Course SUBJECTIVE: Denies any pain or dyspnea. Continues to have some diarrhea. OBJECTIVE: Physical Exam General: Adequately build 54 year-old male lying in bed in no apparent distress. HEENT: Normocephalic, atraumatic. Eyes: Anicteric sclerae, conjunctivae clear. ENT: Nasal septum midline, oral mucosa moist. Neck supple, no JVD noticed. Respiratory: Bilaterally clear breath sounds. No use of accessory muscles of respiration. No adventitious breath sounds. Cardiovascular: S1, S2 heard. Regular rate and rhythm. Abdomen: Soft, nontender, and nondistended. Bowel sounds positive in all 4 quadrants. Genitourinary: Deferred. Extremities: No cyanosis, no clubbing, no edema. Peripheral pulses palpable. Neurologic: Cranial nerves II through XII grossly intact. The patient is awake, alert, and oriented. Skin: Normal skin turgor. No skin rashes. Labs & Vitals per chart ASSESSMENT & PLAN 54-year-old male with comorbidities including hypertension and diabetes mellitus who presented to the emergency room on 03/22/2019 with febrile illness and was discharged home on oral antibiotics, who was called back on 03/23/2019 as per the instruction of the pathologist for increased blast cells on CBC drawn on 03/22/20 19. 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 2. Neutropenic fevers. On antimicrobials as per ID. Reyes cultures remain negative. 3. Diabetes mellitus type 2. Hemoglobin A1c 9.6. Continue the patient on sliding scale insulin along with pre-meal insulin and basal insulin. 4. Hypertension. Continue antihypertensives. 5. Cardiomyopathy. EF of 35-40%. Continue BBs and ACEIs. Cardiology following. 6. Acute CHF exacerbation, systolic dysfunction. Continue diuretic therapy. Switched to oral diuretic therapy. 7. Fluids, electrolytes, and nutrition. Carbohydrate controlled, neutropenic diet. 8. DVT prophylaxis. Bilateral SCDs. 9. Plan. Continue to monitor for any secondary infection. Discharge the patient home once his pancytopenia is improved. Transfusion of blood products will be deferred to oncology. The patient was seen in collaboration with Dr. Avilez. Result Diagram: 04/17/19 0445 04/17/19 0445 Results 24hrs Laboratory Tests Test 04/16/19 08:44 04/16/19 12:38 04/16/19 17:38 04/16/19 21:25 Bedside Glucose 88 234 H 143 224 H Test 04/17/19 02:08 04/17/19 04:45 Bedside Glucose 150 White Blood Count 0.4 L Red Blood Count 2.27 L Hemoglobin 6.9 *L Hematocrit 19.7 L Mean Corpuscular 86.8 Volume Mean Corpuscular 30.4 Hemoglobin Mean Corpuscular 35.0 Hemoglobin Concent Red Cell Distribution 12.4 Width Platelet Count 31 #L Mean Platelet Volume 9.6 Immature Granulocytes 0.000 L % Neutrophils % Lymphocytes % Monocytes % Eosinophils % Basophils % Nucleated Red Blood 0.0 Cells % Immature Granulocytes 0.000 # Neutrophils # Lymphocytes # Monocytes # Eosinophils # Basophils # Nucleated Red Blood Cells # Sodium Level 135 Potassium Level 3.4 L Chloride Level 104 Carbon Dioxide Level 24 Anion Gap 7 Blood Urea Nitrogen 7 Creatinine 0.51 L Est Glomerular Filtrat > 60 Rate mL/min Glucose Level 134 # Uric Acid 2.0 L Calcium Level 7.8 L Phosphorus Level 3.0 Magnesium Level 2.0 Total Bilirubin 0.4 Direct Bilirubin 0.00 Indirect Bilirubin 0.4 Aspartate Amino 22 # Transf (AST/SGOT) Alanine 45 Aminotransferase (ALT/ SGPT) Alkaline Phosphatase 75 Lactate Dehydrogenase 310 L Total Protein 6.1 Albumin 2.8 L Globulin 3.30 H Albumin/Globulin Ratio 0.84 Exam/Review of Systems Exam Vitals Vital Signs Date Temp Pulse Resp B/P (MAP) Pulse Ox O2 O2 Flow FiO2 Time Delivery Rate 04/17/19 98.7 92 18 142/82 98 02:00 (102) 04/16/19 Room Air 15:42 04/16/19 21 02:50 Intake and Output 04/16/19 04/16/19 04/17/19 1515:00 23:00 07:00 IntakeIntake Total 720 ml 1150 ml 300 ml OutputOutput Total 1 ml BalanceBalance 719 ml 1150 ml 300 ml Results Results 24hrs Laboratory Tests Test 04/16/19 08:44 04/16/19 12:38 04/16/19 17:38 04/16/19 21:25 Bedside Glucose 88 234 H 143 224 H Test 04/17/19 02:08 04/17/19 04:45 Bedside Glucose 150 White Blood Count 0.4 L Red Blood Count 2.27 L Hemoglobin 6.9 *L Hematocrit 19.7 L Mean Corpuscular 86.8 Volume Mean Corpuscular 30.4 Hemoglobin Mean Corpuscular 35.0 Hemoglobin Concent Red Cell Distribution 12.4 Width Platelet Count 31 #L Mean Platelet Volume 9.6 Immature Granulocytes 0.000 L % Neutrophils % Lymphocytes % Monocytes % Eosinophils % Basophils % Nucleated Red Blood 0.0 Cells % Immature Granulocytes 0.000 # Neutrophils # Lymphocytes # Monocytes # Eosinophils # Basophils # Nucleated Red Blood Cells # Sodium Level 135 Potassium Level 3.4 L Chloride Level 104 Carbon Dioxide Level 24 Anion Gap 7 Blood Urea Nitrogen 7 Creatinine 0.51 L Est Glomerular Filtrat > 60 Rate mL/min Glucose Level 134 # Uric Acid 2.0 L Calcium Level 7.8 L Phosphorus Level 3.0 Magnesium Level 2.0 Total Bilirubin 0.4 Direct Bilirubin 0.00 Indirect Bilirubin 0.4 Aspartate Amino 22 # Transf (AST/SGOT) Alanine 45 Aminotransferase (ALT/ SGPT) Alkaline Phosphatase 75 Lactate Dehydrogenase 310 L Total Protein 6.1 Albumin 2.8 L Globulin 3.30 H Albumin/Globulin Ratio 0.84 Medications Medication Current Medications Insulin Aspart (Novolog Insulin Pen) NOVOLOG *MILD* ALGORI... WITH MEALS BEDTIME SC Last administered on 04/16/19 21:31; Admin Dose 2 UNIT; Start 03/23/19 at 18:00 IV Flush (NS 3 ml) 3 ml PER PROTOCOL IV Last administered on 04/08/19 05:29; Admin Dose 3 ML; Start 03/23/19 at 18:00 Ondansetron HCl (Zofran Inj) 4 mg Q6H PRN IV NAUSEA/VOMITING Last administered on 04/09/19 17:54; Admin Dose 4 MG; Start 03/23/19 at 18:00 Acetaminophen (Tylenol Tab) 650 mg Q6H PRN PO .PAIN 1-3 OR TEMP Last administered on 04/15/19 10:57; Admin Dose 650 MG; Start 03/23/19 at 18:00 Acetaminophen/ Hydrocodone Bitart ([place] (5/325)) 1 tab Q6H PRN PO .MOD PAIN 4- 6 Last administered on 04/10/19 03:07; Admin Dose 1 TAB; Start 03/23/19 at 18:00 Miscellaneous Information 1 ea NOTE XX ; Start 03/23/19 at 18:00 Glucose (Glutose) 15 gm Q15M PRN PO DECREASED GLUCOSE; Start 03/23/19 at 18:00 Glucose (Glutose) 22.5 gm Q15M PRN PO DECREASED GLUCOSE; Start 03/23/19 at 18:00 Dextrose (D50w Syringe) 25 ml Q15M PRN IV DECREASED GLUCOSE; Start 03/23/19 at 18:00 Dextrose (D50w Syringe) 50 ml Q15M PRN IV DECREASED GLUCOSE; Start 03/23/19 at 18:00 Glucagon (Glucagen) 1 mg Q15M PRN IM DECREASED GLUCOSE; Start 03/23/19 at 18:00 Glucose (Glutose) 15 gm Q15M PRN BUCCAL DECREASED GLUCOSE; Start 03/23/19 at 18:00 Hydralazine HCl (Apresoline) 10 mg Q4H PRN IV FOR SBP>170; Start 03/26/19 at 03:30 Albuterol/ Ipratropium (Duoneb) 3 ml Q2H RESP THERAPY PRN HHN sob; Start 03/26/19 at 12:30 Fluconazole (Diflucan) 100 mg DAILY PO Last administered on 04/16/19 08:59; Admin Dose 100 MG; Start 04/02/19 at 15:30 Acyclovir (Zovirax) 400 mg DAILY PO Last administered on 04/16/19at 08:59; Admin Dose 400 MG; Start 04/03/19 at 09:00 Al Hydrox/Mg Hydrox/Simethicone (Mag-Al Plus) 30 ml Q6H PRN PO GASTROINTESTINAL UPSET Last administered on 04/14/19at 22:43; Admin Dose 30 ML; Start 04/02/19 at 18:30 Carvedilol (Coreg) 12.5 mg BID PO Last administered on 04/16/19 21:28; Admin Dose 12.5 MG; Start 04/02/19 at 21:00 Dexamethasone (Maxidex 0.1% Oph) 2 drop BID BOTH EYES Last administered on 04/16/19 21:27; Admin Dose 2 DROP; Start 04/03/19 at 21:00 Lisinopril (Zestril) 20 mg BID PO Last administered on 04/16/19 21:28; Admin Dose 20 MG; Start 04/05/19 at 21:00 Vancomycin HCl (Vanco Iv Per Pharmacy) VANCOMYCIN PER PHARMACY PER PROTOCOL XX ; Start 04/10/19 at 16:00 Meropenem/Sodium Chloride 50 ml @ 100 mls/hr Q8 IVPB Last administered on 04/17/19 05:32; Admin Dose 100 MLS/HR; Start 04/10/19 at 17:00 Famotidine (Pepcid) 20 mg DAILY PO Last administered on 04/16/19 08:58; Admin Dose 20 MG; Start 04/11/19 at 09:00 Magnesium Oxide (Mag-Ox 400) 400 mg BID PO Last administered on 04/16/19 21:27; Admin Dose 400 MG; Start 04/10/19 at 21:00 Loperamide HCl (Imodium Cap) 2 mg Q8H PRN PO DIARRHEA Last administered on 04/15/19 08:40; Admin Dose 2 MG; Start 04/13/19 at 09:00 Furosemide (Lasix) 20 mg DAILY PO ; Start 04/19/19 at 09:00 Insulin Aspart (Novolog Insulin Pen) 6 unit WITH MEALS SC Last administered on 04/16/19 17:41; Admin Dose 6 UNIT; Start 04/14/19 at 07:50 Insulin Glargine (Lantus) 18 units DAILY@2000 SC Last administered on 04/16/19 21:32; Admin Dose 18 UNITS; Start 04/13/19 at 20:00 Saccharomyces Boulardii (Florastor) 500 mg BID PO Last administered on 04/16/19 22:28; Admin Dose 500 MG; Start 04/15/19 at 11:00 Vancomycin HCl 1.25 gm/Sodium Chloride 250 ml @ 83.333 mls/ hr Q8H IVPB Last administered on 04/16/19 22:28; Admin Dose 83.333 MLS/HR; Start 04/16/19 at 06:00 Alteplase, Recombinant (Cathflo (Activase)) 2 mg MAY REPEAT X1 PRN CATHETER IF CATHETER REMAINS OCCULUDED; Start 04/16/19 at 15:00 KATIE PACE NP Apr 17, 2019 05:49
[2019-04-17] MEDS: VANCOMYCIN HCL 1.25 GM in SOD CHLORIDE 0.9% 250 ML IVPB SCH ×2 (06:05→15:39)
[2019-04-17] MEDS: INSULIN ASPART [NOVOLOG] 3 ML PEN SC SCH ×7 (07:50→21:00)
[2019-04-17 08:23] VITALS: BP 138/79; PULSE 81; RESP 18
[2019-04-17] MEDS: MAGNESIUM OXIDE 400 MG TAB PO SCH ×2 (08:42→21:11)
[2019-04-17] MEDS: ACYCLOVIR 400 MG TAB PO SCH (08:42)
[2019-04-17] MEDS: SACCHAROMYCES BOULARDII 250 MG CAP PO SCH ×2 (08:42→21:10)
[2019-04-17] MEDS: FLUCONAZOLE 100 MG TAB PO SCH (08:42)
[2019-04-17] MEDS: FAMOTIDINE 20 MG TAB PO SCH (08:43)
[2019-04-17] MEDS: LISINOPRIL 20 MG TAB PO SCH ×2 (08:43→21:11)
[2019-04-17] MEDS: DEXAMETHASONE 0.1% 5 ML OPH BOTH EYES SCH ×2 (08:44→21:10)
--- NOTE | 2019-04-17 14:02 | CONS ---
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 Diabetes Hypertension Continue maintenance diuretics and titrate as needed Blood pressure trend overall stable, continue CHARLENE inhibitor as tolerated Continue beta-lissette as heart rate and blood pressure permits Consultation Date/Type/Reason Admit Date/Time Mar 23, 2019 at 16:10 Initial Consult Date 03/24/19 Type of Consult Cardiology Requesting Provider: KATIE PACE NP Date/Time of Note DATE: 04/17/19 TIME: 14:01 24 HR Interval Summary Free Text/Dictation No shortness of breath, palpitations, chest pain Exam/Review of Systems Vital Signs Vitals Vital Signs Date Temp Pulse Resp B/P (MAP) Pulse Ox O2 O2 Flow FiO2 Time Delivery Rate 04/17/19 98.6 08:42 04/17/19 81 18 138/79 99 Room Air 08:23 (98) 04/16/19 21 02:50 Intake and Output 04/16/19 04/16/19 04/17/19 1515:00 23:00 07:00 IntakeIntake Total 720 ml 1150 ml 350 ml OutputOutput Total 1 ml BalanceBalance 719 ml 1150 ml 350 ml Exam Constitutional: alert, oriented (No apparent distress) Head: normocephalic Respiratory: other (Coarse breath sounds bilaterally, no wheezing) Cardiovascular: regular rate and rhythm (S1-S2 heard) Gastrointestinal: soft, non-tender, bowel sounds Extremities: other (No edema) Labs Result Diagram: 04/17/19 0445 04/17/19 0445 Results 24hrs Laboratory Tests Test 04/16/19 17:38 04/16/19 21:25 04/17/19 02:08 04/17/19 04:45 Bedside Glucose 143 224 H 150 White Blood Count 0.4 L Red Blood Count 2.27 L Hemoglobin 6.9 *L Hematocrit 19.7 L Mean Corpuscular 86.8 Volume Mean Corpuscular 30.4 Hemoglobin Mean Corpuscular 35.0 Hemoglobin Concent Red Cell 12.4 Distribution Width Platelet Count 31 #L Mean Platelet 9.6 Volume Immature 0.000 L Granulocytes % Neutrophils % Lymphocytes % Lymphocytes % 90 H (Manual) Reactive 3 H Lymphocytes % (Manual) Monocytes % Monocytes % 2 (Manual) Eosinophils % Basophils % Blast Cells % 4.7 H (Manual) Nucleated Red 0.0 Blood Cells % Immature 0.000 Granulocytes # Neutrophils # Lymphocytes 0.3 L (Manual) Lymphocytes # Reactive 0.0 Lymphocytes # Monocytes # Monocytes # 0.0 L (Manual) Eosinophils # Basophils # Nucleated Red Blood Cells # Platelet Estimate SIG DECREASED Polychromasia 3+ Poikilocytosis 1+ Anisocytosis 3+ Microcytosis 2+ Macrocytosis 1+ Ovalocytes 1+ Sodium Level 135 Potassium Level 3.4 L Chloride Level 104 Carbon Dioxide 24 Level Anion Gap 7 Blood Urea 7 Nitrogen Creatinine 0.51 L Est Glomerular > 60 Filtrat Rate mL/min Glucose Level 134 # Uric Acid 2.0 L Calcium Level 7.8 L Phosphorus Level 3.0 Magnesium Level 2.0 Total Bilirubin 0.4 Direct Bilirubin 0.00 Indirect Bilirubin 0.4 Aspartate Amino 22 # Transf (AST/SGOT) Alanine 45 Aminotransferase ( ALT/SGPT) Alkaline 75 Phosphatase Lactate 310 L Dehydrogenase Total Protein 6.1 Albumin 2.8 L Globulin 3.30 H Albumin/Globulin 0.84 Ratio Test 04/17/19 08:40 04/17/19 12:47 Bedside Glucose 116 211 Medications Medications Current Medications Insulin Aspart (Novolog Insulin Pen) NOVOLOG *MILD* ALGORI... WITH MEALS BEDTIME SC Last administered on 04/17/19 12:49; Admin Dose 2 UNIT; Start 03/23/19 at 18:00 IV Flush (NS 3 ml) 3 ml PER PROTOCOL IV Last administered on 04/08/19 05:29; Admin Dose 3 ML; Start 03/23/19 at 18:00 Ondansetron HCl (Zofran Inj) 4 mg Q6H PRN IV NAUSEA/VOMITING Last administered on 04/09/19 17:54; Admin Dose 4 MG; Start 03/23/19 at 18:00 Acetaminophen (Tylenol Tab) 650 mg Q6H PRN PO .PAIN 1-3 OR TEMP Last administered on 04/15/19 10:57; Admin Dose 650 MG; Start 03/23/19 at 18:00 Acetaminophen/ Hydrocodone Bitart ([place] (5/325)) 1 tab Q6H PRN PO .MOD PAIN 4- 6 Last administered on 04/10/19 03:07; Admin Dose 1 TAB; Start 03/23/19 at 18:00 Miscellaneous Information 1 ea NOTE XX ; Start 03/23/19 at 18:00 Glucose (Glutose) 15 gm Q15M PRN PO DECREASED GLUCOSE; Start 03/23/19 at 18:00 Glucose (Glutose) 22.5 gm Q15M PRN PO DECREASED GLUCOSE; Start 03/23/19 at 18:00 Dextrose (D50w Syringe) 25 ml Q15M PRN IV DECREASED GLUCOSE; Start 03/23/19 at 18:00 Dextrose (D50w Syringe) 50 ml Q15M PRN IV DECREASED GLUCOSE; Start 03/23/19 at 18:00 Glucagon (Glucagen) 1 mg Q15M PRN IM DECREASED GLUCOSE; Start 03/23/19 at 18:00 Glucose (Glutose) 15 gm Q15M PRN BUCCAL DECREASED GLUCOSE; Start 03/23/19 at 18:00 Hydralazine HCl (Apresoline) 10 mg Q4H PRN IV FOR SBP>170; Start 03/26/19 at 03:30 Albuterol/ Ipratropium (Duoneb) 3 ml Q2H RESP THERAPY PRN HHN sob; Start 03/26/19 at 12:30 Fluconazole (Diflucan) 100 mg DAILY PO Last administered on 04/17/19 08:42; Admin Dose 100 MG; Start 04/02/19 at 15:30 Acyclovir (Zovirax) 400 mg DAILY PO Last administered on 04/17/19 08:42; Admin Dose 400 MG; Start 04/03/19 at 09:00 Al Hydrox/Mg Hydrox/Simethicone (Mag-Al Plus) 30 ml Q6H PRN PO GASTROINTESTINAL UPSET Last administered on 04/14/19 22:43; Admin Dose 30 ML; Start 04/02/19 at 18:30 Carvedilol (Coreg) 12.5 mg BID PO Last administered on 04/17/19 08:43; Admin Dose 12.5 MG; Start 04/02/19 at 21:00 Dexamethasone (Maxidex 0.1% Oph) 2 drop BID BOTH EYES Last administered on 04/17/19 08:44; Admin Dose 2 DROP; Start 04/03/19 at 21:00 Lisinopril (Zestril) 20 mg BID PO Last administered on 04/17/19 08:43; Admin Dose 20 MG; Start 04/05/19 at 21:00 Vancomycin HCl (Vanco Iv Per Pharmacy) VANCOMYCIN PER PHARMACY PER PROTOCOL XX ; Start 04/10/19 at 16:00 Meropenem/Sodium Chloride 50 ml @ 100 mls/hr Q8 IVPB Last administered on 04/17/19at 05:32; Admin Dose 100 MLS/HR; Start 04/10/19 at 17:00 Famotidine (Pepcid) 20 mg DAILY PO Last administered on 04/17/19 08:43; Admin Dose 20 MG; Start 04/11/19 at 09:00 Magnesium Oxide (Mag-Ox 400) 400 mg BID PO Last administered on 04/17/19 08:42; Admin Dose 400 MG; Start 04/10/19 at 21:00 Loperamide HCl (Imodium Cap) 2 mg Q8H PRN PO DIARRHEA Last administered on 04/15/19 08:40; Admin Dose 2 MG; Start 04/13/19 at 09:00 Furosemide (Lasix) 20 mg DAILY PO ; Start 04/19/19 at 09:00 Insulin Aspart (Novolog Insulin Pen) 6 unit WITH MEALS SC Last administered on 04/17/19at 12:50; Admin Dose 6 UNIT; Start 04/14/19 at 07:50 Insulin Glargine (Lantus) 18 units DAILY@2000 SC Last administered on 04/16/19 21:32; Admin Dose 18 UNITS; Start 04/13/19 at 20:00 Saccharomyces Boulardii (Florastor) 500 mg BID PO Last administered on 04/17/19 08:42; Admin Dose 500 MG; Start 04/15/19 at 11:00 Vancomycin HCl 1.25 gm/Sodium Chloride 250 ml @ 83.333 mls/ hr Q8H IVPB Last administered on 04/17/19 06:05; Admin Dose 83.333 MLS/HR; Start 04/16/19 at 06:00 Alteplase, Recombinant (Cathflo (Activase)) 2 mg MAY REPEAT X1 PRN CATHETER IF CATHETER REMAINS OCCULUDED; Start 04/16/19 at 15:00 Miscellaneous Information (*Rx Drug Level Order Reminder*) VANCO TROUGH @ 1,300 ON... 1300 ONCE XX ; Start 04/18/19 at 13:00; Stop 04/18/19 at 13:01 Jun Ayala DO Apr 17, 2019 14:02
--- NOTE | 2019-04-17 14:32 | CONS ---
Assessment/Plan Assessment/Plan Hospital Course (Demo Recall) No fevers overnight patient looks comfortable denies pain getting blood transfusion Stool for C. difficile negative Indwelling's: Right IJ Port-A-Cath Blood cultures and urine culture negative Antimicrobials: Vanco, Merrem, fluconazole, acyclovir Physical examination: Well-developed middle-aged man who is alert in no distress head atraumatic normocephalic sclera nonicteric vehicle mucosa pink neck is supple chest rise symmetrical breath sounds clear Heart S1-S2 abdomen soft bowel sounds present extremities without cyanosis edema Assessment: 1. Neutropenic fevers 2. AML, newly diagnosed 3. Diabetes 4. Hypertension 5. Pancytopenia Plan: Remains stable, continue prophylactic antimicrobials, f/u oncology recommendations, blood products prn Consultation Date/Type/Reason Admit Date/Time Mar 23, 2019 at 16:10 Initial Consult Date 03/24/19 Type of Consult id Requesting Provider: KATIE PACE NP Date/Time of Note DATE: 04/17/19 TIME: 14:32 Exam/Review of Systems Exam Vitals Vital Signs Date Temp Pulse Resp B/P (MAP) Pulse Ox O2 O2 Flow FiO2 Time Delivery Rate 04/17/19 98.6 08:42 04/17/19 81 18 138/79 99 Room Air 08:23 (98) 04/16/19 21 02:50 Intake and Output 04/16/19 04/16/19 04/17/19 1515:00 23:00 07:00 IntakeIntake Total 720 ml 1150 ml 350 ml OutputOutput Total 1 ml BalanceBalance 719 ml 1150 ml 350 ml Results Result Diagram: 04/17/19 0445 04/17/19 0445 Results 24hrs Laboratory Tests Test 04/16/19 17:38 04/16/19 21:25 04/17/19 02:08 04/17/19 04:45 Bedside Glucose 143 224 H 150 White Blood Count 0.4 L Red Blood Count 2.27 L Hemoglobin 6.9 *L Hematocrit 19.7 L Mean Corpuscular 86.8 Volume Mean Corpuscular 30.4 Hemoglobin Mean Corpuscular 35.0 Hemoglobin Concent Red Cell 12.4 Distribution Width Platelet Count 31 #L Mean Platelet 9.6 Volume Immature 0.000 L Granulocytes % Neutrophils % Lymphocytes % Lymphocytes % 90 H (Manual) Reactive 3 H Lymphocytes % (Manual) Monocytes % Monocytes % 2 (Manual) Eosinophils % Basophils % Blast Cells % 4.7 H (Manual) Nucleated Red 0.0 Blood Cells % Immature 0.000 Granulocytes # Neutrophils # Lymphocytes 0.3 L (Manual) Lymphocytes # Reactive 0.0 Lymphocytes # Monocytes # Monocytes # 0.0 L (Manual) Eosinophils # Basophils # Nucleated Red Blood Cells # Platelet Estimate SIG DECREASED Polychromasia 3+ Poikilocytosis 1+ Anisocytosis 3+ Microcytosis 2+ Macrocytosis 1+ Ovalocytes 1+ Sodium Level 135 Potassium Level 3.4 L Chloride Level 104 Carbon Dioxide 24 Level Anion Gap 7 Blood Urea 7 Nitrogen Creatinine 0.51 L Est Glomerular > 60 Filtrat Rate mL/min Glucose Level 134 # Uric Acid 2.0 L Calcium Level 7.8 L Phosphorus Level 3.0 Magnesium Level 2.0 Total Bilirubin 0.4 Direct Bilirubin 0.00 Indirect Bilirubin 0.4 Aspartate Amino 22 # Transf (AST/SGOT) Alanine 45 Aminotransferase ( ALT/SGPT) Alkaline 75 Phosphatase Lactate 310 L Dehydrogenase Total Protein 6.1 Albumin 2.8 L Globulin 3.30 H Albumin/Globulin 0.84 Ratio Test 04/17/19 08:40 04/17/19 12:47 Bedside Glucose 116 211 Medications Medication Current Medications Insulin Aspart (Novolog Insulin Pen) NOVOLOG *MILD* ALGORI... WITH MEALS BEDT JUAN SC Last administered on 04/17/19 12:49; Admin Dose 2 UNIT; Start 03/23/19 at 18:00 IV Flush (NS 3 ml) 3 ml PER PROTOCOL IV Last administered on 04/08/19 05:29; Admin Dose 3 ML; Start 03/23/19 at 18:00 Ondansetron HCl (Zofran Inj) 4 mg Q6H PRN IV NAUSEA/VOMITING Last administered on 04/09/19 17:54; Admin Dose 4 MG; Start 03/23/19 at 18:00 Acetaminophen (Tylenol Tab) 650 mg Q6H PRN PO .PAIN 1-3 OR TEMP Last administered on 04/15/19 10:57; Admin Dose 650 MG; Start 03/23/19 at 18:00 Acetaminophen/ Hydrocodone Bitart ([place] (5/325)) 1 tab Q6H PRN PO .MOD PAIN 4- 6 Last administered on 7/3/19at 03:07; Admin Dose 1 TAB; Start 03/23/19 at 18:00 Miscellaneous Information 1 ea NOTE XX ; Start 03/23/19 at 18:00 Glucose (Glutose) 15 gm Q15M PRN PO DECREASED GLUCOSE; Start 03/23/19 at 18:00 Glucose (Glutose) 22.5 gm Q15M PRN PO DECREASED GLUCOSE; Start 03/23/19 at 18:00 Dextrose (D50w Syringe) 25 ml Q15M PRN IV DECREASED GLUCOSE; Start 03/23/19 at 18:00 Dextrose (D50w Syringe) 50 ml Q15M PRN IV DECREASED GLUCOSE; Start 03/23/19 at 18:00 Glucagon (Glucagen) 1 mg Q15M PRN IM DECREASED GLUCOSE; Start 03/23/19 at 18:00 Glucose (Glutose) 15 gm Q15M PRN BUCCAL DECREASED GLUCOSE; Start 03/23/19 at 18:00 Hydralazine HCl (Apresoline) 10 mg Q4H PRN IV FOR SBP>170; Start 03/26/19 at 03:30 Albuterol/ Ipratropium (Duoneb) 3 ml Q2H RESP THERAPY PRN HHN sob; Start 03/26/19 at 12:30 Fluconazole (Diflucan) 100 mg DAILY PO Last administered on 04/17/19at 08:42; Admin Dose 100 MG; Start 04/02/19 at 15:30 Acyclovir (Zovirax) 400 mg DAILY PO Last administered on 04/17/19at 08:42; Admin Dose 400 MG; Start 04/03/19 at 09:00 Al Hydrox/Mg Hydrox/Simethicone (Mag-Al Plus) 30 ml Q6H PRN PO GASTROINTESTINAL UPSET Last administered on 04/14/19at 22:43; Admin Dose 30 ML; Start 04/02/19 at 18:30 Carvedilol (Coreg) 12.5 mg BID PO Last administered on 04/17/19 08:43; Admin Dose 12.5 MG; Start 04/02/19 at 21:00 Dexamethasone (Maxidex 0.1% Oph) 2 drop BID BOTH EYES Last administered on 04/17/19 08:44; Admin Dose 2 DROP; Start 04/03/19 at 21:00 Lisinopril (Zestril) 20 mg BID PO Last administered on 04/17/19 08:43; Admin Dose 20 MG; Start 04/05/19 at 21:00 Vancomycin HCl (Vanco Iv Per Pharmacy) VANCOMYCIN PER PHARMACY PER PROTOCOL XX ; Start 04/10/19 at 16:00 Meropenem/Sodium Chloride 50 ml @ 100 mls/hr Q8 IVPB Last administered on 04/17/19at 14:12; Admin Dose 100 MLS/HR; Start 04/10/19 at 17:00 Famotidine (Pepcid) 20 mg DAILY PO Last administered on 04/17/19 08:43; Admin Dose 20 MG; Start 04/11/19 at 09:00 Magnesium Oxide (Mag-Ox 400) 400 mg BID PO Last administered on 04/17/19 08:42; Admin Dose 400 MG; Start 04/10/19 at 21:00 Loperamide HCl (Imodium Cap) 2 mg Q8H PRN PO DIARRHEA Last administered on 04/15/19 08:40; Admin Dose 2 MG; Start 04/13/19 at 09:00 Furosemide (Lasix) 20 mg DAILY PO ; Start 04/19/19 at 09:00 Insulin Aspart (Novolog Insulin Pen) 6 unit WITH MEALS SC Last administered on 04/17/19 12:50; Admin Dose 6 UNIT; Start 04/14/19 at 07:50 Insulin Glargine (Lantus) 18 units DAILY@2000 SC Last administered on 04/16/19 21:32; Admin Dose 18 UNITS; Start 04/13/19 at 20:00 Saccharomyces Boulardii (Florastor) 500 mg BID PO Last administered on 04/17/19 08:42; Admin Dose 500 MG; Start 04/15/19 at 11:00 Vancomycin HCl 1.25 gm/Sodium Chloride 250 ml @ 83.333 mls/ hr Q8H IVPB Last administered on 04/17/19 06:05; Admin Dose 83.333 MLS/HR; Start 04/16/19 at 06 :00 Alteplase, Recombinant (Cathflo (Activase)) 2 mg MAY REPEAT X1 PRN CATHETER IF CATHETER REMAINS OCCULUDED; Start 04/16/19 at 15:00 Miscellaneous Information (*Rx Drug Level Order Reminder*) VANCO TROUGH @ 1,300 ON... 1300 ONCE XX ; Start 04/18/19 at 13:00; Stop 04/18/19 at 13:01 JEANNIE NICHOLSON NP Apr 17, 2019 14:32
[2019-04-17 21:10] VITALS: BP 148/79; PULSE 88; RESP 17
[2019-04-17] MEDS: INSULIN GLARGINE [LANTus] (100 UNITS/ML) SYG SC SCH (21:20)
[2019-04-18] MEDS: MEROPENEM 500MG/50 ML (PMX) 50 ML IVPB SCH ×4 (00:25→21:35)
[2019-04-18] MEDS: VANCOMYCIN HCL 1.25 GM in SOD CHLORIDE 0.9% 250 ML IVPB SCH ×4 (00:25→22:13)
[2019-04-18 02:42] VITALS: BP 147/78; PULSE 90; RESP 20
[2019-04-18 07:42] VITALS: BP 156/87; PULSE 78; RESP 18
[2019-04-18] MEDS: INSULIN ASPART [NOVOLOG] 3 ML PEN SC SCH ×7 (07:50→21:42)
[2019-04-18] MEDS: LISINOPRIL 20 MG TAB PO SCH ×2 (08:30→21:36)
[2019-04-18] MEDS: ACYCLOVIR 400 MG TAB PO SCH (08:30)
[2019-04-18] MEDS: FAMOTIDINE 20 MG TAB PO SCH (08:30)
[2019-04-18] MEDS: FLUCONAZOLE 100 MG TAB PO SCH (08:30)
[2019-04-18] MEDS: MAGNESIUM OXIDE 400 MG TAB PO SCH ×2 (08:30→21:35)
[2019-04-18] MEDS: DEXAMETHASONE 0.1% 5 ML OPH BOTH EYES SCH ×2 (08:31→21:36)
[2019-04-18] MEDS: SACCHAROMYCES BOULARDII 250 MG CAP PO SCH ×2 (08:33→21:36)
[2019-04-18] MEDS ORDERED: POTASSIUM CHLORIDE (SR) 20 MEQ TAB PO STA (08:41)
--- NOTE | 2019-04-18 08:44 | PN ---
Date/Time of Note Date/Time of Note DATE: 04/18/19 TIME: 08:44 Assessment/Plan VTE Prophylaxis Risk score (from Nsg)>0 risk: 6 SCD applied (from Ns): Yes Pharmacological prophylaxis: NA/contraindicated Pharm contraindication: low risk/ambulating, thrombocytopenia Lines/Catheters IV [facility]from [facility] [place] line still needed: Yes Urinary Cath still in place: No Assessment/Plan Hospital Course SUBJECTIVE: Denies any pain or dyspnea. Continues to have some diarrhea. OBJECTIVE: Physical Exam General: Adequately build 54 year-old male lying in bed in no apparent distress. HEENT: Normocephalic, atraumatic. Eyes: Anicteric sclerae, conjunctivae clear. ENT: Nasal septum midline, oral mucosa moist. Neck supple, no JVD noticed. Respiratory: Bilaterally clear breath sounds. No use of accessory muscles of respiration. No adventitious breath sounds. Cardiovascular: S1, S2 heard. Regular rate and rhythm. Abdomen: Soft, nontender, and nondistended. Bowel sounds positive in all 4 quadrants. Genitourinary: Deferred. Extremities: No cyanosis, no clubbing, no edema. Peripheral pulses palpable. Neurologic: Cranial nerves II through XII grossly intact. The patient is awake, alert, and oriented. Skin: Normal skin turgor. No skin rashes. Labs & Vitals per chart ASSESSMENT & PLAN 54-year-old male with comorbidities including hypertension and diabetes mellitus who presented to the emergency room on 03/22/2019 with febrile illness and was discharged home on oral antibiotics, who was called back on 03/23/2019 as per the instruction of the pathologist for increased blast cells on CBC drawn on 03/22/2019. 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 2. Neutropenic fevers. On antimicrobials as per ID. Reyes cultures remain negative. 3. Diabetes mellitus type 2. Hemoglobin A1c 9.6. Continue the patient on sliding scale insulin along with pre-meal insulin and basal insulin. 4. Hypertension. Continue antihypertensives. 5. Cardiomyopathy. EF of 35-40%. Continue BBs and ACEIs. Cardiology following. 6. Acute CHF exacerbation, systolic dysfunction. Continue diuretic therapy. Switched to oral diuretic therapy. 7. Fluids, electrolytes, and nutrition. Carbohydrate controlled, neutropenic diet. 8. DVT prophylaxis. Bilateral SCDs. 9. Plan. Continue to monitor for any secondary infection. Discharge the patient home once his pancytopenia is improved. Transfusion of blood products will be deferred to oncology. The patient was seen in collaboration with Dr. Avilez. Result Diagram: 04/18/19 0425 04/18/19 0425 Results 24hrs Laboratory Tests Test 04/17/19 12:47 04/17/19 17:22 04/17/19 21:09 04/18/19 04:25 Bedside Glucose 211 126 144 White Blood Count 0.7 #L Red Blood Count 2.96 #L Hemoglobin 9.2 #L Hematocrit 25.4 #L Mean Corpuscular 85.8 Volume Mean Corpuscular 31.1 Hemoglobin Mean Corpuscular 36.2 Hemoglobin Concen t Red Cell 12.0 Distribution Width Platelet Count 42 #L Mean Platelet 10.1 Volume Immature 1.500 H Granulocytes % Neutrophils % Lymphocytes % Monocytes % Eosinophils % Basophils % Nucleated Red 0.0 Blood Cells % Immature 0.010 Granulocytes # Neutrophils # Lymphocytes # Monocytes # Eosinophils # Basophils # Sodium Level 138 Potassium Level 3.2 L Chloride Level 102 Carbon Dioxide 27 Level Anion Gap 9 Blood Urea 7 Nitrogen Creatinine 0.43 L Est Glomerular > 60 Filtrat Rate mL/min Glucose Level 113 Calcium Level 7.9 L Phosphorus Level 3.3 Magnesium Level 2.0 Test 04/18/19 07:00 04/18/19 08:18 Lab Scanned BLOOD TRANSFUSIO Report N Bedside Glucose 104 Exam/Review of Systems Exam Vitals Vital Signs Date Temp Pulse Resp B/P (MAP) Pulse Ox O2 O2 Flow FiO2 Time Delivery Rate 04/18/19 99.0 78 18 156/87 97 Room Air 07:42 (110) 04/16/19 21 02:50 Intake and Output 04/17/19 04/17/19 04/18/19 1515:00 23:00 07:00 IntakeIntake Total 1050 ml 800 ml 700 ml BalanceBalance 1050 ml 800 ml 700 ml Results Results 24hrs Laboratory Tests Test 04/17/19 12:47 04/17/19 17:22 04/17/19 21:09 04/18/19 04:25 Bedside Glucose 211 126 144 White Blood Count 0.7 #L Red Blood Count 2.96 #L Hemoglobin 9.2 #L Hematocrit 25.4 #L Mean Corpuscular 85.8 Volume Mean Corpuscular 31.1 Hemoglobin Mean Corpuscular 36.2 Hemoglobin Concen t Red Cell 12.0 Distribution Width Platelet Count 42 #L Mean Platelet 10.1 Volume Immature 1.500 H Granulocytes % Neutrophils % Lymphocytes % Monocytes % Eosinophils % Basophils % Nucleated Red 0.0 Blood Cells % Immature 0.010 Granulocytes # Neutrophils # Lymphocytes # Monocytes # Eosinophils # Basophils # Sodium Level 138 Potassium Level 3.2 L Chloride Level 102 Carbon Dioxide 27 Level Anion Gap 9 Blood Urea 7 Nitrogen Creatinine 0.43 L Est Glomerular > 60 Filtrat Rate mL/min Glucose Level 113 Calcium Level 7.9 L Phosphorus Level 3.3 Magnesium Level 2.0 Test 04/18/19 07:00 04/18/19 08:18 Lab Scanned BLOOD TRANSFUSIO Report N Bedside Glucose 104 Medications Medication Current Medications Insulin Aspart (Novolog Insulin Pen) NOVOLOG *MILD* ALGORI... WITH MEALS BEDTIME SC Last administered on 04/17/19 12:49; Admin Dose 2 UNIT; Start 03/23/19 at 18:00 IV Flush (NS 3 ml) 3 ml PER PROTOCOL IV Last administered on 04/08/19 05:29; Admin Dose 3 ML; Start 03/23/19 at 18:00 Ondansetron HCl (Zofran Inj) 4 mg Q6H PRN IV NAUSEA/VOMITING Last administered on 04/09/19 17:54; Admin Dose 4 MG; Start 03/23/19 at 18:00 Acetaminophen (Tylenol Tab) 650 mg Q6H PRN PO .PAIN 1-3 OR TEMP Last administered on 04/15/19 10:57; Admin Dose 650 MG; Start 03/23/19 at 18:00 Acetaminophen/ Hydrocodone Bitart ([place] (5/325)) 1 tab Q6H PRN PO .MOD PAIN 4- 6 Last administered on 04/10/19 03:07; Admin Dose 1 TAB; Start 03/23/19 at 18:00 Miscellaneous Information 1 ea NOTE XX ; Start 03/23/19 at 18:00 Glucose (Glutose) 15 gm Q15M PRN PO DECREASED GLUCOSE; Start 03/23/19 at 18:00 Glucose (Glutose) 22.5 gm Q15M PRN PO DECREASED GLUCOSE; Start 03/23/19 at 18:00 Dextrose (D50w Syringe) 25 ml Q15M PRN IV DECREASED GLUCOSE; Start 03/23/19 at 18:00 Dextrose (D50w Syringe) 50 ml Q15M PRN IV DECREASED GLUCOSE; Start 03/23/19 at 18:00 Glucagon (Glucagen) 1 mg Q15M PRN IM DECREASED GLUCOSE; Start 03/23/19 at 18:00 Glucose (Glutose) 15 gm Q15M PRN BUCCAL DECREASED GLUCOSE; Start 03/23/19 at 18:00 Hydralazine HCl (Apresoline) 10 mg Q4H PRN IV FOR SBP>170; Start 03/26/19 at 03:30 Albuterol/ Ipratropium (Duoneb) 3 ml Q2H RESP THERAPY PRN HHN sob; Start 03/26/19 at 12:30 Fluconazole (Diflucan) 100 mg DAILY PO Last administered on 04/18/19 08:30; Admin Dose 100 MG; Start 04/02/19 at 15:30 Acyclovir (Zovirax) 400 mg DAILY PO Last administered on 04/18/19at 08:30; Admin Dose 400 MG; Start 04/03/19 at 09:00 Al Hydrox/Mg Hydrox/Simethicone (Mag-Al Plus) 30 ml Q6H PRN PO GASTROINTESTINAL UPSET Last administered on 04/14/19at 22:43; Admin Dose 30 ML; Start 04/02/19 at 18:30 Carvedilol (Coreg) 12.5 mg BID PO Last administered on 04/18/19 08:31; Admin Dose 12.5 MG; Start 04/02/19 at 21:00 Dexamethasone (Maxidex 0.1% Oph) 2 drop BID BOTH EYES Last administered on 04/18/19 08:31; Admin Dose 2 DROP; Start 04/03/19 at 21:00 Lisinopril (Zestril) 20 mg BID PO Last administered on 04/18/19 08:30; Admin Dose 20 MG; Start 04/05/19 at 21:00 Vancomycin HCl (Vanco Iv Per Pharmacy) VANCOMYCIN PER PHARMACY PER PROTOCOL XX ; Start 04/10/19 at 16:00 Meropenem/Sodium Chloride 50 ml @ 100 mls/hr Q8 IVPB Last administered on 04/18/19at 06:30; Admin Dose 100 MLS/HR; Start 04/10/19 at 17:00 Famotidine (Pepcid) 20 mg DAILY PO Last administered on 04/18/19 08:30; Admin Dose 20 MG; Start 04/11/19 at 09:00 Magnesium Oxide (Mag-Ox 400) 400 mg BID PO Last administered on 04/18/19 08: 30; Admin Dose 400 MG; Start 04/10/19 at 21:00 Loperamide HCl (Imodium Cap) 2 mg Q8H PRN PO DIARRHEA Last administered on 04/15/19 08:40; Admin Dose 2 MG; Start 04/13/19 at 09:00 Furosemide (Lasix) 20 mg DAILY PO ; Start 04/19/19 at 09:00 Insulin Aspart (Novolog Insulin Pen) 6 unit WITH MEALS SC Last administered on 04/18/19 08:42; Admin Dose 6 UNIT; Start 04/14/19 at 07:50 Insulin Glargine (Lantus) 18 units DAILY@2000 SC Last administered on 04/17/19 21:20; Admin Dose 18 UNITS; Start 04/13/19 at 20:00 Saccharomyces Boulardii (Florastor) 500 mg BID PO Last administered on 04/18/19 08:33; Admin Dose 500 MG; Start 04/15/19 at 11:00 Vancomycin HCl 1.25 gm/Sodium Chloride 250 ml @ 83.333 mls/ hr Q8H IVPB Last administered on 04/18/19 06:52; Admin Dose 83.333 MLS/HR; Start 04/16/19 at 06:0 0 Alteplase, Recombinant (Cathflo (Activase)) 2 mg MAY REPEAT X1 PRN CATHETER IF CATHETER REMAINS OCCULUDED; Start 04/16/19 at 15:00 Miscellaneous Information (*Rx Drug Level Order Reminder*) VANCO TROUGH @ 1,300 ON... 1300 ONCE XX ; Start 04/18/19 at 13:00; Stop 04/18/19 at 13:01 Potassium Chloride (Klor-Con 20) 40 meq ONCE STAT PO ; Start 04/18/19 at 08:41; Stop 04/18/19 at 08:42; Status UNKATIE MORALES NP Apr 18, 2019 08:44
--- NOTE | 2019-04-18 09:39 | PN ---
DATE: 04/17/2019 SUBJECTIVE: The patient states that he feels weak but has no other specific complaints. He is prese ntly eating and states he has a good appetite. He has no complaints of mouth pain or discomfort. No dysphagia or odynophagia. The patient denies abdominal pain. No diarrhea or other changes in bowel habits. He has had no comp laints of fevers or chills. No bone pain. OBJECTIVE: GENERAL: The patient is a well-developed, well-nourished male in no acute distress. VITAL SIGNS: Temperature 98.9 orally, pulse 80 per minute and regular, respirations 18, blood pressu re 138/79, pulse oximetry is 99% on room air. SKIN: No ecchymosis, no petechiae or rashes, but pale. HEENT: Normocephalic. No evidence of trauma. Pupils equal, round, reactive to light and accommodat ion. Sclerae nonicteric. Oral mucosa is moist without lesions. There is alopecia. NECK: Supple. No jugular venous distention or thyroid enlargement. CHEST: Clear to auscultation and percussion. No rhonchi, wheezes, rales or rubs. There is a double lumen [place] catheter in the right anterior chest wall. There is no erythema or tenderness along t he subcutaneous tunnel. No pain on percussion of spine, sternum, clavicles or ribs. HEART: Regular sinus rhythm. No S3, S4 or murmurs. ABDOMEN: Soft, no masses, no ascites. Bowel sounds are active. EXTREMITIES: No clubbing. No edema or cyanosis. NEUROLOGIC: Normal. LABORATORY DATA: Sodium 137, potassium 3.4, creatinine 0.51, BUN is 7, uric acid 2, total bilirubin 0.4, direct bilirubin 0, AST 22, ALT 45, alkaline phosphatase 75. White count is 400. There are 4.7 % blasts noted IN the differential. Absolute neutrophil count is 0. Hemoglobin 6.9, hematocrit 19.7 and platelet count 31,000. ASSESSMENT: 1. Acute myelogenous leukemia. Day 18 status post initiation of induction chemotherapy. 2. Pancytopenia secondary to chemotherapy. 3. Neutropenic fever, resolved. PLAN: The patient is to receive 2 units of packed red blood cells today. Does not require platelets . I am concerned that the review of CBCs over the past three days has demonstrated some circulating maeve sts in the peripheral blood. At the present time, today, there are 4.7% of the total white cells. We will continue to monitor CBCs and transfuse as necessary. Dictated By: ERIN COLLADO MD SR/NTS Conf#: [id number] DID#: [id number] CC: KURTIS WHITTAKER MD;*EndCC*
--- NOTE | 2019-04-18 11:34 | CONS ---
Assessment/Plan Assessment/Plan Hospital Course (Demo Recall) No fevers overnight patient looks comfortable Stool for C. difficile negative Indwelling's: Right IJ Port-A-Cath Blood cultures and urine culture negative Antimicrobials: Vanco, Merrem, fluconazole, acyclovir Physical examination: Well-developed middle-aged man who is alert in no distress head atraumatic normocephalic sclera nonicteric vehicle mucosa pink neck is supple chest rise symmetrical breath sounds clear Heart S1-S2 abdomen soft bowel sounds present extremities without cyanosis edema Assessment: 1. S/p neutropenic fevers 2. AML, newly diagnosed 3. Diabetes 4. Hypertension 5. Pancytopenia Plan: Remains stable, continue prophylactic antimicrobials, oncology recommendations, blood products prn Consultation Date/Type/Reason Admit Date/Time Mar 23, 2019 at 16:10 Initial Consult Date 03/24/19 Type of Consult id Requesting Provider: KATIE PACE NP Date/Time of Note DATE: 04/18/19 TIME: 11:33 Exam/Review of Systems Exam Vitals Vital Signs Date Temp Pulse Resp B/P (MAP) Pulse Ox O2 O2 Flow FiO2 Time Delivery Rate 04/18/19 99.0 78 18 156/87 97 Room Air 07:42 (110) 04/16/19 21 02:50 Intake and Output 04/17/19 04/17/19 04/18/19 1515:00 23:00 07:00 IntakeIntake Total 1050 ml 800 ml 700 ml BalanceBalance 1050 ml 800 ml 700 ml Results Result Diagram: 04/18/19 0425 04/18/19 0425 Results 24hrs Laboratory Tests Test 04/17/19 12:47 04/17/19 17:22 04/17/19 21:09 04/18/19 04:25 Bedside Glucose 211 126 144 White Blood 0.7 #L Count Red Blood Count 2.96 #L Hemoglobin 9.2 #L Hematocrit 25.4 #L Mean Corpuscular 85.8 Volume Mean Corpuscular 31.1 Hemoglobin Mean Corpuscular 36.2 Hemoglobin Sharon nt Red Cell 12.0 Distribution Width Platelet Count 42 #L Mean Platelet 10.1 Volume Immature 1.500 H Granulocytes % Neutrophils % Segmented 2 L Neutrophils % (Manual) Band Neutrophils 1 % (Manual) Lymphocytes % Lymphocytes % 75 H (Manual) Reactive 3 H Lymphocytes % (Manual) Monocytes % Monocytes % 12 H (Manual) Eosinophils % Basophils % Myelocytes % 1 H (Manual) Blast Cells % 7.1 H (Manual) Nucleated Red 2 H Blood Cells % Immature 0.010 Granulocytes # Neutrophils # Neutrophils # 0.0 L (Manual) Band Neutrophils 0.0 # Lymphocytes 0.5 L (Manual) Lymphocytes # Reactive 0.0 Lymphocytes # Monocytes # Monocytes # 0.0 L (Manual) Eosinophils # Basophils # Myelocytes # 0.0 White Cell @See below Morphology Comment Platelet SIG DECREASED Estimate Giant Platelets 2 H Polychromasia 3+ Poikilocytosis 1+ Anisocytosis 1+ Target Cells 1+ Red Cell @See below Morphology Comment Sodium Level 138 Potassium Level 3.2 L Chloride Level 102 Carbon Dioxide 27 Level Anion Gap 9 Blood Urea 7 Nitrogen Creatinine 0.43 L Est Glomerular > 60 Filtrat Rate mL/min Glucose Level 113 Calcium Level 7.9 L Phosphorus Level 3.3 Magnesium Level 2.0 Test 04/18/19 07:00 04/18/19 08:18 Lab Scanned BLOOD TRANSFUSI Report ON Bedside Glucose 104 Medications Medication Current Medications Insulin Aspart (Novolog Insulin Pen) NOVOLOG *MILD* ALGORI... WITH MEALS BEDTIME SC Last administered on 04/17/19 12:49; Admin Dose 2 UNIT; Start 03/23/19 at 18:00 IV Flush (NS 3 ml) 3 ml PER PROTOCOL IV Last administered on 04/08/19 05:29; Admin Dose 3 ML; Start 03/23/19 at 18:00 Ondansetron HCl (Zofran Inj) 4 mg Q6H PRN IV NAUSEA/VOMITING Last administered on 04/09/19 17:54; Admin Dose 4 MG; Start 03/23/19 at 18:00 Acetaminophen (Tylenol Tab) 650 mg Q6H PRN PO .PAIN 1-3 OR TEMP Last administered on 04/15/19 10:57; Admin Dose 650 MG; Start 03/23/19 at 18:00 Acetaminophen/ Hydrocodone Bitart ([place] (5/325)) 1 tab Q6H PRN PO .MOD PAIN 4- 6 Last administered on 04/10/19 03:07; Admin Dose 1 TAB; Start 03/23/19 at 18:00 Miscellaneous Information 1 ea NOTE XX ; Start 03/23/19 at 18:00 Glucose (Glutose) 15 gm Q15M PRN PO DECREASED GLUCOSE; Start 03/23/19 at 18:00 Glucose (Glutose) 22.5 gm Q15M PRN PO DECREASED GLUCOSE; Start 03/23/19 at 18:00 Dextrose (D50w Syringe) 25 ml Q15M PRN IV DECREASED GLUCOSE; Start 03/23/19 at 18:00 Dextrose (D50w Syringe) 50 ml Q15M PRN IV DECREASED GLUCOSE; Start 03/23/19 at 18:00 Glucagon (Glucagen) 1 mg Q15M PRN IM DECREASED GLUCOSE; Start 03/23/19 at 18:00 Glucose (Glutose) 15 gm Q15M PRN BUCCAL DECREASED GLUCOSE; Start 03/23/19 at 18:00 Hydralazine HCl (Apresoline) 10 mg Q4H PRN IV FOR SBP>170; Start 03/26/19 at 03:30 Albuterol/ Ipratropium (Duoneb) 3 ml Q2H RESP THERAPY PRN HHN sob; Start 03/26/19 at 12:30 Fluconazole (Diflucan) 100 mg DAILY PO Last administered on 04/18/19 08:30; Admin Dose 100 MG; Start 04/02/19 at 15:30 Acyclovir (Zovirax) 400 mg DAILY PO Last administered on 04/18/19 08:30; Admin Dose 400 MG; Start 04/03/19 at 09:00 Al Hydrox/Mg Hydrox/Simethicone (Mag-Al Plus) 30 ml Q6H PRN PO GASTROINTESTINAL UPSET Last administered on 04/14/19at 22:43; Admin Dose 30 ML; Start 04/02/19 at 18:30 Carvedilol (Coreg) 12.5 mg BID PO Last administered on 04/18/19 08:31; Admin Dose 12.5 MG; Start 04/02/19 at 21:00 Dexamethasone (Maxidex 0.1% Oph) 2 drop BID BOTH EYES Last administered on 04/18/19 08:31; Admin Dose 2 DROP; Start 04/03/19 at 21:00 Lisinopril (Zestril) 20 mg BID PO Last administered on 04/18/19 08:30; Admin Dose 20 MG; Start 04/05/19 at 21:00 Vancomycin HCl (Vanco Iv Per Pharmacy) VANCOMYCIN PER PHARMACY PER PROTOCOL XX ; Start 04/10/19 at 16:00 Meropenem/Sodium Chloride 50 ml @ 100 mls/hr Q8 IVPB Last administered on 04/18/19 06:30; Admin Dose 100 MLS/HR; Start 04/10/19 at 17:00 Famotidine (Pepcid) 20 mg DAILY PO Last administered on 04/18/19 08:30; Admin Dose 20 MG; Start 04/11/19 at 09:00 Magnesium Oxide (Mag-Ox 400) 400 mg BID PO Last administered on 04/18/19 08:30; Admin Dose 400 MG; Start 04/10/19 at 21:00 Loperamide HCl (Imodium Cap) 2 mg Q8H PRN PO DIARRHEA Last administered on 04/15/19 08:40; Admin Dose 2 MG; Start 04/13/19 at 09:00 Furosemide (Lasix) 20 mg DAILY PO ; Start 04/19/19 at 09:00 Insulin Aspart (Novolog Insulin Pen) 6 unit WITH MEALS SC Last administered on 04/18/19 08:42; Admin Dose 6 UNIT; Start 04/14/19 at 07:50 Insulin Glargine (Lantus) 18 units DAILY@2000 SC Last administered on 04/17/19 21:20; Admin Dose 18 UNITS; Start 04/13/19 at 20:00 Saccharomyces Boulardii (Florastor) 500 mg BID PO Last administered on 04/18/19 08:33; Admin Dose 500 MG; Start 04/15/19 at 11:00 Vancomycin HCl 1.25 gm/Sodium Chloride 250 ml @ 83.333 mls/ hr Q8H IVPB Last administered on 04/18/19 06:52; Admin Dose 83.333 MLS/HR; Start 04/16/19 at 06:00 Alteplase, Recombinant (Cathflo (Activase)) 2 mg MAY REPEAT X1 PRN CATHETER IF CATHETER REMAINS OCCULUDED; Start 04/16/19 at 15:00 Miscellaneous Information (*Rx Drug Level Order Reminder*) VANCO TROUGH @ 1,300 ON... 1300 ONCE XX ; Start 04/18/19 at 13:00; Stop 04/18/19 at 13:01 JEANNIE NICHOLSON SMOKING PIPE COATER Apr 18, 2019 11:34
[2019-04-18 15:30] VITALS: BP 146/78; PULSE 80; RESP 20
--- NOTE | 2019-04-18 16:10 | PN ---
Date/Time of Note Date/Time of Note DATE: 04/18/19 TIME: 16:08 Assessment/Plan VTE Prophylaxis Risk score (from Ns)>0 risk: 4 SCD applied (from [facility] [place]): Yes Pharmacological prophylaxis: NA/contraindicated Pharm contraindication: thrombocytopenia Lines/Catheters IV [facility]from [facility] [place] line still needed: Yes Urinary Cath still in place: No Assessment/Plan Assessment/Plan Today is day 20 of induction. Pt is feeling better but the WBC that are rising show blasts. Hgb is up to 9.2, reflecting the transfusions given yesterday. Platelets are 42. The FISH studies and chromosomal studies from [place] should be ready tomorrow. However the blasts in the peripheral blood suggest that the first induction was not fully reflective. This is a poor prognostic sign. After the [facility] data is available, we will need to reconsider the treatment plan. He is <60 years old, so marrow transplant may also be a consideration. Result Diagram: 04/18/19 0425 04/18/19 0425 Results 24hrs Laboratory Tests Test 04/17/19 17:22 04/17/19 21:09 04/18/19 04:25 04/18/19 07:00 Bedside Glucose 126 144 White Blood 0.7 #L Count Red Blood Count 2.96 #L Hemoglobin 9.2 #L Hematocrit 25.4 #L Mean Corpuscular 85.8 Volume Mean Corpuscular 31.1 Hemoglobin Mean Corpuscular 36.2 Hemoglobin Sharon nt Red Cell 12.0 Distribution Width Platelet Count 42 #L Mean Platelet 10.1 Volume Immature 1.500 H Granulocytes % Neutrophils % Segmented 2 L Neutrophils % (Manual) Band Neutrophils 1 % (Manual) Lymphocytes % Lymphocytes % 75 H (Manual) Reactive 3 H Lymphocytes % (Manual) Monocytes % Monocytes % 12 H (Manual) Eosinophils % Basophils % Myelocytes % 1 H (Manual) Blast Cells % 7.1 H (Manual) Nucleated Red 2 H Blood Cells % Immature 0.010 Granulocytes # Neutrophils # Neutrophils # 0.0 L (Manual) Band Neutrophils 0.0 # Lymphocytes 0.5 L (Manual) Lymphocytes # Reactive 0.0 Lymphocytes # Monocytes # Monocytes # 0.0 L (Manual) Eosinophils # Basophils # Myelocytes # 0.0 White Cell @See below Morphology Comment Platelet SIG DECREASED Estimate Giant Platelets 2 H Polychromasia 3+ Poikilocytosis 1+ Anisocytosis 1+ Target Cells 1+ Red Cell @See below Morphology Comment Sodium Level 138 Potassium Level 3.2 L Chloride Level 102 Carbon Dioxide 27 Level Anion Gap 9 Blood Urea 7 Nitrogen Creatinine 0.43 L Est Glomerular > 60 Filtrat Rate mL/min Glucose Level 113 Calcium Level 7.9 L Phosphorus Level 3.3 Magnesium Level 2.0 Lab Scanned BLOOD TRANSFUSI Report ON Test 04/18/19 08:18 04/18/19 12:22 04/18/19 13:10 Bedside Glucose 104 179 Vancomycin Level 15.0 Trough Subjective 24 Hr Interval Summary Free Text/Dictation Pt is feeling better after the RBC transfusions done yesterday. Exam/Review of Systems Exam Vitals Vital Signs Date Temp Pulse Resp B/P (MAP) Pulse Ox O2 O2 Flow FiO2 Time Delivery Rate 04/18/19 99.1 80 20 146/78 98 Room Air 15:30 (100) 04/16/19 21 02:50 Intake and Output 04/17/19 04/17/19 04/18/19 1515:00 23:00 07:00 IntakeIntake Total 1050 ml 800 ml 700 ml BalanceBalance 1050 ml 800 ml 700 ml Constitutional: alert, oriented Head: normocephalic Eyes: other (conjunctival pallor) Neck: supple Respiratory: clear to auscultation Cardiovascular: regular rate and rhythm Gastrointestinal: soft, non-tender Lymph: nl lymph nodes Results Results 24hrs Laboratory Tests Test 04/17/19 17:22 04/17/19 21:09 04/18/19 04:25 04/18/19 07:00 Bedside Glucose 126 144 White Blood 0.7 #L Count Red Blood Count 2.96 #L Hemoglobin 9.2 #L Hematocrit 25.4 #L Mean Corpuscular 85.8 Volume Mean Corpuscular 31.1 Hemoglobin Mean Corpuscular 36.2 Hemoglobin Sharon nt Red Cell 12.0 Distribution Width Platelet Count 42 #L Mean Platelet 10.1 Volume Immature 1.500 H Granulocytes % Neutrophils % Segmented 2 L Neutrophils % (Manual) Band Neutrophils 1 % (Manual) Lymphocytes % Lymphocytes % 75 H (Manual) Reactive 3 H Lymphocytes % (Manual) Monocytes % Monocytes % 12 H (Manual) Eosinophils % Basophils % Myelocytes % 1 H (Manual) Blast Cells % 7.1 H (Manual) Nucleated Red 2 H Blood Cells % Immature 0.010 Granulocytes # Neutrophils # Neutrophils # 0.0 L (Manual) Band Neutrophils 0.0 # Lymphocytes 0.5 L (Manual) Lymphocytes # Reactive 0.0 Lymphocytes # Monocytes # Monocytes # 0.0 L (Manual) Eosinophils # Basophils # Myelocytes # 0.0 White Cell @See below Morphology Comment Platelet SIG DECREASED Estimate Giant Platelets 2 H Polychromasia 3+ Poikilocytosis 1+ Anisocytosis 1+ Target Cells 1+ Red Cell @See below Morphology Comment Sodium Level 138 Potassium Level 3.2 L Chloride Level 102 Carbon Dioxide 27 Level Anion Gap 9 Blood Urea 7 Nitrogen Creatinine 0.43 L Est Glomerular > 60 Filtrat Rate mL/min Glucose Level 113 Calcium Level 7.9 L Phosphorus Level 3.3 Magnesium Level 2.0 Lab Scanned BLOOD TRANSFUSI Report ON Test 04/18/19 08:18 04/18/19 12:22 04/18/19 13:10 Bedside Glucose 104 179 Vancomycin Level 15.0 Trough Medications Medication Current Medications Insulin Aspart (Novolog Insulin Pen) NOVOLOG *MILD* ALGORI... WITH MEALS BEDTIME SC Last administered on 04/18/19 13:14; Admin Dose 1 UNIT; Start 03/23/19 at 18:00 IV Flush (NS 3 ml) 3 ml PER PROTOCOL IV Last administered on 04/08/19 05:29; Admin Dose 3 ML; Start 03/23/19 at 18:00 Ondansetron HCl (Zofran Inj) 4 mg Q6H PRN IV NAUSEA/VOMITING Last administered on 04/09/19 17:54; Admin Dose 4 MG; Start 03/23/19 at 18:00 Acetaminophen (Tylenol Tab) 650 mg Q6H PRN PO .PAIN 1-3 OR TEMP Last administered on 04/15/19 10:57; Admin Dose 650 MG; Start 03/23/19 at 18:00 Acetaminophen/ Hydrocodone Bitart ([place] (5/325)) 1 tab Q6H PRN PO .MOD PAIN 4- 6 Last administered on 04/10/19 03:07; Admin Dose 1 TAB; Start 03/23/19 at 18:00 Miscellaneous Information 1 ea NOTE XX ; Start 03/23/19 at 18:00 Glucose (Glutose) 15 gm Q15M PRN PO DECREASED GLUCOSE; Start 03/23/19 at 18:00 Glucose (Glutose) 22.5 gm Q15M PRN PO DECREASED GLUCOSE; Start 03/23/19 at 18:00 Dextrose (D50w Syringe) 25 ml Q15M PRN IV DECREASED GLUCOSE; Start 03/23/19 at 18:00 Dextrose (D50w Syringe) 50 ml Q15M PRN IV DECREASED GLUCOSE; Start 03/23/19 at 18:00 Glucagon (Glucagen) 1 mg Q15M PRN IM DECREASED GLUCOSE; Start 03/23/19 at 18:00 Glucose (Glutose) 15 gm Q15M PRN BUCCAL DECREASED GLUCOSE; Start 03/23/19 at 18:00 Hydralazine HCl (Apresoline) 10 mg Q4H PRN IV FOR SBP>170; Start 03/26/19 at 03:30 Albuterol/ Ipratropium (Duoneb) 3 ml Q2H RESP THERAPY PRN HHN sob; Start 03/26/19 at 12:30 Fluconazole (Diflucan) 100 mg DAILY PO Last administered on 04/18/19 08:30; Admin Dose 100 MG; Start 04/02/19 at 15:30 Acyclovir (Zovirax) 400 mg DAILY PO Last administered on 04/18/19 08:30; Admin Dose 400 MG; Start 04/03/19 at 09:00 Al Hydrox/Mg Hydrox/Simethicone (Mag-Al Plus) 30 ml Q6H PRN PO GASTROINTESTINAL UPSET Last administered on 04/14/19at 22:43; Admin Dose 30 ML; Start 04/02/19 at 18:30 Carvedilol (Coreg) 12.5 mg BID PO Last administered on 04/18/19 08:31; Admin Dose 12.5 MG; Start 04/02/19 at 21:00 Dexamethasone (Maxidex 0.1% Oph) 2 drop BID BOTH EYES Last administered on 04/18/19 08:31; Admin Dose 2 DROP; Start 04/03/19 at 21:00 Lisinopril (Zestril) 20 mg BID PO Last administered on 04/18/19 08:30; Admin Dose 20 MG; Start 04/05/19 at 21:00 Vancomycin HCl (Vanco Iv Per Pharmacy) VANCOMYCIN PER PHARMACY PER PROTOCOL XX ; Start 04/10/19 at 16:00 Meropenem/Sodium Chloride 50 ml @ 100 mls/hr Q8 IVPB Last administered on 04/18/19 13:34; Admin Dose 100 MLS/HR; Start 04/10/19 at 17:00 Famotidine (Pepcid) 20 mg DAILY PO Last administered on 04/18/19 08:30; Admin Dose 20 MG; Start 04/11/19 at 09:00 Magnesium Oxide (Mag-Ox 400) 400 mg BID PO Last administered on 04/18/19 08:30; Admin Dose 400 MG; Start 04/10/19 at 21:00 Loperamide HCl (Imodium Cap) 2 mg Q8H PRN PO DIARRHEA Last administered on 04/15/19 08:40; Admin Dose 2 MG; Start 04/13/19 at 09:00 Furosemide (Lasix) 20 mg DAILY PO ; Start 04/19/19 at 09:00 Insulin Aspart (Novolog Insulin Pen) 6 unit WITH MEALS SC Last administered on 04/18/19 13:15; Admin Dose 6 UNIT; Start 04/14/19 at 07:50 Insulin Glargine (Lantus) 18 units DAILY@2000 SC Last administered on 04/17/19 21:20; Admin Dose 18 UNITS; Start 04/13/19 at 20:00 Saccharomyces Boulardii (Florastor) 500 mg BID PO Last administered on 04/18/19 08:33; Admin Dose 500 MG; Start 04/15/19 at 11:00 Vancomycin HCl 1.25 gm/Sodium Chloride 250 ml @ 83.333 mls/ hr Q8H IVPB Last administered on 04/18/19 14:31; Admin Dose 83.333 MLS/HR; Start 04/16/19 at 06:00 Alteplase, Recombinant (Cathflo (Activase)) 2 mg MAY REPEAT X1 PRN CATHETER IF CATHETER REMAINS OCCULUDED; Start 04/16/19 at 15:00 BETTE MALDONADO MD Apr 18, 2019 16:10
[2019-04-18 20:17] VITALS: BP 162/88; PULSE 80; RESP 17
[2019-04-18] MEDS: INSULIN GLARGINE [LANTus] (100 UNITS/ML) SYG SC SCH (21:41)
[2019-04-19] MEDS: MEROPENEM 500MG/50 ML (PMX) 50 ML IVPB SCH ×3 (05:44→20:52)
[2019-04-19] MEDS: VANCOMYCIN HCL 1.25 GM in SOD CHLORIDE 0.9% 250 ML IVPB SCH ×3 (06:29→21:43)
[2019-04-19 07:31] VITALS: BP 168/72; PULSE 78; RESP 19
[2019-04-19] MEDS: INSULIN ASPART [NOVOLOG] 3 ML PEN SC SCH ×7 (07:50→21:08)
[2019-04-19] MEDS: ACYCLOVIR 400 MG TAB PO SCH (08:34)
[2019-04-19] MEDS: SACCHAROMYCES BOULARDII 250 MG CAP PO SCH ×2 (08:34→20:51)
[2019-04-19] MEDS: FAMOTIDINE 20 MG TAB PO SCH (08:35)
[2019-04-19] MEDS: MAGNESIUM OXIDE 400 MG TAB PO SCH ×2 (08:35→20:51)
[2019-04-19] MEDS: FLUCONAZOLE 100 MG TAB PO SCH (08:35)
[2019-04-19] MEDS: FUROSEMIDE 20 MG TAB PO SCH (08:35)
[2019-04-19] MEDS: LISINOPRIL 20 MG TAB PO SCH ×2 (08:35→20:52)
[2019-04-19] MEDS: DEXAMETHASONE 0.1% 5 ML OPH BOTH EYES SCH ×2 (09:04→20:51)
--- NOTE | 2019-04-19 09:45 | PN ---
Date/Time of Note Date/Time of Note DATE: 04/19/19 TIME: 09:45 Assessment/Plan VTE Prophylaxis Risk score (from Ns)>0 risk: 4 SCD applied (from Ns): Yes Pharmacological prophylaxis: NA/contraindicated Pharm contraindication: thrombocytopenia Lines/Catheters [facility] [place] line still needed: Yes Urinary Cath still in place: No Assessment/Plan Hospital Course SUBJECTIVE: Denies any pain or dyspnea. OBJECTIVE: Physical Exam General: Adequately build 54 year-old male lying in bed in no apparent distress. HEENT: Normocephalic, atraumatic. Eyes: Anicteric sclerae, conjunctivae clear. E NT: Nasal septum midline, oral mucosa moist. Neck supple, no JVD noticed. Respiratory: Bilaterally clear breath sounds. No use of accessory muscles of respiration. No adventitious breath sounds. Cardiovascular: S1, S2 heard. Regular rate and rhythm. Abdomen: Soft, nontender, and nondistended. Bowel sounds positive in all 4 quadrants. Genitourinary: Deferred. Extremities: No cyanosis, no clubbing, no edema. Peripheral pulses palpable. Neurologic: Cranial nerves II through XII grossly intact. The patient is awake, alert, and oriented. Skin: Normal skin turgor. No skin rashes. Labs & Vitals per chart ASSESSMENT & PLAN 54-year-old male with comorbidities including hypertension and diabetes mellitus who presented to the emergency room on 03/22/2019 with febrile illness and was discharged home on oral antibiotics, who was called back on 03/23/2019 as per the instruction of the pathologist for increased blast cells on CBC drawn on 03/22/2019. 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 Inadequate response to 7+3 regimen. To be started on gemtuzumab ozogamicin (Mylotarg). 2. Neutropenic fevers. On antimicrobials as per ID. Reyes cultures remain negative. 3. Diabetes mellitus type 2. Hemoglobin A1c 9.6. Continue the patient on sliding scale insulin along with pre-meal insulin and basal insulin. 4. Hypertension. Continue antihypertensives. 5. Cardiomyopathy. EF of 35-40%. Continue BBs and ACEIs. Cardiology following. 6. Acute CHF exacerbation, systolic dysfunction. Continue diuretic therapy. Switched to oral diuretic therapy. 7. Fluids, electrolytes, and nutrition. Carbohydrate controlled, neutropenic diet. 8. DVT prophylaxis. Bilateral SCDs. 9. Plan. Continue to monitor for any secondary infection. Discharge the patient home once his pancytopenia is improved. Transfusion of blood products will be deferred to oncology. The patient was seen in collaboration with Dr. Avilez. Result Diagram: 04/19/19 0503 04/19/19 0503 Results 24hrs Laboratory Tests Test 04/18/19 12:22 04/18/19 13:10 04/18/19 17:27 04/18/19 21:34 Bedside Glucose 179 161 187 Vancomycin Level 15.0 Trough Test 04/19/19 02:06 04/19/19 05:03 04/19/19 08:25 Bedside Glucose 140 136 White Blood Count 1.4 #L Red Blood Count 3.29 L Hemoglobin 10.0 L Hematocrit 28.7 L Mean Corpuscular 87.2 Volume Mean Corpuscular 30.4 Hemoglobin Mean Corpuscular 34.8 Hemoglobin Concent Red Cell 12.2 Distribution Width Platelet Count 86 #L Mean Platelet Volume 10.1 Immature 5.900 H Granulocytes % Neutrophils % Segmented 3 L Neutrophils % (Manual) Band Neutrophils % 1 (Manual) Lymphocytes % Lymphocytes % 55 H (Manual) Reactive Lymphocytes 17 H % (Manual) Monocytes % Monocytes % (Manual) 18 H Eosinophils % Basophils % Metamyelocytes % 1 H (manual) Myelocytes % 2 H (Manual) Promyelocytes % 2 H (Manual) Blast Cells % 1.0 H (Manual) Nucleated Red Blood 0.0 Cells % Immature 0.080 H Granulocytes # Neutrophils # Neutrophils # 0.0 L (Manual) Band Neutrophils # 0.0 Lymphocytes (Manual) 0.7 L Lymphocytes # Reactive Lymphocytes 0.2 H # Monocytes # Monocytes # (Manual) 0.2 L Eosinophils # Basophils # Metamyelocytes # 0.0 Myelocytes # 0.0 Promyelocytes # 0.0 Nucleated Red Blood Cells # Platelet Estimate DECREASED Giant Platelets 10 H Poikilocytosis 1+ Anisocytosis 1+ Sodium Level 136 Potassium Level 3.6 Chloride Level 101 Carbon Dioxide Level 27 Anion Gap 8 Blood Urea Nitrogen 10 Creatinine 0.50 L Est Glomerular > 60 Filtrat Rate mL/min Glucose Level 131 Calcium Level 8.5 Phosphorus Level 3.7 Magnesium Level 2.0 Exam/Review of Systems Exam Vitals Vital Signs Date Temp Pulse Resp B/P (MAP) Pulse Ox O2 O2 Flow FiO2 Time Delivery Rate 04/19/19 98.2 78 19 168/72 98 07:31 (104) 04/18/19 Room Air 20:17 04/16/19 21 02:50 Intake and Output 04/18/19 04/18/19 04/19/19 1515:00 23:00 07:00 IntakeIntake Total 300 ml 300 ml 800 ml BalanceBalance 300 ml 300 ml 800 ml Results Results 24hrs Laboratory Tests Test 04/18/19 12:22 04/18/19 13:10 04/18/19 17:27 04/18/19 21:34 Bedside Glucose 179 161 187 Vancomycin Level 15.0 Trough Test 04/19/19 02:06 04/19/19 05:03 04/19/19 08:25 Bedside Glucose 140 136 White Blood Count 1.4 #L Red Blood Count 3.29 L Hemoglobin 10.0 L Hematocrit 28.7 L Mean Corpuscular 87.2 Volume Mean Corpuscular 30.4 Hemoglobin Mean Corpuscular 34.8 Hemoglobin Concent Red Cell 12.2 Distribution Width Platelet Count 86 #L Mean Platelet Volume 10.1 Immature 5.900 H Granulocytes % Neutrophils % Segmented 3 L Neutrophils % (Manual) Band Neutrophils % 1 (Manual) Lymphocytes % Lymphocytes % 55 H (Manual) Reactive Lymphocytes 17 H % (Manual) Monocytes % Monocytes % (Manual) 18 H Eosinophils % Basophils % Metamyelocytes % 1 H (manual) Myelocytes % 2 H (Manual) Promyelocytes % 2 H (Manual) Blast Cells % 1.0 H (Manual) Nucleated Red Blood 0.0 Cells % Immature 0.080 H Granulocytes # Neutrophils # Neutrophils # 0.0 L (Manual) Band Neutrophils # 0.0 Lymphocytes (Manual) 0.7 L Lymphocytes # Reactive Lymphocytes 0.2 H # Monocytes # Monocytes # (Manual) 0.2 L Eosinophils # Basophils # Metamyelocytes # 0.0 Myelocytes # 0.0 Promyelocytes # 0.0 Nucleated Red Blood Cells # Platelet Estimate DECREASED Giant Platelets 10 H Poikilocytosis 1+ Anisocytosis 1+ Sodium Level 136 Potassium Level 3.6 Chloride Level 101 Carbon Dioxide Level 27 Anion Gap 8 Blood Urea Nitrogen 10 Creatinine 0.50 L Est Glomerular > 60 Filtrat Rate mL/min Glucose Level 131 Calcium Level 8.5 Phosphorus Level 3.7 Magnesium Level 2.0 Medications Medication Current Medications Insulin Aspart (Novolog Insulin Pen) NOVOLOG *MILD* ALGORI... WITH MEALS BEDTIME SC Last administered on 04/18/19 21:42; Admin Dose 1 UNIT; Start 03/23/19 at 18:00 IV Flush (NS 3 ml) 3 ml PER PROTOCOL IV Last administered on 04/08/19 05:29; Admin Dose 3 ML; Start 03/23/19 at 18:00 Ondansetron HCl (Zofran Inj) 4 mg Q6H PRN IV NAUSEA/VOMITING Last administered on 04/09/19 17:54; Admin Dose 4 MG; Start 03/23/19 at 18:00 Acetaminophen (Tylenol Tab) 650 mg Q6H PRN PO .PAIN 1-3 OR TEMP Last administered on 04/15/19 10:57; Admin Dose 650 MG; Start 03/23/19 at 18:00 Acetaminophen/ Hydrocodone Bitart ([place] (5/325)) 1 tab Q6H PRN PO .MOD PAIN 4- 6 Last administered on 04/10/19 03:07; Admin Dose 1 TAB; Start 03/23/19 at 18:00 Miscellaneous Information 1 ea NOTE XX ; Start 03/23/19 at 18:00 Glucose (Glutose) 15 gm Q15M PRN PO DECREASED GLUCOSE; Start 03/23/19 at 18:00 Glucose (Glutose) 22.5 gm Q15M PRN PO DECREASED GLUCOSE; Start 03/23/19 at 18:00 Dextrose (D50w Syringe) 25 ml Q15M PRN IV DECREASED GLUCOSE; Start 03/23/19 at 18:00 Dextrose (D50w Syringe) 50 ml Q15M PRN IV DECREASED GLUCOSE; Start 03/23/19 at 18:00 Glucagon (Glucagen) 1 mg Q15M PRN IM DECREASED GLUCOSE; Start 03/23/19 at 18:00 Glucose (Glutose) 15 gm Q15M PRN BUCCAL DECREASED GLUCOSE; Start 03/23/19 at 18:00 Hydralazine HCl (Apresoline) 10 mg Q4H PRN IV FOR SBP>170; Start 03/26/19 at 03:30 Albuterol/ Ipratropium (Duoneb) 3 ml Q2H RESP THERAPY PRN HHN sob; Start 03/26/19 at 12:30 Fluconazole (Diflucan) 100 mg DAILY PO Last administered on 04/19/19 08:35; Admin Dose 100 MG; Start 04/02/19 at 15:30 Acyclovir (Zovirax) 400 mg DAILY PO Last administered on 04/19/19 08:34; Admin Dose 400 MG; Start 04/03/19 at 09:00 Al Hydrox/Mg Hydrox/Simethicone (Mag-Al Plus) 30 ml Q6H PRN PO GASTROINTESTINAL UPSET Last administered on 04/14/19 22:43; Admin Dose 30 ML; Start 04/02/19 at 18:30 Carvedilol (Coreg) 12.5 mg BID PO Last administered on 04/19/19 08:35; Admin Dose 12.5 MG; Start 04/02/19 at 21:00 Dexamethasone (Maxidex 0.1% Oph) 2 drop BID BOTH EYES Last administered on 04/19/19 09:04; Admin Dose 2 DROP; Start 04/03/19 at 21:00 Lisinopril (Zestril) 20 mg BID PO Last administered on 04/19/19 08:35; Admin Dose 20 MG; Start 04/05/19 at 21:00 Vancomycin HCl (Vanco Iv Per Pharmacy) VANCOMYCIN PER PHARMACY PER PROTOCOL XX ; Start 04/10/19 at 16:00 Meropenem/Sodium Chloride 50 ml @ 100 mls/hr Q8 IVPB Last administered on 04/19/19 05:44; Admin Dose 100 MLS/HR; Start 04/10/19 at 17:00 Famotidine (Pepcid) 20 mg DAILY PO Last administered on 04/19/19 08:35; Admin Dose 20 MG; Start 04/11/19 at 09:00 Magnesium Oxide (Mag-Ox 400) 400 mg BID PO Last administered on 04/19/19 08:35; Admin Dose 400 MG; Start 04/10/19 at 21:00 Loperamide HCl (Imodium Cap) 2 mg Q8H PRN PO DIARRHEA Last administered on 04/15/19 08:40; Admin Dose 2 MG; Start 04/13/19 at 09:00 Furosemide (Lasix) 20 mg DAILY PO Last administered on 04/19/19 08:35; Admin Dose 20 MG; Start 04/19/19 at 09:00 Insulin Aspart (Novolog Insulin Pen) 6 unit WITH MEALS SC Last administered on 04/19/19 08:39; Admin Dose 6 UNIT; Start 04/14/19 at 07:50 Insulin Glargine (Lantus) 18 units DAILY@2000 SC Last administered on 04/18/19at 21:41; Admin Dose 18 UNITS; Start 04/13/19 at 20:00 Saccharomyces Boulardii (Florastor) 500 mg BID PO Last administered on 04/19/19at 08:34; Admin Dose 500 MG; Start 04/15/19 at 11:00 Vancomycin HCl 1.25 gm/Sodium Chloride 250 ml @ 83.333 mls/ hr Q8H IVPB Last administered on 04/19/19 06:29; Admin Dose 83.333 MLS/HR; Start 04/16/19 at 06:00 Alteplase, Recombinant (Cathflo (Activase)) 2 mg MAY REPEAT X1 PRN CATHETER IF CATHETER REMAINS OCCULUDED; Start 04/16/19 at 15:00 KATIE PACE NP Apr 19, 2019 09:45
--- NOTE | 2019-04-19 10:56 | PN ---
Date/Time of Note Date/Time of Note DATE: 04/19/19 TIME: 10:32 Assessment/Plan VTE Prophylaxis Risk score (from Ns)>0 risk: 6 [place] [facility] [place] Pharmacological prophylaxis: NA/contraindicated Pharm contraindication: low risk/ambulating, thrombocytopenia Lines/Catheters [facility] [place] [facility] line still needed: Yes Urinary Cath still in place: No Assessment/Plan Assessment/Plan Pancytopenia is improving. Platelets are up to 86. WNC 1.4 although ANC is low. I reviewed the smear and only found one blast today. However there were more over the last couple of days. Clinically he feels well. Given that it does not appear that a complete response has occurred, I have order Mylotarg since he had 98% CD33 cells and was FLT3 negative. Hopefully it will be ordered and become available early next week. In the meantime, his marrow should have more time to recover. I also hope to give the Day 1 dose and then let him go home while awaiting the Day 8 dose. Result Diagram: 04/19/19 0503 04/19/19 0503 Results 24hrs Laboratory Tests Test 04/18/19 12:22 04/18/19 13:10 04/18/19 17:27 04/18/19 21:34 Bedside Glucose 179 161 187 Vancomycin Level 15.0 Trough Test 04/19/19 02:06 04/19/19 05:03 04/19/19 08:25 Bedside Glucose 140 136 White Blood Count 1.4 #L Red Blood Count 3.29 L Hemoglobin 10.0 L Hematocrit 28.7 L Mean Corpuscular 87.2 Volume Mean Corpuscular 30.4 Hemoglobin Mean Corpuscular 34.8 Hemoglobin Concent Red Cell 12.2 Distribution Width Platelet Count 86 #L Mean Platelet Volume 10.1 Immature 5.900 H Granulocytes % Neutrophils % Segmented 3 L Neutrophils % (Manual) Band Neutrophils % 1 (Manual) Lymphocytes % Lymphocytes % 55 H (Manual) Reactive Lymphocytes 17 H % (Manual) Monocytes % Monocytes % (Manual) 18 H Eosinophils % Basophils % Metamyelocytes % 1 H (manual) Myelocytes % 2 H (Manual) Promyelocytes % 2 H (Manual) Blast Cells % 1.0 H (Manual) Nucleated Red Blood 0.0 Cells % Immature 0.080 H Granulocytes # Neutrophils # Neutrophils # 0.0 L (Manual) Band Neutrophils # 0.0 Lymphocytes (Manual) 0.7 L Lymphocytes # Reactive Lymphocytes 0.2 H # Monocytes # Monocytes # (Manual) 0.2 L Eosinophils # Basophils # Metamyelocytes # 0.0 Myelocytes # 0.0 Promyelocytes # 0.0 Nucleated Red Blood Cells # Pathologist Y Review (Hematology) Platelet Estimate DECREASED Giant Platelets 10 H Poikilocytosis 1+ Anisocytosis 1+ Path Consult Signing Pathologist Sodium Level 136 Potassium Level 3.6 Chloride Level 101 Carbon Dioxide Level 27 Anion Gap 8 Blood Urea Nitrogen 10 Creatinine 0.50 L Est Glomerular > 60 Filtrat Rate mL/min Glucose Level 131 Calcium Level 8.5 Phosphorus Level 3.7 Magnesium Level 2.0 Subjective 24 Hr Interval Summary Free Text/Dictation Pt is stable and alert. He has been walking in the halls. Exam/Review of Systems Exam Vitals Vital Signs Date Temp Pulse Resp B/P (MAP) Pulse Ox O2 O2 Flow FiO2 Time Delivery Rate 04/19/19 98.2 78 19 168/72 98 07:31 (104) 04/18/19 Room Air 20:17 04/16/19 21 02:50 Intake and Output 04/18/19 04/18/19 04/19/19 1515:00 23:00 07:00 IntakeIntake Total 300 ml 300 ml 800 ml BalanceBalance 300 ml 300 ml 800 ml Constitutional: alert Head: normocephalic Eyes: other (conjunctival pallor) ENMT: nl external ears & nose Neck: supple Respiratory: clear to auscultation Cardiovascular: regular rate and rhythm Gastrointestinal: soft, non-tender Musculoskeletal: nl gait and stance Extremities: edema (none) Results Results 24hrs Laboratory Tests Test 04/18/19 12:22 04/18/19 13:10 04/18/19 17:27 04/18/19 21:34 Bedside Glucose 179 161 187 Vancomycin Level 15.0 Trough Test 04/19/19 02:06 04/19/19 05:03 04/19/19 08:25 Bedside Glucose 140 136 White Blood Count 1.4 #L Red Blood Count 3.29 L Hemoglobin 10.0 L Hematocrit 28.7 L Mean Corpuscular 87.2 Volume Mean Corpuscular 30.4 Hemoglobin Mean Corpuscular 34.8 Hemoglobin Concent Red Cell 12.2 Distribution Width Platelet Count 86 #L Mean Platelet Volume 10.1 Immature 5.900 H Granulocytes % Neutrophils % Segmented 3 L Neutrophils % (Manual) Band Neutrophils % 1 (Manual) Lymphocytes % Lymphocytes % 55 H (Manual) Reactive Lymphocytes 17 H % (Manual) Monocytes % Monocytes % (Manual) 18 H Eosinophils % Basophils % Metamyelocytes % 1 H (manual) Myelocytes % 2 H (Manual) Promyelocytes % 2 H (Manual) Blast Cells % 1.0 H (Manual) Nucleated Red Blood 0.0 Cells % Immature 0.080 H Granulocytes # Neutrophils # Neutrophils # 0.0 L (Manual) Band Neutrophils # 0.0 Lymphocytes (Manual) 0.7 L Lymphocytes # Reactive Lymphocytes 0.2 H # Monocytes # Monocytes # (Manual) 0.2 L Eosinophils # Basophils # Metamyelocytes # 0.0 Myelocytes # 0.0 Promyelocytes # 0.0 Nucleated Red Blood Cells # Pathologist Y Review (Hematology) Platelet Estimate DECREASED Giant Platelets 10 H Poikilocytosis 1+ Anisocytosis 1+ Path Consult Signing Pathologist Sodium Level 136 Potassium Level 3.6 Chloride Level 101 Carbon Dioxide Level 27 Anion Gap 8 Blood Urea Nitrogen 10 Creatinine 0.50 L Est Glomerular > 60 Filtrat Rate mL/min Glucose Level 131 Calcium Level 8.5 Phosphorus Level 3.7 Magnesium Level 2.0 Medications Medication Current Medications Insulin Aspart (Novolog Insulin Pen) NOVOLOG *MILD* ALGORI... WITH MEALS BEDTIME SC Last administered on 04/18/19 21:42; Admin Dose 1 UNIT; Start 03/23/19 at 18:00 IV Flush (NS 3 ml) 3 ml PER PROTOCOL IV Last administered on 04/08/19 05:29; Admin Dose 3 ML; Start 03/23/19 at 18:00 Ondansetron HCl (Zofran Inj) 4 mg Q6H PRN IV NAUSEA/VOMITING Last administered on 04/09/19 17:54; Admin Dose 4 MG; Start 03/23/19 at 18:00 Acetaminophen (Tylenol Tab) 650 mg Q6H PRN PO .PAIN 1-3 OR TEMP Last administered on 04/15/19 10:57; Admin Dose 650 MG; Start 03/23/19 at 18:00 Acetaminophen/ Hydrocodone Bitart ([place] (5/325)) 1 tab Q6H PRN PO .MOD PAIN 4- 6 Last administered on 04/10/19 03:07; Admin Dose 1 TAB; Start 03/23/19 at 18:00 Miscellaneous Information 1 ea NOTE XX ; Start 03/23/19 at 18:00 Glucose (Glutose) 15 gm Q15M PRN PO DECREASED GLUCOSE; Start 03/23/19 at 18:00 Glucose (Glutose) 22.5 gm Q15M PRN PO DECREASED GLUCOSE; Start 03/23/19 at 18:00 Dextrose (D50w Syringe) 25 ml Q15M PRN IV DECREASED GLUCOSE; Start 03/23/19 at 18:00 Dextrose (D50w Syringe) 50 ml Q15M PRN IV DECREASED GLUCOSE; Start 03/23/19 at 18:00 Glucagon (Glucagen) 1 mg Q15M PRN IM DECREASED GLUCOSE; Start 03/23/19 at 18:00 Glucose (Glutose) 15 gm Q15M PRN BUCCAL DECREASED GLUCOSE; Start 03/23/19 at 18:00 Hydralazine HCl (Apresoline) 10 mg Q4H PRN IV FOR SBP>170; Start 03/26/19 at 03:30 Albuterol/ Ipratropium (Duoneb) 3 ml Q2H RESP THERAPY PRN HHN sob; Start 03/26/19 at 12:30 Fluconazole (Diflucan) 100 mg DAILY PO Last administered on 04/19/19 08:35; Admin Dose 100 MG; Start 04/02/19 at 15:30 Acyclovir (Zovirax) 400 mg DAILY PO Last administered on 04/19/19 08:34; Admin Dose 400 MG; Start 04/03/19 at 09:00 Al Hydrox/Mg Hydrox/Simethicone (Mag-Al Plus) 30 ml Q6H PRN PO GASTROINTESTINAL UPSET Last administered on 04/14/19 22:43; Admin Dose 30 ML; Start 04/02/19 at 18:30 Carvedilol (Coreg) 12.5 mg BID PO Last administered on 04/19/19 08:35; Admin Dose 12.5 MG; Start 04/02/19 at 21:00 Dexamethasone (Maxidex 0.1% Oph) 2 drop BID BOTH EYES Last administered on 04/19/19 09:04; Admin Dose 2 DROP; Start 04/03/19 at 21:00 Lisinopril (Zestril) 20 mg BID PO Last administered on 04/19/19 08:35; Admin Dose 20 MG; Start 04/05/19 at 21:00 Vancomycin HCl (Vanco Iv Per Pharmacy) VANCOMYCIN PER PHARMACY PER PROTOCOL XX ; Start 04/10/19 at 16:00 Meropenem/Sodium Chloride 50 ml @ 100 mls/hr Q8 IVPB Last administered on 04/19/19 05:44; Admin Dose 100 MLS/HR; Start 04/10/19 at 17:00 Famotidine (Pepcid) 20 mg DAILY PO Last administered on 04/19/19 08:35; Admin Dose 20 MG; Start 04/11/19 at 09:00 Magnesium Oxide (Mag-Ox 400) 400 mg BID PO Last administered on 04/19/19 08:35; Admin Dose 400 MG; Start 04/10/19 at 21:00 Loperamide HCl (Imodium Cap) 2 mg Q8H PRN PO DIARRHEA Last administered on 04/15/19 08:40; Admin Dose 2 MG; Start 04/13/19 at 09:00 Furosemide (Lasix) 20 mg DAILY PO Last administered on 04/19/19 08:35; Admin Dose 20 MG; Start 04/19/19 at 09:00 Insulin Aspart (Novolog Insulin Pen) 6 unit WITH MEALS SC Last administered on 04/19/19 08:39; Admin Dose 6 UNIT; Start 04/14/19 at 07:50 Insulin Glargine (Lantus) 18 units DAILY@2000 SC Last administered on 04/18/19 21:41; Admin Dose 18 UNITS; Start 04/13/19 at 20:00 Saccharomyces Boulardii (Florastor) 500 mg BID PO Last administered on 04/08 08:34; Admin Dose 500 MG; Start 04/15/19 at 11:00 Vancomycin HCl 1.25 gm/Sodium Chloride 250 ml @ 83.333 mls/ hr Q8H IVPB Last administered on 04/19/19 06:29; Admin Dose 83.333 MLS/HR; Start 04/16/19 at 06:00 Alteplase, Recombinant (Cathflo (Activase)) 2 mg MAY REPEAT X1 PRN CATHETER IF CATHETER REMAINS OCCULUDED; Start 04/16/19 at 15:00 BETTE MALDONADO MD Apr 19, 2019 10:43
--- NOTE | 2019-04-19 12:27 | CONS ---
Assessment/Plan Assessment/Plan Hospital Course (Demo Recall) Awake, feels good, no fevers Stool for C. difficile negative Indwelling's: Right IJ Port-A-Cath Blood cultures and urine culture negative Antimicrobials: Vanco, Merrem, fluconazole, acyclovir Physical examination: Well-developed middle-aged man who is alert in no distress head atraumatic normocephalic sclera nonicteric vehicle mucosa pink neck is supple chest rise symmetrical breath sounds clear Heart S1-S2 abdomen soft bowel sounds present extremities without cyanosis edema Assessment: 1. S/p neutropenic fevers 2. AML, newly diagnosed 3. Diabetes 4. Hypertension 5. Pancytopenia Plan: Remains stable, continue present care per oncology Consultation Date/Type/Reason Admit Date/Time Mar 23, 2019 at 16:10 Initial Consult Date 03/24/19 Type of Consult id Requesting Provider: KATIE PACE NP Date/Time of Note DATE: 04/19/19 TIME: 12:26 Exam/Review of Systems Exam Vitals Vital Signs Date Temp Pulse Resp B/P (MAP) Pulse Ox O2 O2 Flow FiO2 Time Delivery Rate 04/19/19 98.2 78 19 168/72 98 07:31 (104) 04/18/19 Room Air 20:17 04/16/19 21 02:50 Intake and Output 04/18/19 04/18/19 04/19/19 1515:00 23:00 07:00 IntakeIntake Total 300 ml 300 ml 800 ml BalanceBalance 300 ml 300 ml 800 ml Results Result Diagram: 04/19/19 0503 04/19/19 0503 Results 24hrs Laboratory Tests Test 04/18/19 13:10 04/18/19 17:27 04/18/19 21:34 04/19/19 02:06 Vancomycin Level 15.0 Trough Bedside Glucose 161 187 140 Test 04/19/19 05:03 04/19/19 08:25 White Blood Count 1.4 #L Red Blood Count 3.29 L Hemoglobin 10.0 L Hematocrit 28.7 L Mean Corpuscular 87.2 Volume Mean Corpuscular 30.4 Hemoglobin Mean Corpuscular 34.8 Hemoglobin Concent Red Cell 12.2 Distribution Width Platelet Count 86 #L Mean Platelet Volume 10.1 Immature 5.900 H Granulocytes % Neutrophils % Segmented 3 L Neutrophils % (Manual) Band Neutrophils % 1 (Manual) Lymphocytes % Lymphocytes % 55 H (Manual) Reactive Lymphocytes 17 H % (Manual) Monocytes % Monocytes % (Manual) 18 H Eosinophils % Basophils % Metamyelocytes % 1 H (manual) Myelocytes % 2 H (Manual) Promyelocytes % 2 H (Manual) Blast Cells % 1.0 H (Manual) Nucleated Red Blood 0.0 Cells % Immature 0.080 H Granulocytes # Neutrophils # Neutrophils # 0.0 L (Manual) Band Neutrophils # 0.0 Lymphocytes (Manual) 0.7 L Lymphocytes # Reactive Lymphocytes 0.2 H # Monocytes # Monocytes # (Manual) 0.2 L Eosinophils # Basophils # Metamyelocytes # 0.0 Myelocytes # 0.0 Promyelocytes # 0.0 Nucleated Red Blood Cells # Pathologist Y Review (Hematology) Platelet Estimate DECREASED Giant Platelets 10 H Poikilocytosis 1+ Anisocytosis 1+ Path Consult Signing Pathologist Sodium Level 136 Potassium Level 3.6 Chloride Level 101 Carbon Dioxide Level 27 Anion Gap 8 Blood Urea Nitrogen 10 Creatinine 0.50 L Est Glomerular > 60 Filtrat Rate mL/min Glucose Level 131 Calcium Level 8.5 Phosphorus Level 3.7 Magnesium Level 2.0 Bedside Glucose 136 Medications Medication Current Medications Insulin Aspart (Novolog Insulin Pen) NOVOLOG *MILD* ALGORI... WITH MEALS BEDTIME SC Last administered on 04/18/19 21:42; Admin Dose 1 UNIT; Start 03/23/19 at 18:00 IV Flush (NS 3 ml) 3 ml PER PROTOCOL IV Last administered on 04/08/19 05:29; Admin Dose 3 ML; Start 03/23/19 at 18:00 Ondansetron HCl (Zofran Inj) 4 mg Q6H PRN IV NAUSEA/VOMITING Last administered on 04/09/19 17:54; Admin Dose 4 MG; Start 03/23/19 at 18:00 Acetaminophen (Tylenol Tab) 650 mg Q6H PRN PO .PAIN 1-3 OR TEMP Last administered on 04/15/19 10:57; Admin Dose 650 MG; Start 03/23/19 at 18:00 Acetaminophen/ Hydrocodone Bitart ([place] (5/325)) 1 tab Q6H PRN PO .MOD PAIN 4- 6 Last administered on 04/10/19 03:07; Admin Dose 1 TAB; Start 03/23/19 at 18:00 Miscellaneous Information 1 ea NOTE XX ; Start 03/23/19 at 18:00 Glucose (Glutose) 15 gm Q15M PRN PO DECREASED GLUCOSE; Start 03/23/19 at 18:00 Glucose (Glutose) 22.5 gm Q15M PRN PO DECREASED GLUCOSE; Start 03/23/19 at 18:00 Dextrose (D50w Syringe) 25 ml Q15M PRN IV DECREASED GLUCOSE; Start 03/23/19 at 18:00 Dextrose (D50w Syringe) 50 ml Q15M PRN IV DECREASED GLUCOSE; Start 03/23/19 at 18:00 Glucagon (Glucagen) 1 mg Q15M PRN IM DECREASED GLUCOSE; Start 03/23/19 at 18:00 Glucose (Glutose) 15 gm Q15M PRN BUCCAL DECREASED GLUCOSE; Start 03/23/19 at 18:00 Hydralazine HCl (Apresoline) 10 mg Q4H PRN IV FOR SBP>170; Start 03/26/19 at 03:30 Albuterol/ Ipratropium (Duoneb) 3 ml Q2H RESP THERAPY PRN HHN sob; Start 03/26/19 at 12:30 Fluconazole (Diflucan) 100 mg DAILY PO Last administered on 04/19/19 08:35; Admin Dose 100 MG; Start 04/02/19 at 15:30 Acyclovir (Zovirax) 400 mg DAILY PO Last administered on 04/19/19 08:34; Admin Dose 400 MG; Start 04/03/19 at 09:00 Al Hydrox/Mg Hydrox/Simethicone (Mag-Al Plus) 30 ml Q6H PRN PO GASTROINTESTINAL UPSET Last administered on 04/14/19 22:43; Admin Dose 30 ML; Start 04/02/19 at 18:30 Carvedilol (Coreg) 12.5 mg BID PO Last administered on 04/19/19 08:35; Admin Dose 12.5 MG; Start 04/02/19 at 21:00 Dexamethasone (Maxidex 0.1% Oph) 2 drop BID BOTH EYES Last administered on 04/19/19 09:04; Admin Dose 2 DROP; Start 04/03/19 at 21:00 Lisinopril (Zestril) 20 mg BID PO Last administered on 04/19/19 08:35; Admin Dose 20 MG; Start 04/05/19 at 21:00 Vancomycin HCl (Vanco Iv Per Pharmacy) VANCOMYCIN PER PHARMACY PER PROTOCOL XX ; Start 04/10/19 at 16:00 Meropenem/Sodium Chloride 50 ml @ 100 mls/hr Q8 IVPB Last administered on 04/19/19 05:44; Admin Dose 100 MLS/HR; Start 04/10/19 at 17:00 Famotidine (Pepcid) 20 mg DAILY PO Last administered on 04/19/19 08:35; Admin Dose 20 MG; Start 04/11/19 at 09:00 Magnesium Oxide (Mag-Ox 400) 400 mg BID PO Last administered on 04/19/19 08:35; Admin Dose 400 MG; Start 04/10/19 at 21:00 Loperamide HCl (Imodium Cap) 2 mg Q8H PRN PO DIARRHEA Last administered on 04/15/19 08:40; Admin Dose 2 MG; Start 04/13/19 at 09:00 Furosemide (Lasix) 20 mg DAILY PO Last administered on 04/19/19 08:35; Admin Dose 20 MG; Start 04/19/19 at 09:00 Insulin Aspart (Novolog Insulin Pen) 6 unit WITH MEALS SC Last administered on 04/19/19 08:39; Admin Dose 6 UNIT; Start 04/14/19 at 07:50 Insulin Glargine (Lantus) 18 units DAILY@2000 SC Last administered on 04/18/19 21:41; Admin Dose 18 UNITS; Start 04/13/19 at 20:00 Saccharomyces Boulardii (Florastor) 500 mg BID PO Last administered on 04/19/19 08:34; Admin Dose 500 MG; Start 04/15/19 at 11:00 Vancomycin HCl 1.25 gm/Sodium Chloride 250 ml @ 83.333 mls/ hr Q8H IVPB Last administered on 04/19/19 06:29; Admin Dose 83.333 MLS/HR; Start 04/16/19 at 06:00 Alteplase, Recombinant (Cathflo (Activase)) 2 mg MAY REPEAT X1 PRN CATHETER IF CATHETER REMAINS OCCULUDED; Start 04/16/19 at 15:00 JEANNIE NICHOLSON NP Apr 19, 2019 12:27
[2019-04-19 14:20] VITALS: BP 141/62; PULSE 82; RESP 19
--- NOTE | 2019-04-19 14:42 | CONS ---
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 Diabetes Hypertension Continue maintenance diuretics and titrate as needed Blood pressure trend on the higher side, would monitor trend and decide if further med adjustments need to be made. Consultation Date/Type/Reason Admit Date/Time Mar 23, 2019 at 16:10 Initial Consult Date 03/24/19 Type of Consult Cardiology Requesting Provider: KATIE PACE NP Date/Time of Note DATE: 04/19/19 TIME: 14:41 24 HR Interval Summary Free Text/Dictation No shortness of breath, chest pain or palpitations Exam/Review of Systems Vital Signs Vitals Vital Signs Date Temp Pulse Resp B/P (MAP) Pulse Ox O2 O2 Flow FiO2 Time Delivery Rate 04/19/19 98.2 78 19 168/72 98 07:31 (104) 04/18/19 Room Air 20:17 04/16/19 21 02:50 Intake and Output 04/18/19 04/18/19 04/19/19 1515:00 23:00 07:00 IntakeIntake Total 300 ml 300 ml 800 ml BalanceBalance 300 ml 300 ml 800 ml Exam Constitutional: alert, oriented (No apparent distress) Head: normocephalic Respiratory: clear to auscultation, normal air movement Cardiovascular: regular rate and rhythm (S1-S2 heard) Gastrointestinal: soft, non-tender, bowel sounds Extremities: other (No significant edema) Labs Result Diagram: 04/19/19 0503 04/19/19 0503 Results 24hrs Laboratory Tests Test 04/18/19 17:27 04/18/19 21:34 04/19/19 02:06 04/19/19 05:03 Bedside Glucose 161 187 140 White Blood Count 1.4 #L Red Blood Count 3.29 L Hemoglobin 10.0 L Hematocrit 28.7 L Mean Corpuscular 87.2 Volume Mean Corpuscular 30.4 Hemoglobin Mean Corpuscular 34.8 Hemoglobin Concent Red Cell 12.2 Distribution Width Platelet Count 86 #L Mean Platelet Volume 10.1 Immature 5.900 H Granulocytes % Neutrophils % Segmented 3 L Neutrophils % (Manual) Band Neutrophils % 1 (Manual) Lymphocytes % Lymphocytes % 55 H (Manual) Reactive Lymphocytes 17 H % (Manual) Monocytes % Monocytes % (Manual) 18 H Eosinophils % Basophils % Metamyelocytes % 1 H (manual) Myelocytes % 2 H (Manual) Promyelocytes % 2 H (Manual) Blast Cells % 1.0 H (Manual) Nucleated Red Blood 0.0 Cells % Immature 0.080 H Granulocytes # Neutrophils # Neutrophils # 0.0 L (Manual) Band Neutrophils # 0.0 Lymphocytes (Manual) 0.7 L Lymphocytes # Reactive Lymphocytes 0.2 H # Monocytes # Monocytes # (Manual) 0.2 L Eosinophils # Basophils # Metamyelocytes # 0.0 Myelocytes # 0.0 Promyelocytes # 0.0 Nucleated Red Blood Cells # Pathologist Y Review (Hematology) Platelet Estimate DECREASED Giant Platelets 10 H Poikilocytosis 1+ Anisocytosis 1+ Path Consult Signing Pathologist Sodium Level 136 Potassium Level 3.6 Chloride Level 101 Carbon Dioxide Level 27 Anion Gap 8 Blood Urea Nitrogen 10 Creatinine 0.50 L Est Glomerular > 60 Filtrat Rate mL/min Glucose Level 131 Calcium Level 8.5 Phosphorus Level 3.7 Magnesium Level 2.0 Test 04/19/19 08:25 04/19/19 12:39 Bedside Glucose 136 181 Medications Medications Current Medications Insulin Aspart (Novolog Insulin Pen) NOVOLOG *MILD* ALGORI... WITH MEALS B EDTIME SC Last administered on 04/19/19 12:42; Admin Dose 2 UNIT; Start 03/23/19 at 18:00 IV Flush (NS 3 ml) 3 ml PER PROTOCOL IV Last administered on 04/08/19 05:29; Admin Dose 3 ML; Start 03/23/19 at 18:00 Ondansetron HCl (Zofran Inj) 4 mg Q6H PRN IV NAUSEA/VOMITING Last administered on 04/09/19 17:54; Admin Dose 4 MG; Start 03/23/19 at 18:00 Acetaminophen (Tylenol Tab) 650 mg Q6H PRN PO .PAIN 1-3 OR TEMP Last administered on 04/15/19 10:57; Admin Dose 650 MG; Start 03/23/19 at 18:00 Acetaminophen/ Hydrocodone Bitart ([place] (5/325)) 1 tab Q6H PRN PO .MOD PAIN 4- 6 Last administered on 04/10/19 03:07; Admin Dose 1 TAB; Start 03/23/19 at 18:00 Miscellaneous Information 1 ea NOTE XX ; Start 03/23/19 at 18:00 Glucose (Glutose) 15 gm Q15M PRN PO DECREASED GLUCOSE; Start 03/23/19 at 18:00 Glucose (Glutose) 22.5 gm Q15M PRN PO DECREASED GLUCOSE; Start 03/23/19 at 18:00 Dextrose (D50w Syringe) 25 ml Q15M PRN IV DECREASED GLUCOSE; Start 03/23/19 at 18:00 Dextrose (D50w Syringe) 50 ml Q15M PRN IV DECREASED GLUCOSE; Start 03/23/19 at 18:00 Glucagon (Glucagen) 1 mg Q15M PRN IM DECREASED GLUCOSE; Start 03/23/19 at 18:00 Glucose (Glutose) 15 gm Q15M PRN BUCCAL DECREASED GLUCOSE; Start 03/23/19 at 18:00 Hydralazine HCl (Apresoline) 10 mg Q4H PRN IV FOR SBP>170; Start 03/26/19 at 0 3:30 Albuterol/ Ipratropium (Duoneb) 3 ml Q2H RESP THERAPY PRN HHN sob; Start 03/26/19 at 12:30 Fluconazole (Diflucan) 100 mg DAILY PO Last administered on 04/19/19 08:35; Admin Dose 100 MG; Start 04/02/19 at 15:30 Acyclovir (Zovirax) 400 mg DAILY PO Last administered on 04/19/19 08:34; Admin Dose 400 MG; Start 04/03/19 at 09:00 Al Hydrox/Mg Hydrox/Simethicone (Mag-Al Plus) 30 ml Q6H PRN PO GASTROINTESTINAL UPSET Last administered on 04/14/19 22:43; Admin Dose 30 ML; Start 04/02/19 at 18:30 Carvedilol (Coreg) 12.5 mg BID PO Last administered on 04/19/19 08:35; Admin Dose 12.5 MG; Start 04/02/19 at 21:00 Dexamethasone (Maxidex 0.1% Oph) 2 drop BID BOTH EYES Last administered on 04/19/19 09:04; Admin Dose 2 DROP; Start 04/03/19 at 21:00 Lisinopril (Zestril) 20 mg BID PO Last administered on 04/19/19 08:35; Admin Dose 20 MG; Start 04/05/19 at 21:00 Vancomycin HCl (Vanco Iv Per Pharmacy) VANCOMYCIN PER PHARMACY PER PROTOCOL XX ; Start 04/10/19 at 16:00 Meropenem/Sodium Chloride 50 ml @ 100 mls/hr Q8 IVPB Last administered on 04/19/19 13:18; Admin Dose 100 MLS/HR; Start 04/10/19 at 17:00 Famotidine (Pepcid) 20 mg DAILY PO Last administered on 04/19/19 08:35; Admin Dose 20 MG; Start 04/11/19 at 09:00 Magnesium Oxide (Mag-Ox 400) 400 mg BID PO Last administered on 04/19/19 08:35; Admin Dose 400 MG; Start 04/10/19 at 21:00 Loperamide HCl (Imodium Cap) 2 mg Q8H PRN PO DIARRHEA Last administered on 04/15/19 08:40; Admin Dose 2 MG; Start 04/13/19 at 09:00 Furosemide (Lasix) 20 mg DAILY PO Last administered on 04/19/19 08:35; Admin Dose 20 MG; Start 04/19/19 at 09:00 Insulin Aspart (Novolog Insulin Pen) 6 unit WITH MEALS SC Last administered on 04/19/19 12:43; Admin Dose 6 UNIT; Start 04/14/19 at 07:50 Insulin Glargine (Lantus) 18 units DAILY@2000 SC Last administered on 04/18/19 21:41; Admin Dose 18 UNITS; Start 04/13/19 at 20:00 Saccharomyces Boulardii (Florastor) 500 mg BID PO Last administered on 04/19/19 08:34; Admin Dose 500 MG; Start 04/15/19 at 11:00 Vancomycin HCl 1.25 gm/Sodium Chloride 250 ml @ 83.333 mls/ hr Q8H IVPB Last administered on 04/19/19 14:11; Admin Dose 83.333 MLS/HR; Start 04/16/19 at 06:00 Alteplase, Recombinant (Cathflo (Activase)) 2 mg MAY REPEAT X1 PRN CATHETER IF CATHETER REMAINS OCCULUDED; Start 04/16/19 at 15:00 Jun Ayala DO Apr 19, 2019 14:42
[2019-04-19 20:33] VITALS: BP 165/90; PULSE 77; RESP 20
[2019-04-19] MEDS: INSULIN GLARGINE [LANTus] (100 UNITS/ML) SYG SC SCH (21:08)
[2019-04-20] MEDS: MEROPENEM 500MG/50 ML (PMX) 50 ML IVPB SCH ×3 (05:48→20:31)
[2019-04-20] MEDS: VANCOMYCIN HCL 1.25 GM in SOD CHLORIDE 0.9% 250 ML IVPB SCH ×3 (06:24→21:22)
--- NOTE | 2019-04-20 07:43 | PN ---
Date/Time of Note Date/Time of Note DATE: 04/20/19 TIME: 07:42 Assessment/Plan VTE Prophylaxis Risk score (from Ns)>0 risk: 5 SCD applied (from Ns): Yes Pharmacological prophylaxis: NA/contraindicated Pharm contraindication: low risk/ambulating Lines/C[facility]ters [facility] [place] [facility] still needed: Yes Urinary Cath still in place: No Assessment/Plan Hospital Course SUBJECTIVE: Denies any pain or dyspnea. OBJECTIVE: Physical Exam General: Adequately build 54 year-old male lying in bed in no apparent distress. HEENT: Normocephalic, atraumatic. Eyes: Anicteric sclerae, conjunctivae clear. ENT: Nasal septum midline, oral mucosa moist. Neck supple, no JVD noticed. Respiratory: Bilaterally clear breath sounds. No use of accessory muscles of respiration. No adventitious breath sounds. Cardiovascular: S1, S2 heard. Regular rate and rhythm. Abdomen: Soft, nontender, and nondistended. Bowel sounds positive in all 4 quadrants. Genitourinary: Deferred. Extremities: No cyanosis, no clubbing, no edema. Peripheral pulses palpable. Neurologic: Cranial nerves II through XII grossly intact. The patient is awake, alert, and oriented. Skin: Normal skin turgor. No skin rashes. Labs & Vitals per chart ASSESSMENT & PLAN 54-year-old male with comorbidities including hypertension and diabetes mellitus who presented to the emergency room on 03/22/2019 with febrile illness and was discharged home on oral antibiotics, who was called back on 03/23/2019 as per the instruction of the pathologist for increased blast cells on CBC drawn on 03/22/2019. 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 Inadequate response to 7+3 regimen. To be started on gemtuzumab ozogamicin (Mylotarg). 2. Neutropenic fevers. On antimicrobials as per ID. Reyes cultures remain negative. 3. Diabetes mellitus type 2. Hemoglobin A1c 9.6. Continue the patient on sliding scale insulin along with pre-meal insulin and basal insulin. 4. Hypertension. Continue antihypertensives. 5. Cardiomyopathy. EF of 35-40%. Continue BBs and ACEIs. Cardiology following. 6. Acute CHF exacerbation, systolic dysfunction. Continue diuretic therapy. Switched to oral diuretic therapy. 7. Fluids, electrolytes, and nutrition. Carbohydrate controlled, neutropenic diet. 8. DVT prophylaxis. Bilateral SCDs. 9. Plan. Continue to monitor for any secondary infection. Discharge the patient home once his pancytopenia is improved. Transfusion of blood products will be deferred to oncology. The patient was seen in collaboration with Dr. Avilez. Result Diagram: 04/20/19 0455 04/20/19 0455 Results 24hrs Laboratory Tests Test 04/19/19 08:25 04/19/19 12:39 04/19/19 20:56 04/20/19 01:38 Bedside Glucose 136 181 251 H 191 Test 04/20/19 04:55 White Blood Count 2.4 #L Red Blood Count 3.23 L Hemoglobin 10.0 L Hematocrit 28.1 L Mean Corpuscular 87.0 Volume Mean Corpuscular 31.0 Hemoglobin Mean Corpuscular 35.6 Hemoglobin Concent Red Cell 12.0 Distribution Width Platelet Count 180 # Mean Platelet Volume 9.4 Immature 10.300 H Granulocytes % Neutrophils % Lymphocytes % Monocytes % Eosinophils % Basophils % Nucleated Red Blood 0.0 Cells % Immature 0.250 H Granulocytes # Neutrophils # Lymphocytes # Monocytes # Eosinophils # Basophils # Nucleated Red Blood Cells # Sodium Level 137 Potassium Level 3.8 Chloride Level 100 Carbon Dioxide Level 28 Anion Gap 9 Blood Urea Nitrogen 10 Creatinine 0.48 L Est Glomerular > 60 Filtrat Rate mL/min Glucose Level 151 Calcium Level 8.9 Phosphorus Level 4.7 Magnesium Level 2.0 Exam/Review of Systems Exam Vitals Vital Signs Date Temp Pulse Resp B/P (MAP) Pulse Ox O2 O2 Flow FiO2 Time Delivery Rate 04/19/19 98.1 77 20 165/90 95 20:33 (115) 04/18/19 Room Air 20:17 Intake and Output 04/19/19 04/19/19 04/20/19 1515:00 23:00 07:00 IntakeIntake Total 680 ml 490 ml 1100 ml BalanceBalance 680 ml 490 ml 1100 ml Results Results 24hrs Laboratory Tests Test 04/19/19 08:25 04/19/19 12:39 04/19/19 20:56 04/20/19 01:38 Bedside Glucose 136 181 251 H 191 Test 04/20/19 04:55 White Blood Count 2.4 #L Red Blood Count 3.23 L Hemoglobin 10.0 L Hematocrit 28.1 L Mean Corpuscular 87.0 Volume Mean Corpuscular 31.0 Hemoglobin Mean Corpuscular 35.6 Hemoglobin Concent Red Cell 12.0 Distribution Width Platelet Count 180 # Mean Platelet Volume 9.4 Immature 10.300 H Granulocytes % Neutrophils % Lymphocytes % Monocytes % Eosinophils % Basophils % Nucleated Red Blood 0.0 Cells % Immature 0.250 H Granulocytes # Neutrophils # Lymphocytes # Monocytes # Eosinophils # Basophils # Nucleated Red Blood Cells # Sodium Level 137 Potassium Level 3.8 Chloride Level 100 Carbon Dioxide Level 28 Anion Gap 9 Blood Urea Nitrogen 10 Creatinine 0.48 L Est Glomerular > 60 Filtrat Rate mL/min Glucose Level 151 Calcium Level 8.9 Phosphorus Level 4.7 Magnesium Level 2.0 Medications Medication Current Medications Insulin Aspart (Novolog Insulin Pen) NOVOLOG *MILD* ALGORI... WITH MEALS BEDTIME SC Last administered on 04/19/19 21:08; Admin Dose 2 UNIT; Start 03/23/19 at 18:00 IV Flush (NS 3 ml) 3 ml PER PROTOCOL IV Last administered on 04/08/19 05:29; Admin Dose 3 ML; Start 03/23/19 at 18:00 Ondansetron HCl (Zofran Inj) 4 mg Q6H PRN IV NAUSEA/VOMITING Last administered on 04/09/19 17:54; Admin Dose 4 MG; Start 03/23/19 at 18:00 Acetaminophen (Tylenol Tab) 650 mg Q6H PRN PO .PAIN 1-3 OR TEMP Last administered on 04/15/19 10:57; Admin Dose 650 MG; Start 03/23/19 at 18:00 Acetaminophen/ Hydrocodone Bitart ([place] (5/325)) 1 tab Q6H PRN PO .MOD PAIN 4- 6 Last administered on 04/10/19 03:07; Admin Dose 1 TAB; Start 03/23/19 at 18:00 Miscellaneous Information 1 ea NOTE XX ; Start 03/23/19 at 18:00 Glucose (Glutose) 15 gm Q15M PRN PO DECREASED GLUCOSE; Start 03/23/19 at 18:00 Glucose (Glutose) 22.5 gm Q15M PRN PO DECREASED GLUCOSE; Start 03/23/19 at 18:00 Dextrose (D50w Syringe) 25 ml Q15M PRN IV DECREASED GLUCOSE; Start 03/23/19 at 18:00 Dextrose (D50w Syringe) 50 ml Q15M PRN IV DECREASED GLUCOSE; Start 03/23/19 at 18:00 Glucagon (Glucagen) 1 mg Q15M PRN IM DECREASED GLUCOSE; Start 03/23/19 at 18:00 Glucose (Glutose) 15 gm Q15M PRN BUCCAL DECREASED GLUCOSE; Start 03/23/19 at 18:00 Hydralazine HCl (Apresoline) 10 mg Q4H PRN IV FOR SBP>170; Start 03/26/19 at 03:30 Albuterol/ Ipratropium (Duoneb) 3 ml Q2H RESP THERAPY PRN HHN sob; Start 03/26/19 at 12:30 Fluconazole (Diflucan) 100 mg DAILY PO Last administered on 04/19/19 08:35; Admin Dose 100 MG; Start 04/02/19 at 15:30 Acyclovir (Zovirax) 400 mg DAILY PO Last administered on 04/19/19 08:34; Admin Dose 400 MG; Start 04/03/19 at 09:00 Al Hydrox/Mg Hydrox/Simethicone (Mag-Al Plus) 30 ml Q6H PRN PO GASTROINTESTINAL UPSET Last administered on 04/14/19 22:43; Admin Dose 30 ML; Start 04/02/19 at 18:30 Carvedilol (Coreg) 12.5 mg BID PO Last administered on 04/19/19 20:52; Admin Dose 12.5 MG; Start 04/02/19 at 21:00 Dexamethasone (Maxidex 0.1% Oph) 2 drop BID BOTH EYES Last administered on 04/19/19 20:51; Admin Dose 2 DROP; Start 04/03/19 at 21:00 Lisinopril (Zestril) 20 mg BID PO Last administered on 04/19/19 20:52; Admin Dose 20 MG; Start 04/05/19 at 21:00 Vancomycin HCl (Vanco Iv Per Pharmacy) VANCOMYCIN PER PHARMACY PER PROTOCOL XX ; Start 04/10/19 at 16:00 Meropenem/Sodium Chloride 50 ml @ 100 mls/hr Q8 IVPB Last administered on 04/20/19 05:48; Admin Dose 100 MLS/HR; Start 04/10/19 at 17:00 Famotidine (Pepcid) 20 mg DAILY PO Last administered on 04/19/19 08:35; Admin Dose 20 MG; Start 04/11/19 at 09:00 Magnesium Oxide (Mag-Ox 400) 400 mg BID PO Last administered on 04/19/19 20:51; Admin Dose 400 MG; Start 04/10/19 at 21:00 Loperamide HCl (Imodium Cap) 2 mg Q8H PRN PO DIARRHEA Last administered on 04/15/19 08:40; Admin Dose 2 MG; Start 04/13/19 at 09:00 Furosemide (Lasix) 20 mg DAILY PO Last administered on 04/19/19 08:35; Admin Dose 20 MG; Start 04/19/19 at 09:00 Insulin Aspart (Novolog Insulin Pen) 6 unit WITH MEALS SC Last administered on 04/19/19 17:47; Admin Dose 6 UNIT; Start 04/14/19 at 07:50 Insulin Glargine (Lantus) 18 units DAILY@2000 SC Last administered on 04/19/19 21:08; Admin Dose 18 UNITS; Start 04/13/19 at 20:00 Saccharomyces Boulardii (Florastor) 500 mg BID PO Last administered on 04/19/19 20:51; Admin Dose 500 MG; Start 04/15/19 at 11:00 Vancomycin HCl 1.25 gm/Sodium Chloride 250 ml @ 83.333 mls/ hr Q8H IVPB Last administered on 04/20/19 06:24; Admin Dose 83.333 MLS/HR; Start 04/16/19 at 06: 00 Alteplase, Recombinant (Cathflo (Activase)) 2 mg MAY REPEAT X1 PRN CATHETER IF CATHETER REMAINS OCCULUDED; Start 04/16/19 at 15:00 KATIE PACE NP Apr 20, 2019 07:43
[2019-04-20] MEDS: SACCHAROMYCES BOULARDII 250 MG CAP PO SCH ×2 (08:20→20:29)
[2019-04-20] MEDS: ACYCLOVIR 400 MG TAB PO SCH (08:20)
[2019-04-20] MEDS: FLUCONAZOLE 100 MG TAB PO SCH (08:20)
[2019-04-20] MEDS: INSULIN ASPART [NOVOLOG] 3 ML PEN SC SCH ×7 (08:21→21:00)
[2019-04-20] MEDS: FUROSEMIDE 20 MG TAB PO SCH (08:22)
[2019-04-20] MEDS: MAGNESIUM OXIDE 400 MG TAB PO SCH ×2 (08:22→20:29)
[2019-04-20] MEDS: FAMOTIDINE 20 MG TAB PO SCH (08:23)
[2019-04-20] MEDS: LISINOPRIL 20 MG TAB PO SCH ×2 (08:23→20:29)
[2019-04-20] MEDS: DEXAMETHASONE 0.1% 5 ML OPH BOTH EYES SCH ×2 (08:23→20:30)
[2019-04-20 09:00] VITALS: BP 170/94; RESP 18
[2019-04-20 14:00] VITALS: BP 144/82; PULSE 78; RESP 18
--- NOTE | 2019-04-20 15:44 | CONS ---
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 Counts are recovering but blasts persist indicating inadequate response to c hemo. Pancytopenia has improved, no further transfusions needed. Continue to monitor counts. Consultation Date/Type/Reason Admit Date/Time Mar 23, 2019 at 16:10 Initial Consult Date 03/24/19 Type of Consult Hematology Oncology Reason for Consultation AML Requesting Provider: KATIE PACE NP Date/Time of Note DATE: 04/20/19 TIME: 15:42 24 HR Interval Summary Free Text/Dictation He feels good, no current c/o Denies pain. Eating well. Exam/Review of Systems Exam Vitals Vital Signs Date Temp Pulse Resp B/P (MAP) Pulse Ox O2 O2 Flow FiO2 Time Delivery Rate 04/20/19 98.0 18 170/94 98 Room Air 09:00 (119) 04/19/19 77 20:33 Intake and Output 04/19/19 04/19/19 04/20/19 1414:59 22:59 06:59 IntakeIntake Total 680 ml 490 ml 1100 ml BalanceBalance 680 ml 490 ml 1100 ml Exam Alopecia NAD Clear bilaterally. Abd soft, NTTP Ext - no edema. Skin - no rash Results Result Diagram: 04/20/195 04/20/19 0455 Results 24hrs Laboratory Tests Test 04/19/19 20:56 04/20/19 01:38 04/20/19 04:55 04/20/19 08:10 Bedside Glucose 251 H 191 170 White Blood Count 2.4 #L Red Blood Count 3.23 L Hemoglobin 10.0 L Hematocrit 28.1 L Mean Corpuscular 87.0 Volume Mean Corpuscular 31.0 Hemoglobin Mean Corpuscular 35.6 Hemoglobin Concent Red Cell 12.0 Distribution Width Platelet Count 180 # Mean Platelet Volume 9.4 Immature 10.300 H Granulocytes % Neutrophils % Segmented 11 L Neutrophils % (Manual) Band Neutrophils % 5 H (Manual) Lymphocytes % Lymphocytes % 39 (Manual) Reactive Lymphocytes 3 H % (Manual) Monocytes % Monocytes % (Manual) 31 H Eosinophils % Basophils % Metamyelocytes % 3 H (manual) Myelocytes % 3 H (Manual) Promyelocytes % 2 H (Manual) Blast Cells % 2.0 H (Manual) Plasma Cells % 1 (manual) Nucleated Red Blood 0.0 Cells % Immature 0.250 H Granulocytes # Neutrophils # Neutrophils # 0.3 L (Manual) Band Neutrophils # 0.1 Lymphocytes (Manual) 0.9 Lymphocytes # Reactive Lymphocytes 0.0 # Monocytes # Monocytes # (Manual) 0.7 Eosinophils # Basophils # Metamyelocytes # 0.0 Myelocytes # 0.0 Promyelocytes # 0.0 Plasma Cells # 0.0 (manual) Nucleated Red Blood Cells # Platelet Estimate NORMAL Giant Platelets 3 H Poikilocytosis 2+ Ovalocytes 1+ Sodium Level 137 Potassium Level 3.8 Chloride Level 100 Carbon Dioxide Level 28 Anion Gap 9 Blood Urea Nitrogen 10 Creatinine 0.48 L Est Glomerular > 60 Filtrat Rate mL/min Glucose Level 151 Calcium Level 8.9 Phosphorus Level 4.7 Magnesium Level 2.0 Test 04/20/19 12:34 Bedside Glucose 238 H Medications Medication Current Medications Insulin Aspart (Novolog Insulin Pen) NOVOLOG *MILD* ALGORI... WITH MEALS BEDTIME SC Last administered on 04/20/19 12:37; Admin Dose 3 UNIT; Start 03/23/19 at 18:00 IV Flush (NS 3 ml) 3 ml PER PROTOCOL IV Last administered on 04/08/19 05:29; Admin Dose 3 ML; Start 03/23/19 at 18:00 Ondansetron HCl (Zofran Inj) 4 mg Q6H PRN IV NAUSEA/VOMITING Last administered on 04/09/19 17:54; Admin Dose 4 MG; Start 03/23/19 at 18:00 Acetaminophen (Tylenol Tab) 650 mg Q6H PRN PO .PAIN 1-3 OR TEMP Last administered on 04/15/19 10:57; Admin Dose 650 MG; Start 03/23/19 at 18:00 Acetaminophen/ Hydrocodone Bitart ([place] (5/325)) 1 tab Q6H PRN PO .MOD PAIN 4- 6 Last administered on 04/10/19 03:07; Admin Dose 1 TAB; Start 03/23/19 at 18:00 Miscellaneous Information 1 ea NOTE XX ; Start 03/23/19 at 18:00 Glucose (Glutose) 15 gm Q15M PRN PO DECREASED GLUCOSE; Start 03/23/19 at 18:00 Glucose (Glutose) 22.5 gm Q15M PRN PO DECREASED GLUCOSE; Start 03/23/19 at 18:00 Dextrose (D50w Syringe) 25 ml Q15M PRN IV DECREASED GLUCOSE; Start 03/23/19 at 18:00 Dextrose (D50w Syringe) 50 ml Q15M PRN IV DECREASED GLUCOSE; Start 03/23/19 at 18:00 Glucagon (Glucagen) 1 mg Q15M PRN IM DECREASED GLUCOSE; Start 03/23/19 at 18:00 Glucose (Glutose) 15 gm Q15M PRN BUCCAL DECREASED GLUCOSE; Start 03/23/19 at 18:00 Hydralazine HCl (Apresoline) 10 mg Q4H PRN IV FOR SBP>170; Start 03/26/19 at 03:30 Albuterol/ Ipratropium (Duoneb) 3 ml Q2H RESP THERAPY PRN HHN sob; Start 03/09 05/27 at 12:30 Fluconazole (Diflucan) 100 mg DAILY PO Last administered on 04/20/19 08:20; Admin Dose 100 MG; Start 04/02/19 at 15:30 Acyclovir (Zovirax) 400 mg DAILY PO Last administered on 04/20/19 08:20; Admin Dose 400 MG; Start 04/03/19 at 09:00 Al Hydrox/Mg Hydrox/Simethicone (Mag-Al Plus) 30 ml Q6H PRN PO GASTROINTESTINAL UPSET Last administered on 04/14/19at 22:43; Admin Dose 30 ML; Start 04/02/19 at 18:30 Carvedilol (Coreg) 12.5 mg BID PO Last administered on 04/20/19 08:23; Admin Dose 12.5 MG; Start 04/02/19 at 21:00 Dexamethasone (Maxidex 0.1% Oph) 2 drop BID BOTH EYES Last administered on 04/20/19 08:23; Admin Dose 2 DROP; Start 04/03/19 at 21:00 Lisinopril (Zestril) 20 mg BID PO Last administered on 04/20/19 08:23; Admin Dose 20 MG; Start 04/05/19 at 21:00 Vancomycin HCl (Vanco Iv Per Pharmacy) VANCOMYCIN PER PHARMACY PER PROTOCOL XX ; Start 04/10/19 at 16:00 Meropenem/Sodium Chloride 50 ml @ 100 mls/hr Q8 IVPB Last administered on 04/20/19 13:24; Admin Dose 100 MLS/HR; Start 04/10/19 at 17:00 Famotidine (Pepcid) 20 mg DAILY PO Last administered on 04/20/19 08:23; Admin Dose 20 MG; Start 04/11/19 at 09:00 Magnesium Oxide (Mag-Ox 400) 400 mg BID PO Last administered on 04/20/19 08:22; Admin Dose 400 MG; Start 04/10/19 at 21:00 Loperamide HCl (Imodium Cap) 2 mg Q8H PRN PO DIARRHEA Last administered on 04/15/19 08:40; Admin Dose 2 MG; Start 04/13/19 at 09:00 Furosemide (Lasix) 20 mg DAILY PO Last administered on 04/20/19 08:22; Admin Dose 20 MG; Start 04/19/19 at 09:00 Insulin Aspart (Novolog Insulin Pen) 6 unit WITH MEALS SC Last administered on 04/20/19 12:38; Admin Dose 6 UNIT; Start 04/14/19 at 07:50 Insulin Glargine (Lantus) 18 units DAILY@2000 SC Last administered on 04/19/19 21:08; Admin Dose 18 UNITS; Start 04/13/19 at 20:00 Saccharomyces Boulardii (Florastor) 500 mg BID PO Last administered on 04/20/19 08:20; Admin Dose 500 MG; Start 04/15/19 at 11:00 Vancomycin HCl 1.25 gm/Sodium Chloride 250 ml @ 83.333 mls/ hr Q8H IVPB Last administered on 04/20/19 13:24; Admin Dose 83.333 MLS/HR; Start 04/16/19 at 06:00 Alteplase, Recombinant (Cathflo (Activase)) 2 mg MAY REPEAT X1 PRN CATHETER IF CATHETER REMAINS OCCULUDED; Start 04/16/19 at 15:00 Miscellaneous Information (*Rx Drug Level Order Reminder*) VANCO TROUGH @ 1,300 1300 ONCE XX ; Start 04/21/19 at 13:00; Stop 04/21/19 at 13:01 TRI SOLER MD Apr 20, 2019 15:44
--- NOTE | 2019-04-20 16:31 | CONS ---
Consultation Date/Type/Reason Admit Date/Time Mar 23, 2019 at 16:10 Initial Consult Date SUBJECTIVE: Pt is awake, alert, afebrile, resting in bed comfortably. VS: stable T: 98.0 LABS: Reviewed. WBC-2.4 H&H stable Indwelling's: Right IJ Port-A-Cath MICROBIOLOGY: Blood cultures and urine culture negative Stool for C. difficile negative Antimicrobials: Vanco, Merrem, fluconazole, acyclovir Physical examination: GEN: Well-developed middle-aged man who is alert in no distress HENT: head atraumatic normocephalic, sclera nonicteric vehicle mucosa pink, neck is supple PULM: chest rise symmetrical breath sounds clear Heart: S1-S2 Abdomen: soft, bowel sounds present Extremities: no cyanosis or edema Assessment: 1. S/p neutropenic fevers 2. AML, newly diagnosed 3. Diabetes 4. Hypertension 5. Pancytopenia Plan:Pt is stable. Oncology recommendations. y Requesting Provider: KATIE PACE NP Date/Time of Note DATE: 04/20/19 TIME: 16:27 Exam/Review of Systems Exam Vitals Vital Signs Date Temp Pulse Resp B/P (MAP) Pulse Ox O2 O2 Flow FiO2 Time Delivery Rate 04/20/19 98.0 18 170/94 98 Room Air 09:00 (119) 04/19/19 77 20:33 Intake and Output 04/19/19 04/19/19 04/20/19 1515:00 23:00 07:00 IntakeIntake Total 680 ml 490 ml 1100 ml BalanceBalance 680 ml 490 ml 1100 ml Results Result Diagram: 04/20/19 0455 04/20/19 0455 Results 24hrs Laboratory Tests Test 04/19/19 20:56 04/20/19 01:38 04/20/19 04:55 04/20/19 08:10 Bedside Glucose 251 H 191 170 White Blood Count 2.4 #L Red Blood Count 3.23 L Hemoglobin 10.0 L Hematocrit 28.1 L Mean Corpuscular 87.0 Volume Mean Corpuscular 31.0 Hemoglobin Mean Corpuscular 35.6 Hemoglobin Concent Red Cell 12.0 Distribution Width Platelet Count 180 # Mean Platelet Volume 9.4 Immature 10.300 H Granulocytes % Neutrophils % Segmented 11 L Neutrophils % (Manual) Band Neutrophils % 5 H (Manual) Lymphocytes % Lymphocytes % 39 (Manual) Reactive Lymphocytes 3 H % (Manual) Monocytes % Monocytes % (Manual) 31 H Eosinophils % Basophils % Metamyelocytes % 3 H (manual) Myelocytes % 3 H (Manual) Promyelocytes % 2 H (Manual) Blast Cells % 2.0 H (Manual) Plasma Cells % 1 (manual) Nucleated Red Blood 0.0 Cells % Immature 0.250 H Granulocytes # Neutrophils # Neutrophils # 0.3 L (Manual) Band Neutrophils # 0.1 Lymphocytes (Manual) 0.9 Lymphocytes # Reactive Lymphocytes 0.0 # Monocytes # Monocytes # (Manual) 0.7 Eosinophils # Basophils # Metamyelocytes # 0.0 Myelocytes # 0.0 Promyelocytes # 0.0 Plasma Cells # 0.0 (manual) Nucleated Red Blood Cells # Platelet Estimate NORMAL Giant Platelets 3 H Poikilocytosis 2+ Ovalocytes 1+ Sodium Level 137 Potassium Level 3.8 Chloride Level 100 Carbon Dioxide Level 28 Anion Gap 9 Blood Urea Nitrogen 10 Creatinine 0.48 L Est Glomerular > 60 Filtrat Rate mL/min Glucose Level 151 Calcium Level 8.9 Phosphorus Level 4.7 Magnesium Level 2.0 Test 04/20/19 12:34 Bedside Glucose 238 H Medications Medication Current Medications Insulin Aspart (Novolog Insulin Pen) NOVOLOG *MILD* ALGORI... WITH MEALS BEDTIME SC Last administered on 04/20/19 12:37; Admin Dose 3 UNIT; Start 03/23/19 at 18:00 IV Flush (NS 3 ml) 3 ml PER PROTOCOL IV Last administered on 04/08/19 05:29; Admin Dose 3 ML; Start 03/23/19 at 18:00 Ondansetron HCl (Zofran Inj) 4 mg Q6H PRN IV NAUSEA/VOMITING Last administered on 04/09/19 17:54; Admin Dose 4 MG; Start 03/23/19 at 18:00 Acetaminophen (Tylenol Tab) 650 mg Q6H PRN PO .PAIN 1-3 OR TEMP Last administered on 04/15/19 10:57; Admin Dose 650 MG; Start 03/23/19 at 18:00 Acetaminophen/ Hydrocodone Bitart ([place] (5/325)) 1 tab Q6H PRN PO .MOD PAIN 4- 6 Last administered on 04/10/19 03:07; Admin Dose 1 TAB; Start 03/23/19 at 18:00 Miscellaneous Information 1 ea NOTE XX ; Start 03/23/19 at 18:00 Glucose (Glutose) 15 gm Q15M PRN PO DECREASED GLUCOSE; Start 03/23/19 at 18:00 Glucose (Glutose) 22.5 gm Q15M PRN PO DECREASED GLUCOSE; Start 03/23/19 at 18:00 Dextrose (D50w Syringe) 25 ml Q15M PRN IV DECREASED GLUCOSE; Start 03/23/19 at 18:00 Dextrose (D50w Syringe) 50 ml Q15M PRN IV DECREASED GLUCOSE; Start 03/23/19 at 18:00 Glucagon (Glucagen) 1 mg Q15M PRN IM DECREASED GLUCOSE; Start 03/23/19 at 18:00 Glucose (Glutose) 15 gm Q15M PRN BUCCAL DECREASED GLUCOSE; Start 03/23/19 at 18:00 Hydralazine HCl (Apresoline) 10 mg Q4H PRN IV FOR SBP>170; Start 03/26/19 at 03:30 Albuterol/ Ipratropium (Duoneb) 3 ml Q2H RESP THERAPY PRN HHN sob; Start 03/09 05/27 at 12:30 Fluconazole (Diflucan) 100 mg DAILY PO Last administered on 04/20/19 08:20; Admin Dose 100 MG; Start 04/02/19 at 15:30 Acyclovir (Zovirax) 400 mg DAILY PO Last administered on 04/20/19 08:20; Admin Dose 400 MG; Start 04/03/19 at 09:00 Al Hydrox/Mg Hydrox/Simethicone (Mag-Al Plus) 30 ml Q6H PRN PO GASTROINTESTINAL UPSET Last administered on 04/14/19 22:43; Admin Dose 30 ML; Start 04/02/19 at 18:30 Carvedilol (Coreg) 12.5 mg BID PO Last administered on 04/20/19 08:23; Admin Dose 12.5 MG; Start 04/02/19 at 21:00 Dexamethasone (Maxidex 0.1% Oph) 2 drop BID BOTH EYES Last administered on 04/20/19 08:23; Admin Dose 2 DROP; Start 04/03/19 at 21:00 Lisinopril (Zestril) 20 mg BID PO Last administered on 04/20/19 08:23; Admin Dose 20 MG; Start 04/05/19 at 21:00 Vancomycin HCl (Vanco Iv Per Pharmacy) VANCOMYCIN PER PHARMACY PER PROTOCOL XX ; Start 04/10/19 at 16:00 Meropenem/Sodium Chloride 50 ml @ 100 mls/hr Q8 IVPB Last administered on 04/20/19 13:24; Admin Dose 100 MLS/HR; Start 04/10/19 at 17:00 Famotidine (Pepcid) 20 mg DAILY PO Last administered on 04/20/19 08:23; Admin Dose 20 MG; Start 04/11/19 at 09:00 Magnesium Oxide (Mag-Ox 400) 400 mg BID PO Last administered on 04/20/19 08:22; Admin Dose 400 MG; Start 04/10/19 at 21:00 Loperamide HCl (Imodium Cap) 2 mg Q8H PRN PO DIARRHEA Last administered on 04/15/19 08:40; Admin Dose 2 MG; Start 04/13/19 at 09:00 Furosemide (Lasix) 20 mg DAILY PO Last administered on 04/20/19 08:22; Admin Dose 20 MG; Start 04/19/19 at 09:00 Insulin Aspart (Novolog Insulin Pen) 6 unit WITH MEALS SC Last administered on 04/20/19 12:38; Admin Dose 6 UNIT; Start 04/14/19 at 07:50 Insulin Glargine (Lantus) 18 units DAILY@2000 SC Last administered on 04/19/19 21:08; Admin Dose 18 UNITS; Start 04/13/19 at 20:00 Saccharomyces Boulardii (Florastor) 500 mg BID PO Last administered on 04/20/19 08:20; Admin Dose 500 MG; Start 04/15/19 at 11:00 Vancomycin HCl 1.25 gm/Sodium Chloride 250 ml @ 83.333 mls/ hr Q8H IVPB Last administered on 04/20/19 13:24; Admin Dose 83.333 MLS/HR; Start 04/16/19 at 06:00 Alteplase, Recombinant (Cathflo (Activase)) 2 mg MAY REPEAT X1 PRN CATHETER IF CATHETER REMAINS OCCULUDED; Start 04/16/19 at 15:00 Miscellaneous Information (*Rx Drug Level Order Reminder*) VANCO TROUGH @ 1,300 1300 ONCE XX ; Start 04/21/19 at 13:00; Stop 04/21/19 at 13:01 GRACIELA CARLIN Apr 20, 2019 16:31
[2019-04-20 19:25] VITALS: BP 179/96; PULSE 78; RESP 18
[2019-04-20] MEDS: INSULIN GLARGINE [LANTus] (100 UNITS/ML) SYG SC SCH (20:39)
[2019-04-21 02:11] VITALS: BP 149/84; PULSE 78; RESP 18
[2019-04-21] MEDS: MEROPENEM 500MG/50 ML (PMX) 50 ML IVPB SCH (05:24)
[2019-04-21] MEDS: VANCOMYCIN HCL 1.25 GM in SOD CHLORIDE 0.9% 250 ML IVPB SCH (06:29)
[2019-04-21 07:32] VITALS: BP 158/92; PULSE 75; RESP 18
--- NOTE | 2019-04-21 07:42 | PN ---
Date/Time of Note Date/Time of Note DATE: 04/21/19 TIME: 07:42 Assessment/Plan VTE Prophylaxis Risk score (from Ns)>0 risk: 6 SCD applied (from Ns): Yes Pharmacological prophylaxis: NA/contraindicated Pharm contraindication: low risk/ambulating Lines/Catheters IV [facility]from [facility]): [place] line still needed: Yes Urinary Cath still in place: No Assessment/Plan Hospital Course SUBJECTIVE: Denies any pain or dyspnea. OBJECTIVE: Physical Exam General: Adequately build 54 year-old male lying in bed in no apparent distress. HEENT: Normocephalic, atraumatic. Eyes: Anicteric sclerae, conjunctivae clear. ENT: Nasal septum midline, oral mucosa moist. Neck supple, no JVD noticed. Respiratory: Bilaterally clear breath sounds. No use of accessory muscles of respiration. No adventitious breath sounds. Cardiovascular: S1, S2 heard. Regular rate and rhythm. Abdomen: Soft, nontender, and nondistended. Bowel sounds positive in all 4 quadrants. Genitourinary: Deferred. Extremities: No cyanosis, no clubbing, no edema. Peripheral pulses palpable. Neurologic: Cranial nerves II through XII grossly intact. The patient is awake, alert, and oriented. Skin: Normal skin turgor. No skin rashes. Labs & Vitals per chart ASSESSMENT & PLAN 54-year-old male with comorbidities including hypertension and diabetes mellitus who presented to the emergency room on 03/22/2019 with febrile illness and was discharged home on oral antibiotics, who was called back on 03/23/2019 as per the instruction of the pathologist for increased blast cells on CBC drawn on 03/22/2019. 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 Inadequate response to 7+3 regimen. To be started on gemtuzumab ozogamicin (Mylotarg). 2. Neutropenic fevers. On antimicrobials as per ID. Reyes cultures remain negative. 3. Diabetes mellitus type 2. Hemoglobin A1c 9.6. Continue the patient on sliding scale insulin along with pre-meal insulin and basal insulin. 4. Hypertension. Continue antihypertensives. 5. Cardiomyopathy. EF of 35-40%. Continue BBs and ACEIs. Cardiology following. 6. Acute CHF exacerbation, systolic dysfunction. Continue diuretic therapy. Switched to oral diuretic therapy. 7. Fluids, electrolytes, and nutrition. Carbohydrate controlled, neutropenic diet. 8. DVT prophylaxis. Bilateral SCDs. 9. Plan. Continue to monitor for any secondary infection. To be initiated on Mylotarg. Transfusion of blood products will be deferred to oncology. The patient was seen in collaboration with Dr. Avilez. Result Diagram: 04/21/19 0458 04/21/19 0458 Results 24hrs Laboratory Tests Test 04/20/19 08:10 04/20/19 12:34 04/20/19 17:39 04/20/19 20:33 Bedside Glucose 170 238 H 178 149 Test 04/21/19 04:58 White Blood Count 4.5 #L Red Blood Count 3.29 L Hemoglobin 10.2 L Hematocrit 29.7 L Mean Corpuscular 90.3 Volume Mean Corpuscular 31.0 Hemoglobin Mean Corpuscular 34.3 Hemoglobin Concent Red Cell 12.2 Distribution Width Platelet Count 305 # Mean Platelet Volume 8.9 Immature 19.500 H Granulocytes % Neutrophils % Lymphocytes % Monocytes % Eosinophils % Basophils % Nucleated Red Blood 0.0 Cells % Immature 0.880 H Granulocytes # Neutrophils # Lymphocytes # Monocytes # Eosinophils # Basophils # Nucleated Red Blood Cells # Sodium Level 137 Potassium Level 3.6 Chloride Level 100 Carbon Dioxide Level 31 Anion Gap 6 Blood Urea Nitrogen 10 Creatinine 0.60 L Est Glomerular > 60 Filtrat Rate mL/min Glucose Level 109 # Calcium Level 9.0 Phosphorus Level 5.5 H Magnesium Level 2.1 Exam/Review of Systems Exam Vitals Vital Signs Date Temp Pulse Resp B/P (MAP) Pulse Ox O2 O2 Flow FiO2 Time Delivery Rate 04/21/19 98.8 75 18 158/92 98 07:32 (114) 04/20/19 Room Air 14:00 Intake and Output 04/20/19 04/20/19 04/21/19 1515:00 23:00 07:00 IntakeIntake Total 300 ml 1390 ml 250 ml BalanceBalance 300 ml 1390 ml 250 ml Results Results 24hrs Laboratory Tests Test 04/20/19 08:10 04/20/19 12:34 04/20/19 17:39 04/20/19 20:33 Bedside Glucose 170 238 H 178 149 Test 04/21/19 04:58 White Blood Count 4.5 #L Red Blood Count 3.29 L Hemoglobin 10.2 L Hematocrit 29.7 L Mean Corpuscular 90.3 Volume Mean Corpuscular 31.0 Hemoglobin Mean Corpuscular 34.3 Hemoglobin Concent Red Cell 12.2 Distribution Width Platelet Count 305 # Mean Platelet Volume 8.9 Immature 19.500 H Granulocytes % Neutrophils % Lymphocytes % Monocytes % Eosinophils % Basophils % Nucleated Red Blood 0.0 Cells % Immature 0.880 H Granulocytes # Neutrophils # Lymphocytes # Monocytes # Eosinophils # Basophils # Nucleated Red Blood Cells # Sodium Level 137 Potassium Level 3.6 Chloride Level 100 Carbon Dioxide Level 31 Anion Gap 6 Blood Urea Nitrogen 10 Creatinine 0.60 L Est Glomerular > 60 Filtrat Rate mL/min Glucose Level 109 # Calcium Level 9.0 Phosphorus Level 5.5 H Magnesium Level 2.1 Medications Medication Current Medications Insulin Aspart (Novolog Insulin Pen) NOVOLOG *MILD* ALGORI... WITH MEALS BEDTIME SC Last administered on 04/20/19 17:43; Admin Dose 1 UNIT; Start 03/23/19 at 18:00 IV Flush (NS 3 ml) 3 ml PER PROTOCOL IV Last administered on 04/08/19 05:29; Admin Dose 3 ML; Start 03/23/19 at 18:00 Ondansetron HCl (Zofran Inj) 4 mg Q6H PRN IV NAUSEA/VOMITING Last administered on 04/09/19 17:54; Admin Dose 4 MG; Start 03/23/19 at 18:00 Acetaminophen (Tylenol Tab) 650 mg Q6H PRN PO .PAIN 1-3 OR TEMP Last administered on 04/15/19 10:57; Admin Dose 650 MG; Start 03/23/19 at 18:00 Acetaminophen/ Hydrocodone Bitart ([place] (5/325)) 1 tab Q6H PRN PO .MOD PAIN 4- 6 Last administered on 04/10/19 03:07; Admin Dose 1 TAB; Start 03/23/19 at 18:00 Miscellaneous Information 1 ea NOTE XX ; Start 03/23/19 at 18:00 Glucose (Glutose) 15 gm Q15M PRN PO DECREASED GLUCOSE; Start 03/23/19 at 18:00 Glucose (Glutose) 22.5 gm Q15M PRN PO DECREASED GLUCOSE; Start 03/23/19 at 18:00 Dextrose (D50w Syringe) 25 ml Q15M PRN IV DECREASED GLUCOSE; Start 03/23/19 at 18:00 Dextrose (D50w Syringe) 50 ml Q15M PRN IV DECREASED GLUCOSE; Start 03/23/19 at 18:00 Glucagon (Glucagen) 1 mg Q15M PRN IM DECREASED GLUCOSE; Start 03/23/19 at 18:00 Glucose (Glutose) 15 gm Q15M PRN BUCCAL DECREASED GLUCOSE; Start 03/23/19 at 18:00 Hydralazine HCl (Apresoline) 10 mg Q4H PRN IV FOR SBP>170; Start 03/26/19 at 03:30 Albuterol/ Ipratropium (Duoneb) 3 ml Q2H RESP THERAPY PRN HHN sob; Start 03/26/19 at 12:30 Fluconazole (Diflucan) 100 mg DAILY PO Last administered on 04/20/19 08:20; Admin Dose 100 MG; Start 04/02/19 at 15:30 Acyclovir (Zovirax) 400 mg DAILY PO Last administered on 04/20/19 08:20; Admin Dose 400 MG; Start 04/03/19 at 09:00 Al Hydrox/Mg Hydrox/Simethicone (Mag-Al Plus) 30 ml Q6H PRN PO GASTROINTESTINAL UPSET Last administered on 04/14/19 22:43; Admin Dose 30 ML; Start 04/02/19 at 18:30 Carvedilol (Coreg) 12.5 mg BID PO Last administered on 04/20/19 20:30; Admin Dose 12.5 MG; Start 04/02/19 at 21:00 Dexamethasone (Maxidex 0.1% Oph) 2 drop BID BOTH EYES Last administered on 04/20/19 20:30; Admin Dose 2 DROP; Start 04/03/19 at 21:00 Lisinopril (Zestril) 20 mg BID PO Last administered on 04/20/19 20:29; Admin Dose 20 MG; Start 04/05/19 at 21:00 Vancomycin HCl (Vanco Iv Per Pharmacy) VANCOMYCIN PER PHARMACY PER PROTOCOL XX ; Start 04/10/19 at 16:00 Meropenem/Sodium Chloride 50 ml @ 100 mls/hr Q8 IVPB Last administered on 04/21/19 05:24; Admin Dose 100 MLS/HR; Start 04/10/19 at 17:00 Famotidine (Pepcid) 20 mg DAILY PO Last administered on 04/20/19 08:23; Admin Dose 20 MG; Start 04/11/19 at 09:00 Magnesium Oxide (Mag-Ox 400) 400 mg BID PO Last administered on 04/20/19 20:29; Admin Dose 400 MG; Start 04/10/19 at 21:00 Loperamide HCl (Imodium Cap) 2 mg Q8H PRN PO DIARRHEA Last administered on 04/15/19 08:40; Admin Dose 2 MG; Start 04/13/19 at 09:00 Furosemide (Lasix) 20 mg DAILY PO Last administered on 04/20/19 08:22; Admin Dose 20 MG; Start 04/19/19 at 09:00 Insulin Aspart (Novolog Insulin Pen) 6 unit WITH MEALS SC Last administered on 04/20/19 17:42; Admin Dose 6 UNIT; Start 04/14/19 at 07:50 Insulin Glargine (Lantus) 18 units DAILY@2000 SC Last administered on 04/20/19 20:39; Admin Dose 18 UNITS; Start 04/13/19 at 20:00 Saccharomyces Boulardii (Florastor) 500 mg BID PO Last administered on 04/20/19 20:29; Admin Dose 500 MG; Start 04/15/19 at 11:00 Vancomycin HCl 1.25 gm/Sodium Chloride 250 ml @ 83.333 mls/ hr Q8H IVPB Last administered on 04/21/19 06:29; Admin Dose 83.333 MLS/HR; Start 04/16/19 at 06:00 Alteplase, Recombinant (Cathflo (Activase)) 2 mg MAY REPEAT X1 PRN CATHETER IF CATHETER REMAINS OCCULUDED; Start 04/16/19 at 15:00 Miscellaneous Information (*Rx Drug Level Order Reminder*) VANCO TROUGH @ 1,300 1300 ONCE XX ; Start 04/21/19 at 13:00; Stop 04/21/19 at 13:01 KATIE PACE NP Apr 21, 2019 07:42
[2019-04-21] MEDS: INSULIN ASPART [NOVOLOG] 3 ML PEN SC SCH ×7 (07:50→20:59)
[2019-04-21] MEDS: MAGNESIUM OXIDE 400 MG TAB PO SCH ×2 (08:29→21:02)
[2019-04-21] MEDS: FUROSEMIDE 20 MG TAB PO SCH (08:29)
[2019-04-21] MEDS: FAMOTIDINE 20 MG TAB PO SCH (08:29)
[2019-04-21] MEDS: ACYCLOVIR 400 MG TAB PO SCH (08:30)
[2019-04-21] MEDS: LISINOPRIL 20 MG TAB PO SCH ×2 (08:30→21:02)
[2019-04-21] MEDS: DEXAMETHASONE 0.1% 5 ML OPH BOTH EYES SCH ×2 (08:30→21:04)
[2019-04-21] MEDS: SACCHAROMYCES BOULARDII 250 MG CAP PO SCH ×2 (08:30→21:03)
[2019-04-21] MEDS: FLUCONAZOLE 100 MG TAB PO SCH (08:30)
--- NOTE | 2019-04-21 12:27 | CONS ---
Consultation Date/Type/Reason Admit Date/Time Mar 23, 2019 at 16:10 Initial Consult Date SUBJECTIVE: Pt is awake, alert, afebrile, resting in bed comfortably. VS: stable T: 98.8 LABS: Reviewed. WBC-4.5H&H stable Indwelling's: Right IJ Port-A-Cath MICROBIOLOGY: Blood cultures and urine culture negative Stool for C. difficile negative Antimicrobials: Vanco, Merrem, fluconazole, acyclovir Physical examination: GEN: Well-developed middle-aged man who is alert in no distress HENT: head atraumatic normocephalic, sclera nonicteric vehicle mucosa pink, neck is supple PULM: chest rise symmetrical breath sounds clear Heart: S1-S2 Abdomen: soft, bowel sounds present Extremities: no cyanosis or edema Assessment: 1. S/p neutropenic fevers 2. AML, newly diagnosed 3. Diabetes 4. Hypertension 5. Pancytopenia -improved Plan:Pt is stable. Will change to Po antbx at this time. continue Diflucan. Start PO doxy and Levaquin. D/C Merrem and Vanco. Oncology recommendations. No transfusions at this time. y Requesting Provider: KATIE PACE NP Date/Time of Note DATE: 04/21/19 TIME: 12:26 Exam/Review of Systems Exam Vitals Vital Signs Date Temp Pulse Resp B/P (MAP) Pulse Ox O2 O2 Flow FiO2 Time Delivery Rate 04/21/19 98.8 75 18 158/92 98 07:32 (114) 04/20/19 Room Air 14:00 Intake and Output 04/20/19 04/20/19 04/21/19 1515:00 23:00 07:00 IntakeIntake Total 300 ml 1390 ml 300 ml BalanceBalance 300 ml 1390 ml 300 ml Results Result Diagram: 04/21/19 0458 04/21/19 0458 Results 24hrs Laboratory Tests Test 04/20/19 12:34 04/20/19 17:39 04/20/19 20:33 04/21/19 04:58 Bedside Glucose 238 H 178 149 White Blood Count 4.5 #L Red Blood Count 3.29 L Hemoglobin 10.2 L Hematocrit 29.7 L Mean Corpuscular 90.3 Volume Mean Corpuscular 31.0 Hemoglobin Mean Corpuscular 34.3 Hemoglobin Concent Red Cell 12.2 Distribution Width Platelet Count 305 # Mean Platelet Volume 8.9 Immature 19.500 H Granulocytes % Neutrophils % Segmented 8 L Neutrophils % (Manual) Band Neutrophils % 8 H (Manual) Lymphocytes % Lymphocytes % 42 (Manual) Monocytes % Monocytes % (Manual) 28 H Eosinophils % Basophils % Metamyelocytes % 2 H (manual) Myelocytes % 5 H (Manual) Promyelocytes % 3 H (Manual) Blast Cells % 4.0 H (Manual) Nucleated Red Blood 0.0 Cells % Immature 0.880 H Granulocytes # Neutrophils # Neutrophils # 0.4 L (Manual) Band Neutrophils # 0.3 Lymphocytes (Manual) 1.8 Lymphocytes # Monocytes # Monocytes # (Manual) 1.2 H Eosinophils # Basophils # Metamyelocytes # 0.0 Myelocytes # 0.2 H Promyelocytes # 0.1 H Nucleated Red Blood Cells # Platelet Estimate NORMAL Giant Platelets 1 H Anisocytosis 1+ Microcytosis 1+ Sodium Level 137 Potassium Level 3.6 Chloride Level 100 Carbon Dioxide Level 31 Anion Gap 6 Blood Urea Nitrogen 10 Creatinine 0.60 L Est Glomerular > 60 Filtrat Rate mL/min Glucose Level 109 # Calcium Level 9.0 Phosphorus Level 5.5 H Magnesium Level 2.1 Test 04/21/19 08:27 Bedside Glucose 110 Medications Medication Current Medications Insulin Aspart (Novolog Insulin Pen) NOVOLOG *MILD* ALGORI... WITH MEALS BEDTIME SC Last administered on 04/20/19 17:43; Admin Dose 1 UNIT; Start 03/23/19 at 18:00 IV Flush (NS 3 ml) 3 ml PER PROTOCOL IV Last administered on 04/08/19 05:29; Admin Dose 3 ML; Start 03/23/19 at 18:00 Ondansetron HCl (Zofran Inj) 4 mg Q6H PRN IV NAUSEA/VOMITING Last administered on 04/09/19 17:54; Admin Dose 4 MG; Start 03/23/19 at 18:00 Acetaminophen (Tylenol Tab) 650 mg Q6H PRN PO .PAIN 1-3 OR TEMP Last administered on 04/15/19 10:57; Admin Dose 650 MG; Start 03/23/19 at 18:00 Acetaminophen/ Hydrocodone Bitart ([place] (5/325)) 1 tab Q6H PRN PO .MOD PAIN 4- 6 Last administered on 04/10/19 03:07; Admin Dose 1 TAB; Start 03/23/19 at 18:00 Miscellaneous Information 1 ea NOTE XX ; Start 03/23/19 at 18:00 Glucose (Glutose) 15 gm Q15M PRN PO DECREASED GLUCOSE; Start 03/23/19 at 18:00 Glucose (Glutose) 22.5 gm Q15M PRN PO DECREASED GLUCOSE; Start 03/23/19 at 18:00 Dextrose (D50w Syringe) 25 ml Q15M PRN IV DECREASED GLUCOSE; Start 03/23/19 at 18:00 Dextrose (D50w Syringe) 50 ml Q15M PRN IV DECREASED GLUCOSE; Start 03/23/19 at 18:00 Glucagon (Glucagen) 1 mg Q15M PRN IM DECREASED GLUCOSE; Start 03/23/19 at 18:00 Glucose (Glutose) 15 gm Q15M PRN BUCCAL DECREASED GLUCOSE; Start 03/23/19 at 18:00 Hydralazine HCl (Apresoline) 10 mg Q4H PRN IV FOR SBP>170; Start 03/26/19 at 03:30 Albuterol/ Ipratropium (Duoneb) 3 ml Q2H RESP THERAPY PRN HHN sob; Start 03/09 05/27 at 12:30 Fluconazole (Diflucan) 100 mg DAILY PO Last administered on 04/21/19 08:30; Admin Dose 100 MG; Start 04/02/19 at 15:30 Acyclovir (Zovirax) 400 mg DAILY PO Last administered on 04/21/19 08:30; Admin Dose 400 MG; Start 04/03/19 at 09:00 Al Hydrox/Mg Hydrox/Simethicone (Mag-Al Plus) 30 ml Q6H PRN PO GASTROINTESTINAL UPSET Last administered on 04/14/19 22:43; Admin Dose 30 ML; Start 04/02/19 at 18:30 Carvedilol (Coreg) 12.5 mg BID PO Last administered on 04/21/19 08:29; Admin Dose 12.5 MG; Start 04/02/19 at 21:00 Dexamethasone (Maxidex 0.1% Oph) 2 drop BID BOTH EYES Last administered on 04/21/19 08:30; Admin Dose 2 DROP; Start 04/03/19 at 21:00 Lisinopril (Zestril) 20 mg BID PO Last administered on 04/21/19 08:30; Admin Dose 20 MG; Start 04/05/19 at 21:00 Vancomycin HCl (Vanco Iv Per Pharmacy) VANCOMYCIN PER PHARMACY PER PROTOCOL XX ; Start 04/10/19 at 16:00 Meropenem/Sodium Chloride 50 ml @ 100 mls/hr Q8 IVPB Last administered on 04/21/19 05:24; Admin Dose 100 MLS/HR; Start 04/10/19 at 17:00 Famotidine (Pepcid) 20 mg DAILY PO Last administered on 04/21/19 08:29; Admin Dose 20 MG; Start 04/11/19 at 09:00 Magnesium Oxide (Mag-Ox 400) 400 mg BID PO Last administered on 04/21/19 08:29; Admin Dose 400 MG; Start 04/10/19 at 21:00 Loperamide HCl (Imodium Cap) 2 mg Q8H PRN PO DIARRHEA Last administered on 04/15/19 08:40; Admin Dose 2 MG; Start 04/13/19 at 09:00 Furosemide (Lasix) 20 mg DAILY PO Last administered on 04/21/19 08:29; Admin Dose 20 MG; Start 04/19/19 at 09:00 Insulin Aspart (Novolog Insulin Pen) 6 unit WITH MEALS SC Last administered on 04/21/19 08:34; Admin Dose 6 UNIT; Start 04/14/19 at 07:50 Insulin Glargine (Lantus) 18 units DAILY@2000 SC Last administered on 04/20/19 20:39; Admin Dose 18 UNITS; Start 04/13/19 at 20:00 Saccharomyces Boulardii (Florastor) 500 mg BID PO Last administered on 04/21/19 08:30; Admin Dose 500 MG; Start 04/15/19 at 11:00 Vancomycin HCl 1.25 gm/Sodium Chloride 250 ml @ 83.333 mls/ hr Q8H IVPB Last administered on 04/21/19 06:29; Admin Dose 83.333 MLS/HR; Start 04/16/19 at 06:00 Alteplase, Recombinant (Cathflo (Activase)) 2 mg MAY REPEAT X1 PRN CATHETER IF CATHETER REMAINS OCCULUDED; Start 04/16/19 at 15:00 Miscellaneous Information (*Rx Drug Level Order Reminder*) VANCO TROUGH @ 1,300 1300 ONCE XX ; Start 04/21/19 at 13:00; Stop 04/21/19 at 13:01 GRACIELA CARLIN Apr 21, 2019 12:27
[2019-04-21 14:12] VITALS: BP 168/84; PULSE 81; RESP 1
--- NOTE | 2019-04-21 14:56 | CONS ---
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 > AML, post induction chemo. He has recovered from induction. Still has residual blasts. Plan for second line treatment prior to discharge. > Pancytopenia, counts are improving. Consultation Date/Type/Reason Admit Date/Time Mar 23, 2019 at 16:10 Initial Consult Date 03/24/19 Type of Consult Hematology Oncology Requesting Provider: KATIE PACE NP Date/Time of Note DATE: 04/21/19 TIME: 14:54 24 HR Interval Summary Free Text/Dictation He feels great, energy improved, walking and eating well Exam/Review of Systems Exam Vitals Vital Signs Date Temp Pulse Resp B/P (MAP) Pulse Ox O2 O2 Flow FiO2 Time Delivery Rate 04/21/19 98.3 81 1 168/84 98 14:12 (112) 04/20/19 Room Air 14:00 Intake and Output 04/20/19 04/20/19 04/21/19 1515:00 23:00 07:00 IntakeIntake Total 300 ml 1390 ml 300 ml BalanceBalance 300 ml 1390 ml 300 ml Exam NAD Chest is clear bilaterally Regular. Abd soft non tender No edema. Neuro intact. Results Result Diagram: 04/21/19 0458 04/21/19 0458 Results 24hrs Laboratory Tests Test 04/20/19 17:39 04/20/19 20:33 04/21/19 04:58 04/21/19 08:27 Bedside Glucose 178 149 110 White Blood Count 4.5 #L Red Blood Count 3.29 L Hemoglobin 10.2 L Hematocrit 29.7 L Mean Corpuscular 90.3 Volume Mean Corpuscular 31.0 Hemoglobin Mean Corpuscular 34.3 Hemoglobin Concent Red Cell 12.2 Distribution Width Platelet Count 305 # Mean Platelet Volume 8.9 Immature 19.500 H Granulocytes % Neutrophils % Segmented 8 L Neutrophils % (Manual) Band Neutrophils % 8 H (Manual) Lymphocytes % Lymphocytes % 42 (Manual) Monocytes % Monocytes % (Manual) 28 H Eosinophils % Basophils % Metamyelocytes % 2 H (manual) Myelocytes % 5 H (Manual) Promyelocytes % 3 H (Manual) Blast Cells % 4.0 H (Manual) Nucleated Red Blood 0.0 Cells % Immature 0.880 H Granulocytes # Neutrophils # Neutrophils # 0.4 L (Manual) Band Neutrophils # 0.3 Lymphocytes (Manual) 1.8 Lymphocytes # Monocytes # Monocytes # (Manual) 1.2 H Eosinophils # Basophils # Metamyelocytes # 0.0 Myelocytes # 0.2 H Promyelocytes # 0.1 H Nucleated Red Blood Cells # Platelet Estimate NORMAL Giant Platelets 1 H Anisocytosis 1+ Microcytosis 1+ Sodium Level 137 Potassium Level 3.6 Chloride Level 100 Carbon Dioxide Level 31 Anion Gap 6 Blood Urea Nitrogen 10 Creatinine 0.60 L Est Glomerular > 60 Filtrat Rate mL/min Glucose Level 109 # Calcium Level 9.0 Phosphorus Level 5.5 H Magnesium Level 2.1 Test 04/21/19 12:30 04/21/19 13:35 Bedside Glucose 226 H Vancomycin Level 16.8 Trough Medications Medication Current Medications Insulin Aspart (Novolog Insulin Pen) NOVOLOG *MILD* ALGORI... WITH MEALS BEDTIME SC Last administered on 04/21/19 12:34; Admin Dose 3 UNIT; Start 03/23/19 at 18:00 IV Flush (NS 3 ml) 3 ml PER PROTOCOL IV Last administered on 04/08/19 05:29; Admin Dose 3 ML; Start 03/23/19 at 18:00 Ondansetron HCl (Zofran Inj) 4 mg Q6H PRN IV NAUSEA/VOMITING Last administered on 04/09/19 17:54; Admin Dose 4 MG; Start 03/23/19 at 18:00 Acetaminophen (Tylenol Tab) 650 mg Q6H PRN PO .PAIN 1-3 OR TEMP Last administered on 04/15/19 10:57; Admin Dose 650 MG; Start 03/23/19 at 18:00 Acetaminophen/ Hydrocodone Bitart ([place] (5/325)) 1 tab Q6H PRN PO .MOD PAIN 4- 6 Last administered on 04/10/19 03:07; Admin Dose 1 TAB; Start 03/23/19 at 18:00 Miscellaneous Information 1 ea NOTE XX ; Start 03/23/19 at 18:00 Glucose (Glutose) 15 gm Q15M PRN PO DECREASED GLUCOSE; Start 03/23/19 at 18:00 Glucose (Glutose) 22.5 gm Q15M PRN PO DECREASED GLUCOSE; Start 03/23/19 at 18:00 Dextrose (D50w Syringe) 25 ml Q15M PRN IV DECREASED GLUCOSE; Start 03/23/19 at 18:00 Dextrose (D50w Syringe) 50 ml Q15M PRN IV DECREASED GLUCOSE; Start 03/23/19 at 18:00 Glucagon (Glucagen) 1 mg Q15M PRN IM DECREASED GLUCOSE; Start 03/23/19 at 18:00 Glucose (Glutose) 15 gm Q15M PRN BUCCAL DECREASED GLUCOSE; Start 03/23/19 at 18:00 Hydralazine HCl (Apresoline) 10 mg Q4H PRN IV FOR SBP>170; Start 03/26/19 at 03:30 Albuterol/ Ipratropium (Duoneb) 3 ml Q2H RESP THERAPY PRN HHN sob; Start 03/26/19 at 12:30 Fluconazole (Diflucan) 100 mg DAILY PO Last administered on 04/21/19 08:30; Admin Dose 100 MG; Start 04/02/19 at 15:30 Acyclovir (Zovirax) 400 mg DAILY PO Last administered on 04/21/19 08:30; Admin Dose 400 MG; Start 04/03/19 at 09:00 Al Hydrox/Mg Hydrox/Simethicone (Mag-Al Plus) 30 ml Q6H PRN PO GASTROINTESTINAL UPSET Last administered on 04/14/19 22:43; Admin Dose 30 ML; Start 04/02/19 at 18:30 Carvedilol (Coreg) 12.5 mg BID PO Last administered on 04/21/19 08:29; Admin Dose 12.5 MG; Start 04/02/19 at 21:00 Dexamethasone (Maxidex 0.1% Oph) 2 drop BID BOTH EYES Last administered on 04/21/19 08:30; Admin Dose 2 DROP; Start 04/03/19 at 21:00 Lisinopril (Zestril) 20 mg BID PO Last administered on 04/21/19 08:30; Admin Dose 20 MG; Start 04/05/19 at 21:00 Famotidine (Pepcid) 20 mg DAILY PO Last administered on 04/21/19 08:29; Admin Dose 20 MG; Start 04/11/19 at 09:00 Magnesium Oxide (Mag-Ox 400) 400 mg BID PO Last administered on 04/21/19 08:29; Admin Dose 400 MG; Start 04/10/19 at 21:00 Loperamide HCl (Imodium Cap) 2 mg Q8H PRN PO DIARRHEA Last administered on 04/15/19 08:40; Admin Dose 2 MG; Start 04/13/19 at 09:00 Furosemide (Lasix) 20 mg DAILY PO Last administered on 04/21/19 08:29; Admin Dose 20 MG; Start 04/19/19 at 09:00 Insulin Aspart (Novolog Insulin Pen) 6 unit WITH MEALS SC Last administered on 04/21/19 12:34; Admin Dose 6 UNIT; Start 04/14/19 at 07:50 Insulin Glargine (Lantus) 18 units DAILY@2000 SC Last administered on 04/20/19 20:39; Admin Dose 18 UNITS; Start 04/13/19 at 20:00 Saccharomyces Boulardii (Florastor) 500 mg BID PO Last administered on 04/21/19 08:30; Admin Dose 500 MG; Start 04/15/19 at 11:00 Alteplase, Recombinant (Cathflo (Activase)) 2 mg MAY REPEAT X1 PRN CATHETER IF CATHETER REMAINS OCCULUDED; Start 04/16/19 at 15:00 Doxycycline Hyclate (Vibramycin) 100 mg BID PO ; Start 04/21/19 at 21:00 Levofloxacin (Levaquin) 250 mg DAILY@06 PO ; Start 04/22/19 at 06:00 TRI SOLER MD Apr 21, 2019 14:56
--- NOTE | 2019-04-21 15:41 | CONS ---
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 Diabetes Hypertension Continue maintenance diuretics and titrate as needed Blood pressure trend on the higher side, would start amlodipine Consultation Date/Type/Reason Admit Date/Time Mar 23, 2019 at 16:10 Initial Consult Date 03/24/19 Type of Consult Cardiology Requesting Provider: KATIE PACE NP Date/Time of Note DATE: 04/21/19 TIME: 15:40 24 HR Interval Summary Free Text/Dictation No shortness of breath, chest pain, palpitations Exam/Review of Systems Vital Signs Vitals Vital Signs Date Temp Pulse Resp B/P (MAP) Pulse Ox O2 O2 Flow FiO2 Time Delivery Rate 04/21/19 98.3 81 1 168/84 98 14:12 (112) 04/20/19 Room Air 14:00 Intake and Output 04/20/19 04/20/19 04/21/19 1515:00 23:00 07:00 IntakeIntake Total 300 ml 1390 ml 300 ml BalanceBalance 300 ml 1390 ml 300 ml Exam Constitutional: alert, oriented (No apparent distress) Head: normocephalic Respiratory: clear to auscultation, normal air movement Cardiovascular: regular rate and rhythm (S1-S2 heard) Gastrointestinal: soft, non-tender, bowel sounds Extremities: other (No edema) Labs Result Diagram: 04/21/19 0458 04/21/19 0458 Results 24hrs Laboratory Tests Test 04/20/19 17:39 04/20/19 20:33 04/21/19 04:58 04/21/19 08:27 Bedside Glucose 178 149 110 White Blood Count 4.5 #L Red Blood Count 3.29 L Hemoglobin 10.2 L Hematocrit 29.7 L Mean Corpuscular 90.3 Volume Mean Corpuscular 31.0 Hemoglobin Mean Corpuscular 34.3 Hemoglobin Concent Red Cell 12.2 Distribution Width Platelet Count 305 # Mean Platelet Volume 8.9 Immature 19.500 H Granulocytes % Neutrophils % Segmented 8 L Neutrophils % (Manual) Band Neutrophils % 8 H (Manual) Lymphocytes % Lymphocytes % 42 (Manual) Monocytes % Monocytes % (Manual) 28 H Eosinophils % Basophils % Metamyelocytes % 2 H (manual) Myelocytes % 5 H (Manual) Promyelocytes % 3 H (Manual) Blast Cells % 4.0 H (Manual) Nucleated Red Blood 0.0 Cells % Immature 0.880 H Granulocytes # Neutrophils # Neutrophils # 0.4 L (Manual) Band Neutrophils # 0.3 Lymphocytes (Manual) 1.8 Lymphocytes # Monocytes # Monocytes # (Manual) 1.2 H Eosinophils # Basophils # Metamyelocytes # 0.0 Myelocytes # 0.2 H Promyelocytes # 0.1 H Nucleated Red Blood Cells # Platelet Estimate NORMAL Giant Platelets 1 H Anisocytosis 1+ Microcytosis 1+ Sodium Level 137 Potassium Level 3.6 Chloride Level 100 Carbon Dioxide Level 31 Anion Gap 6 Blood Urea Nitrogen 10 Creatinine 0.60 L Est Glomerular > 60 Filtrat Rate mL/min Glucose Level 109 # Calcium Level 9.0 Phosphorus Level 5.5 H Magnesium Level 2.1 Test 04/21/19 12:30 04/21/19 13:35 Bedside Glucose 226 H Vancomycin Level 16.8 Trough Medications Medications Current Medications Insulin Aspart (Novolog Insulin Pen) NOVOLOG *MILD* ALGORI... WITH MEALS BEDTIME SC Last administered on 04/21/19 12:34; Admin Dose 3 UNIT; Start 03/23/19 at 18:00 IV Flush (NS 3 ml) 3 ml PER PROTOCOL IV Last administered on 04/08/19 05:29; Admin Dose 3 ML; Start 03/23/19 at 18:00 Ondansetron HCl (Zofran Inj) 4 mg Q6H PRN IV NAUSEA/VOMITING Last administered on 04/09/19 17:54; Admin Dose 4 MG; Start 03/23/19 at 18:00 Acetaminophen (Tylenol Tab) 650 mg Q6H PRN PO .PAIN 1-3 OR TEMP Last administered on 04/15/19 10:57; Admin Dose 650 MG; Start 03/23/19 at 18:00 Acetaminophen/ Hydrocodone Bitart ([place] (5/325)) 1 tab Q6H PRN PO .MOD PAIN 4- 6 Last administered on 04/10/19 03:07; Admin Dose 1 TAB; Start 03/23/19 at 18:00 Miscellaneous Information 1 ea NOTE XX ; Start 03/23/19 at 18:00 Glucose (Glutose) 15 gm Q15M PRN PO DECREASED GLUCOSE; Start 03/23/19 at 18:00 Glucose (Glutose) 22.5 gm Q15M PRN PO DECREASED GLUCOSE; Start 03/23/19 at 18:00 Dextrose (D50w Syringe) 25 ml Q15M PRN IV DECREASED GLUCOSE; Start 03/23/19 at 18:00 Dextrose (D50w Syringe) 50 ml Q15M PRN IV DECREASED GLUCOSE; Start 03/23/19 at 18:00 Glucagon (Glucagen) 1 mg Q15M PRN IM DECREASED GLUCOSE; Start 03/23/19 at 18:00 Glucose (Glutose) 15 gm Q15M PRN BUCCAL DECREASED GLUCOSE; Start 03/23/19 at 18:00 Hydralazine HCl (Apresoline) 10 mg Q4H PRN IV FOR SBP>170; Start 03/26/19 at 03:30 Albuterol/ Ipratropium (Duoneb) 3 ml Q2H RESP THERAPY PRN HHN sob; Start 03/26/19 at 12:30 Fluconazole (Diflucan) 100 mg DAILY PO Last administered on 04/21/19 08:30; Admin Dose 100 MG; Start 04/02/19 at 15:30 Acyclovir (Zovirax) 400 mg DAILY PO Last administered on 04/21/19 08:30; Admin Dose 400 MG; Start 04/03/19 at 09:00 Al Hydrox/Mg Hydrox/Simethicone (Mag-Al Plus) 30 ml Q6H PRN PO GASTROINTESTINAL UPSET Last administered on 04/14/19 22:43; Admin Dose 30 ML; Start 04/02/19 at 18:30 Carvedilol (Coreg) 12.5 mg BID PO Last administered on 04/21/19 08:29; Admin Dose 12.5 MG; Start 04/02/19 at 21:00 Dexamethasone (Maxidex 0.1% Oph) 2 drop BID BOTH EYES Last administered on 04/21/19 08:30; Admin Dose 2 DROP; Start 04/03/19 at 21:00 Lisinopril (Zestril) 20 mg BID PO Last administered on 04/21/19 08:30; Admin Dose 20 MG; Start 04/05/19 at 21:00 Famotidine (Pepcid) 20 mg DAILY PO Last administered on 04/21/19 08:29; Admin Dose 20 MG; Start 04/11/19 at 09:00 Magnesium Oxide (Mag-Ox 400) 400 mg BID PO Last administered on 04/21/19 08:29; Admin Dose 400 MG; Start 04/10/19 at 21:00 Loperamide HCl (Imodium Cap) 2 mg Q8H PRN PO DIARRHEA Last administered on 04/15/19 08:40; Admin Dose 2 MG; Start 04/13/19 at 09:00 Furosemide (Lasix) 20 mg DAILY PO Last administered on 04/21/19 08:29; Admin Dose 20 MG; Start 04/19/19 at 09:00 Insulin Aspart (Novolog Insulin Pen) 6 unit WITH MEALS SC Last administered on 04/21/19 12:34; Admin Dose 6 UNIT; Start 04/14/19 at 07:50 Insulin Glargine (Lantus) 18 units DAILY@2000 SC Last administered on 04/20/19 20:39; Admin Dose 18 UNITS; Start 04/13/19 at 20:00 Saccharomyces Boulardii (Florastor) 500 mg BID PO Last administered on 04/21/19 08:30; Admin Dose 500 MG; Start 04/15/19 at 11:00 Alteplase, Recombinant (Cathflo (Activase)) 2 mg MAY REPEAT X1 PRN CATHETER IF CATHETER REMAINS OCCULUDED; Start 04/16/19 at 15:00 Doxycycline Hyclate (Vibramycin) 100 mg BID PO ; Start 04/21/19 at 21:00 Levofloxacin (Levaquin) 250 mg DAILY@06 PO ; Start 04/22/19 at 06:00 Jun Ayala DO Apr 21, 2019 15:40
[2019-04-21 20:55] VITALS: BP 166/82; PULSE 80; RESP 18
[2019-04-21] MEDS: INSULIN GLARGINE [LANTus] (100 UNITS/ML) SYG SC SCH (21:01)
[2019-04-21] MEDS: DOXYCYCLINE 100 MG TAB PO SCH (21:02)
[2019-04-21] MEDS: AMLODIPINE 2.5 MG TAB PO SCH (21:03)
[2019-04-22 01:55] VITALS: BP 157/87; PULSE 84; RESP 19
[2019-04-22] MEDS: LEVOFLOXACIN 250 MG TAB PO SCH (05:46)
[2019-04-22 07:40] VITALS: BP 158/89; PULSE 78; RESP 18
[2019-04-22] MEDS: INSULIN ASPART [NOVOLOG] 3 ML PEN SC SCH ×7 (09:27→20:28)
[2019-04-22] MEDS: DOXYCYCLINE 100 MG TAB PO SCH ×2 (09:28→20:23)
[2019-04-22] MEDS: FLUCONAZOLE 100 MG TAB PO SCH (09:29)
[2019-04-22] MEDS: SACCHAROMYCES BOULARDII 250 MG CAP PO SCH ×2 (09:29→20:24)
[2019-04-22] MEDS: FAMOTIDINE 20 MG TAB PO SCH (09:29)
[2019-04-22] MEDS: FUROSEMIDE 20 MG TAB PO SCH (09:29)
[2019-04-22] MEDS: ACYCLOVIR 400 MG TAB PO SCH (09:29)
[2019-04-22] MEDS: LISINOPRIL 20 MG TAB PO SCH ×2 (09:30→20:24)
[2019-04-22] MEDS: MAGNESIUM OXIDE 400 MG TAB PO SCH ×2 (09:30→20:23)
[2019-04-22] MEDS: AMLODIPINE 2.5 MG TAB PO SCH (09:30)
[2019-04-22] MEDS: DEXAMETHASONE 0.1% 5 ML OPH BOTH EYES SCH ×2 (09:31→20:24)
--- NOTE | 2019-04-22 11:16 | CONS ---
Assessment/Plan Assessment/Plan Hospital Course (Demo Recall) All noted, no events over night, no fevers Indwelling's: Right IJ Port-A-Cath Blood cultures and urine culture negative Antimicrobials: Levaquin, Doxycycline, fluconazole, acyclovir Physical examination: Well-developed middle-aged man who is alert in no distress head atraumatic normocephalic sclera nonicteric vehicle mucosa pink neck is supple chest rise symmetrical breath sounds clear Heart S1-S2 abdomen soft bowel sounds present extremities without cyanosis edema Assessment: 1. S/p neutropenic fevers 2. AML, newly diagnosed 3. Diabetes 4. Hypertension 5. Pancytopenia Plan: Remains stable, continue present Consultation Date/Type/Reason Admit Date/Time Mar 23, 2019 at 16:10 Initial Consult Date 03/24/19 Type of Consult id Requesting Provider: KATIE PACE NP Date/Time of Note DATE: 04/22/19 TIME: 11:15 Exam/Review of Systems Exam Vitals Vital Signs Date Temp Pulse Resp B/P (MAP) Pulse Ox O2 O2 Flow FiO2 Time Delivery Rate 04/22/19 98.8 78 18 158/89 97 Room Air 07:40 (112) Intake and Output 04/21/19 04/21/19 04/22/19 1515:00 23:00 07:00 IntakeIntake Total 250 ml BalanceBalance 250 ml Results Result Diagram: 04/22/19 0430 04/22/19 0430 Results 24hrs Laboratory Tests Test 04/21/19 12:30 04/21/19 13:35 04/21/19 17:38 04/21/19 20:58 Bedside Glucose 226 H 185 168 Vancomycin Level 16.8 Trough Test 04/22/19 04:30 04/22/19 05:50 04/22/19 08:39 White Blood Count 8.0 # Red Blood Count 3.60 L Hemoglobin 11.0 L Hematocrit 32.9 L Mean Corpuscular 91.4 Volume Mean Corpuscular 30.6 Hemoglobin Mean Corpuscular 33.4 Hemoglobin Concen t Red Cell 12.4 Distribution Width Platelet Count 451 #H Mean Platelet 8.7 Volume Immature 24.400 H Granulocytes % Neutrophils % Segmented 18 L Neutrophils % (Manual) Band Neutrophils 6 H % (Manual) Lymphocytes % Lymphocytes % 27 (Manual) Reactive 3 H Lymphocytes % (Manual) Monocytes % Monocytes % 26 H (Manual) Eosinophils % Basophils % Basophils % 1 (Manual) Metamyelocytes % 10 H (manual) Myelocytes % 7 H (Manual) Blast Cells % 2.0 H (Manual) Nucleated Red 0.0 Blood Cells % Immature 1.950 H Granulocytes # Neutrophils # Neutrophils # 1.5 L (Manual) Band Neutrophils 0.4 # Lymphocytes 2.1 (Manual) Lymphocytes # Reactive 0.2 H Lymphocytes # Monocytes # Monocytes # 2.0 H (Manual) Eosinophils # Basophils # Basophils # 0.0 (Manual) Metamyelocytes # 0.8 H Myelocytes # 0.5 H Nucleated Red Blood Cells # Toxic Granulation 1+ Platelet Estimate INCREASED Giant Platelets 1 H Sodium Level 138 Potassium Level 4.0 Chloride Level 100 Carbon Dioxide 30 Level Anion Gap 8 Blood Urea 14 Nitrogen Creatinine 0.57 L Est Glomerular > 60 Filtrat Rate mL/min Glucose Level 168 Calcium Level 9.5 Phosphorus Level 5.6 H Magnesium Level 2.1 Lab Scanned BLOOD TRANSFUSIO Report N Bedside Glucose 171 Medications Medication Current Medications Insulin Aspart (Novolog Insulin Pen) NOVOLOG *MILD* ALGORI... WITH MEALS BEDTIME SC Last administered on 04/22/19 09:27; Admin Dose 1 UNIT; Start 03/23/19 at 18:00 IV Flush (NS 3 ml) 3 ml PER PROTOCOL IV Last administered on 04/08/19 05:29; Admin Dose 3 ML; Start 03/23/19 at 18:00 Ondansetron HCl (Zofran Inj) 4 mg Q6H PRN IV NAUSEA/VOMITING Last administered on 04/09/19 17:54; Admin Dose 4 MG; Start 03/23/19 at 18:00 Acetaminophen (Tylenol Tab) 650 mg Q6H PRN PO .PAIN 1-3 OR TEMP Last administered on 04/15/19 10:57; Admin Dose 650 MG; Start 03/23/19 at 18:00 Acetaminophen/ Hydrocodone Bitart ([place] (5/325)) 1 tab Q6H PRN PO .MOD PAIN 4- 6 Last administered on 04/10/19 03:07; Admin Dose 1 TAB; Start 03/23/19 at 18:00 Miscellaneous Information 1 ea NOTE XX ; Start 03/23/19 at 18:00 Glucose (Glutose) 15 gm Q15M PRN PO DECREASED GLUCOSE; Start 03/23/19 at 18:00 Glucose (Glutose) 22.5 gm Q15M PRN PO DECREASED GLUCOSE; Start 03/23/19 at 18:00 Dextrose (D50w Syringe) 25 ml Q15M PRN IV DECREASED GLUCOSE; Start 03/23/19 at 18:00 Dextrose (D50w Syringe) 50 ml Q15M PRN IV DECREASED GLUCOSE; Start 03/23/19 at 18:00 Glucagon (Glucagen) 1 mg Q15M PRN IM DECREASED GLUCOSE; Start 03/23/19 at 18:00 Glucose (Glutose) 15 gm Q15M PRN BUCCAL DECREASED GLUCOSE; Start 03/23/19 at 18:00 Hydralazine HCl (Apresoline) 10 mg Q4H PRN IV FOR SBP>170; Start 03/26/19 at 03:30 Albuterol/ Ipratropium (Duoneb) 3 ml Q2H RESP THERAPY PRN HHN sob; Start 03/26/19 at 12:30 Fluconazole (Diflucan) 100 mg DAILY PO Last administered on 04/22/19 09:29; Admin Dose 100 MG; Start 04/02/19 at 15:30 Acyclovir (Zovirax) 400 mg DAILY PO Last administered on 04/22/19 09:29; Admin Dose 400 MG; Start 04/03/19 at 09:00 Al Hydrox/Mg Hydrox/Simethicone (Mag-Al Plus) 30 ml Q6H PRN PO GASTROINTESTINAL UPSET Last administered on 04/14/19 22:43; Admin Dose 30 ML; Start 04/02/19 at 18:30 Carvedilol (Coreg) 12.5 mg BID PO Last administered on 04/22/19 09:29; Admin Dose 12.5 MG; Start 04/02/19 at 21:00 Dexamethasone (Maxidex 0.1% Oph) 2 drop BID BOTH EYES Last administered on 04/22/19 09:31; Admin Dose 2 DROP; Start 04/03/19 at 21:00 Lisinopril (Zestril) 20 mg BID PO Last administered on 04/22/19 09:30; Admin Dose 20 MG; Start 04/05/19 at 21:00 Famotidine (Pepcid) 20 mg DAILY PO Last administered on 04/22/19 09:29; Admin Dose 20 MG; Start 04/11/19 at 09:00 Magnesium Oxide (Mag-Ox 400) 400 mg BID PO Last administered on 04/22/19 0 9:30; Admin Dose 400 MG; Start 04/10/19 at 21:00 Loperamide HCl (Imodium Cap) 2 mg Q8H PRN PO DIARRHEA Last administered on 04/15/19 08:40; Admin Dose 2 MG; Start 04/13/19 at 09:00 Furosemide (Lasix) 20 mg DAILY PO Last administered on 04/22/19 09:29; Admin Dose 20 MG; Start 04/19/19 at 09:00 Insulin Aspart (Novolog Insulin Pen) 6 unit WITH MEALS SC Last administered on 04/22/19 09:27; Admin Dose 6 UNIT; Start 04/14/19 at 07:50 Insulin Glargine (Lantus) 18 units DAILY@2000 SC Last administered on 04/21/19 21:01; Admin Dose 18 UNITS; Start 04/13/19 at 20:00 Saccharomyces Boulardii (Florastor) 500 mg BID PO Last administered on 04/22/19 09:29; Admin Dose 500 MG; Start 04/15/19 at 11:00 Alteplase, Recombinant (Cathflo (Activase)) 2 mg MAY REPEAT X1 PRN CATHETER IF CATHETER REMAINS OCCULUDED; Start 04/16/19 at 15:00 Doxycycline Hyclate (Vibramycin) 100 mg BID PO Last administered on 04/22/19 09:28; Admin Dose 100 MG; Start 04/21/19 at 21:00 Levofloxacin (Levaquin) 250 mg DAILY@06 PO Last administered on 04/22/19 05:46; Admin Dose 250 MG; Start 04/22/19 at 06:00 Amlodipine Besylate (Norvasc) 2.5 mg BID PO Last administered on 04/22/19 09:30; Admin Dose 2.5 MG; Start 04/21/19 at 21:00 JEANNIE NICHOLSON NP Apr 22, 2019 11:16
--- NOTE | 2019-04-22 14:58 | PN ---
Date/Time of Note Date/Time of Note DATE: 04/22/19 TIME: 14:43 Assessment/Plan VTE Prophylaxis Risk score (from Ns)>0 risk: 5 SCD applied (from [facility] [place]): Yes SCD contraindicated: low risk/ambulating Pharmacological prophylaxis: NA/contraindicated Lines/Catheters IV C[facility] Type [facility]from [facility] [place] Urinary Cath still in place: No Assessment/Plan Hospital Course Assessment and plan 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 Inadequate response to 7+3 regimen. gemtuzumab ozogamicin (Mylotarg) per oncologist monitor CBC 2. Neutropenic fevers - stable On antimicrobials as per ID. Reyes cultures remain negative. antipyretic prn 3. Diabetes mellitus type 2. Hemoglobin A1c 9.6. on insulin regimen. Will adjust as needed. 4. Hypertension. Continue antihypertensives. 5. Cardiomyopathy. EF of 35-40%. Continue cardiovascular medications Cardiology following. 6. Acute CHF exacerbation, systolic dysfunction. continue on diuretics monitor renal panel Disposition and plan. Monitor CBC. f/u chemo regimen per oncology. continue to monitor inhouse. Discussed plan of care with Dr. Abreu Result Diagram: 04/22/19 0430 04/22/19 0430 Results 24hrs Laboratory Tests Test 04/21/19 17:38 04/21/19 20:58 04/22/19 04:30 04/22/19 05:50 Bedside Glucose 185 168 White Blood Count 8.0 # Red Blood Count 3.60 L Hemoglobin 11.0 L Hematocrit 32.9 L Mean Corpuscular 91.4 Volume Mean Corpuscular 30.6 Hemoglobin Mean Corpuscular 33.4 Hemoglobin Concen t Red Cell 12.4 Distribution Width Platelet Count 451 #H Mean Platelet 8.7 Volume Immature 24.400 H Granulocytes % Neutrophils % Segmented 18 L Neutrophils % (Manual) Band Neutrophils 6 H % (Manual) Lymphocytes % Lymphocytes % 27 (Manual) Reactive 3 H Lymphocytes % (Manual) Monocytes % Monocytes % 26 H (Manual) Eosinophils % Basophils % Basophils % 1 (Manual) Metamyelocytes % 10 H (manual) Myelocytes % 7 H (Manual) Blast Cells % 2.0 H (Manual) Nucleated Red 0.0 Blood Cells % Immature 1.950 H Granulocytes # Neutrophils # Neutrophils # 1.5 L (Manual) Band Neutrophils 0.4 # Lymphocytes 2.1 (Manual) Lymphocytes # Reactive 0.2 H Lymphocytes # Monocytes # Monocytes # 2.0 H (Manual) Eosinophils # Basophils # Basophils # 0.0 (Manual) Metamyelocytes # 0.8 H Myelocytes # 0.5 H Nucleated Red Blood Cells # Toxic Granulation 1+ Platelet Estimate INCREASED Giant Platelets 1 H Sodium Level 138 Potassium Level 4.0 Chloride Level 100 Carbon Dioxide 30 Level Anion Gap 8 Blood Urea 14 Nitrogen Creatinine 0.57 L Est Glomerular > 60 Filtrat Rate mL/min Glucose Level 168 Calcium Level 9.5 Phosphorus Level 5.6 H Magnesium Level 2.1 Lab Scanned BLOOD TRANSFUSIO Report N Test 04/22/19 08:39 04/22/19 12:59 Bedside Glucose 171 188 Subjective 24 Hr Interval Summary Free Text/Dictation Ambulating around room. Denies any pain. No nausea reported. Exam/Review of Systems Exam Vitals Vital Signs Date Temp Pulse Resp B/P (MAP) Pulse Ox O2 O2 Flow FiO2 Time Delivery Rate 04/22/19 98.8 78 18 158/89 97 Room Air 07:40 (112) Intake and Output 04/21/19 04/21/19 04/22/19 1414:59 22:59 06:59 IntakeIntake Total 250 ml BalanceBalance 250 ml Constitutional: alert, oriented Psych: nl mood/affect Head: normocephalic Neck: supple, non-tender Respiratory: clear to auscultation, normal air movement Cardiovascular: regular rate and rhythm Gastrointestinal: soft, non-tender Neurological: COKE DRAWER II-XII intact, nl mental status, nl speech Skin: nl turgor Results Results 24hrs Laboratory Tests Test 04/21/19 17:38 04/21/19 20:58 04/22/19 04:30 04/22/19 05:50 Bedside Glucose 185 168 White Blood Count 8.0 # Red Blood Count 3.60 L Hemoglobin 11.0 L Hematocrit 32.9 L Mean Corpuscular 91.4 Volume Mean Corpuscular 30.6 Hemoglobin Mean Corpuscular 33.4 Hemoglobin Concen t Red Cell 12.4 Distribution Width Platelet Count 451 #H Mean Platelet 8.7 Volume Immature 24.400 H Granulocytes % Neutrophils % Segmented 18 L Neutrophils % (Manual) Band Neutrophils 6 H % (Manual) Lymphocytes % Lymphocytes % 27 (Manual) Reactive 3 H Lymphocytes % (Manual) Monocytes % Monocytes % 26 H (Manual) Eosinophils % Basophils % Basophils % 1 (Manual) Metamyelocytes % 10 H (manual) Myelocytes % 7 H (Manual) Blast Cells % 2.0 H (Manual) Nucleated Red 0.0 Blood Cells % Immature 1.950 H Granulocytes # Neutrophils # Neutrophils # 1.5 L (Manual) Band Neutrophils 0.4 # Lymphocytes 2.1 (Manual) Lymphocytes # Reactive 0.2 H Lymphocytes # Monocytes # Monocytes # 2.0 H (Manual) Eosinophils # Basophils # Basophils # 0.0 (Manual) Metamyelocytes # 0.8 H Myelocytes # 0.5 H Nucleated Red Blood Cells # Toxic Granulation 1+ Platelet Estimate INCREASED Giant Platelets 1 H Sodium Level 138 Potassium Level 4.0 Chloride Level 100 Carbon Dioxide 30 Level Anion Gap 8 Blood Urea 14 Nitrogen Creatinine 0.57 L Est Glomerular > 60 Filtrat Rate mL/min Glucose Level 168 Calcium Level 9.5 Phosphorus Level 5.6 H Magnesium Level 2.1 Lab Scanned BLOOD TRANSFUSIO Report N Test 04/22/19 08:39 04/22/19 12:59 Bedside Glucose 171 188 Medications Medication Current Medications Insulin Aspart (Novolog Insulin Pen) NOVOLOG *MILD* ALGORI... WITH MEALS BEDTIME SC Last administered on 04/22/19 13:02; Admin Dose 2 UNIT; Start 03/23/19 at 18:00 IV Flush (NS 3 ml) 3 ml PER PROTOCOL IV Last administered on 04/08/19 05:29; Admin Dose 3 ML; Start 03/23/19 at 18:00 Ondansetron HCl (Zofran Inj) 4 mg Q6H PRN IV NAUSEA/VOMITING Last administered on 04/09/19 17:54; Admin Dose 4 MG; Start 03/23/19 at 18:00 Acetaminophen (Tylenol Tab) 650 mg Q6H PRN PO .PAIN 1-3 OR TEMP Last administered on 04/15/19 10:57; Admin Dose 650 MG; Start 03/23/19 at 18:00 Acetaminophen/ Hydrocodone Bitart ([place] (5/325)) 1 tab Q6H PRN PO .MOD PAIN 4- 6 Last administered on 04/10/19 03:07; Admin Dose 1 TAB; Start 03/23/19 at 18:00 Miscellaneous Information 1 ea NOTE XX ; Start 03/23/19 at 18:00 Glucose (Glutose) 15 gm Q15M PRN PO DECREASED GLUCOSE; Start 03/23/19 at 18:00 Glucose (Glutose) 22.5 gm Q15M PRN PO DECREASED GLUCOSE; Start 03/23/19 at 18:00 Dextrose (D50w Syringe) 25 ml Q15M PRN IV DECREASED GLUCOSE; Start 03/23/19 at 18:00 Dextrose (D50w Syringe) 50 ml Q15M PRN IV DECREASED GLUCOSE; Start 03/23/19 at 18:00 Glucagon (Glucagen) 1 mg Q15M PRN IM DECREASED GLUCOSE; Start 03/23/19 at 18:00 Glucose (Glutose) 15 gm Q15M PRN BUCCAL DECREASED GLUCOSE; Start 03/23/19 at 18:00 Hydralazine HCl (Apresoline) 10 mg Q4H PRN IV FOR SBP>170; Start 03/26/19 at 03:30 Albuterol/ Ipratropium (Duoneb) 3 ml Q2H RESP THERAPY PRN HHN sob; Start 03/26/19 at 12:30 Fluconazole (Diflucan) 100 mg DAILY PO Last administered on 04/22/19 09:29; Admin Dose 100 MG; Start 04/02/19 at 15:30 Acyclovir (Zovirax) 400 mg DAILY PO Last administered on 04/22/19 09:29; Admin Dose 400 MG; Start 04/03/19 at 09:00 Al Hydrox/Mg Hydrox/Simethicone (Mag-Al Plus) 30 ml Q6H PRN PO GASTROINTESTINAL UPSET Last administered on 04/14/19 22:43; Admin Dose 30 ML; Start 04/02/19 at 18:30 Carvedilol (Coreg) 12.5 mg BID PO Last administered on 04/22/19 09:29; Admin Dose 12.5 MG; Start 04/02/19 at 21:00 Dexamethasone (Maxidex 0.1% Oph) 2 drop BID BOTH EYES Last administered on 04/22/19 09:31; Admin Dose 2 DROP; Start 04/03/19 at 21:00 Lisinopril (Zestril) 20 mg BID PO Last administered on 04/22/19 09:30; Admin Dose 20 MG; Start 04/05/19 at 21:00 Famotidine (Pepcid) 20 mg DAILY PO Last administered on 04/22/19 09:29; Admin Dose 20 MG; Start 04/11/19 at 09:00 Magnesium Oxide (Mag-Ox 400) 400 mg BID PO Last administered on 04/22/19 09:30; Admin Dose 400 MG; Start 04/10/19 at 21:00 Loperamide HCl (Imodium Cap) 2 mg Q8H PRN PO DIARRHEA Last administered on 04/15/19 08:40; Admin Dose 2 MG; Start 04/13/19 at 09:00 Furosemide (Lasix) 20 mg DAILY PO Last administered on 04/22/19 09:29; Admin Dose 20 MG; Start 04/19/19 at 09:00 Insulin Aspart (Novolog Insulin Pen) 6 unit WITH MEALS SC Last administered on 04/22/19 13:01; Admin Dose 6 UNIT; Start 04/14/19 at 07:50 Insulin Glargine (Lantus) 18 units DAILY@2000 SC Last administered on 04/21/19 21:01; Admin Dose 18 UNITS; Start 04/13/19 at 20:00 Saccharomyces Boulardii (Florastor) 500 mg BID PO Last administered on 04/22/19 09:29; Admin Dose 500 MG; Start 04/15/19 at 11:00 Alteplase, Recombinant (Cathflo (Activase)) 2 mg MAY REPEAT X1 PRN CATHETER IF CATHETER REMAINS OCCULUDED; Start 04/16/19 at 15:00 Doxycycline Hyclate (Vibramycin) 100 mg BID PO Last administered on 04/22/19 09:28; Admin Dose 100 MG; Start 04/21/19 at 21:00 Levofloxacin (Levaquin) 250 mg DAILY@06 PO Last administered on 04/22/19 05:46; Admin Dose 250 MG; Start 04/22/19 at 06:00 Amlodipine Besylate (Norvasc) 2.5 mg BID PO Last administered on 04/22/19 09:30; Admin Dose 2.5 MG; Start 04/21/19 at 21:00 JAY REEVES NP Apr 22, 2019 14:58
[2019-04-22 16:56] VITALS: BP 168/86; PULSE 72; RESP 18
--- NOTE | 2019-04-22 18:20 | PN ---
Date/Time of Note Date/Time of Note DATE: 04/22/19 TIME: 18:01 Assessment/Plan VTE Prophylaxis Risk score (from Ns)>0 risk: 5 SCD applied (from [facility]): Yes SCD contraindicated: low risk/ambulating Pharmacological prophylaxis: NA/contraindicated Pharm contraindication: other (ambulating) Lines/Catheters IV Catheter Type (from [facility]): [place] line still needed: Yes Urinary Cath still in place: No Assessment/Plan Assessment/Plan Pt is clinically doing well now but the smear shows blasts that appeared after about two weeks into his 7+3 induction. Note that he was FLT3 negative but 98% of the cells were CD33+. Mylotarg was considered but we are not able to get it here. I also expect that a bone marrow transplant will be a consideration. He is straight [employer], so I suggested that he collect records and go to [facility]. I will not be able to talk to anyone hanyight, but I will be glad to talk to whomever I need to to get him transferred to a facility that can treat him. He is 54 years old and previously in very good health. Fortunately he is doing well now, so discharge is safe but the disease will progress rapidly over the next few weeks if it is not addressed. Note that he has a [place] catheter in place. Home care of that catheter should be arranged prior to discharge. Result Diagram: 04/22/19 0430 04/22/19 0430 Results 24hrs Laboratory Tests Test 04/21/19 20:58 04/22/19 04:30 04/22/19 05:50 04/22/19 08:39 Bedside Glucose 168 171 White Blood Count 8.0 # Red Blood Count 3.60 L Hemoglobin 11.0 L Hematocrit 32.9 L Mean Corpuscular 91.4 Volume Mean Corpuscular 30.6 Hemoglobin Mean Corpuscular 33.4 Hemoglobin Concen t Red Cell 12.4 Distribution Width Platelet Count 451 #H Mean Platelet 8.7 Volume Immature 24.400 H Granulocytes % Neutrophils % Segmented 18 L Neutrophils % (Manual) Band Neutrophils 6 H % (Manual) Lymphocytes % Lymphocytes % 27 (Manual) Reactive 3 H Lymphocytes % (Manual) Monocytes % Monocytes % 26 H (Manual) Eosinophils % Basophils % Basophils % 1 (Manual) Metamyelocytes % 10 H (manual) Myelocytes % 7 H (Manual) Blast Cells % 2.0 H (Manual) Nucleated Red 0.0 Blood Cells % Immature 1.950 H Granulocytes # Neutrophils # Neutrophils # 1.5 L (Manual) Band Neutrophils 0.4 # Lymphocytes 2.1 (Manual) Lymphocytes # Reactive 0.2 H Lymphocytes # Monocytes # Monocytes # 2.0 H (Manual) Eosinophils # Basophils # Basophils # 0.0 (Manual) Metamyelocytes # 0.8 H Myelocytes # 0.5 H Nucleated Red Blood Cells # Toxic Granulation 1+ Platelet Estimate INCREASED Giant Platelets 1 H Sodium Level 138 Potassium Level 4.0 Chloride Level 100 Carbon Dioxide 30 Level Anion Gap 8 Blood Urea 14 Nitrogen Creatinine 0.57 L Est Glomerular > 60 Filtrat Rate mL/min Glucose Level 168 Calcium Level 9.5 Phosphorus Level 5.6 H Magnesium Level 2.1 Lab Scanned BLOOD TRANSFUSIO Report N Test 04/22/19 12:59 04/22/19 17:34 Bedside Glucose 188 194 Subjective 24 Hr Interval Summary Free Text/Dictation Pt is eating and walking. He feels alright. Exam/Review of Systems Exam Vitals Vital Signs Date Temp Pulse Resp B/P (MAP) Pulse Ox O2 O2 Flow FiO2 Time Delivery Rate 04/22/19 98.4 72 18 168/86 93 Room Air 16:56 (113) Intake and Output 04/21/19 04/21/19 04/22/19 1515:00 23:00 07:00 IntakeIntake Total 250 ml BalanceBalance 250 ml Constitutional: alert, oriented Head: normocephalic Eyes: nl conjunctiva ENMT: nl external ears & nose Neck: supple Respiratory: clear to auscultation Cardiovascular: regular rate and rhythm Gastrointestinal: soft, non-tender Neurological: nl mental status, nl speech, nl strength Results Results 24hrs Laboratory Tests Test 04/21/19 20:58 04/22/19 04:30 04/22/19 05:50 04/22/19 08:39 Bedside Glucose 168 171 White Blood Count 8.0 # Red Blood Count 3.60 L Hemoglobin 11.0 L Hematocrit 32.9 L Mean Corpuscular 91.4 Volume Mean Corpuscular 30.6 Hemoglobin Mean Corpuscular 33.4 Hemoglobin Concen t Red Cell 12.4 Distribution Width Platelet Count 451 #H Mean Platelet 8.7 Volume Immature 24.400 H Granulocytes % Neutrophils % Segmented 18 L Neutrophils % (Manual) Band Neutrophils 6 H % (Manual) Lymphocytes % Lymphocytes % 27 (Manual) Reactive 3 H Lymphocytes % (Manual) Monocytes % Monocytes % 26 H (Manual) Eosinophils % Basophils % Basophils % 1 (Manual) Metamyelocytes % 10 H (manual) Myelocytes % 7 H (Manual) Blast Cells % 2.0 H (Manual) Nucleated Red 0.0 Blood Cells % Immature 1.950 H Granulocytes # Neutrophils # Neutrophils # 1.5 L (Manual) Band Neutrophils 0.4 # Lymphocytes 2.1 (Manual) Lymphocytes # Reactive 0.2 H Lymphocytes # Monocytes # Monocytes # 2.0 H (Manual) Eosinophils # Basophils # Basophils # 0.0 (Manual) Metamyelocytes # 0.8 H Myelocytes # 0.5 H Nucleated Red Blood Cells # Toxic Granulation 1+ Platelet Estimate INCREASED Giant Platelets 1 H Sodium Level 138 Potassium Level 4.0 Chloride Level 100 Carbon Dioxide 30 Level Anion Gap 8 Blood Urea 14 Nitrogen Creatinine 0.57 L Est Glomerular > 60 Filtrat Rate mL/min Glucose Level 168 Calcium Level 9.5 Phosphorus Level 5.6 H Magnesium Level 2.1 Lab Scanned BLOOD TRANSFUSIO Report N Test 04/22/19 12:59 04/22/19 17:34 Bedside Glucose 188 194 Medications Medication Current Medications Insulin Aspart (Novolog Insulin Pen) NOVOLOG *MILD* ALGORI... WITH MEALS BEDTIME SC Last administered on 04/22/19 17:36; Admin Dose 2 UNIT; Start 03/23/19 at 18:00 IV Flush (NS 3 ml) 3 ml PER PROTOCOL IV Last administered on 04/08/19 05:29; Admin Dose 3 ML; Start 03/23/19 at 18:00 Ondansetron HCl (Zofran Inj) 4 mg Q6H PRN IV NAUSEA/VOMITING Last administered on 04/09/19 17:54; Admin Dose 4 MG; Start 03/23/19 at 18:00 Acetaminophen (Tylenol Tab) 650 mg Q6H PRN PO .PAIN 1-3 OR TEMP Last administered on 04/15/19 10:57; Admin Dose 650 MG; Start 03/23/19 at 18:00 Acetaminophen/ Hydrocodone Bitart ([place] (5/325)) 1 tab Q6H PRN PO .MOD PAIN 4- 6 Last administered on 04/10/19 03:07; Admin Dose 1 TAB; Start 03/23/19 at 18:00 Miscellaneous Information 1 ea NOTE XX ; Start 03/23/19 at 18:00 Glucose (Glutose) 15 gm Q15M PRN PO DECREASED GLUCOSE; Start 03/23/19 at 18:00 Glucose (Glutose) 22.5 gm Q15M PRN PO DECREASED GLUCOSE; Start 03/23/19 at 18:00 Dextrose (D50w Syringe) 25 ml Q15M PRN IV DECREASED GLUCOSE; Start 03/23/19 at 18:00 Dextrose (D50w Syringe) 50 ml Q15M PRN IV DECREASED GLUCOSE; Start 03/23/19 at 18:00 Glucagon (Glucagen) 1 mg Q15M PRN IM DECREASED GLUCOSE; Start 03/23/19 at 18:00 Glucose (Glutose) 15 gm Q15M PRN BUCCAL DECREASED GLUCOSE; Start 03/23/19 at 18:00 Hydralazine HCl (Apresoline) 10 mg Q4H PRN IV FOR SBP>170; Start 03/26/19 at 03:30 Albuterol/ Ipratropium (Duoneb) 3 ml Q2H RESP THERAPY PRN HHN sob; Start 03/26/19 at 12:30 Fluconazole (Diflucan) 100 mg DAILY PO Last administered on 04/22/19 09:29; Admin Dose 100 MG; Start 04/02/19 at 15:30 Acyclovir (Zovirax) 400 mg DAILY PO Last administered on 04/22/19 09:29; Admin Dose 400 MG; Start 04/03/19 at 09:00 Al Hydrox/Mg Hydrox/Simethicone (Mag-Al Plus) 30 ml Q6H PRN PO GASTROINTESTINAL UPSET Last administered on 04/14/19 22:43; Admin Dose 30 ML; Start 04/02/19 at 18:30 Carvedilol (Coreg) 12.5 mg BID PO Last administered on 04/22/19 09:29; Admin Dose 12.5 MG; Start 04/02/19 at 21:00 Dexamethasone (Maxidex 0.1% Oph) 2 drop BID BOTH EYES Last administered on 04/22/19 09:31; Admin Dose 2 DROP; Start 04/03/19 at 21:00 Lisinopril (Zestril) 20 mg BID PO Last administered on 04/22/19 09:30; Admin Dose 20 MG; Start 04/05/19 at 21:00 Famotidine (Pepcid) 20 mg DAILY PO Last administered on 04/22/19 09:29; Admin Dose 20 MG; Start 04/11/19 at 09:00 Magnesium Oxide (Mag-Ox 400) 400 mg BID PO Last administered on 04/22/19 09: 30; Admin Dose 400 MG; Start 04/10/19 at 21:00 Loperamide HCl (Imodium Cap) 2 mg Q8H PRN PO DIARRHEA Last administered on 04/15/19 08:40; Admin Dose 2 MG; Start 04/13/19 at 09:00 Furosemide (Lasix) 20 mg DAILY PO Last administered on 04/22/19 09:29; Admin Dose 20 MG; Start 04/19/19 at 09:00 Insulin Aspart (Novolog Insulin Pen) 6 unit WITH MEALS SC Last administered on 04/22/19 17:37; Admin Dose 6 UNIT; Start 04/14/19 at 07:50 Insulin Glargine (Lantus) 18 units DAILY@2000 SC Last administered on 04/21/19 21:01; Admin Dose 18 UNITS; Start 04/13/19 at 20:00 Saccharomyces Boulardii (Florastor) 500 mg BID PO Last administered on 04/22/19 09:29; Admin Dose 500 MG; Start 04/15/19 at 11:00 Alteplase, Recombinant (Cathflo (Activase)) 2 mg MAY REPEAT X1 PRN CATHETER IF CATHETER REMAINS OCCULUDED; Start 04/16/19 at 15:00 Doxycycline Hyclate (Vibramycin) 100 mg BID PO Last administered on 04/22/19 09:28; Admin Dose 100 MG; Start 04/21/19 at 21:00 Levofloxacin (Levaquin) 250 mg DAILY@06 PO Last administered on 04/22/19 05:46; Admin Dose 250 MG; Start 04/22/19 at 06:00 Amlodipine Besylate (Norvasc) 2.5 mg BID PO Last administered on 04/22/19 09:30; Admin Dose 2.5 MG; Start 04/21/19 at 21:00 BETTE MALDONADO MD Apr 22, 2019 18:19
[2019-04-22 19:22] VITALS: BP 165/89; PULSE 77; RESP 18
[2019-04-22] MEDS ORDERED: INSULIN GLARGINE [LANTus] (100 UNITS/ML) SYG SC SCH (20:00)
[2019-04-22] MEDS: AMLODIPINE 5 MG TAB PO SCH (20:24)
[2019-04-23 01:36] VITALS: BP 149/84; PULSE 81; RESP 18
[2019-04-23] MEDS: LEVOFLOXACIN 250 MG TAB PO SCH (05:32)
[2019-04-23 07:59] VITALS: BP 157/87; PULSE 83; RESP 18
[2019-04-23] MEDS: DOXYCYCLINE 100 MG TAB PO SCH (08:24)
[2019-04-23] MEDS: MAGNESIUM OXIDE 400 MG TAB PO SCH (08:24)
[2019-04-23] MEDS: SACCHAROMYCES BOULARDII 250 MG CAP PO SCH (08:24)
[2019-04-23] MEDS: AMLODIPINE 5 MG TAB PO SCH (08:25)
[2019-04-23] MEDS: LISINOPRIL 20 MG TAB PO SCH (08:25)
[2019-04-23] MEDS: ACYCLOVIR 400 MG TAB PO SCH (08:26)
[2019-04-23] MEDS: FLUCONAZOLE 100 MG TAB PO SCH (08:26)
[2019-04-23] MEDS: FAMOTIDINE 20 MG TAB PO SCH (08:26)
[2019-04-23] MEDS: FUROSEMIDE 20 MG TAB PO SCH (08:26)
[2019-04-23] MEDS: DEXAMETHASONE 0.1% 5 ML OPH BOTH EYES SCH (08:27)
[2019-04-23] MEDS: INSULIN ASPART [NOVOLOG] 3 ML PEN SC SCH ×4 (08:31→13:21)
[2019-04-23] MEDS ORDERED: SACC250C PO (12:51)
[2019-04-23] MEDS ORDERED: LISI-471 PO (12:51)
[2019-04-23] MEDS ORDERED: INSU100I12 SQ (12:51)
[2019-04-23] MEDS ORDERED: LAS20 PO (12:51)
[2019-04-23] MEDS ORDERED: INSU100I33 SC (12:51)
[2019-04-23] MEDS ORDERED: AMLO-145 PO (12:51)
[2019-04-23] MEDS ORDERED: CARV12.579 PO (12:51)
--- NOTE | 2019-04-23 12:54 | PDOCDIS ---
Discharge Instructions DIAGNOSIS Discharge Diagnosis 1. Acute Myeloid Leukemia 2. Neutropenic fevers 3. Diabetes mellitus type 2. 4. Hypertension. 5. Cardiomyopathy. EF of 35-40%. 6. Acute CHF exacerbation, systolic dysfunction. CONDITION [id number] Patient Condition: [id number] Stable HOME CARE INSTRUCTIONS: [id number] Special Diet: [id number] carbohydrate controlled FOLLOW UP/APPOINTMENTS Follow-up Plan Follow up at [facility] for further management and care 04/24/19 OTHER ORDERS: Other Orders: For further information regarding patient oncological condition. Please contact Dr. Jesse Parry at JAY REEVES NP Apr 23, 2019 12:54
--- NOTE | 2019-04-23 13:07 | DS ---
Date/Time of Note Date/Time of Note DATE: 04/23/19 TIME: 13:03 Discharge Summary Admission/Discharge Info Admit Date/Time Mar 23, 2019 at 16:10 Discharge Date/Time Discharge Diagnosis 1. Acute Myeloid Leukemia 2. Neutropenic fevers 3. Diabetes mellitus type 2. 4. Hypertension. 5. Cardiomyopathy. EF of 35-40%. 6. Acute CHF exacerbation, systolic dysfunction. Patient Condition: Stable Consults 1. Dr. Jesse Parry 2. Dr. Bay Nassar 3. Dr. Jun Ayala [facility] Course This is a 54-year-old male with history of hypertension, diabetes type 2, who came to the hospital on March 22, 2019 initially due to fevers. He was initially discharged home on Zithromax for possible URI. He did have blood drawn that showed him to have 4% blasts on manual differential. Pathologist informed the ER who then notified patient that he needed work-up for myeloproliferative disorder. As such she was admitted to [facility] for further care and evaluation. Patient was seen by oncologist. He did undergo a bone marrow biopsy with findings consistent with acute myeloid leukemia. He did undergo 7+3 regimen. He was monitored for pancytopenia. He was also seen by infectious disease microsoft dynamics consultant. He was placed on antibiotics. We did monitor him for neutropenic fevers. Patient was clinically improving. After evaluation patient still appeared to have blasts in smear 2 weeks after his 7+3 induction therapy. Per oncolgist, patient was FLT3 negative but 98% of the cells were CD33+. There was plan for Mylotarg however unable to receive medication at [facility]. Per discussion with oncologist patient may also need consideration for possible bone marrow transplant. due to insurance issue and after discussion with care team there is plan for patient to follow-up at [facility] for further evaluation for possible bone marrow transplant and administration of Mylotarg. He was otherwise optimized medically. We did resume him on antibiotics while in-house and of note his cultures were negative. ID consulted followed that did help manage antibiotic therapy. He was continued on insulin for his diabetes and antihypertensives for high blood pressure. He was noted to be with cardiomyopathy with an EF 35 to 40% and was optimized on cardiovascular medications per reefer truck driver recommendations. We also resumed on diuretics as well. During his course of stay he did improve. His neutropenia did resolve. He was advised for outpatient follow-up at [facility] on April 24, 2019. For further information regarding patient oncological condition. Please contact Dr. Jesse Parry at Home Meds Active Scripts Insulin Lispro (Humalog Kwikpen U-100) 100 Unit/1 Ml Insuln.pen, 8 UNIT SQ AC MEALS, #2 EA Prov:JAY REEVES NP 04/23/19 Insulin Glargine,Hum.rec.anlog (Basaglar Kwikpen U-100) 100 Unit/1 Ml Insuln.pen, 24 UNIT SC QHS, #2 EA Prov:JAY REEVES NP 04/23/19 Saccharomyces Boulardii* (Florastor*) 250 Mg Cap, 500 MG PO BID, #60 CAP Prov:JAY REEVES NP 04/23/19 Furosemide (Lasix) 20 Mg Tab, 20 MG PO DAILY, #30 TAB Prov:JAY REEVES NP 04/23/19 Carvedilol* (Carvedilol*) 12.5 Mg Tablet, 12.5 MG PO BID, #60 TAB Prov:JAY REEVES NP 04/23/19 Amlodipine Besylate* (Amlodipine Besylate*) 5 Mg Tablet, 5 MG PO BID, #60 TAB Prov:JAY REEVES NP 04/23/19 Lisinopril* (Lisinopril*) 20 Mg Tablet, 20 MG PO DAILY, #30 TAB Prov:JAY REEVES NP 04/23/19 Reported Medications Acetaminophen* (Acetaminophen*) 325 Mg Tablet, 325 MG PO QID PRN for PAIN AND OR ELEVATED TEMP, #30 TAB 03/23/19 Ondansetron Hcl* (Zofran*) 4 Mg Tab, 4 MG PO TID PRN for NAUSEA AND OR VOMITING, TAB 03/23/19 Discontinued Reported Medications Metoprolol Tartrate* (Lopressor*) 50 Mg Tab, 50 MG PO DAILY, #60 TAB 03/23/19 Azithromycin* (Azithromycin*) 500 Mg Tablet, 500 MG PO DAILY, TAB START DATE 03/21/19 03/23/19 Metformin Hcl* (Metformin Hcl*) 500 Mg Tablet, 500 MG PO WITH BREAKFAST DINNE, #60 TAB 03/23/19 Discontinued Scripts Ibuprofen* (Motrin*) 800 Mg Tab, 800 MG PO Q6H PRN for PAIN AND OR ELEVATED TEMP, #30 TAB Prov:CRISPIN JUSTICE MD 03/22/19 Follow-up Plan Follow up at [facility] for further management and care 04/24/19 Primary Care Provider Care Physician No Primary Time spent on discharge: > 30 minutes Pending Labs Laboratory Tests Test 04/22/19 17:34 04/22/19 20:22 04/23/19 04:26 04/23/19 08:22 Bedside 194 260 206 Glucose mg/dL (70-220) mg/dL (70-220) mg/dL (70-220) White Blood 10.4 Count 10^3/ul (4.8-1 0.8) Red Blood 3.51 Count 10^6/ul (4.70- 6.10) Hemoglobin 10.7 g/dl (14.0-18. 0) Hematocrit 32.1 % (42.0-52.0) Mean 91.5 Corpuscular fl (82.0-101.0 Volume ) Mean 30.5 Corpuscular pg (29.0-33.0) Hemoglobin Mean 33.3 Corpuscular g/dl (32.0-37. Hemoglobin Conc 0) ent Red Cell 12.5 Distribution % (11.5-14.5) Width Platelet Count 524 10^3/UL (140-4 15) Mean Platelet 8.4 Volume fl (7.4-10.4) Immature 21.900 Granulocytes % % (0.001-0.429 ) Neutrophils % % (39.0-77.0) Segmented 29 % (39-77) Neutrophils % (Manual) Band 22 % (0-4) Neutrophils % (Manual) Lymphocytes % % (15.0-51.0) Lymphocytes % 13 % (15-51) (Manual) Reactive 3 % (0-0) Lymphocytes % (Manual) Monocytes % % (0.0-11.0) Monocytes % 17 % (0-11) (Manual) Eosinophils % % (0.0-7.0) Basophils % % (0.0-2.0) Metamyelocytes 6 % (0-0) % (manual) Myelocytes % 6 % (0-0) (Manual) Promyelocytes % 3 % (0-0) (Manual) Blast Cells % 1.0 % (0-0) (Manual) Nucleated Red 0.0 Blood Cells % /100WBC (0.0-0 .0) Immature 2.270 Granulocytes # 10^3/ul (0.0-0 .031) Neutrophils # 10^3/ul (1.6-7 .5) Neutrophils # 3.2 (Manual) 10^3/ul (1.6-7 .5) Band 2.2 Neutrophils # 10^3/ul (0.0-0 .6) Lymphocytes 1.3 (Manual) 10^3/ul (0.8-2 .9) Lymphocytes # 10^3/ul (0.8-2 .9) Reactive 0.3 Lymphocytes # 10^3/ul (0.0-0 .0) Monocytes # 10^3/ul (0.3-0 .9) Monocytes # 1.7 (Manual) 10^3/ul (0.3-0 .9) Eosinophils # 10^3/ul (0.0-0 .5) Basophils # 10^3/ul (0.0-0 .1) Metamyelocytes 0.6 # 10^3/ul (0.0-0 .0) Myelocytes # 0.6 10^3/ul (0.0-0 .0) Promyelocytes 0.3 # 10^3/ul (0-0) Nucleated Red 10^3/ul (0.0-0 Blood Cells # .0) Platelet NORMAL Estimate Poikilocytosis 1+ (0-0) Anisocytosis 1+ (0-0) Sodium Level 136 mmol/L (135-14 4) Potassium 3.7 Level mmol/L (3.5-5. 1) Chloride Level 98 mmol/L (97-110 ) Carbon Dioxide 29 Level mmol/L (21-31) Anion Gap 9 (5-13) Blood Urea 12 Nitrogen mg/dl (7-20) Creatinine 0.57 mg/dl (0.61-1. 24) Est Glomerular > 60 Filtrat mL/min (>60) Rate mL/min Glucose Level 183 mg/dl (70-220) Calcium Level 9.2 mg/dl (8.4-10. 2) JAY REEVES NP Apr 23, 2019 13:07
[2019-04-23] MEDS ORDERED: INSULIN ASPART [NOVOLOG] 3 ML PEN SC STA (13:14)
--- NOTE | 2019-04-23 13:20 | CONS ---
Assessment/Plan Assessment/Plan Hospital Course (Demo Recall) Alert, feels good Indwelling's: Right IJ Port-A-Cath Blood cultures and urine culture negative Antimicrobials: Levaquin, Doxycycline, fluconazole, acyclovir Physical examination: Well-developed middle-aged man who is alert in no distress head atraumatic normocephalic sclera nonicteric vehicle mucosa pink neck is supple chest rise symmetrical breath sounds clear Heart S1-S2 abdomen soft bowel sounds present extremities without cyanosis edema Assessment: 1. S/p neutropenic fevers 2. AML, newly diagnosed 3. Diabetes 4. Hypertension 5. Pancytopenia Plan: Doing well, ok dc off abx Consultation Date/Type/Reason Admit Date/Time Mar 23, 2019 at 16:10 Initial Consult Date 03/24/19 Type of Consult id Requesting Provider: KATIE PACE NP Date/Time of Note DATE: 04/23/19 TIME: 13:19 Exam/Review of Systems Exam Vitals Vital Signs Date Temp Pulse Resp B/P (MAP) Pulse Ox O2 O2 Flow FiO2 Time Delivery Rate 04/23/19 98.0 83 18 157/87 95 Room Air 07:59 (110) Intake and Output 04/22/19 04/22/19 04/23/19 1515:00 23:00 07:00 IntakeIntake Total 240 ml 520 ml 400 ml BalanceBalance 240 ml 520 ml 400 ml Results Result Diagram: 04/23/19 0426 04/23/19 0426 Results 24hrs Laboratory Tests Test 04/22/19 17:34 04/22/19 20:22 04/23/19 04:26 04/23/19 08:22 Bedside Glucose 194 260 H 206 White Blood Count 10.4 # Red Blood Count 3.51 L Hemoglobin 10.7 L Hematocrit 32.1 L Mean Corpuscular 91.5 Volume Mean Corpuscular 30.5 Hemoglobin Mean Corpuscular 33.3 Hemoglobin Concent Red Cell 12.5 Distribution Width Platelet Count 524 H Mean Platelet Volume 8.4 Immature 21.900 H Granulocytes % Neutrophils % Segmented 29 L Neutrophils % (Manual) Band Neutrophils % 22 H (Manual) Lymphocytes % Lymphocytes % 13 L (Manual) Reactive Lymphocytes 3 H % (Manual) Monocytes % Monocytes % (Manual) 17 H Eosinophils % Basophils % Metamyelocytes % 6 H (manual) Myelocytes % 6 H (Manual) Promyelocytes % 3 H (Manual) Blast Cells % 1.0 H (Manual) Nucleated Red Blood 0.0 Cells % Immature 2.270 H Granulocytes # Neutrophils # Neutrophils # 3.2 (Manual) Band Neutrophils # 2.2 H Lymphocytes (Manual) 1.3 Lymphocytes # Reactive Lymphocytes 0.3 H # Monocytes # Monocytes # (Manual) 1.7 H Eosinophils # Basophils # Metamyelocytes # 0.6 H Myelocytes # 0.6 H Promyelocytes # 0.3 H Nucleated Red Blood Cells # Platelet Estimate NORMAL Poikilocytosis 1+ Anisocytosis 1+ Sodium Level 136 Potassium Level 3.7 Chloride Level 98 Carbon Dioxide Level 29 Anion Gap 9 Blood Urea Nitrogen 12 Creatinine 0.57 L Est Glomerular > 60 Filtrat Rate mL/min Glucose Level 183 Calcium Level 9.2 Test 04/23/19 13:07 Bedside Glucose 248 H Medications Medication Current Medications Insulin Aspart (Novolog Insulin Pen) NOVOLOG *MILD* ALGORI... WITH MEALS BEDTIME SC Last administered on 04/23/19 08:31; Admin Dose 2 UNIT; Start 03/23/19 at 18:00 IV Flush (NS 3 ml) 3 ml PER PROTOCOL IV Last administered on 04/08/19 05:29; Admin Dose 3 ML; Start 03/23/19 at 18:00 Ondansetron HCl (Zofran Inj) 4 mg Q6H PRN IV NAUSEA/VOMITING Last administered on 04/09/19 17:54; Admin Dose 4 MG; Start 03/23/19 at 18:00 Acetaminophen (Tylenol Tab) 650 mg Q6H PRN PO .PAIN 1-3 OR TEMP Last administered on 04/15/19 10:57; Admin Dose 650 MG; Start 03/23/19 at 18:00 Acetaminophen/ Hydrocodone Bitart ([place] (5/325)) 1 tab Q6H PRN PO .MOD PAIN 4- 6 Last administered on 04/10/19 03:07; Admin Dose 1 TAB; Start 03/23/19 at 18:00 Miscellaneous Information 1 ea NOTE XX ; Start 03/23/19 at 18:00 Glucose (Glutose) 15 gm Q15M PRN PO DECREASED GLUCOSE; Start 03/23/19 at 18:00 Glucose (Glutose) 22.5 gm Q15M PRN PO DECREASED GLUCOSE; Start 03/23/19 at 18:00 Dextrose (D50w Syringe) 25 ml Q15M PRN IV DECREASED GLUCOSE; Start 03/23/19 at 18:00 Dextrose (D50w Syringe) 50 ml Q15M PRN IV DECREASED GLUCOSE; Start 03/23/19 at 18:00 Glucagon (Glucagen) 1 mg Q15M PRN IM DECREASED GLUCOSE; Start 03/23/19 at 18:00 Glucose (Glutose) 15 gm Q15M PRN BUCCAL DECREASED GLUCOSE; Start 03/23/19 at 18:00 Hydralazine HCl (Apresoline) 10 mg Q4H PRN IV FOR SBP>170; Start 03/26/19 at 03:30 Albuterol/ Ipratropium (Duoneb) 3 ml Q2H RESP THERAPY PRN HHN sob; Start 03/26/19 at 12:30 Fluconazole (Diflucan) 100 mg DAILY PO Last administered on 04/23/19 08:26; Admin Dose 100 MG; Start 04/02/19 at 15:30 Acyclovir (Zovirax) 400 mg DAILY PO Last administered on 04/23/19 08:26; Admin Dose 400 MG; Start 04/03/19 at 09:00 Al Hydrox/Mg Hydrox/Simethicone (Mag-Al Plus) 30 ml Q6H PRN PO GASTROINTESTINAL UPSET Last administered on 04/14/19 22:43; Admin Dose 30 ML; Start 04/02/19 at 18:30 Carvedilol (Coreg) 12.5 mg BID PO Last administered on 04/23/19 08:27; Admin Dose 12.5 MG; Start 04/02/19 at 21:00 Dexamethasone (Maxidex 0.1% Oph) 2 drop BID BOTH EYES Last administered on 04/23/19 08:27; Admin Dose 2 DROP; Start 04/03/19 at 21:00 Lisinopril (Zestril) 20 mg BID PO Last administered on 04/23/19 08:25; Admin Dose 20 MG; Start 04/05/19 at 21:00 Famotidine (Pepcid) 20 mg DAILY PO Last administered on 04/23/19 08:26; Admin Dose 20 MG; Start 04/11/19 at 09:00 Magnesium Oxide (Mag-Ox 400) 400 mg BID PO Last administered on 04/23/19 08:24; Admin Dose 400 MG; Start 04/10/19 at 21:00 Loperamide HCl (Imodium Cap) 2 mg Q8H PRN PO DIARRHEA Last administered on 04/15/19 08:40; Admin Dose 2 MG; Start 04/13/19 at 09:00 Furosemide (Lasix) 20 mg DAILY PO Last administered on 04/23/19 08:26; Admin Dose 20 MG; Start 04/19/19 at 09:00 Saccharomyces Boulardii (Florastor) 500 mg BID PO Last administered on 04/23/19 08:24; Admin Dose 500 MG; Start 04/15/19 at 11:00 Alteplase, Recombinant (Cathflo (Activase)) 2 mg MAY REPEAT X1 PRN CATHETER IF CATHETER REMAINS OCCULUDED; Start 04/16/19 at 15:00 Doxycycline Hyclate (Vibramycin) 100 mg BID PO Last administered on 04/23/19 08:24; Admin Dose 100 MG; Start 04/21/19 at 21:00 Levofloxacin (Levaquin) 250 mg DAILY@06 PO Last administered on 04/23/19 05:32; Admin Dose 250 MG; Start 04/22/19 at 06:00 Miscellaneous Information (*Order Clarification Bulletin) MEDICATION REQUIRES CLARIFICATI... Q8H XX ; Start 04/22/19 at 18:30; Stop 04/25/19 at 18:29 Insulin Aspart (Novolog Insulin Pen) 7 unit WITH MEALS SC Last administered on 04/23/19 08:31; Admin Dose 7 UNIT; Start 04/23/19 at 07:50 Insulin Glargine (Lantus) 24 units DAILY@2000 SC Last administered on 04/22/19 20:26; Admin Dose 24 UNITS; Start 04/22/19 at 20:00 Amlodipine Besylate (Norvasc) 5 mg BID PO Last administered on 04/23/19 08:25; Admin Dose 5 MG; Start 04/22/19 at 21:00 JEANNIE NICHOLSON NP Apr 23, 2019 13:20
--- NOTE | 2019-04-23 16:07 | QN ---
Documentation Comment Case discussed with CIRCULAR SHEAR OPERATOR Deny and patient. The patient is stable but will need to be seen very soon at a tertiary center. I think that further chemotherapy and probably a bone marrow transplant should be considered since the response to the 7+3 induction was not optimal. Blasts were seen in the peripheral blood after about two weeks and have persisted. The patient is leaving the hospital today but is instructed to go to Urgent Care at [facility] to get referred to the Hematology Service there. I also told him I am available to talk with the physicians there to assist in the transition. ( ) BETTE MALDONADO MD Apr 23, 2019 16:07
--- NOTE | 2019-04-23 16:48 | CONS ---
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 Diabetes Hypertension Continue maintenance diuretics and titrate as needed Given elevated blood pressure, amlodipine dose has been increased Continue carvedilol and lisinopril as tolerated Consultation Date/Type/Reason Admit Date/Time Mar 23, 2019 at 16:10 Initial Consult Date 03/24/19 Type of Consult Cardiology Requesting Provider: KATIE PACE NP Date/Time of Note DATE: 04/23/19 TIME: 16:47 24 HR Interval Summary Free Text/Dictation No shortness of breath, chest pain or palpitations Exam/Review of Systems Vital Signs Vitals Vital Signs Date Temp Pulse Resp B/P (MAP) Pulse Ox O2 O2 Flow FiO2 Time Delivery Rate 04/23/19 98.0 83 18 157/87 95 Room Air 07:59 (110) Intake and Output 04/22/19 04/22/19 04/23/19 1515:00 23:00 07:00 IntakeIntake Total 240 ml 520 ml 400 ml BalanceBalance 240 ml 520 ml 400 ml Exam Constitutional: alert, oriented Head: normocephalic Respiratory: clear to auscultation, normal air movement Cardiovascular: regular rate and rhythm, other (S1-S2 heard) Gastrointestinal: soft, non-tender, bowel sounds Extremities: other (No edema) Labs Result Diagram: 04/23/19 0426 04/23/19 0426 Results 24hrs Laboratory Tests Test 04/22/19 17:34 04/22/19 20:22 04/23/19 04:26 04/23/19 08:22 Bedside Glucose 194 260 H 206 White Blood Count 10.4 # Red Blood Count 3.51 L Hemoglobin 10.7 L Hematocrit 32.1 L Mean Corpuscular 91.5 Volume Mean Corpuscular 30.5 Hemoglobin Mean Corpuscular 33.3 Hemoglobin Concent Red Cell 12.5 Distribution Width Platelet Count 524 H Mean Platelet Volume 8.4 Immature 21.900 H Granulocytes % Neutrophils % Segmented 29 L Neutrophils % (Manual) Band Neutrophils % 22 H (Manual) Lymphocytes % Lymphocytes % 13 L (Manual) Reactive Lymphocytes 3 H % (Manual) Monocytes % Monocytes % (Manual) 17 H Eosinophils % Basophils % Metamyelocytes % 6 H (manual) Myelocytes % 6 H (Manual) Promyelocytes % 3 H (Manual) Blast Cells % 1.0 H (Manual) Nucleated Red Blood 0.0 Cells % Immature 2.270 H Granulocytes # Neutrophils # Neutrophils # 3.2 (Manual) Band Neutrophils # 2.2 H Lymphocytes (Manual) 1.3 Lymphocytes # Reactive Lymphocytes 0.3 H # Monocytes # Monocytes # (Manual) 1.7 H Eosinophils # Basophils # Metamyelocytes # 0.6 H Myelocytes # 0.6 H Promyelocytes # 0.3 H Nucleated Red Blood Cells # Platelet Estimate NORMAL Poikilocytosis 1+ Anisocytosis 1+ Sodium Level 136 Potassium Level 3.7 Chloride Level 98 Carbon Dioxide Level 29 Anion Gap 9 Blood Urea Nitrogen 12 Creatinine 0.57 L Est Glomerular > 60 Filtrat Rate mL/min Glucose Level 183 Calcium Level 9.2 Test 04/23/19 13:07 Bedside Glucose 248 H Medications Medications Current Medications Insulin Aspart (Novolog Insulin Pen) NOVOLOG *MILD* ALGORI... WITH MEALS BEDTIME SC Last administered on 04/23/19 13:20; Admin Dose 3 UNIT; Start 03/23/19 at 18:00 IV Flush (NS 3 ml) 3 ml PER PROTOCOL IV Last administered on 04/08/19 05:29; Admin Dose 3 ML; Start 03/23/19 at 18:00 Ondansetron HCl (Zofran Inj) 4 mg Q6H PRN IV NAUSEA/VOMITING Last administered on 04/09/19 17:54; Admin Dose 4 MG; Start 03/23/19 at 18:00 Acetaminophen (Tylenol Tab) 650 mg Q6H PRN PO .PAIN 1-3 OR TEMP Last administered on 04/15/19 10:57; Admin Dose 650 MG; Start 03/23/19 at 18:00 Acetaminophen/ Hydrocodone Bitart (Dazey (5/325)) 1 tab Q6H PRN PO .MOD PAIN 4- 6 Last administered on 04/10/19 03:07; Admin Dose 1 TAB; Start 03/23/19 at 18:00 Miscellaneous Information 1 ea NOTE XX ; Start 03/23/19 at 18:00 Glucose (Glutose) 15 gm Q15M PRN PO DECREASED GLUCOSE; Start 03/23/19 at 18:00 Glucose (Glutose) 22.5 gm Q15M PRN PO DECREASED GLUCOSE; Start 03/23/19 at 18:00 Dextrose (D50w Syringe) 25 ml Q15M PRN IV DECREASED GLUCOSE; Start 03/23/19 at 18:00 Dextrose (D50w Syringe) 50 ml Q15M PRN IV DECREASED GLUCOSE; Start 03/23/19 at 18:00 Glucagon (Glucagen) 1 mg Q15M PRN IM DECREASED GLUCOSE; Start 03/23/19 at 18:00 Glucose (Glutose) 15 gm Q15M PRN BUCCAL DECREASED GLUCOSE; Start 03/23/19 at 18:00 Hydralazine HCl (Apresoline) 10 mg Q4H PRN IV FOR SBP>170; Start 03/26/19 at 03:30 Albuterol/ Ipratropium (Duoneb) 3 ml Q2H RESP THERAPY PRN HHN sob; Start 03/26/19 at 12:30 Fluconazole (Diflucan) 100 mg DAILY PO Last administered on 04/23/19 08:26; Admin Dose 100 MG; Start 04/02/19 at 15:30 Acyclovir (Zovirax) 400 mg DAILY PO Last administered on 04/23/19 08:26; Admin Dose 400 MG; Start 04/03/19 at 09:00 Al Hydrox/Mg Hydrox/Simethicone (Mag-Al Plus) 30 ml Q6H PRN PO GASTROINTESTINAL UPSET Last administered on 04/14/19 22:43; Admin Dose 30 ML; Start 04/02/19 at 18:30 Carvedilol (Coreg) 12.5 mg BID PO Last administered on 04/23/19 08:27; Admin Dose 12.5 MG; Start 04/02/19 at 21:00 Dexamethasone (Maxidex 0.1% Oph) 2 drop BID BOTH EYES Last administered on 04/23/19 08:27; Admin Dose 2 DROP; Start 04/03/19 at 21:00 Lisinopril (Zestril) 20 mg BID PO Last administered on 04/23/19 08:25; Admin Dose 20 MG; Start 04/05/19 at 21:00 Famotidine (Pepcid) 20 mg DAILY PO Last administered on 04/23/19 08:26; Admin Dose 20 MG; Start 04/11/19 at 09:00 Magnesium Oxide (Mag-Ox 400) 400 mg BID PO Last administered on 04/23/19 08:24; Admin Dose 400 MG; Start 04/10/19 at 21:00 Loperamide HCl (Imodium Cap) 2 mg Q8H PRN PO DIARRHEA Last administered on 04/15/19 08:40; Admin Dose 2 MG; Start 04/13/19 at 09:00 Furosemide (Lasix) 20 mg DAILY PO Last administered on 04/23/19 08:26; Admin Dose 20 MG; Start 04/19/19 at 09:00 Saccharomyces Boulardii (Florastor) 500 mg BID PO Last administered on 04/23/19 08:24; Admin Dose 500 MG; Start 04/15/19 at 11:00 Alteplase, Recombinant (Cathflo (Activase)) 2 mg MAY REPEAT X1 PRN CATHETER IF CATHETER REMAINS OCCULUDED; Start 04/16/19 at 15:00 Miscellaneous Information (*Order Clarification Bulletin) MEDICATION REQUIRES CLARIFICATI... Q8H XX ; Start 04/22/19 at 18:30; Stop 04/25/19 at 18:29 Insulin Aspart (Novolog Insulin Pen) 7 unit WITH MEALS SC Last administered on 04/23/19 13:21; Admin Dose 7 UNIT; Start 04/23/19 at 07:50 Insulin Glargine (Lantus) 24 units DAILY@2000 SC Last administered on 04/22/19 20:26; Admin Dose 24 UNITS; Start 04/22/19 at 20:00 Amlodipine Besylate (Norvasc) 5 mg BID PO Last administered on 04/23/19 08:25; Admin Dose 5 MG; Start 04/22/19 at 21:00 Jun Ayala DO Apr 23, 2019 16:48
== END 2019-04-23 16:55 | disposition home or self-care (01) | DRG 834 ==
LOC: E/R 14:36 → 2NE 16:10 → MS1 03-29 17:25
PROVIDERS: ADMIT Internal Medicine; ATTEND Internal Medicine
PROC: 07DR3ZX Extraction of Iliac Bone Marrow, Percutaneous Approach, Diagnostic (ICD-10-PCS; principal; 2019-03-26)
PROC: 05HM33Z Insertion of Infusion Device into Right Internal Jugular Vein, Percutaneous Approach (ICD-10-PCS; 2019-03-28)
PROC: B513YZA Fluoroscopy of Right Jugular Veins using Other Contrast, Guidance (ICD-10-PCS; 2019-03-28)
PROC: 30233N1 Transfusion of Nonautologous Red Blood Cells into Peripheral Vein, Percutaneous Approach (ICD-10-PCS; 2019-03-29)
PROC: 3E05305 Introduction of Other Antineoplastic into Peripheral Artery, Percutaneous Approach (ICD-10-PCS; 2019-03-30)
PROC: 30233R1 Transfusion of Nonautologous Platelets into Peripheral Vein, Percutaneous Approach (ICD-10-PCS; 2019-04-06)
DX: C92.00 Acute myeloblastic leukemia, not having achieved remission (principal); I50.23 Acute on chronic systolic (congestive) heart failure; D61.810 Antineoplastic chemotherapy induced pancytopenia; I42.9 Cardiomyopathy, unspecified; R50.81 Fever presenting with conditions classified elsewhere; D69.6 Thrombocytopenia, unspecified; E11.9 Type 2 diabetes mellitus without complications; R13.10 Dysphagia, unspecified; D63.8 Anemia in other chronic diseases classified elsewhere; I11.0 Hypertensive heart disease with heart failure; T45.1X5A Adverse effect of antineoplastic and immunosuppressive drugs, initial encounter
CPT/HCPCS: 36415; 36430; 36556; 36558; 70450; 71045; 76942; 77012; 80048; 80053; 80061; 80202; 81001; 81003; 82270; 82728; 82962; 83010; 83036; 83540; 83605; 83615; 83690; 83735; 84100; 84443; 84560; 85025; 85049; 85362; 85378; 85384; 85610; 85651; 85670; 85730; 86140; 86644; 86850; 86900; 86901; 86920; 86945; 87075; 87086; 88305; 88311; 88313; 88341; 88342; 93005; 93306; J9100; J0692; J1100; J1644; J1815; J1940; J2185; J2250; J2405; J2997; J3010; J3370; J3475; J7030; J7050; P9016; P9035